=== PATIENT | female | born 1945 | race Caucasian/White ===

== ENCOUNTER 2020-05-26 07:43 | Outpatient (REF) | payer MEDICARE, SELFPAY ==
[2020-05-26 08:34] LABS: MANUAL DIFF FLAG NO
[2020-05-26 08:38] LABS: Basophils Absolute Auto 0.1 X10*3/uL (0.0-0.2); Basophils Percent Auto 0.7 % (0-2); Eosinophils Absolute Auto 0.6 X10*3/uL (0.0-0.4); Eosinophils Percent Auto 6.6 % (0-4); Hematocrit 31.4 % (37-47); Hemoglobin 9.5 g/dl (12.0-16.0); Imm Gran Abs Auto 0.03 X10*3/uL (0.00-0.03); Imm Gran Pct Auto 0.3 % (0.0-0.4); Lymphocytes Absolute Auto 1.6 X10*3/uL (1.2-4.9); Mean Corpuscular HGB Conc 30.3 g/dl (31.0-35.0); Mean Corpuscular Hemoglobin 25.8 pg (27.0-33.0); Mean Corpuscular Volume 85.3 fL (80-98); Mean Platelet Volume 10.6 fL (9.4-12.3); Monocytes Absolute Auto 1.4 X10*3/uL (0.1-1.2); Monocytes Percent Auto 15.7 % (2-11); Neutrophils Absolute Auto 5.3 X10*3/uL (2.0-8.3); Neutrophils Percent Auto 58.7 % (45-73); Platelet Count 264 X10*3/uL (160-400); Red Blood Count 3.68 X10*6/uL (4.20-5.50); Red Cell Distribution Width 16.8 % (11.0-16.0); White Blood Count 9.1 X10*3/uL (4.8-10.8)
[2020-05-26 09:17] LABS: Alanine Aminotransferase 15 U/L (0-31); Albumin Level 3.8 g/dL (3.5-5.0); Alkaline Phosphatase 73 U/L (39-117); Anion Gap 14 (12-20); Aspartate Amino Transferase 24 U/L (5-31); Bilirubin Total 0.3 mg/dL (0.0-1.0); Blood Urea Nitrogen 18 mg/dL (9-16); Calcium 9.2 mg/dL (8.4-10.2); Carbon Dioxide 23 mmol/L (22-29); Chloride 105 mmol/L (96-108); Cholesterol 119 mg/dL; Estimated Glomerular Filt Rate 51; Glucose Random 102 mg/dL (60-115); HDL Cholesterol 59 mg/dL; LDL Cholesterol Calculated 49 mg/dl; Potassium 4.3 mmol/l (3.3-5.1); Sodium 138 mmol/L (135-145); Total Protein 7.4 g/dL (6.5-8.0); Triglycerides 57 mg/dL
[2020-05-26 09:26] LABS: Free T4 (Free Thyroxine) 0.99 ng/dL (0.71-1.85); Thyroid Stimulating Hormone 0.88 uIU/mL (0.32-4.0)
== END 2020-05-26 07:44 | disposition home or self-care (01) ==
LOC: HO.LAB 07:43
PROVIDERS: Visit Provider Internal Medicine Medical Oncology
DX: E03.9 Hypothyroidism, unspecified (principal); S22.080A Wedge compression fracture of T11-T12 vertebra, initial encounter for closed fracture; C81.90 Hodgkin lymphoma, unspecified, unspecified site; C85.80 Other specified types of non-Hodgkin lymphoma, unspecified site; X58.XXXA Exposure to other specified factors, initial encounter; Y93.9 Activity, unspecified; Y92.9 Unspecified place or not applicable; Y99.9 Unspecified external cause status
CPT/HCPCS: 36415; 80053; 80061; 84439; 84443; 85025

== ENCOUNTER 2020-07-22 07:26 | Outpatient (REF) | payer MEDICARE, SELFPAY ==
--- NOTE | ~2020-07-22 | MM_ITS ---
EXAMINATION: MM SCREENING DIGITAL BREAST TOMOSYNTHESIS, LEFT CLINICAL INFORMATION: Right mastectomy for breast cancer 2014. Due for yearly. COMPARISON: Mammography: 07/17/2019, 07/10/2018, 07/05/2017 TECHNIQUE: Digital breast tomosynthesis is performed in both the craniocaudal and mediolateral oblique views along with computer-aided detection (CAD). Synthesized 2D images are generated from the tomosynthesis. Additional exaggerated left CC view is provided. FINDINGS: There are scattered areas of fibroglandular density (ACR BI-RADS breast composition Category b). Parenchymal pattern is similar to prior studies. There is a small dermal lesion again overlying the upper breast. Pacemaker generator overlies and partly obscures the axilla on the MLO view. There are benign grouped coarse calcifications again seen mid upper outer quadrant. There is no interval mass or architectural abnormality or abnormal calcifications. No significant changes. MM/MM tomosynthesis screening LT IMPRESSION: No mammographic evidence of malignancy. ASSESSMENT: BI-RADS 2: Benign RECOMMENDATION: Routine annual mammography screening. This patient's information was entered into a reminder system with a target due date for their next mammogram.
== END 2020-07-22 07:27 | disposition home or self-care (01) ==
LOC: HO.MAMMO 07:26
PROVIDERS: PCP Internal Medicine Medical Oncology; Visit Provider Internal Medicine Medical Oncology
DX: Z12.31 Encounter for screening mammogram for malignant neoplasm of breast (principal)
CPT/HCPCS: 77063; 77067

== ENCOUNTER 2020-08-24 08:18 | Outpatient (REF) | payer MEDICARE, SELFPAY ==
[2020-08-24 09:43] LABS: MANUAL DIFF FLAG NO
[2020-08-24 10:02] LABS: Basophils Absolute Auto 0.1 X10*3/uL (0.0-0.2); Basophils Percent Auto 0.7 % (0-2); Eosinophils Absolute Auto 0.5 X10*3/uL (0.0-0.4); Eosinophils Percent Auto 7.4 % (0-4); Hemoglobin 8.3 g/dl (12.0-16.0); Imm Gran Abs Auto 0.02 X10*3/uL (0.00-0.03); Imm Gran Pct Auto 0.3 % (0.0-0.4); Lymphocytes Absolute Auto 1.3 X10*3/uL (1.2-4.9); Lymphocytes Percent Auto 17.9 % (20-40); Mean Corpuscular HGB Conc 29.6 g/dl (31.0-35.0); Mean Corpuscular Hemoglobin 24.7 pg (27.0-33.0); Mean Corpuscular Volume 83.3 fL (80-98); Mean Platelet Volume 10.8 fL (9.4-12.3); Monocytes Absolute Auto 1.1 X10*3/uL (0.1-1.2); Monocytes Percent Auto 14.4 % (2-11); NRBC Pct Auto 0.3 /100WBC (0.0-0.2); Neutrophils Absolute Auto 4.3 X10*3/uL (2.0-8.3); Neutrophils Percent Auto 59.3 % (45-73); Platelet Count 264 X10*3/uL (160-400); Red Blood Count 3.36 X10*6/uL (4.20-5.50); Red Cell Distribution Width 17.9 % (11.0-16.0); White Blood Count 7.3 X10*3/uL (4.8-10.8)
[2020-08-24 10:17] LABS: Alanine Aminotransferase 15 U/L (0-31); Albumin Level 3.7 g/dL (3.5-5.0); Alkaline Phosphatase 71 U/L (39-117); Anion Gap 13 (12-20); Aspartate Amino Transferase 22 U/L (5-31); Bilirubin Total 0.5 mg/dL (0.0-1.0); Blood Urea Nitrogen 20 mg/dL (9-16); C Reactive Protein 0.07 mg/dL (< or = 0.50); Calcium 9.4 mg/dL (8.4-10.2); Carbon Dioxide 24 mmol/L (22-29); Chloride 105 mmol/L (96-108); Estimated Glomerular Filt Rate 50; Glucose Random 93 mg/dL (60-115); Potassium 4.9 mmol/L (3.3-5.1); Sodium 137 mmol/L (135-145); Total Protein 7.1 g/dL (6.5-8.0)
[2020-08-24 10:41] LABS: Erythrocyte Sedimentation Rate 38 MM/HR (0-20)
[2020-08-24 10:57] LABS: Glucose Urine UA NEG (NEG); Leukocyte Esterase Urine TRACE (NEG); Nitrite Urine NEG (NEG); Urine Blood 1+ (NEG); Urine Ketones NEG (NEG); Urine Protein NEG (NEG-TRACE)
[2020-08-24 11:06] LABS: Appearance Urine CLEAR; Color Urine YELLOW
[2020-08-24 11:51] LABS: Mucus Urine 1+ /LPF; Renal Epithelial Cells Urine 1+ /LPF; Squamous Epithelial Cell Urine 1+ /LPF
== END 2020-08-24 08:19 | disposition home or self-care (01) ==
LOC: HO.LAB 08:18
PROVIDERS: PCP Internal Medicine Medical Oncology; Visit Provider Student in an Organized Health Care Education/Training Program
DX: M35.01 Sjogren syndrome with keratoconjunctivitis (principal)
CPT/HCPCS: 36415; 80053; 81001; 85025; 85652; 86140; 99212

== ENCOUNTER 2020-09-15 07:28 | Outpatient (REF) | payer MEDICARE, SELFPAY ==
[2020-09-15 08:13] LABS: MANUAL DIFF FLAG NO
[2020-09-15 08:40] LABS: Basophils Absolute Auto 0.1 X10*3/uL (0.0-0.2); Basophils Percent Auto 0.7 % (0-2); Eosinophils Absolute Auto 0.6 X10*3/uL (0.0-0.4); Eosinophils Percent Auto 8.2 % (0-4); Hematocrit 27.4 % (37-47); Hemoglobin 8.1 g/dl (12.0-16.0); Imm Gran Abs Auto 0.02 X10*3/uL (0.00-0.03); Imm Gran Pct Auto 0.3 % (0.0-0.4); Lymphocytes Absolute Auto 1.3 X10*3/uL (1.2-4.9); Lymphocytes Percent Auto 18.5 % (20-40); Mean Corpuscular HGB Conc 29.6 g/dl (31.0-35.0); Mean Corpuscular Hemoglobin 24.3 pg (27.0-33.0); Mean Corpuscular Volume 82.3 fL (80-98); Mean Platelet Volume 11.2 fL (9.4-12.3); Monocytes Absolute Auto 1.1 X10*3/uL (0.1-1.2); Monocytes Percent Auto 16.2 % (2-11); NRBC Pct Auto 0.7 /100WBC (0.0-0.2); Neutrophils Absolute Auto 3.8 X10*3/uL (2.0-8.3); Neutrophils Percent Auto 56.1 % (45-73); Platelet Count 278 X10*3/uL (160-400); Red Blood Count 3.33 X10*6/uL (4.20-5.50); Red Cell Distribution Width 18.1 % (11.0-16.0); White Blood Count 6.9 X10*3/uL (4.8-10.8)
[2020-09-15 09:10] LABS: Alanine Aminotransferase 326 U/L (0-31); Albumin Level 3.6 g/dL (3.5-5.0); Alkaline Phosphatase 201 U/L (39-117); Anion Gap 11 (12-20); Aspartate Amino Transferase 372 U/L (5-31); Bilirubin Total 0.5 mg/dL (0.0-1.0); Blood Urea Nitrogen 18 mg/dL (9-16); Calcium 8.9 mg/dL (8.4-10.2); Carbon Dioxide 24 mmol/L (22-29); Chloride 109 mmol/L (96-108); Cholesterol 112 mg/dL; Estimated Glomerular Filt Rate 58; Glucose Random 93 mg/dL (60-115); HDL Cholesterol 59 mg/dL; LDL Cholesterol Calculated 46 mg/dl; Potassium 4.6 mmol/L (3.3-5.1); Sodium 139 mmol/L (135-145); Total Protein 6.9 g/dL (6.5-8.0); Triglycerides 36 mg/dL
[2020-09-15 09:26] LABS: Free T4 (Free Thyroxine) 0.97 ng/dL (0.71-1.85); Thyroid Stimulating Hormone 0.64 uIU/mL (0.32-4.0)
== END 2020-09-15 07:29 | disposition home or self-care (01) ==
LOC: HO.LAB 07:28
PROVIDERS: PCP Internal Medicine Medical Oncology; Visit Provider Internal Medicine Medical Oncology
DX: E03.9 Hypothyroidism, unspecified (principal); C50.911 Malignant neoplasm of unspecified site of right female breast; C81.90 Hodgkin lymphoma, unspecified, unspecified site; C85.80 Other specified types of non-Hodgkin lymphoma, unspecified site; E78.00 Pure hypercholesterolemia, unspecified
CPT/HCPCS: 36415; 80053; 80061; 84439; 84443; 85025

== ENCOUNTER 2020-09-20 15:00 | Outpatient (REF) | payer MEDICARE, SELFPAY ==
[2020-09-20 15:54] LABS: MANUAL DIFF FLAG NO
[2020-09-20 15:59] LABS: Basophils Absolute Auto 0.1 X10*3/uL (0.0-0.2); Basophils Percent Auto 0.6 % (0-2); Eosinophils Absolute Auto 0.5 X10*3/uL (0.0-0.4); Eosinophils Percent Auto 6.5 % (0-4); Hematocrit 27.9 % (37-47); Hemoglobin 8.3 g/dl (12.0-16.0); Imm Gran Abs Auto 0.03 X10*3/uL (0.00-0.03); Imm Gran Pct Auto 0.4 % (0.0-0.4); Lymphocytes Absolute Auto 1.9 X10*3/uL (1.2-4.9); Lymphocytes Percent Auto 24.1 % (20-40); Mean Corpuscular HGB Conc 29.7 g/dl (31.0-35.0); Mean Corpuscular Hemoglobin 24.5 pg (27.0-33.0); Mean Corpuscular Volume 82.3 fL (80-98); Mean Platelet Volume 10.3 fL (9.4-12.3); Monocytes Absolute Auto 1.4 X10*3/uL (0.1-1.2); NRBC Pct Auto 0.4 /100WBC (0.0-0.2); Neutrophils Absolute Auto 3.9 X10*3/uL (2.0-8.3); Neutrophils Percent Auto 50.4 % (45-73); Platelet Count 281 X10*3/uL (160-400); Red Blood Count 3.39 X10*6/uL (4.20-5.50); Red Cell Distribution Width 19.5 % (11.0-16.0); White Blood Count 7.7 X10*3/uL (4.8-10.8)
[2020-09-20 16:37] LABS: Alanine Aminotransferase 176 U/L (0-31); Albumin Level 3.7 g/dL (3.5-5.0); Alkaline Phosphatase 219 U/L (39-117); Anion Gap 12 (12-20); Aspartate Amino Transferase 82 U/L (5-31); Bilirubin Total 0.6 mg/dL (0.0-1.0); Blood Urea Nitrogen 17 mg/dL (9-16); Calcium 9.3 mg/dL (8.4-10.2); Carbon Dioxide 24 mmol/L (22-29); Chloride 106 mmol/L (96-108); Estimated Glomerular Filt Rate 51; Gamma Glutamyl Transpeptidase 394 U/L (7-33); Glucose Random 116 mg/dL (60-115); Potassium 4.4 mmol/L (3.3-5.1); Sodium 138 mmol/L (135-145); Total Protein 7.3 g/dL (6.5-8.0)
[2020-09-20 16:41] LABS: Ferritin 14 ng/mL (10-250)
[2020-09-21 08:15] LABS: HBS Num1 0.38 mIU/mL (0-7.99); HBc Num1 0.09 S/CO (0.00-0.79); Hepatitis B Core Antibody Nonreactive (Nonreactive); ~Hepatitis B Surface Antibody NONREACTIVE (Nonreactive)
[2020-09-21 08:44] LABS: HBsAGNum1 0.23 S/CO (0.00-0.99); Hepatitis A Antibody IgM 0.13 Index (0-0.79); Hepatitis B Surface Antigen Negative (Negative); ~HepC Num1 0.08 S/CO (0.00-0.79); ~Hepatitis A Antibody IgM Nonreactive (Nonreactive); ~Hepatitis C Antibody Nonreactive (Nonreactive)
[2020-09-21 12:11] LABS: Alpha Fetoprotein 2.3 ng/mL
== END 2020-09-20 15:01 | disposition home or self-care (01) ==
LOC: HO.LAB 15:00
PROVIDERS: PCP Internal Medicine Medical Oncology; Visit Provider Internal Medicine Medical Oncology
DX: C81.90 Hodgkin lymphoma, unspecified, unspecified site (principal); C85.80 Other specified types of non-Hodgkin lymphoma, unspecified site; R79.89 Other specified abnormal findings of blood chemistry
CPT/HCPCS: 36415; 80053; 82105; 82728; 82977; 85025; 86704; 86706; 86709; 86803; 87340

== ENCOUNTER 2020-10-05 08:33 | Outpatient (REF) | payer MEDICARE, SELFPAY ==
--- NOTE | ~2020-10-05 | US_ITS ---
EXAMINATION: US ABDOMEN COMPLETE CLINICAL INFORMATION: History of gallstones. Abnormal LFTs. COMPARISON: CT of abdomen 10/14/2019. MRI abdomen 12/07/2016. Renal ultrasound 06/19/2011. TECHNIQUE: Real-time imaging of the abdominal viscera. FINDINGS: PANCREAS: Mixed cystic and solid lesion in the head of the pancreas measures 3.0 x 2.4 x 2.8 cm. ABDOMINAL AORTA: The proximal, mid, and distal segments are normal in caliber. INFERIOR VENA CAVA: Visualized portions are normal. LIVER: The liver is normal in size. The liver contour is normal. Hypoechoic subcapsular right hepatic mass measures 2.1 x 1.9 x 2.1 cm. Increased parenchymal echogenicity. There is no intrahepatic biliary duct dilatation seen. GALLBLADDER: The gallbladder is contracted. Multiple gallstones are present. Gallbladder wall thickening. No evidence of pericholecystic fluid. COMMON BILE DUCT: Normal in caliber measuring 0.6 cm in diameter. RIGHT KIDNEY: No hydronephrosis. No renal calculi or focal parenchymal lesions. The kidney measures 10.5 cm in maximum dimension. LEFT KIDNEY: No hydronephrosis. No renal calculi or focal parenchymal lesions. The kidney measures 9.4 cm in maximum dimension. SPLEEN: Surgically absent. FREE FLUID: None. US/US abdomen complete IMPRESSION: Cholelithiasis. Gallbladder wall thickening. These findings are equivocal for acute cholecystitis. Advise clinical correlation. Hypoechoic subcapsular right hepatic mass measures 2.1 x 1.9 x 2.1 cm. This lesion was not described on prior CT performed on 10/14/2019 For further characterization MR imaging is advised. Complex cystic lesion in the head of the pancreas measures approximately 3.0 x 2.4 x 2.8 cm. This most likely represents a cystic pancreatic neoplasm. The measurements are slightly larger than on prior studies however this may be technical.
[2020-10-05 12:52] LABS: Alanine Aminotransferase 21 U/L (0-31); Albumin Level 3.6 g/dL (3.5-5.0); Alkaline Phosphatase 106 U/L (39-117); Amylase 72 U/L (28-100); Anion Gap 14 (12-20); Aspartate Amino Transferase 33 U/L (5-31); Bilirubin Total 0.4 mg/dL (0.0-1.0); Blood Urea Nitrogen 16 mg/dL (9-16); Calcium 9.5 mg/dL (8.4-10.2); Carbon Dioxide 22 mmol/L (22-29); Chloride 107 mmol/L (96-108); Estimated Glomerular Filt Rate 53; Glucose Random 93 mg/dL (60-115); Lipase 139 U/L (8-78); Potassium 5.1 mmol/L (3.3-5.1); Sodium 138 mmol/L (135-145); Total Protein 7.3 g/dL (6.5-8.0)
[2020-10-05 13:02] LABS: Gamma Glutamyl Transpeptidase 149 U/L (7-33)
[2020-10-05 13:43] LABS: Erythrocyte Sedimentation Rate 38 MM/HR (0-20)
[2020-10-07 13:17] LABS: CA 27.29 30 U/mL (<38)
== END 2020-10-05 08:34 | disposition home or self-care (01) ==
LOC: HO.HMGCX 08:33
PROVIDERS: Visit Provider Internal Medicine Medical Oncology
DX: E03.9 Hypothyroidism, unspecified (principal); E66.9 Obesity, unspecified; E78.5 Hyperlipidemia, unspecified; R94.5 Abnormal results of liver function studies; K80.20 Calculus of gallbladder without cholecystitis without obstruction
CPT/HCPCS: 36415; 76700; 80053; 82150; 82977; 83690; 85652; 86300

== ENCOUNTER 2020-12-28 08:53 | Outpatient (REF) | payer MEDICARE, SELFPAY ==
[2020-12-28 10:52] LABS: Glucose Urine UA NEG (NEG); Leukocyte Esterase Urine 2+ (NEG); Nitrite Urine NEG (NEG); Specific Gravity - Urine 1.015 (1.005-1.025); Urine Blood 2+ (NEG); Urine Ketones 5 MG/DL (NEG); Urine Protein 1+ MG/DL (NEG-TRACE)
[2020-12-28 10:54] LABS: Appearance Urine CLOUDY; Color Urine YELLOW
[2020-12-28 10:56] LABS: Hematocrit 27.8 % (37-47); Hemoglobin 8.3 g/dl (12.0-16.0); Mean Corpuscular HGB Conc 29.9 g/dl (31.0-35.0); Mean Corpuscular Hemoglobin 24.1 pg (27.0-33.0); Mean Corpuscular Volume 80.6 fL (80-98); Mean Platelet Volume 10.8 fL (9.4-12.3); NRBC Pct Auto 0.3 /100WBC (0.0-0.2); Platelet Count 251 X10*3/uL (160-400); Red Blood Count 3.45 X10*6/uL (4.20-5.50); White Blood Count 10.7 X10*3/uL (4.8-10.8)
[2020-12-28 11:15] LABS: Bacteria Urine 2+ /LPF; Squamous Epithelial Cell Urine 3+ /LPF
[2020-12-28 11:22] LABS: Alanine Aminotransferase 10 U/L (0-31); Albumin Level 3.5 g/dL (3.5-5.0); Alkaline Phosphatase 72 U/L (39-117); Anion Gap 12 (12-20); Aspartate Amino Transferase 21 U/L (5-31); Bilirubin Total 0.4 mg/dL (0.0-1.0); Blood Urea Nitrogen 14 mg/dL (9-16); C Reactive Protein 3.02 mg/dL (< or = 0.50); Calcium 8.8 mg/dL (8.4-10.2); Carbon Dioxide 24 mmol/L (22-29); Chloride 104 mmol/L (96-108); Estimated Glomerular Filt Rate 46; Glucose Random 104 mg/dL (60-115); Potassium 4.5 mmol/L (3.3-5.1); Sodium 135 mmol/L (135-145); Total Protein 7.1 g/dL (6.5-8.0)
[2020-12-28 11:34] LABS: Band Neutrophils Percent 0 % (3-5); Lymphocytes Absolute Manual 1.6 X10*3/uL (0.6-4.8); Lymphocytes Percent Manual 15 % (20-40); Monocytes Absolute Manual 1.2 X10*3/uL (0.0-1.2); Monocytes Percent Manual 11 % (2-11); Neutrophils Absolute Manual 7.9 X10*3/uL (2.2-7.9); Neutrophils Percent Manual 74 % (45-73)
[2020-12-28 11:39] LABS: Erythrocyte Sedimentation Rate 60 MM/HR (0-20)
[2020-12-28 11:40] LABS: Acanthocytes 2+ (3-5) /OIF; Burr Cells 2+ (3-5) /OIF; Hypochromasia 1+ (5-14) /OIF; Platelet Estimate NORMAL (NORMAL); Schistocytes 2+ (3-5) /OIF
[2020-12-28 11:41] LABS: Macrocytosis 1+ (5-14) /OIF; Microcytosis 1+ (5-14) /OIF; Platelet Morphology Comment NORM; Polychromasia 1+ (0-2) /OIF; RBC Morphology NOTED
== END 2020-12-28 08:54 | disposition home or self-care (01) ==
LOC: HO.LAB 08:53
PROVIDERS: PCP Internal Medicine Medical Oncology; Visit Provider Nurse Practitioner Family
DX: M35.01 Sjogren syndrome with keratoconjunctivitis (principal); Z79.899 Other long term (current) drug therapy
CPT/HCPCS: 36415; 80053; 81001; 85007; 85025; 85027; 85652; 86140; 99212

== ENCOUNTER 2021-01-10 13:55 | Outpatient (REF) | payer MEDICARE, SELFPAY ==
[2021-01-10 14:43] LABS: Basophils Percent Auto 0.5 % (0-2); Eosinophils Absolute Auto 0.4 X10*3/uL (0.0-0.4); Eosinophils Percent Auto 5.6 % (0-4); Hematocrit 27.3 % (37-47); Imm Gran Abs Auto 0.03 X10*3/uL (0.00-0.03); Imm Gran Pct Auto 0.4 % (0.0-0.4); Immature Retic Fraction 23.1 % (3.0-15.9); Lymphocytes Absolute Auto 1.5 X10*3/uL (1.2-4.9); Lymphocytes Percent Auto 19.6 % (20-40); MANUAL DIFF FLAG SCAN; Mean Corpuscular HGB Conc 29.3 g/dl (31.0-35.0); Mean Corpuscular Hemoglobin 23.9 pg (27.0-33.0); Mean Corpuscular Volume 81.5 fL (80-98); Mean Platelet Volume 10.4 fL (9.4-12.3); Monocytes Absolute Auto 1.3 X10*3/uL (0.1-1.2); NRBC Pct Auto 0.3 /100WBC (0.0-0.2); Neutrophils Absolute Auto 4.4 X10*3/uL (2.0-8.3); Neutrophils Percent Auto 56.9 % (45-73); Platelet Count 367 X10*3/uL (160-400); Red Blood Count 3.35 X10*6/uL (4.20-5.50); Red Cell Distribution Width 19.3 % (11.0-16.0); Reticulocyte Percent 1.5 % (0.5-1.8); SCAN SMEAR FLAG 1; White Blood Count 7.7 X10*3/uL (4.8-10.8)
[2021-01-10 15:03] LABS: SLIDE REVIEW VERIFIED
[2021-01-10 15:29] LABS: Ferritin 13 ng/mL (10-250)
== END 2021-01-10 13:56 | disposition home or self-care (01) ==
LOC: HO.LAB 13:55
PROVIDERS: PCP Internal Medicine Medical Oncology; Visit Provider Internal Medicine Medical Oncology
DX: C50.911 Malignant neoplasm of unspecified site of right female breast (principal); D64.9 Anemia, unspecified
CPT/HCPCS: 36415; 82728; 85025; 85045

== ENCOUNTER 2021-03-20 08:21 | Outpatient (REF) | payer MEDICARE, SELFPAY ==
[2021-03-20 11:48] LABS: Hemoglobin 10.8 g/dl (12.0-16.0); Imm Gran Abs Auto 0.02 X10*3/uL (0.00-0.03); Imm Gran Pct Auto 0.3 % (0.0-0.4); MANUAL DIFF FLAG SCAN; Mean Corpuscular Hemoglobin 27.3 pg (27.0-33.0); Mean Corpuscular Volume 89.4 fL (80.0-98.0); SCAN SMEAR FLAG 1
[2021-03-20 11:50] LABS: Basophils Absolute Auto 0.1 X10*3/uL (0.0-0.2); Basophils Percent Auto 0.7 % (0-2); Eosinophils Absolute Auto 0.4 X10*3/uL (0.0-0.4); Eosinophils Percent Auto 5.7 % (0-4); Hematocrit 35.3 % (37.0-47.0); Immature Retic Fraction 12.7 % (3.0-15.9); Lymphocytes Absolute Auto 1.2 X10*3/uL (1.2-4.9); Lymphocytes Percent Auto 16.9 % (20-40); Mean Corpuscular HGB Conc 30.6 g/dl (31.0-35.0); Mean Platelet Volume 12.1 fL (9.4-12.3); Monocytes Absolute Auto 1.2 X10*3/uL (0.1-1.2); Monocytes Percent Auto 16.6 % (2-11); Neutrophils Absolute Auto 4.2 x10*3/uL (2.0-8.3); Neutrophils Percent Auto 59.8 % (45-73); Platelet Count 216 X10*3/uL (160-400); Red Blood Count 3.95 X10*6/uL (4.20-5.50); Red Cell Distribution Width 22.6 % (11.0-16.0); Retic HGB Equivalent 32.4 pg (30.0-35.0); Reticulocyte Percent 1.4 % (0.5-1.8); Reticulocytes Absolute 0.057 X10*6/uL (0.026-0.095)
[2021-03-20 12:12] LABS: Alanine Aminotransferase 17 U/L (0-31); Albumin Level 3.7 g/dL (3.5-5.0); Alkaline Phosphatase 67 U/L (39-117); Anion Gap 13 (12-20); Aspartate Amino Transferase 28 U/L (5-31); Bilirubin Total 0.4 mg/dL (0.0-1.0); Blood Urea Nitrogen 14 mg/dL (9-16); Calcium 9.4 mg/dL (8.4-10.2); Carbon Dioxide 25 mmol/L (22-29); Chloride 106 mmol/L (96-108); Estimated Glomerular Filt Rate 51; Glucose Fasting 96 mg/dL (60-99); Potassium 4.7 mmol/L (3.3-5.1); Sodium 139 mmol/L (135-145); Total Protein 7.6 g/dL (6.5-8.0)
[2021-03-20 12:22] LABS: SLIDE REVIEW VERIFIED
[2021-03-20 12:36] LABS: Ferritin 24 ng/mL (10-250); Free T4 (Free Thyroxine) 0.97 ng/dL (0.71-1.85); Thyroid Stimulating Hormone 1.12 uIU/mL (0.32-4.0)
[2021-03-20 12:39] LABS: Erythrocyte Sedimentation Rate 34 MM/HR (0-20)
== END 2021-03-20 08:22 | disposition home or self-care (01) ==
LOC: HO.HMGCLDS 08:21
PROVIDERS: PCP Internal Medicine Medical Oncology; Visit Provider Internal Medicine Medical Oncology
DX: E66.9 Obesity, unspecified (principal); E03.9 Hypothyroidism, unspecified; E78.5 Hyperlipidemia, unspecified
CPT/HCPCS: 36415; 80053; 82728; 84439; 84443; 85025; 85045; 85652

== ENCOUNTER 2021-05-29 07:27 | Outpatient (REF) | payer MEDICARE, SELFPAY ==
[2021-05-29 11:34] LABS: MANUAL DIFF FLAG NO
[2021-05-29 11:43] LABS: Basophils Absolute Auto 0.1 X10*3/uL (0.0-0.2); Basophils Percent Auto 0.8 % (0-2); Eosinophils Absolute Auto 0.4 X10*3/uL (0.0-0.4); Eosinophils Percent Auto 6.7 % (0-4); Hematocrit 37.4 % (37.0-47.0); Hemoglobin 11.9 g/dl (12.0-16.0); Imm Gran Abs Auto 0.02 X10*3/uL (0.00-0.03); Imm Gran Pct Auto 0.3 % (0.0-0.4); Lymphocytes Absolute Auto 1.2 X10*3/uL (1.2-4.9); Lymphocytes Percent Auto 19.7 % (20-40); Mean Corpuscular HGB Conc 31.8 g/dl (31.0-35.0); Mean Corpuscular Hemoglobin 30.2 pg (27.0-33.0); Mean Corpuscular Volume 94.9 fL (80.0-98.0); Mean Platelet Volume 12.3 fL (9.4-12.3); Monocytes Absolute Auto 0.8 X10*3/uL (0.1-1.2); Neutrophils Absolute Auto 3.7 x10*3/uL (2.0-8.3); Neutrophils Percent Auto 59.5 % (45-73); Platelet Count 218 X10*3/uL (160-400); Red Blood Count 3.94 X10*6/uL (4.20-5.50); Red Cell Distribution Width 15.4 % (11.0-16.0); White Blood Count 6.2 X10*3/uL (4.8-10.8)
[2021-05-29 12:06] LABS: Alanine Aminotransferase 19 U/L (0-31); Albumin Level 3.6 g/dL (3.5-5.0); Alkaline Phosphatase 69 U/L (39-117); Anion Gap 14 (12-20); Aspartate Amino Transferase 28 U/L (5-31); Bilirubin Total 0.4 mg/dL (0.0-1.0); Blood Urea Nitrogen 16 mg/dL (9-16); Calcium 9.6 mg/dL (8.4-10.2); Carbon Dioxide 24 mmol/L (22-29); Chloride 106 mmol/L (96-108); Estimated Glomerular Filt Rate 49; Glucose Random 86 mg/dL (60-115); Potassium 4.7 mmol/L (3.3-5.1); Sodium 139 mmol/L (135-145); Total Protein 7.4 g/dL (6.5-8.0)
[2021-05-29 12:17] LABS: Erythrocyte Sedimentation Rate 36 MM/HR (0-20)
[2021-05-29 12:28] LABS: Ferritin 36 ng/mL (10-250); Free T4 (Free Thyroxine) 0.95 ng/dL (0.71-1.85); Thyroid Stimulating Hormone 1.66 uIU/mL (0.32-4.0)
== END 2021-05-29 07:28 | disposition home or self-care (01) ==
LOC: HO.HMGCLDS 07:27
PROVIDERS: Visit Provider Internal Medicine Medical Oncology
DX: C81.90 Hodgkin lymphoma, unspecified, unspecified site (principal); C85.80 Other specified types of non-Hodgkin lymphoma, unspecified site; E03.9 Hypothyroidism, unspecified; K86.9 Disease of pancreas, unspecified
CPT/HCPCS: 36415; 80053; 82728; 84439; 84443; 85025; 85652

== ENCOUNTER 2021-05-31 08:27 | Outpatient (REF) | payer MEDICARE, SELFPAY ==
--- NOTE | ~2021-05-31 | US_ITS ---
EXAMINATION: US ABDOMEN COMPLETE CLINICAL INFORMATION: Pancreatic mass. COMPARISON: Ultrasound abdomen complete 10/05/2020. CT abdomen and pelvis 10/14/2019. MRI abdomen 12/07/2016. TECHNIQUE: Real-time imaging of the abdominal viscera. FINDINGS: PANCREAS: There is again noted to be a mostly cystic complex mass within the head of the pancreas which appears to have been slowly increasing over time which now measures 4.0 x 2.7 x 3.2 cm in size compared to approximately 1.9 x 1.3 cm in size on MRI of 04/17/2016. On most recent ultrasound examination of 10/05/2020 it measured approximately 3.0 x 2.4 x 2.8 cm in size. ABDOMINAL AORTA: Mild calcified plaque. No abdominal aortic aneurysm. INFERIOR VENA CAVA: Visualized portions are normal. LIVER: The liver is normal in size. The liver contour is normal. There is again noted to be within the right lobe a majority hyperechoic lesion measuring approximately 2.6 x 3.0 x 3.0 cm in size which by measurements appears somewhat larger in size to prior ultrasound where it measured 2.1 x 1.9 x 2.1 cm in size. On previous MRI performed on 04/17/2016 there was a 2 cm lesion present with the appearance of hemangioma. There is no intrahepatic biliary duct dilatation seen. GALLBLADDER: Cholelithiasis is present with wall thickness up to 8 mm in diameter but no fluid within the wall and no pericholecystic fluid. There was no tenderness to palpation overlying the gallbladder and above finding may be related to chronic cholecystitis. COMMON BILE DUCT: Normal in caliber measuring 0.6 cm in diameter. RIGHT KIDNEY: Normal. No hydronephrosis. No renal calculi or focal parenchymal lesions. The kidney measures 11.0 cm in maximum dimension. LEFT KIDNEY: There is question of a region of increased echogenicity about the upper pole however this is not well seen and there is noted to be a lesion on CT scan with the appearance of an angiomyolipoma on study of 10/14/2019. An abnormality of the upper pole of the left kidney was described on MRI of 04/17/2016. No hydronephrosis. No renal calculi. The kidney measures 9.7 cm in maximum dimension. SPLEEN: Status post splenectomy. FREE FLUID: None. US/US abdomen complete IMPRESSION: Slight increase in size in majority cystic lesion head of the pancreas likely representing a serous or mucinous tumor such as intraductal papillary mucinous neoplasm. Hepatic hemangioma. Cholelithiasis with findings to suggest chronic cholecystitis. 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
== END 2021-05-31 08:28 | disposition home or self-care (01) ==
LOC: HO.HMGCX 08:27
PROVIDERS: PCP Internal Medicine Medical Oncology; Visit Provider Internal Medicine Medical Oncology
DX: K86.9 Disease of pancreas, unspecified (principal); D18.09 Hemangioma of other sites; K80.20 Calculus of gallbladder without cholecystitis without obstruction; Z90.81 Acquired absence of spleen
CPT/HCPCS: 76700

== ENCOUNTER 2021-07-24 08:55 | Outpatient (REF) | payer MEDICARE, SELFPAY ==
--- NOTE | ~2021-07-24 | MM_ITS ---
EXAMINATION: MM SCREENING DIGITAL BREAST TOMOSYNTHESIS, LEFT CLINICAL INFORMATION: Screening. Asymptomatic. Status post right lumpectomy. COMPARISON: Mammography: July 22, 2020 and studies dating back to May 19, 2014 TECHNIQUE: Digital breast tomosynthesis is performed in both the craniocaudal and mediolateral oblique views along with computer-aided detection (CAD). Synthesized 2D images are generated from the tomosynthesis. FINDINGS: There are scattered areas of fibroglandular density (ACR BI-RADS breast composition Category b). There are no new significant masses, abnormal calcifications, or other abnormalities. Left pacemaker powerpack in place. MM/MM tomosynthesis screening LT IMPRESSION: There are no significant changes from prior study. ASSESSMENT: BI-RADS 1: Negative RECOMMENDATION: Routine annual mammography screening. This patient's information was entered into a reminder system with a target due date for their next mammogram.
== END 2021-07-24 08:56 | disposition home or self-care (01) ==
LOC: HO.MAMMO 08:55
PROVIDERS: Visit Provider Internal Medicine Medical Oncology
DX: Z12.31 Encounter for screening mammogram for malignant neoplasm of breast (principal)
CPT/HCPCS: 77063; 77067

== ENCOUNTER → 2021-11-27 09:57 | Outpatient (BNVA) | payer MEDICARE, SELFPAY | PROVIDERS: PCP Internal Medicine Medical Oncology; Visit Provider Internal Medicine Rheumatology | DX: M35.01 Sjogren syndrome with keratoconjunctivitis (principal) | CPT/HCPCS: 99212 ==

== ENCOUNTER 2021-12-13 07:45 | Outpatient (REF) | payer MEDICARE, SELFPAY ==
[2021-12-13 11:15] LABS: MANUAL DIFF FLAG NO
[2021-12-13 11:29] LABS: Basophils Absolute Auto 0.1 X10*3/uL (0.0-0.2); Eosinophils Absolute Auto 0.6 X10*3/uL (0.0-0.4); Eosinophils Percent Auto 8.3 % (0-4); Hematocrit 36.9 % (37.0-47.0); Hemoglobin 11.9 g/dl (12.0-16.0); Imm Gran Abs Auto 0.02 X10*3/uL (0.00-0.03); Imm Gran Pct Auto 0.3 % (0.0-0.4); Lymphocytes Absolute Auto 1.4 X10*3/uL (1.2-4.9); Mean Corpuscular HGB Conc 32.2 g/dl (31.0-35.0); Mean Corpuscular Hemoglobin 31.2 pg (27.0-33.0); Mean Corpuscular Volume 96.9 fL (80.0-98.0); Mean Platelet Volume 13.1 fL (9.4-12.3); Monocytes Percent Auto 13.9 % (2-11); Neutrophils Absolute Auto 4.1 x10*3/uL (2.0-8.3); Neutrophils Percent Auto 57.5 % (45-73); Platelet Count 178 X10*3/uL (160-400); Red Blood Count 3.81 X10*6/uL (4.20-5.50); Red Cell Distribution Width 14.1 % (11.0-16.0); White Blood Count 7.1 X10*3/uL (4.8-10.8)
[2021-12-13 11:50] LABS: Alanine Aminotransferase 15 U/L (0-31); Albumin Level 3.7 g/dL (3.5-5.0); Alkaline Phosphatase 68 U/L (39-117); Amylase 45 U/L (28-100); Anion Gap 15 (12-20); Aspartate Amino Transferase 26 U/L (5-31); Bilirubin Total 0.5 mg/dL (0.0-1.0); Blood Urea Nitrogen 18 mg/dL (9-16); Calcium 9.2 mg/dL (8.4-10.2); Carbon Dioxide 23 mmol/L (22-29); Chloride 106 mmol/L (96-108); Cholesterol 134 mg/dL; Estimated Glomerular Filt Rate 52; Glucose Fasting 98 mg/dL (60-99); HDL Cholesterol 55 mg/dL; LDL Cholesterol Calculated 65 mg/dl; Lipase 53 U/L (8-78); Potassium 4.5 mmol/L (3.3-5.1); Sodium 139 mmol/L (135-145); Total Protein 7.4 g/dL (6.5-8.0); Triglycerides 72 mg/dL
[2021-12-13 12:17] LABS: Erythrocyte Sedimentation Rate 27 MM/HR (0-20)
[2021-12-14 10:07] LABS: Carbohydrate Antigen 19-9 41 U/mL (<34)
== END 2021-12-13 07:46 | disposition home or self-care (01) ==
LOC: HO.HMGCLDS 07:45
PROVIDERS: PCP Internal Medicine Medical Oncology; Visit Provider Internal Medicine Medical Oncology
DX: Z00.00 Encounter for general adult medical examination without abnormal findings (principal); C50.911 Malignant neoplasm of unspecified site of right female breast; E66.9 Obesity, unspecified; E78.01 Familial hypercholesterolemia
CPT/HCPCS: 36415; 80053; 80061; 82150; 83690; 85025; 85652; 86301

== ENCOUNTER 2022-04-26 08:30 | Outpatient (REF) | payer MEDICARE, SELFPAY ==
[2022-04-26 11:12] LABS: MANUAL DIFF FLAG NO
[2022-04-26 11:27] LABS: Basophils Absolute Auto 0.1 X10*3/uL (0.0-0.2); Basophils Percent Auto 0.8 % (0-2); Eosinophils Absolute Auto 0.5 X10*3/uL (0.0-0.4); Eosinophils Percent Auto 5.7 % (0-4); Hematocrit 37.4 % (37.0-47.0); Hemoglobin 11.9 g/dl (12.0-16.0); Imm Gran Abs Auto 0.03 X10*3/uL (0.00-0.03); Imm Gran Pct Auto 0.4 % (0.0-0.4); Lymphocytes Absolute Auto 1.1 X10*3/uL (1.2-4.9); Mean Corpuscular HGB Conc 31.8 g/dl (31.0-35.0); Mean Corpuscular Hemoglobin 31.2 pg (27.0-33.0); Mean Corpuscular Volume 97.9 fL (80.0-98.0); Mean Platelet Volume 12.2 fL (9.4-12.3); Monocytes Absolute Auto 1.1 X10*3/uL (0.1-1.2); Monocytes Percent Auto 12.4 % (2-11); Neutrophils Absolute Auto 5.8 x10*3/uL (2.0-8.3); Neutrophils Percent Auto 67.7 % (45-73); Platelet Count 202 X10*3/uL (160-400); Red Blood Count 3.82 X10*6/uL (4.20-5.50); Red Cell Distribution Width 13.3 % (11.0-16.0); White Blood Count 8.5 X10*3/uL (4.8-10.8)
[2022-04-26 11:54] LABS: Alanine Aminotransferase 15 U/L (0-31); Albumin Level 3.6 g/dL (3.5-5.0); Alkaline Phosphatase 66 U/L (39-117); Anion Gap 12 (12-20); Aspartate Amino Transferase 24 U/L (5-31); Bilirubin Total 0.5 mg/dL (0.0-1.0); Blood Urea Nitrogen 22 mg/dL (9-16); Calcium 9.4 mg/dL (8.4-10.2); Carbon Dioxide 26 mmol/L (22-29); Chloride 107 mmol/L (96-108); Cholesterol 121 mg/dL; Estimated Glomerular Filt Rate 52; Free T4 (Free Thyroxine) 1.02 ng/dL (0.71-1.85); Glucose Fasting 95 mg/dL (60-99); HDL Cholesterol 52 mg/dL; LDL Cholesterol Calculated 58 mg/dl; Potassium 4.5 mmol/L (3.3-5.1); Sodium 140 mmol/L (135-145); Thyroid Stimulating Hormone 1.97 uIU/mL (0.32-4.0); Total Protein 7.1 g/dL (6.5-8.0); Triglycerides 56 mg/dL; Vitamin D 25-OH Total 24.7 ng/mL (>30)
[2022-04-26 12:24] LABS: Erythrocyte Sedimentation Rate 25 MM/HR (0-20)
[2022-04-28 10:37] LABS: Carbohydrate Antigen 19-9 46 U/mL (<34)
== END 2022-04-26 08:31 | disposition home or self-care (01) ==
LOC: HO.HMGCLDS 08:30
PROVIDERS: PCP Internal Medicine Medical Oncology; Visit Provider Internal Medicine Medical Oncology
DX: C50.911 Malignant neoplasm of unspecified site of right female breast (principal); E03.9 Hypothyroidism, unspecified; E66.9 Obesity, unspecified
CPT/HCPCS: 36415; 80053; 80061; 82306; 84439; 84443; 85025; 85652; 86301

== ENCOUNTER 2022-08-06 09:21 | Outpatient (REF) | payer MEDICARE, SELFPAY ==
--- NOTE | ~2022-08-06 | MM_ITS ---
EXAMINATION: MM SCREENING DIGITAL BREAST TOMOSYNTHESIS, LEFT CLINICAL INFORMATION: Prior right mastectomy 2016. Due for yearly. COMPARISON: Mammography: 07/24/2021, 07/22/2020, 07/17/2019, 07/10/2018 TECHNIQUE: Digital breast tomosynthesis is performed in both the craniocaudal and mediolateral oblique views along with computer-aided detection (CAD). Synthesized 2D images are generated from the tomosynthesis. Additional left MLO view is provided. FINDINGS: There are scattered areas of fibroglandular density (ACR BI-RADS breast composition Category b). There is a pacemaker overlying and partly obscuring the left axilla on MLO view. Parenchymal pattern is similar to prior studies and there is no developing density or interval mass or architectural abnormality. There are benign grouped predominantly coarse calcifications again noted mid upper outer quadrant similar to prior studies. There are other predominantly vascular calcifications again seen. The skin contours are smooth. No significant changes. MM/MM tomosynthesis screening LT IMPRESSION: No mammographic evidence of malignancy. ASSESSMENT: BI-RADS 2: Benign RECOMMENDATION: Routine annual mammography screening. This patient's information was entered into a reminder system with a target due date for their next mammogram.
== END 2022-08-06 09:22 | disposition home or self-care (01) ==
LOC: HO.MAMMO 09:21
PROVIDERS: PCP Internal Medicine Medical Oncology; Visit Provider Internal Medicine Medical Oncology
DX: Z12.31 Encounter for screening mammogram for malignant neoplasm of breast (principal)
CPT/HCPCS: 77063; 77067

== ENCOUNTER 2022-08-17 08:34 | Outpatient (REF) | payer MEDICARE, SELFPAY ==
[2022-08-17 11:32] LABS: MANUAL DIFF FLAG NO
[2022-08-17 11:55] LABS: Basophils Absolute Auto 0.1 X10*3/uL (0.0-0.2); Basophils Percent Auto 0.9 % (0-2); Eosinophils Absolute Auto 0.5 X10*3/uL (0.0-0.4); Eosinophils Percent Auto 7.2 % (0-4); Hematocrit 38.8 % (37.0-47.0); Hemoglobin 12.5 g/dl (12.0-16.0); Imm Gran Abs Auto 0.02 X10*3/uL (0.00-0.03); Imm Gran Pct Auto 0.3 % (0.0-0.4); Lymphocytes Absolute Auto 1.1 X10*3/uL (1.2-4.9); Mean Corpuscular HGB Conc 32.2 g/dl (31.0-35.0); Mean Corpuscular Hemoglobin 31.3 pg (27.0-33.0); Mean Platelet Volume 12.6 fL (9.4-12.3); Monocytes Absolute Auto 1.1 X10*3/uL (0.1-1.2); Monocytes Percent Auto 16.3 % (2-11); Neutrophils Absolute Auto 3.8 x10*3/uL (2.0-8.3); Neutrophils Percent Auto 58.3 % (45-73); Platelet Count 181 X10*3/uL (160-400); Red Cell Distribution Width 13.8 % (11.0-16.0); White Blood Count 6.4 X10*3/uL (4.8-10.8)
[2022-08-17 13:53] LABS: Alanine Aminotransferase 16 U/L (0-31); Albumin Level 3.6 g/dL (3.5-5.0); Alkaline Phosphatase 58 U/L (39-117); Anion Gap 11 (12-20); Aspartate Amino Transferase 24 U/L (5-31); Bilirubin Total 0.8 mg/dL (0.0-1.0); Blood Urea Nitrogen 21 mg/dL (9-16); Calcium 9.1 mg/dL (8.4-10.2); Carbon Dioxide 26 mmol/L (22-29); Chloride 108 mmol/L (96-108); Cholesterol 137 mg/dL; Estimated Glomerular Filt Rate 45; Glucose Fasting 95 mg/dL (60-99); HDL Cholesterol 54 mg/dL; LDL Cholesterol Calculated 69 mg/dl; Sodium 140 mmol/L (135-145); Triglycerides 73 mg/dL
[2022-08-20 11:38] LABS: Carbohydrate Antigen 19-9 54 U/mL (<34)
== END 2022-08-17 08:35 | disposition home or self-care (01) ==
LOC: HO.HMGCLDS 08:34
PROVIDERS: PCP Internal Medicine Medical Oncology; Visit Provider Internal Medicine Medical Oncology
DX: C50.911 Malignant neoplasm of unspecified site of right female breast (principal); C85.80 Other specified types of non-Hodgkin lymphoma, unspecified site; E66.9 Obesity, unspecified; C25.3 Malignant neoplasm of pancreatic duct
CPT/HCPCS: 36415; 80053; 80061; 85025; 86301

== ENCOUNTER 2022-10-17 10:32 | Outpatient (REF) | payer MEDICARE, SELFPAY ==
--- NOTE | ~2022-10-17 | XR_ITS ---
EXAMINATION: LUMBAR SPINE AND PELVIS CLINICAL INFORMATION: Back and buttock pain COMPARISON: CT abdomen pelvis 11/01/2017, lumbar spine 10/08/2017 TECHNIQUE: 3 views lumbosacral spine, single view FINDINGS: Again seen are mild degenerative changes throughout the lumbar spine most marked at L3-L4 with near obliteration of the disc space. There is minimal grade 1 anterolisthesis at this level as well. Kyphoplasty changes are present at T11 and T12 with new treated compression fracture of the T12 vertebral body since 10/08/2017. Appearances are unchanged when compared to the 10/14/2019 CT scan. No pelvic fractures are seen. The visualized hips appear unremarkable. Some mild sclerotic change present at the pubic symphysis. XR/XR lumbar spine 2-3V IMPRESSION: 1. Degenerative changes in the lumbar spine most marked at L3-L4 with grade 1 anterolisthesis. 2. Kyphoplasty changes at T11 and T12 3. No evidence of any acute injury.
--- NOTE | ~2022-10-17 | XR_ITS ---
EXAMINATION: LUMBAR SPINE AND PELVIS CLINICAL INFORMATION: Back and buttock pain COMPARISON: CT abdomen pelvis 11/01/2017, lumbar spine 10/08/2017 TECHNIQUE: 3 views lumbosacral spine, single view FINDINGS: Again seen are mild degenerative changes throughout the lumbar spine most marked at L3-L4 with near obliteration of the disc space. There is minimal grade 1 anterolisthesis at this level as well. Kyphoplasty changes are present at T11 and T12 with new treated compression fracture of the T12 vertebral body since 10/08/2017. Appearances are unchanged when compared to the 10/14/2019 CT scan. No pelvic fractures are seen. The visualized hips appear unremarkable. Some mild sclerotic change present at the pubic symphysis. XR/XR pelvis 1-2V IMPRESSION: 1. Degenerative changes in the lumbar spine most marked at L3-L4 with grade 1 anterolisthesis. 2. Kyphoplasty changes at T11 and T12 3. No evidence of any acute injury.
== END 2022-10-17 10:33 | disposition home or self-care (01) ==
LOC: HO.XRAY 10:32
PROVIDERS: PCP Internal Medicine Medical Oncology; Visit Provider Internal Medicine Medical Oncology
DX: M79.18 Myalgia, other site (principal); M54.9 Dorsalgia, unspecified
CPT/HCPCS: 72100; 72170

== ENCOUNTER 2022-11-13 08:53 | Outpatient (AMB) | payer MEDICARE, SELFPAY ==
[2022-10-23 07:49] VITALS: BP 130/62; BP 138/70; BMI 33.3
[2022-11-13 08:57] VITALS: BP 118/72; PULSE 75; TEMP 36.5; O2SAT 95; BMI 33.2
--- NOTE | 2022-11-13 08:57 | A.OFFVIS_ITS ---
Intake Vital Signs 11/13/22 08:57 Height 5 ft 1 in Weight 175 lb 11.335 oz BMI 33.2 BP 118/72 Blood Pressure Location Lt brachial Position Sitting Pulse 75 Pulse Source Pulse Oximeter Temp 97.7 F Temp Source Skin Pulse Oximetry (%) 95 Intake Visit Reasons: sjogren's Intake Note: Pt seen today for SS follow up. Reports bl hip cortisone injections 11/12/2022 Dr Gerardo Machine Wood Sander Required: No Accompanied by: Self / Same As Patient Allergies amoxicillin [AMOXICILLIN] Allergy (Mild, Verified 11/13/22 09:00) hives, anaphylaxis, hives Penicillins [PENICILLINS] Allergy (Mild, Verified 11/13/22 09:00) hives Sulfa (Sulfonamide Antibiotics) [SULFA (SULFONAMIDE ANTIBIOTICS)] Allergy (Mild, Verified 11/13/22 09:00) HIVES Medication List - Last Reconciled 11/13/22 by Charles Castillo MD alendronate 70 mg PO QWEEK apixaban (Eliquis) 5 mg PO BID aspirin 81 mg PO DAILY atenolol 25 mg PO BID calcium carbonate 600 mg PO BID cholecalciferol (vitamin D3) 25 mcg PO DAILY ferrous sulfate 325 mg PO Q OTHER DAY fluorometholone 0.1% 1 drp ophthalmic (eye) Q OTHER DAY ketorolac 0.5% 1 drp ophthalmic-Right TID levothyroxine 100 mcg PO DAILY lifitegrast 5% (Xiidra) 1 drp ophthalmic-Right BID peg 400-propylene glycol (PF) 0.4-0.3 % (Systane (PF)) 1 drp ophthalmic-Right BID-QID PRN simvastatin 40 mg PO DAILY trazodone 50 mg PO BEDTIME PRN HPI HPI Comments History of Present Illness Details The patient returns for evaluation of her Sjogren's syndrome and associated sicca symptoms. She is on eyedrops prescribed by the senior manufacturing engineer. She was doing better taking cevimeline but we had to switch to pilocarpine because of insurance coverage issues. She was taking only 1 or 2 a day of the pilocarpine and it seemed to cause nausea so she stopped it. She had no vomiting, sweating, or increased urination, just the nausea. Since I last seen her she had a TAVR done that went uneventfully. She also had a right cataract surgery done. [facility] Medical History (Updated 11/13/22 @ 07:28 by Charles Castillo MD) Sjogren's syndrome with keratoconjunctivitis sicca Surgical History (Updated 11/13/22 @ 09:13 by JOE Faye) History of cardiac catheterization Social History (Updated 11/13/22 @ 09:08 by JOE Faye) Household Members: Spouse Household Members Other:: Daughter Alcohol intake: current Alcohol intake frequency: holidays/special occasions only Patient Tobacco Use Status: Former Tobacco user Quit Date: 1964 Cigarette Packs Per Day: 0.25 Years Smoked: 1 e-Cigarette/Vaping Use: Never Used Review of Systems Const Details: Negative for appetite change, weight change, fever, chills, malaise and fatigue Eyes Details: Ocular dryness continues. Negative for vision change, dry eyes,headaches and dizziness ENT Details: Oral dryness continues. Negative for hearing change, tinnitus, oral ulcer, nose bleeds Card Details: Negative chest pain, edema and syncope Resp Details: Negative for SOB, cough and wheezing GI Details: Negative indigestion/heartburn, nausea, abdominal pain, bowel changes, diarrhea, constipation and bloody stool. Skin/Breast Details: Negative for itching, rash, hives, Raynaud's symptoms, sun sensitivity, and skin cancer Neuro Details: Negative for epilepsy, palsy, stroke, changes in speech, tingling and weakness Niels/Lymph Details: Negative for excessive bruising or bleeding. Physical Exam Vital Signs: Last Vital Signs Temp 97.7 F 11/13/22 08:57 Pulse 75 11/13/22 08:57 BP 118/72 11/13/22 08:57 Pulse Ox 95 11/13/22 08:57 BMI result Body Mass Index 33.2 APPEARANCE: Patient in no acute distress EYES no redness, pupils equal and reactive to light, eyelids normal EARS:? External ear normal, canal clear and tympanic membrane normal. NOSE/SINUS:? Airflow through both nares, no nasal discharge, no bleeding THROAT:? Oral mucosa moist, no ulcerations NECK:? No thyromegaly or masses, no adenopathy, trachea midline. HEART:? Regulrar rhythm, S1-S2 heard, grade 1-2/6 systolic murmur at the left sternal border.? No rubs or gallops. LUNG:? Clear to percussion and auscultation ABD:? Normal bowel sounds, no organomegaly, masses or tenderness. EXTREMITIES:? No edema, no calf tenderness, normal peripheral pulses. SKIN:? No inflammatory or neoplastic lesions.? Normal color and turgor JOINT EXAM:.?? Cervical Spine:.? Full range of motion without pain; no tenderness. Thoracic Spine:.? No scoliosis.? Some kyphosis.? No tenderness on palpation. Lumbar Spine:.? Alignment normal.? Lumbar pain with flexion at about 60 degrees.? Mostly this is in the paraspinal muscles.? No spinal tenderness tenderness. Chest Wall:.? No tenderness, swelling, increased warmth or erythema. Hands:.? Normal pain-free range of motion with only slight bony enlargement at the thumb IP joints but these are not tender.? Elsewhere there is no tenderness, swelling, increased warmth or erythema. Able to make a full fist and has a good obstetrician gynecologist strength. Wrists:.? Normal pain-free range of motion without tenderness, swelling, increased warmth or erythema. Elbows:. Normal pain-free range of motion without tenderness, swelling, increase d warmth or erythema. Shoulders:.?? Right:? Mild pain with abduction 135 degrees and motion is limited at 150 degrees of abduction.? There is some slight anterior tenderness without adenopathy or abductor weakness.? Left: Mild pain with abduction 100 degrees and abduction is limited at 135 degrees.? Slightly tender without abductor weakness or adenopathy. Hips:.? Full range of motion without pain. Hip bursa:.? No tenderness. Knees:.?? Normal pain-free range of motion with mild patellofemoral crepitus.? No effusion, soft tissue swelling, increased warmth or erythema.? There is no effusion or crepitation Ankles:? Normal pain-free range of motion without tenderness, swelling, increased warmth or erythema. Feet:? Normal pain-free range of motion without tenderness, swelling, increased warmth or erythema. Assessment & Plan Assessment & Plan (1) Sjogren's syndrome with keratoconjunctivitis sicca: Comment: on jazmín, cheanged to pilocarpine 12/2021(coverage issue) Code(s): M35.01 - Sjogren syndrome with keratoconjunctivitis Plan Sjogren's syndrome with mostly dry eye and dry mouth symptoms. She said she was more comfortable taking the cevimeline so we will try to get that approved by her insurance. I sent in the prescription will see if is rejected this time. She will probably need a follow-up in about a year. She will call us then for an appointment. If the insurance requires a prior authorization done we will have to submit some documentation that she could not tolerate the pilocarpine. Medications: New cevimeline 1 cap PO TID 270 caps 3RF M35.01 - Sjogren syndrome with keratoconjunctivitis Coding Level of Care Code Est Pt Level 3 (71177) Diagnoses Sjogren's syndrome with keratoconjunctivitis sicca M35.01
== END 2022-11-13 09:37 | disposition home or self-care (01) ==
LOC: HO.RHE 08:53
PROVIDERS: PCP Internal Medicine Medical Oncology; Visit Provider Internal Medicine Rheumatology
DX: M35.01 Sjogren syndrome with keratoconjunctivitis (principal)
CPT/HCPCS: 99213

== ENCOUNTER → 2022-11-13 08:53 | Outpatient (BNVA) | payer MEDICARE, SELFPAY ==
[2022-10-23 07:49] VITALS: BP 130/62; BP 138/70; BMI 33.3
== END ==
PROVIDERS: PCP Internal Medicine Medical Oncology; Visit Provider Internal Medicine Rheumatology
DX: M35.01 Sjogren syndrome with keratoconjunctivitis (principal); Z79.899 Other long term (current) drug therapy
CPT/HCPCS: 99212

== ENCOUNTER 2023-01-30 08:43 | Outpatient (REF) | payer MEDICARE, SELFPAY ==
[2023-01-14 15:19] VITALS: BP 130/62; BP 134/66; BP 138/70; BMI 33.3
[2023-01-30 11:14] LABS: MANUAL DIFF FLAG NO
[2023-01-30 11:36] LABS: Basophils Absolute Auto 0.1 X10*3/uL (0.0-0.2); Basophils Percent Auto 0.8 % (0-2); Eosinophils Absolute Auto 0.6 X10*3/uL (0.0-0.4); Hematocrit 38.2 % (37.0-47.0); Hemoglobin 11.9 g/dl (12.0-16.0); Imm Gran Abs Auto 0.02 X10*3/uL (0.00-0.03); Imm Gran Pct Auto 0.3 % (0.0-0.4); Lymphocytes Absolute Auto 1.2 X10*3/uL (1.2-4.9); Lymphocytes Percent Auto 15.7 % (20-40); Mean Corpuscular HGB Conc 31.2 g/dl (31.0-35.0); Mean Corpuscular Hemoglobin 30.7 pg (27.0-33.0); Mean Corpuscular Volume 98.5 fL (80.0-98.0); Mean Platelet Volume 12.9 fL (9.4-12.3); Monocytes Percent Auto 13.6 % (2-11); Neutrophils Absolute Auto 4.7 x10*3/uL (2.0-8.3); Neutrophils Percent Auto 61.6 % (45-73); Platelet Count 172 X10*3/uL (160-400); Red Blood Count 3.88 X10*6/uL (4.20-5.50); Red Cell Distribution Width 14.3 % (11.0-16.0); White Blood Count 7.7 X10*3/uL (4.8-10.8)
[2023-01-30 12:03] LABS: Alanine Aminotransferase 67 U/L (0-31); Albumin Level 3.6 g/dL (3.5-5.0); Alkaline Phosphatase 88 U/L (39-117); Anion Gap 10 (12-20); Aspartate Amino Transferase 44 U/L (5-31); Bilirubin Total 0.5 mg/dL (0.0-1.0); Blood Urea Nitrogen 22 mg/dL (9-16); Calcium 9.5 mg/dL (8.4-10.2); Carbon Dioxide 27 mmol/L (22-29); Chloride 106 mmol/L (96-108); Cholesterol 116 mg/dL (<200); Estimated Glomerular Filt Rate 47; Glucose Random 91 mg/dL (60-115); HDL Cholesterol 51 mg/dL (>40); LDL Cholesterol Calculated 52 mg/dL (<100); Lactate Dehydrogenase 244 U/L (122-220); Potassium 4.7 mmol/L (3.3-5.1); Sodium 138 mmol/L (135-145); Total Protein 6.8 g/dL (6.5-8.0); Triglycerides 65 mg/dL (<150)
[2023-01-30 12:26] LABS: Erythrocyte Sedimentation Rate 16 MM/HR (0-20)
== END 2023-01-30 08:44 | disposition home or self-care (01) ==
LOC: HO.HMGCLDS 08:43
PROVIDERS: PCP Internal Medicine Medical Oncology; Visit Provider Internal Medicine Medical Oncology
DX: Z00.00 Encounter for general adult medical examination without abnormal findings (principal); C50.911 Malignant neoplasm of unspecified site of right female breast; E66.9 Obesity, unspecified; E03.9 Hypothyroidism, unspecified; E78.01 Familial hypercholesterolemia
CPT/HCPCS: 36415; 80053; 80061; 83615; 85025; 85652

== ENCOUNTER 2023-06-03 07:56 | Outpatient (REF) | payer MEDICARE, SELFPAY ==
[2023-01-14 15:19] VITALS: BP 130/62; BP 134/66; BP 138/70; BMI 33.3
[2023-06-03 11:11] LABS: MANUAL DIFF FLAG NO
[2023-06-03 11:28] LABS: Basophils Absolute Auto 0.1 X10*3/uL (0.0-0.2); Basophils Percent Auto 0.9 % (0-2); Eosinophils Absolute Auto 0.5 X10*3/uL (0.0-0.4); Eosinophils Percent Auto 7.9 % (0-4); Hematocrit 37.5 % (37.0-47.0); Hemoglobin 12.1 g/dl (12.0-16.0); Imm Gran Abs Auto 0.03 X10*3/uL (0.00-0.03); Imm Gran Pct Auto 0.4 % (0.0-0.4); Lymphocytes Absolute Auto 1.3 X10*3/uL (1.2-4.9); Lymphocytes Percent Auto 18.2 % (20-40); Mean Corpuscular HGB Conc 32.3 g/dl (31.0-35.0); Mean Corpuscular Hemoglobin 31.5 pg (27.0-33.0); Mean Corpuscular Volume 97.7 fL (80.0-98.0); Mean Platelet Volume 12.4 fL (9.4-12.3); Monocytes Percent Auto 14.4 % (2-11); NRBC Pct Auto 0.3 /100WBC (0.0-0.2); Neutrophils Percent Auto 58.2 % (45-73); Platelet Count 195 X10*3/uL (160-400); Red Blood Count 3.84 X10*6/uL (4.20-5.50); Red Cell Distribution Width 13.9 % (11.0-16.0); White Blood Count 6.9 X10*3/uL (4.8-10.8)
[2023-06-03 12:19] LABS: Erythrocyte Sedimentation Rate 18 MM/HR (0-20)
[2023-06-03 12:26] LABS: Alanine Aminotransferase 23 U/L (0-31); Albumin Level 3.6 g/dL (3.5-5.0); Alkaline Phosphatase 70 U/L (39-117); Anion Gap 9 (12-20); Aspartate Amino Transferase 28 U/L (5-31); Bilirubin Total 0.4 mg/dL (0.0-1.0); Blood Urea Nitrogen 16 mg/dL (9-16); Calcium 9.5 mg/dL (8.4-10.2); Carbon Dioxide 29 mmol/L (22-29); Chloride 107 mmol/L (96-108); Cholesterol 120 mg/dL (<200); Estimated Glomerular Filt Rate 45; Glucose Fasting 96 mg/dL (60-99); HDL Cholesterol 60 mg/dL (>40); LDL Cholesterol Calculated 50 mg/dL (<100); Potassium 4.7 mmol/L (3.3-5.1); Sodium 140 mmol/L (135-145); Total Protein 7.2 g/dL (6.5-8.0); Triglycerides 53 mg/dL (<150)
[2023-06-03 12:47] LABS: Lactate Dehydrogenase 291 U/L (122-220)
[2023-06-03 13:01] LABS: Free T4 (Free Thyroxine) 0.94 ng/dL (0.71-1.85); Thyroid Stimulating Hormone 3.22 uIU/mL (0.32-4.0)
[2023-06-04 10:04] LABS: Carbohydrate Antigen 19-9 42 U/mL (<34)
== END 2023-06-03 07:57 | disposition home or self-care (01) ==
LOC: HO.HMGCLDS 07:56
PROVIDERS: PCP Internal Medicine Medical Oncology; Visit Provider Internal Medicine Medical Oncology
DX: C50.911 Malignant neoplasm of unspecified site of right female breast (principal); E66.9 Obesity, unspecified; E03.9 Hypothyroidism, unspecified; E78.01 Familial hypercholesterolemia; D49.0 Neoplasm of unspecified behavior of digestive system
CPT/HCPCS: 36415; 80053; 80061; 83615; 84439; 84443; 85025; 85652; 86301

== ENCOUNTER 2023-07-23 10:26 | Inpatient (IN) | payer MEDICARE, SELFPAY ==
[2023-01-14 15:19] VITALS: BP 130/62; BP 134/66; BP 138/70; BMI 33.3
--- NOTE | 2023-07-23 | ECG_ITS ---
Test Reason : DYSPNEA Blood Pressure : / mmHG Vent. Rate : 075 BPM Atrial Rate : 107 BPM P-R Int : 178 ms QRS Dur : 122 ms QT Int : 408 ms P-R-T Axes : 000 -75 091 degrees QTc Int : 455 ms V pacing and some ?A pacing Underlying rhythm possibly atrial fibrillation Right bundle branch block Left anterior fascicular block Bifascicular block Cannot rule out Anterior infarct , age undetermined Abnormal ECG When compared with ECG of 19-SEP-2005 15:33, rhythm change Referred By: Generic ED Physician Electronically Signed By:EJ ANN
--- NOTE | ~2023-07-23 | XR_ITS ---
EXAMINATION: XR CHEST CLINICAL INFORMATION: Dyspnea COMPARISON: None available. TECHNIQUE: 2 views of the chest were obtained. FINDINGS: The lungs are expanded with mild blunting of left CP angle from pleural effusion or pleural thickening with underlying atelectasis. Rest of the lungs are otherwise clear. Heart size is normal. Pulmonary vascularity is mildly prominent but no congestion suspected. There are dual pacer electrodes in right atrium and right ventricle. 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 No gross bony abnormality. XR/XR chest 2V IMPRESSION: Suspect small left pleural effusion and/or thickening with underlying atelectasis. Prominent pulmonary vascularity but no congestion suspected.
[2023-07-23 10:34] VITALS: BP 154/71; PULSE 92; RESP 22; TEMP 36.8; O2SAT 98; BMI 37.4
[2023-07-23 11:25] LABS: MANUAL DIFF FLAG NO
[2023-07-23 11:27] LABS: Basophils Absolute Auto 0.1 X10*3/uL (0.0-0.2); Basophils Percent Auto 0.4 % (0-2); Eosinophils Absolute Auto 0.1 X10*3/uL (0.0-0.4); Eosinophils Percent Auto 0.4 % (0-4); Hematocrit 35.5 % (37.0-47.0); Hemoglobin 11.5 g/dl (12.0-16.0); Imm Gran Abs Auto 0.05 X10*3/uL (0.00-0.03); Imm Gran Pct Auto 0.4 % (0.0-0.4); Lymphocytes Absolute Auto 0.7 X10*3/uL (1.2-4.9); Lymphocytes Percent Auto 5.5 % (20-40); Mean Corpuscular HGB Conc 32.4 g/dl (31.0-35.0); Mean Corpuscular Volume 95.7 fL (80.0-98.0); Mean Platelet Volume 10.3 fL (9.4-12.3); Monocytes Absolute Auto 1.4 X10*3/uL (0.1-1.2); Monocytes Percent Auto 11.3 % (2-11); NRBC Pct Auto 0.3 /100WBC (0.0-0.2); Neutrophils Absolute Auto 9.7 x10*3/uL (2.0-8.3); Platelet Count 221 X10*3/uL (160-400); Red Blood Count 3.71 X10*6/uL (4.20-5.50); Red Cell Distribution Width 14.3 % (11.0-16.0); White Blood Count 11.9 X10*3/uL (4.8-10.8)
[2023-07-23 11:34] LABS: Prothrombin Time 24.2 SEC (11.1-13.3)
[2023-07-23 11:42] LABS: Alanine Aminotransferase 28 U/L (0-31); Albumin Level 3.6 g/dL (3.5-5.0); Alkaline Phosphatase 71 U/L (39-117); Anion Gap 17 (12-20); Aspartate Amino Transferase 25 U/L (5-31); Bilirubin Total 1.1 mg/dL (0.0-1.0); Blood Urea Nitrogen 15 mg/dL (9-16); Carbon Dioxide 18 mmol/L (22-29); Chloride 105 mmol/L (96-108); Creatinine Clr Calc Pharmacy 55.8; Estimated Glomerular Filt Rate 54; Glucose Random 124 mg/dL (60-115); Potassium 4.1 mmol/L (3.3-5.1); Sodium 136 mmol/L (135-145); Total Protein 7.1 g/dL (6.5-8.0)
[2023-07-23 11:47] LABS: B Type Natriuretic Peptide 483 pg/mL (<100)
[2023-07-23 11:49] LABS: Troponin-I High Sensitivity 4.1 ng/L (<3.5-17.0)
[2023-07-23 15:57] VITALS: BP 148/79; PULSE 97; RESP 20; TEMP 37.4; O2SAT 96
--- NOTE | 2023-07-23 15:57 | ED.SOB ---
HPI - SOB/Dyspnea General Chief Complaint: Dyspnea Stated Complaint: Diff Breathing Time Seen by Provider: 07/23/23 19:32 Source: patient Mode of arrival: ambulatory Limitations: no limitations History of Present Illness HPI Narrative: Patient history of TAVR, AFib, status post ppm in 2019 comes here for increased shortness of breath patient on exertion for last 1 week got worse last few days no even lying down patient feels short of breath patient also feeling palpitations whenever she feels short of breath feels exhausted no fever no chills no cough Related Data Home Medications Medication Instructions Recorded Confirmed apixaban 5 mg tablet (Eliquis) 5 mg PO BID 08/24/20 07/23/23 cholecalciferol (vitamin D3) 25 25 mcg PO DAILY 08/24/20 07/23/23 mcg (1,000 unit) capsule levothyroxine 100 mcg capsule 100 mcg PO DAILY 08/24/20 07/23/23 simvastatin 40 mg tablet 40 mg PO BEDTIME 08/24/20 07/23/23 calcium carbonate 600 mg calcium 600 mg PO BID 11/27/21 07/23/23 (1,500 mg) tablet ferrous sulfate 325 mg (65 mg 325 mg PO DAILY 11/27/21 07/23/23 iron) tablet alendronate 70 mg tablet 70 mg PO MOREIRA 11/13/22 07/23/23 aspirin 81 mg tablet,delayed 81 mg PO DAILY 11/13/22 07/23/23 release fluorometholone 0.1 % eye 1 drp ophthalmic (eye) Q48H 11/13/22 07/23/23 drops,suspension metoprolol tartrate 25 mg tablet 25 mg PO BID 07/23/23 07/23/23 peg 400-propylene glycol (PF) 0.4 1 drp ophthalmic (eye) 5XD PRN Dry 07/23/23 07/23/23 %-0.3 % eye drops in a dropperette Eyes (Systane (PF)) trazodone 150 mg tablet 150 mg PO BEDTIME Insomnia 07/23/23 07/23/23 Allergies Allergy/AdvReac Type Severity Reaction Status Date / Time amoxicillin [AMOXICILLIN] Allergy Mild hives, Verified 07/23/23 10:39 anaphylaxis, hives Penicillins [PENICILLINS] Allergy Mild hives Verified 07/23/23 10:39 Sulfa (Sulfonamide Allergy Mild HIVES Verified 07/23/23 10:39 Antibiotics) [SULFA (SULFONAMIDE ANTIBIOTICS)] Review of Systems Review of Systems: Yes all other systems are reviewed and are negative COUNTS INCLUDE 234 BEDS AT THE [facility] Past Medical History Medical History Sjogren's syndrome with keratoconjunctivitis sicca Surgical History History of cardiac catheterization Social History Social History Household Members: Spouse Household Members Other:: Daughter Housing: House Alcohol intake: current Alcohol intake frequency: holidays/special occasions only Patient Tobacco Use Status: Former Tobacco user Quit Date: 1964 Cigarette Packs Per Day: 0.25 Years Smoked: 1 e-Cigarette/Vaping Use: Never Used service: No Physical Exam Vital Signs: Vital Signs: Last Vital Signs Temp 98.3 F 07/24/23 16:00 Pulse 88 07/24/23 16:00 Resp 16 07/24/23 16:00 BP 135/66 07/24/23 16:00 Pulse Ox 95 07/24/23 16:00 O2 Del Method Room Air 07/24/23 16:00 BMI result Body Mass Index 37.4 Appearance: Alert. Oriented X3. No acute distress. Eyes: no pallor ENT: Pharynx normal. Oral Mucosa moist Neck: Normal inspection. Neck supple. CVS: Normal heart rate and rhythm. Pulses normal. Respiratory: No respiratory distress. Equal air entry bilateral, no wheezing/rales/rhonchi Abdomen: Soft and nontender. Bowel sounds are present, no mass palpable, no CVA tenderness Skin: Skin warm and dry. Normal skin color. Normal skin turgor. Extremities: No lower extremity edema. No calf tenderness Neuro: Oriented X 3. No motor deficit. No sensory deficit.No cerebellar signs , cranial nerves II-XII intact Course Course Course Narrative: This is an RME: Additional HPI, ROS, PE not included below will be deferred to primary provider. This is a 55-[id number]-female, with a hx of atrial fibrillation, presenting to the emergency departmenet with a complaint of chest pain, shortness of breath x 1 week. Pt states that she also has had some lower extremity swelling. She states that when she is lying flat she is getting or shortness of breath. Plan: Chest x-ray, labs, EKG, further ER evaluation needed Medications Administered Generic Name Dose Route Start Last Admin Trade Name Karq PRN Reason Stop Dose Admin Apixaban 5 mg 07/23/23 22:15 07/24/23 07:14 Apixaban 5 Mg Tablet PO 5 mg BID JULIO Administration Aspirin 81 mg 07/24/23 09:00 07/24/23 07:14 Aspirin Enteric Coated 81 Mg Tablet. PO 81 mg DAILY JULIO Administration Calcium Carbonate 500 mg 07/24/23 09:00 07/24/23 07:14 Calcium Carbonate 500 Mg Tablet PO 500 mg BID JULIO Administration Ferrous Sulfate 324 mg 07/24/23 09:00 07/24/23 07:14 Ferrous Sulfate 324 Mg Tablet. PO 324 mg DAILY JULIO Administration Furosemide 40 mg 07/24/23 09:00 07/24/23 07:15 Furosemide 40 Mg/4 Ml Vial IVPUSH 40 mg DAILY JULIO Administration Protocol Levothyroxine Sodium 100 mcg 07/24/23 06:00 07/24/23 06:18 Levothyroxine Sodium 100 Mcg Tablet PO 100 mcg DAILY@0600 JULIO Administration Metoprolol Tartrate 25 mg 07/23/23 22:15 07/24/23 07:14 Metoprolol Tartrate 25 Mg Tablet PO 25 mg BID JULIO Administration Protocol Sodium Chloride 3 ml 07/24/23 00:00 07/24/23 14:32 0.9 % Sodium Chloride Flush 3 Ml Syringe IVFLUSH 3 ml QSHIFT JUILO Administration Trazodone HCl 150 mg 07/23/23 22:15 07/23/23 22:43 Trazodone Hcl 50 Mg Tablet PO 150 mg BEDTIME JULIO Administration Vitamin D 25 mcg 07/24/23 09:00 07/24/23 07:14 Cholecalciferol (Vitamin D3) 25 Mcg Tablet PO 25 mcg DAILY JULIO Administration Discontinued Medications Generic Name Dose Route Start Last Admin Trade Name Karq PRN Reason Stop Dose Admin Furosemide 40 mg 07/23/23 20:10 07/23/23 21:09 Furosemide 40 Mg/4 Ml Vial IVPUSH 07/23/23 20:11 40 mg ONCE ONE Administration Protocol Medical Decision Making Medical Decision Making [facility] Narrative: Patient with exertional dyspnea orthopnea now with history of AFib and tablets with elevated BNP likely CHF not on diuretics. Will admit patient IV diuresis and further evaluation Differential Diagnosis Differential Diagnoses: The differential diagnosis associated with the presentation includes CHF/AFib Admission/Observation Consideration of admission/observation: Escalation of care including admission/observation considered Consult Healthcare Provider Management of the patient was discussed with: Hospitalist Lab Data MDM Lab Attestation statement: I reviewed the patient's lab results. 07/24/23 05:58 07/24/23 05:58 Labs: Lab Results 07/23/23 07/23/23 Range/Units 11:12 16:11 WBC 11.9 H (4.8-10.8) X10*3/uL RBC 3.71 L (4.20-5.50) X10*6/uL Hgb 11.5 L (12.0-16.0) g/dl Hct 35.5 L (37.0-47.0) % MCV 95.7 (80.0-98.0) fL MCH 31.0 (27.0-33.0) pg MCHC 32.4 (31.0-35.0) g/dl RDW 14.3 (11.0-16.0) % Plt Count 221 (160-400) X10*3/uL MPV 10.3 (9.4-12.3) fL Immature Gran % (Auto) 0.4 (0.0-0.4) % Neut % (Auto) 82.0 H (45-73) % Lymph % (Auto) 5.5 L (20-40) % Glenn % (Auto) 11.3 H (2-11) % Eos % (Auto) 0.4 (0-4) % Baso % (Auto) 0.4 (0-2) % Lymph # (Auto) 0.7 L (1.2-4.9) X10*3/uL Glenn # (Auto) 1.4 H (0.1-1.2) X10*3/uL Eos # (Auto) 0.1 (0.0-0.4) X10*3/uL Baso # (Auto) 0.1 (0.0-0.2) X10*3/uL Abs Immat Gran (auto) 0.05 H (0.00-0.03) X10*3/uL Absolute Neuts (auto) 9.7 H (2.0-8.3) x10*3/uL Absolute Nucleated RBC 0.030 H (0.0-0.012) X10*3/uL Nucleated RBC % (auto) 0.3 H (0.0-0.2) /100WBC PT 24.2 H (11.1-13.3) SEC INR 2.0 H (0.9-1.1) Sodium 136 (135-145) mmol/L Potassium 4.1 (3.3-5.1) mmol/L Chloride 105 (96-108) mmol/L Carbon Dioxide 18 L (22-29) mmol/L Anion Gap 17 (12-20) BUN 15 (9-16) mg/dL Creatinine 1.00 (0.5-1.4) mg/dL Estim Creat Clear Calc 55.8 Estimated GFR 54 Random Glucose 124 H (60-115) mg/dL Calcium 9.0 (8.4-10.2) mg/dL Magnesium 2.0 (1.6-2.6) mg/dL Total Bilirubin 1.1 H (0.0-1.0) mg/dL AST 25 (5-31) U/L ALT 28 (0-31) U/L Alkaline Phosphatase 71 (39-117) U/L Troponin I High Sens 4.1 4.7 (<3.5-17.0) ng/L B-Natriuretic Peptide 483 H (<100) pg/mL Total Protein 7.1 (6.5-8.0) g/dL Albumin 3.6 (3.5-5.0) g/dL Independent Interpretation I performed an independent interpretation of an: EKG Interpretation: Atrial fibrillation with paced beats ventricular rate 75 beats per minute no acute ST elevated , no acute ischemia Discharge Plan Discharge Clinical Impression: Acute exacerbation of CHF (congestive heart failure), S/P TAVR (transcatheter aortic valve replacement) Patient Disposition: Admitted As Inpatient Interventions: Admission Worksheet (ED) Last Done: 07/24/23 10:46 Discharge Date/Time: 07/24/23 11:27
--- NOTE | 2023-07-23 16:17 | MHC.EDTECH ---
PATIENT REPEATED TROP DRAWN AND SENT TO LAB .
[2023-07-23 16:36] LABS: Troponin-I High Sensitivity 4.7 ng/L (<3.5-17.0)
[2023-07-23 19:49] VITALS: BP 164/83; PULSE 92; RESP 18; TEMP 36.8; O2SAT 95
[2023-07-23] MEDS: Furosemide 40 MG/4 ML VIAL IVPUSH (21:09)
--- NOTE | 2023-07-23 21:15 | PC.NURSE ---
Pt ca&ox4, no signs of distress. Pt resting quietly in bed, watching tv. Pt medicated per jul. Plan of care ongoing.
--- NOTE | 2023-07-23 21:37 | P.HPHOSP_ITS ---
History of Present Illness Date of Service: 07/23/23 Attending physician on admission: Sanchez Richardson Chief Complaint: SOB, MI, LLE Pt is a 78-year-old female with a PMH significant for?paroxysmal AFib on Eliquis, 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 Pt reports symptoms began approximately one week ago when she began experiencing shortness of breath and dyspnea upon exertion, especially with going upstairs. Also noticed increasing lower leg edema, especially in left leg. Purchased some compression stockings last week but found they no longer fit as edema increased yesterday. Patient also notes has been experiencing orthopnea and chest tightness that has especially become apparent the past few days. Patient has been finding it harder to breathe even at rest, so called PCP this morning who then sent her to the ED for further evaluation. Endorses occasional palpitations. Denies fever, chills, nausea, vomiting, abdominal pain. Denies cough. In the ED pt was tachypneic up to 22 and hypertensive up to 164/83, satting at 90 6% on RA. Labs were significant for WBC of 11.9 and BNP elevated at 483. Initial troponin 4.1 with repeat flat at 4.7. CXR showed likely small left pleural effusion, and prominent pulmonary vascularity but no congestion. EKG demonstrated ventricular pacing possibly some atrial pacing, and suspected underlying rhythm of AFib. Pt was treated with furosemide 40 mg IV. Pt will be admitted to the hospital for treatment further evaluation of new onset CHF. Review of Systems 2 Review of Systems: SOB, MI Lower leg edema Orthopnea Chest tightness, difficulty breathing Denies fever, chills, N/V/D, abd pain PMFSH Medical History Sjogren's syndrome with keratoconjunctivitis sicca Surgical History History of cardiac catheterization Social History Household Members: Spouse Household Members Other:: Daughter Alcohol intake: current Alcohol intake frequency: holidays/special occasions only Patient Tobacco Use Status: Former Tobacco user Quit Date: 1964 Cigarette Packs Per Day: 0.25 Years Smoked: 1 Smoked in Last 30 Days: No e-Cigarette/Vaping Use: Never Used Use of substances other than those prescribed or required for medical reasons: No Advance Directives: No Advance Directives Information Provided: Yes Meds Allergies Allergy/AdvReac Type Severity Reaction Status Date / Time amoxicillin [AMOXICILLIN] Allergy Mild hives, Verified 07/23/23 10:39 anaphylaxis, hives Penicillins [PENICILLINS] Allergy Mild hives Verified 07/23/23 10:39 Sulfa (Sulfonamide Allergy Mild HIVES Verified 07/23/23 10:39 Antibiotics) [SULFA (SULFONAMIDE ANTIBIOTICS)] Active Medications: Current Medications Acetaminophen (Acetaminophen 325 Mg Tablet) 650 mg PO Q6H PRN PRN Reason: Pain, Mild (Pain Scale 1-3) Melatonin (Melatonin 3 Mg Tablet) 6 mg PO BEDTIME PRN PRN Reason: Insomnia Ondansetron HCl (Ondansetron Hcl 4 Mg/2 Ml Vial) 4 mg IVPUSH Q8H PRN PRN Reason: Nausea and Vomiting Sodium Chloride (0.9 % Sodium Chloride Flush 3 Ml Syringe) 3 ml IVFLUSH [facility] Medications Medication Instructions Recorded Confirmed Last Taken Type apixaban 5 mg tablet (Eliquis) 5 mg PO BID 08/24/20 07/23/23 07/23/23 History cholecalciferol (vitamin D3) 25 25 mcg PO DAILY 08/24/20 07/23/23 07/23/23 History mcg (1,000 unit) capsule levothyroxine 100 mcg capsule 100 mcg PO DAILY 08/24/20 07/23/23 07/23/23 History simvastatin 40 mg tablet 40 mg PO BEDTIME 08/24/20 07/23/23 07/23/23 History calcium carbonate 600 mg calcium 600 mg PO BID 11/27/21 07/23/23 07/23/23 History (1,500 mg) tablet ferrous sulfate 325 mg (65 mg 325 mg PO DAILY 11/27/21 07/23/23 07/23/23 History iron) tablet alendronate 70 mg tablet 70 mg PO MOREIRA 11/13/22 07/23/23 07/21/23 History aspirin 81 mg tablet,delayed 81 mg PO DAILY 11/13/22 07/23/23 07/23/23 History release fluorometholone 0.1 % eye 1 drp ophthalmic (eye) Q48H 11/13/22 07/23/23 Unknown History drops,suspension metoprolol tartrate 25 mg tablet 25 mg PO BID 07/23/23 07/23/23 07/23/23 History peg 400-propylene glycol (PF) 0.4 1 drp ophthalmic (eye) 5XD PRN Dry 07/23/23 07/23/23 Unknown History %-0.3 % eye drops in a dropperette Eyes (Systane (PF)) trazodone 150 mg tablet 150 mg PO BEDTIME Insomnia 07/23/23 07/23/23 Unknown History Physical Exam 2 Vital Signs and Narrative: Vital Signs: Last Vital Signs Temp 98.3 F 07/23/23 19:49 Pulse 92 07/23/23 19:49 Resp 18 07/23/23 19:49 BP 164/83 H 07/23/23 19:49 Pulse Ox 95 07/23/23 19:49 O2 Del Method Room Air 07/23/23 19:49 BMI result Body Mass Index 37.4 Constitutional: Alert, in no acute distress. Mental Status: Oriented to person, place and time. Eyes: Pupils are equal, round, and reactive to light. Ear, Nose, and Throat: Oropharynx clear, mucous membranes moist. Ears and nose without deformities. Trachea midline. Respiratory: Clear to auscultation bilaterally. No wheezing, rales, or rhonchi. Cardiovascular: Irregularly irregular rhythm. Gastrointestinal: Abdomen soft, non-tender, non-distended. Normal bowel sounds. Neurologic: Cranial nerves II-XII are grossly intact bilaterally. No focal neurological deficits. Moves all extremities spontaneously. Skin: Warm, dry. Musculoskeletal: No cyanosis or clubbing. Extremities: 1-2+ bilateral pitting edema. Psychiatric: Normal mood and affect. Results Labs 07/23/23 11:12 07/23/23 11:12 Labs: Laboratory Results - last 24 hr 07/23/23 07/23/23 11:12 16:11 MCV 95.7 MCH 31.0 MCHC 32.4 RDW 14.3 Plt Count 221 MPV 10.3 Immature Gran % (Auto) 0.4 Neut % (Auto) 82.0 H Lymph % (Auto) 5.5 L Trinity % (Auto) 11.3 H Eos % (Auto) 0.4 Baso % (Auto) 0.4 Lymph # (Auto) 0.7 L Trinity # (Auto) 1.4 H Eos # (Auto) 0.1 Baso # (Auto) 0.1 Abs Immat Gran (auto) 0.05 H Absolute Neuts (auto) 9.7 H Absolute Nucleated RBC 0.030 H Nucleated RBC % (auto) 0.3 H PT 24.2 H INR 2.0 H Anion Gap 17 Estim Creat Clear Calc 55.8 Estimated GFR 54 Random Glucose 124 H Calcium 9.0 Magnesium 2.0 Total Bilirubin 1.1 H AST 25 ALT 28 Alkaline Phosphatase 71 Troponin I High Sens 4.1 4.7 B-Natriuretic Peptide 483 H Total Protein 7.1 Albumin 3.6 Imaging Radiologist's Impressions: Impressions Chest X-Ray 07/23/23 11:19 IMPRESSION: Suspect small left pleural effusion and/or thickening with underlying atelectasis. Prominent pulmonary vascularity but no congestion suspected. Assessment and Plan (1) New onset of congestive heart failure: Status: Acute Plan Pt is a 78-year-old female with a PMH significant for?paroxysmal AFib on Eliquis, TAVR in 08/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 Pt will be admitted to the hospital for treatment further evaluation of new onset CHF. New onset CHF Patient with increasing SOB, MI, orthopnea, LLE, elevated BNP, and CXR with left pleural effusion and prominent pulmonary vascularity Furosemide 40 mg IV daily Follow lytes, MG, I/O Daily weights, low-salt diet Echocardiogram Cardiology consult Monitor on telemetry Paroxysmal AFib Continue Eliquis, metoprolol HLD/hx of TIA Continue aspirin, statin Hypothyroidism Continue levothyroxine Sjogren's syndrome Continue home meds Full Code Attending:? DVT Prophylaxis: Lovenox Pt will require a hospitalization of at least two nights for treatment of?new onset CHF. Patient will require administration of IV diuretics, close monitoring of labs/electrolytes and cardiac functioning, as well as additional testing and specialist consultation. Quality Stroke Does the patient have a stroke diagnosis?: No VTE Prior VTE?: No VTE Risk Level:: Medical - moderate - high VTE Device Contraindication: Treatment Not Indicated VTE Drug Contraindication: N/A - Med Ordered
--- NOTE | 2023-07-23 21:54 | PHA.MEDREC ---
Pharmacy Consult ? Medication Reconciliation Pharmacy has completed the medication reconciliation. Confirmed medications with patient and through claim history.
[2023-07-23 21:59] VITALS: BP 157/78; PULSE 95; RESP 21; TEMP 37.1; O2SAT 94
[2023-07-23] MEDS: Apixaban 5 MG TABLET PO (22:43)
[2023-07-23] MEDS: Metoprolol Tartrate 25 MG TABLET PO (22:43)
[2023-07-23] MEDS: traZODone HCL 50 MG TABLET 150 MG PO (22:43)
--- NOTE | 2023-07-23 22:48 | PC.NURSE ---
Pt ca&ox4, no signs of distress. Pt requested and given a blanket. Pt medicated per jul. Plan of care ongoing.
[2023-07-24] MEDS: 0.9 % Sodium Chloride Flush 3 ML SYRINGE IVFLUSH ×3 (01:00→14:32)
[2023-07-24 01:21] VITALS: BP 124/53; PULSE 85; RESP 22; TEMP 37.1; O2SAT 96
[2023-07-24 05:28] VITALS: BP 144/66; PULSE 68; RESP 16; TEMP 36.4; O2SAT 95
[2023-07-24] MEDS: Levothyroxine Sodium 100 MCG TABLET PO (06:18)
--- NOTE | 2023-07-24 06:30 | PC.NURSE ---
Pt medicated per jul. Pt requested and given a pillow. Plan of care ongoing.
--- NOTE | 2023-07-24 07:00 | CA_ITS ---
Transthoracic Echocardiogram Patient (Last, First, Middle): Kayla Cheung J Gender: Female Date of : 1945 Age: 78 Procedure Date: 07/24/2023 Procedure Type: Transthoracic Echocardiogram Location: [facility] Height: 160.02 cm Weight: 79.38 kg BSA: 1.83 m2 Heart Rate: bpm BP: 144 / 66 mmHg Sql Data Architect: Referring MD: Sanchez Richardson MD Symptoms: CHF Study Quality: Adequate ECG Rhythm: Atrial Fibrillation Conclusions: - The left ventricular systolic function is low normal. The visually estimated ejection fraction is between 50-55%. - A bioprosthetic aortic valve is present. The prosthetic aortic valve appears to be functioning normally. Mild para-valvular regurgitation. - There is severe mitral annular calcification. There is trace mitral valve regurgitation. Suspect some degree of mitral stenosis but likely not severe. Findings Left Ventricle Normal left ventricular cavity size. There is mildly increased left ventricular wall thickness. The left ventricular systolic function is low normal. The visually estimated ejection fraction is between 50-55%. There is no evidence of regional wall motion abnormalities. Diastolic function is indeterminate on the basis of available data. Right Ventricle Mildly increased right ventricular cavity size. There is normal right ventricular systolic function. There is a pacemaker wire seen in the right ventricle. Atria Moderate biatrial enlargement. Aortic Valve A bioprosthetic aortic valve is present. The prosthetic aortic valve appears to be functioning normally. Mild para-valvular regurgitation. Mitral Valve There is severe mitral annular calcification. There is trace mitral valve regurgitation. Suspect some degree of mitral stenosis but likely not severe. Pulmonic Valve The pulmonic valve is likely normal. Tricuspid Valve There is mild tricuspid valve regurgitation. There is no evidence of pulmonary hypertension. Great Vessels The asc aorta is normal in size. Venous The inferior vena cava is normal in size and collapses greater than 50% with inspiration. Pericardium/Pleural There is no evidence of pericardial effusion. Prior Study Comparison No prior study available for comparison. Measurements 2D Linear Measurements IVSd: 1.21 0.6-0.9/0.6-1.0 cm LVIDd: 4.22 3.9-5.3/4.2-5.9 cm LVIDd Index: 2.31 2.4-3.2/2.2-3.1 cm/m2 LVIDs: 3.14 2.0-3.6 cm LVPWd: 1.21 0.7-1.1 cm Ao Root: 3.10 2.1-3.5 cm LA Diam: 4.60 2.7-3.8/3.0-4.0 cm LAIDs Index: 2.51 1.5-2.3 cm/m2 LV Mass: 226.31 67-162/88-224 g LV Mass Index: 123.67 43-95/49-115 g/m2 LVOT Diam: 1.90 3.0+(-)1.3 cm 2D Systolic Function EF 4C: 49.00 >55% EF 2C: 47.40 >55% EF BiP: 45.90 >55% Mitral Valve MV VTI: 0.45 MV Pk Nikunj: 1.67 MV Mn Nikunj: 0.87 MV Pk Grad: 11.00 MV Mn Grad: 4.00 MV Pk E: 1.46 MV Decel Time: 310.00 E'Lateral: 5.11 E'Medial: 4.46 E/E' Med: 32.70 E/E' Lat: 28.60 PHT: 91.00 MVA PHT: 2.42 MVA Continuity: 1.04 Decel [place]: 4.72 Aortic Valve AoV Pk Nikunj: 1.65 AoV Mn Nikunj: 0.99 AoV VTI: 0.40 AoV Pk Grad: 11.00 Aov Mn Grad: 5.00 CHARLEY Cont.VTI: 1.17 LVOT LVOT Pk Nikunj: 0.78 LVOT Mn Nikunj: 0.48 LVOT VTI: 0.16 LVOT Pk Grad: 2.00 LVOT Mn Grad: 1.00 LVOT Diam: 1.90 LVOT Area: 2.84 Diastolic Function MV Pk E: 1.46 E'Medial: 4.46 E/E' Med: 32.70 E' Laterial: 5.11 E/E' Lat: 28.60 Right Ventricle TAPSE (mm): 22.20 TVS' Nikunj: 9.03 Tricuspid Valve TR Pk Nikunj: 2.88 TR Pk Grad: 33.00 Great Vessels Aorta Ao Root-2D: 3.10 2.0-3.7 cm Ao Asc: 2.70 2.1-3.4 cm Pulmonary Valve PV Pk Nikunj: 0.80 Peak PV Grad: 3.00 Updated in Other Vendor System with Status of Final Enrique Batista MD electronically signed on 07/24/2023 4:07:23 PM with status of Final
[2023-07-24 07:01] LABS: MANUAL DIFF FLAG NO
[2023-07-24 07:07] LABS: Basophils Absolute Auto 0.1 X10*3/uL (0.0-0.2); Basophils Percent Auto 0.6 % (0-2); Eosinophils Absolute Auto 0.2 X10*3/uL (0.0-0.4); Eosinophils Percent Auto 2.4 % (0-4); Hematocrit 33.9 % (37.0-47.0); Hemoglobin 11.2 g/dl (12.0-16.0); Imm Gran Abs Auto 0.03 X10*3/uL (0.00-0.03); Imm Gran Pct Auto 0.3 % (0.0-0.4); Lymphocytes Percent Auto 11.4 % (20-40); Mean Corpuscular Volume 93.9 fL (80.0-98.0); Mean Platelet Volume 11.2 fL (9.4-12.3); Monocytes Absolute Auto 1.4 X10*3/uL (0.1-1.2); Monocytes Percent Auto 15.2 % (2-11); NRBC Pct Auto 0.2 /100WBC (0.0-0.2); Neutrophils Absolute Auto 6.2 x10*3/uL (2.0-8.3); Neutrophils Percent Auto 70.1 % (45-73); Platelet Count 227 X10*3/uL (160-400); Red Blood Count 3.61 X10*6/uL (4.20-5.50); Red Cell Distribution Width 14.2 % (11.0-16.0); White Blood Count 8.9 X10*3/uL (4.8-10.8)
[2023-07-24] MEDS: Aspirin Enteric Coated 81 MG TABLET.DR PO (07:14)
[2023-07-24] MEDS: Cholecalciferol (Vitamin D3) 25 MCG TABLET PO (07:14)
[2023-07-24] MEDS: Ferrous Sulfate 324 MG TABLET.DR PO (07:14)
[2023-07-24] MEDS: Apixaban 5 MG TABLET PO ×2 (07:14→20:12)
[2023-07-24] MEDS: Metoprolol Tartrate 25 MG TABLET PO ×2 (07:14→20:12)
[2023-07-24] MEDS: Furosemide 40 MG/4 ML VIAL IVPUSH (07:15)
--- NOTE | 2023-07-24 07:21 | PC.NURSE ---
Alert and oriented, medicated per mar, denies abbey or discomfort. Eating breakfast at this time
[2023-07-24 07:31] LABS: Anion Gap 14 (12-20); Blood Urea Nitrogen 12 mg/dL (9-16); Calcium 9.2 mg/dL (8.4-10.2); Carbon Dioxide 25 mmol/L (22-29); Chloride 103 mmol/L (96-108); Creatinine Clr Calc Pharmacy 64.1; Estimated Glomerular Filt Rate > 60; Glucose Random 98 mg/dL (60-115); Potassium 3.8 mmol/L (3.3-5.1); Sodium 138 mmol/L (135-145)
--- NOTE | 2023-07-24 09:57 | P.CONCA_ITS ---
History of Present Illness History of Present Illness Date of Service: 07/24/23 Chief complaint: Dyspnea Narrative: This is a cardiology consultation regarding congestive heart failure. Patient has history of transcatheter aortic valve replacement from August 2022. She also has a history of paroxysmal atrial fibrillation on Eliquis. History of non- Hodgkin's lymphoma in the . Multiple other comorbidities. Presenting complaints of increasing shortness of breath. This has been going on for the last few days but she thinks it could have been longer but not as prominent until now. Also some leg swelling but more on the left side. She also felt some tightness in the chest. Then seen in the ER and thought to have possibly congestive heart failure and subsequently admitted. She states she is feeling much better since the time of arrival. Until a couple months ago, she states she was actually doing fine and did not really have any major breathing issues. She is seen at [facility]. Review of Systems 2 Review of Systems: Yes all other systems are reviewed and are negative Constitutional: Constitutional: Reports as per HPI and Reports no additional constitutional complaints Eyes: Eyes: Reports as per HPI and Denies no additional eye complaints ENT: Denies system reviewed and no additional complaints, except as documented and Reports as per HPI Cardiovascular: Cardiovascular: Reports as per HPI, Reports no additional cardiovascular complaints, Denies acrocyanosis, Denies cool extremities, Denies chest pain, Denies leg edema, Denies lightheadedness, Denies palpitations and Reports dyspnea Respiratory: Respiratory: Reports as per HPI, Denies no additional respiratory complaints and Reports dyspnea Gastrointestinal: Gastrointestinal: Reports as per HPI and Denies no additional gastrointestinal complaints Genitourinary: Genitourinary: Reports as per HPI Musculoskeletal: Musculoskeletal: Reports no additional musculoskeletal complaints and Reports as per HPI Integumentary/Breasts: Skin/Breast: Reports system reviewed and no additional complaints, except as docu Neurologic: Reports system reviewed and no additional complaints, except as documented and Reports as per HPI Psychiatric: Psychiatric: Reports no additional psychiatric complaints and Reports as per HPI Endocrine: Endocrine: Reports no additional endocrine complaints, Reports as per HPI and Denies palpitations Hematologic/Lymphatic: Hematologic/Lymphatic: Reports no additional hematologic/lymphatic complaints and Reports as per HPI Allergic/Immunologic: Allergic/Immunologic: Reports no additional allergic/immunologic complaints and Reports as per HPI [facility] Past Medical History Medical History Sjogren's syndrome with keratoconjunctivitis sicca Family History Pertinent family history: No pertinent family history Surgical History Surgical History History of cardiac catheterization Social History Social History Household Members: Spouse Household Members Other:: Daughter Alcohol intake: current Alcohol intake frequency: holidays/special occasions only Patient Tobacco Use Status: Former Tobacco user Quit Date: 1964 Cigarette Packs Per Day: 0.25 Years Smoked: 1 Smoked in Last 30 Days: No e-Cigarette/Vaping Use: Never Used Use of substances other than those prescribed or required for medical reasons: No Advance Directives: No Advance Directives Information Provided: Yes Meds Allergies Allergy/AdvReac Type Severity Reaction Status Date / Time amoxicillin [AMOXICILLIN] Allergy Mild hives, Verified 07/23/23 10:39 anaphylaxis, hives Penicillins [PENICILLINS] Allergy Mild hives Verified 07/23/23 10:39 Sulfa (Sulfonamide Allergy Mild HIVES Verified 07/23/23 10:39 Antibiotics) [SULFA (SULFONAMIDE ANTIBIOTICS)] Active Medications: Current Medications Acetaminophen (Acetaminophen 325 Mg Tablet) 650 mg PO Q6H PRN PRN Reason: Pain, Mild (Pain Scale 1-3) Apixaban (Apixaban 5 Mg Tablet) 5 mg PO BID [facility] Last Admin: 07/24/23 07:14 Dose: 5 mg Aspirin (Aspirin Enteric Coated 81 Mg Tablet.) 81 mg PO DAILY [facility] Last Admin: 07/24/23 07:14 Dose: 81 mg Atorvastatin Calcium (Atorvastatin Calcium 20 Mg Tablet) 20 mg PO BEDTIME [facility] Calcium Carbonate (Calcium Carbonate 500 Mg Tablet) 500 mg PO BID [facility] Last Admin: 07/24/23 07:14 Dose: 500 mg Ferrous Sulfate (Ferrous Sulfate 324 Mg Tablet.) 324 mg PO DAILY [facility] Last Admin: 07/24/23 07:14 Dose: 324 mg Furosemide (Furosemide 40 Mg/4 Ml Vial) 40 mg IVPUSH DAILY [facility]; Protocol Last Admin: 07/24/23 07:15 Dose: 40 mg Levothyroxine Sodium (Levothyroxine Sodium 100 Mcg Tablet) 100 mcg PO DAILY@0600 [facility] Last Admin: 07/24/23 06:18 Dose: 100 mcg Melatonin (Melatonin 3 Mg Tablet) 6 mg PO BEDTIME PRN PRN Reason: Insomnia Metoprolol Tartrate (Metoprolol Tartrate 25 Mg Tablet) 25 mg PO BID [facility]; Protocol Last Admin: 07/24/23 07:14 Dose: 25 mg Non-Formulary Medication (Fluorometholone) 1 drop EYE-BOTH Q48H [facility] Ondansetron HCl (Ondansetron Hcl 4 Mg/2 Ml Vial) 4 mg IVPUSH Q8H PRN PRN Reason: Nausea and Vomiting Polyethyl Glycol/Propylene Glycol (Propylene Glycol/Peg 400 Gel Eye Drops 10ml) 1 drop EYE-BOTH 5XD PRN PRN Reason: Dry Eyes Sodium Chloride (0.9 % Sodium Chloride Flush 3 Ml Syringe) 3 ml IVFLUSH QSHIFT [facility] Last Admin: 07/24/23 07:22 Dose: 3 ml Trazodone HCl (Trazodone Hcl 50 Mg Tablet) 150 mg PO BEDTIME [facility] Last Admin: 07/23/23 22:43 Dose: 150 mg Vitamin D (Cholecalciferol (Vitamin D3) 25 Mcg Tablet) 25 mcg PO DAILY [facility] Last Admin: 07/24/23 07:14 Dose: 25 mcg Home Medications Medication Instructions Recorded Confirmed Last Taken Type apixaban 5 mg tablet (Eliquis) 5 mg PO BID 08/24/20 07/23/23 07/23/23 History cholecalciferol (vitamin D3) 25 25 mcg PO DAILY 08/24/20 07/23/23 07/23/23 History mcg (1,000 unit) capsule levothyroxine 100 mcg capsule 100 mcg PO DAILY 08/24/20 07/23/23 07/23/23 History simvastatin 40 mg tablet 40 mg PO BEDTIME 08/24/20 07/23/23 07/23/23 History calcium carbonate 600 mg calcium 600 mg PO BID 11/27/21 07/23/23 07/23/23 History (1,500 mg) tablet ferrous sulfate 325 mg (65 mg 325 mg PO DAILY 11/27/21 07/23/23 07/23/23 History iron) tablet alendronate 70 mg tablet 70 mg PO MOREIRA 11/13/22 07/23/23 07/21/23 History aspirin 81 mg tablet,delayed 81 mg PO DAILY 07/03/2807/23/23 07/23/23 History release fluorometholone 0.1 % eye 1 drp ophthalmic (eye) Q48H 11/13/22 07/23/23 Unknown History drops,suspension metoprolol tartrate 25 mg tablet 25 mg PO BID 07/23/23 07/23/23 07/23/23 History peg 400-propylene glycol (PF) 0.4 1 drp ophthalmic (eye) 5XD PRN Dry 07/23/23 07/23/23 Unknown History %-0.3 % eye drops in a dropperette Eyes (Systane (PF)) trazodone 150 mg tablet 150 mg PO BEDTIME Insomnia 07/23/23 07/23/23 Unknown History Physical Exam 2 Vital Signs: Vital Signs: Last Vital Signs Temp 97.6 F 07/24/23 05:28 Pulse 68 07/24/23 05:28 Resp 16 07/24/23 05:28 BP 144/66 H 07/24/23 05:28 Pulse Ox 95 07/24/23 05:28 O2 Del Method Room Air 07/24/23 05:28 BMI result Body Mass Index 37.4 Const: General: comfortable and no acute distress O rientation/consciousness: patient oriented x3 HEENT: Other: Unremarkable Head: Yes normal to inspection Neck: Neck: Yes normal visual inspection Chest: Chest palpation & inspection: normal inspection of the chest Resp: Auscultation: clear to auscultation bilaterally Cardio: Palpation: normal PMI Heart sounds: S1 normal heart sound present, S2 normal heart sound present, no gallops, Murmur heart sound present diastolic III/ and at the right sternal border and systolic II/ and at the right sternal border and no rubs GI: Palpation (GI): Soft to palpation Back/Spine/Pelvis: Other: unremarkable Skin: General skin exam: no rashes or lesions noted Neuro: General: patient oriented x3 Extrem: General: Yes normal to inspection Psych: Mental Status: mental status grossly normal Objective Labs and Meds 07/24/23 05:58 07/24/23 05:58 Lab results: Laboratory Results - last 24 hr 07/23/23 07/23/23 07/24/23 11:12 16:11 05:58 WBC 11.9 H 8.9 RBC 3.71 L 3.61 L Hgb 11.5 L 11.2 L Hct 35.5 L 33.9 L MCV 95.7 93.9 MCH 31.0 31.0 MCHC 32.4 33.0 RDW 14.3 14.2 Plt Count 221 227 MPV 10.3 11.2 Immature Gran % (Auto) 0.4 0.3 Neut % (Auto) 82.0 H 70.1 Lymph % (Auto) 5.5 L 11.4 L [place] % (Auto) 11.3 H 15.2 H Eos % (Auto) 0.4 2.4 Baso % (Auto) 0.4 0.6 Lymph # (Auto) 0.7 L 1.0 L [place] # (Auto) 1.4 H 1.4 H Eos # (Auto) 0.1 0.2 Baso # (Auto) 0.1 0.1 Abs Immat Gran (auto) 0.05 H 0.03 Absolute Neuts (auto) 9.7 H 6.2 Absolute Nucleated RBC 0.030 H 0.020 H Nucleated RBC % (auto) 0.3 H 0.2 PT 24.2 H INR 2.0 H Sodium 136 138 Potassium 4.1 3.8 Chloride 105 103 Carbon Dioxide 18 L 25 Anion Gap 17 14 BUN 15 12 Creatinine 1.00 0.87 Estim Creat Clear Calc 55.8 64.1 Estimated GFR 54 > 60 Random Glucose 124 H 98 Calcium 9.0 9.2 Magnesium 2.0 Total Bilirubin 1.1 H AST 25 ALT 28 Alkaline Phosphatase 71 Troponin I High Sens 4.1 4.7 B-Natriuretic Peptide 483 H Total Protein 7.1 Albumin 3.6 ECG Interpretation: EKG with ventricular paced rhythm at 75/Min. Underlying rhythm could be atrial fibrillation. Imaging Radiologist's impression: Impressions Chest X-Ray 07/23/23 11:19 IMPRESSION: Suspect small left pleural effusion and/or thickening with underlying atelectasis. Prominent pulmonary vascularity but no congestion suspected. Assessment and Plan (1) Acute exacerbation of CHF (congestive heart failure): Status: Acute (2) S/P TAVR (transcatheter aortic valve replacement): Status: Acute (3) PAF (paroxysmal atrial fibrillation): Status: Acute Plan Last echocardiogram from [id number] 65-70%. Transcatheter aortic valve with trivial paravalvular leak. Calcific mitral stenosis. Currently, high sensitivity troponins were unremarkable. Cardiac BNP 483. Chest x-ray reported to have a small left pleural effusion/underlying atelectasis. Prominent pulmonary vascularity. Clinically, no profound volume overload. Empiric diuretics for now. We will get another echocardiogram. Rhythm is unclear and could be underlying atrial fibrillation. Will need to get pacemaker interrogated. Will follow-up with you. Procedures Date of Service Date of Service: 07/24/23
--- NOTE | 2023-07-24 11:03 | PC.NURSE ---
Patient receiving bedside echo at this time.
[2023-07-24 11:50] VITALS: BP 119/73; PULSE 83; RESP 20; TEMP 36.7; O2SAT 97
--- NOTE | 2023-07-24 13:26 | MHC.CM.PN ---
CM met with Patient at bedside and addressed IMM with her (original was given to Patient and a copy has been placed on the chart). CM assisted Patient with the completion of a HCP; she named her /Willie as her Primary Agent and her Daughter/Tianna as her Alternate Agent. 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 PCP is Dr. Demetrius Cote. will transport to home at dc.
--- NOTE | 2023-07-24 13:35 | HO.PM.IMPN ---
Subjective Subjective Date of Service: 07/24/23 Interval History: Being followed for acute CHF. Patient feeling better, shortness of breath has resolved, leg edema is improving, denies headache, no lightheadedness, no fevers, no chills, no cough, no acute issues since admission. Review of Systems All other system reviewed and negative. Physical Exam Vital Signs: Vital Signs: Last Vital Signs Temp 98.1 F 07/24/23 11:50 Pulse 83 07/24/23 11:50 Resp 20 07/24/23 11:50 BP 119/73 07/24/23 11:50 Pulse Ox 97 07/24/23 11:50 O2 Del Method Room Air 07/24/23 11:50 BMI result Body Mass Index 37.4 Const: Other: General awake alert x3, in no acute distress. Neck supple, no JVD. CVS regular rate rhythm, systolic murmur Respiratory lungs clear to auscultation, no respiratory distress, no wheeze, no rales Gastrointestinal abdomen soft, non tender, bowel sounds audible, no guarding , no rigidity. Extremities mild LE edema. Neuro non focal Skin no rash Psych appropriate affect Objective Data Active Medications Acetaminophen (Acetaminophen 325 Mg Tablet) 650 mg PO Q6H PRN PRN Reason: Pain, Mild (Pain Scale 1-3) Apixaban (Apixaban 5 Mg Tablet) 5 mg PO BID [facility] Last Admin: 07/24/23 07:14 Dose: 5 mg Documented By: MONY Aspirin (Aspirin Enteric Coated 81 Mg Tablet.) 81 mg PO DAILY [facility] Last Admin: 07/24/23 07:14 Dose: 81 mg Documented By: MONY Atorvastatin Calcium (Atorvastatin Calcium 20 Mg Tablet) 20 mg PO BEDTIME [facility] Calcium Carbonate (Calcium Carbonate 500 Mg Tablet) 500 mg PO BID [facility] Last Admin: 07/24/23 07:14 Dose: 500 mg Documented By: MONY Ferrous Sulfate (Ferrous Sulfate 324 Mg Tablet.) 324 mg PO DAILY [facility] Last Admin: 07/24/23 07:14 Dose: 324 mg Documented By: MONY Furosemide (Furosemide 40 Mg/4 Ml Vial) 40 mg IVPUSH DAILY [facility]; Protocol Last Admin: 07/24/23 07:15 Dose: 40 mg Documented By: MONY Levothyroxine Sodium (Levothyroxine Sodium 100 Mcg Tablet) 100 mcg PO DAILY@0600 [facility] Last Admin: 07/24/23 06:18 Dose: 100 mcg Documented By: LILLI Melatonin (Melatonin 3 Mg Tablet) 6 mg PO BEDTIME PRN PRN Reason: Insomnia Metoprolol Tartrate (Metoprolol Tartrate 25 Mg Tablet) 25 mg PO BID [facility]; Protocol Last Admin: 07/24/23 07:14 Dose: 25 mg Documented By: MONY Non-Formulary Medication (Fluorometholone) 1 drop EYE-BOTH Q48H [facility] Ondansetron HCl (Ondansetron Hcl 4 Mg/2 Ml Vial) 4 mg IVPUSH Q8H PRN PRN Reason: Nausea and Vomiting Polyethyl Glycol/Propylene Glycol (Propylene Glycol/Peg 400 Gel Eye Drops 10ml) 1 drop EYE-BOTH 5XD PRN PRN Reason: Dry Eyes Sodium Chloride (0.9 % Sodium Chloride Flush 3 Ml Syringe) 3 ml IVFLUSH QSHIFT [facility] Last Admin: 07/24/23 07:22 Dose: 3 ml Documented By: MONY Trazodone HCl (Trazodone Hcl 50 Mg Tablet) 150 mg PO BEDTIME [facility] Last Admin: 07/23/23 22:43 Dose: 150 mg Documented By: LILLI Vitamin D (Cholecalciferol (Vitamin D3) 25 Mcg Tablet) 25 mcg PO DAILY [facility] Last Admin: 07/24/23 07:14 Dose: 25 mcg Documented By: MONY Labs 07/24/23 05:58 07/24/23 05:58 Labs: Laboratory Results - last 24 hr 07/23/23 07/24/23 16:11 05:58 MCV 93.9 MCH 31.0 MCHC 33.0 RDW 14.2 Plt Count 227 MPV 11.2 Immature Gran % (Auto) 0.3 Neut % (Auto) 70.1 Lymph % (Auto) 11.4 L [place] % (Auto) 15.2 H Eos % (Auto) 2.4 Baso % (Auto) 0.6 Lymph # (Auto) 1.0 L [place] # (Auto) 1.4 H Eos # (Auto) 0.2 Baso # (Auto) 0.1 Abs Immat Gran (auto) 0.03 Absolute Neuts (auto) 6.2 Absolute Nucleated RBC 0.020 H Nucleated RBC % (auto) 0.2 Anion Gap 14 Estim Creat Clear Calc 64.1 Estimated GFR > 60 Random Glucose 98 Calcium 9.2 Troponin I High Sens 4.7 Assessment and Plan (1) PAF (paroxysmal atrial fibrillation): Status: Acute (2) New onset of congestive heart failure: Status: Acute Plan 78-year-old female with a PMH significant for?paroxysmal AFib on Eliquis, TAVR in 08/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 Pt admitted to the hospital for treatment further evaluation of new onset CHF. New onset CHF Feeling better, shortness and breath and orthopnea resolved, persistent mild left lower extremity swelling CXR with left pleural effusion and prominent pulmonary vascularity, BNP 483 on iv Furosemide 40 mg , will transition to by mouth Lasix stable electrolytes and renal function Daily weights, low-salt diet Last echo from [facility] 2022 showed EF 65-70%, trivial paravalvular leak and calcific mitral stenosis Repeat Echocardiogram pending Seen by Dr. Batista he recommend to follow echocardiogram, and will undergo pacemaker interrogation Paroxysmal AFib Continue Eliquis, metoprolol HLD/hx of TIA Continue aspirin, statin Hypothyroidism Continue levothyroxine, recent TSH May 2023 3.22 Sjogren's syndrome Continue home meds Class 2 obesity recommended low-calorie diet/weight loss strategies discussed. Full Code DVT Prophylaxis: Lovenox Pt will require continued inpatient hospitalization for treatment of new onset congestive heart failure requiring IV diuretics and close renal and electrolyte monitoring, waiting for cardiac testing and interrogation. Quality Stroke Does the patient have a stroke diagnosis?: No VTE Prior VTE?: No VTE Risk Level:: Medical - moderate - high VTE Device Contraindication: Treatment Not Indicated VTE Drug Contraindication: N/A - Med Ordered
[2023-07-24 16:00] VITALS: BP 135/66; PULSE 88; RESP 16; TEMP 36.8; O2SAT 95
[2023-07-24 20:00] VITALS: BP 129/71; PULSE 90; RESP 18; TEMP 36.6; O2SAT 97
[2023-07-24] MEDS: Atorvastatin Calcium 20 MG TABLET PO (20:11)
[2023-07-24] MEDS: traZODone HCL 50 MG TABLET 150 MG PO (20:12)
[2023-07-24 23:45] VITALS: BP 135/64; PULSE 76; RESP 18; TEMP 36.6; O2SAT 93
[2023-07-25] MEDS: 0.9 % Sodium Chloride Flush 3 ML SYRINGE IVFLUSH ×3 (00:12→15:21)
[2023-07-25 02:59] VITALS: BP 122/64; PULSE 97; RESP 18; TEMP 36.6; O2SAT 97
[2023-07-25] MEDS: Levothyroxine Sodium 100 MCG TABLET PO (05:57)
[2023-07-25 06:32] VITALS: BMI 29.5
[2023-07-25 07:05] VITALS: BP 151/65; PULSE 81; RESP 20; TEMP 36.4; O2SAT 96
[2023-07-25] MEDS: Furosemide 40 MG/4 ML VIAL IVPUSH (07:51)
[2023-07-25] MEDS: Cholecalciferol (Vitamin D3) 25 MCG TABLET PO (07:52)
[2023-07-25] MEDS: Aspirin Enteric Coated 81 MG TABLET.DR PO (07:52)
[2023-07-25] MEDS: Metoprolol Tartrate 25 MG TABLET PO ×2 (07:52→20:21)
[2023-07-25] MEDS: Apixaban 5 MG TABLET PO ×2 (07:52→20:21)
[2023-07-25] MEDS: Ferrous Sulfate 324 MG TABLET.DR PO (07:52)
--- NOTE | 2023-07-25 09:58 | PM.PNCARD ---
Subjective Subjective Date of Service: 07/25/23 Interval history: Patient states she is feeling much better. Shortness of breath is improved. No other cardiac complaints at this time. Review of Systems Review of Systems Yes all other systems are reviewed and are negative Constitutional: Reports as per HPI and Reports no additional constitutional complaints Eyes: Reports as per HPI and Denies no additional eye complaints Denies system reviewed and no additional complaints, except as documented and Reports as per HPI Cardiovascular: Reports as per HPI, Reports no additional cardiovascular complaints, Denies acrocyanosis, Denies cool extremities, Denies chest pain, Denies leg edema, Denies lightheadedness, Denies palpitations and Denies dyspnea Respiratory: Reports as per HPI, Denies no additional respiratory complaints and Denies dyspnea Gastrointestinal: Reports as per HPI and Denies no additional gastrointestinal complaints Genitourinary: Reports as per HPI Musculoskeletal: Reports no additional musculoskeletal complaints and Reports as per HPI Skin/Breast: Reports system reviewed and no additional complaints, except as docu Reports system reviewed and no additional complaints, except as documented and Reports as per HPI Psychiatric: Reports no additional psychiatric complaints and Reports as per HPI Endocrine: Reports no additional endocrine complaints, Reports as per HPI and Denies palpitations Hematologic/Lymphatic: Reports no additional hematologic/lymphatic complaints and Reports as per HPI Allergic/Immunologic: Reports no additional allergic/immunologic complaints and Reports as per HPI Physical Exam Vital Signs: Last Vital Signs Temp 97.6 F 07/25/23 07:05 Pulse 81 07/25/23 07:05 Resp 20 07/25/23 07:05 BP 151/65 H 07/25/23 07:05 Pulse Ox 96 07/25/23 07:05 O2 Del Method Room Air 07/25/23 07:05 BMI result Body Mass Index 29.5 Const General: comfortable and no acute distress Orientation/consciousness: patient oriented x3 HEENT Other: Unremarkable Head: Yes normal to inspection Neck Neck: Yes normal visual inspection Chest Chest palpation & inspection: normal inspection of the chest Resp Auscultation: clear to auscultation bilaterally Cardio Palpation: normal PMI Heart sounds: S1 normal heart sound present, S2 normal heart sound present, no gallops, Murmur heart sound present diastolic II/ and at the right sternal border and systolic II/ and at the right sternal border and no rubs GI Palpation (GI): Soft to palpation Back/Spine/Pelvis Other: unremarkable Skin General skin exam: no rashes or lesions noted Neuro General: patient oriented x3 Extrem General: Yes normal to inspection Psych Mental Status: mental status grossly normal Objective Labs and Meds 07/24/23 05:58 07/24/23 05:58 Progress Note: A&P Assessment and plan (1) Acute exacerbation of CHF (congestive heart failure): Status: Acute (2) S/P TAVR (transcatheter aortic valve replacement): Status: Acute (3) PAF (paroxysmal atrial fibrillation): Status: Acute Plan In the echocardiogram is today, LVEF 50-55%. Bioprosthetic aortic valve with mild paravalvular regurgitation. Severe mitral annular calcification with some stenosis. Currently, high sensitivity troponins were unremarkable. Cardiac BNP 483. Chest x-ray reported to have a small left pleural effusion/underlying atelectasis. Prominent pulmonary vascularity. Pacemaker was interrogated yesterday. Underlying rhythm is atrial fibrillation with biventricular pacing. Atrial pacing 28% ventricular pacing 56%. Atrial fibrillation has been noted since June with increasing OptiVol. One episode of atrial fibrillation rapid rate. Ventricular pacing less than 90% due to atrial fibrillation. Based on this, her congestive heart failure could have been precipitated because of recent atrial fibrillation. Discussed with patient about this. Suggest that she undergoes cardioversion. She is taken uninterrupted anticoagulation for the last several weeks. Scheduled for tomorrow. NPO past midnight. Time Spent With Patient Time: Total time managing care of this patient today ____ minutes. Progress Note: Quality Stroke Does the patient have a stroke diagnosis?: No Procedures Date of Service Date of Service: 07/25/23
[2023-07-25 11:02] VITALS: BP 110/67; PULSE 78; RESP 20; TEMP 37; O2SAT 97
[2023-07-25] MEDS: Amiodarone HCL 200 MG TABLET 400 MG PO ×2 (11:47→20:21)
--- NOTE | 2023-07-25 12:42 | HO.PM.IMPN ---
Subjective Subjective Date of Service: 07/25/23 Interval History: Feeling significantly better denies shortness of breath, slept well no orthopnea, no PND, tolerating diet with no nausea vomiting, no abdominal pain, no acute issues overnight. Review of Systems All other system reviewed and negative. Physical Exam Vital Signs: Vital Signs: Last Vital Signs Temp 98.6 F 07/25/23 11:02 Pulse 78 07/25/23 11:02 Resp 20 07/25/23 11:02 BP 110/67 07/25/23 11:02 Pulse Ox 97 07/25/23 11:02 O2 Del Method Room Air 07/25/23 11:02 BMI result Body Mass Index 29.5 Const: Other: General awake alert x3, in no acute distress. Neck supple, no JVD. CVS regular rate rhythm, systolic murmur Respiratory lungs clear to auscultation, no respiratory distress, no wheeze, no rales Gastrointestinal abdomen soft, non tender, bowel sounds audible, no guarding , no rigidity. Extremities LE edema improved. Neuro non focal Skin no rash Psych appropriate affect Objective Data Active Medications Acetaminophen (Acetaminophen 325 Mg Tablet) 650 mg PO Q6H PRN PRN Reason: Pain, Mild (Pain Scale 1-3) Amiodarone HCl (Amiodarone Hcl 200 Mg Tablet) 400 mg PO BID [facility] Last Admin: 07/25/23 11:47 Dose: 400 mg Documented By: BERTA Apixaban (Apixaban 5 Mg Tablet) 5 mg PO BID [facility] Last Admin: 07/25/23 07:52 Dose: 5 mg Documented By: BERTA Aspirin (Aspirin Enteric Coated 81 Mg Tablet.) 81 mg PO DAILY [facility] Last Admin: 07/25/23 07:52 Dose: 81 mg Documented By: BERTA Atorvastatin Calcium (Atorvastatin Calcium 20 Mg Tablet) 20 mg PO BEDTIME [facility] Last Admin: 07/24/23 20:11 Dose: 20 mg Documented By: HOLLI Calcium Carbonate (Calcium Carbonate 500 Mg Tablet) 500 mg PO BID [facility] Last Admin: 07/25/23 07:52 Dose: 500 mg Documented By: BERTA Ferrous Sulfate (Ferrous Sulfate 324 Mg Tablet.) 324 mg PO DAILY [facility] Last Admin: 07/25/23 07:52 Dose: 324 mg Documented By: BERTA Furosemide (Furosemide 40 Mg/4 Ml Vial) 40 mg IVPUSH DAILY [facility]; Protocol Last Admin: 07/25/23 07:51 Dose: 40 mg Documented By: BERTA Levothyroxine Sodium (Levothyroxine Sodium 100 Mcg Tablet) 100 mcg PO DAILY@0600 [facility] Last Admin: 07/25/23 05:57 Dose: 100 mcg Documented By: TANIA Melatonin (Melatonin 3 Mg Tablet) 6 mg PO BEDTIME PRN PRN Reason: Insomnia Metoprolol Tartrate (Metoprolol Tartrate 25 Mg Tablet) 25 mg PO BID [facility]; Protocol Last Admin: 07/25/23 07:52 Dose: 25 mg Documented By: BERTA Non-Formulary Medication (Fluorometholone) 1 drop EYE-BOTH Q48H [facility] Ondansetron HCl (Ondansetron Hcl 4 Mg/2 Ml Vial) 4 mg IVPUSH Q8H PRN PRN Reason: Nausea and Vomiting Polyethyl Glycol/Propylene Glycol (Propylene Glycol/Peg 400 Gel Eye Drops 10ml) 1 drop EYE-BOTH 5XD PRN PRN Reason: Dry Eyes Sodium Chloride (0.9 % Sodium Chloride Flush 3 Ml Syringe) 3 ml IVFLUSH QSHIFT [facility] Last Admin: 07/25/23 07:50 Dose: 3 ml Documented By: BERTA Trazodone HCl (Trazodone Hcl 50 Mg Tablet) 150 mg PO BEDTIME [facility] Last Admin: 07/24/23 20:12 Dose: 150 mg Documented By: HOLLI Vitamin D (Cholecalciferol (Vitamin D3) 25 Mcg Tablet) 25 mcg PO DAILY [facility] Last Admin: 07/25/23 07:52 Dose: 25 mcg Documented By: BERTA Labs 07/24/23 05:58 07/24/23 05:58 Assessment and Plan (1) PAF (paroxysmal atrial fibrillation): Status: Acute (2) New onset of congestive heart failure: Status: Acute Plan 78-year-old female with a PMH significant for?paroxysmal AFib on Eliquis, TAVR in 08/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 Pt admitted to the hospital for treatment further evaluation of new onset CHF. New onset CHF with preserved EF CHF likely due to atrial fibrillation Feeling better, shortness and breath and orthopnea resolved CXR on admission showed left pleural effusion and prominent pulmonary vascularity, BNP 483 on iv Furosemide 40 mg , will DC IV Lasix monitor volume status Follow BNP, electrolytes and renal function Daily weights, low-salt diet Last echo from [facility] 2022 showed EF 65-70%, trivial paravalvular leak and calcific mitral stenosis Repeat Echocardiogram shows EF 50-55%, diastolic function is indeterminate, no evidence of regional wall motion abnormality Seen by Dr. Batista patient underwent pacemaker interrogation that showed underlying rhythm of atrial fibrillation, likely cause of CHF, will undergo cardioversion at a.m. Paroxysmal AFib Continue Eliquis, metoprolol and added amiodarone patient scheduled to undergo cardioversion at a.m. by Dr. Batista, NPO after midnight. HLD/hx of TIA Continue aspirin, statin Hypothyroidism Continue levothyroxine, recent TSH May 2023 3.22 Sjogren's syndrome Continue home meds Class 2 obesity recommended low-calorie diet/weight loss strategies discussed. Full Code DVT Prophylaxis: Lovenox Pt will require continued inpatient hospitalization for treatment of new onset congestive heart failure requiring IV diuretics and close renal and electrolyte monitoring, waiting for cardiac testing and interrogation. Quality Stroke Does the patient have a stroke diagnosis?: No VTE Prior VTE?: No VTE Risk Level:: Medical - moderate - high VTE Device Contraindication: Treatment Not Indicated VTE Drug Contraindication: N/A - Med Ordered
[2023-07-25 15:07] VITALS: BP 135/60; PULSE 76; RESP 20; TEMP 36.8; O2SAT 99
[2023-07-25 18:40] VITALS: BP 130/59; PULSE 90; RESP 16; TEMP 36.7; O2SAT 97
[2023-07-25] MEDS: traZODone HCL 50 MG TABLET 150 MG PO (20:20)
[2023-07-25] MEDS: Atorvastatin Calcium 20 MG TABLET PO (20:21)
[2023-07-26] VITALS (16 sets, daily range): BP systolic 90–177; BP diastolic 46–83; PULSE 64–111; RESP 13–20; TEMP 36.2–36.8; O2SAT 92–100; BMI 29.3
[2023-07-26] MEDS: 0.9 % Sodium Chloride Flush 3 ML SYRINGE IVFLUSH ×3 (00:01→16:27)
[2023-07-26] MEDS: Levothyroxine Sodium 100 MCG TABLET PO (05:52)
[2023-07-26] MEDS: Ferrous Sulfate 324 MG TABLET.DR PO (08:07)
[2023-07-26] MEDS: Cholecalciferol (Vitamin D3) 25 MCG TABLET PO (08:07)
[2023-07-26] MEDS: Apixaban 5 MG TABLET PO ×2 (08:07→20:44)
[2023-07-26] MEDS: Amiodarone HCL 200 MG TABLET 400 MG PO ×2 (08:07→20:44)
[2023-07-26] MEDS: Aspirin Enteric Coated 81 MG TABLET.DR PO (08:07)
[2023-07-26] MEDS: Metoprolol Tartrate 25 MG TABLET PO ×2 (08:07→20:44)
--- NOTE | 2023-07-26 09:26 | PM.PNCARD ---
Subjective Subjective Date of Service: 07/26/23 Interval history: She states she is feeling better. Shortness of breath is improved compared to admission. Review of Systems Review of Systems Yes all other systems are reviewed and are negative Constitutional: Reports as per HPI and Reports no additional constitutional complaints Eyes: Reports as per HPI and Denies no additional eye complaints Denies system reviewed and no additional complaints, except as documented and Reports as per HPI Cardiovascular: Reports as per HPI, Reports no additional cardiovascular complaints, Denies acrocyanosis, Denies cool extremities, Denies chest pain, Denies leg edema, Denies lightheadedness, Denies palpitations and Denies dyspnea Respiratory: Reports as per HPI, Denies no additional respiratory complaints and Denies dyspnea Gastrointestinal: Reports as per HPI and Denies no additional gastrointestinal complaints Genitourinary: Reports as per HPI Musculoskeletal: Reports no additional musculoskeletal complaints and Reports as per HPI Skin/Breast: Reports system reviewed and no additional complaints, except as docu Reports system reviewed and no additional complaints, except as documented and Reports as per HPI Psychiatric: Reports no additional psychiatric complaints and Reports as per HPI Endocrine: Reports no additional endocrine complaints, Reports as per HPI and Denies palpitations Hematologic/Lymphatic: Reports no additional hematologic/lymphatic complaints and Reports as per HPI Allergic/Immunologic: Reports no additional allergic/immunologic complaints and Reports as per HPI Physical Exam Vital Signs: Last Vital Signs Temp 97.3 F 07/26/23 07:34 Pulse 76 07/26/23 07:34 Resp 20 07/26/23 07:34 BP 148/66 H 07/26/23 07:34 Pulse Ox 95 07/26/23 07:34 O2 Del Method Room Air 07/26/23 07:34 BMI result Body Mass Index 29.3 Const General: comfortable and no acute distress Orientation/consciousness: patient oriented x3 HEENT Other: Unremarkable Head: Yes normal to inspection Neck Neck: Yes normal visual inspection Chest Chest palpation & inspection: normal inspection of the chest Resp Auscultation: clear to auscultation bilaterally Cardio Palpation: normal PMI Heart sounds: S1 normal heart sound present, S2 normal heart sound present, no gallops, Murmur heart sound present diastolic II/ and at the right sternal border and systolic II/ and at the right sternal border and no rubs GI Palpation (GI): Soft to palpation Back/Spine/Pelvis Other: unremarkable Skin General skin exam: no rashes or lesions noted Neuro General: patient oriented x3 Extrem General: Yes normal to inspection Psych Mental Status: mental status grossly normal Objective Labs and Meds 07/24/23 05:58 07/24/23 05:58 Progress Note: A&P Assessment and plan (1) Acute exacerbation of CHF (congestive heart failure): Status: Acute (2) S/P TAVR (transcatheter aortic valve replacement): Status: Acute (3) PAF (paroxysmal atrial fibrillation): Status: Acute Plan In the echocardiogram, LVEF 50-55%. Bioprosthetic aortic valve with mild paravalvular regurgitation. Severe mitral annular calcification with some stenosis. High sensitivity troponins were unremarkable. Cardiac BNP 483. Chest x-ray reported to have a small left pleural effusion/underlying atelectasis. Prominent pulmonary vascularity. Pacemaker was interrogated. Underlying rhythm is atrial fibrillation with biventricular pacing. Atrial pacing 28% ventricular pacing 56%. Atrial fibrillation has been noted since June with increasing OptiVol. One episode of atrial fibrillation rapid rate. Ventricular pacing less than 90% due to atrial fibrillation. Based on this, her congestive heart failure could have been precipitated because of recent atrial fibrillation. Started amiodarone as today. She has been on uninterrupted anticoagulation with Eliquis. Scheduled for cardioversion today. Patient agreeable. Time Spent With Patient Time: Total time managing care of this patient today ____ minutes. Progress Note: Quality Stroke Does the patient have a stroke diagnosis?: No Procedures Date of Service Date of Service: 07/26/23
--- NOTE | 2023-07-26 10:15 | MHC.CM.PN ---
Per ROUNDS discussion, Patient is getting a Cardioversion today and may be ready for dc to home soon. CM will follow.
--- NOTE | 2023-07-26 11:56 | P.CONAN_ITS ---
HPI - Anesthesia Eval Consult details Narrative: 78 yo female patient with atrial fibrillation for about 1 month. H/o paroxysmal afib but in last month complicated by CHF, breathing difficulty. For cardioversion. No h/o cardioversion in the past. On eliquis, aspirin. Last dose of eliquis this morning. [facility] Active Problems Active Problems: All Active Problems (Updated 07/26/23 @ 11:55 by Sunshine Craig MD) PAF (paroxysmal atrial fibrillation) (Acute) New onset of congestive heart failure (Acute) Acute exacerbation of CHF (congestive heart failure) (Acute) S/P TAVR (transcatheter aortic valve replacement) (Acute) History of compression fracture of spine (Acute) History of breast cancer (Acute) History of non-Hodgkin's lymphoma (Acute) Anemia (Acute) UTI (urinary tract infection) (Acute) Sjogren's syndrome with keratoconjunctivitis sicca (Acute) H/o TIAs SSS with high degree AV block. Dual chamber Pacemaker in place EF 50-55% Past Medical History Medical History Sjogren's syndrome with keratoconjunctivitis sicca Family History Family history of problems with anesthesia: No Surgical History Surgical History History of cardiac catheterization History of Problems with Anesthesia: No Social History Social History Household Members: Spouse Household Members Other:: Daughter Housing: House Alcohol intake: current Alcohol intake frequency: holidays/special occasions only Patient Tobacco Use Status: Former Tobacco user Quit Date: 50 years Cigarette Packs Per Day: 0.25 Years Smoked: 1 e-Cigarette/Vaping Use: Never Used service: No Meds Allergies Allergy/AdvReac Type Severity Reaction Status Date / Time amoxicillin [AMOXICILLIN] Allergy Mild hives, Verified 07/23/23 10:39 anaphylaxis, hives Penicillins [PENICILLINS] Allergy Mild hives Verified 07/23/23 10:39 Sulfa (Sulfonamide Allergy Mild HIVES Verified 07/23/23 10:39 Antibiotics) [SULFA (SULFONAMIDE ANTIBIOTICS)] Active Medications: Current Medications Acetaminophen (Acetaminophen 325 Mg Tablet) 650 mg PO Q6H PRN PRN Reason: Pain, Mild (Pain Scale 1-3) Amiodarone HCl (Amiodarone Hcl 200 Mg Tablet) 400 mg PO BID [facility] Last Admin: 07/26/23 08:07 Dose: 400 mg Apixaban (Apixaban 5 Mg Tablet) 5 mg PO BID [facility] Last Admin: 07/26/23 08:07 Dose: 5 mg Aspirin (Aspirin Enteric Coated 81 Mg Tablet.) 81 mg PO DAILY [facility] Last Admin: 07/26/23 08:07 Dose: 81 mg Atorvastatin Calcium (Atorvastatin Calcium 20 Mg Tablet) 20 mg PO BEDTIME [facility] Last Admin: 07/25/23 20:21 Dose: 20 mg Calcium Carbonate (Calcium Carbonate 500 Mg Tablet) 500 mg PO BID [facility] Last Admin: 07/26/23 08:07 Dose: 500 mg Ferrous Sulfate (Ferrous Sulfate 324 Mg Tablet.) 324 mg PO DAILY [facility] Last Admin: 07/26/23 08:07 Dose: 324 mg Levothyroxine Sodium (Levothyroxine Sodium 100 Mcg Tablet) 100 mcg PO DAILY@0600 [facility] Last Admin: 07/26/23 05:52 Dose: 100 mcg Melatonin (Melatonin 3 Mg Tablet) 6 mg PO BEDTIME PRN PRN Reason: Insomnia Metoprolol Tartrate (Metoprolol Tartrate 25 Mg Tablet) 25 mg PO BID [facility]; Protocol Last Admin: 07/26/23 08:07 Dose: 25 mg Non-Formulary Medication (Fluorometholone) 1 drop EYE-BOTH Q48H [facility] Ondansetron HCl (Ondansetron Hcl 4 Mg/2 Ml Vial) 4 mg IVPUSH Q8H PRN PRN Reason: Nausea and Vomiting Polyethyl Glycol/Propylene Glycol (Propylene Glycol/Peg 400 Gel Eye Drops 10ml) 1 drop EYE-BOTH 5XD PRN PRN Reason: Dry Eyes Sodium Chloride (0.9 % Sodium Chloride Flush 3 Ml Syringe) 3 ml IVFLUSH QSHIFT [facility] Last Admin: 07/26/23 08:09 Dose: 3 ml Trazodone HCl (Trazodone Hcl 50 Mg Tablet) 150 mg PO BEDTIME [facility] Last Admin: 07/25/23 20:20 Dose: 150 mg Vitamin D (Cholecalciferol (Vitamin D3) 25 Mcg Tablet) 25 mcg PO DAILY [facility] Last Admin: 07/26/23 08:07 Dose: 25 mcg Home Medications Medication Instructions Recorded Confirmed Last Taken Type apixaban 5 mg tablet (Eliquis) 5 mg PO BID 08/24/20 07/23/23 07/23/23 History cholecalciferol (vitamin D3) 25 25 mcg PO DAILY 08/24/20 07/23/23 07/23/23 History mcg (1,000 unit) capsule levothyroxine 100 mcg capsule 100 mcg PO DAILY 08/24/20 07/23/23 07/23/23 History simvastatin 40 mg tablet 40 mg PO BEDTIME 08/24/20 07/23/23 07/23/23 History calcium carbonate 600 mg calcium 600 mg PO BID 11/27/21 07/23/23 07/23/23 History (1,500 mg) tablet ferrous sulfate 325 mg (65 mg 325 mg PO DAILY 11/27/21 07/23/23 07/23/23 History iron) tablet alendronate 70 mg tablet 70 mg PO MOREIRA 11/13/22 07/23/23 07/21/23 History aspirin 81 mg tablet,delayed 81 mg PO DAILY 11/13/22 07/23/23 07/23/23 History release fluorometholone 0.1 % eye 1 drp ophthalmic (eye) Q48H 11/13/22 07/23/23 Unknown History drops,suspension metoprolol tartrate 25 mg tablet 25 mg PO BID 07/23/23 07/23/23 07/23/23 History peg 400-propylene glycol (PF) 0.4 1 drp ophthalmic (eye) 5XD PRN Dry 07/23/23 07/23/23 Unknown History %-0.3 % eye drops in a dropperette Eyes (Systane (PF)) trazodone 150 mg tablet 150 mg PO BEDTIME Insomnia 07/23/23 07/23/23 Unknown History Exam Height,Weight and Vital Signs: Height 5 ft 5 in Weight 79.9 kg Last Vital Signs Temp 98.2 F 07/26/23 11:37 Pulse 111 H 07/26/23 11:37 Resp 18 07/26/23 11:37 BP 134/52 L 07/26/23 11:37 Pulse Ox 96 07/26/23 11:37 O2 Del Method Room Air 07/26/23 11:37 Pertinent Lab Results Pertinent Lab Results: Laboratory Tests 07/23/23 07/23/23 07/24/23 11:12 16:11 05:58 WBC 11.9 H 8.9 RBC 3.71 L 3.61 L Hgb 11.5 L 11.2 L Hct 35.5 L 33.9 L MCV 95.7 93.9 MCH 31.0 31.0 MCHC 32.4 33.0 RDW 14.3 14.2 Plt Count 221 227 MPV 10.3 11.2 Immature Gran % (Auto) 0.4 0.3 Neut % (Auto) 82.0 H 70.1 Lymph % (Auto) 5.5 L 11.4 L [place] % (Auto) 11.3 H 15.2 H Eos % (Auto) 0.4 2.4 Baso % (Auto) 0.4 0.6 Lymph # (Auto) 0.7 L 1.0 L [place] # (Auto) 1.4 H 1.4 H Eos # (Auto) 0.1 0.2 Baso # (Auto) 0.1 0.1 Abs Immat Gran (auto) 0.05 H 0.03 Absolute Neuts (auto) 9.7 H 6.2 Absolute Nucleated RBC 0.030 H 0.020 H Nucleated RBC % (auto) 0.3 H 0.2 PT 24.2 H INR 2.0 H Sodium 136 138 Potassium 4.1 3.8 Chloride 105 103 Carbon Dioxide 18 L 25 Anion Gap 17 14 BUN 15 12 Creatinine 1.00 0.87 Estim Creat Clear Calc 55.8 64.1 Estimated GFR 54 > 60 Random Glucose 124 H 98 Calcium 9.0 9.2 Magnesium 2.0 Total Bilirubin 1.1 H AST 25 ALT 28 Alkaline Phosphatase 71 Troponin I High Sens 4.1 4.7 B-Natriuretic Peptide 483 H Total Protein 7.1 Albumin 3.6 Narrative Narrative: Date of Service: 07/24/23 Procedure Type: Transthoracic Echocardiogram Symptoms: CHF Study Quality: Adequate ECG Rhythm: Atrial Fibrillation Conclusions: - The left ventricular systolic function is low normal. The visually estimated ejection fraction is between 50-55%. - A bioprosthetic aortic valve is present. The prosthetic aortic valve appears to be functioning normally. Mild para-valvular regurgitation. - There is severe mitral annular calcification. There is trace mitral valve regurgitation. Suspect some degree of mitral stenosis but likely not severe. Findings Left Ventricle Normal left ventricular cavity size. There is mildly increased left ventricular wall thickness. The left ventricular systolic function is low normal. The visually estimated ejection fraction is between 50-55%. There is no evidence of regional wall motion abnormalities. Diastolic function is indeterminate on the basis of available data. Right Ventricle Mildly increased right ventricular cavity size. There is normal right ventricular systolic function. There is a pacemaker wire seen in the right ventricle. Atria Moderate biatrial enlargement. Aortic Valve A bioprosthetic aortic valve is present. The prosthetic aortic valve appears to be functioning normally. Mild para-valvular regurgitation. Mitral Valve There is severe mitral annular calcification. There is trace mitral valve regurgitation. Suspect some degree of mitral stenosis but likely not severe. Pulmonic Valve The pulmonic valve is likely normal. Tricuspid Valve There is mild tricuspid valve regurgitation. There is no evidence of pulmonary hypertension. Great Vessels The asc aorta is normal in size. Venous The inferior vena cava is normal in size and collapses greater than 50% with inspiration. Pericardium/Pleural There is no evidence of pericardial effusion. Prior Study Comparison No prior study available for comparison. Airway Mallampati Class: III TM Dist: >3cm Neck ROM: Full Loose/Missing/Broken Teeth: Yes (Many missing. Some broken. No loose) Heart: Irregularly irregular. Murmur Lungs: ?faint crackles Assessment and Plan Assessment Anesthesia Assessment: Anesthesia Plan Discussed and Chart Reviewed Final Anesthetic Review Family History of Problems with Anesthesia: No History of Problems with Anesthesia: No NPO: Yes ASA Class: IV and Emergency Final Preanesthetic Review: No Changes in Pt Med Stat Patient Risk: High Procedure Risk: Intermediate Assessment/Block/Sedation in SS: Assess/Block/Sedation-SS Anesthetic Plan Anesthetic Plan: GA Disposition: Standard PACU and Inp. Admit - IMC
--- NOTE | 2023-07-26 12:21 | MHC.SHP ---
Pre-Procedural Eval Section A - 24 Hr Update-Section A only Date of Service: 07/26/23 The patient is an INPATIENT: Yes Section B - Complete if H&P > 30 days Chief Complaint: Dyspnea Allergies: Allergies Allergy/AdvReac Type Severity Reaction Status Date / Time amoxicillin [AMOXICILLIN] Allergy Mild hives, Verified 07/23/23 10:39 anaphylaxis, hives Penicillins [PENICILLINS] Allergy Mild hives Verified 07/23/23 10:39 Sulfa (Sulfonamide Allergy Mild HIVES Verified 07/23/23 10:39 Antibiotics) [SULFA (SULFONAMIDE ANTIBIOTICS)] Plan I have reviewed the history and physical and performed a pertinent physical examination on my patient. No changes have occurred unless specified. Time Spent With Patient Time: Total time managing care of this patient today ____ minutes.
--- NOTE | 2023-07-26 12:21 | HO.CARDIVERS ---
Cardioversion Procedure Note Cardioversion Date of Procedure: 07/26/2023 Ordering Provider: Performing Provider: Indication for Procedure: Atrial fibrillation; CHF Pre-Op Diagnosis: Atrial fibrillation Post-Op Diagnosis: Atrial fibrillation GIO findings (if GIO Performed): Not performed. History: See progress note. Consent: Informed consent obtained. Procedure: After informed consent was obtained, patient was taken to the PACU. The patient was then positioned appropriately. The cardioversion pads were placed in anteroposterior position. Once under anesthesia, 150 joules of synchronized shock was administered. The rhythm converted from atrial fibrillation to sinus rhythm briefly, but went back to Atrial fibrillation. Another shock administered at 150J. Eventually rhythm remained in atrial fibrillation. Complications: None Impression: Unsuccessful cardioversion. Recommendations: Amiodarone loading and reattempt cardioversion in few weeks. Continue Eliquis.
--- NOTE | 2023-07-26 14:21 | P.PNIM_ITS ---
Subjective Subjective Date of Service: 07/26/23 Interval History: Being followed for shortness of breath and acute onset CHF. Feeling better this morning denies shortness of breath, no chest pain, no palpitations, no acute issues overnight is NPO for cardioversion complaining of dry mouth. Review of Systems All other system reviewed and negative. Physical Exam 2 Vital Signs: Vital Signs: Last Vital Signs Temp 97.2 F 07/26/23 13:49 Pulse 67 07/26/23 13:49 Resp 18 07/26/23 13:49 BP 137/73 07/26/23 13:49 Pulse Ox 98 07/26/23 13:49 O2 Del Method Room Air 07/26/23 13:49 O2 Flow Rate 2 07/26/23 13:34 BMI result Body Mass Index 29.3 Const: Other: General awake alert x3, in no acute distress. Neck supple, no JVD. CVS regular rate rhythm, systolic murmur Respiratory lungs clear to auscultation, no respiratory distress, no wheeze, no rales Gastrointestinal abdomen soft, non tender, bowel sounds audible, no guarding , no rigidity. Extremities LE edema improved. Neuro non focal Skin no rash Psych appropriate affect Objective Data Active Medications Acetaminophen (Acetaminophen 325 Mg Tablet) 650 mg PO Q6H PRN PRN Reason: Pain, Mild (Pain Scale 1-3) Amiodarone HCl (Amiodarone Hcl 200 Mg Tablet) 400 mg PO BID [facility] Last Admin: 07/26/23 08:07 Dose: 400 mg Documented By: DAVID Apixaban (Apixaban 5 Mg Tablet) 5 mg PO BID [facility] Last Admin: 07/26/23 08:07 Dose: 5 mg Documented By: DAVID Aspirin (Aspirin Enteric Coated 81 Mg Tablet.) 81 mg PO DAILY [facility] Last Admin: 07/26/23 08:07 Dose: 81 mg Documented By: DAVID Atorvastatin Calcium (Atorvastatin Calcium 20 Mg Tablet) 20 mg PO BEDTIME [facility] Last Admin: 07/25/23 20:21 Dose: 20 mg Documented By: PREMA Calcium Carbonate (Calcium Carbonate 500 Mg Tablet) 500 mg PO BID [facility] Last Admin: 07/26/23 08:07 Dose: 500 mg Documented By: DAVID Ferrous Sulfate (Ferrous Sulfate 324 Mg Tablet.) 324 mg PO DAILY [facility] Last Admin: 07/26/23 08:07 Dose: 324 mg Documented By: DAVID Lactated Ringer's (Lr) 1,000 mls @ 50 mls/hr IVCONT .Q20H [facility] Levothyroxine Sodium (Levothyroxine Sodium 100 Mcg Tablet) 100 mcg PO DAILY@0600 [facility] Last Admin: 07/26/23 05:52 Dose: 100 mcg Documented By: ANTOIC Melatonin (Melatonin 3 Mg Tablet) 6 mg PO BEDTIME PRN PRN Reason: Insomnia Metoprolol Tartrate (Metoprolol Tartrate 25 Mg Tablet) 25 mg PO BID [facility]; Protocol Last Admin: 07/26/23 08:07 Dose: 25 mg Documented By: DAVID Non-Formulary Medication (Fluorometholone) 1 drop EYE-BOTH Q48H [facility] Ondansetron HCl (Ondansetron Hcl 4 Mg/2 Ml Vial) 4 mg IVPUSH Q8H PRN PRN Reason: Nausea and Vomiting Polyethyl Glycol/Propylene Glycol (Propylene Glycol/Peg 400 Gel Eye Drops 10ml) 1 drop EYE-BOTH 5XD PRN PRN Reason: Dry Eyes Sodium Chloride (0.9 % Sodium Chloride Flush 3 Ml Syringe) 3 ml IVFLUSH QSHIFT [facility] Last Admin: 07/26/23 08:09 Dose: 3 ml Documented By: DAVID Trazodone HCl (Trazodone Hcl 50 Mg Tablet) 150 mg PO BEDTIME [facility] Last Admin: 07/25/23 20:20 Dose: 150 mg Documented By: PREMA Vitamin D (Cholecalciferol (Vitamin D3) 25 Mcg Tablet) 25 mcg PO DAILY [facility] Last Admin: 07/26/23 08:07 Dose: 25 mcg Documented By: DAVID Labs 07/24/23 05:58 07/24/23 05:58 Assessment and Plan (1) PAF (paroxysmal atrial fibrillation): Status: Acute (2) New onset of congestive heart failure: Status: Acute Plan 78-year-old female with a PMH significant for?paroxysmal AFib on Eliquis, TAVR in 08/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 Pt admitted to the hospital for treatment further evaluation of new onset CHF. New onset CHF with preserved EF CHF likely due to atrial fibrillation Feeling better, shortness and breath and orthopnea resolved CXR on admission showed left pleural effusion and prominent pulmonary vascularity, BNP 483 s/p iv Furosemide 40 mg , will hold further diuretics appears euvolemic Last echo from [facility] 2022 showed EF 65-70%, trivial paravalvular leak and calcific mitral stenosis Repeat Echocardiogram shows EF 50-55%, diastolic function is indeterminate, no evidence of regional wall motion abnormality Seen by Dr. Batista patient underwent pacemaker interrogation that showed underlying rhythm of atrial fibrillation, likely cause of CHF. Paroxysmal AFib Continue Eliquis, metoprolol and amiodarone 400 mg b.i.d. loading dose x2 weeks and then 200 mg daily Patient underwent cardioversion but it was unsuccessful, plan is to repeat cardioversion in few weeks what. Continue tele monitor times 24 hours if stable will discharge home HLD/hx of TIA Continue aspirin, statin Hypothyroidism Continue levothyroxine, recent TSH May 2023 3.22 Sjogren's syndrome Continue home meds Class 2 obesity recommended low-calorie diet/weight loss strategies discussed. Full Code DVT Prophylaxis: Lovenox Pt will require continued inpatient hospitalization for treatment of new onset congestive heart failure and close renal and electrolyte monitoring, requiring continue tele monitoring for persistent AFib and amiodarone loading. Quality Stroke Does the patient have a stroke diagnosis?: No VTE Prior VTE?: No VTE Risk Level:: Medical - moderate - high VTE Device Contraindication: Treatment Not Indicated VTE Drug Contraindication: N/A - Med Ordered
[2023-07-26 15:23] LABS: Anion Gap 17 (12-20); Blood Urea Nitrogen 17 mg/dL (9-16); Calcium 9.7 mg/dL (8.4-10.2); Carbon Dioxide 23 mmol/L (22-29); Chloride 101 mmol/L (96-108); Creatinine Clr Calc Pharmacy 43.1; Estimated Glomerular Filt Rate 46; Glucose Random 89 mg/dL (60-115); Potassium 4.2 mmol/L (3.3-5.1); Sodium 137 mmol/L (135-145)
[2023-07-26 15:26] LABS: B Type Natriuretic Peptide 262 pg/mL (<100)
[2023-07-26] MEDS: Atorvastatin Calcium 20 MG TABLET PO (20:43)
[2023-07-26] MEDS: traZODone HCL 50 MG TABLET 150 MG PO (20:43)
[2023-07-27] VITALS: BP 142/69; PULSE 73; RESP 18; TEMP 36.3; O2SAT 95
[2023-07-27] MEDS: 0.9 % Sodium Chloride Flush 3 ML SYRINGE IVFLUSH ×2 (01:26→09:12)
[2023-07-27 04:00] VITALS: BP 146/65; PULSE 72; RESP 18; TEMP 36.4; O2SAT 96
[2023-07-27] MEDS: Levothyroxine Sodium 100 MCG TABLET PO (05:20)
[2023-07-27 06:00] VITALS: BMI 28.9
[2023-07-27 07:20] VITALS: BP 144/66; PULSE 77; RESP 18; TEMP 36.1; O2SAT 96
[2023-07-27] MEDS: Amiodarone HCL 200 MG TABLET 400 MG PO (09:12)
[2023-07-27] MEDS: Metoprolol Tartrate 25 MG TABLET PO (09:12)
[2023-07-27] MEDS: Aspirin Enteric Coated 81 MG TABLET.DR PO (09:12)
[2023-07-27] MEDS: Ferrous Sulfate 324 MG TABLET.DR PO (09:12)
[2023-07-27] MEDS: Cholecalciferol (Vitamin D3) 25 MCG TABLET PO (09:12)
[2023-07-27] MEDS: Apixaban 5 MG TABLET PO (09:12)
--- NOTE | 2023-07-27 10:24 | PM.PNCARD ---
Subjective Subjective Date of Service: 07/27/23 Interval history: She states she feels okay. No new complaints. Review of Systems Review of Systems Yes all other systems are reviewed and are negative Constitutional: Reports as per HPI and Reports no additional constitutional complaints Eyes: Reports as per HPI and Denies no additional eye complaints Denies system reviewed and no additional complaints, except as documented and Reports as per HPI Cardiovascular: Reports as per HPI, Reports no additional cardiovascular complaints, Denies acrocyanosis, Denies cool extremities, Denies chest pain, Denies leg edema, Denies lightheadedness, Denies palpitations and Denies dyspnea Respiratory: Reports as per HPI, Denies no additional respiratory complaints and Denies dyspnea Gastrointestinal: Reports as per HPI and Denies no additional gastrointestinal complaints Genitourinary: Reports as per HPI Musculoskeletal: Reports no additional musculoskeletal complaints and Reports as per HPI Skin/Breast: Reports system reviewed and no additional complaints, except as docu Reports system reviewed and no additional complaints, except as documented and Reports as per HPI Psychiatric: Reports no additional psychiatric complaints and Reports as per HPI Endocrine: Reports no additional endocrine complaints, Reports as per HPI and Denies palpitations Hematologic/Lymphatic: Reports no additional hematologic/lymphatic complaints and Reports as per HPI Allergic/Immunologic: Reports no additional allergic/immunologic complaints and Reports as per HPI Physical Exam Vital Signs: Last Vital Signs Temp 97.0 F 07/27/23 07:20 Pulse 77 07/27/23 07:20 Resp 18 07/27/23 07:20 BP 144/66 H 07/27/23 07:20 Pulse Ox 96 07/27/23 07:20 O2 Del Method Room Air 07/27/23 07:20 O2 Flow Rate 2 07/26/23 13:34 BMI result Body Mass Index 28.9 Const General: comfortable and no acute distress Orientation/consciousness: patient oriented x3 HEENT Other: Unremarkable Head: Yes normal to inspection Neck Neck: Yes normal visual inspection Chest Chest palpation & inspection: normal inspection of the chest Resp Auscultation: clear to auscultation bilaterally Cardio Palpation: normal PMI Heart sounds: S1 normal heart sound present, S2 normal heart sound present, no gallops, Murmur heart sound present diastolic II/ and at the right sternal border and systolic II/ and at the right sternal border and no rubs GI Palpation (GI): Soft to palpation Back/Spine/Pelvis Other: unremarkable Skin General skin exam: no rashes or lesions noted Neuro General: patient oriented x3 Extrem General: Yes normal to inspection Psych Mental Status: mental status grossly normal Objective Labs and Meds 07/24/23 05:58 07/26/23 14:29 Lab results: Laboratory Results - last 24 hr 07/26/23 14:29 Sodium 137 Potassium 4.2 Chloride 101 Carbon Dioxide 23 Anion Gap 17 BUN 17 H Creatinine 1.14 Estim Creat Clear Calc 43.1 Estimated GFR 46 Random Glucose 89 Calcium 9.7 B-Natriuretic Peptide 262 H Progress Note: A&P Assessment and plan (1) Acute exacerbation of CHF (congestive heart failure): Status: Acute (2) S/P TAVR (transcatheter aortic valve replacement): Status: Acute (3) PAF (paroxysmal atrial fibrillation): Status: Acute Plan In the echocardiogram, LVEF 50-55%. Bioprosthetic aortic valve with mild paravalvular regurgitation. Severe mitral annular calcification with some stenosis. High sensitivity troponins were unremarkable. Cardiac BNP 483. Chest x-ray reported to have a small left pleural effusion/underlying atelectasis. Prominent pulmonary vascularity. Pacemaker was interrogated. Underlying rhythm is atrial fibrillation with biventricular pacing. Atrial pacing 28% ventricular pacing 56%. Atrial fibrillation has been noted since June with increasing OptiVol. One episode of atrial fibrillation rapid rate. Ventricular pacing less than 90% due to atrial fibrillation. Based on this, her congestive heart failure could have been precipitated because of recent atrial fibrillation. Yesterday, we tried cardioversion x2 but did not respond. She still in atrial fibrillation. Clinically however she feels better. She can continue the amiodarone load followed by maintenance. Continue anticoagulation. Ideally, another cardioversion 4-6 weeks after being on amiodarone. She might respond. Can also consider ablation after the cardioversion. Informed EP PA at [facility] [place] and he will arrange follow-up. Discussed with Dr. Gallardo. Time Spent With Patient Time: Total time managing care of this patient today ____ minutes. Progress Note: Quality Stroke Does the patient have a stroke diagnosis?: No Procedures Date of Service Date of Service: 07/27/23
--- NOTE | 2023-07-27 10:30 | MHC.CM.PN ---
second IMM 07/27/23, Pt is independent, she is going home via private transport, no home services.
[2023-07-27 10:31] VITALS: BP 139/78; PULSE 77; RESP 18; TEMP 36; O2SAT 97
--- NOTE | 2023-07-27 10:55 | PM.DS ---
DS: Providers Provider Date of Service: 07/27/23 Date of admission: 07/23/23 20:27 Primary care physician: Demetrius Cote MD Consults: 07/23/23 20:27 Consult to Cardiology Routine Consulting Provider: [facility] [place] Cardiovascular Services Reason for consultation: ?CHF Has provider been notified: Yes DS: Diagnosis Discharge Diagnosis (1) Acute exacerbation of CHF (congestive heart failure): Status: Acute (2) S/P TAVR (transcatheter aortic valve replacement): Status: Acute (3) PAF (paroxysmal atrial fibrillation): Status: Acute DS: Summary Hospital Course Hospital Course: History of presenting illness Date of Service: 07/23/23 Attending physician on admission: Sanchez Richardson Chief Complaint: SOB, MI, LLE Pt is a 78-year-old female with a PMH significant for?paroxysmal AFib on Eliquis, 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 Pt reports symptoms began approximately one week ago when she began experiencing shortness of breath and dyspnea upon exertion, especially with going upstairs. Also noticed increasing lower leg edema, especially in left leg. Purchased some compression stockings last week but found they no longer fit as edema increased yesterday. Patient also notes has been experiencing orthopnea and chest tightness that has especially become apparent the past few days. Patient has been finding it harder to breathe even at rest, so called PCP this morning who then sent her to the ED for further evaluation. Endorses occasional palpitations. Denies fever, chills, nausea, vomiting, abdominal pain. Denies cough. In the ED pt was tachypneic up to 22 and hypertensive up to 164/83, satting at 90 6% on RA. Labs were significant for WBC of 11.9 and BNP elevated at 483. Initial troponin 4.1 with repeat flat at 4.7. CXR showed likely small left pleural effusion, and prominent pulmonary vascularity but no congestion. EKG demonstrated ventricular pacing possibly some atrial pacing, and suspected underlying rhythm of AFib. Pt was treated with furosemide 40 mg IV. Pt will be admitted to the hospital for treatment further evaluation of new onset CHF. 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 New onset CHF with preserved EF , patient admitted to telemetry unit treated with IV Lasix, chest x-ray showed left pleural effusion and prominent pulmonary vascularity with BNP of 483 patient responded well to diuretics all symptoms of shortness of breath and orthopnea resolved subsequently seen by Dr. Batista underwent pacemaker interrogation that showed underlying rhythm of atrial fibrillation that was felt to be the cause of CHF, and echocardiogram showed EF 50-55%, diastolic function was indeterminate, there was no evidence of regional wall motion abnormality, patient placed on amiodarone loading dose 400 mg b.i.d. and underwent an attempt for cardioversion however it was unsuccessful therefore patient is now being discharged home on amiodarone loading dose of 400 mg b.i.d. for total 14 days followed by amiodarone 200 mg daily patient will undergo repeat cardioversion in next few weeks. She is recommended to continue home dose of metoprolol and amiodarone. She has been informed to notify PCP with muscle aches and pains while on amiodarone and simvastatin. In regard to history of hyperlipidemia and TIA she is continued on aspirin and statin . Hypothyroidism Continue levothyroxine, recent TSH May 2023 3.22 Sjogren's syndrome Continue home meds Class 2 obesity recommended low-calorie diet/weight loss strategies discussed. Time Attestation Discharge Coordination Time (in mins): 40 Quality: Safe Use of Opioids Does Pt have an Active Cancer Diagnosis on the Problem List?: No Quality: Stroke Does the patient have a stroke diagnosis?: No Physical Exam Vital Signs: Vital Signs: Last Vital Signs Temp 96.8 F 07/27/23 10:31 Pulse 77 07/27/23 10:31 Resp 18 07/27/23 10:31 BP 139/78 07/27/23 10:31 Pulse Ox 97 07/27/23 10:31 O2 Del Method Room Air 07/27/23 10:31 O2 Flow Rate 2 07/26/23 13:34 BMI result Body Mass Index 28.9 Const: Other: General awake alert x3, in no acute distress. Neck supple, no JVD. CVS regular rate rhythm, systolic murmur Respiratory lungs clear to auscultation, no respiratory distress, no wheeze, no rales Gastrointestinal abdomen soft, non tender, bowel sounds audible, no guarding , no rigidity. Extremities LE edema improved. Neuro non focal Skin no rash Psych appropriate affect DS: Data Data Completed and Pending Labs on day of discharge: Laboratory Results - last 24 hr 07/26/23 14:29 Sodium 137 Potassium 4.2 Chloride 101 Carbon Dioxide 23 Anion Gap 17 BUN 17 H Creatinine 1.14 Estim Creat Clear Calc 43.1 Estimated GFR 46 Random Glucose 89 Calcium 9.7 B-Natriuretic Peptide 262 H Discharge Plan Discharge Anticipated Discharge Date/Time: 07/27/23 10:18 Patient Disposition: Home, Self-Care Discharge Diagnosis: New onset congestive heart failure with preserved EF Paroxysmal atrial fibrillation Referrals: Demetrius Cote MD [Primary Care Provider] - 1 Week Discharge Medications: New amiodarone 200 mg Tablet 400 mg PO BID Qty: 120 0RF Rx Instructions: Take amiodarone 400 mg (200 mg x 2) tablets twice daily for 12 days Then take amiodarone 200 mg 1 tablet daily furosemide [Lasix] 20 mg tablet 20 mg PO Q OTHER DAY Qty: 60 0RF Continued metoprolol tartrate 25 mg Tablet 25 mg PO BID Systane (PF) 0.4-0.3 % Dropperette 1 drp OPHTHALMIC (EYE) 5XD PRN (Reason: Dry Eyes) trazodone 150 mg tablet 150 mg PO BEDTIME cholecalciferol (vitamin D3) 25 mcg (1,000 unit) capsule 25 mcg PO DAILY Eliquis 5 mg tablet 5 mg PO BID levothyroxine 100 mcg capsule 100 mcg PO DAILY simvastatin 40 mg tablet 40 mg PO BEDTIME calcium carbonate 600 mg calcium (1,500 mg) tablet 600 mg PO BID ferrous sulfate 325 mg (65 mg iron) tablet 325 mg PO DAILY aspirin 81 mg tablet,delayed release (DR/EC) 81 mg PO DAILY fluorometholone 0.1 % drops,suspension 1 drp ophthalmic (eye) Q48H alendronate 70 mg tablet 70 mg PO MOREIRA Discharge Orders: Discharge Order (Routine); Ordered 07/27/23 Ordered By: Carmel Gallardo Diet: Low fat, low cholesterol Activity on Discharge: As tolerated Stand Alone Forms: Patient Portal Discharge page Care Plan Goals: New onset congestive heart failure resolved likely due to atrial fibrillation take Lasix Saturday and Saturday Take amiodarone 400 mg (200 mg 2 tablets) twice daily for 12 days and then 200 mg 1 tablet daily Continue all home medication Return to check with recurrent symptoms of shortness of breath, chest pain or palpitations. Health Concerns: Sjogren syndrome Plan of Treatment: Call Cardiology for outpatient appointment Follow-up with primary care physician Assessment: As above Patient Instructions: Amiodarone (By mouth), Cardioversion (GEN)
--- NOTE | 2023-07-28 21:12 | HO.POSTANES ---
Post Anesthesia Evaluation Post Anesthesia Evaluation Date of Service: 07/26/23 Anesthesia: General Mental Status: Awake Pain Control: Satisfactory Nausea/Vomiting: None Hydration: Adequate Anesthesia-Related Issues: No Anes. Related Issues
== END 2023-07-27 12:25 | disposition home or self-care (01) | DRG 308 ==
LOC: HO.ED 20:34 → HO.EDOVER 07-24 07:08 → HO.IMC 07-24 10:46 → HO.EDOVER 07-24 12:08
PROVIDERS: Internal Medicine; Physician Assistant Medical; Admitting Provider Student in an Organized Health Care Education/Training Program; Emergency Provider Internal Medicine; PCP Internal Medicine Medical Oncology; Visit Provider Hospitalist
PROC: 5A2204Z Restoration of Cardiac Rhythm, Single (ICD-10-PCS; principal; 2023-07-26 12:30)
DX: I48.0 Paroxysmal atrial fibrillation (principal); I50.31 Acute diastolic (congestive) heart failure; M35.00 Sjogren syndrome, unspecified; I05.0 Rheumatic mitral stenosis; Z45.018 Encounter for adjustment and management of other part of cardiac pacemaker; Z95.2 Presence of prosthetic heart valve; E66.8 Other obesity; Z68.37 Body mass index [BMI] 37.0-37.9, adult; Z87.891 Personal history of nicotine dependence; Z79.01 Long term (current) use of anticoagulants; Z71.3 Dietary counseling and surveillance; E78.5 Hyperlipidemia, unspecified; Z86.73 Personal history of transient ischemic attack (TIA), and cerebral infarction without residual deficits; Z79.82 Long term (current) use of aspirin; Z79.890 Hormone replacement therapy; Z79.899 Other long term (current) drug therapy
CPT/HCPCS: 36415; 71046; 80048; 80053; 83735; 83880; 84484; 85025; 85610; 92960; 93005; 93306; 99285; J1940; J2704; Q9957

== ENCOUNTER → 2023-07-23 10:51 | Outpatient (BNV) | payer MEDICARE, SELFPAY ==
[2023-01-14 15:19] VITALS: BP 130/62; BP 134/66; BP 138/70; BMI 33.3
== END ==
PROVIDERS: Emergency Provider Internal Medicine; PCP Internal Medicine Medical Oncology; Visit Provider Internal Medicine
DX: R06.00 Dyspnea, unspecified (principal)
CPT/HCPCS: 93010

== ENCOUNTER → 2023-07-23 20:27 | Outpatient (BNV) | payer MEDICARE, SELFPAY ==
[2023-01-14 15:19] VITALS: BP 130/62; BP 134/66; BP 138/70; BMI 33.3
== END ==
PROVIDERS: Admitting Provider Student in an Organized Health Care Education/Training Program; Emergency Provider Internal Medicine; PCP Internal Medicine Medical Oncology; Visit Provider Student in an Organized Health Care Education/Training Program
DX: I50.9 Heart failure, unspecified (principal); Z95.2 Presence of prosthetic heart valve; I48.0 Paroxysmal atrial fibrillation
CPT/HCPCS: 99223; 99232; 99233; 99239

== ENCOUNTER → 2023-07-24 07:15 | Outpatient (BNV) | payer MEDICARE, SELFPAY ==
[2023-01-14 15:19] VITALS: BP 130/62; BP 134/66; BP 138/70; BMI 33.3
== END ==
PROVIDERS: Admitting Provider Student in an Organized Health Care Education/Training Program; Emergency Provider Internal Medicine; PCP Internal Medicine Medical Oncology; Visit Provider Internal Medicine
DX: I50.9 Heart failure, unspecified (principal); Z95.2 Presence of prosthetic heart valve; I48.0 Paroxysmal atrial fibrillation; I34.81 Nonrheumatic mitral (valve) annulus calcification; I34.2 Nonrheumatic mitral (valve) stenosis
CPT/HCPCS: 92960; 93306; 99223; 99233

== ENCOUNTER 2023-08-07 08:31 | Outpatient (REF) | payer MEDICARE, SELFPAY ==
[2023-01-14 15:19] VITALS: BP 130/62; BP 134/66; BP 138/70; BMI 33.3
[2023-08-07 10:23] LABS: MANUAL DIFF FLAG NO
[2023-08-07 10:31] LABS: Basophils Absolute Auto 0.1 X10*3/uL (0.0-0.2); Basophils Percent Auto 0.7 % (0-2); Eosinophils Absolute Auto 0.2 X10*3/uL (0.0-0.4); Eosinophils Percent Auto 3.4 % (0-4); Hematocrit 36.1 % (37.0-47.0); Hemoglobin 11.5 g/dl (12.0-16.0); Imm Gran Abs Auto 0.03 X10*3/uL (0.00-0.03); Imm Gran Pct Auto 0.4 % (0.0-0.4); Lymphocytes Absolute Auto 0.9 X10*3/uL (1.2-4.9); Lymphocytes Percent Auto 12.9 % (20-40); Mean Corpuscular HGB Conc 31.9 g/dl (31.0-35.0); Mean Corpuscular Hemoglobin 30.4 pg (27.0-33.0); Mean Corpuscular Volume 95.5 fL (80.0-98.0); Mean Platelet Volume 11.3 fL (9.4-12.3); Monocytes Absolute Auto 0.9 X10*3/uL (0.1-1.2); Monocytes Percent Auto 12.6 % (2-11); Neutrophils Absolute Auto 4.9 x10*3/uL (2.0-8.3); Platelet Count 226 X10*3/uL (160-400); Red Blood Count 3.78 X10*6/uL (4.20-5.50); Red Cell Distribution Width 14.2 % (11.0-16.0)
[2023-08-07 11:09] LABS: Alanine Aminotransferase 41 U/L (0-31); Albumin Level 3.6 g/dL (3.5-5.0); Alkaline Phosphatase 67 U/L (39-117); Anion Gap 10 (12-20); Aspartate Amino Transferase 37 U/L (5-31); Bilirubin Total 0.6 mg/dL (0.0-1.0); Blood Urea Nitrogen 24 mg/dL (9-16); Calcium 9.2 mg/dL (8.4-10.2); Carbon Dioxide 27 mmol/L (22-29); Chloride 106 mmol/L (96-108); Cholesterol 94 mg/dL (<200); Estimated Glomerular Filt Rate 42; Glucose Fasting 97 mg/dL (60-99); HDL Cholesterol 46 mg/dL (>40); LDL Cholesterol Calculated 38 mg/dL (<100); Lactate Dehydrogenase 257 U/L (122-220); Potassium 4.3 mmol/L (3.3-5.1); Sodium 139 mmol/L (135-145); Total Protein 7.1 g/dL (6.5-8.0); Triglycerides 51 mg/dL (<150)
[2023-08-07 11:30] LABS: Free T4 (Free Thyroxine) 1.17 ng/dL (0.71-1.85); Thyroid Stimulating Hormone 4.79 uIU/mL (0.32-4.0)
[2023-08-09 15:09] LABS: Carbohydrate Antigen 19-9 25 U/mL (<34)
== END 2023-08-07 08:32 | disposition home or self-care (01) ==
LOC: HO.HMGCLDS 08:31
PROVIDERS: PCP Internal Medicine Medical Oncology; Visit Provider Internal Medicine Medical Oncology
DX: C50.911 Malignant neoplasm of unspecified site of right female breast (principal); E66.9 Obesity, unspecified; E03.9 Hypothyroidism, unspecified; K86.9 Disease of pancreas, unspecified; E78.01 Familial hypercholesterolemia
CPT/HCPCS: 36415; 80053; 80061; 83615; 84439; 84443; 85025; 86301

== ENCOUNTER 2023-08-12 12:47 | Outpatient (REF) | payer MEDICARE, SELFPAY ==
[2023-01-14 15:19] VITALS: BP 130/62; BP 134/66; BP 138/70; BMI 33.3
--- NOTE | ~2023-08-12 | MM_ITS ---
EXAMINATION: MM SCREENING DIGITAL BREAST TOMOSYNTHESIS, LEFT CLINICAL INFORMATION: Screening. Asymptomatic. The patient is status post right mastectomy in 2016. COMPARISON: Mammography: This study is compared with prior exams dating back to TECHNIQUE: Digital breast tomosynthesis is performed in both the craniocaudal and mediolateral oblique views along with computer-aided detection (CAD). Synthesized 2D images are generated from the tomosynthesis. FINDINGS: There are scattered areas of fibroglandular density (ACR BI-RADS breast composition Category b). There are no significant masses, abnormal calcifications, or other abnormalities. There are unchanged, benign calcifications in the upper outer quadrant of the left breast. There is a pacemaker in superior aspect of the left breast. MM/MM tomosynthesis screening LT IMPRESSION: No mammographic evidence of malignancy. ASSESSMENT: BI-RADS BI-RADS 2 - Benign Findings RECOMMENDATION: Routine annual mammography screening. 1 year F/U This examination should not preclude the clinical evaluation of a suspicious palpable abnormality. This patient's information was entered into a reminder system with a target due date for their next mammogram.
== END 2023-08-12 12:48 | disposition home or self-care (01) ==
LOC: HO.MAMMO 12:47
PROVIDERS: PCP Internal Medicine Medical Oncology; Visit Provider Internal Medicine Medical Oncology
DX: Z12.31 Encounter for screening mammogram for malignant neoplasm of breast (principal)
CPT/HCPCS: 77063; 77067

== ENCOUNTER → 2023-08-12 13:00 | Outpatient (BNV) | payer MEDICARE, SELFPAY ==
[2023-01-14 15:19] VITALS: BP 130/62; BP 134/66; BP 138/70; BMI 33.3
== END ==
PROVIDERS: PCP Internal Medicine Medical Oncology; Visit Provider Radiology Diagnostic Radiology
DX: Z12.31 Encounter for screening mammogram for malignant neoplasm of breast (principal)
CPT/HCPCS: 77063; 77067

== ENCOUNTER 2023-09-10 08:18 | Outpatient (REF) | payer MEDICARE, SELFPAY ==
[2023-01-14 15:19] VITALS: BP 130/62; BP 134/66; BP 138/70; BMI 33.3
--- NOTE | ~2023-09-10 | XR_ITS ---
EXAMINATION: XR CHEST CLINICAL INFORMATION: Chronic cough COMPARISON: Chest 07/23/2023 TECHNIQUE: 4 views of the chest were obtained. FINDINGS: There is increased opacity in the left lower lobe and lingula consistent with atelectasis and/or pneumonia. There is slight blunting of the left costophrenic angle suggestive of a small pleural effusion versus pleural thickening. Heart size is normal. No interstitial pulmonary edema. There are dual pacer electrodes in the right atrium and right ventricle. 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 Kyphoplasty changes are present at T11 and T12. XR/XR chest 4 views IMPRESSION: 1. Left lower lobe and lingular atelectasis and/or pneumonia. 2. Small left pleural effusion versus pleural thickening.
[2023-09-10 10:16] LABS: MANUAL DIFF FLAG NO
[2023-09-10 10:31] LABS: Basophils Absolute Auto 0.1 X10*3/uL (0.0-0.2); Basophils Percent Auto 0.4 % (0-2); Eosinophils Absolute Auto 0.1 X10*3/uL (0.0-0.4); Eosinophils Percent Auto 0.6 % (0-4); Hematocrit 34.2 % (37.0-47.0); Hemoglobin 11.5 g/dl (12.0-16.0); Imm Gran Abs Auto 0.51 X10*3/uL (0.00-0.03); Imm Gran Pct Auto 4.4 % (0.0-0.4); Lymphocytes Absolute Auto 0.9 X10*3/uL (1.2-4.9); Mean Corpuscular HGB Conc 33.6 g/dl (31.0-35.0); Mean Corpuscular Volume 92.2 fL (80.0-98.0); Mean Platelet Volume 10.8 fL (9.4-12.3); Monocytes Absolute Auto 0.9 X10*3/uL (0.1-1.2); Monocytes Percent Auto 7.7 % (2-11); NRBC Pct Auto 0.9 /100WBC (0.0-0.2); Neutrophils Absolute Auto 9.1 x10*3/uL (2.0-8.3); Neutrophils Percent Auto 78.9 % (45-73); Platelet Count 345 X10*3/uL (160-400); Red Blood Count 3.71 X10*6/uL (4.20-5.50); Red Cell Distribution Width 15.3 % (11.0-16.0); White Blood Count 11.5 X10*3/uL (4.8-10.8)
[2023-09-10 10:51] LABS: Alanine Aminotransferase 174 U/L (0-31); Alkaline Phosphatase 114 U/L (39-117); Anion Gap 16 (12-20); Aspartate Amino Transferase 180 U/L (5-31); Bilirubin Total 0.8 mg/dL (0.0-1.0); Blood Urea Nitrogen 18 mg/dL (9-16); Calcium 9.9 mg/dL (8.4-10.2); Carbon Dioxide 21 mmol/L (22-29); Chloride 103 mmol/L (96-108); Cholesterol 80 mg/dL (<200); Estimated Glomerular Filt Rate 54; Glucose Fasting 100 mg/dL (60-99); HDL Cholesterol 28 mg/dL (>40); LDL Cholesterol Calculated 40 mg/dL (<100); Potassium 4.1 mmol/L (3.3-5.1); Sodium 136 mmol/L (135-145); Total Protein 7.8 g/dL (6.5-8.0); Triglycerides 63 mg/dL (<150)
[2023-09-10 10:58] LABS: Free T4 (Free Thyroxine) 1.12 ng/dL (0.71-1.85); Thyroid Stimulating Hormone 0.06 uIU/mL (0.32-4.0)
[2023-09-10 11:12] LABS: Erythrocyte Sedimentation Rate 85 MM/HR (0-20)
== END 2023-09-10 08:19 | disposition home or self-care (01) ==
LOC: HO.HMGCX 08:18
PROVIDERS: PCP Internal Medicine Medical Oncology; Visit Provider Internal Medicine Medical Oncology
DX: R05.3 Chronic cough (principal); C81.90 Hodgkin lymphoma, unspecified, unspecified site; E66.9 Obesity, unspecified; I48.91 Unspecified atrial fibrillation; E03.9 Hypothyroidism, unspecified; E78.01 Familial hypercholesterolemia
CPT/HCPCS: 36415; 71048; 80053; 80061; 84439; 84443; 85025; 85652

== ENCOUNTER 2023-11-14 09:17 | Outpatient (AMB) | payer MEDICARE, SELFPAY ==
[2022-10-23 07:49] VITALS: BP 130/62; BP 138/70; BMI 33.3
[2023-01-14 15:19] VITALS: BP 130/62; BP 134/66; BP 138/70; BMI 33.3
--- NOTE | 2023-11-14 09:19 | MHC.OFFVIS ---
Vital Signs 11/14/23 09:24 Height 5 ft 5 in Weight 160 lb 7.944 oz BMI 26.7 BP 134/72 Blood Pressure Location Lt brachial Position Sitting Respiration 18 Pulse 76 Pulse Source Pulse Oximeter Pulse Oximetry (%) 95 Oxygen Delivery Method Room Air Intake Visit Reasons: sjogren's/CM Intake Note: Patient presents for sjogren's. Allergies amoxicillin [AMOXICILLIN] Allergy (Mild, Verified 11/14/23 09:23) hives, anaphylaxis, hives Penicillins [PENICILLINS] Allergy (Mild, Verified 11/14/23 09:23) hives Sulfa (Sulfonamide Antibiotics) [SULFA (SULFONAMIDE ANTIBIOTICS)] Allergy (Mild, Verified 11/14/23 09:23) HIVES Medication List - Last Reconciled 11/14/23 by Rosi Patel MD alendronate 70 mg PO MOREIRA apixaban (Eliquis) 5 mg PO BID aspirin 81 mg PO DAILY calcium carbonate 600 mg PO BID cholecalciferol (vitamin D3) 25 mcg PO DAILY ferrous sulfate 325 mg PO DAILY fluorometholone 0.1% 1 drp ophthalmic (eye) Q48H furosemide (Lasix) 20 mg PO Q OTHER DAY levothyroxine 100 mcg PO DAILY metoprolol tartrate 25 mg PO BID peg 400-propylene glycol (PF) 0.4-0.3 % (Systane (PF)) 1 drp ophthalmic (eye) 5XD PRN simvastatin 40 mg PO BEDTIME trazodone 150 mg PO BEDTIME HPI Comments Details: This is a 78-year-old female with Sjogren's syndrome with sicca symptoms who presents for follow-up. She was last seen by Dr. Castillo 11/2022. Earlier this year patient was admitted to the hospital with new onset heart failure likely brought on by new onset AFib. Patient was initially started on amiodarone then had a cardioversion with resolution of her symptoms. She also has a pacemaker. She states that she is doing reasonably well overall. No new complaints. Sicca symptoms controlled with Biotene lozenges and spray. Denies to have intermittent dry eyes. Any swollen or painful joints. On alendronate for osteoporosis. Denies any significant cough or shortness of breath. Denies any weight loss. [facility] Medical History Sjogren's syndrome with keratoconjunctivitis sicca Surgical History S/P TAVR (transcatheter aortic valve replacement) History of cardiac catheterization Social History Household Members: Spouse Household Members Other:: Daughter Housing: House Alcohol intake: current Alcohol intake frequency: holidays/special occasions only Patient Tobacco Use Status: Former Tobacco user Cigarette Packs Per Day: 0.25 Years Smoked: 1 e-Cigarette/Vaping Use: Never Used service: No Review of Systems Const Denies fever(s) and Denies weight loss Card Denies dyspnea Resp Denies cough and Denies dyspnea Musc Denies arthralgias, Denies joint swelling and Denies stiffness Physical Exam Vital Signs: Last Vital Signs Pulse 76 11/14/23 09:24 Resp 18 11/14/23 09:24 BP 134/72 11/14/23 09:24 Pulse Ox 95 11/14/23 09:24 Oxygen Delivery Method Room Air 11/14/23 09:24 BMI result Body Mass Index 26.7 Const General: cooperative, healthy appearing and comfortable Nutritional Appearance: overweight Orientation/consciousness: patient oriented x3 Limitations: no limitations HEENT Head: Yes normocephalic and Yes atraumatic Mouth: moist mucous membranes Resp Effort & Inspection: normal respiratory effort and able to speak in complete sentences Auscultation: clear to auscultation bilaterally Cardio Other: Pacemaker left upper chest Skin General skin exam: no rashes or lesions noted Neuro General: patient oriented x3 Extrem Other: No active synovitis Normal nailfold capillaroscopy Varicose veins both legs Assessment & Plan Assessment & Plan (1) Sjogren's syndrome with keratoconjunctivitis sicca: Comment: +++SSa +SSb ++RF (dry eyes, dry mouth) on cevimilene, cheanged to pilocarpine 12/2021(coverage issue) niot well tolerated Code(s): M35.01 - Sjogren syndrome with keratoconjunctivitis Category: Medical Plan: This is a 78-year-old female with Sjogren's syndrome who presents for follow-up. This is her 1st visit with me. She used to follow-up with Dr. Castillo. Patient has sicca symptoms seemed to be well controlled with Biotene spray and lozenges as well as eyedrops prescribed by her three dimensional map modeler I would like to order PFT to screen for underlying ILD/PAH Labs before next visit in 1 year Plan I spent 25 minutes reviewing patient's chart, evaluating patient, ordering diagnostic workup, counseling patient and documenting in the chart Orders: Orders PFT pulmonary function test Today M35. - Sjogren syndrome with keratoconjunctivitis, R06.02 - Shortness of breath Complete Blood Count Auto Diff 1 Year M32.9 - Systemic lupus erythematosus, unspecified C Reactive Protein 1 Year M32.9 - Systemic lupus erythematosus, unspecified Erythrocyte Sedimentation Rate 1 Year M32.9 - Systemic lupus erythematosus, unspecified Protein Electrophoresis, Serum 1 Year M32.9 - Systemic lupus erythematosus, unspecified Complement C3 1 Year M32.9 - Systemic lupus erythematosus, unspecified Comprehensive Met. Panel 1 Year M32.9 - Systemic lupus erythematosus, unspecified Immunofixation Pnl, Serum 1 Year M32.9 - Systemic lupus erythematosus, unspecified Anti DNA DS Antibody 1 Year M32.9 - Systemic lupus erythematosus, unspecified Complement C4 1 Year M32.9 - Systemic lupus erythematosus, unspecified Coding Level of Care Code Est Pt Level 4 (28962) Diagnoses Sjogren's syndrome with keratoconjunctivitis sicca M35.
--- OUTSIDE RECORDS SUMMARY | 2023-11-14 09:19 | XMS_ITS | Continuity of Care Document ---
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 Name Role Phone Demetrius Cote MD Primary Care Physician [phone] Encounter [facility] Date(s): 04/24/21 - 05/24/21 [facility] [address] [place] [id number] [place] Allergies, Adverse Reactions, Alerts Substance Reaction Severity Status amoxicillin hives Active penicillins hives Active sulfa drugs Active Immunizations Given and Recorded Vaccine Date Status Refusal Reason pneumococcal 23-valent vaccine 1 10/14/11 Given 1Early/Late Reason: Nursing Judgment Medications alendronate 70 mg oral tablet 1 tablet = 70 mg, By Mouth, Every week, # 4 tablet, 0 Refills, Maintenance, 04/22/20 11:30:00 EST, Tablet, Partial fill upon patient request if the prescription is for a schedule II opioid drug. Start Date: 04/22/20 Status: Ordered anastrozole 1 mg oral tablet 1 tablet = 1 mg, By Mouth, Daily, # 90 tablet, 3 Refills, Maintenance, 02/23/19 10:01:19 EDT, Tablet Start Date: 02/23/19 Status: Ordered cevimeline 30 mg oral capsule 1 capsule = 30 mg, By Mouth, 3 times a day, # 90 capsule, 0 Refills, Maintenance, 04/22/20 11:33:00EST, Capsule, Partial fill upon patient request if the prescription is for a schedule II opioid drug. Start Date: 04/22/20 Status: Ordered Eliquis 5 mg oral tablet 1 tablet = 5 mg, By Mouth, 2 times a day, # 180 tablet, 3 Refills, Maintenance, 04/24/21 9:50:00 EST, Tablet, [id number], 158, cm, 11/14/20 9:57:00 EDT, Height, 83, kg, 04/22/20 11:36:00 EST, Dry Weight Start Date: 04/24/21 Stop Date: 04/19/22 Status: Ordered fluorometholone 0.1% ophthalmic suspension 1 drops, Eyes, Both, 4 times a day, 0 Refills, Maintenance, 05/28/16 7:47:47 Start Date: 05/28/16 Status: Ordered levothyroxine 0.1 mg oral tablet 1 tablet = 0.1 mg, By Mouth, Daily, # 30 tablet, 0 Refills, Maintenance, Tablet Start Date: 10/12/11 Status: Ordered metoprolol 25 mg oral tablet 25 mg, 1, tablet, By Mouth, 2 times a day, # 60 tablet, Refills 0, Maintenance, 04/22/20 11:29:00 EST, Partial fill upon patient request if the prescription is for a schedule II opioid drug. Start Date: 04/22/20 Status: Ordered Refresh PM - ointment 1 application, Eyes, Both, Daily at bedtime, PRN for dry eyes, # 3.5 Gm, 0 Refills, Maintenance, 11/08/14 13:43:28, Ointment Start Date: 11/08/14 Status: Ordered simvastatin 40 mg oral tablet 1 tablet = 40 mg, By Mouth, Daily at bedtime, # 30 tablet, 0 Refills, Maintenance, Tablet Start Date: 10/17/11 Stop Date: 11/16/11 Status: Ordered Systane ophthalmic solution 1 drops, Eyes, Both, 3 times a day, PRN as needed for dry eyes, 0 Refills, Maintenance, 11/08/14 13:42:36 Start Date: 11/08/14 Status: Ordered traZODone 50 mg oral tablet 25 mg, 0.5, tablet, By Mouth, Daily at bedtime, # 15 tablet, Refills 0, Maintenance, 04/22/20 11:32:00 EST, Partial fill upon patient request if the prescription is for a schedule II opioid drug. Start Date: 04/22/20 Status: Ordered Problem List Condition Effective Dates Status Health Status Inform ant Hyperlipidemia(Confirmed) Active Osteoarthritis(Confirmed) Active PAF (paroxysmal atrial fibrillation)(Confirmed) Active Psoriasis(Confirmed) Active Heart block AV second degree(Confirmed) Active TIA (transient ischemic attack)(Confirmed) Active Social History Social History Type Response Smoking Status Former smoker; Other : quit in my teens and was never a heavy smoker ; entered on: 06/23/15 Sex
--- OUTSIDE RECORDS SUMMARY | 2023-11-14 09:19 | XMS_ITS | Continuity of Care Document ---
Author Organization [facility] Address [address] [place] [address]- Care Team Providers Care Industrial Millwright Name Role Phone Demetrius Cote MD Primary Care Physician [phone] Encounter [place] Date(s): 01/24/22 - 02/23/22 [facility] [address] [place] [address]- Attending Physician: Raúl Enrique Admitting Physician: Raúl Enrique Referring Physician: Raúl Enrique Allergies, Adverse Reactions, Alerts Substance Reaction Severity [...] 3 Refills, Maintenance, 04/24/21 9:50:00 EST, Tablet, [facility] #[id number], 158, cm, 11/14/20 9:57:00 EDT, Height, 83, [...] opioid drug. Start Date: 04/22/20 Status: Ordered Readi-Cat 2 oral suspension 450 mL = 9 Gm, By Mouth, 2 times a day, Please dispense two 450 mL bottles for a total dose that equals 900 mLs. Drink first bottle [address] and then drink second bottle [address] scan,# 2 each, 0 Refills, Maintenance, 06/06/21 10:45:00... 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
--- OUTSIDE RECORDS SUMMARY | 2023-11-14 09:19 | XMS_ITS | Continuity of Care Document ---
Author Organization [facility] Address [address] [place] [address]- Care Team Providers Care Machine Setter Sheet Metal Name Role Phone Demetrius Cote MD Primary Care Physician Encounter [facility] [place] Date(s): 05/05/20 - 06/04/20 [facility] [address] [place] [address]- Attending Physician: Raúl Enrique Admitting Physician: AdmtrRaúl Referring Physician: AdmtrRaúl Allergies, Adverse Reactions, Alerts Substance Reaction Severity Status amoxicillin hives Active sulfa drugs Active penicillins hives Active Immunizations Given and Recorded Vaccine Date [...] day, # 180 tablet, 3 Refills, Maintenance, 08/20/19 15:36:00 EDT, Tablet, [facility] #[id number], 157.48, cm, 07/14/19 9:54:00 EDT, Height, 80, kg, 07/14/19 9:54:00 EDT, Dry Weight Start Date: 08/20/19 Stop Date: 08/14/20 Status: Ordered fluorometholone 0.1% ophthalmic suspension 1 [...]
--- OUTSIDE RECORDS SUMMARY | 2023-11-14 09:19 | XMS_ITS | Continuity of Care Document ---
Author Organization [facility] Address [address] [place] [address]- Care Team Providers Care Marketing Technology Coordinator Name Role Phone Demetrius Cote MD Primary Care Physician [place] [facility] [place] [id number] Date(s): 02/04/20 - 03/05/20 [facility] [address] [place] [address]- [facility] Attending Physician: Raúl Enrique Admitting Physician: AdmtrRaúl Referring Physician: AdmtrRaúl Allergies, Adverse Reactions, Alerts Substance Reaction Severity Status amoxicillin hives Active penicillins hives Active sulfa drugs Active Immunizations Given and Recorded Vaccine Date Status Refusal Reason pneumococcal 23-valent vaccine 1 10/14/11 Given 1Early/Late Reason: Nursing Judgment Medications anastrozole 1 mg oral tablet 1 tablet = 1 mg, By Mouth, Daily, # 90 tablet, 3 Refills, Maintenance, 02/23/19 10:01:19 EDT, Tablet Start Date: 02/23/19 Status: Ordered atenolol 25 mg oral tablet = 25 mg, By Mouth, 2 times a day, 0 Refills, Maintenance, 07/30/14 9:44:08, Tablet Start Date: 07/30/14 Status: Ordered Eliquis 5 mg oral tablet 1 tablet = 5 mg, By Mouth, 2 times a day, # 180 tablet, 3 Refills, Maintenance, 08/20/19 15:36:00 EDT, Tablet, [facility] #[id number], 157.48, cm, 07/14/19 9:54:00 EDT, Height, 80, kg, 07/14/19 9:54:00 EDT, Dry Weight Start Date: 08/20/19 Stop Date: 08/14/20 Status: Ordered Evoxac 30 mg oral capsule 1 capsule = 30 mg, By Mouth, 3 times a day, # 270 capsule, 0 Refills, Maintenance, Capsule Start Date: 10/12/11 Status: Ordered fluorometholone 0.1% ophthalmic suspension 1 drops, Eyes, Both, 4 times a day, 0 Refills, Maintenance, 05/28/16 7:47:47 Start Date: 05/28/16 Status: Ordered levothyroxine 0.1 mg oral tablet 1 tablet = 0.1 mg, By Mouth, Daily, # 30 tablet, 0 Refills, Maintenance, Tablet Start Date: 10/12/11 Status: Ordered Lorazepam 0 Refills, Maintenance, 09/27/16 11:08:46 Start Date: 09/27/16 Status: Ordered Refresh PM - ointment 1 [...] 11/08/14 13:42:36 Start Date: 11/08/14 Status: Ordered Social History Social History Type Response Smoking Status Former smoker; Other : quit in my teens and was never a heavy smoker ; entered on: 06/23/15 Sex
--- OUTSIDE RECORDS SUMMARY | 2023-11-14 09:19 | XMS_ITS | Continuity of Care Document ---
Author Organization [facility] Address [address] [place] [address]- Care Team Providers Care Sample Processor Name Role Phone Demetrius Cote MD Primary Care Physician [phone] [place] [facility] [place] Date(s): 04/22/20 - 04/23/[address] [address]- Discharge Disposition: A-D/C Home Attending Physician: Gianni Thorne MD Admitting Physician: Gianni Thorne MD Referring Physician: Gianni Thorne MD Allergies, Adverse Reactions, Alerts Substance Reaction Severity [...] 3 Refills, Maintenance, 08/20/19 15:36:00 EDT, Tablet, [facility] #[id number], 157.48, cm, 07/14/19 9:54:00 EDT, Height, 80, [...] opioid drug. Start Date: 04/22/20 Status: Ordered metoprolol 25 mg oral tablet 25 mg, Tablet, By Mouth, 04/22/20 21:00:00 EST Start Date: 04/22/20 Stop Date: 04/22/20 Status: Completed Percocet-5 Tablet 1 tablet, Tablet, By Mouth, Every 6 hours, PRN for Pain , Severe, Routine, 04/22/20 18:03:00 EST Start Date: 04/22/20 Stop Date: 04/23/20 Status: Discontinued Refresh PM - ointment 1 application, Eyes, [...] degree(Confirmed) Active TIA (transient ischemic attack)(Confirmed) Active Results Radiology Reports * Exam Date Time Procedure Performing Provider Status 04/23/20 6:01 AM Chest 2 Views Frontal and Lat Simin Field i; Jayla (Verified) Notes: (Chest 2 Views Frontal and Lat) Reason For Exam: Postop RESULT: Chest 2 Views Frontal and Lat Chest 2 Views Frontal and Lat Reason: Postop; Clinical Question(s): Line Placement; Pneumothorax; Special Instructions: Patient may go unmonitored. Please keep film at back desk; Order Comment: s p upgrade to BIV pacer COMPARISON: Multiple prior chest x-rays, the most recent of which is dated 04/22/2020. FINDINGS: LINES AND TUBES: A pacer is seen with power pack overlying the left upper chest. LUNGS AND PLEURA: Clear lungs. Normal pulmonary vascularity. No pleural effusion. No pneumothorax. HEART, MEDIASTINUM AND BHARATI: Heart is normal in size. Normal upper mediastinal and hilar contour. BONES AND SOFT TISSUES: The patient is status post vertebroplasty of 2 compression fractures the lower thoracic spine. IMPRESSION: No acute pulmonary process. WSN: [id number] Ordering Physician: Chidi Christie Dictated By: Senia Siegel MD Dictated Date/Time: 04/23/20 1:30 pm Reviewed By: Senia Siegel MD Signed By: Senia Siegel MD Signed Date/Time: 04/23/20 1:30 pm Transcribed By: JULIO Transcribed Date/Time: 04/23/20 1:28 pm * Exam Date Time Procedure Performing Provider Status 04/22/20 7:15 PM Chest Portable Anastacia Stubbs; Au th (Verified) Notes: (Chest Portable) Reason For Exam: Line Placement RESULT: Chest Portable Chest Portable INDICATION/CLINICAL QUESTION: Reason: Line Placement; Clinical Question(s): Pneumothorax; Order Comment: s p upgrade to BIV pacer / Pneumothorax TECHNIQUE: AP chest 1844 hours 04/22/2020. COMPARISON: 10/04/2015. FINDINGS: LINES AND TUBES: Satisfactory positioning of right atrial, right ventricular, and left ventricular pacemaker leads.. LUNGS AND PLEURA: RIGHT CHEST: The lung is clear and there is no effusion. LEFT CHEST: The lung is clear and there is no effusion or pneumothorax.. HEART AND MEDIASTINAL CONTOURS: Normal. BONES AND SOFT TISSUES: No acute abnormality.. IMPRESSION: 1. Satisfactory position of pacemaker leads with no pneumothorax. 2. The lungs are clear. WSN: [id number] Ordering Physician: Chidi Christie Dictated By: Rene Joshi MD Dictated Date/Time: 04/22/20 7:21 pm Reviewed By: Rene Joshi MD Signed By: Rene Joshi MD Signed Date/Time: 04/22/20 7:21 pm Transcribed By: JULIO Transcribed Date/Time: 04/22/20 7:20 pm Vital Signs Most recent to oldest [Reference Range]: 1 2 3 Height 158 cm (04/23/20 8:26 AM) 158 cm (04/23/20 2:44 AM) 158 cm (04/22/20 7:53 PM) Weight 80.2 kg (04/23/20 2:44 AM) 83 kg (04/22/20 11:50 AM) 83 kg (04/22/20 11:36 AM) Oxygen Saturation [94-100 %] 99 % (04/23/20 8:26 AM) 95 % (04/23/20 2:44 AM) 92 % *L* (04/22/20 7:53 PM) Pulse Rate [55-90 bpm] 73 bpm (04/23/20 8:26 AM) 66 bpm (04/23/20 2:44 AM) 92 bpm *H* (04/22/20 8:37 PM) Body Mass Index [18.5-24.99] 32.13 *>HHI* (04/23/20 2:44 AM) Blood Pressure [90-138/55-84 mm Hg] 135/50mm Hg (04/23/20 8:26 AM) 155/44mm Hg *H* (04/23/20 2:44 AM) 145/58mm Hg *H* (04/22/20 8:37 PM) Respiratory Rate [16-30 br/min] 18 br/min (04/23/20 8:26 AM) 18 br/min (04/23/20 7:30 AM) 18 br/min (04/23/20 6:20 AM) Temperature [96.8-100.4 DegF] 98.3 DegF (04/23/20 8:26 AM) 98.6 DegF (04/23/20 2:44 AM) 98.3 DegF (04/22/20 7:53 PM) Mode of Delivery (Oxygen) Room air (04/23/20 8:26 AM) Room air (04/23/20 2:44 AM) Room air (04/22/20 7:53 PM) Blood pressure sites Leg, right (04/23/20 8:26 AM) Leg, left (04/23/20 2:44 AM) Arm, left (04/22/20 7:53 PM) Temperature Route Oral (04/23/20 8:26 AM) Oral (04/23/20 2:44 AM) Oral (04/22/20 7:53 PM) Dry Weight 83 kg (04/22/20 11:36 AM) Weight Obtained Via Bed scale (04/23/20 2:44 AM) Social History Social History Type Response Smoking Status Former smoker; Other : quit in my teens and was never a heavy smoker ; entered on: 06/23/15 Sex
--- OUTSIDE RECORDS SUMMARY | 2023-11-14 09:19 | XMS_ITS | Continuity of Care Document ---
Author Organization [facility] Address [address] [place] [address]- Care Team Providers Care Tree Specialist Name Role Phone Demetrius Cote MD Primary Care Physician Encounter [place] Date(s): 07/24/23 - 08/23/23 [facility] [address] [place] [address]- [place] Allergies, Adverse Reactions, Alerts Substance Reaction Severity Status amoxicillin hives Active sulfa drugs Active penicillins hives Active Immunizations Given and Recorded Vaccine Date Status Refusal Reason influenza virus vaccine, inactivated 02/16/22 Alistair rded influenza virus vaccine, inactivated 02/25/21 Alistair rded influenza virus vaccine, inactivated 03/07/17 Alistair rded influenza virus vaccine, inactivated 03/14/16 Alistair rded SARS-CoV-2 (COVID-19) mRNA-1273 vaccine 03/10/21 R ecorded SARS-CoV-2 (COVID-19) mRNA BNT-162b2 vac 03/09/21 Recorded SARS-CoV-2 (COVID-19) mRNA BNT-162b2 vac 06/28/20 Recorded SARS-CoV-2 (COVID-19) mRNA BNT-162b2 vac 06/07/20 Recorded Zoster Vaccine Live 11/20/16 Recorded pneumococcal 23-valent vaccine 1 10/14/11 Given 1Early/Late Reason: Nursing Judgment Medications alendronate 70 mg oral tablet 1 tablet = 70 mg, By Mouth, Every week, # 4 tablet, 0 Refills, Maintenance, 04/22/20 11:30:00 EST, Tablet, Partial fill upon patient request if the prescription is for a schedule II opioid drug. Start Date: 04/22/20 Status: Ordered amiodarone 200 mg oral tablet 200 mg, 1, tablet, By Mouth, Daily, # 90 tablet, Refills 0, Maintenance, 08/08/23 13:43:00 EDT, Partial fill upon patient request if the prescription is for a schedule II opioid drug. Start Date: 08/08/23 Status: Ordered aspirin 81 mg oral delayed release tablet 81 mg, 1, tablet, By Mouth, Daily, # 30 tablet, Refills 11, Tot. Refills 11, Maintenance, 08/21/22 14:15:00 EDT, Route to Pharmacy Electronically, [facility]ORE #[id number], Partial fill upon patient request if the prescription is for a schedule II... Start Date: 08/21/22 Status: Ordered Calcium 600 +D By Mouth, 0 Refills, Maintenance, 08/08/23 13:42:00 EDT, Partial fill upon patient request if the prescription is for a schedule II opioid drug. Start Date: 08/08/23 Status: Ordered Eliquis 5 mg oral tablet 1 tablet, By Mouth, 2 times a day, # 180 tablet, 0 Refills, Maintenance, 04/05/23 9:23:00 EST, Rule. [facility]ORE #[id number], 160, cm, 10/17/22 14:13:00 EDT, Height, 80, kg, 08/20/22 8:11:00 EDT, Dry Weight Start Date: 04/05/23 Status: Ordered Eliquis 5 mg oral tablet 1 tablet, By Mouth, 2 times a day, # 180 tablet, 3 Refills, Maintenance, 07/04/23 7:52:00 EST, Rule. [facility]ORE #[id number], 160, cm, 10/17/22 14:13:00 EDT, Height, 80, kg, 08/20/22 8:11:00 EDT, Dry Weight Start Date: 07/04/23 Status: Ordered FeroSul 325 mg oral tablet TAKE 1 TABLET BY MOUTH EVERY DAY Start Date: 05/25/22 Status: Ordered fluorometholone 0.1% ophthalmic suspension 1 drops, Eyes, Both, 4 times a day, 0 Refills, Maintenance, 05/28/16 7:47:47 Start Date: 05/28/16 Status: Ordered furosemide 20 mg oral tablet 1, capsule, By Mouth, Once, # 1 tablet, Refills 0, Maintenance, 08/08/23 13:42:00 EDT, Partial fillupon patient request if the prescription is for a schedule II opioid drug. Start Date: 08/08/23 Status: Ordered levothyroxine 0.1 mg oral tablet [...] opioid drug. Start Date: 04/22/20 Status: Ordered Restasis 0.05% ophthalmic emulsion 1 drops, Every 12 hours, 0 Refills, Maintenance, 08/08/23 13:44:00 EDT, Partial fill upon patient request if the prescription is for a schedule II opioid drug. Start Date: 08/08/23 Status: Ordered simvastatin 40 mg oral tablet 1 tablet = 40 mg, By Mouth, Daily at bedtime, # 30 tablet, 0 Refills, Maintenance, Tablet Start Date: 10/17/11 Stop Date: 11/16/11 Status: Ordered traZODone 150 mg oral tablet 1 tablet = 150 mg, By Mouth, Daily at bedtime, # 30 tablet, 0 Refills, Maintenance, 08/08/23 13:39:00 EDT, Tablet, Partial fill upon patient request if the prescription is for a schedule II opioid drug. Start Date: 08/08/23 Status: Ordered traZODone 50 mg oral tablet 25 mg, 0.5, tablet, By Mouth, Daily at bedtime, # 15 tablet, Refills 0, Maintenance, 04/22/20 11:32:00 EST, Partial fill upon patient request if the prescription is for a schedule II opioid drug. Start Date: 04/22/20 Status: Ordered Vitamin D3 oral tablet 1 tablet = 10 mcg, By Mouth, Daily, 0 Refills, Maintenance, 05/25/22 11:34:00 EST, Partial fill upon patient request if the prescription is for a schedule II opioid drug. Start Date: 05/25/22 Status: Ordered Problem List Condition Confirmation Course [...] on: 06/23/15 Sex Patient Care team information Care Team Personnel Name: Demetrius Cote MD Position: [facility] Physician - Oncology Member Role: PCP Address: Address: [address] [place] [address] [address] Demetrius Cote III, MD [place], [place] [address] Name: Lo Wheeler Position: [facility] RN Member Role: Primary Care Nurse Care Team Related Persons Name: WENDY HATCH Address: home [address] [place] [address] Name: YAQUELIN HATCH Address: home [address] [place] [address]
--- OUTSIDE RECORDS SUMMARY | 2023-11-14 09:19 | XMS_ITS | Continuity of Care Document ---
Author Organization [facility] Address [address] [place] [address]- Care Team Providers Care Automobile Appraiser Name Role Phone Demetrius Cote MD Primary Care Physician [place] [facility] [place] [id number] Date(s): 03/10/21 - 04/09/21 [facility] [address] [place] [address]- Attending Physician: Raúl Enrique Admitting Physician: Raúl Enrique Referring Physician: AdmtrRaúl Allergies, Adverse Reactions, Alerts [...] day, # 180 tablet, 3 Refills, Maintenance, 07/20/20 9:02:00 EDT, Tablet, [facility] #[id number], 158, cm, 04/23/20 8:26:00 EST, Height, 83, kg, 04/22/20 11:36:00 EST, Dry Weight Start Date: 07/20/20 Stop Date: 07/15/21 Status: Ordered fluorometholone 0.1% ophthalmic suspension 1 [...]
--- OUTSIDE RECORDS SUMMARY | 2023-11-14 09:19 | XMS_ITS | Continuity of Care Document ---
Author Organization [facility] Address [address] [place] [address]- Care Team Providers Care Carpet Jack Name Role Phone Kera FAIR, Demetrius Alvarado Primary Care Physician [phone] [place] [facility] [place] Date(s): 07/17/21 - 08/16/21 [facility] [address] [place] [address]- [place] Allergies, Adverse Reactions, Alerts Substance Reaction [...] 3 Refills, Maintenance, 04/24/21 9:50:00 EST, Tablet, [facility] #[id number], 158, cm, 11/14/20 9:57:00 EDT, Height, 83, [...] Status Health Status Inform ant Hyperlipidemia(Confirmed) Active Obese class I(Confirmed) Active Osteoarthritis(Confirmed) Active PAF (paroxysmal atrial fibrillation)(Confirmed) Active Psoriasis(Confirmed) Active Heart block AV second degree(Confirmed) Active TIA (transient ischemic attack)(Confirmed) Active Social History Social History Type Response Smoking Status Former smoker; Other : quit in my teens and was never a heavy smoker ; entered on: 06/23/15 Sex
--- OUTSIDE RECORDS SUMMARY | 2023-11-14 09:19 | XMS_ITS | Continuity of Care Document ---
Author Organization [facility] Address [address] [place] [address]- Care Team Providers Care Animal Care Specialist Name Role Phone Demetrius Cote MD Primary Care Physician [phone] [place] [facility] [place] 03/[place]/20 [facility] [address] [place] [address]- [facility] [place] Attending Physician: Gianni Thorne MD Admitting Physician: Gianni Thorne MD Referring Physician: Demetrius Cote MD Allergies, Adverse Reactions, Alerts Substance Reaction [...] 3 Refills, Maintenance, 08/20/19 15:36:00 EDT, Tablet, [facility] #[id number], 157.48, cm, 07/14/19 9:54:00 EDT, Height, 80, [...]
--- OUTSIDE RECORDS SUMMARY | 2023-11-14 09:19 | XMS_ITS | Continuity of Care Document ---
Author Organization [facility] Address [address] [place] [address]- Care Team Providers Care Waste Collector Name Role Phone Demetrius Cote MD Primary Care Physician [phone] [id number] Date(s): 07/08/19 - 09/13/19 [facility] [address] [place] [address]- [facility] Discharge Disposition: A-D/C Home Attending Physician: Amarilis Fishman MD Admitting Physician: Amarilis Fishman MD Referring Physician: Demetrius Cote MD Allergies, [...] 3 Refills, Maintenance, 08/20/19 15:36:00 EDT, Tablet, [facility] #[id number], 157.48, cm, 07/14/19 9:54:00 EDT, Height, 80, [...] 11/08/14 13:42:36 Start Date: 11/08/14 Status: Ordered Vital Signs Most recent to oldest [Reference Range]: 1 Height 157.48 cm (07/14/19 9:54 AM) Weight 80.0 kg (07/14/19 9:54 AM) Pulse Rate [55-90 bpm] 74 bpm (07/14/19 9:54 AM) Body Mass Index [18.5-24.99] 32.26 *>HHI* (07/14/19 9:54 AM) Blood Pressure [90-138/55-84 mm Hg] 137/ 78mm Hg (07/14/19 9:54 AM) Temperature [96.8-100.4 DegF] 97.7 DegF (07/14/19 9:54 AM) Blood pressure sites Arm, left (07/14/19 9:54 AM) Temperature Route Temporal (07/14/19 9:54 AM) Dry Weight 80.0 kg (07/14/19 9:54 AM) Weight Obtained Via Standing scale (07/14/19 9:54 AM) Dry Weight Obtained Via Standing scale (07/14/19 9:54 AM) Social History Social History Type Response Smoking Status Former smoker; Other : quit in my teens and was never a heavy smoker ; entered on: 06/23/15 Sex
--- OUTSIDE RECORDS SUMMARY | 2023-11-14 09:19 | XMS_ITS | Continuity of Care Document ---
Author Organization [facility] Address [address] [place] [address]- Care Team Providers Care Warehouse Team Member Name Role Phone Demetrius Cote MD Primary Care Physician [place] [facility] [place]s): 07/20/20 - 08/19/20 [facility] [address] [place] [address]- Allergies, Adverse Reactions, Alerts Substance Reaction Severity [...] 3 Refills, Maintenance, 07/20/20 9:02:00 EDT, Tablet, [facility] #[id number], 158, cm, 12/19/20 8:26:00 EST, Height, 83, kg, 04/22/20 11:36:00 [...]
--- OUTSIDE RECORDS SUMMARY | 2023-11-14 09:19 | XMS_ITS | Continuity of Care Document ---
Author Organization [facility] Address [address] [place] [address]- Care Team Providers Care Direct Support Worker Name Role Phone Demetrius Cote MD Primary Care Physician [id number] Date(s[facility] 12/10/20 - 04/09/21 [facility] [address] [place] [address]- Attending Physician: Benjy Rosas MD Admitting Physician: Benjy Rosas MD Referring Physician: Demetrius Cote MD Allergies, [...] 3 Refills, Maintenance, 07/20/20 9:02:00 EDT, [id number], 158, cm, 04/23/20 8:26:00 EST, Height, 83, [...]
--- OUTSIDE RECORDS SUMMARY | 2023-11-14 09:19 | XMS_ITS | Continuity of Care Document ---
Author Organization [facility] Address [address] [place] [address]- Care Team Providers Care Automatic Machines Supervisor Name Role Phone Kera FAIR, Demetrius Alvarado Primary Care Physician En[place] [facility] [place] Date(s): 06/19/21 - 07/19/21 [facility] [address] [place] [address]- [place] Allergies, Adverse Reactions, Alerts Substance Reaction [...] 3 Refills, Maintenance, 04/24/21 9:50:00 EST, Tablet, [facility] #[id number], 158, cm, 11/14/20 9:57:00 EDT, Height, 83, [...]
--- OUTSIDE RECORDS SUMMARY | 2023-11-14 09:19 | XMS_ITS | Continuity of Care Document ---
Author Organization [facility] Address [address] [place] [id number]- Care Team Providers Care Director Of Accounts Payable Name Role Phone Demetrius Cote MD Primary Care Physician [phone] [facility] [place] Date(s): 10/10/22 - 02/07/23 [facility] [address] [place] [address]- Attending Physician: Gianni Thorne MD Admitting Physician: [...] opioid drug. Start Date: 04/22/20 Status: Ordered aspirin 81 mg oral delayed release tablet 81 mg, 1, tablet, By Mouth, Daily, # 30 tablet, Refills 11, Tot. Refills 11, Maintenance, 08/21/22 14:15:00 EDT, Route to Pharmacy Electronically, [facility] #[id number], Partial fill upon patient request if the prescription is for a schedule II... Start Date: 08/21/22 Status: Ordered Eliquis 5 mg oral tablet 1 tablet, By Mouth, 2 times a day, # 180 tablet, 3 Refills, Maintenance, 04/10/22 8:09:00 EST, [facility] #[id number], 158, cm, 01/24/22 7:58:00 EDT, Height, 79.5, kg, 09/06/21 13:58:00 EDT, DryWeight Start Date: 04/10/22 Status: Ordered FeroSul 325 mg oral tablet [...] opioid drug. Start Date: 04/22/20 Status: Ordered simvastatin 40 mg oral tablet 1 tablet = 40 mg, By Mouth, Daily at bedtime, # 30 tablet, 0 Refills, Maintenance, Tablet Start Date: 10/17/11 Stop Date: 11/16/11 Status: Ordered traZODone 50 mg oral tablet [...] Team Personnel Name: Demetrius Cote MD Position: [facility] Physician - Oncology Member Role: PCP Address: Address: [address] [place] [address] [address] Demetrius Cote III, [place] [address]- Name: Lo Wheeler Position: [facility] RN Member Role: Primary Care Nurse Care Team Related Persons Name: WENDY HATCH Address: home [address] [place] [address] Name: YAQUELIN HATCH Address: home [address] [place] [address]
--- OUTSIDE RECORDS SUMMARY | 2023-11-14 09:19 | XMS_ITS | Continuity of Care Document ---
Author Organization [facility] Address [address] [place] [address]- Care Team Providers Care Hair Machine Operator Name Role Phone Demetrius Cote MD Primary Care Physician Encounter [facility] Date(s): 06/08/19 - 06/18/19 [facility] [address] [place] [id number]- [facility] Attending Physician: Raúl Enrique Admitting Physician: AdmRaúl arroyo Referring Physician: AdmtrRaúl Allergies, Adverse Reactions, Alerts [...] day, # 180 tablet, 3 Refills, Maintenance, 08/15/18 14:45:09 EDT, Tablet Start Date: 08/15/18 Stop Date: 08/10/19 Status: Ordered Evoxac 30 mg oral capsule [...]
--- OUTSIDE RECORDS SUMMARY | 2023-11-14 09:19 | XMS_ITS | Continuity of Care Document ---
Author Organization [facility] Address [address] [place] [id number]- Care Team Providers Care Material Expeditor Name Role Phone Demetrius Cote MD Primary Care Physician [place] [facility] [place] 02/12[place]20 - 03/13/20 [facility] [address] [place] [id number] [[email or web address]] Allergies, Adverse Reactions, Alerts Substance Reaction Severity [...] 3 Refills, Maintenance, 08/20/19 15:36:00 EDT, Tablet, [facility] #[id number], 157.48, cm, 07/14/19 9:54:00 EDT, Height, 80, [...] 11/08/14 13:42:36 Start Date: 11/08/14 Status: Ordered Problem List Condition Effective Dates [...]
--- OUTSIDE RECORDS SUMMARY | 2023-11-14 09:19 | XMS_ITS | Continuity of Care Document ---
Author Organization [facility] Address [address] [place] [id number]- Care Team Providers Care Steel Plate Caulker Name Role Phone Demetrius Cote MD Primary Care Physician Encounter [facility] [place] Date(s): 12/30/21 - 04/29/22 [facility] [address] [place], [place] [id number]- Attending Physician: Gianni Thorne MD Admitting Physician: [...] 3 Refills, Maintenance, 04/24/21 9:50:00 EST, Tablet, [facility] #[id number], 158, cm, 11/14/20 9:57:00 EDT, Height, 83, kg, 04/22/20 11:36:00 EST, Dry Weight Start Date: 04/24/21 Stop Date: 04/19/22 Status: Ordered Eliquis 5 mg oral tablet 1 tablet, By Mouth, 2 times a day, # 180 tablet, 3 Refills, Maintenance, 04/10/22 8:09:00 EST, [id number], 158, cm, 01/24/22 7:58:00 EDT, Height, 79.5, kg, 09/06/21 13:58:00 EDT, DryWeight Start Date: 04/10/22 Status: Ordered fluorometholone 0.1% ophthalmic suspension 1 [...] Team Personnel Name: Demetrius Cote MD Position: [facility] Oncology MD Member Role: PCP Address: Address: [address] [place] [address] [address] Demetrius Cote III, [place] [address] Name: Lizabeth Manzano [place] Position: [facility] Ambulatory Clinician Member Role: Primary Care Nurse Care Team Related Persons Name: WENDY HATCH Address: [address] [place] [address] Name: YAQUELIN HATCH Address: home [address] [place] [address]
--- OUTSIDE RECORDS SUMMARY | 2023-11-14 09:19 | XMS_ITS | Continuity of Care Document ---
Author Organization [facility] Address [address] [place] [id number]- Care Team Providers Care Sr. Manager Name Role Phone Demetrius Cote MD Primary Care Physician En[place] [facility] Date(s): 01/29/20 - 02/28/20 [facility] [address] [place] [id number]- [facility] Allergies, Adverse Reactions, Alerts Substance Reaction Severity [...] 3 Refills, Maintenance, 08/20/19 15:36:00 EDT, Tablet, [facility] #[id number], 157.48, cm, 07/14/19 9:54:00 EDT, Height, 80, [...]
--- OUTSIDE RECORDS SUMMARY | 2023-11-14 09:19 | XMS_ITS | Continuity of Care Document ---
Author Organization [facility] ter Address [address] [place] [id number]- Care Team Providers Care Green Inspector Name Role Phone Kera FAIR, Demetrius Alvarado Primary Care Physician Encounter [facility] Date(s): 06/26/22 - 06/26/[address] [address] Discharge Disposition: A-D/C Home Attending Physician: Jose Gambino MD Admitting Physician: Jose Gambino MD Referring Physician: Jose Gambino MD Allergies, Adverse Reactions, Alerts Substance Reaction [...] EDT, Tablet Start Date: 02/23/19 Status: Ordered calcium carbonate 600 mg oral tablet TAKE 1 TABLET BY MOUTH TWICE DAILY Start Date: 05/25/22 Status: Ordered cevimeline 30 mg oral capsule [...] 3 Refills, Maintenance, 04/24/21 9:50:00 EST, Tablet, [facility][id number], 158, cm, 11/14/20 9:57:00 EDT, Height, 83, kg, 04/22/20 11:36:00 EST, Dry Weight Start Date: 04/24/21 Stop Date: 04/19/22 Status: Ordered Eliquis 5 mg oral tablet 1 tablet, By Mouth, 2 times a day, # 180 tablet, 3 Refills, Maintenance, 04/10/22 8:09:00 EST, [facility] #[id number], 158, cm, 01/24/22 7:58:00 EDT, Height, 79.5, [...] Active TIA (transient ischemic attack) Confirmed Active Vital Signs Most recent to oldest [Reference Range]: 1 2 3 Height 160 cm (06/26/22 6:35 AM) 160 cm (06/26/22 6:35 AM) Weight 80.2 kg (06/26/22 6:35 AM) 80.2 kg (06/26/22 6:35 AM) Oxygen Saturation [94-100 %] 93 % *L* (06/26/22 1:50 PM) 98 % (06/26/22 1:30 PM) 91 % *L* (06/26/22 1:15 PM) Pulse Rate [55-90 bpm] 76 bpm (06/26/22 6:35 AM) Body Mass Index [18.5-24.99 kg/m2] 31.33 kg/m2 *>HHI* (06/26/22 6:35 AM) Blood Pressure [90-138/55-84 mm Hg] 137/94mm Hg (06/26/22 1:50 PM) 152/58mm Hg *H* (06/26/22 1:30 PM) 154/70mm Hg *H* (06/26/22 1:15 PM) Respiratory Rate [16-30 br/min] 25 br/min (06/26/22 1:50 PM) 18 br/min (06/26/22 1:30 PM) 20 br/min (06/26/22 1:15 PM) Temperature [96.8-100.4 DegF] 97.8 DegF (06/26/22 6:35 AM) Mode of Delivery (Oxygen) Room air (06/26/22 1:50 PM) Room air (06/26/22 1:30 PM) Room air (06/26/22 1:15 PM) Blood pressure sites Arm, left (06/26/22 1:50 PM) Arm, left (06/26/22 1:30 PM) Arm, left (06/26/22 1:15 PM) Temperature Route Temporal (06/26/22 6:35 AM) Dry Weight 80.2 kg (06/26/22 6:35 AM) 80.2 kg (06/26/22 6:35 AM) Weight Obtained Via Standing scale (06/26/22 6:35 AM) Standing scale (06/26/22 6:35 AM) Dry Weight Obtained Via Standing scale (06/26/22 6:35 AM) Standing scale (06/26/22 6:35 AM) Social History Social History Type Response Smoking Status Former smoker; Other : quit in my teens and was never a heavy smoker ; entered on: 06/23/15 Sex Note * Tosha Morrow: PERFORM Event Display: Discharge/Transfer Note Hospital Authored Date: [id number] Nursing Discharge Note Entered On: 06/26/2022 14:21 EST Performed On: 06/26/2022 14:21 EST by Tosha Morrow Nursing Discharge Note 2 Discharge Time : 06/26/2022 14:19 EST Discharge Level of Care at Discharge : Home/Long-Term/Foster Care Patient Left Unit Via : Wheelchair Patient Accompanied Off Unit with : Responsible adult DC Instructions Provided & Signed by Pt : Yes Patient Understands D/C Instructions : Yes Patient Instructions Discharge Signed : Yes Did Pt have Specialty Bed or Wound Vac : No Tosha Morrow - 06/26/2022 14:21 EST * Tosha Morrow: MODIFY, MODIFY, PERFORM Event Display: Patient Education/Instruction Authored Date: [id number] Inpatient Adult Discharge Instructions [address] [address] Name: BONITA HATCH : 1945 Visit: 06/26/2022 06:31:00 Current Date: 06/26/2022 10:10 Account: [id number] Inpatient Adult Discharge Instructions We would like to thank you for allowing us to assist you with your healthcare needs. The following includes patient education materials and information regarding your injury/illness. Our entire staffstrives to provide an excellent experience for our patients and their families. PLEASE ENSURE YOU FOLLOW-UP PER THE INSTRUCTIONS BELOW! ?? YOUR OPINION IS IMPORTANT TO US! Please complete the survey you may receive by mail or email. Your feedback will be used to make improvements to the healthcare experiences of our patients and their families. Surveys are administered by [employer] ?? If further treatment with your primary care physician or another doctor is recommended, it is important for you to keep the appointment. Call your primary care physician or return to the Emergency Department immediately if your condition worsens, fails to improve, or new symptoms develop. If you need to find a doctor, you can call [facility] for a referral at [phone] or toll free at [phone] or log in to [email or web address].. ?? You can view and manage your care through the patient portal or by using a health care alyssa of your choosing. [employer] is a website that allows you to securely view your medical information including your hospital discharge summary, office visit summaries, medications and follow-up visits. You can also request appointments, renew medications, and request access to your medical information using a health care alyssa of your choosing, or just ask a question. You can enroll at [email or web address] or register during your next office visit. You have been discharged from [facility], Patient Care Unit: CARE. If you have any questions regarding these instructions after you leave, please call us and we will be happy to assist you. [facility] Your Care Team Attending Physician Jose Gambino MD Reason for Admission [facility] D[facility] HV2 8011 ARR Tests Performed Below is a partial list of the tests performed during your hospitalization. You may have had other tests and procedures not included in this list. Please discuss all test results with your provider. BUN CBC Creatinine Lytes TAVR Angio Abdomen and Pelvis (CT)?-- Results Pending -- TAVR Angio Chest (CT)?-- Results Pending -- TAVR Heart (CT)?-- Results Pending -- ? You will be contacted within 72 hours with your results. Primary Care Provider Demetrius Cote MD Advance Directive Health Care Proxy on File No Discharge Vitals Temperature: 97.8 DegF Height: 160 cm Pulse Rate: 76 bpm Height: 160 cm Respiratory Rate: 17 br/min Weight: 80.2 kg Systolic Blood Pressure:??152 mm Hg??High Weight: 80.2 kg Diastolic Blood Pressure: 61 mm Hg Body Mass Index:??31.33 kg/m2??Critical Oxygen Saturation: 94 % Body surface area: 1.89 Studies Pending All tests and labs ordered during this hospital stay have been completed unless listed below. Please discuss all pending results with your provider listed above in these instructions. ?? CT TAVR Angio Abdomen and Pelvis (TAVR Angio Abdomen and Pelvis (CT)) CT TAVR Angio Chest (TAVR Angio Chest (CT)) CT TAVR Heart (TAVR Heart (CT)) Type and Screen What to do next Instructions From Your Doctor Discharge Orders Instructions from your Care Team if you have questions or concerns after discharge, you can call the CARE unit at [phone] Scheduled Follow-Up Appointments Saturday 7:40 AM EST ?? Where: [facility] [address] [place] [address]- You Need to Schedule the Following Appointments Follow Up with??Julio FAIR, Benjy Jimenez When??Within 1 to 2 weeks Why: cardiac surgery office, call to schedule appt for consultation for TAVR procedure Where: [facility] [place] [address]- Follow Up with??Jose Gambino MD When??Within 1 to 2 weeks Where: [address] [facility] [address] [place] [address]- Discharge Medications BONITA HATCH :1945 Visit Date:06/26/2022 Medications: Please continue your medications until treatment is completed or stopped by your provider. Medications not listed below should be discontinued. Discuss any questions related to medications with your provider. What How Much When Instructions Next Dose Unchanged Alendronate (alendronate 70 mg oral tablet) 1 tab(s) Oral Every week continue taking as prescribed Unchanged Anastrozole (anastrozole 1 mg oral tablet) 1 tab(s) Oral Daily continue taking as prescribed Unchanged apixaban (Eliquis 5 mg oral tablet) 1 tab(s) Oral Twice a day resume taking as prescribed Unchanged Calcium Carbonate (calcium carbonate 600 mg oral tablet) TAKE 1 TABLET BY MOUTH TWICE DAILY ?? continue taking as prescribed Unchanged Cevimeline (cevimeline 30 mg oral capsule) 1 capsule Oral 3 times a day continue taking as prescribed Unchanged Cholecalciferol (Vitamin D3 oral tablet) 1 tab(s) Oral Daily continue taking as prescribed Unchanged Ferrous Sulfate (FeroSul 325 mg oral tablet) TAKE 1 TABLET BY MOUTH EVERY DAY ?? continue taking as prescribed Unchanged Fluorometholone Ophthalmic (fluorometholone 0.1% ophthalmic suspension) 1 Drops Both eyes 4 times a day continue taking as prescribed Unchanged Levothyroxine (levothyroxine 0.1 mg oral tablet) 1 tab(s) Oral Daily continue taking as prescribed Unchanged Metoprolol (metoprolol 25 mg oral tablet) 1 tab(s) Oral Twice a day continue taking as prescribed Unchanged Ocular Lubricant (Refresh PM - ointment) 1 alyssa Both eyes Daily at Bedtime as needed for for dry eyes continue taking as prescribed Unchanged Ocular Lubricant (Systane ophthalmic solution) 1 Drops Both eyes 3 times a day as needed for as needed for dry eyes continue taking as prescribed Unchanged Simvastatin (simvastatin 40 mg oral tablet) 1 tab(s) Oral Daily at Bedtime Duration: 30 Days continue taking as prescribed Unchanged Trazodone (traZODone 50 mg oral tablet) 0.5 tab(s) Oral Daily at Bedtime continue taking as prescribed Test Results Below is a partial list of the most recent Laboratory test results done prior to this discharge. You may have had other tests and procedures not included in this list. Please discuss all test resultswith your provider. BUN (06/26/2022) ???BUN - 21 mg/dL CBC (06/26/2022) ???WBC - 6.5 k/mm3???RBC - 3.88 m/mm3???Hgb - 12.2 Gm/dL???Hct - 37.3 %???MCV - 96.1 femtoliters???MCH - 31.4 pg???MCHC - 32.7 g/dL???Platelet Count - 189 k/mm3???RDW-SD - 47.8 femtoliters???MPV - 11.7 femtoliters???Nucleated RBC (Automated) - 0.3 #/100 WBC'S???Abs. NRBC - 0.0 k/mm3 Creatinine (06/26/2022) ???Creatinine-Blood - 1.1 mg/dL???Estimated GFR Creatinine - 54 ML/MIN/1.73 M2 Lytes (06/26/2022) ???Sodium - 138 mmol/L???Potassium - 4.4 mmol/L???Chloride - 106 mmol/L???Bicarbonate Level - 25 mmol/L???Anion Gap - 7 Allergies (NKA means No Known Allergies) amoxicillin??(hives) penicillins??(hives) sulfa drugs Problems Active Problems??(11) Heart block AV second degree?? Hyperlipidemia?? Hypertension?? Hypothyroid?? NonHodgkins Lymphoma?? Obese class I?? Osteoarthritis?? PAF (paroxysmal atrial fibrillation)?? Psoriasis?? Sjorgens Disorder?? TIA (transient ischemic attack)?? Education Materials Below is the list of Educational Leaflet Providered with your Discharge Instructions. Surgery Radial Cath Approach Discharge Instructions?? Recovery After Procedural Sedation (Adult)?? Discharge Instructions for Cardiac Catheterization?? Bleeding or Hematoma After Cardiac Catheterization?? Valuables and Belongings I fully understand and agree that [facility] accepts no responsibility for all my personal property including clothing, toilet articles, radios, jewelry, dentures, hearing aids, rings, money, or any other property that is in my possession or is brought to me after admission. I understand certain valuables may be placed in a hospital safe for a short period of time. I understand that the hospital is not liable for loss or damage due to accident, fire, or other natural occurrence while said property is in the safe. I accept full responsibility for any personal property that I keep with me, and will not hold the hospital responsible in case of loss or disappearance. I acknowledge that i have been encouraged to send valuables and belongings home. ?? Review of Valuable and Belonging List: With patient Date for Pt to Sign Valuables/Belongings: 06/26/22 07:45:00 ?? Other Discharge Information ? Pulmonary Rehab Status?? Pulmonary Rehab Discharge Status?? Respiratory Rate: 17 br/min ? Common Emergency Awareness Tips IS IT A STROKE? Act FAST and Check for these signs: FACE Does the face look uneven? ARM Does one arm drift down? SPEECH Does their speech sound strange? TIME Call at any sign of stroke ?? Heart Attack Signs Chest discomfort: Most heart attacks involve discomfort in the center of the chest and lasts more than a few minutes, or goes away and comes back. It can feel like uncomfortable pressure, squeezing, fullness or pain. Discomfort in upper body: Symptoms can include pain or discomfort in one or both arms, back, neck, jaw or stomach. Shortness of breath: With or without discomfort. Other signs: Breaking out in a cold sweat, nausea, or lightheaded. Remember, MINUTES DO MATTER. If you experience any of these heart attack warning signs, call to get immediate medical attention! ?? Smoking can increase your chances of developing chronic health problems and can cause harmful effects to other family members in your house. If you smoke, you are strongly encouraged to quit. Please call [facility] at [phone] or [phone]) or log in to [email or web address] for referrals to smoking cessation programs. ?? The National Suicide Prevention Hotline is available 26/11 if you or someone you know needs to find a reason to keep living. By calling 8-013-028-viqu (8667) you'll be connected to a skilled, trained counselor at a crisis center in your area. INPATIENT DISCHARGE INSTRUCTIONS SIGNATURE PAGE BONITA HATCH Location:[facility] Registration Date and Time:06/26/2022 06:31 EST Primary Care Physician: Kera FAIR, Demetrius Alvarado, I BONITA HATCH, have received the above patient education materials/instructions and have verbalized understanding. If ambulance or transport services are being used I further acknowledge being given a choice of service. ?? If you need to contact me, please call me at this number: . Patient/Injection Molding Operator Name: Patient/Injection Molding Operator Signature: Relationship to Patient: Witness Name/Signature: Date: * Tosha Morrow: PERFORM Event Display: Patient Education Leaflets Authored Date: Surgery Radial Cath Approach Discharge Instructions ?? 278 Radial Cath Approach Discharge Instructions ?? Activity Take it easy the rest of the day. Limit your activity on the affected side.?? Act as if your arm is broken for 24 hours. No lifting with affected arm for 24 hours. No pushing or pulling with the affected arm. Do not reach or lift with the affected arm. Do not place excessive pressure on the wrist. ?? Precautions Due to intravenous sedation: It is recommended that someone stay with you for the first night after your procedure. Do not drive or operate hazardous machinery for 24 hours. Do not make legal decisions for 24 hours. Avoid alcohol for 24 hours. Unless directed otherwise, keep yourself hydrated. ?? Dressing/Incision Care You may remove the dressing 24 hours after your procedure. Replace with band aid for an additional 24 hours. You may shower and cleanse the site with soap &&water then pat dry. Avoid submersion of site in water x 5 days. Cover the with a clean band aid daily until site is healed. If the band aid becomes soiled, replacewith a clean new one. Do not apply any ointments, lotions, gels or powders to the puncture site. ?? When to contact your doctor If any of the following signs of infection occur: Fever greater than 100 degrees F Increased pain Drainage, redness or warmth at puncture site Tingling of the fingers and hand that last longer than 3 days Slight bubble of blood or bleeding from site: apply manual pressure and notify your doctor ?? Emergency situations: Bleeding from the site that will not stop: apply manual pressure and notify your doctor Profuse bleeding streaming from the puncture site: Apply manual pressure and notify your doctor immediately If your hand becomes bluish, cold to the touch, or painful, notify your doctor immediately or go toEmergency Department. For these emergent situations: If unable to contact your physician, call 911. ?? * Tosha Morrow: PERFORM Event Display: Patient Education Leaflets Authored Date: Recovery After Procedural Sedation (Adult) ?? [id number] Recovery After Procedural Sedation (Adult) You have been given medicine by vein to make you sleep during your procedure. This may have included both a pain medicine and sleeping medicine. Most of the effects have worn off. But you may still have some drowsiness for the next 6 to 8 hours. Home care Follow these guidelines when you get home: ??? For the next 8 hours, you should be watched by a responsible adult. This person should make sure your condition is not getting worse. ??? Don't drink any alcohol??for the next 24 hours. ??? Don'tdrive, operate dangerous machinery, or make important business or personal decisions??during the next 24 hours. Note: Your healthcare provider may tell you not to take any medicine by mouth for pain or sleep in the next 4 hours. These medicines may react with the medicines you were given in the hospital. This could cause a much stronger response than usual. ?? Follow-up care Follow up with your healthcare provider as advised. Also follow up with your provider if you are not alert and back to your usual level of activity within 12 hours. ?? When to seek medical advice Have someone call your healthcare provider right away if any of these occur: ??? Drowsiness gets worse ??? Weakness or dizziness gets worse ??? Repeated vomiting ??? Severe or ongoing pain from the procedure that's not eased by the pain medicine (if prescribed) ??? Fever ??? New rash ?? Call 911 Have someone call 911 if you have any of these: ??? Shortness of breath ??? Chest pain ??? Loss of consciousness or you can't be awakened ?? Last Reviewed Date: 2021 ?? [id number] [employer]. All rights reserved. This information is not intended as a substitute for professional medical care. Always follow your healthcare professional's instructions. ?? * Tosha Morrow: PERFORM Event Display: Patient Education Leaflets Authored Date: [id number] Discharge Instructions for Cardiac Catheterization ?? [address] Discharge Instructions for Cardiac Catheterization Cardiac catheterization??is an invasive??procedure??to look for certain heart problems. These problems may affect the heart's chambers, valves, and blood vessels. A thin, flexible tube (catheter) is put in a blood vessel in your groin or arm. The catheter is moved to the heart. The healthcare provider can look at the blood flow, blood pressure, and oxygen. They can inject contrast fluid??into your blood. This flows to your heart.??The provider can then take X-rays pictures?? of your heart. Coronary angiography is often done as part of a cardiac cath. This looks for blocked areas in the arteries that send blood to the heart. If a blockage is found, your provider may try to open up the artery. They may put a stent in place. Your provider will talk with you about the results of your procedure . Ask any questions you have before you leave. This sheet will help you take care of yourselfat home. Home care ??? Have a responsible adult drive you home after your procedure. ??? Don't drive or makeany important decisions for at least 24 hours after getting any type of sedation or anesthesia.? Drink?? 6 to 8??glasses of water over the next 24 hours. This is to help flush the contrast dye out of your body. Call your healthcare team if your urine has any change in color. ??? Take your tempe rature each day for 3 to 5 days. If you feel cold and clammy or start sweating, take your temperature right away. Call your healthcare team. ??? Do only light and easy activities for??the next?? 2 to3??days. Ask for help with chores and errands while you recover. Have someone drive you to your appointments. ??? Don't lift anything heavy??until your healthcare team says it's safe. ??? Ask your healthcare team when you can expect to return to work. Unless your job involves lifting, you may be able to return to your normal activities within 2 days. ??? Take your medicines as directed. Don't skip doses. ??? Check your incisions every day for signs of infection. These include redness, swelling,and fluid leaking. It's normal to have a small bruise or bump where the catheter was put in. A bruise that's getting larger is not normal. Tell your healthcare team about this. Call your healthcare team if you see blood forming in the incision. Go to the emergency room if you have uncontrolled bleeding from the artery site. This is even more important if you take medicines that make it hard for your blood to clot. These include aspirin, clopidogrel, warfarin, apixaban, and rivaroxaban. ??? Eat a healthy diet. Make sure it's low in fat, salt, and cholesterol. Ask your healthcare team for diet information. ??? Stop smoking. Sign up for a quit-smoking program. Or ask your healthcare team for help. ??? Exercise as your healthcare team tells you to. Your healthcare team??may advise you to start a cardiac rehab program. Cardiac rehab is an exercise program where trained healthcare staff watchyour progress and stress on your heart while you exercise. Ask your team how to enroll. ??? Don't swim or take baths until your healthcare team says it???s OK. You can shower the day after the procedure. Keep the site clean and dry. This keeps the incision from getting wet and infected until the skin and artery can heal. ??? Follow all other after-care instructions from your team.? Follow-up care ??? Make a follow-up appointment as advised. It's common to have a follow-up appointment 2 to 4 weeks after an angioplasty or coronary stent procedure. ??? Make a yearly appointment. This is??to make sure you're still doing well and not having any new symptoms. ??? Don't wait for a follow-up appointment if your medicines aren't working or you're having heart-related symptoms. Call your healthcare provider. ?? When to get medical care Call your healthcare provider right away if you have any of these: ??? Severe or increasing pain, numbness, coldness, or a bluish color in the leg or arm that held the catheter ??? Fever of 100.4?? F??( 38??C) or higher, or as advised by your healthcare provider ??? Signs of infection at the incision site. These include redness, swelling, drainage, or warmth. ??? Bleeding, bruising, or a lot of??swelling where the catheter was inserted ??? Blood in your urine ??? Black or tarry stools ??? Any unusual bleeding ??? Irregular, very slow, or fast heartbeat ??? Dizziness ?? Call 911 Call 911 if you have any of these: ??? Chest pain ??? Shortness of breath ??? Sudden numbness or weakness in arms, legs, or face, or trouble speaking ??? The puncture site swells up very fast ??? Bleeding from the puncture site that doesn't slow down with firm pressure ?? Last Reviewed Date: 2021 ?? [employer]. All rights reserved. This information is not intended as a substitute for professional medical care. Always follow your healthcare professional's instructions. ?? Patient Care team information Care Team Personnel Name: Demetrius Cote MD Position: [facility] Oncology MD Member Role: PCP Address: Address: [address] [place] [address] [address] Demetrius Cote III, MD [place], [place] [address] Name: Lizabeth Manzano [place] Position: [facility] Ambulatory Clinician Member Role: Primary Care Nurse Care Team Related Persons Name: WENDY HATCH Address: home [address] [place] [address] Name: YAQUELIN HATCH Address: home [address] [place] [address]
--- OUTSIDE RECORDS SUMMARY | 2023-11-14 09:19 | XMS_ITS | Continuity of Care Document ---
Author Organization [facility] Leonel chyna Address [address] [place] [id number]- Care Team Providers Care Interface Engineer Name Role Phone Demetrius Cote MD Primary Care Physician [place] [facility] [place] - 08/09/22 [facility] Cardiac Surgery [address] [place] [id number] Attending Physician: Raúl Enrique Admitting Physician: AdmRaúl [...] 3 Refills, Maintenance, 04/24/21 9:50:00 EST, Tablet, [facility] #[id number], 158, cm, 11/14/20 9:57:00 EDT, Height, 83, kg, 04/22/20 11:36:00 EST, Dry Weight Start Date: 04/24/21 Stop Date: 04/19/22 Status: Ordered Eliquis 5 mg oral tablet 1 tablet, By Mouth, 2 times a day, # 180 tablet, 3 Refills, Maintenance, 04/10/22 8:09:00 EST, [facility] #[id number], 158, cm, 01/24/22 7:58:00 EDT, Height, 79.5, [...] Team Personnel Name: Demetrius Cote MD Position: [facility] Oncology MD Member Role: PCP Address: Address: [address] Demetrius Cote III, [place] [address]- Name: Lizabeth Manzano [place] Position: [facility] Ambulatory Clinician Member Role: Primary Care Nurse Care Team Related Persons Name: WENDY HATCH Address: home [address] [place] [address] Name: YAQUELIN HATCH Address: home [address] [place] [address]
--- OUTSIDE RECORDS SUMMARY | 2023-11-14 09:19 | XMS_ITS | Continuity of Care Document ---
Author Organization [facility] Address [address] [place] [id number]- Care Team Providers Care Racing Secretary Name Role Phone Demetrius Cote MD Primary Care Physician Encounter [facility] [place] Date(s): 10/17/22 - 11/16/22 [facility] [address] [place] [id number]- Attending Physician: Raúl Enrique Admitting Physician: AdmRaúl arroyo Referring Physician: Admtr, Ar8 Allergies, Adverse Reactions, Alerts Substance Reaction Severity [...] 08/21/22 14:15:00 EDT, Route to Pharmacy Electronically, [facility] #[id number], Partial fill upon patient request if the prescription is for a schedule II... Start Date: 08/21/22 Status: Ordered Eliquis 5 mg oral tablet 1 tablet, By Mouth, 2 times a day, # 180 tablet, 3 Refills, Maintenance, 04/10/22 8:09:00 EST, [facility] #[id number], 158, cm, 01/24/22 7:58:00 EDT, Height, 79.5, [...] heavy smoker ; entered on: 06/23/15 Sex Cardiology * Event Display: Device Check Office Visit Authored Date: Radiology * Event Display: Ultrasound Abdomen, Non-BH Authored Date: Patient Care team information Care Team Personnel Name: Demetrius Cote MD Position: [facility] Physician - Oncology Member Role: PCP Address: Address: [address] [place] [address] [address] Demetrius Cote III, [place] [address]- Name: Lo Wheeler Position: [facility] RN Member Role: Primary Care Nurse Care Team Related Persons Name: WENDY HATCH Address: home [address] [place] [address] Name: YAQUELIN HATCH Address: home [address] [place] [address]
--- OUTSIDE RECORDS SUMMARY | 2023-11-14 09:19 | XMS_ITS | Continuity of Care Document ---
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 Name Role Phone Kera FAIR, Demetrius Alvarado Primary Care Physician Encounter [facility] [place] Date(s): 08/20/22 - 08/21/[address] [address] Discharge Disposition: A-D/C Home Attending Physician: Theron Mcdaniels MD Admitting Physician: Theron Mcdaniels MD Referring Physician: Theron Mcdaniels MD Allergies, Adverse Reactions, Alerts Substance Reaction [...] 08/21/22 14:15:00 EDT, [id number] Partial fill upon patient request if the prescription is for a schedule II... Start Date: 08/21/22 Status: Ordered Eliquis 5 mg oral tablet 1 tablet, By Mouth, 2 times a day, # 180 tablet, 3 Refills, Maintenance, 04/10/22 8:09:00 EST[id number], 158, cm, 01/24/22 7:58:00 EDT, Height, 79.5, [...] oral tablet 25 mg, Tablet, By Mouth, 08/21/22 9:00:00 EDT Start Date: 08/21/22 Stop Date: 08/21/22 Status: Completed simvastatin 40 mg oral tablet 1 tablet [...] Active TIA (transient ischemic attack) Confirmed Active Results Radiology Reports * Exam Date Time Procedure Performing Provider Status 08/21/22 5:43 AM Chest Portable Micaela Anand; Auth (Verified) Notes: (Chest Portable) Reason For Exam: S/P TAVR;Postop RESULT: Chest Portable Chest Portable Reason: Postop; S P TAVR; Clinical Question(s): Other:; Cardiac Tamponade COMPARISON: Multiple prior examinations the most recent dated 08/20/2022 at 1:25 PM. FINDINGS: LINES AND TUBES: Triple lead left subclavian transvenous pacemaker in place with intact leads. LUNGS AND PLEURA: Slightly low lung volumes. Clear lungs. Normal pulmonary vascularity. No pleural effusion. No pneumothorax. HEART, MEDIASTINUM AND BHARATI: Heart is normal in size. Status post TAVR unchanged. Normal mediastinal and hilar contour. BONES AND SOFT TISSUES: No acute abnormality. Vertebroplasties or kyphoplasties at T11 and T12. Moderate degenerative change at both shoulders. IMPRESSION: No significant interval change. WSN: [id number] Ordering Physician: Bernabe Davis Dictated By: Chava Schroeder MD, V Dictated Date/Time: 08/21/22 9:07 am Reviewed By: Chava Schroeder MD, V Signed By: Chava Schroeder MD, V Signed Date/Time: 08/21/22 9:07 am Transcribed By: JULIO Transcribed Date/Time: 08/21/22 9:04 am * Exam Date Time Procedure Performing Provider Status 08/20/22 1:37 PM Chest Portable Benjamín Melvin; Jayla ( Verified) Notes: (Chest Portable) Reason For Exam: S/P TAVR;Postop RESULT: Chest Portable AP semiupright portable chest dated August 20, 2022 at 1325 hours. Comparison films are from April 23, 2020. HISTORY: Status post TAVR. FINDINGS: The cardiac silhouette is within normal limits for size. A pacemaker is present on the left. Wires extend to overlie the heart. A transarterial prosthetic aortic valve is present. Its position is within normal limits. No airspace infiltrate or pleural effusion is identified. Degenerative changes are noted in the spine. There are vertebral plasties present at T11 and T12. Examination 18935. Thank you for allowing me to participate in the care of this patient. WSN: [id number] Ordering Physician: Bernabe Davis Dictated By: Lorne Musa MD Dictated Date/Time: 08/20/22 2:26 pm Reviewed By: Lorne Musa MD Signed By: Lorne Musa MD Signed Date/Time: 08/20/22 2:26 pm Transcribed By: JULIO Transcribed Date/Time: 08/20/22 2:26 pm Vital Signs Most recent to oldest [Reference Range]: 1 2 3 Height 160 cm (08/21/22 7:48 AM) 160 cm (08/20/22 4:46 PM) 160 cm (08/20/22 2:07 PM) Weight 80 kg (08/20/22 8:02 AM) Oxygen Saturation [94-100 %] 96 % (08/21/22 7:48 AM) 96 % (08/21/22 5:00 AM) 95 % (08/21/22 12:00 AM) Pulse Rate [55-90 bpm] 76 bpm (08/21/22 7:48 AM) 77 bpm (08/21/22 7:41 AM) 75 bpm (08/21/22 5:00 AM) Body Mass Index [18.5-24.99 kg/m2] 31.25 kg/m2 *>HHI* (08/20/22 8:02 AM) Blood Pressure [90-138/55-84 mm Hg] 152/64mm Hg *H* (08/21/22 7:48 AM) 142/64mm Hg *H* (08/21/22 7:41 AM) 121/61mm Hg (08/21/22 5:00 AM) Respiratory Rate [16-30 br/min] 18 br/min (08/21/22 7:48 AM) 18 br/min (08/21/22 5:00 AM) 18 br/min (08/21/22 12:00 AM) Temperature [96.8-100.4 DegF] 98.7 DegF (08/21/22 7:48 AM) 98.2 DegF (08/21/22 5:00 AM) 98.2 DegF (08/21/22 12:00 AM) Mode of Delivery (Oxygen) Room air (08/21/22 7:48 AM) Room air (08/21/22 5:00 AM) Room air (08/21/22 12:00 AM) Blood pressure sites Arm, left (08/21/22 7:48 AM) Arm, left (08/21/22 5:00 AM) Arm, left (08/21/22 12:00 AM) Temperature Route Oral (08/21/22 7:48 AM) Oral (08/21/22 5:00 AM) Oral (08/21/22 12:00 AM) Dry Weight 80 kg (08/20/22 8:02 AM) Social History Social History Type Response Smoking Status Former smoker; Other : quit in my teens and was never a heavy smoker ; entered on: 06/23/15 Sex Note * Event Display: Hemodynamic Procedure Report Authored Date: * Theron Mcdaniels MD: Theron Keller MD: SIGN, SIGN, VERIFY, PERFORM Shree Peraza: PERFORM, MODIFY Shree Peraza: MODIFY Event Display: Discharge/Transfer Note Hospital Authored Date: Patient: BONITA HATCH Age: 77 years Sex: Female : 1945 Associated Diagnoses: None Author: Shree Peraza Discharge Information Chief Complaint/Reason for Admission Dyspnea on exertion Principal Discharge Diagnosis Aortic stenosis: Present on admission - yes. Patient is aware of diagnosis Procedures Right transfemoral TAVR with a 29 Medtronic Evolut FX. Attending Consultants Jose Gambino MD. Discharge condition: good Compared to admission: improved Functional Status: ambulatory Discharge Disposition Home: self care, family. Discharge Summary distribution: Route to attending, referring, and primary care provider. Route to: Demetrius Cote MD Route to: Jose Gambino MD. Discharge Date 08/21/2022 Admission Date 08/20/2022 Code Status Full Resuscitation. Draft of Summary Completed by: Shree Peraza. Hospital Course Typed narrative 77-year-old female with a history of non-Hodgkin lymphoma and whole chest radiation, HTN, HLD, AF, SSS (s/p PPM) who had been experiencing chronic shortness of breath and was found to have a low-flow, low-gradient severe aortic stenosis. She also had some degree of mitral stenosis and aortic insufficiency. She was referred for a valve replacement given her history of the chest radiation for lymphoma, in her age and comorbidity, and was felt to be a better candidate for TAVR rather than open surgery. POD: 1??TAVR CARDIAC SURGEON: Dr Mcdaniels CARDIOLOGY INTERVENTIONALIST:??Dr Gambino Neurologic Intact, alert, oriented. Pain controlled. Continue home trazodone 12.5mg PO at bedtime. Cardiology HTN HLD Continue home antihypertensives as hemodynamics allow. Echo showed mild paravalvular leak. EKG showed ventricular paced rhythm. Continue home metoprolol 25mg PO BID. Continue home simvastatin 40mg PO daily. Pulmonary Tolerating room air well. CXR showed no acute abnormalities. Gastrointestinal Tolerating cardiac diet Renal Baseline creatinine 1. Creatinine at discharge was 1. Genitourinary Voiding without issues. Integument Bilateral groins soft, no hematomas, dressing clean and intact. Hematology Antiplatelet plan -??Aspirin 81mg PO daily. Continue home Apixaban 5mg PO BID for known atrial fibrillation. Endocrine Continue home Levothyroxine 0.1mg PO daily. Infectious Disease No signs of infection. Afebrile. Perioperative antibiotics. Disp;??Discharge home today. Patient will follow up in TAVR clinic as scheduled Patient will have a follow up echo as scheduled. Patient will need to have a cbc and bmp drawn one week post discharge Physical Exam Neuro -Alert and oriented individual in no distress Cardiovascular- Cardiac assessment reveals S1, S2 with no murmurs, gallops or rubs. RRR. Lower extremities are without edema. Respiratory- Lung sounds are clear to auscultation anterior and posterior with no rales or rhonchi noted. GI- Abdomen is soft nontender with bowels sounds appreciated in all 4 quadrants. - Voiding without difficulty. Integumentary- Bilateral groins soft nontender, no hematoma. Significant Results Results: Vital signs : VITAL SIGNS SECTION 08/21/2022 7:48 EDT Temperature 98.7 DegF Temperature Route Oral Pulse Rate 76 bpm Respiratory Rate 18 br/min Systolic Blood Pressure 152 mm Hg H Diastolic Blood Pressure 64 mm Hg Blood pressure sites Arm, left Mean Arterial Pressure 93 mm Hg Pulse Pressure 88 mm Hg Oxygen Saturation 96 % Mode of Delivery (Oxygen) Room air , Laboratory : LABORATORY 08/21/2022 7:18 EDT WBC 10.7 k/mm3 RBC 3.59 m/mm3 L Hgb 11.3 Gm/dL L Hct 34.5 % L MCV 96.1 femtoliters MCH 31.5 pg MCHC 32.8 g/dL L Platelet Count 143 k/mm3 L RDW-SD 47.2 femtoliters H MPV 11.4 femtoliters Nucleated RBC (Automated) 0.0 #/100 WBC'S Abs. NRBC 0.0 k/mm3 Sodium 135 mmol/L Potassium 4.6 mmol/L Chloride 103 mmol/L Bicarbonate Level 25 mmol/L Anion Gap 7 BUN 17 mg/dL Creatinine-Blood 1.0 mg/dL Estimated GFR Creatinine 56 ML/MIN/1.73 M2 Magnesium 2.0 mg/dL . 35 minutes spent on discharge Discharge Plan Diet/Activity/Patient Education/Follow Up Follow Up with: [facility] [phone]; ECHO 10/31/2022 2:30 PM;Ashequl Worship 10/17/2022 1:45 PM; Demetrius Cote Within 2 to 5 weeks. Discharge Disposition Discharge: home. MEDICATION LIST (Selected) Prescriptions Prescribed Eliquis 5 mg oral tablet: 1 tablet, By Mouth, 2 times a day, # 180 tablet, 3 Refills, Maintenance, 04/10/22 8:09:00 [facility], [facility] #[id number], 158, cm, 01/24/22 7:58:00 EDT, Height, 79.5, kg, 09/06/21 13:58:00 EDT, Dry Weight aspirin 81 mg oral capsule: = 81 mg, By Mouth, Daily, # 30 capsule, 0 Refills, Maintenance, 08/21/22 11:25:00 EDT, Capsule, [facility] #[id number], Partial fill upon patient request if the prescription is for a schedule II opioid drug., 160, cm, 08/21/22 7:48:00 EDT, Height... simvastatin 40 mg oral tablet: 1 tablet = 40 mg, By Mouth, Daily at bedtime, # 30 tablet, 0 Refills, Maintenance, Tablet Documented Medications Documented FeroSul 325 mg oral tablet: TAKE 1 TABLET BY MOUTH EVERY DAY Vitamin D3 oral tablet: 1 tablet = 10 mcg, By Mouth, Daily, 0 Refills, Maintenance, 05/25/22 11:34:00 EST, Partial fill upon patient request if the prescription is for a schedule II opioid drug. alendronate 70 mg oral tablet: 1 tablet = 70 mg, By Mouth, Every week, # 4 tablet, 0 Refills, Maintenance, 04/22/20 11:30:00 EST, Tablet, Partial fill upon patient request if the prescription is for a schedule II opioid drug. fluorometholone 0.1% ophthalmic suspension: 1 drops, Eyes, Both, 4 times a day, 0 Refills, Maintenance, 05/28/16 7:47:47 levothyroxine 0.1 mg oral tablet: 1 tablet = 0.1 mg, By Mouth, Daily, # 30 tablet, 0 Refills, Maintenance, Tablet metoprolol 25 mg oral tablet: 25 mg, 1, tablet, By Mouth, 2 times a day, # 60 tablet, Refills 0, Maintenance, 04/22/20 11:29:00 EST, Partial fill upon patient request if the prescription is for a schedule II opioid drug. traZODone 50 mg oral tablet: 25 mg, 0.5, tablet, By Mouth, Daily at bedtime, # 15 tablet, Refills 0, Maintenance, 04/22/20 11:32:00 EST, Partial fill upon patient request if the prescription is for aschedule II opioid drug. Therapies Wound care: May take shower; do not apply lotions or perfumed soap to surgical wound; Pat dry do not rub wounds. Call clinic for sigs of infection to include fever, chills, reddness, pus like drainage or wound separation at any time for questions or concerns.. * Carola Otoole RN: PERFORM Event Display: Patient Education/Instruction Authored Date: [id number] Inpatient Adult Discharge Instructions [address] [address] Name: BONITA HATCH : 1945 Visit: 08/20/2022 06:45:00 Current Date: 08/21/2022 12:08 Account: [id number] Inpatient Adult Discharge Instructions We would like [...] and their families. Surveys are administered by [employer] ?? If further treatment with your primary care physician or another doctor is recommended, it is important for you to keep the appointment. Call your primary care physician or return to the Emergency Department immediately if your condition worsens, fails to improve, or new symptoms develop. If you need to find a doctor, you can call [facility] for a referral at [phone] or toll free at [phone]) or log in to [email or web address].. ?? You can view and manage your care through the patient portal or by using a health care alyssa of your choosing. [employer] is a website that allows you to securely view your medical information including your hospital discharge summary, office visit summaries, medications and follow-up visits. You can also request appointments, renew medications, and request access to your medical information using a health care alysas of your choosing, or just ask a question. You can enroll at [email or web address] or register during your next office visit. You have been discharged from [facility], Patient Care Unit: M6. If you have any questions regarding these instructions after you leave, please call us and we will be happy to assist you. [facility] Your Care Team Attending Physician Arslan FAIR, Theron Discharging Providers Shree Peraza Reason for Your Visit AORTIC STENOSIS TAVR MM2EMA 630AM ARR Your Diagnosis Afib Aortic stenosis Tests Performed Below is a partial list of the tests performed during your hospitalization. You may have had other tests and procedures not included in this list. Please discuss all test results with your provider. BUN CBC w/ Differential Creatinine Electrolytes GLUCOSE POC Hgb + Hct Magnesium Level XR Chest Portable Primary Care Provider Demetrius Cote MD Advance Directive . Discharge Vitals Temperature: 98.7 DegF Height: 160 cm Pulse Rate: 76 bpm Weight: 80 kg Respiratory Rate: 18 br/min Body Mass Index:??31.25 kg/m2??Critical Systolic Blood Pressure:??152 mm Hg??High Body surface area: 1.89 Diastolic Blood Pressure: 64 mm Hg ?? Oxygen Saturation: 96 % ?? Studies Pending All tests and labs ordered during this hospital stay have been completed unless listed below. Please discuss all pending results with your provider listed above in these instructions. ?? BUN CBC w/ Differential COVID-19 (2019 Novel Coronavirus) PCR Creatinine Electrolytes Magnesium Level RBCs for Surgery Type and Screen What to do next Instructions From Your Doctor Discharge Orders Scheduled Follow-Up Appointments Saturday 1:00 PM EDT ?? With: Where: [facility] [address] [place] [address]- Saturday 1:45 PM EDT ?? With: Jose Gambino MD Where: [facility] [address] [place] [address]- You Need to Schedule the Following Appointments Follow Up with??ECHO When??10/31/2022 02:30 PM EDT Where: [address] [place] [address], [address] [place] [address]- Follow Up with??Jose Gambino When??10/17/2022 01:45 PM EDT Where: [address] [place] [address] [address] [place] [address]- Business (1) Follow Up with??[facility] When??09/18/2022 10:30 AM EDT Why: [phone] Where: [address] [facility], [address] [place], [place] Follow Up with??Demetrius Cote When??Within 2 to 5 weeks Discharge Medications BONITA HATCH :1945 Visit Date:08/20/2022 Medications: Please continue your medications until treatment is completed or stopped by your provider. Medications not listed below should be discontinued. Discuss any questions related to medications with your provider. What How Much When Instructions Next Dose New Aspirin (aspirin 81 mg oral capsule) 81 Milligram Oral Daily Pickup at [facility] #[id number] Tomorrow morning Unchanged Alendronate (alendronate 70 mg oral tablet) 1 tab(s) Oral Every week continue home regimen Unchanged apixaban (Eliquis 5 mg oral tablet) 1 tab(s) Oral Twice a day Tonight at bedtime Unchanged Cholecalciferol (Vitamin D3 oral tablet) 1 tab(s) Oral Daily Tomorrow morning Unchanged Ferrous Sulfate (FeroSul 325 mg oral tablet) TAKE 1 TABLET BY MOUTH EVERY DAY ?? Tomorrow morning Unchanged Fluorometholone Ophthalmic (fluorometholone 0.1% ophthalmic suspension) 1 Drops Both eyes 4 times a day continue home regimen Unchanged Levothyroxine (levothyroxine 0.1 mg oral tablet) 1 tab(s) Oral Daily Tomorrow morning Unchanged Metoprolol (metoprolol 25 mg oral tablet) 1 tab(s) Oral Twice a day Tonight at bedtime Unchanged Simvastatin (simvastatin 40 mg oral tablet) 1 tab(s) Oral Daily at Bedtime Duration: 30 Days Tonight at bedtime Unchanged Trazodone (traZODone 50 mg oral tablet) 0.5 tab(s) Oral Daily at Bedtime Tonight at bedtime Pharmacy Information [facility] #[id number]: [address] [place], [place] [id number] [phone] Test Results Below is a partial list of the most recent Laboratory test results done prior to this discharge. You may have had other tests and procedures not included in this list. Please discuss all test resultswith your provider. RBC Available - RE (08/20/2022) RBC Unit ID - [id number] (08/20/2022) BUN (08/21/2022) ???BUN - 17 mg/dL CBC w/ Differential (08/21/2022) ???WBC - 10.7 k/mm3???RBC - 3.59 m/mm3???Hgb - 11.3 Gm/dL???Hct - 34.5 %???MCV - 96.1 femtoliters???MCH - 31.5 pg???MCHC - 32.8 g/dL???Platelet Count - 143 k/mm3???RDW-SD - 47.2 femtoliters???MPV - 11.4 femtoliters???Nucleated RBC (Automated) - 0.0 #/100 WBC'S???Abs. NRBC - 0.0 k/mm3???Abs. Neut - 7.7 k/mm3???Abs. Lymph - 1.2 k/mm3???Abs. [place] - 1.7 k/mm3???Abs. Eo - 0.1 k/mm3???Abs. Baso - 0.0 k/mm3???Neut % - 71.5 %???Lymph % - 10.8 %???[place] % - 16.0 %???Eos % - 0.8 %???Baso % - 0.4 %???RBC Morphology - FEW???Imm Gran - 0.5 %???Abs. Imm Gran - 0.1 k/mm3 Creatinine (08/21/2022) ???Creatinine-Blood - 1.0 mg/dL???Estimated GFR Creatinine - 56 ML/MIN/1.73 M2 Electrolytes (08/21/2022) ???Sodium - 135 mmol/L???Potassium - 4.6 mmol/L???Chloride - 103 mmol/L???Bicarbonate Level - 25 mmol/L???Anion Gap - 7 GLUCOSE POC (08/20/2022) ???Glucose, POC - 97 mg/dL Hgb + Hct (08/20/2022) ???Hgb - 12.1 Gm/dL???Hct - 38.8 % Magnesium Level (08/21/2022) ???Magnesium - 2.0 mg/dL Allergies (NKA means No Known Allergies) amoxicillin??(hives) penicillins??(hives) sulfa drugs Problems Active Problems??(11) Heart block AV second degree?? Hyperlipidemia?? Hypertension?? Hypothyroid?? NonHodgkins Lymphoma?? Obese class I?? Osteoarthritis?? PAF (paroxysmal atrial fibrillation)?? Psoriasis?? Sjorgens Disorder?? TIA (transient ischemic attack)?? Education Materials Below is the list of Educational Leaflet Providered with your Discharge Instructions. M-TAVR Discharge Instructions?? Valuables and Belongings I fully understand and agree that [facility] accepts no responsibility for all my personal [...] Review of Valuable and Belonging List: With patient, With family Date for Pt to Sign Valuables/Belongings: 08/20/22 08:11:00 ?? Valuables & Belongings ?? Clothes Electronic devices Jewelry Monetary Items Personal devices Miscellaneous Medications (Valuables) Valuables at Bedside Jacket, Pants, Shirt, Shoes, Undergarments ? Glasses ? Valuables Sent Home ? Valuables Sent to Security ? Other Discharge Information ? Pulmonary Rehab Status?? Pulmonary Rehab Discharge Status?? Respiratory Rate: 18 br/min ? Cardiac Rehab Assessment?? Cardiac Rehab Inpatient Assessment?? Comments-Education: s/p TAVR procedure Comments-Exercise Activity: Increase as tolerated Comments-Nutrition: Heart Healthy Diet Comments-Lipids: followed by PCP Patient attending Phase II: Yes Phase II Site of Care: [address] [phone] Common Emergency Awareness Tips IS IT A [...] are strongly encouraged to quit. Please call [facility] at [phone] or [phone] ([phone]) or log in to [email or web address] for referrals to smoking cessation programs. ?? 017 Suicide & Crisis Lifeline is available 26/11 if you or someone you know needs to find a reason to keep living. By calling 418 you'll be connected to a skilled, trained counselor at a crisis center in your area. INPATIENT DISCHARGE INSTRUCTIONS SIGNATURE PAGE BONITA HATCH Location:[facility] Registration Date and Time:08/20/2022 06:45 EDT Primary Care Physician: Kera FAIR, Demetrius Alvarado, I BONITA HATCH, have received the above patient education materials/instructions and have verbalized understanding. If ambulance or transport services are being used I further acknowledge being given a choice of service. ?? If you need to contact me, please call me at this number: . Patient/Salesperson Fashion Accessories Name: Patient/Salesperson Fashion Accessories Signature: Relationship to Patient: Witness Name/Signature: Date: * Prerna Alex: SIGN Teressa Barreto: PERFORM, SIGN Teressa Barreto: SIGN, VERIFY Teressa Barreto: VERIFY, SIGN Teressa Barreto: SIGN Shree Peraza: SIGN Event Display: Patient Education Handout Authored Date: [id number] * Shree Peraza: PERFORM Event Display: Patient Education Leaflets Authored Date: [id number] M-TAVR Discharge Instructions ?? 195 TAVR Discharge Instructions ?? Here is information related to your condition to help you when you get home. ?? Call the cardiac surgery office if you experience any of the following: Temperature of 101 or above, chills, sweating Changes in breathing, chest pain, abnormal pain, dizziness, fainting, change in pulse, pulse rate or palpitations, nausea, vomiting. Any bleeding or swelling at the incision site or if a hard lump forms. Any drainage, redness or tenderness or edges pulling apart at your surgical incision site. Gain more than 2-3 pounds in one day or 5 pounds in 1 week. Call your doctor if you experience any new rash, cough, dizziness, leg cramps, or blurred vision. ?? Call 911 if: You develop a new onset of weakness, numbness, loss of vision, slurred speech or any concern for a stroke or mini-stroke. If you develop numbness, tingling, loss of sensation, and or coolness to your arms or legs. If you develop chest pain or discomfort that is not relieved with rest. If profuse bleeding (does not stop in 30 minutes) occurs hold pressure to the site and call 911, [address]ot drive yourself to the nearest hospital. ?? FOLLOW-UP A follow up appointment should be made with your doctor. If you do not have an appointment scheduled already, make an appointment when you get home. Follow up care is important; it is strongly encouraged for you to keep your appointment. You may have more than one appointment, one with your bristle machine operator and one with your primary care doctor and one with the cardiac surgeon. Follow up with your water sponger and/or cardiac surgeon in 7 to 14 days or as directed. Follow up with your primary care provider in 2-3 weeks or as recommended. Follow up with your primary bristle machine operator in 4-6 weeks or as recommended. If you do not have these appointments scheduled already, make an appointment when you get home. If you have any questions, please call the cardiac surgery office at [phone]. You will receive a booklet and card specific to the valve you received. This card should be carriedwith you at all times. ?? POST OPERATIVE DISCHARE INSTRUCTIONS ?? Bathing You can take a shower after you are discharged from the hospital. If you are unsteady on your feet use a shower chair. Avoid soaking in a tub for at least 4 weeks after the operation. You may need assistance with showering the first few days. ?? Incision Care Look at your incision site (groin and/or chest wall) every day until it is completely healed. You may see bruising, that is common after the procedure. Check your incision daily for drainage, redness, increased tenderness or edges pulling apart. Keep your incision clean and dry. Use only soap and water to cleanse the area around the incision. Once the incision is healed you may wash over the incision with a soft wash cloth and soap and water. Avoid using perfumed soaps or body washes, lotions, creams, oils, or ointments on your incision. This may irritate your incision and put you at risk for infection. ?? Activity Review the written materials given to you by the Cardiac Rehabilitation staff for your specific exercise program. No heavy lifting over 10 pounds (gallon of milk) for 1 week following the surgery. Gradually increase your activity. This will promote wound healing. Remember to alternate periods ofactivity with periods of rest. It is important to continue to do the coughing and deep breathing exercises to help prevent breathing complications. Take your temperature every day. Weigh yourself at the same time every morning. ?? Driving You shouldn???t drive for at least 4 weeks from the date of discharge or if you are taking prescription pain medication Always wear a seat belt ?? Sexual Relations You may resume sexual activity as soon as you feel comfortable, usually 4 weeks after your surgery. ?? Emotions It is common for people to feel more emotional or have difficulty concentrating or remembering after major surgery. These emotions may be the result of anesthesia, medications, or stress. These feelings are generally temporary and usually go away as you get back to your normal routine and activities. ?? Pain You may have some incisional discomfort during activity. You will be given prescription medication for the pain if you need it. ? Heart and Vascular Healthy Living ?? You can make lifestyle changes that can help lower your risk for heart and vascular disease. The following information can help you get started or help maintain your current lifestyle. ?? Diet Eat a low fat, low cholesterol diet. Limit the amount of salt in your diet as well as caffeine and alcohol use. Eating 3 to 4 small meals daily may be better tolerated than 1-2 large meals daily. Monitor your weight daily to insure that you are not gaining weight; same time, same scale. ?? Exercise Routine regular or prescribed exercise is strongly encouraged Avoid strenuous exercise after meals. ?? Smoking If you smoke, you are strongly encouraged to quit Smoking can increase blood pressure, decrease exercise tolerance and increase the tendency for blood to clot, decrease HDL (good) cholesterol and creates a higher risk for having a heart attack, stroke or other vascular events. If you smoke and are ready to quit, please let us know; referrals to smoking cessation programs areavailable. ?? Lowering your cholesterol Diet and exercise may not lower your cholesterol enough. Cholesterol medicines may help prevent further cholesterol buildup in the arteries. Talk to your doctor about taking medicine for high cholesterol. ?? High blood pressure and diabetes If you have high blood pressure or diabetes, continue with your prescribed treatments. These healthproblems if not controlled can put you at risk for having a heart attack, stroke, or other vascularevents. ?? Stress Learn to manage stress with ways that fit your needs. Some stress relieving activities include meditation, deep breathing techniques and exercise. Stress that isn???t managed can prolong healing and cause other health problems. If you need help managing stress talk to your caregiver for additional resources. ? History and physical note * Olga FAIR, Theodore: PERFORM Event Display: History and Physical Hospital Authored Date: [id number] Patient: ??BONITA HATCH ? Age:??77 Years?Sex:??Female?:??1945?? HISTORY AND PHYSICAL ?? DATE:?? 08/20/2022 ? Chief Complaint A/S TAVR ?? History of Present Illness The patient is a??77-year-old??female??with PMH??NHL s/p whole chest radiation, HTN, HLD, Afib, SSSs/p pacemaker implant,??who presented with??chronic shortness of breath??and was found to have??lowflow low gradient??severe aortic stenosis. ??Echo showed severe ;??tricuspid with evidence of significant calcification with a mean gradient of??21??and a valve area of 0.83??cm?by continuity equ ation.??Mild AI, mild-mod MS (mean 5, MVA 1.8).??The patient underwent cardiac catheterization thatrevealed only mild disease without significant CAD, mean gradient 20.??She denies any PND, orthopnea, cough, chest pain, pressure, palpitations, or dizziness/lightheadedness, bleeding, dark stools orabdominal complaints.??She does not have exertional lightheadedness or syncope.??She has not been hospitalized for overt congestive heart failure. ? Review of Systems Constitutional:??No weight loss, fever, chills, weakness or fatigue. Allergy/Immune: Denies any??Eczema or hives Eyes:??No visual loss, blurred vision, double vision or yellow sclera ENT:??No hearing loss, sneezing, congestion, runny nose or sore throat. Respiratory:??No shortness of breath, cough or sputum production. Cardiovascular:??No chest pain, chest pressure or chest discomfort. No palpitations or pedal edema. Gastrointestinal:??No anorexia, nausea, vomiting or diarrhea. No abdominal pain or blood in stool. Genitourinary:??No burning micturition. No urinary frequency or incontinence. Neurologic:??No headache, dizziness, syncope, unilateral weakness, ataxia, numbness or tingling in the extremities. No change in bowel or bladder control. Musculoskeletal:??No muscle pain, back pain, joint pain or stiffness. Hematologic/Lymphatics:??No bleeding or bruising. No painful lymph nodes. Skin:??No rash or itching. Endocrine:??No reports of sweating. No cold or heat intolerance. No polyuria or polydipsia. Psychiatric:??No depression or anxiety. ?? Objective ?Vital Signs?Pulse Rate: 87 bpm (07/10/22 15:18:00) ?Respiratory Rate: 18 br/min (07/10/22 15:18:00) ?Systolic Blood Pressure: 110 mm Hg (07/10/22 15:18:00) ?Diastolic Blood Pressure: 74 mm Hg (07/10/22 15:18:00) ?Blood pressure sites: Arm, right (07/10/22 15:18:00) ?Mean Arterial Pressure: 86 mm Hg (07/10/22 15:18:00) ?Oxygen Saturation: 96 % (07/10/22 15:18:00) ?Mode of Delivery (Oxygen): Room air (07/10/22 15:18:00) ?Physical Exam ?CONST:??Appears stated age, no acute distress, alert and oriented X 3 ?EYES:??Anicteric, nl conjunctivae, EOM intact ?ENT:??Nl oropharynx ?NECK:??No evidence of JVD or HJR. Carotid impulses and upstroke normal bilaterally, no carotid bruits?CV: Regular rhythm, S1/S2.??There is a mid to late systolic crescendo decrescendo murmur noted in aortic area radiating towards carotids. ??No rubs or gallop noted. Femoral pulses nl and symmetric, no femoral bruits.??No aortic pulsation or aortic bruits. ?RESP:??Normal respiratory effort,??clear to auscultation ?GI:??Soft, non-tender and non-distended, bowels sounds normoactive, no abdominal bruits ?EXT: no??lower extremity edema,??no clubbing,??no cyanosis ?SKIN:??No rash, skin warm and dry.?NEURO:?Alert and oriented x 3, CN 2-12 grossly intact. ?? Assessment/Plan ??The patient is a 77-year-old??female with??severe aortic stenosis who presented with progressive dyspnea on exertion and now is being evaluated for aortic valve replacement. Preoperative evaluationincludes cardiac catheterization, CT TAVR and echocardiogram, which I reviewed in detail. I discussed at length the two types of aortic valve replacement, namely surgical and transcatheter, with the patient and her in my office today. Her??STS risk for mortality for an isolated aortic valvereplacement is calculated to??2.51%, which places her??in the??low??risk category, however grossly u nderestimated due to frailty, mediastinal radiation, other comorbidities.??We discussed in detail the risk of paravalvular leak, need for dual anti platelet therapy, risk of requiring pacemaker implantation, and the nursing home durability concerns with TAVR; the patient expressed understanding of these risks and wishes to pursue the transcatheter approach instead of surgical aortic valve replacement. ??She is amenable to emergency open heart surgery in the case of a complication during TAVR. Nonethe less, I believe the patient is a suitable TAVR candidate. Due to annular calcium pattern and permanent pacemaker, will consider 29 Evolut Fx if annulus deemed safe for TAVR implant. We will further discuss her??case at an upcoming multidisciplinary TAVR team meeting??and decide upon valve intervention at that time. ?? . ? Theodore Espinoza MD [facility] Cardiac Surgery?? [address], [address] [place] [address] Office: [phone] Histories Allergies Allergies ?(Active and Proposed Allergies Only) sulfa drugs? (Severity: Unknown severity, Onset: Unknown) penicillins? (Severity: Unknown severity, Onset: Unknown) ?Reactions: hives amoxicillin? (Severity: Unknown severity, Onset: Unknown) ?Reactions: hives ? Past Medical History/Problem List Active Problems??(7) Heart block AV second degree Hyperlipidemia Obese class I Osteoarthritis PAF (paroxysmal atrial fibrillation) Psoriasis TIA (transient ischemic attack) ? Past Surgical History Splenectomy Cardiac pacemaker implant Mastectomy of right breast ? Social History Tobacco Details:??Former smoker, Other: quit in my teens and was never a heavy smoker . ? Family History No family history recorded. ? Medications Home Medications Alendronate (alendronate 70 mg oral tablet)?1?tab(s)?70?Milligram?By Mouth?Every week Anastrozole (anastrozole 1 mg oral tablet)?1?tab(s)?1?Milligram?By Mouth?Daily apixaban (Eliquis 5 mg oral tablet)?1?tab(s)?5?Milligram?By Mouth?2 times a day?for 90?Days apixaban (Eliquis 5 mg oral tablet)?1?tab(s)?By Mouth?2 times a day Barium Sulfate (Readi-Cat 2 oral suspension)?450?Milliliter?9?gram?By Mouth?2 times a day?Please dispense two 450 mL bottles for a total dose that equals 900 mLs. Drink first bottle [address] and then drink second bottle [address] scan Calcium Carbonate (calcium carbonate 600 mg oral tablet)?TAKE 1 TABLET BY MOUTH TWICE DAILY Cevimeline (cevimeline 30 mg oral capsule)?1?capsule?30?Milligram?By Mouth?3 times a day Cholecalciferol (Vitamin D3 oral tablet)?1?tab(s)?10?Microgram?By Mouth?Daily Ferrous Sulfate (FeroSul 325 mg oral tablet)?TAKE 1 TABLET BY MOUTH EVERY DAY Fluorometholone Ophthalmic (fluorometholone 0.1% ophthalmic suspension)?1?Drops?Eyes, Both?4 times a day Levothyroxine (levothyroxine 0.1 mg oral tablet)?1?tab(s)?0.1?Milligram?By Mouth?Daily Metoprolol (metoprolol 25 mg oral tablet)?25?Milligram?1?tablet?By Mouth?2 times a day Ocular Lubricant (Systane ophthalmic solution)?1?Drops?Eyes, Both?3 times a day?as needed?as needed for dry eyes Ocular Lubricant (Refresh PM - ointment)?1?alyssa?Eyes, Both?Daily at bedtime?as needed?for dry eyes Simvastatin (simvastatin 40 mg oral tablet)?1?tab(s)?40?Milligram?By Mouth?Daily at bedtime?for 30?Days Trazodone (traZODone 50 mg oral tablet)?25?Milligram?0.5?tablet?By Mouth?Daily atbedtime ? Results Recent Labs No labs resulted between 07/10/2022 00:00 and 07/11/2022 11:56? EKG study * Event Display: ECG 12-Lead Authored Date: Please click on pdf link to open report * Event Display: ECG 12-Lead Authored Date: Ventricular Rate: 67 BPM Atrial Rate: 67 BPM P-R Interval: 164 ms QRS Duration: 128 ms Q-T Interval: 458 ms QTC Calculation(Bazett): 483 ms P Sterling: 57 degrees R Sterling: -65 degrees T Sterling: 68 degrees atrial-sensed ventricular-paced complexes Abnormal ECG When compared with ECG of 20-AUG-2022 07:04, No significant change was found Confirmed by DESHAWN NGUYEN MD ([id number]) on 08/21/2022 7:30:39 AM [place]: DESHAWN NGUYEN MD * Event Display: ECG 12-Lead Authored Date: [id number] Please click on pdf link to open report * Event Display: ECG 12-Lead Authored Date: [id number] Ventricular Rate: 67 BPM Atrial Rate: 67 BPM P-R Interval: 170 ms QRS Duration: 136 ms Q-T Interval: 450 ms QTC Calculation(Bazett): 475 ms P Sterling: 58 degrees R Sterling: -58 degrees T Sterling: 102 degrees Atrial-sensed ventricular-paced rhythm Abnormal ECG When compared with ECG of 26-JUN-2022 07:12, Vent. rate has decreased BY 9 BPM Confirmed by VAIBHAV HARTMAN ([id number]) on 08/20/2022 4:16:21 PM [place]: VAIBHAV HARTMAN Heart * Event Display: Echocardiogram - Complete Authored Date: [id number] Transthoracic Echocardiography Report (TTE) Patient Demographics Patient Name BONITA HATCH Date of Study 08/21/2022 Corporate Gender Female Facility Race Ethnicity Date of 1945 Height: 62.99 inches Age 77 year(s) Weight: 176.37 pounds Accession Number [id number] BSA: 1.83 m2 Room Number [id number] BMI: 31.25 kg/m2 Referring Physician Arslan Kidd Physician Virgilio MYLES Technical Business Analyst Marianne Brown [facility] Indications Aortic stenosis and Prosthetic valve function. Clinical History Hypercholesterolemia. Dyslipidemia. Prior Heart Failure s/p chest wall radiation Hyperlipidemia. Atrial fibrillation. SSS- s/p Pacemaker. Obesity. TIA Former tobacco use. Previous aortic valve replacement (TAVR 29 mm Medtronic Evolut FX) 08/20/2022 Hx non-Hodgkin lymphoma Study Data Type of Study TTE procedure:Echo Complete-Doppler, Colorflow, M-Mode. Procedure Information:TAVR s/p day 1 Study Date08/21/2022 Start Time: 08:18 AM Study Location: [facility] [place] Adult Echo Study Status: Bedside Patient Status: Routine Technical Quality: Technically difficult due to body habitus. Blood Pressure:126/69 mmHg EKG: Sinus with ectopy HR: 63 bpm Allergies - Penicillins. - Sulfa drugs. 2D Measurements LV Diastolic Dimension: 5 cm LV Systolic Dimension: 3.8 cm LV Septum Diastolic: 0.7 cm LV PW Diastolic: 1 cm AO Root Dimension: 2.2 cm LA Dimension: 4.2 cm LVOT Stroke Volume: 40.44 ml LVOT: 1.8 cm Stroke Volume Index22.1 ml/m2 Ascending Aorta:2.5 cm Cardiac Index:1.39 l/min/m2 Doppler Measurements AV Peak Velocity: 157 cm/s MV Peak E-Wave: 159 cm/s AV Peak Gradient: 9.86 mmHg MV Peak A-Wave: 164 cm/s AV Mean Gradient: 6 mmHg MV E/A Ratio: 0.97 AV VTI:33.6 cm MV P1/2t: 164 msec LVOT Peak Velocity: 87.1 cm/s MV Mean Gradient: 6 mmHg LVOT VTI15.9 cm MV Area (continuity): 0.83 cm2 AV Area (Continuity):1.2 cm2 MV Deceleration Time: 295 msec MV Area (PHT): 1.34 cm2 TR Velocity:222 cm/s TR Gradient:19.71 mmHg PV Peak Velocity: 75.6 cm/s PV Peak Gradient: 2.29 mmHg E' Septal Velocity: 4.03 cm/s E' Lateral Velocity: 5.66 cm/s E/Med E':39.55564 E/Lat E':28.31629 Cardiac Anatomy Left Ventricle/Interventricular Septum The left ventricular size is normal. The left ventricular wall thickness is upper normal. The LV systolic function is normal . The left ventricular ejection fraction is 60-65 %. There are no regional wall motion abnormalities. Unable to assess diastolic function due to mitral stenosis . Left Atrium/Interatrial Septum The left atrium is moderately dilated. Aortic Valve There is a bioprosthetic valve in the aortic position(TAVR #29). The peak gradient across the valve is 11mmHg with a mean gradient of 6mmHg and a dimensionless index of 0.5. There is mild paravalvular prosthetic regurgitation. Mitral Valve The mitral valve appears severely thickened and calcified with restricted excursion. The mean diastolic gradient across the valve is 6mmHg at 73bpm, consistent with mild mitral stenosis(valve area 1.3 by P 1/2). There is trace to mild mitral regurgitation. Aorta The ascending aorta and aortic root are normal in size. Right Ventricle The right ventricle is normal in size and function. A pacer/ICD wire is seen in the right ventricle. Right Atrium The right atrium is mildly dilated. Right atrial pacemaker lead is present. Pulmonic Valve The pulmonic valve is poorly visualized. The pulmonic valve is functionally normal. Tricuspid Valve The tricuspid valve is poorly visualized. There is mild tricuspid valve regurgitation. Pumonary Artery The pulmonary artery systolic pressure estimation is within normal limits. The pulmonary artery systolic pressure estimation is 25-30 mmHg. Venous Structures The inferior vena cava appears normal. Pericardium/Extracardiac There is no pericardial effusion. Summary The left ventricular size is normal. The left ventricular wall thickness is upper normal. The LV systolic function is normal . The left ventricular ejection fraction is 60-65 %. There are no regional wall motion abnormalities. Unable to assess diastolic function due to mitral stenosis . The right ventricle is normal in size and function. A pacer/ICD wire is seen in the right ventricle. The left atrium is moderately dilated. There is a bioprosthetic valve in the aortic position(TAVR #29). The peak gradient across the valve is 11mmHg with a mean gradient of 6mmHg and a dimensionless index of 0.5. There is mild paravalvular prosthetic regurgitation. The mitral valve appears severely thickened and calcified with restricted excursion. The mean diastolic gradient across the valve is 6mmHg at 73bpm, consistent with mild mitral stenosis(valve area 1.3 by P 1/2). There is trace to mild mitral regurgitation. There is mild tricuspid valve regurgitation. The pulmonary artery systolic pressure estimation is within normal limits. The pulmonary artery systolic pressure estimation is 25-30 mmHg. Comparison Comparison is made to the study of August 20, 2022. A aortic bioprosthetic valve is now present with normal gradients and mild paravalvular regurgitation. Signature * Event Display: Echocardiogram - Complete Authored Date: [id number] * Event Display: Echocardiogram - Complete Authored Date: [id number] Transthoracic Echocardiography Report (TTE) Patient Demographics Patient Name BONITA HATCH Date of Study 08/20/2022 Corporate Gender Female Facility Race Ethnicity Date of 1945 Height: 62.99 inches Age 77 year(s) Weight: 176.37 pounds Accession Number [id number] BSA: 1.83 m2 Room Number [id number] BMI: 31.25 kg/m2 Referring Physician Jose Gambino MD Interpreting Ursula Crump MD Physician Technical Business Analyst Evelyne Danielle [facility] Indications Aortic valve disease, non-rheumatic. Clinical History s/p 29mm Evolut FX TAVR Study Data Type of Study TTE procedure:Echo 2D Limited or Follow-up, Colorflow, Doppler Follow-up or Limited. Study Date08/20/2022 Start Time: 09:26 AM Study Location: [facility] [place] Adult Echo Study Status: shift lab technician Patient Status: Routine Technical Quality: Limited Allergies - Penicillins. - Sulfa drugs. Doppler Measurements AV Peak Velocity: 131 cm/s AV Peak Gradient: 6.86 mmHg AV Mean Gradient: 3 mmHg AV VTI:25.7 cm Cardiac Anatomy Aortic Valve s/p TAVR. Mild regurgitation. Mean Pg 3 mmHg. Summary Limited study s/p TAVR. Mild regurgitation. Mean Pg 3 mmHg. Recommendation Recommend complete study. Comparison Comparison is made to the study of August 06, 2022. [facility] Progress note * Lo Wheeler: PERFORM, SIGN, VERIFY Event Display: Progress Note Hospital Authored Date: [id number] Patient: BONITA HATCH Age: 77 years Sex: Female : 1945 Associated Diagnoses: None Author: Lo Wheeler Findings Problem Related to Alteration in Cardiac Function (new) : Alteration in Cardiac Function/new 08/20/2022 18:00 EDT Alteration in Cardiac Status Related to Cardiac Procedure Goals & Outcomes, Cardiac Status Pt will resume/maintain adequate cardiac output, Pt will resume/maintain adequate hemodynamic status, Pt will resume/maintain adequate respiratory function, Pt will state understanding of cardiac surgery education Cardiac Interventions Implemented Assess/monitor cardiac status, Assess/monitor neuro status, Assess/monitor respiratory status, Assess procedure site for distal pulses BH Goals/Interventions, Cardiac Yes Cardiac, Problem Start 08/20/2022 18:58 Reviewed Plan with, Cardiac Status Patient Patient Progression, Cardiac Status Plan Initiation . Nursing Data Cardiac Data. : Cardiac Data. 08/20/2022 14:00 EDT Cardiac Rhythm Paced Radial Pulse, Left Normal Radial Pulse, Right Normal Posttibial Pulse, Left Doppler Posttibial Pulse, Right Doppler Dorsalis Pedis Pulse, Left Doppler Dorsalis Pedis Pulse, Right Doppler shelter monitor Yes Cardiovascular WNL except . Vital Signs : VITAL SIGNS SECTION 08/20/2022 16:46 EDT Temperature 97.9 DegF Temperature Route Oral Pulse Rate 65 bpm Respiratory Rate 18 br/min Systolic Blood Pressure 147 mm Hg H Diastolic Blood Pressure 71 mm Hg Blood pressure sites Arm, left Mean Arterial Pressure 96 mm Hg Pulse Pressure 76 mm Hg Oxygen Saturation 97 % Mode of Delivery (Oxygen) Room air 08/20/2022 13:48 EDT Temperature 97.5 DegF Temperature Route Oral Pulse Rate 65 bpm Respiratory Rate 18 br/min Systolic Blood Pressure 170 mm Hg H Diastolic Blood Pressure 76 mm Hg Blood pressure sites Arm, left Mean Arterial Pressure 107 mm Hg Pulse Pressure 94 mm Hg Oxygen Saturation 96 % Mode of Delivery (Oxygen) Room air . Evaluation is A&Ox4. VSS. Denies pain. On tele, AV paced. +PP doppler x6. LS CTA on RA. Denies SOB or CP. Abd SNT +BS. R groin w/ DSD intact. R wrist w/ new DSD intact, TR band removed w/ no issues. Patient remains safe w/ call crowell w/in reach, bed locked in the lowest position, bed alarm on, frequent rounding. Will continue to monitor for safety. For more assessments, vitals, biophysical, see CIS. Deprecated Cardiac rehabilitation treatment plan Progress note and attainment of goals (narrative) * Teressa Barreto: PERFORM, SIGN, VERIFY Event Display: Cardiac Rehab Note Authored Date: [id number] Patient: BONITA HATCH Age: 77 years Sex: Female : 1945 Associated Diagnoses: None Author: Teressa Barreto Diagnosis Cardiac Rehab Diagnosis: TAVR. Pre-exercise Vitals Vital Signs: 70'S paced HR. Vital Signs Comment: Reviewed in CIS. Pre-exercise Physical Examination Neurologic: alert & oriented. Activity Symptoms with Cardiac Rehab Symptoms: No exertional symptoms. Activity Activity tolerance: Change in activity tolerance increased. Transfers: independent. Ambulate: independent. Assistive Devices Assistive Device: None. Compliance problems: Compliance problems: exercise. . Patient Education Education: Patient alone, Post procedure guidelines, Importance of Cardiac Rehab, patient plans to attend. Education topic Teachback comprehension 100% Topic: Medication education, Role of exercise, Home activity guidelines/limits. Reinforcement needed: Medication education, Role of exercise, Home activity guidelines/limits. Recommendation and Plan Encourage: AROM, All education with family present. Patient may benefit from: all education completed with patient at bedside. Outpatient follow up recommended: [facility], in 4 weeks, soonest appoitment was 09/18/22 10:30am. Cardiac Rehab: Will sign off at this time, Please contact us if we can provide further assistance with this patient, [phone]. Portable XR Chest Views * BHSPowerscribe , CIS S: TRANSCRIBE Chava Schroeder MD, V: VERIFY Event Display: Result: Authored Date: [id number] Chest Portable Reason: Postop; S P TAVR; Clinical Question(s): Other:; Cardiac Tamponade COMPARISON: Multiple prior examinations the most recent dated 08/20/2022 at 1:25 PM. FINDINGS: LINES AND TUBES: Triple lead left subclavian transvenous pacemaker in place with intact leads. LUNGS AND PLEURA: Slightly low lung volumes. Clear lungs. Normal pulmonary vascularity. No pleural effusion. No pneumothorax. HEART, MEDIASTINUM AND BHARATI: Heart is normal in size. Status post TAVR unchanged. Normal mediastinal and hilar contour. BONES AND SOFT TISSUES: No acute abnormality. Vertebroplasties or kyphoplasties at T11 and T12. Moderate degenerative change at both shoulders. IMPRESSION: No significant interval change. WSN: [id number] Ordering Physician: Bernabe Davis Dictated By: Chava Schroeder MD, V Dictated Date/Time: 08/21/22 9:07 am Reviewed By: Chava Schroeder MD, V Signed By: Chava Schroeder MD, V Signed Date/Time: 08/21/22 9:07 am Transcribed By: JULIO Transcribed Date/Time: 08/21/22 9:04 am * MARIA L Ortiz S: TRANSCRILorne Salcido MD: VERIFY Event Display: Result: Authored Date: [id number] AP semiupright portable chest dated August 20, 2022 at 1325 hours. Comparison films are from April 23, 2020. HISTORY: Status post TAVR. FINDINGS: The cardiac silhouette is within normal limits for size. A pacemaker is present on the left. Wires extend to overlie the heart. A transarterial prosthetic aortic valve is present. Its position is within normal limits. No airspace infiltrate or pleural effusion is identified. Degenerative changes are noted in the spine. There are vertebral plasties present at T11 and T12. Examination 41224. Thank you for allowing me to participate in the care of this patient. WSN: [id number] Ordering Physician: Bernabe Davis Dictated By: Lorne Musa MD Dictated Date/Time: 08/20/22 2:26 pm Reviewed By: Lorne Musa MD Signed By: Lorne Musa MD Signed Date/Time: 08/20/22 2:26 pm Transcribed By: JULIO Transcribed Date/Time: 08/20/22 2:26 pm Patient Care team information Care Team Personnel Name: Demetrius Cote MD Position: [facility] Oncology MD Member Role: PCP Address: Address: [address] [place] [address] [address] Demetrius Cote III, MD [place], [place] [address] Name: Lo Wheeler Position: [facility] RN Member Role: Primary Care Nurse Name: Lizabeth Manzano MA Position: [facility] Ambulatory Clinician Member Role: Primary Care Nurse Care Team Related Persons Name: WENDY HATCH Address: home [address] [place] [address] Name: YAQUELIN HATCH Address: home [address] [place] [address]
--- OUTSIDE RECORDS SUMMARY | 2023-11-14 09:19 | XMS_ITS | Continuity of Care Document ---
Author Organization [facility] C ancer Care Address [address] [place] [address]- Care Team Providers Care Lead Embedded Software Engineer Name Role Phone Kera FAIR, Demetrius Alvarado Primary Care Physician [phone] [id number] Date(s): 07/08/19 - 07/18/19 [facility] [address] [place] [address]- [facility] Attending Physician: Raúl Enrique Admitting Physician: Raúl Enrique Referring Physician: AdmRaúl arroyo Allergies, Adverse Reactions, Alerts Substance Reaction Severity [...]
--- OUTSIDE RECORDS SUMMARY | 2023-11-14 09:19 | XMS_ITS | Continuity of Care Document ---
Author Organization [facility] ter Address [address] [place] [address]- Care Team Providers Care Mud Analysis Well Logging Operator Name Role Phone Demetrius Cote MD Primary Care Physician [phone] Encounter [facility] [place] Date(s): 02/05/20 - 03/12/[address] [address]- Attending Physician: Kieran Jo MD Admitting Physician: Kieran Jo MD Allergies, Adverse Reactions, Alerts Substance Reaction [...] 3 Refills, Maintenance, 08/20/19 15:36:00 EDT, Tablet, [facility][id number], 157.48, cm, 07/14/19 9:54:00 EDT, Height, 80, [...]
--- OUTSIDE RECORDS SUMMARY | 2023-11-14 09:19 | XMS_ITS | Continuity of Care Document ---
Author Organization [facility] Address [address] [place] [address]- Care Team Providers Care Mid Wife Name Role Phone Demetrius Cote MD Primary Care Physician [phone] Encounter [facility] [place] Date(s): 12/20/21 - 01/19/22 [facility] [address] [place] [address]- Allergies, Adverse Reactions, Alerts Substance Reaction Severity [...] 3 Refills, Maintenance, 04/24/21 9:50:00 EST, Tablet, [facility] #[id number], 158, cm, 11/14/20 9:57:00 EDT, Height, 83, [...] heavy smoker ; entered on: 06/23/15 Sex Care Team Personnel Name: Demetrius Cote MD Address: [address] [place] [address] [address] Demetrius Cote III, MD [place], [place] [address]
--- OUTSIDE RECORDS SUMMARY | 2023-11-14 09:19 | XMS_ITS | Continuity of Care Document ---
Author Organization [facility] Address [address] [place] [address]- Care Team Providers Care Vocational Nurse Name Role Phone Demetrius Cote MD Primary Care Physician [phone] [place] [facility] [place](s): 09/24/22 - 10/24/22 [facility] [address] [place] [address]- [place] Allergies, Adverse Reactions, Alerts Substance Reaction [...] 08/21/22 14:15:00 EDT, Route to Pharmacy Electronically, [facility][id number], Partial fill upon patient request if the prescription is for a schedule II... Start Date: 08/21/22 Status: Ordered Eliquis 5 mg oral tablet 1 tablet, By Mouth, 2 times a day, # 180 tablet, 3 Refills, Maintenance, 04/10/22 8:09:00 EST, [facility] #[id number], 158, cm, 01/24/22 7:58:00 EDT, Height, 79.5, [...] Team Personnel Name: Demetrius Cote MD Position: [facility] Physician - Oncology Member Role: PCP Address: Address: [address] [place] [address] [address] Demetrius Cote III, MD [place], [place] [address] Name: Lo Wheeler Position: [facility] RN Member Role: Primary Care Nurse Care Team Related Persons Name: WENDY HATCH Address: [address] [place] [address] Name: YAQUELIN HATCH Address: home [address] [place] [address]
--- OUTSIDE RECORDS SUMMARY | 2023-11-14 09:20 | XMS_ITS | Continuity of Care Document ---
Author Organization [facility] Gastroenter [facility] Address [address] [place] [address]- Care Team Providers Care Pharmacy Clinical Specialist Name Role Phone Demetrius Cote MD Primary Care Physician En[place] [facility] [place] [place] [id number] Date(s): 06/06/21 - 07/06/21 [facility] [address] [place] [address]- Attending Physician: Raúl Enrique Admitting Physician: Raúl [...] 3 Refills, Maintenance, 04/24/21 9:50:00 EST, Tablet, [facility] #[id number], 158, cm, 11/14/20 9:57:00 EDT, Height, 83, [...]
--- OUTSIDE RECORDS SUMMARY | 2023-11-14 09:20 | XMS_ITS | Continuity of Care Document ---
Author Organization [facility] Card[facility] Address [address] [place] [address]- Care Team Providers Care Technology Coach Name Role Phone Kera FARI, Demetrius Alvarado Primary Care Physician [phone] [place] [facility] [place] Date(s): 01/01/20 - 01/31/20 [facility] [address] [place] [address]- [facility] Allergies, Adverse Reactions, Alerts Substance Reaction Severity [...] 3 Refills, Maintenance, 08/20/19 15:36:00 EDT, Tablet, [facility] #[id number], 157.48, cm, 07/14/19 9:54:00 EDT, Height, 80, kg, 07/14/19 9:54:00 EDT, Dry Weight Start Date: 08/20/19 Stop Date: 08/14/20 Status: Ordered Evoxac 30 mg oral capsule 1 capsule = 30 mg, By Mouth, 3 times a day, # 270 capsule, 0 Refills, Maintenance, Capsule Start Date: 6/8/12 Status: Ordered fluorometholone 0.1% ophthalmic suspension 1 [...]
--- OUTSIDE RECORDS SUMMARY | 2023-11-14 09:20 | XMS_ITS | Continuity of Care Document ---
Author Organization [facility] Address [address] [place] [address]- Care Team Providers Care Tuck Pointer Name Role Phone Kera FAIR, Demetrius Alvarado Primary Care Physician [phone] Encounter [facility] [place] Date(s): 01/01/20 - 01/31/20 [facility] [address] [place] [address]- [facility] Allergies, Adverse Reactions, Alerts Substance Reaction [...] 3 Refills, Maintenance, 08/20/19 15:36:00 EDT, Tablet, [facility] #[id number], 157.48, cm, 07/14/19 9:54:00 EDT, Height, 80, [...]
--- OUTSIDE RECORDS SUMMARY | 2023-11-14 09:20 | XMS_ITS | Continuity of Care Document ---
Author Organization [facility] Address [address] [place] [address]- Care Team Providers Care Gearcase Assembler Name Role Phone Demetrius Cote MD Primary Care Physician [phone] [place] [facility] [place]s): 11/02/22 - 12/02/22 [facility] [address] [place] [address]- [place] Allergies, Adverse Reactions, Alerts Substance Reaction [...] 08/21/22 14:15:00 EDT, [facility] to [facility]acy [facility]ically[id number], Partial fill upon patient request if the prescription is for a schedule II... Start Date: 08/21/22 Status: Ordered Eliquis 5 mg oral tablet 1 tablet, By Mouth, 2 times a day, # 180 tablet, 3 Refills, Maintenance, 04/10/22 8:09:00 EST, [facility] #[id number], 158, cm, 01/24/22 7:58:00 EDT, Height, 79.5, [...] MD Position: [facility] Physician - Oncology Member Role: PCP Address: Address: [address] [place] [address] [address] Demetrius Cote III, MD [address] Name: Lo Wheeler Position: [facility] RN Member Role: Primary Care Nurse Care Team Related Persons Name: WENDY HATCH Address: [address] [place] [address] Name: YAQUELIN HATCH Address: home [address] [place] [address]
--- OUTSIDE RECORDS SUMMARY | 2023-11-14 09:20 | XMS_ITS | Continuity of Care Document ---
Author Organization [facility] Address [address] [place] [address]- Care Team Providers Care Safety Lamp Keeper Name Role Phone Demetrius Cote MD Primary Care Physician Encounter [facility] [id number] Date(s): 09/02/23 - 09/02/23 [facility] [address] [place] [address]- [place] Allergies, Adverse Reactions, Alerts Substance Reaction [...] 08/21/22 14:15:00 EDT, Route to Pharmacy Electronically, [facility] #[id number], Partial fill upon patient request if the [...] tablet, 0 Refills, Maintenance, 04/05/23 9:23:00 EST, [facility] #[id number], 160, cm, 10/17/22 14:13:00 EDT, Height, 80, kg, 08/20/22 8:11:00 EDT, Dry Weight Start Date: 04/05/23 Status: Ordered Eliquis 5 mg oral tablet 1 tablet, By Mouth, 2 times a day, # 180 tablet, 3 Refills, Maintenance, 07/04/23 7:52:00 EST, [facility] #[id number], 160, cm, 10/17/22 14:13:00 EDT, Height, 80, [...] Team Personnel Name: Demetrius Cote MD Position: [facility] Physician - Oncology Member Role: PCP Address: Address: [address] [place] [address] [address] Demetrius Cote III, [place] [address]- Name: Lo Wheeler Position: [facility] RN Member Role: Primary Care Nurse Care Team Related Persons Name: WENDY HATCH Address: [address] [place] [address] Name: YAQUELIN HATCH Address: home [address] [place] [address]
--- OUTSIDE RECORDS SUMMARY | 2023-11-14 09:20 | XMS_ITS | Continuity of Care Document ---
Author Organization [facility] Address [address] [place] [address]- Care Team Providers Care Generator Assembler Name Role Phone Demetrius Cote MD Primary Care Physician [phone] Encounter [facility] [place]CT [place] [id number] Date(s): 09/12/23 - 10/12/23 [facility] [address] [place] [address]- Attending Physician: AdmRaúl arroyo Admitting Physician: Admtr, Ar8 Referring Physician: Admtr, Ar8 Allergies, Adverse Reactions, [...] 08/21/22 14:15:00 EDT, Route to Pharmacy [facility]ically, [email or web address] #[id number], Partial fill upon patient request if the [...] tablet, 0 Refills, Maintenance, 04/05/23 9:23:00 EST, [facility] #[id number], 160, cm, 10/17/22 14:13:00 EDT, Height, 80, kg, 08/20/22 8:11:00 EDT, Dry Weight Start Date: 04/05/23 Status: Ordered FeroSul 325 mg oral tablet TAKE 1 TABLET BY MOUTH EVERY DAY Start Date: 05/25/22 Status: Ordered fluorometholone 0.1% ophthalmic suspension 1 drops, Eyes, Both, 4 times a day, 0 Refills, Maintenance, 05/28/16 7:47:47 Start Date: 05/28/16 Status: Ordered Furosemide = 20 mg, By Mouth, 0 Refills, Maintenance, 09/20/23 6:37:00 EDT, Partial fill upon patient request if the prescription is for a schedule II opioid drug. Start Date: 09/20/23 Status: Ordered levothyroxine 0.1 mg oral tablet [...] opioid drug. Start Date: 04/22/20 Status: Ordered pantoprazole 40 mg oral delayed release tablet 1 tablet = 40 mg, By Mouth, Daily at bedtime, # 21 tablet, 0 Refills, Maintenance, 09/21/23 8:57:00EDT, [facility], 155, cm, 09/21/23 3:41:00 EDT, Height, 74, kg, 09/20/23 13:31:00 EDT, Dry Weight Start Date: 09/21/23 Stop Date: 10/12/23 Status: Ordered Restasis 0.05% ophthalmic emulsion 1 [...] Team Personnel Name: Demetrius Cote MD Position: [facility] Physician - Oncology Member Role: PCP Address: Address: [address] [place] [address] [address] Demetrius Cote III, MD [place], [place] [address] Name: Lo Wheeler RN Position: [facility] RN Member Role: Primary Care Nurse Care Team Related Persons Name: WENDY HATCH Address: [address] [place] [address] Name: YAQUELIN HATCH Address: home [address] [place] [address]
--- OUTSIDE RECORDS SUMMARY | 2023-11-14 09:20 | XMS_ITS | Continuity of Care Document ---
Author Organization [facility] Leonel chyna Address [address] [place] [address]- Care Team Providers Care Exchange Operator Name Role Phone eKra FAIR, Demetrius Alvarado Primary Care Physician Encounter [facility] [place] Date(s): 07/10/22 - 07/17/22 [facility] [address] [place] [address]- Attending Physician: Theodore Espinoza MD Referring Physician: Jose Gambino MD Allergies, [...] 3 Refills, Maintenance, 04/24/21 9:50:00 EST, Tablet, [facility] #[id number], 158, cm, 11/14/20 9:57:00 EDT, Height, 83, kg, 04/22/20 11:36:00 EST, Dry Weight Start Date: 04/24/21 Stop Date: 04/19/22 Status: Ordered Eliquis 5 mg oral tablet 1 tablet, By Mouth, 2 times a day, # 180 tablet, 3 Refills, Maintenance, 04/10/22 8:09:00 EST, [facility] #[id number], 158, cm, 01/24/22 7:58:00 EDT, Height, 79.5, [...] recent to oldest [Reference Range]: 1 Height 160 cm (07/10/22 3:18 PM) Weight 80.2 kg (07/10/22 3:18 PM) Oxygen Saturation [94-100 %] 96 % (07/10/22 3:18 PM) Pulse Rate [55-90 bpm] 87 bpm (07/10/22 3:18 PM) Body Mass Index [18.5-24.99 kg/m2] 31.33 kg/m2 *>HHI* (07/10/22 3:18 PM) Blood Pressure [90-138/55-84 mm Hg] 110/ 74mm Hg (07/10/22 3:18 PM) Respiratory Rate [16-30 br/min] 18 br/mi n (07/10/22 3:18 PM) Mode of Delivery (Oxygen) Room air (07/10/22 3:18 PM) Blood pressure sites Arm, right (07/10/22 3:18 PM) Weight Obtained Via Patient/family state d (07/10/22 3:18 PM) Social History Social History Type Response Smoking Status Former smoker; Other : quit in my teens and was never a heavy smoker ; entered on: 06/23/15 Sex Cardiac surgery Outpatient Note * Olga FAIR, Theodore: PERFORM Event Display: Cardiac Surgery Note Office Authored Date: [id number] Patient: ??BONITA HATCH ? Age:??77 Years?Sex:??Female?:??1945?? Chief Complaint/Reason for Consultation A/S TAVR History of Present Illness The patient is [...] been hospitalized for overt congestive heart failure. ?? Review of Systems Constitutional:??No weight loss, fever, [...] polyuria or polydipsia. Psychiatric:??No depression or anxiety. Objective Vital Signs?? Pulse Rate: 87 bpm (07/10/22 15:18:00) Respiratory Rate: 18 br/min (07/10/22 15:18:00) Systolic Blood Pressure: 110 mm Hg (07/10/22 15:18:00) Diastolic Blood Pressure: 74 mm Hg (07/10/22 15:18:00) Blood pressure sites: Arm, right (07/10/22 15:18:00) Mean Arterial Pressure: 86 mm Hg (07/10/22 15:18:00) Oxygen Saturation: 96 % (07/10/22 15:18:00) Mode of Delivery (Oxygen): Room air (07/10/22 15:18:00) ? Physical Exam CONST:??Appears stated age, no acute distress, alert and oriented X 3 EYES:??Anicteric, nl conjunctivae, EOM intact ENT:??Nl oropharynx NECK:??No evidence of JVD or HJR. Carotid impulses and upstroke normal bilaterally, no carotid bruits?? CV: Regular rhythm, S1/S2.??There is a mid to late systolic crescendo decrescendo murmur noted in aortic area radiating towards carotids. ??No rubs or gallop noted. Femoral pulses nl and symmetric, no femoral bruits.??No aortic pulsation or aortic bruits. RESP:??Normal respiratory effort,??clear to auscultation GI:??Soft, non-tender and non-distended, bowels sounds normoactive, no abdominal bruits EXT: no??lower extremity edema,??no clubbing,??no cyanosis SKIN:??No rash, skin warm and dry.?? NEURO:?Alert and oriented x 3, CN 2-12 grossly intact?? 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 ?? Thank you for this referral. ? Theodore Espinoza MD [facility]?? [address], [address] [place] [address] Office: [phone] Histories Allergies Allergies ?(Active and Proposed Allergies [...] resulted between 07/10/2022 00:00 and 07/11/2022 11:56? * Arabella Pisano MA: PERFORM, SIGN, VERIFY Event Display: Cardiac Surgery Note Office Authored Date: [id number] Patient: BONITA HATCH Age: 77 years Sex: Female : 1945 Associated Diagnoses: None Author: Arabella Pisano MA [place] Cardiomyopathy Questionnaire (CQ-12) The following questions refer to your heart failure and how it may affect your life. Please read and complete the following questions. There is no right or wrong answers. Please elzbieta the answer that best applies to you. 1. Heart failure affects different people in different ways. Some feel shortness of breath while others feel fatigue. Please indicate how much you are limited by heart failure (shortness of breath orfatigue) in your ability to do the following activities over the past 2 weeks. a. Showering/bathing: Extremely Limited (_) 1 Quite a bit limited (_) 2 Moderately Limited (_) 3 Slightly Limited (_) 4 Not at all Limited (XXX) 5 Limited for other reasons or did not do the activity (_) 6 b. Walking 1 block on level ground: Extremely Limited (_) 1 Quite a bit limited (_) 2 Moderately Limited (_) 3 Slightly Limited (XXX) 4 Not at all Limited (_) 5 Limited for other reasons or did not do the activity (_) 6 c. Hurrying or jogging (as if to catch a bus): Extremely Limited (_) 1 Quite a bit limited (_) 2 Moderately Limited (_) 3 Slightly Limited (XXX) 4 Not at all Limited (_) 5 Limited for other reasons or did not do the activity (_) 6 2. Over the past 2 weeks, how many times did you have swelling in your feet, ankles or legs when you woke up in the morning? Every Morning (_) 1 3 or more times per week but not every day (_) 2 1-2 times per week (_) 3 Less than once a week (_) 4 Never over the past 2 weeks (XXX) 5 3. Over the past 2 weeks, on average, how many times has fatigue limited your ability to do what you wanted? All of the time (_) 1 Several Times per day (_) 2 At least once a day (_) 3 3 or more times per week but not every day (_) 4 1-2 times per week (XXX) 5 Less than once a week (_) 6 Never over the past 2 weeks (_) 7 4. Over the past 2 weeks, on average, how many times has shortness of breath limited your ability to do what you wanted? All of the time (_) 1 Several Times per day (_) 2 At least once a day (_) 3 3 or more times per week but not every day (_) 4 1-2 times per week (_) 5 Less than once a week (XXX) 6 Never over the past 2 weeks (_) 7 5. Over the past 2 weeks, on average, how many times have you been forced to sleep sitting up in a chair or with at least 3 pillows to prop you up because of shortness of breath? Every night (_) 1 3 or more times per week but not every day (_) 2 1-2 times per week (_) 3 Less than once a week (_) 4 Never over the past 2 weeks (XXX) 5 6. Over the past 2 weeks, how much has your heart failure limited your enjoyment of life? It has extremely limited my enjoyment of life (_) 1 It has limited my enjoyment of life quite a bit (_) 2 It has moderately limited my enjoyment of life (_) 3 It has slightly limited my enjoyment of life (XXX) 4 It has not limited my enjoyment of life at all (_) 5 7. If you had to spend the rest of your life with your heart failure the way it is right now, how would you feel about this? Not at all satisfied (_) 1 Mostly dissatisfied (XXX) 2 Somewhat satisfied (_) 3 Mostly satisfied (_) 4 Completely satisfied (_) 5 8. How much does your heart failure affect your lifestyle? Please indicate how your heart failure may have limited your participation in the following activities over the past 2 weeks. a. Hobbies, recreational activities: Severely Limited (_) 1 Limited quite a bit (_) 2 Moderately Limited (_) 3 Slightly Limited (_) 4 Did not limit at all (_) 5 Does not apply or did not do for other reasons (XXX) 6 b. Working or doing straw hat presser: Severely Limited (_) 1 Limited quite a bit (_) 2 Moderately Limited (XXX) 3 Slightly Limited (_) 4 Did not limit at all (_) 5 Does not apply or did not do for other reasons (_) 6 c. Visiting family or friends out of your home: Severely Limited (_) 1 Limited quite a bit (_) 2 Moderately Limited (_) 3 Slightly Limited (_) 4 Did not limit at all (XXX) 5 Does not apply or did not do for other reasons (_) 6 Total Score: 54 * Arabella Pisano MA: PERFORM, SIGN, VERIFY Event Display: Cardiac Surgery Note Office Authored Date: Patient: BONITA HATCH Age: 77 years Sex: Female : 1945 Associated Diagnoses: None Author: Arabella Pisano MA TAVR Program Functional Assessment Test The KCCQ12 questionnaire was documented separately from this series of tests. A walk was performed on this patient with the following results: Walk Test- Five-meter Gait Speed #1 - 7.06 sec #2 - 6.71 sec #3 - 6.88 sec Equals = 20.67 sec Average = 6.89 sec Patient Care team information Care Team Personnel Name: Demetrius Cote MD Position: [facility] Oncology MD Member Role: PCP Address: Address: [address] [place] [address] [address] Demetrius Cote III, MD [address] Name: Lizabeth Manzano MA Position: [facility] Ambulatory Clinician Member Role: Primary Care Nurse Care Team Related Persons Name: WENDY HATCH Address: home [address] [place] [address] Name: EDILSONYAQUELIN CHANEY Address: home [address] [place] [address]
--- OUTSIDE RECORDS SUMMARY | 2023-11-14 09:20 | XMS_ITS | Continuity of Care Document ---
Author Organization [facility] Address [address] [place] [address]- Care Team Providers Care Harness Mender Name Role Phone Demetrius Cote MD Primary Care Physician Encounter [facility] Date(s): 03/10/19 - 07/08/19 [facility] [address] [place] [address]- [facility] Attending Physician: Gianni Thorne MD Admitting Physician: [...]
--- OUTSIDE RECORDS SUMMARY | 2023-11-14 09:20 | XMS_ITS | Continuity of Care Document ---
Author Organization [facility] Address [address] [place] [address]- Care Team Providers Care Immigration Paralegal Name Role Phone Demetrius Cote MD Primary Care Physician [phone] Encounter [facility] Date(s): 01/07/23 - 02/06/23 [facility] [address] [place] [address]- Attending Physician: Raúl Enrique Admitting Physician: Raúl Enrique Referring Physician: Admtr Ar8 Allergies, Adverse Reactions, Alerts Substance Reaction [...] 08/21/22 14:15:00 EDT, Route to Pharmacy Electronically, [facility] #[id number], Partial fill upon patient request if the prescription is for a schedule II... Start Date: 08/21/22 Status: Ordered Eliquis 5 mg oral tablet 1 tablet, By Mouth, 2 times a day, # 180 tablet, 3 Refills, Maintenance, 04/10/22 8:09:00 EST, [facility] #[id number], 158, cm, 01/24/22 7:58:00 EDT, Height, 79.5, [...] Team Personnel Name: Demetrius Cote MD Position: [facility] Physician - Oncology Member Role: PCP Address: Address: [address] [place] [address] [address] Demetrius Cote III, [place] [address]- Name: Lo Wheeler Position: [facility] RN Member Role: Primary Care Nurse Care Team Related Persons Name: WENDY HATCH Address: home [address] [place] [address] Name: YAQUELIN HATCH Address: home [address] [place] [address]
--- OUTSIDE RECORDS SUMMARY | 2023-11-14 09:20 | XMS_ITS | Continuity of Care Document ---
Author Organization [facility] Address [address] [place] [address]- Care Team Providers Care Vacuum Furnace Operator Name Role Phone Demetrius Cote MD Primary Care Physician [place] [facility] 09/29/19 - 01/27/20 [facility] [address] [place] [address]- [facility] Attending Physician: Gianni Thorne MD Admitting Physician: [...] 3 Refills, Maintenance, 08/20/19 15:36:00 EDT, Tablet, [facility] #[id number], 157.48, cm, 07/14/19 9:54:00 EDT, Height, 80, [...]
--- OUTSIDE RECORDS SUMMARY | 2023-11-14 09:20 | XMS_ITS | Continuity of Care Document ---
Author Organization [facility] Address [address] [place] [address]- Care Team Providers Care Maintenance Superintendent Name Role Phone Demetrius Cote MD Primary Care Physician [place] [facility] [place] 07/02[place]22 - 08/01/22 [facility] [address] [place] [address]- Attending Physician: Raúl Enrique Admitting Physician: Raúl [...] 3 Refills, Maintenance, 04/24/21 9:50:00 EST, Tablet, [facility] #[id number], 158, cm, 11/14/20 9:57:00 EDT, Height, 83, kg, 04/22/20 11:36:00 EST, Dry Weight Start Date: 04/24/21 Stop Date: 04/19/22 Status: Ordered Eliquis 5 mg oral tablet 1 tablet, By Mouth, 2 times a day, # 180 tablet, 3 Refills, Maintenance, 04/10/22 8:09:00 EST, [facility] #[id number], 158, cm, 01/24/22 7:58:00 EDT, Height, 79.5, [...] on: 06/23/15 Sex Note * Event Display: Ultrasound Abdomen, Non-BH Authored Date: * Event Display: Device Check Office Visit Authored Date: Patient Care team information Care Team Personnel Name: Demetrius Cote MD Position: [facility] Oncology MD Member Role: PCP Address: Address: [address] [place] [address] [address] Demetrius Cote III, [place] [address]- Name: Lizabeth Manzano MA Position: [facility] Ambulatory Clinician Member Role: Primary Care Nurse Care Team Related Persons Name: WENDY HATCH Address: home [address] [place] [address] Name: YAQUELIN HATCH Address: home [address] [place] [address]
--- OUTSIDE RECORDS SUMMARY | 2023-11-14 09:20 | XMS_ITS | Continuity of Care Document ---
Author Organization [facility] Address [address] [place] [address]- Care Team Providers Care Laboratory Asst Name Role Phone Demetrius Cote MD Primary Care Physician Encounter [facility] Date(s): 05/25/22 - 06/24/22 [facility] [address] [place] [address]- Attending Physician: Raúl Enrique Admitting Physician: Raúl [...] 3 Refills, Maintenance, 04/24/21 9:50:00 EST, Tablet, [facility] #[id number], 158, cm, 11/14/20 9:57:00 EDT, Height, 83, kg, 04/22/20 11:36:00 EST, Dry Weight Start Date: 04/24/21 Stop Date: 04/19/22 Status: Ordered Eliquis 5 mg oral tablet 1 tablet, By Mouth, 2 times a day, # 180 tablet, 3 Refills, Maintenance, 04/10/22 8:09:00 EST, [facility] #[id number], 158, cm, 01/24/22 7:58:00 EDT, Height, 79.5, [...] Team Personnel Name: Demetrius Cote MD Position: [facility] Oncology MD Member Role: PCP Address: Address: [address] [place] [address] [address] [place] [address] Name: Lizabeth Manzano MA Position: [facility] Ambulatory Clinician Member Role: Primary Care Nurse Care Team Related Persons Name: MAMIE WENDY Address: home [address] [place] [address] Name: YAQUELIN HATCH Address: home [address] [place] [address]
--- OUTSIDE RECORDS SUMMARY | 2023-11-14 09:20 | XMS_ITS | Continuity of Care Document ---
Author Organization [facility] ter Address [address] [place] [address]- Care Team Providers Care Parts Lister Name Role Phone Demetrius Cote MD Primary Care Physician [phone] Encounter [facility] [place] Date(s): 02/15/20 - 02/15/[address] [address]- [facility] Discharge Disposition: A-D/C Home Attending Physician: Kieran Jo MD Admitting Physician: Kieran Jo MD Referring Physician: Kieran Jo MD Allergies, Adverse Reactions, [...] 3 Refills, Maintenance, 08/20/19 15:36:00 EDT, Tablet, [facility] #[id number], 157.48, cm, 07/14/19 9:54:00 EDT, Height, 80, [...] 05/28/16 7:47:47 Start Date: 05/28/16 Status: Ordered levoFLOXacin 500 mg oral tablet 1 tablet = 500 mg, By Mouth, Every 24 hours, for 5 days, Please takle first dose tomorrow AM, # 5 tablet, 0 Refills, Acute 02/20/20 9:50:00 EDT, 02/15/20 9:50:00 EDT, Tablet, [facility] #[id number], 158, cm, 02/15/20 8:01:00 EDT, Height, 81.7, kg... Start Date: 02/15/20 Stop Date: 02/20/20 Status: Ordered levothyroxine 0.1 mg oral tablet [...] Range]: 1 2 3 Height 158 cm (02/15/20 8:01 AM) Oxygen Saturation [94-100 %] 100 % (02/15/20 9:51 AM) 97 % (02/15/20 9:41 AM) 100 % (02/15/20 8:01 AM) Pulse Rate [55-90 bpm] 95 bpm *H* (02/15/20 8:01 AM) Blood Pressure [90-138/55-84 mm Hg] 128/76mm Hg (02/15/20 9:51 AM) 115/52mm Hg (02/15/20 9:41 AM) 186/76mm Hg *H* (02/15/20 8:01 AM) Respiratory Rate [16-30 br/min] 20 br/min (02/15/20 9:51 AM) 20 br/min (02/15/20 9:41 AM) 20 br/min (02/15/20 8:01 AM) Temperature [96.8-100.4 DegF] 97.8 DegF (02/15/20 8:01 AM) Mode of Delivery (Oxygen) Room air (02/15/20 9:51 AM) Room air (02/15/20 9:41 AM) Room air (02/15/20 8:01 AM) Blood pressure sites Arm, left (02/15/20 8:01 AM) Temperature Route Temporal (02/15/20 8:01 AM) Dry Weight 81.7 kg (02/15/20 8:01 AM) Social History Social History Type Response Smoking Status Former smoker; Other : quit in my teens and was never a heavy smoker ; entered on: 06/23/15 Sex
--- OUTSIDE RECORDS SUMMARY | 2023-11-14 09:20 | XMS_ITS | Continuity of Care Document ---
Author Organization [facility] ter Address [address] [place] [address]- Care Team Providers Care Marketing Finance Specialist Name Role Phone Demetrius Cote MD Primary Care Physician [phone] [facility] [place] Date(s): 08/06/23 - 09/15/[address] [email or web address] Attending Physician: Jose Gambino MD Admitting Physician: Immanuel FAIR, Jose Referring Physician: Immanuel FAIR, Jose Allergies, Adverse Reactions, Alerts Substance Reaction Severity [...] 08/21/22 14:15:00 EDT, Route to Pharmacy Electronically, [facility] #[id number], Partial fill upon patient request if the [...] tablet, 0 Refills, Maintenance, 04/05/23 9:23:00 EST, [facility] #[id number], 160, cm, 10/17/22 14:13:00 EDT, Height, 80, kg, 08/20/22 8:11:00 EDT, Dry Weight Start Date: 04/05/23 Status: Ordered Eliquis 5 mg oral tablet 1 tablet, By Mouth, 2 times a day, # 180 tablet, 3 Refills, Maintenance, 07/04/23 7:52:00 EST, [facility] #[id number], 160, cm, 10/17/22 14:13:00 EDT, Height, 80, [...] H ealth Status Informant Hyperlipidemia Confirmed Active Osteoarthritis Confirmed Active PAF (paroxysmal [...] Team Personnel Name: Demetrius Cote MD Position: [facility] Physician - Oncology Member Role: PCP Address: Address: [address] [place] [address] [address] Demetrius Cote III, MD [place], [place] [address] Name: Lo Wheeler Position: [facility] RN Member Role: Primary Care Nurse Care Team Related Persons Name: WENDY HATCH Address: [address] [place] [address] Name: YAQUELIN HATCH Address: home [address] [place] [address]
--- OUTSIDE RECORDS SUMMARY | 2023-11-14 09:20 | XMS_ITS | Continuity of Care Document ---
Author Organization [facility] Address [address] [place] [address]- Care Team Providers Care Information Systems Security Analyst Name Role Phone Demetrius Cote MD Primary Care Physician [phone] [place] [facility] Date(s): 03/29/22 - 04/28/22 [facility] [address] [place] [address]- Attending Physician: Raúl Enrique Admitting Physician: Raúl [...] 3 Refills, Maintenance, 04/24/21 9:50:00 EST, Tablet, [facility] #[id number], 158, cm, 11/14/20 9:57:00 EDT, Height, 83, kg, 04/22/20 11:36:00 EST, Dry Weight Start Date: 04/24/21 Stop Date: 04/19/22 Status: Ordered Eliquis 5 mg oral tablet 1 tablet, By Mouth, 2 times a day, # 180 tablet, 3 Refills, Maintenance, 04/10/22 8:09:00 EST, [facility] #[id number], 158, cm, 01/24/22 7:58:00 EDT, Height, 79.5, [...] Team Personnel Name: Demetrius Cote MD Position: [facility] Oncology MD Member Role: PCP Address: Address: [address] [place] [address] [address] Demetrius Cote III, MD [place], [place] [address] Name: Lizabeth Manzano MA Position: [facility] Ambulatory Clinician Member Role: Primary Care Nurse Care Team Related Persons Name: WENDY HATCH Address: home [address] [place] [address] Name: YAQUELIN HATCH Address: home [address] [place] [address]
--- OUTSIDE RECORDS SUMMARY | 2023-11-14 09:20 | XMS_ITS | Continuity of Care Document ---
Author Organization [facility] Address [address] [place] [address]- Care Team Providers Care Womens Health Nurse Practitioner Name Role Phone Demetrius Cote MD Primary Care Physician [phone] Encounter [facility] Date(s): 12/20/21 - 01/19/22 [facility] [address] [place] [address]- Allergies, Adverse Reactions, Alerts Substance Reaction Severity [...] 3 Refills, Maintenance, 04/24/21 9:50:00 EST, Tablet, [facility] #[id number], 158, cm, 11/14/20 9:57:00 EDT, Height, 83, [...] Team Personnel Name: Demetrius Cote MD Address: [address] [place] [address] [address] Demetrius Cote III, MD [place], [place] [address]
--- OUTSIDE RECORDS SUMMARY | 2023-11-14 09:20 | XMS_ITS | Continuity of Care Document ---
Author Organization [facility] ter Address [address] [place] [address]- Care Team Providers Care Scientific Director Name Role Phone Demetrius Cote MD Primary Care Physician [phone] Encounter [facility] [id number] Date(s): 09/18/22 - 09/18/[address] [address] Discharge Disposition: A-D/C Home Attending Physician: Jose [...] 08/21/22 14:15:00 EDT, Route to Pharmacy [facility]ically, [id number], Partial fill upon patient request if the prescription is for a schedule II... Start Date: 08/21/22 Status: Ordered Eliquis 5 mg oral tablet 1 tablet, By Mouth, 2 times a day, # 180 tablet, 3 Refills, Maintenance, 04/10/22 8:09:00 EST, [facility] #[id number], 158, cm, 01/24/22 7:58:00 EDT, Height, 79.5, [...] heavy smoker ; entered on: 06/23/15 Sex Deprecated Cardiac rehabilitation treatment plan Progress note and attainment of goals (narrative) * Maci Hawley: PERFORM, SIGN, VERIFY Event Display: Cardiac Rehab Note Authored Date: Patient: BONITA CHEUNG Age: 77 years Sex: Female : 1945 Associated Diagnoses: None Author: Maci Hawley Bonita Cheung was scheduled for an orientation appointment this morning. She preferred to attend cardiac rehab at [facility] as it's closer to her home. She was given the phone number to their program and was going to call Dr. Thorne's office to send over a new order to their program. Please call [phone] with any questions. Note * Event Display: Cardiac Rehab Telemetry Report Authored Date: Patient Care team information Care Team Personnel Name: Demetrius Cote MD Position: [facility] Oncology MD Member Role: PCP Address: Address: [address] Demetrius Cote III, [place] [address]- Name: Lo Wheeler Position: S RN Member Role: Primary Care Nurse Care Team Related Persons Name: WENDY CHEUNG Address: home [address] [place] [address] Name: YAQUELIN CHEUNG Address: home [address] [place] [address]
--- OUTSIDE RECORDS SUMMARY | 2023-11-14 09:20 | XMS_ITS | Continuity of Care Document ---
Author Organization [facility] Address [address] [place] [phone]- Care Team Providers Care Marketing Database Consultant Name Role Phone Demetrius Cote MD Primary Care Physician Encounter [facility] Date(s): 10/10/22 - 11/09/22 [facility] [address] [place] [id number] [place] Allergies, Adverse Reactions, Alerts Substance Reaction [...] 08/21/22 14:15:00 EDT, Route to Pharmacy Electronically, [id number], Partial fill upon patient request if the prescription is for a schedule II... Start Date: 08/21/22 Status: Ordered Eliquis 5 mg oral tablet 1 tablet, By Mouth, 2 times a day, # 180 tablet, 3 Refills, Maintenance, 04/10/22 8:09:00 EST, [id number], 158, cm, 01/24/22 7:58:00 EDT, Height, 79.5, [...] Team Personnel Name: Demetrius Cote MD Position: [facility] Physician - Oncology Member Role: PCP Address: Address: [address] [place] [address] [phone] Demetrius Cote III, MD [address] Name: Lo Wheeler Position: [facility] RN Member Role: Primary Care Nurse Care Team Related Persons Name: WENDY HATCH Address: home [address] [place] [address] Name: YAQUELIN HATCH Address: home [address] [place] [address]
--- OUTSIDE RECORDS SUMMARY | 2023-11-14 09:20 | XMS_ITS | Continuity of Care Document ---
Author Organization [facility] Address [address] [place] [id number]- Care Team Providers Care Deck Lid Fitter Name Role Phone Demetrius Cote MD Primary Care Physician [phone] [place] [facility] [place] - 09/21/[address] [address] Discharge Disposition: A-D/C Home Attending Physician: Gianni [...] 10/14/11 Given 1Early/Late Reason: Nursing Judgment Medications Acetaminophen Tablet 650 mg, Tablet, By Mouth, Every 6 hours, PRN for Pain , Mild, Routine, 09/20/23 12:35:00 EDT Start Date: 09/20/23 Stop Date: 09/21/23 Status: Discontinued alendronate 70 mg oral tablet 1 tablet [...] 08/21/22 14:15:00 EDT, Route to Pharmacy Electronically, [facility] #[id number], Partial fill upon patient request if the [...] tablet, 0 Refills, Maintenance, 04/05/23 9:23:00 EST, [facility] #[id number], 160, cm, 10/17/22 14:13:00 EDT, Height, 80, [...] oral tablet 25 mg, Tablet, By Mouth, 09/21/23 9:00:00 EDT Start Date: 09/21/23 Stop Date: 09/21/23 Status: Completed metoprolol 25 mg oral tablet 25 mg, [...] oldest [Reference Range]: 1 2 3 Height 155 cm (09/21/23 11:46 AM) 155 cm (09/21/23 3:41 AM) 155 cm (09/20/23 8:40 PM) Weight 76.0 kg (09/21/23 3:41 AM) 76.0 kg (09/20/23 1:31 PM) 74.8 kg (09/20/23 6:20 AM) Oxygen Saturation [94-100 %] 94 % (09/21/23 11:46 AM) 95 % (09/21/23 7:00 AM) 93 % *L* (09/21/23 3:41 AM) Pulse Rate [55-90 bpm] 60 bpm (09/21/23 11:46 AM) 63 bpm (09/21/23 8:01 AM) 63 bpm (09/21/23 7:00 AM) Body Mass Index [18.5-24.99 kg/m2] 31.63 kg/m2 *>HHI* (09/21/23 3:41 AM) 31.63 kg/m2 *>HHI* (09/20/23 1:31 PM) 31.13 kg/m2 *>HHI* (09/20/23 6:20 AM) Blood Pressure [90-138/55-84 mm Hg] 109/57mm Hg (09/21/23 11:46 AM) 125/50mm Hg (09/21/23 8:01 AM) 125/50mm Hg (09/21/23 7:00 AM) Respiratory Rate [16-30 br/min] 18 br/min (09/21/23 11:46 AM) 16 br/min (09/21/23 9:00 AM) 18 br/min (09/21/23 7:00 AM) Temperature [96.8-100.4 DegF] 97.9 DegF (09/21/23 11:46 AM) 97.6 DegF (09/21/23 7:00 AM) 98.2 DegF (09/21/23 3:41 AM) Liters per Minute 4 L/min (09/20/23 1:00 PM) 4 L/min (09/20/23 12:45 PM) 4 L/min (09/20/23 12:30 PM) Mode of Delivery (Oxygen) Room air (09/21/23 11:46 AM) Room air (09/21/23 7:00 AM) Room air (09/21/23 3:41 AM) Blood pressure sites Arm, left (09/21/23 11:46 AM) Arm, left (09/21/23 7:00 AM) Arm, right (09/21/23 3:41 AM) Temperature Route Axillary (09/21/23 11:46 AM) Oral (09/21/23 7:00 AM) Oral (09/21/23 3:41 AM) Dry Weight 74.0 kg (09/20/23 1:31 PM) Weight Obtained Via Bed scale (09/21/23 3:41 AM) Social History Social History Type Response Smoking Status Former smoker; Other : quit in my teens and was never a heavy smoker ; entered on: 06/23/15 Sex Note * Inna Macedo RN: PERFORM Event Display: Discharge/Transfer Note Hospital Authored Date: [id number] Nursing Discharge Note Entered On: 09/21/2023 14:07 EDT Performed On: 09/21/2023 14:07 EDT by Inna Macedo RN Nursing Discharge Note 2 Discharge Time : 09/21/2023 14:07 EDT Discharge Level of Care at Discharge : Home/Fci/Foster Care Patient Left Unit Via : Wheelchair Patient Accompanied Off Unit with : Significant other DC Instructions Provided & Signed by Pt : Yes Patient Understands D/C Instructions : Yes Patient Instructions Discharge Signed : Yes Did Pt have Specialty Bed or Wound Vac : No Hellen SLOAN, Inna - 09/21/2023 14:07 EDT * Andry Keating MD: PERFORM Event Display: Discharge/Transfer Note Hospital Authored Date: [id number] Patient: ??BONITA HATCH ? Age:??78 Years?Sex:??Female?:??1945?? Patient Information Discharge Location: Primary Care Physician: Demetrius Cote MD Admit Date/Time: 09/20/23 05:57 Discharge Disposition Discharge Disposition: Home: No Services Discharge Diagnosis ??Atrial fibrillation status post ablation _ Discharge Medications Alendronate (alendronate 70 mg oral tablet)?1?tab(s)?70?Milligram?By Mouth?Every week amiODARONE (amiodarone 200 mg oral tablet)?200?Milligram?1?tablet?By Mouth?Daily apixaban (Eliquis 5 mg oral tablet)?1?tab(s)?By Mouth?2 times a day Aspirin (aspirin 81 mg oral delayed release tablet)?81?Milligram?1?tablet?By Mouth?Daily Calcium And Vitamin D Combination (Calcium 600 +D)?By Mouth Cholecalciferol (Vitamin D3 oral tablet)?1?tab(s)?10?Microgram?By Mouth?Daily Cyclosporine Ophthalmic (Restasis 0.05% ophthalmic emulsion)?1?Drops?Every 12 hours Ferrous Sulfate (FeroSul 325 mg oral tablet)?TAKE 1 TABLET BY MOUTH EVERY DAY Fluorometholone Ophthalmic (fluorometholone 0.1% ophthalmic suspension)?1?Drops?Eyes, Both?4 times a day Furosemide?20?Milligram?By Mouth Levothyroxine (levothyroxine 0.1 mg oral tablet)?1?tab(s)?0.1?Milligram?By Mouth?Daily Metoprolol (metoprolol 25 mg oral tablet)?25?Milligram?1?tablet?By Mouth?2 times a day Pantoprazole (pantoprazole 40 mg oral delayed release tablet)?1?tab(s)?40?Milligram?By Mouth?Daily at bedtime?for 21?Days Simvastatin (simvastatin 40 mg oral tablet)?1?tab(s)?40?Milligram?By Mouth?Daily at bedtime?for 30?Days Trazodone (traZODone 50 mg oral tablet)?25?Milligram?0.5?tablet?By Mouth?Daily atbedtime Trazodone (traZODone 150 mg oral tablet)?1?tab(s)?150?Milligram?By Mouth?Daily atbedtime ? Medications Started Pantoprazole??40 mg daily??for 3 weeks Allergies Allergies ?(Active and Proposed Allergies Only) sulfa drugs? (Severity: Unknown severity, Onset: Unknown) penicillins? (Severity: Unknown severity, Onset: Unknown) ?Reactions: hives amoxicillin? (Severity: Unknown severity, Onset: Unknown) ?Reactions: hives ? Future Appointments Saturday 1:20 PM EDT ?? [facility] [address] [place] [id number]- Status: Pending 2023 3:15 PM EDT ?? With: Fede Quezada Where: [facility] [address] [place] [address]- Status: Pending Hospital Course 78 year old female with PMH significant for known history of severe symptomatic aortic stenosis, status post successful transcatheter aortic valve replacement by us on August 20, 2022. She received a 29 mm bioprosthetic evolute FX TAVR valve via right common femoral's catheter approach. Before the procedure she had symptomatic low-flow, low gradient paradoxical severe aortic stenosis, NYHA class III dyspnea on exertion, history of lymphoma and mild mitral stenosis. She had chest radiation and also had mild pulmonary hypertension by invasive hemodynamics. There is a history of paroxysmal A-fib and possible sick sinus syndrome and high-grade AV block. She received a dual-chamber pacemaker place ment in the past.?In the setting of high atrial fibrillation burden, patient saw EP outpatient??and the decision was to proceed??for catheter ablation. Patient presents for??elective Catheter ablation in the setting of high atrial fibrillation burden. Patient tolerated the procedure well and will be discharged home today with follow-up with PCP and electrophysiology within 5 to 6 weeks. ?? Objective Vital Signs?? Temperature: 97.6 DegF (09/21/23 07:00:00) Temperature Route: Oral (09/21/23 07:00:00) Pulse Rate: 63 bpm (09/21/23 08:01:00) Heart Rate Monitored: 60 bpm (09/20/23 13:15:00) Respiratory Rate: 18 br/min (09/21/23 07:00:00) Systolic Blood Pressure: 125 mm Hg (09/21/23 08:01:00) Diastolic Blood Pressure:??50 mm Hg??Low (09/21/23 08:01:00) Blood pressure sites: Arm, left (09/21/23 07:00:00) Mean Arterial Pressure: 85 mm Hg (09/21/23 03:41:00) Pulse Pressure: 75 mm Hg (09/21/23 07:00:00) Oxygen Saturation: 95 % (09/21/23 07:00:00) Liters per Minute: 4 L/min (09/20/23 13:00:00) Mode of Delivery (Oxygen): Room air (09/21/23 07:00:00) Early Warning Score: 4 (09/21/23 08:02:26) ? . Physical Exam Constitutional: Alert, in no distress. Mental Status: Oriented to person, place and time. Head: Normocephalic. Eyes: Pupils are equal, round and reactive to light. Extraocular muscles intact. Ear, Nose and Throat: Oropharynx clear, mucous membranes moist. Ears and nose without masses, lesions or deformities. Trachea midline. Neck: Supple, Full range of motion. Respiratory: Clear to auscultation. No wheezing, rales or rhonchi. Cardiovascular: S1 S2 regular. No murmurs, rubs or gallops. Follow-Up Appointments Added Follow Up ?Time Frame ?Comments Mati FAIR, Gianni Doe?4 to 5 weeks?The office will call you tara appointment Kera FAIR, Demetrius Alvarado Results Discharge Labs BLOOD BANK Blood Type B Positive ()?? 09/20/2023 06:56 Antibody Screen Negative ()?? 09/20/2023 06:56 ?? COAG POC ACT-LR 264.0 seconds ()?? 09/20/2023 11:01 ? Procedure ?Anesthesia Record (Electronic) ? Image ?12 Lead ECG??09/20/2023 06:52 by Kamlesh Yanez MD ?Cardiac Device Reports??09/21/2023 00:00 by HIM , Report Specialist ? _37 minutes spent on discharge * Inna Macedo RN: PERFORM Event Display: Patient Education/Instruction Authored Date: [id number] Inpatient Adult Discharge Instructions. [address] [address] Name: BONITA HATCH : 1945?? Visit: 09/20/2023 05:57?? Current Date: 09/21/2023 09:28 ?? Account: [id number]?? Inpatient Adult Discharge Instructions We would like [...] and their families. Surveys are administered by [employer] ?? If further treatment with your primary care physician or another doctor is recommended, it is important for you to keep the appointment. Call your primary care physician or return to the Emergency Department immediately if your condition worsens, fails to improve, or new symptoms develop. If you need to find a doctor, you can call [facility] for a referral at [phone] or toll free at [phone]) or log in to [email or web address].. ?? [facility], in keeping with [facility] guidance, no longer requires face masks for staff, patientsor visitors in most situations. Similiar to time spent indoors at other locations, there is the chance that you were exposed to repiratory viruses during your time with us (such as flu or COVID-19). If you develop symptoms concerning for a viral respiratory infection, please seek testing (and treatment if indicated) from your medical provider or home test kit. ?? You can view and manage your care through the patient portal or by using a health care alyssa of your choosing. [employer] is a website that allows you to [...] office visit. You have been discharged from [facility], Patient Care Unit: M5??. If you have any questions regarding these instructions, including results of studies pending, afteryou leave, please call us and we will be happy to assist you 26/11. [facility] Your Care Team Attending Physician Gianni Thorne MD?? Consulting Providers Gianni Thorne MD?? Discharging Providers Andry Keating MD Tests Performed Below is a partial list of the tests performed during your hospitalization. You may have had other tests and procedures not included in this list. Please discuss all test results with your provider. POC Hemochron ACT-LR Type and Screen No tests performed during this visit.?? Primary Care Provider Demetrius Cote MD? Advance Directive Health Care Proxy on File No Discharge Vitals Temperature: 97.6 DegF Height: 155 cm Pulse Rate: 63 bpm Weight: 76 kg Respiratory Rate: 18 br/min Body Mass Index:??31.63 kg/m2??Critical Systolic Blood Pressure: 125 mm Hg Body surface area: 1.81 Diastolic Blood Pressure:??50 mm Hg??Low ?? Oxygen Saturation: 95 % ?? Studies Pending All studies ordered during this hospital stay have been completed unless listed below. Please discuss all pending results with your provider listed above in these instructions. ?? No incomplete studies found?? What to do next Instructions From Your Doctor ?? Orders? 09/21/23 9:09:00 EDT?? Scheduled Follow-Up Appointments Saturday 1:20 PM EDT ?? Where[facility] [address] [place] [address]- Status: Pending 2023 3:15 PM EDT ?? With: Fede Quezada Where: [facility] [address] [place] [address]- Status: Pending You Need to Schedule the Following Appointments Follow Up with??Gianni Thorne MD When:??Within 4 to 5 weeks Why: The office will call you for an appointment Follow Up with??Demetrius Cote MD Where: ?? Discharge Medications BONITA HATCH :1945 Visit Date:09/20/2023 Medications: Please continue your medications until treatment is completed or stopped by your provider. Medications not listed below should be discontinued. Discuss any questions related to medications with your provider. What How Much When Instructions Next Dose New Pantoprazole (pantoprazole 40 mg oral delayed releasetablet) 1 tab(s) Oral Daily at Bedtime Duration: 21 Days Pickup at [facility] 3 09/20 9PM Changed apixaban (Eliquis 5 mg oral tablet) 1 tab(s) Oral Twice a day 09/20 9PM Unchanged Alendronate (alendronate 70 mg oral tablet) 1 tab(s) Oral Every week As prescribed Unchanged amiODARONE (amiodarone 200 mg oral tablet) 1 tab(s) Oral Daily 09/21 9am Unchanged Aspirin (aspirin 81 mg oral delayed release tablet) 1 tab(s) Oral Daily 09/21 9am Unchanged Calcium And Vitamin D Combination (Calcium 600 +D) Oral 09/21 9am Unchanged Cholecalciferol (Vitamin D3 oral tablet) 1 tab(s) Oral Daily 09/21 9am Unchanged Cyclosporine Ophthalmic (Restasis 0.05% ophthalmic emulsion) 1 Drops Every 12 hours 09/20 9pm Unchanged Ferrous Sulfate (FeroSul 325 mg oral tablet) TAKE 1 TABLET BY MOUTH EVERY DAY ?? 09/21 9am Unchanged Fluorometholone Ophthalmic (fluorometholone 0.1% ophthalmic suspension) 1 Drops Both eyes 4 times a day 09/20 12pm Unchanged Furosemide 20 Milligram Oral 09/21 9am Unchanged Levothyroxine (levothyroxine 0.1 mg oral tablet) 1 tab(s) Oral Daily 09/21 7am Unchanged Metoprolol (metoprolol 25 mg oral tablet) 1 tab(s) Oral Twice a day 09/20 9pm Unchanged Simvastatin (simvastatin 40 mg oral tablet) 1 tab(s) Oral Daily at Bedtime Duration: 30 Days 09/20 9pm Unchanged Trazodone (traZODone 150 mg oral tablet) 1 tab(s) Oral Daily at Bedtime 09/20 9pm Unchanged Trazodone (traZODone 50 mg oral tablet) 0.5 tab(s) Oral Daily at Bedtime 09/20 9pm Pharmacy Information [facility] 3: [address] [place], [place] [id number] [phone] Prescription Given During Visit Pantoprazole (pantoprazole 40 mg oral delayed release tablet) - 1 tablet = 40 mg, By Mouth, Daily at bedtime, # 21 tablet, 0 Refills, [facility] [place] [id number]?? Laboratory Results Below is a partial list of the most recent Laboratory test results done prior to this discharge. You may have had other tests and procedures not included in this list. Please discuss all test resultswith your provider. POC Hemochron ACT-LR (09/20/2023) ???POC ACT-LR - 264.0 seconds Type and Screen (09/20/2023) ???Blood Type - B Positive???Antibody Screen - Negative Allergies (NKA means No Known Allergies) amoxicillin??(hives) penicillins??(hives) sulfa drugs Problems Active Problems??(11) Heart block AV second degree?? Hyperlipidemia?? Hypertension?? Hypothyroid?? NonHodgkins Lymphoma?? Obese class I?? Osteoarthritis?? PAF (paroxysmal atrial fibrillation)?? Psoriasis?? Sjorgens Disorder?? TIA (transient ischemic attack)?? Education Materials Below is the list of Educational Leaflet Providered with your Discharge Instructions. Valuables and Belongings I fully understand and agree that [facility] accepts no responsibility for all my personal [...] patient Date for Pt to Sign Valuables/Belongings: 09/20/23 07:42:00 ?? Valuables & Belongings ?? Clothes Electronic devices Jewelry Monetary Items Personal devices Miscellaneous Medications (Valuables) Valuables at Bedside Pants, Shirt, Shoes, Undergarments ? Glasses ? Valuables Sent Home ? Valuables Sent to Security ? Other Discharge Information ? Pulmonary Rehab Status?? Pulmonary Rehab Discharge Status?? Respiratory Rate: 18 br/min ? Common Emergency Awareness Tips IS [...] are strongly encouraged to quit. Please call [facility] at [phone] or [phone] [phone]) or log in to [email or web address] for referrals to smoking cessation programs. ?? 200 Suicide & Crisis Lifeline is available 26/11 if you or someone you know needs to find a reason to keep living. By calling 171 you'll be connected to a skilled, trained counselor at a crisis center in your area. INPATIENT DISCHARGE INSTRUCTIONS SIGNATURE BONITA LUGO Location:[facility] Registration Date and Time:09/20/2023 05:57 EDT Primary Care Physician: Kera FAIR, Demetrius Alvarado, Attending Physician: Mati FAIR, Gianni Doe, BONITA SHEETS, have received the above patient education materials/instructions and have verbalized understanding. If ambulance or transport services are being used I further acknowledge being given a choice of service. ?? If you need to contact me, please call me at this number: . 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 [id number] Pantoprazole Delayed Release Oral Tablet Brands: Protonix Uses This medicine is used for the following purposes: ??? indigestion ??? inflammation of stomach ??? inflammation of the esophagus ??? stomach acid ??? stomach acid reflux ??? ulcers in stomach or intestines ??? ulcers in stomach or intestines ?? Instructions Swallow the medicine without crushing or chewing it. This medicine may be taken with or without food. Store at room temperature away from heat, light, and moisture. Do not keep in the bathroom. This medicine can reduce the absorption of other medicines. Talk to your doctor or pharmacist aboutthe best times to use this product. If you forget to take a dose on time, take it as soon as you remember. If it is almost time for thenext dose, do not take the missed dose. Return to your normal schedule. Do not take 2 doses at one time. Drug interactions can change how medicines work or increase risk for side effects. Tell your healthcare providers about all medicines taken. Include prescription and nvmk-fed-uwxbyib medicines, vitamins, and herbal medicines. Speak with your doctor or pharmacist before starting or stopping any medicine. Tell your doctor if symptoms do not get better or if they get worse. This medicine may affect the strength of your bones. If you have or are at increased risk for osteoporosis (weakening of the bones), your doctor may recommend foods with calcium and vitamin D. ?? Cautions Tell your doctor and pharmacist if you ever had an allergic reaction to a medicine. Do not use the medication any more than instructed. Please tell your doctor if you have moderate to severe diarrhea while on this medicine. Do not treat the diarrhea with rznw-mbo-msinsfq diarrhea medicine. This medicine passes into breast milk. Ask your doctor before . During , this medicine should be used only when clearly needed. Talk to your doctor about the risks and benefits. Do not share this medicine with anyone who has not been prescribed this medicine. Some patients have serious side effects from this medicine. Ask your pharmacist to show you the information from the Food and Drug Administration (FDA) and discuss it with you. ?? Side Effects The following is a list of some common side effects from this medicine. Please speak with your doctor about what you should do if you experience these or other side effects. ??? diarrhea ??? headaches Call your doctor or get medical help right away if you notice any of these more serious side effects: ??? severe or persistent abdominal pain ??? severe, watery or bloody diarrhea ??? fever ??? numbness or tingling in hands and feet ??? fast or irregular heart beats ??? pain in the joints ??? signs of kidney damage (such as change in urine color or bubbly urine) ??? muscle aches, spasms or abnormalmovements ??? butterfly-shaped rash on nose and cheeks ??? seizures ??? blood in stool ??? unusual or unexplained tiredness or weakness A few people may have an allergic reaction to this medicine. Symptoms can include difficulty breathing, skin rash, itching, swelling, or severe dizziness. If you notice any of these symptoms, seek medical help quickly. ?? Extra Please speak with your doctor, nurse, or pharmacist if you have any questions about this medicine. ?? [email or web address] IMPORTANT NOTE: This document tells you briefly how to take your medicine, but it does not tell youall there is to know about it. Your doctor or pharmacist may give you other documents about your medicine. Please talk to them if you have any questions. Always follow their advice. There is a more complete description of this medicine available in [employer]. Scan this code on your smartphone or tablet or use the web address below. You can also ask your pharmacist for a printout. If you have any questions, please ask your pharmacist. The display and use of this drug information is subject to Terms of Use. Copyright(c) 2023 [employer]. ?? [employer]. All rights reserved. This information is not intended as a substitute for professional medical care. Always follow your healthcare professional's instructions. ?? * Inna Macedo RN: PERFORM Event Display: Patient Education Leaflets Authored Date: [id number] Discharge Instructions for Catheter Ablation ?? [id number] Discharge Instructions for Catheter Ablation You have had a procedure called catheter ablation. It was??used to treat an abnormal heartbeat (arrhythmia). This procedure destroyed (ablated) the cells in your heart that were causing your heart rhythm problem. During the procedure, the healthcare provider put a thin,??flexible??wire (catheter)??into a blood vessel in your groin. You may have also had a catheter placed through a vein in your neck. The provider then threaded the catheter to your heart and destroyed the cells causing the problem. Home care Here are recommendations for care at home:? Make arrangements for someone to drive you home after the procedure. This is you will be given medicine to relax you (sedation). Your healthcare provider may tell you not to??drive for 24 to 48 hours after the procedure. ??? Expect to be able to go back to your normal daily activities in the next 1 to 2 days. 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 ??? Don't do any heavy physical activity or excessive bending atthe waist for several days after the procedure. This will allow your body to heal. ??? Don't lift heavy objects for a period of time after your ablation. Talk with your healthcare provider about any specific limits you need to follow. Ask your provider when it is OK to lift heavy objects and returnto physical activity. ??? Ask your healthcare provider when you can??return to work. ??? Check the area where the catheter was inserted for signs of infection every day for a week. Keep the site dry for 1 to 2 days or as instructed. Signs of infection include redness, swelling, drainage, or warmth at the incision site.??Take your temperature if you feel you may have a fever. Let your provider know if you develop any symptoms of infection or see any discharge from your site. ??? Take your medicines exactly as directed. Don???t skip doses. You may need to make some changes in your medicines because of the ablation procedure. Be sure to go over your medicine instructions with your healthcare pr ovider before you are discharged. ??? Learn to take your own pulse. Keep a record of your results. Ask your healthcare provider which readings mean that you need medical attention. ?? Follow-up care Make a follow-up appointment as directed by your healthcare provider. Your provider will check how the catheter site is healing. In many cases, one ablation is enough to treat an arrhythmia. But sometimes the problem comes back or another problem is found. If this happens, you may need a second procedure. ?? When to call your healthcare provider Call your healthcare provider right away if you have any of the following: ??? Redness, pain, swelling, bleeding, or drainage from the area where the catheter was put in ??? Temperature of 100.4??F (38.0??C) or higher, or as directed by your healthcare provider? Suddencoldness, pain, or numbness in the leg or arm where the catheter was put in ??? Nausea or vomiting ??? Difficulty swallowing, excessive pain when swallowing, or vomiting blood ??? Heart rate that stays high Note: Ask your healthcare provider what to expect about your heartbeat. Sometimes the irregularity goes away right after the procedure. Other times it may take longer to go away. ?? Call 911 Call 911 right away if you notice: ??? Bleeding from the puncture site does not slow down when you press on it firmly ??? Chest pain, shortness of breath, or dizziness ??? Sudden numbness or weakness, especially on one side of the body, or difficulty speaking ??? Sudden loss of consciousness/responsiveness ?? Last Reviewed Date: 2021 ?? [id number] [employer]. All rights reserved. This information is not intended as a substitute for professional medical care. Always follow your healthcare professional's instructions. ?? * Event Display: Hemodynamic Procedure Report Authored Date: History and physical note * Event Display: History and Physical Hospital Authored Date: EKG study * Event Display: ECG 12-Lead Authored Date: Please click on pdf link to open report * Event Display: ECG 12-Lead Authored Date: Ventricular Rate: 67 BPM Atrial Rate: 201 BPM QRS Duration: 146 ms Q-T Interval: 486 ms QTC Calculation(Bazett): 513 ms R Elwell: -64 degrees T Elwell: 90 degrees Atrial fibrillation flutter Ventricular pacing Abnormal ECG When compared with ECG of 12-SEP-2023 15:27, No significant change Confirmed by Kamlesh Yanez ([id number]) on 09/20/2023 7:46:24 AM [place]: Kamlesh Yanez Cardiology * Event Display: Cardiac Device Reports Authored Date: * Event Display: Cardiac Rhythm Strips Authored Date: Hospital Progress note * Karo Farmer RN: PERFORM, SIGN, VERIFY, SIGN, MODIFY Event Display: Progress Note Hospital Authored Date: Patient: BONITA HATCH Age: 78 years Sex: Female : 1945 Associated Diagnoses: None Author: Karo Farmer RN Findings Nursing Data * Karo Farmer RN: PERFORM Event Display: Progress Note Hospital Authored Date: Pt is A&Ox4, independent, calm and cooperative. VSS, pt only has slight pain in left rib area but denies all other complaints. Pt is eager to go home. Dressing remain intact without drainage fromincision bilateral groin site. * Domitila Streeter RN: PERFORM, SIGN, VERIFY Event Display: Progress Note Hospital Authored Date: Patient: BONITA HATCH Age: 78 years Sex: Female : 1945 Associated Diagnoses: None Author: Domitila Streeter RN Findings Problem Related to Alteration in Cardiac Function (new) : Alteration in Cardiac Function/new 09/20/2023 20:00 EDT Alteration in Cardiac Status Related to Cardiac Procedure Goals & Outcomes, Cardiac Status Pt will resume/maintain adequate cardiac output, Pt will resume/maintain adequate hemodynamic status, Pt will resume/maintain adequate respiratory function, Pt will maintain adequate nutrition status, Pt/caregiver will state understanding of diagnosis, Pt/caregiv er will state understanding of procedure, Pt will state pain at procedure site to be tolerable Cardiac Interventions Implemented Assess/monitor cardiac status, Assess/monitor neuro status, Assess/monitor respiratory status, Monitor anticoagulation values, Prep pt for treatments & procedures, Teach/encourage deep breath & cough exercises, Team conversation regarding appropriate level of care, Apply pressure at puncture site if hematoma develops, Assess baseline peripheral pulses, Assess for post procedural discomfort, Assess for post procedural hematoma at site, Assess procedure site for distal pulses, Implement post procedure orders, Monitor for Vagal reaction, Notify Provider if groin becomes unstable, Collaborate w/MD to implement appropriate guideline BH Goals/Interventions, Cardiac Yes Cardiac, Problem Start 09/20/2023 11:00 Reviewed Plan with, Cardiac Status Patient Patient Progression, Cardiac Status Patient progressing according to plan . Nursing Data Activity Data : Activity Data 09/20/2023 22:07 EDT Activity Status ADL Bathroom privileges, Up with assistance Activity Assistance Standby assist Ambulatory devices needed None . Cardiac Data. : Cardiac Data. 09/20/2023 20:24 EDT Cardiovascular Symptoms Edema present Nail Bed Color, Fingers Elwin Nail Bed Color, Toes Elwin Skin Temperature Upper Extremities Warm Skin Temperature Lower Extremities Warm Heart Rhythm Regular Pacemaker Yes Cardiac Rhythm Paced Pacemaker mode v-paced Capillary Refill < 3 seconds Radial Pulse, Left Normal Radial Pulse, Right Normal Dorsalis Pedis Pulse, Left Normal Dorsalis Pedis Pulse, Right Normal Ankle, left 1+ trace Ankle, right 1+ trace Pedal, left 1+ trace Pedal, right 1+ trace satellite project site monitor Yes AV fistula No Cardiovascular WNL except . Vital Signs : VITAL SIGNS SECTION 09/20/2023 20:40 EDT Temperature 97.9 DegF Temperature Route Oral Pulse Rate 61 bpm Respiratory Rate 18 br/min Systolic Blood Pressure 117 mm Hg Diastolic Blood Pressure 52 mm Hg L Blood pressure sites Arm, left Mean Arterial Pressure 74 mm Hg Pulse Pressure 65 mm Hg Oxygen Saturation 93 % L Mode of Delivery (Oxygen) Room air . Evaluation PT is A&OX4, V-PACED on tele ,lungs are clear on RA,S/P afib ablation. denies chest pain,palpitation,chest tghtness.Bilateral groin site has dry sterile dressinsg applied, no bleeding or hematomanoted. good pulses,vss. trace edema note on BLE.Pls see [facility] for full pt assessment. call crowell is within pt's reach and pt is advised to use call crowell.. * Jasmin Page RN: PERFORM, SIGN, VERIFY Event Display: Progress Note Hospital Authored Date: [id number] Patient: BONITA HATCH Age: 78 years Sex: Female : 1945 Associated Diagnoses: None Author: Jasmin Page RN Findings Problem Related to Alteration in Cardiac Function (new) : Alteration in Cardiac Function/new 09/20/2023 16:00 EDT Alteration in Cardiac Status Related to Cardiac Procedure Goals & Outcomes, Cardiac Status Pt will resume/maintain adequate cardiac output, Pt will resume/maintain adequate hemodynamic status, Pt will resume/maintain adequate respiratory function, Pt will maintain adequate nutrition status, Pt/caregiver will state understanding of diagnosis Cardiac Interventions Implemented Assess/monitor cardiac status, Assess/monitor neuro status, Assess/monitor respiratory status, Teach/encourage deep breath & cough exercises, Teach/encourage useof incentive spirometer, Team conversation regarding appropriate level of care BH Goals/Interventions, Cardiac Yes Cardiac, Problem Start 09/20/2023 11:00 Reviewed Plan with, Cardiac Status Patient Patient Progression, Cardiac Status Plan Initiation . Evaluation Pt. Arrived from [facility] at 11:30am following cardiac ablation. Pt Alert and oriented x4. Paced on themonitor with HR in the 70s. pt has no complaints of chest pain or palpitations. Pt on room air withno complaints of shortness of breath. Pt. endorses 6/10 pain in bilateral groins, PRN tylenol administered and pain resolved to 2/10. Left and Right groin Sites clean, dry, and intact with dry, sterile dressing in place. Skin intact. Edema noted in bilateral extremities, good pulses. See biophsicalfor full assessment. Pt resting in bed with family at bedside and call light withiin reach. . Patient Care team information Care Team Personnel Name: Demetrius Cote MD Position: [facility] Physician - Oncology Member Role: PCP Address: Address: [address] [place] [address] [address] Demetrius Cote III, [place], [place] [address] Name: Lo Wheeler Position: [facility] RN Member Role: Primary Care Nurse Care Team Related Persons Name: WENDY HATCH Address: [address] [place] [address] Name: YAQUELIN HATCH Address: [address] [place] [address]
--- OUTSIDE RECORDS SUMMARY | 2023-11-14 09:20 | XMS_ITS | Continuity of Care Document ---
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 Name Role Phone Demetrius Cote MD Primary Care Physician [phone] Encounter [facility] Date(s): 05/22/22 - 06/21/22 [facility] [address] [place] [id number]- Allergies, Adverse Reactions, Alerts Substance Reaction Severity [...] 3 Refills, Maintenance, 04/24/21 9:50:00 EST, Tablet, [facility] #[id number], 158, cm, 11/14/20 9:57:00 EDT, Height, 83, kg, 04/22/20 11:36:00 EST, Dry Weight Start Date: 04/24/21 Stop Date: 04/19/22 Status: Ordered Eliquis 5 mg oral tablet 1 tablet, By Mouth, 2 times a day, # 180 tablet, 3 Refills, Maintenance, 04/10/22 8:09:00 EST, [id number], 158, cm, 01/24/22 7:58:00 EDT, Height, 79.5, [...] Team Personnel Name: Demetrius Cote MD Position: [facility] Oncology MD Member Role: PCP Address: Address: [address] [place] [address] [address] [place] [address] Name: Lizabeth Manzano [place] Position: [facility] Ambulatory Clinician Member Role: Primary Care Nurse Care Team Related Persons Name: WENDY HATCH Address: [address] [place] [address] Name: MAMIE YAQUELIN Address: home [address] [place] [address]
--- OUTSIDE RECORDS SUMMARY | 2023-11-14 09:21 | XMS_ITS | Patient Health Record ---
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 Name Role Phone Demetrius Cote Primary Care Provider ALLERGIES Allergen (clinical drug ingredient) Drug/Non Drug Allergy documented on EMR Reaction Allergy Type Onset Date Status Penicillin Unknown Drug Allergy Active sulfamethoxazole / trimethoprim Sulfamethoxazole-Tri methoprim hives Drug Allergy Active amoxicillin Amoxicillin hives Drug Allergy Act anmol RESULTS Component Value Reference Range Notes URINE DIP STICK Reviewed date:11/19/2022 09:54:46 AM Interpretation: Performing Lab: Notes/Report: SG 1.020 1.005 - 1.025 pH 5.0 5.0 - 9.0 YASSINE 70 Negative - NIT Negative Negative - PRO 15 Negative - Trace GLU Negative Negative - KET 5 Negative - UBG 0.2 0.1 - 1.8 JULIEN Negative 0.2 - 1.3 BLD Positive Negative - Menstrating No Complete Blood Count Auto Di ff Reviewed date:01/31/2023 05:14:22 AM Interpretation: Performing Lab:[facility], [address] [place] [address] Notes/Report: White Blood Count 7.7 4.8-10.8 X10*3/uL Red Blood Count 3.88 4.20-5.50 X10*6/uL Hemoglobin 11.9 12.0-16.0 g/dl Hematocrit 38.2 37.0-47.0 % Mean Corpuscular Volume 98.5 80.0-98.0 fL Mean Corpuscular Hemoglobin 30.7 27.0-33.0 pg Mean Corpuscular HGB Conc 31.2 31.0-35.0 g/dl Red Cell Distribution Width 14.3 11.0-16.0 % Platelet Count 172 160-400 X10*3/uL Mean Platelet Volume 12.9 9.4-12.3 fL Neutrophils Percent Auto 61.6 45-73 % Imm Gran Pct Auto 0.3 0.0-0.4 % Lymphocytes Percent Auto 15.7 20-40 % Monocytes Percent Auto 13.6 2-11 % Eosinophils Percent Auto 8.0 0-4 % Basophils Percent Auto 0.8 0-2 % NRBC Pct Auto 0.0 0.0-0.2 /100WBC Neutrophils Absolute Auto 4.7 2.0-8.3 x10*3/u L Imm Gran Abs Auto 0.02 0.00-0.03 X10*3/uL Lymphocytes Absolute Auto 1.2 1.2-4.9 X10*3/u L Monocytes Absolute Auto 1.0 0.1-1.2 X10*3/uL Eosinophils Absolute Auto 0.6 0.0-0.4 X10*3/u L Basophils Absolute Auto 0.1 0.0-0.2 X10*3/uL NRBC Abs Auto 0.000 0.0-0.012 X10*3/uL Erythrocyte Sedimentation Ra te Reviewed date:01/31/2023 05:14:22 AM Interpretation: Performing Lab:[facility], [address] [place] [phone] Notes/Report: Erythrocyte Sedimentation Rate 16 0-20 MM/HR Patients with polycythemia and many hemoglobin abnormalities may have depressed sed rates whereas patients with anemia may have elevated sed rates. Comprehensive Met. Panel Reviewed date:01/31/2023 05:14:22 AM Interpretation: Performing Lab:[address] [phone] Notes/Report: Sodium 138 135-145 mmol/L Potassium 4.7 3.3-5.1 mmol/L Chloride 106 96-108 mmol/L Carbon Dioxide 27 22-29 mmol/L Anion Gap 10 12-20 Blood Urea Nitrogen 22 9-16 mg/dL Creatinine 1.13 0.5-1.4 mg/dL Estimated Glomerular Filt Rate 47 NOTE: For -[place] Island[place] individuals, multiply the result by 1.210. Chronic Kidney Disease: Estimated GFR < 60 mL/min/1.73m2 Severe Kidney Disease: Estimated GFR < 15 mL/min/1.73m2 Glucose Random 91 60-115 mg/dL Calcium 9.5 8.4-10.2 mg/dL Bilirubin Total 0.5 0.0-1.0 mg/dL Aspartate Amino Transferase 44 5-31 U/L Alanine Aminotransferase 67 0-31 U/L Total Protein 6.8 6.5-8.0 g/dL Albumin Level 3.6 3.5-5.0 g/dL Alkaline Phosphatase 88 39-117 U/L Lactate Dehydrogenase Reviewed date:01/31/2023 05:14:22 AM Interpretation: Performing Lab:[facility], [address] [place] [phone] Notes/Report: Lactate Dehydrogenase 244 122-220 U/L Lipid Panel Reviewed date:01/31/2023 05:14:22 AM Interpretation: Performing Lab:[facility], [address] [place] [phone] Notes/Report: Triglycerides 65 <150 mg/dL Desirable Triglyceride: less than 150 mg/dL Borderline High Triglyceride 150-199 mg/dL High Triglyceride: 200-499 mg/dL Very High Triglyceride: greater than or equal to 5OO mg/dL Cholesterol 116 <200 mg/dL Desirable Cholesterol: less than 200 mg/dL Borderline High Cholesterol: 200-239 mg/dL High Cholesterol: greater than 239 mg/dL LDL Cholesterol Calculated 52 <100 mg/dL Desirable LDL: less than 100 mg/dL Near Optimal/Above Optimal LDL: 110-129 mg/dL Borderline High LDL: 130-159 mg/dL High LDL: 160-189 mg/dL Very High LDL: greater than or equal to 190 mg/dL HDL Cholesterol 51 >40 mg/dL Desirable HDL: greater than 40 mg/dL Note: This HDL assay may give artificially low results in patients with liver disease. Complete Blood Count Auto Di ff Reviewed date:06/10/2023 05:09:52 AM Interpretation: Performing Lab:[facility], [address] [place] [phone] Notes/Report: White Blood Count 6.9 4.8-10.8 X10*3/uL Red Blood Count 3.84 4.20-5.50 X10*6/uL Hemoglobin 12.1 12.0-16.0 g/dl Hematocrit 37.5 37.0-47.0 % Mean Corpuscular Volume 97.7 80.0-98.0 fL Mean Corpuscular Hemoglobin 31.5 27.0-33.0 pg Mean Corpuscular HGB Conc 32.3 31.0-35.0 g/dl Red Cell Distribution Width 13.9 11.0-16.0 % Platelet Count 195 160-400 X10*3/uL Mean Platelet Volume 12.4 9.4-12.3 fL Neutrophils Percent Auto 58.2 45-73 % Imm Gran Pct Auto 0.4 0.0-0.4 % Lymphocytes Percent Auto 18.2 20-40 % Monocytes Percent Auto 14.4 2-11 % Eosinophils Percent Auto 7.9 0-4 % Basophils Percent Auto 0.9 0-2 % NRBC Pct Auto 0.3 0.0-0.2 /100WBC Neutrophils Absolute Auto 4.0 2.0-8.3 x10*3/u L Imm Gran Abs Auto 0.03 0.00-0.03 X10*3/uL Lymphocytes Absolute Auto 1.3 1.2-4.9 X10*3/u L Monocytes Absolute Auto 1.0 0.1-1.2 X10*3/uL Eosinophils Absolute Auto 0.5 0.0-0.4 X10*3/u L Basophils Absolute Auto 0.1 0.0-0.2 X10*3/uL NRBC Abs Auto 0.020 0.0-0.012 X10*3/uL Erythrocyte Sedimentation Ra te Reviewed date:06/10/2023 05:09:52 AM Interpretation: Performing Lab:[facility], [address] [place] [phone] Notes/Report: Erythrocyte Sedimentation Rate 18 0-20 MM/HR Patients with polycythemia and many hemoglobin abnormalities may have depressed sed rates whereas patients with anemia may have elevated sed rates. Comprehensive [place]. Panel Fa st Reviewed date:06/10/2023 05:09:52 AM Interpretation: Performing Lab:[facility], [address] [place] [phone] Notes/Report: Sodium 140 135-145 mmol/L Potassium 4.7 3.3-5.1 mmol/L Chloride 107 96-108 mmol/L Carbon Dioxide 29 22-29 mmol/L Anion Gap 9 12-20 Blood Urea Nitrogen 16 9-16 mg/dL Creatinine 1.16 0.5-1.4 mg/dL Estimated Glomerular Filt Rate 45 NOTE: For -[place] Island[place] individuals, multiply the result by 1.210. Chronic Kidney Disease: Estimated GFR < 60 mL/min/1.73m2 Severe Kidney Disease: Estimated GFR < 15 mL/min/1.73m2 Glucose Fasting 96 60-99 mg/dL Calcium 9.5 8.4-10.2 mg/dL Bilirubin Total 0.4 0.0-1.0 mg/dL Aspartate Amino Transferase 28 5-31 U/L Alanine Aminotransferase 23 0-31 U/L Total Protein 7.2 6.5-8.0 g/dL Albumin Level 3.6 3.5-5.0 g/dL Alkaline Phosphatase 70 39-117 U/L Lactate Dehydrogenase Reviewed date:06/10/2023 05:09:52 AM Interpretation: Performing Lab:[address] [phone] Notes/Report: Lactate Dehydrogenase 291 122-220 U/L Lipid Panel Reviewed date:06/10/2023 05:09:52 AM Interpretation: Performing Lab:[address] [phone] Notes/Report: Triglycerides 53 <150 mg/dL Desirable Triglyceride: less than 150 mg/dL Borderline High Triglyceride 150-199 mg/dL High Triglyceride: 200-499 mg/dL Very High Triglyceride: greater than or equal to 5OO mg/dL Cholesterol 120 <200 mg/dL Desirable Cholesterol: less than 200 mg/dL Borderline High Cholesterol: 200-239 mg/dL High Cholesterol: greater than 239 mg/dL LDL Cholesterol Calculated 50 <100 mg/dL Desirable LDL: less than 100 mg/dL Near Optimal/Above Optimal LDL: 110-129 mg/dL Borderline High LDL: 130-159 mg/dL High LDL: 160-189 mg/dL Very High LDL: greater than or equal to 190 mg/dL HDL Cholesterol 60 >40 mg/dL Desirable HDL: greater than 40 mg/dL Note: This HDL assay may give artificially low results in patients with liver disease. Free T4 (Free Thyroxine) Reviewed date:06/10/2023 05:09:52 AM Interpretation: Performing Lab:[facility], [address] [place] [phone] Notes/Report: Free T4 (Free Thyroxine) 0.94 0.71-1.85 ng/dL Carbohydrate Antigen 19-9 Reviewed date:06/10/2023 05:09:52 AM Interpretation: Performing Lab:[facility], [address] [place] [phone] Notes/Report: Carbohydrate Antigen 19-9 42 <34 U/mL This test was performed using the Siemens chemiluminescent method. Values obtained from different assay methods cannot be used interchangeably. CA 19-9 levels, regardless of value, should not be interpreted as absolute evidence of the presence or absence of disease. THIS TEST WAS PERFORMED AT: [facility] [address] [place] [phone] ANNAMARIA EVANS MD Thyroid Stimulating Hormone Reviewed date:06/10/2023 05:09:52 AM Interpretation: Performing Lab:[facility], [address] [place] [phone] Notes/Report: Thyroid Stimulating Hormone 3.22 0.32-4.0 uIU/ mL Note: A sustained TSH level above 2.5 uIU/mL may warrant further investigation. TSH 3rd Generation ([facility]) Complete Blood Count Auto Di ff Reviewed date:07/23/2023 03:20:56 PM Interpretation: Performing Lab:[address] [phone] Notes/Report: White Blood Count 11.9 4.8-10.8 X10*3/uL Red Blood Count 3.71 4.20-5.50 X10*6/uL Hemoglobin 11.5 12.0-16.0 g/dl Hematocrit 35.5 37.0-47.0 % Mean Corpuscular Volume 95.7 80.0-98.0 fL Mean Corpuscular Hemoglobin 31.0 27.0-33.0 pg Mean Corpuscular HGB Conc 32.4 31.0-35.0 g/dl Red Cell Distribution Width 14.3 11.0-16.0 % Platelet Count 221 160-400 X10*3/uL Mean Platelet Volume 10.3 9.4-12.3 fL Neutrophils Percent Auto 82.0 45-73 % Imm Gran Pct Auto 0.4 0.0-0.4 % Lymphocytes Percent Auto 5.5 20-40 % Monocytes Percent Auto 11.3 2-11 % Eosinophils Percent Auto 0.4 0-4 % Basophils Percent Auto 0.4 0-2 % NRBC Pct Auto 0.3 0.0-0.2 /100WBC Neutrophils Absolute Auto 9.7 2.0-8.3 x10*3/u L Imm Gran Abs Auto 0.05 0.00-0.03 X10*3/uL Lymphocytes Absolute Auto 0.7 1.2-4.9 X10*3/u L Monocytes Absolute Auto 1.4 0.1-1.2 X10*3/uL Eosinophils Absolute Auto 0.1 0.0-0.4 X10*3/u L Basophils Absolute Auto 0.1 0.0-0.2 X10*3/uL NRBC Abs Auto 0.030 0.0-0.012 X10*3/uL Prothrombin Time INR Reviewed date:07/23/2023 03:20:56 PM Interpretation: Performing Lab:[address] [phone] Notes/Report: Prothrombin Time 24.2 11.1-13.3 SEC INTERNATIONAL NORM RATIO 2.0 0.9-1.1 INTERNATIONAL NORMALIZED RATIO (INR) REFERENCE RANGES Reference Range For patients not on anticoagulant therapy: 0.9 - 1.1 INR ranges for oral anticoagulant therapy: For prevention and treatment of venous thrombosis and pulmonary embolism: 2.0 - 3.0 For acute myocardial infarction with aspirin therapy: 2.0 - 3.0 For acute myocardial infarction without aspirin therapy: 3.0 - 4.0 For patients with mechanical prosthetic heart valves: 2.5 - 3.5 Comprehensive Met. Panel Reviewed date:07/23/2023 03:20:56 PM Interpretation: Performing Lab:[address] [phone] Notes/Report: Sodium 136 135-145 mmol/L Potassium 4.1 3.3-5.1 mmol/L Chloride 105 96-108 mmol/L Carbon Dioxide 18 22-29 mmol/L Anion Gap 17 12-20 Blood Urea Nitrogen 15 9-16 mg/dL Creatinine 1.00 0.5-1.4 mg/dL Creatinine [facility] 55.8 Provided height and weight: 165.1 cm, 102.058 kg. eGFR (calculated from the MDRD study equation) and eCrCl (calculated from the Cockcroft-Gault equation) are based on different parameters and may not yield comparable results. If eCrCl result is absurd, please check patient's height/weight. Estimated Glomerular Filt Rate 54 NOTE: For -[place] Islander individuals, multiply the result by 1.210. Chronic Kidney Disease: Estimated GFR < 60 mL/min/1.73m2 Severe Kidney Disease: Estimated GFR < 15 mL/min/1.73m2 Glucose Random 124 60-115 mg/dL Calcium 9.0 8.4-10.2 mg/dL Bilirubin Total 1.1 0.0-1.0 mg/dL Aspartate Amino Transferase 25 5-31 U/L Alanine Aminotransferase 28 0-31 U/L Total Protein 7.1 6.5-8.0 g/dL Albumin Level 3.6 3.5-5.0 g/dL Alkaline Phosphatase 71 39-117 U/L Magnesium Reviewed date:07/23/2023 03:20:56 PM Interpretation: Performing Lab:[address] [phone] Notes/Report: Magnesium 2.0 1.6-2.6 mg/dL Troponin-I High Sensitivity Reviewed date:07/23/2023 03:20:56 PM Interpretation: Performing Lab:[address] [phone] Notes/Report: Troponin-I High Sensitivity 4.1 <3.5-17.0 ng/ L [facility] high sensitivity Troponin-I results should be used in conjunction with other diagnostic information such as ECG, clinical observations and information, and patient symptoms to aid in the diagnosis of [place]. B Type Natriuretic Peptide Reviewed date:07/23/2023 03:20:56 PM Interpretation: Performing Lab:[address] [phone] Notes/Report: B Type Natriuretic Peptide 483 <100 pg/mL For those patients who are being treated with Natrecor (nesiritide, recombinant BNP), BNP testing should be performed at least two hours post treatment in order to ensure that only endogenous levels of BNP are detected. XR chest 2V Reviewed date:07/23/2023 03:20:56 PM Interpretation: Performing Lab: Notes/Report: [address] [address] XRay Report Signed Patient: Kayla Cheung MR#: [id number] : 1945 Acct:[id number] Age/Sex: 78 / F ADM Date: 07/23/23 Loc: HO.ED Attending Dr: Ordering Physician: Generic ED Physician Date of Service: 07/23/23 Procedure(s): XR chest 2V Accession Number(s): [id number] cc: Demetrius Cote MD; Generic ED Physician EXAMINATION: XR CHEST CLINICAL INFORMATION: Dyspnea COMPARISON: None available. TECHNIQUE: 2 views of the chest were obtained. FINDINGS: The lungs are expanded with mild blunting of left CP angle from pleural effusion or pleural thickening with underlying atelectasis. Rest of the lungs are otherwise clear. Heart size is normal. Pulmonary vascularity is mildly prominent but no congestion suspected. There are dual pacer electrodes in right atrium and right ventricle. 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 No gross bony abnormality. XR/XR chest 2V IMPRESSION: Suspect small left pleural effusion and/or thickening with underlying atelectasis. Prominent pulmonary vascularity but no congestion suspected. Dictated By: Idris Perez MD Signed By: <Electronically signed by Idris Perez MD in [place]> 07/23/23 1203 DD/ 1119 TD/TT: Explosive Operator Bomb: [id number] Troponin-I High Sensitivity Reviewed date:07/27/2023 01:18:28 PM Interpretation: Performing Lab:[facility], [address] [place] [phone] Notes/Report: Troponin-I High Sensitivity 4.7 <3.5-17.0 ng/ L [facility] high sensitivity Troponin-I results should be used in conjunction with other diagnostic information such as ECG, clinical observations and information, and patient symptoms to aid in the diagnosis of [place]. Complete Blood Count Auto Di ff Reviewed date:07/27/2023 01:18:28 PM Interpretation: Performing Lab:[facility], [address] [place] [phone] Notes/Report: White Blood Count 8.9 4.8-10.8 X10*3/uL Red Blood Count 3.61 4.20-5.50 X10*6/uL Hemoglobin 11.2 12.0-16.0 g/dl Hematocrit 33.9 37.0-47.0 % Mean Corpuscular Volume 93.9 80.0-98.0 fL Mean Corpuscular Hemoglobin 31.0 27.0-33.0 pg Mean Corpuscular HGB Conc 33.0 31.0-35.0 g/dl Red Cell Distribution Width 14.2 11.0-16.0 % Platelet Count 227 160-400 X10*3/uL Mean Platelet Volume 11.2 9.4-12.3 fL Neutrophils Percent Auto 70.1 45-73 % Imm Gran Pct Auto 0.3 0.0-0.4 % Lymphocytes Percent Auto 11.4 20-40 % Monocytes Percent Auto 15.2 2-11 % Eosinophils Percent Auto 2.4 0-4 % Basophils Percent Auto 0.6 0-2 % NRBC Pct Auto 0.2 0.0-0.2 /100WBC Neutrophils Absolute Auto 6.2 2.0-8.3 x10*3/u L Imm Gran Abs Auto 0.03 0.00-0.03 X10*3/uL Lymphocytes Absolute Auto 1.0 1.2-4.9 X10*3/u L Monocytes Absolute Auto 1.4 0.1-1.2 X10*3/uL Eosinophils Absolute Auto 0.2 0.0-0.4 X10*3/u L Basophils Absolute Auto 0.1 0.0-0.2 X10*3/uL NRBC Abs Auto 0.020 0.0-0.012 X10*3/uL Basic Metabolic Panel Reviewed date:07/27/2023 01:18:28 PM Interpretation: Performing Lab:[facility], [address] [place] [phone] Notes/Report: Sodium 138 135-145 mmol/L Potassium 3.8 3.3-5.1 mmol/L Chloride 103 96-108 mmol/L Carbon Dioxide 25 22-29 mmol/L Anion Gap 14 12-20 Blood Urea Nitrogen 12 9-16 mg/dL Creatinine 0.87 0.5-1.4 mg/dL Creatinine Clr Calc Pharmacy 64.1 Provided height and weight: 165.1 cm, 102.058 kg. eGFR (calculated from the MDRD study equation) and eCrCl (calculated from the Cockcroft-Gault equation) are based on different parameters and may not yield comparable results. If eCrCl result is absurd, please check patient's height/weight. Estimated Glomerular Filt Rate > 60 NOTE: For -[place] Islander individuals, multiply the result by 1.210. Chronic Kidney Disease: Estimated GFR < 60 mL/min/1.73m2 Severe Kidney Disease: Estimated GFR < 15 mL/min/1.73m2 Glucose Random 98 60-115 mg/dL Calcium 9.2 8.4-10.2 mg/dL Basic Metabolic Panel Reviewed date:07/27/2023 01:18:28 PM Interpretation: Performing Lab:[facility], [address] [place] [phone] Notes/Report: Missed x3. MORRISD 0857 Missed [facility] Sodium 137 135-145 mmol/L Potassium 4.2 3.3-5.1 mmol/L Slight Hemoly sis Chloride 101 96-108 mmol/L Carbon Dioxide 23 22-29 mmol/L Anion Gap 17 12-20 Blood Urea Nitrogen 17 9-16 mg/dL Creatinine 1.14 0.5-1.4 mg/dL Creatinine Clr Calc Pharmacy 43.1 Provided height and weight: 165.1 cm, 79.9 kg. eGFR (calculated from the MDRD study equation) and eCrCl (calculated from the Cockcroft-Gault equation) are based on different parameters and may not yield comparable results. If eCrCl result is absurd, please check patient's height/weight. Estimated Glomerular Filt Rate 46 NOTE: For -[place] individuals, multiply the result by 1.210. Chronic Kidney Disease: Estimated GFR < 60 mL/min/1.73m2 Severe Kidney Disease: Estimated GFR < 15 mL/min/1.73m2 Glucose Random 89 60-115 mg/dL Calcium 9.7 8.4-10.2 mg/dL B Type Natriuretic Peptide Reviewed date:07/27/2023 01:18:28 PM Interpretation: Performing Lab:[facility], [address] [place] [phone] Notes/Report: Missed x3Arash ISBELL 0857 Missed [facility] B Type Natriuretic Peptide 262 <100 pg/mL For those patients who are being treated with Natrecor (nesiritide, recombinant BNP), BNP testing should be performed at least two hours post treatment in order to ensure that only endogenous levels of BNP are detected. Complete Blood Count Auto Di ff Reviewed date:08/09/2023 08:51:32 PM Interpretation: Performing Lab:[facility], [address] [place] [phone] Notes/Report: White Blood Count 7.0 4.8-10.8 X10*3/uL Red Blood Count 3.78 4.20-5.50 X10*6/uL Hemoglobin 11.5 12.0-16.0 g/dl Hematocrit 36.1 37.0-47.0 % Mean Corpuscular Volume 95.5 80.0-98.0 fL Mean Corpuscular Hemoglobin 30.4 27.0-33.0 pg Mean Corpuscular HGB Conc 31.9 31.0-35.0 g/dl Red Cell Distribution Width 14.2 11.0-16.0 % Platelet Count 226 160-400 X10*3/uL Mean Platelet Volume 11.3 9.4-12.3 fL Neutrophils Percent Auto 70.0 45-73 % Imm Gran Pct Auto 0.4 0.0-0.4 % Lymphocytes Percent Auto 12.9 20-40 % Monocytes Percent Auto 12.6 2-11 % Eosinophils Percent Auto 3.4 0-4 % Basophils Percent Auto 0.7 0-2 % NRBC Pct Auto 0.0 0.0-0.2 /100WBC Neutrophils Absolute Auto 4.9 2.0-8.3 x10*3/u L Imm Gran Abs Auto 0.03 0.00-0.03 X10*3/uL Lymphocytes Absolute Auto 0.9 1.2-4.9 X10*3/u L Monocytes Absolute Auto 0.9 0.1-1.2 X10*3/uL Eosinophils Absolute Auto 0.2 0.0-0.4 X10*3/u L Basophils Absolute Auto 0.1 0.0-0.2 X10*3/uL NRBC Abs Auto 0.000 0.0-0.012 X10*3/uL Comprehensive [place]. Panel Fa Reviewed date:08/09/2023 08:51:32 PM Interpretation: Performing Lab:[facility], [address] [place] [phone] Notes/Report: Sodium 139 135-145 mmol/L Potassium 4.3 3.3-5.1 mmol/L Chloride 106 96-108 mmol/L Carbon Dioxide 27 22-29 mmol/L Anion Gap 10 12-20 Blood Urea Nitrogen 24 9-16 mg/dL Creatinine 1.25 0.5-1.4 mg/dL Estimated Glomerular Filt Rate 42 NOTE: For -[place] individuals, multiply the result by 1.210. Chronic Kidney Disease: Estimated GFR < 60 mL/min/1.73m2 Severe Kidney Disease: Estimated GFR < 15 mL/min/1.73m2 Glucose Fasting 97 60-99 mg/dL Calcium 9.2 8.4-10.2 mg/dL Bilirubin Total 0.6 0.0-1.0 mg/dL Aspartate Amino Transferase 37 5-31 U/L Alanine Aminotransferase 41 0-31 U/L Total Protein 7.1 6.5-8.0 g/dL Albumin Level 3.6 3.5-5.0 g/dL Alkaline Phosphatase 67 39-117 U/L Lactate Dehydrogenase Reviewed date:08/09/2023 08:51:32 PM Interpretation: Performing Lab:[facility], [address] [place] [phone] Notes/Report: Lactate Dehydrogenase 257 122-220 U/L Lipid Panel Reviewed date:08/09/2023 08:51:32 PM Interpretation: Performing Lab:[facility], [address] [place] [phone] Notes/Report: Triglycerides 51 <150 mg/dL Desirable Triglyceride: less than 150 mg/dL Borderline High Triglyceride 150-199 mg/dL High Triglyceride: 200-499 mg/dL Very High Triglyceride: greater than or equal to 5OO mg/dL Cholesterol 94 <200 mg/dL Desirable Cholesterol: less than 200 mg/dL Borderline High Cholesterol: 200-239 mg/dL High Cholesterol: greater than 239 mg/dL LDL Cholesterol Calculated 38 <100 mg/dL Desirable LDL: less than 100 mg/dL Near Optimal/Above Optimal LDL: 110-129 mg/dL Borderline High LDL: 130-159 mg/dL High LDL: 160-189 mg/dL Very High LDL: greater than or equal to 190 mg/dL HDL Cholesterol 46 >40 mg/dL Desirable HDL: greater than 40 mg/dL Note: This HDL assay may give artificially low results in patients with liver disease. Free T4 (Free Thyroxine) Reviewed date:08/09/2023 08:51:32 PM Interpretation: Performing Lab:[address] [phone] Notes/Report: Free T4 (Free Thyroxine) 1.17 0.71-1.85 ng/dL Carbohydrate Antigen 19-9 Reviewed date:08/09/2023 08:51:32 PM Interpretation: Performing Lab:[address] [phone] Notes/Report: Carbohydrate Antigen 19-9 25 <34 U/mL This test was performed using the Siemens chemiluminescent method. Values obtained from different assay methods cannot be used interchangeably. CA 19-9 levels, regardless of value, should not be interpreted as absolute evidence of the presence or absence of disease. THIS TEST WAS PERFORMED AT: [facility] [address] [place] [phone] ANNAMARIA EVANS MD Thyroid Stimulating Hormone Reviewed date:08/09/2023 08:51:32 PM Interpretation: Performing Lab:[address] [phone] Notes/Report: Thyroid Stimulating Hormone 4.79 0.32-4.0 uIU/ mL Note: A sustained TSH level above 2.5 uIU/mL may warrant further investigation. TSH 3rd Generation ([facility]) MM tomosynthesis screening L T Reviewed date:09/10/2023 04:15:43 PM Interpretation: Performing Lab: Notes/Report: [facility] [address] [place] [address] Mammography Report Signed Patient: Kayla Cheung MR#: [id number] : 1945 Acct:[id number] Age/Sex: 78 / F ADM Date: 08/12/23 Loc: HO.MAMMO Attending Dr: Demetrius Cote MD Ordering Physician: Demetrius Cote MD Results: 2Benign Findings Date of Service: 08/12/23 Follow Up: 1 Year From [facility] Mammogram Procedure(s): MM tomosynthesis screening LT Accession Number(s): [id number] cc: Demetrius Cote MD EXAMINATION: MM SCREENING DIGITAL BREAST TOMOSYNTHESIS, LEFT CLINICAL INFORMATION: Screening. Asymptomatic. The patient is status post right mastectomy in 2016. COMPARISON: Mammography: This study is compared with prior exams dating back to TECHNIQUE: Digital breast tomosynthesis is performed in both the craniocaudal and mediolateral oblique views along with computer-aided detection (CAD). Synthesized 2D images are generated from the tomosynthesis. FINDINGS: There are scattered areas of fibroglandular density (ACR BI-RADS breast composition Category b). There are no significant masses, abnormal calcifications, or other abnormalities. There are unchanged, benign calcifications in the upper outer quadrant of the left breast. There is a pacemaker in superior aspect of the left breast. MM/MM tomosynthesis screening LT IMPRESSION: No mammographic evidence of malignancy. ASSESSMENT: BI-RADS BI-RADS 2 - Benign Findings RECOMMENDATION: Routine annual mammography screening. 1 year F/U This examination should not preclude the clinical evaluation of a suspicious palpable abnormality. This patient's information was entered into a reminder system with a target due date for their next mammogram. Dictated By: Emy Barron MD Signed By: <Electronically signed by Emy Barron MD in OV> 08/18/23 2159 DD/ 1305 TD/TT: Explosive Operator Bomb: Lipid Panel Reviewed date:09/10/2023 04:15:43 PM Interpretation: Performing Lab:[facility], [address] [place] [phone] Notes/Report: Triglycerides 63 <150 mg/dL Desirable Triglyceride: less than 150 mg/dL Borderline High Triglyceride 150-199 mg/dL High Triglyceride: 200-499 mg/dL Very High Triglyceride: greater than or equal to 5OO mg/dL Cholesterol 80 <200 mg/dL Desirable Cholesterol: less than 200 mg/dL Borderline High Cholesterol: 200-239 mg/dL High Cholesterol: greater than 239 mg/dL LDL Cholesterol Calculated 40 <100 mg/dL Desirable LDL: less than 100 mg/dL Near Optimal/Above Optimal LDL: 110-129 mg/dL Borderline High LDL: 130-159 mg/dL High LDL: 160-189 mg/dL Very High LDL: greater than or equal to 190 mg/dL HDL Cholesterol 28 >40 mg/dL Desirable HDL: greater than 40 mg/dL Note: This HDL assay may give artificially low results in patients with liver disease. Free T4 (Free Thyroxine) Reviewed date:09/10/2023 04:15:43 PM Interpretation: Performing Lab:[facility], [address] [place] [phone] Notes/Report: Free T4 (Free Thyroxine) 1.12 0.71-1.85 ng/dL XR chest 4 views Reviewed date:09/10/2023 04:15:43 PM Interpretation: Performing Lab: Notes/Report: [facility] [address] [place] [address] [place] [address] XRay Report Signed Patient: Kayla Cheung MR#: [id number] : 1945 Acct:[id number] Age/Sex: 78 / F ADM Date: 09/10/23 Loc: HO.HMGCX Attending Dr: Demetrius Cote MD Ordering Physician: Demetrius Cote MD Date of Service: 09/10/23 Procedure(s): XR chest 4 views Accession Number(s): [id number] cc: Demetrius Cote MD EXAMINATION: XR CHEST CLINICAL INFORMATION: Chronic cough COMPARISON: Chest 07/23/2023 TECHNIQUE: 4 views of the chest were obtained. FINDINGS: There is increased opacity in the left lower lobe and lingula consistent with atelectasis and/or pneumonia. There is slight blunting of the left costophrenic angle suggestive of a small pleural effusion versus pleural thickening. Heart size is normal. No interstitial pulmonary edema. There are dual pacer electrodes in the right atrium and right ventricle. 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 Kyphoplasty changes are present at T11 and T12. XR/XR chest 4 views IMPRESSION: 1. Left lower lobe and lingular atelectasis and/or pneumonia. 2. Small left pleural effusion versus pleural thickening. Dictated By: Romy Whitaker MD Signed By: <Electronically signed by Romy Whitaker MD in OV> 09/10/23 1027 DD/ 0858 TD/TT: Explosive Operator Bomb: Complete Blood Count Auto Di ff Reviewed date:09/10/2023 04:15:43 PM Interpretation: Performing Lab:[address] [phone] Notes/Report: White Blood Count 11.5 4.8-10.8 X10*3/uL Red Blood Count 3.71 4.20-5.50 X10*6/uL Hemoglobin 11.5 12.0-16.0 g/dl Hematocrit 34.2 37.0-47.0 % Mean Corpuscular Volume 92.2 80.0-98.0 fL Mean Corpuscular Hemoglobin 31.0 27.0-33.0 pg Mean Corpuscular HGB Conc 33.6 31.0-35.0 g/dl Red Cell Distribution Width 15.3 11.0-16.0 % Platelet Count 345 160-400 X10*3/uL Mean Platelet Volume 10.8 9.4-12.3 fL Neutrophils Percent Auto 78.9 45-73 % Imm Gran Pct Auto 4.4 0.0-0.4 % Lymphocytes Percent Auto 8.0 20-40 % Monocytes Percent Auto 7.7 2-11 % Eosinophils Percent Auto 0.6 0-4 % Basophils Percent Auto 0.4 0-2 % NRBC Pct Auto 0.9 0.0-0.2 /100WBC Neutrophils Absolute Auto 9.1 2.0-8.3 x10*3/u L Imm Gran Abs Auto 0.51 0.00-0.03 X10*3/uL Lymphocytes Absolute Auto 0.9 1.2-4.9 X10*3/u L Monocytes Absolute Auto 0.9 0.1-1.2 X10*3/uL Eosinophils Absolute Auto 0.1 0.0-0.4 X10*3/u L Basophils Absolute Auto 0.1 0.0-0.2 X10*3/uL NRBC Abs Auto 0.100 0.0-0.012 X10*3/uL Erythrocyte Sedimentation Ra te Reviewed date:09/10/2023 04:15:43 PM Interpretation: Performing Lab:[facility], [address] [place] [phone] Notes/Report: Erythrocyte Sedimentation Rate 85 0-20 MM/HR Patients with polycythemia and many hemoglobin abnormalities may have depressed sed rates whereas patients with anemia may have elevated sed rates. Comprehensive [place]. Panel Fa Reviewed date:09/10/2023 04:15:43 PM Interpretation: Performing Lab:[facility], [address] [place] [phone] Notes/Report: Sodium 136 135-145 mmol/L Potassium 4.1 3.3-5.1 mmol/L Slight Hemoly sis Chloride 103 96-108 mmol/L Carbon Dioxide 21 22-29 mmol/L Anion Gap 16 12-20 Blood Urea Nitrogen 18 9-16 mg/dL Creatinine 0.99 0.5-1.4 mg/dL Estimated Glomerular Filt Rate 54 NOTE: For -[place] individuals, multiply the result by 1.210. Chronic Kidney Disease: Estimated GFR < 60 mL/min/1.73m2 Severe Kidney Disease: Estimated GFR < 15 mL/min/1.73m2 Glucose Fasting 100 60-99 mg/dL A fasting glucose from 100-125 mg/dl is considered impaired (pre-diabetes). Calcium 9.9 8.4-10.2 mg/dL Bilirubin Total 0.8 0.0-1.0 mg/dL Aspartate Amino Transferase 180 5-31 U/L Slight Hemolysis Alanine Aminotransferase 174 0-31 U/L Total Protein 7.8 6.5-8.0 g/dL Albumin Level 3.0 3.5-5.0 g/dL Alkaline Phosphatase 114 39-117 U/L Thyroid Stimulating Hormone Reviewed date:09/10/2023 04:15:43 PM Interpretation: Performing Lab:[facility], [address] [place] [phone] Notes/Report: Thyroid Stimulating Hormone 0.06 0.32-4.0 uIU/ mL TSH 3rd Generation ([facility]) REASON FOR REFERRAL No Information MEDICATIONS Medication SIG (Take, Route, Frequency, Duration) Notes Start Date End Date Status traZODone HCl 150 MG TAKE 1 TABLET BY MO UT EVERY NIGHT AT BEDTIME for 30 Active Levothyroxine Sodium 100 MCG 1 tablet in the morning on an empty stomach Orally Once a day Active Metoprolol Tartrate 25 MG TAKE 1 TABLET 2 TIMES DAILYWITH FOOD for 90 Active Alendronate Sodium 70 MG TAKE 1 TABLET B Y MOUTH 1 TIME A WEEK 30 MINUTES BEFORE FIRST FOOD OR BEVERAGE OR MEDICINE OF THE DAY WITH WATER for 28 Active Eliquis 5 MG 1 tablet Orally Twic e a day Active D3-1000 25 MCG (1000 UT) 1 capsule Orall y Once a day Active levoFLOXacin 500 MG 1 tablet Orally Once a day 09/10/2023 Active Calcium Carbonate 1500 (600 Ca) MG 1 tablet with food Orally Twice a day Active Melatonin 1 MG 1 tablet at bedtime as needed Orally Once a day Active Furosemide 20 MG TAKE 1 TABLET BY JOSÉ TH EVERY OTHER DAY Oral Active Simvastatin 40 MG 1 tablet in the even ing Orally Once a day Active FeroSul 325 (65 Fe) MG 1 tablet Orally O nce a day Active Amiodarone HCl 200 MG TAKE 2 TABLETS BY MOUTH TWICE DAILY FOR 12 DAYS THEN TAKE 1 TABLET BY MOUTH DAILY Oral Active Aspirin 81 81 MG 1 tablet Orally Once a day Active IMMUNIZATIONS Vaccine Route Administration Date Status Comme nts Influenza Unknown 03/05/2013 Administered Influenza IM Intramuscular 03/11/2014 Administered Pneumococcal IM Intramuscular 07/23/2014 Administered Influenza IM Intramuscular 02/16/2015 Administered Influenza IM Intramuscular 03/14/2016 Administered Zostavax Unknown 11/20/2016 Administered Influenza no Preserv 3 and > IM Intramuscular 03/07/2017 Administered COVID- 19 Vaccine IM Intramuscular 03/10/2021 Administered covid vaccine SOCIAL HISTORY Tobacco Use: Social History Observation Description Date Details (start date - stop date) Former Smoker NA - NA Sex Assigned At : Social History Observation Description Sex Assigned At Unknown Tobacco Use/Smoking Question Answer Notes Patient is a former smoker How long has it been since you last smoked? > 10 years Additional Findings: Tobacco Non-User Ex-cigaret te smoker Alcohol Screen Question Answer Notes Did you have a drink containing alcohol in the p ast year? No Points 0 Interpretation Negative PROBLEMS Problem Type ICD Code Onset Dates Problem Status W/U Status Risk SNOMED Code Notes Problem Former smoker (Z87.891) Active confirmed 7925067 She is highly motivated not to smoke. We have discussed strategies for maintenance of abstinence in times of stress and illness. Problem Obesity (E66.9) Active confirmed 420852 001 She has continue her efforts at weight loss and gain prevention. We reviewed her weight loss strategy today. Problem Calculus of gallbladder without cholecystitis without obstruction (K80.20) Active confirmed 849885611 Her gallstones were asymptomatic and now is no sign of cholecystitis today. She will be observed cautiously. Problem Anticoagulated (Z79.01) Active confirmed [id number] . There is no contraindication to this patient remaining on anticoagulation during the procedure. I have spoken to the surgical instrument technician at the ophthalmologists office. They do not require the anticoagulation to be held. Problem Hyperlipidemia type II (E78.0) Active confirmed 651914959 Her lipid s have been well controlled. Her fasting lipid profile will be ordered periodically. No change in her regimen was needed today. Problem Atrial fibrillation (I48.91) Active confirmed 98072986 She has been well controlled lately. She has been compliant with all of her medications. She was in a regular rhythm today Problem Hodgkins disease (C81.90) Active confirmed 151431645 There is no si gn of recurrent Hodgkin's or treatment related dysfunction. Problem Psoriasis (L40.9) Active confirmed 7415789 Her psoriasis is very mild and does not require treatment at this time. Problem Nonrheumatic aortic valve stenosis (I35.0) Active confirmed 669867387 Her exercise tolerance is improved and she has no long-term side effects from repair of the aortic valve. He is under the care of the auto tire recapper and compliant with her therapies. Problem Hypothyroid (E03.9) Active confirmed 29613190 Her TSH has be en slightly elevated. If it remains this way on repeat her dose will be adjusted. Problem Wedge compression fracture of T11 vertebra (S22.080A) Active confirmed 328719038 Her pain has become minimally but it can be reproduced with percussion. No change in her regimen is needed. Problem Marginal zone lymphoma (C85.80) Active confirmed 596772706 There was no sign of disease progression on today's examination and observation will continue. Problem Sjoegren syndrome (M35.00) Active confirmed 29389953 This problem i s well controlled with oral medication. Problem Right knee DJD (M17.9) Active confirmed 435778315 The pain in he r right knee is mild to moderate and unchanged. No change in her regimen was needed. Problem Invasive ductal carcinoma of right breast (C50.911) Active confirmed 113210087 There was no sign of recurrent disease or new primary. Radiation changes are demonstrated. There is one radiation tattoo over the sternum. Problem Coagulopathy (D68.9) Active confirmed Coagulopathy (88826853) She has a history of pulmonary embolism and atrial fibrillation and is chronically anticoagulated. She has had no episodes of bleeding. She has had no further episodes of arterial clotting or venous thromboembolism. 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 A small hypodense lesion is seen measuring 1.8 x 1.1 cm which is unchanged. It will be followed radiographically at this time. Problem Pancreatic mass (K86.9) Active confirmed Pancreatic mass (311614075) The cystic mass in the liver has been stable. The CA-19-9 wss elevated above normal but Is now normal at 25. A CT scan will be done in October to assess any change. Problem Hyperlipidemia type II (E78.01) Active confirmed Pure hypercholesterole tha (781917877) Her most recent fasting lipid profile shows good control of her lipids. No change in her regimen as needed. Problem Acute asthmatic bronchitis (J45.909) Active confirmed 986589517 Her viral syndromes have resolved and she is no longer wheezing. Problem Osteopenia after menopause (M81.0) Active confirmed 487413814 She will have periodic bone densities. I recommended Os-Samy 500 mg twice a day. The thousand units of vitamin D daily. She will be evaluated periodically for alendronate. Problem Hypercholestere tha (E78.00) Active confirmed Pure hypercholesterole tha (393364097) Problem Chronic congestive heart failure, unspecified heart failure type (I50.9) Active confirmed 55569879 Her CHF is n ow well compensated and she is compliant with her medications. Cardiology follow-up has been arranged. Problem S/P TAVR (transcatheter aortic valve replacement) (Z95.2) Active confirmed 2297250140086 VITAL SIGNS Heart Rate 76 /min 09/13/2023 Temperature 97.3 degrees Fahrenheit 09/13/2023 Oximetry 97 % 08/12/2023 Blood pressure diastolic 64 mm Hg 09/13/2023 Height 63 in 09/13/2023 Blood pressure systolic 141 mm Hg 09/13/2023 Weight 166 lbs 09/13/2023 BMI 29.4 kg/m2 09/13/2023 Encounters Encounter Location Date Provider Diagnosis Demetrius Cote III, MD [address] [place] [address] [place] [address] 11/19/2022 Demetrius Cote 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 ; Annual physical exam Z00.00 ; Obesity E66.9 ; Hypothyroid E03.9 ; Hyperlipidemia type II E78.01 ; Former smoker Z87.891 ; Wedge compression fracture of T11 vertebra S22.080A ; Hodgkins disease C81.90 ; 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 ; Psoriasis L40.9 ; Sjoegren syndrome M35.00 ; 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 and Atrial fibrillation I48.91 Demetrius Cote III, MD [address] [place] [address] [place] [address] 08/07/2023 Demetrius Cote Edema of left lower extremity R60.0 ; 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 ; Obesity E66.9 ; Former smoker Z87.891 ; Wedge compression fracture of T11 vertebra S22.080A ; Hodgkins disease C81.90 ; Sjoegren syndrome M35.00 ; Psoriasis L40.9 ; 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 ; Pancreatic mass K86.9 ; Hypothyroid E03.9 ; Atrial fibrillation I48.91 ; Anticoagulated Z79.01 and Nonrheumatic aortic valve stenosis I35.0 Demetrius Cote III, MD [address] [place] [address] [place] [address] 02/06/2023 Demetrius Cote 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 ; Obesity E66.9 ; Hypothyroid E03.9 ; Hyperlipidemia type II E78.01 ; Pancreatic tumor D49.0 ; Hodgkins disease C81.90 ; 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 ; Wedge compression fracture of T11 vertebra S22.080A ; Former smoker Z87.891 ; 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 ; Sjoegren syndrome M35.00 ; Psoriasis L40.9 ; Atrial fibrillation I48.91 ; Osteopenia after menopause M81.0 and Coagulopathy D68.9 Demetrius Cote III, MD [address] [place] [address] [place] [address] 06/10/2023 Demetrius Cote 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 ; Obesity E66.9 ; Hypothyroid E03.9 ; Hyperlipidemia type II E78.0 ; Pancreatic mass K86.9 ; Wedge compression fracture of T11 vertebra S22.080A ; Hodgkins disease C81.90 ; 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 ; Sjoegren syndrome M35.00 ; 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 and Former smoker Z87.891 Demetrius Cote III, MD [address] [place] [address] [place] [address] 07/17/2023 Demetrius Cote 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 ; Edema of left lower extremity R60.0 ; Former smoker Z87.891 ; Obesity E66.9 ; Hodgkins disease C81.90 ; Wedge compression fracture of T11 vertebra S22.080A ; 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 and Sjoegren syndrome M35.00 Demetrius Cote III, MD [address] [place] [address] [place] [address] 08/12/2023 Demetrius Cote Edema of left lower extremity R60.0 ; 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 ; Obesity E66.9 ; Former smoker Z87.891 ; Wedge compression fracture of T11 vertebra S22.080A and Hodgkins disease C81.90 Demetrius Cote III, MD [address] [place] [address] [place] [address] 08/28/2023 Demetrius Cote Hodgkins disease C81 .90 ; 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 ; Obesity E66.9 ; Former smoker Z87.891 ; Wedge compression fracture of T11 vertebra S22.080A ; 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 ; Sjoegren syndrome M35.00 ; Psoriasis L40.9 ; 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 ; Atrial fibrillation I48.91 ; Hypothyroid E03.9 ; Hyperlipidemia type II E78.0 ; Pancreatic mass K86.9 ; Coagulopathy D68.9 ; Osteopenia after menopause M81.0 ; Anticoagulated Z79.01 ; Nonrheumatic aortic valve stenosis I35.0 and Chronic congestive heart failure, unspecified heart failure type I50.9 Demetrius Cote III, MD [address] [place] [address] [place] [address] 09/13/2023 Demetrius Cote Hodgkins disease C81 .90 ; 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 ; Former smoker Z87.891 ; Wedge compression fracture of T11 vertebra S22.080A ; 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 ; Sjoegren syndrome M35.00 ; Psoriasis L40.9 ; 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 ; Hypothyroid E03.9 ; Atrial fibrillation I48.91 ; Nonrheumatic aortic valve stenosis I35.0 ; Anticoagulated Z79.01 and Acute asthmatic bronchitis J45.909 Demetrius Cote III, MD [address] [place] [address] [place] [address] 12/31/2022 Demetrius Cote III, MD [address] [place] [address] [place] [address] 07/23/2023 Demetrius Cote III, MD [address] [place] [address] [place] [address] 07/25/2023 Demetrius Cote III, MD [address] [place] [address] [place] [address] 08/08/2023 Demetrius Cote III, MD [address] [place] [address] [place] [address] 08/26/2023 Demetrius Cote III, MD [address] [place] [address] [place] [address] 09/09/2023 Demetrius Cote III, MD [address] [place] [address] [place] [address] 09/10/2023 Demetrius Cote III, MD [address] [place] [address] [place] [address] 09/11/2023 Demetrius Cote III, MD [address] [place] [address] [place] [address] 09/12/2023 Demetrius Cote III, MD [address] [place] [address] [place] [address] 09/16/2023 Demetrius Cote III, MD [address] [place] [address] [place] [address] 09/19/2023 Demetrius Cote III, MD [address] [place] [address] [place] [address] 09/23/2023 Demetrius Cote III, MD [address] [place] [address] [place] [address] 09/09/2023 Demetrius Cote Hodgkins disease C81 .90 ; Obesity E66.9 ; Atrial fibrillation I48.91 ; Hypothyroid E03.9 ; Hyperlipidemia type II E78.01 ; Acute asthmatic bronchitis J45.909 and Former smoker Z87.891 Demetrius Cote III, MD [address] [place] [address] [place] [address] 07/16/2023 Demetrius Cote 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 ; Edema of left lower extremity R60.0 ; Hodgkins disease C81.90 ; Wedge compression fracture of T11 vertebra S22.080A ; Former smoker Z87.891 and Obesity E66.9 Demetrius Cote III, MD [address] [place] [address] [place] [address] 07/26/2023 Demetrius Cote ASSESSMENTS Encounter Date Diagnosis Assessment Notes Treatment Notes Treatment Clinical Notes 11/19/2022 Annual physical exam (ICD-10 - Z00.00) She was healthy and well today with no new problems. Her numerous medical issues have been addressed and are stable at this time. 11/19/2022 Invasive ductal carcinoma of right breast (ICD-10 - C50.911) There was no sign of recurrent breast cancer or a new primary today. She will continue to do left breast self-examination. 08/07/2023 Invasive ductal carcinoma of right breast (ICD-10 - C50.911) There was no sign of recurrent disease or new primary. Radiation changes are demonstrated. There is one radiation tattoo over the sternum. 08/07/2023 Edema of left lower extremity (ICD-10 - R60.0) The edema has resolved. 02/06/2023 Obesity (ICD-10 - E66.9) Her weight is within 1 pound of his previous value. We reviewed her weight loss strategy. I recommend a gradual weight loss a rate of one half of a pound per week. 02/06/2023 Invasive ductal carcinoma of right breast (ICD-10 - C50.911) There was no sign of recurrent disease or new primary. Radiation changes are demonstrated. There is one radiation tattoo over the sternum. 06/10/2023 Obesity (ICD-10 - E66.9) She remains obese but has lost 2 pounds. We discussed diet and nutrition. We made a plan for weight loss. 06/10/2023 Invasive ductal carcinoma of right breast (ICD-10 - C50.911) There was no sign of recurrent disease or new primary. Radiation changes are demonstrated. There is one radiation tattoo over the sternum. 07/17/2023 Invasive ductal carcinoma of right breast (ICD-10 - C50.911) There was no sign of recurrent disease or new primary. Radiation changes are demonstrated. There is one radiation tattoo over the sternum. 07/17/2023 Edema of left lower extremity (ICD-10 - R60.0) There was no reproducible pain today and only trace edema around the ankle. There was no sign of a deep venous thrombosis. 08/12/2023 Invasive ductal carcinoma of right breast (ICD-10 - C50.911) There was no sign of recurrent disease or new primary. Radiation changes are demonstrated. There is one radiation tattoo over the sternum. 08/12/2023 Edema of left lower extremity (ICD-10 - R60.0) The edema has resolved. 08/28/2023 Hodgkins disease (ICD-10 - C81.90) There is no sign of recurrent Hodgkin's or treatment related dysfunction. 08/28/2023 Invasive ductal carcinoma of right breast (ICD-10 - C50.911) There was no sign of recurrent disease or new primary. Radiation changes are demonstrated. There is one radiation tattoo over the sternum. 09/13/2023 Hodgkins disease (ICD-10 - C81.90) There is no sign of recurrent Hodgkin's or treatment related dysfunction. 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 Radiation changes are demonstrated. There is one radiation tattoo over the sternum. 09/09/2023 Obesity (ICD-10 - E66.9) She has continue her efforts at weight loss and gain prevention. We reviewed her weight loss strategy today. 09/09/2023 Hodgkins disease (ICD-10 - C81.90) There is no sign of recurrent Hodgkin's or treatment related dysfunction. 07/16/2023 Invasive ductal carcinoma of right breast (ICD-10 - C50.911) There was no sign of recurrent disease or new primary. Radiation changes are demonstrated. There is one radiation tattoo over the sternum. 07/16/2023 Edema of left lower extremity (ICD-10 - R60.0) She was given an appointment to come to the office tomorrow. Exam in. 11/19/2022 Obesity (ICD-10 - E66.9) Her weight is stable. We discussed her weight loss strategy. We made a plan to lose weight at a rate of one half of a pound per week. 08/07/2023 Obesity (ICD-10 - E66.9) She remains obese but has lost 1 pound. We discussed diet and nutrition. We made a plan for weight loss. 02/06/2023 Hypothyroid (ICD-10 - E03.9) Her thyroid function tests are in the normal range. No change in her dose of levothyroxine was necessary. 06/10/2023 Hypothyroid (ICD-10 - E03.9) She is euthyroid on medication. No change in her regimen was needed today. 07/17/2023 Former smoker (ICD-10 - Z87.891) She is highly motivated not to smoke. We have discussed strategies for maintenance of abstinence in times of stress and illness. 08/12/2023 Obesity (ICD-10 - E66.9) She remains obese but has lost 1 pound. We discussed diet and nutrition. We made a plan for weight loss. 08/28/2023 Obesity (ICD-10 - E66.9) She remains obese but has lost 1 pound. We discussed diet and nutrition. We made a plan for weight loss. 09/13/2023 Former smoker (ICD-10 - Z87.891) She is highly motivated not to smoke. We have discussed strategies for maintenance of abstinence in times of stress and illness. 09/09/2023 Atrial fibrillation (ICD-10 - I48.91) She has been well controlled lately. She has been compliant with all of her medications. 07/16/2023 Hodgkins disease (ICD-10 - C81.90) There is no sign of recurrent Hodgkin's or treatment related dysfunction. 11/19/2022 Hypothyroid (ICD-10 - E03.9) She is euthyroid at this time and compliant with her medication. 08/07/2023 Former smoker (ICD-10 - Z87.891) She is highly motivated not to smoke. We have discussed strategies for maintenance of abstinence in times of stress and illness. 02/06/2023 Hyperlipidemia type II (ICD-10 - E78.01) Her lipids are stable at this time. No change in her regimen was made. 06/10/2023 Hyperlipidemia type II (ICD-10 - E78.0) Her lipids have been well controlled. Her fasting lipid profile will be ordered periodically. No change in her regimen was needed today. 07/17/2023 Obesity (ICD-10 - E66.9) She remains obese but has lost 2 pounds. We discussed diet and nutrition. We made a plan for weight loss. 08/12/2023 Former smoker (ICD-10 - Z87.891) She is highly motivated not to smoke. We have discussed strategies for maintenance of abstinence in times of stress and illness. 08/28/2023 Former smoker (ICD-10 - Z87.891) She is highly motivated not to smoke. We have discussed strategies for maintenance of abstinence in times of stress and illness. 09/13/2023 Wedge compression fracture of T11 vertebra (ICD-10 - S22.080A) Her pain has become minimally but it can be reproduced with percussion. No change in her regimen is needed. 09/09/2023 Hypothyroid (ICD-10 - E03.9) Her TSH has been slightly elevated. If it remains this way on repeat her dose will be adjusted. 07/16/2023 Wedge compression fracture of T11 vertebra (ICD-10 - S22.080A) Her pain has become minimally but it can be reproduced with percussion. No change in her regimen is needed. 11/19/2022 Hyperlipidemia type II (ICD-10 - E78.01) Her lipids are stable, will be checked periodically. 08/07/2023 Wedge compression fracture of T11 vertebra (ICD-10 - S22.080A) Her pain has become minimally but it can be reproduced with percussion. No change in her regimen is needed. 02/06/2023 Pancreatic tumor (ICD-10 - D49.0) She is asymptomatic and there is no sign of progression. 06/10/2023 Pancreatic mass (ICD-10 - K86.9) The cystic mass in the liver has been stable. The CA-19-9 is elevated above normal but has fallen from his previous value. A CT scan will be done in October to assess any change. 07/17/2023 Hodgkins disease (ICD-10 - C81.90) There is no sign of recurrent Hodgkin's or treatment related dysfunction. 08/12/2023 Wedge compression fracture of T11 vertebra (ICD-10 - S22.080A) Her pain has become minimally but it can be reproduced with percussion. No change in her regimen is needed. 08/28/2023 Wedge compression fracture of T11 vertebra (ICD-10 - S22.080A) Her pain has become minimally but it can be reproduced with percussion. No change in her regimen is needed. 09/13/2023 Marginal zone lymphoma (ICD-10 - C85.80) There was no sign of disease progression on today's examination and observation will continue. 09/09/2023 Hyperlipidemia type II (ICD-10 - E78.01) Her most recent fasting lipid profile shows good control of her lipids. No change in her regimen as needed. 07/16/2023 Former smoker (ICD-10 - Z87.891) She is highly motivated not to smoke. We have discussed strategies for maintenance of abstinence in times of stress and illness. 11/19/2022 Former smoker (ICD-10 - Z87.891) She is highly motivated not to smoke. We have discussed strategies for maintenance of abstinence in times of stress and illness. 08/07/2023 Hodgkins disease (ICD-10 - C81.90) There is no sign of recurrent Hodgkin's or treatment related dysfunction. 02/06/2023 Hodgkins disease (ICD-10 - C81.90) There is no sign of recurrent Hodgkin's or treatment related dysfunction. 06/10/2023 Wedge compression fracture of T11 vertebra (ICD-10 - S22.080A) Her pain has become minimally but it can be reproduced with percussion. No change in her regimen is needed. 07/17/2023 Wedge compression fracture of T11 vertebra (ICD-10 - S22.080A) Her pain has become minimally but it can be reproduced with percussion. No change in her regimen is needed. 08/12/2023 Hodgkins disease (ICD-10 - C81.90) There is no sign of recurrent Hodgkin's or treatment related dysfunction. 08/28/2023 Right knee DJD (ICD-10 - M17.9) The pain in her right knee is mild to moderate and unchanged. No change in her regimen was needed. 09/13/2023 Sjoegren syndrome (ICD-10 - M35.00) This problem is well controlled with oral medication. 09/09/2023 Acute asthmatic bronchitis (ICD-10 - J45.909) She will be treated appropriately after the results of a chest x-ray are available. This will be done today. 07/16/2023 Obesity (ICD-10 - E66.9) She remains obese but has lost 2 pounds. We discussed diet and nutrition. We made a plan for weight loss. 11/19/2022 Wedge compression fracture of T11 vertebra (ICD-10 - S22.080A) Her pain has become minimally but it can be reproduced with percussion. No change in her regimen is needed. 08/07/2023 Sjoegren syndrome (ICD-10 - M35.00) This problem is well controlled with oral medication. 02/06/2023 Marginal zone lymphoma (ICD-10 - C85.80) There was no sign of disease progression on today's examination and observation will continue. 06/10/2023 Hodgkins disease (ICD-10 - C81.90) There is no sign of recurrent Hodgkin's or treatment related dysfunction. 07/17/2023 Marginal zone lymphoma (ICD-10 - C85.80) There was no sign of disease progression on today's examination and observation will continue. 08/28/2023 Sjoegren syndrome (ICD-10 - M35.00) This problem is well controlled with oral medication. 09/13/2023 Psoriasis (ICD-10 - L40.9) Her psoriasis is very mild and does not require treatment at this time. 09/09/2023 Former smoker (ICD-10 - Z87.891) She is highly motivated not to smoke. We have discussed strategies for maintenance of abstinence in times of stress and illness. 11/19/2022 Hodgkins disease (ICD-10 - C81.90) There is no sign of recurrent Hodgkin's or treatment related dysfunction. 08/07/2023 Psoriasis (ICD-10 - L40.9) Her psoriasis is very mild and does not require treatment at this time. 02/06/2023 Wedge compression fracture of T11 vertebra (ICD-10 - S22.080A) Her pain has become minimally but it can be reproduced with percussion. No change in her regimen is needed. 06/10/2023 Marginal zone lymphoma (ICD-10 - C85.80) There was no sign of disease progression on today's examination and observation will continue. 07/17/2023 Sjoegren syndrome (ICD-10 - M35.00) This problem is well controlled with oral medication. 08/28/2023 Psoriasis (ICD-10 - L40.9) Her psoriasis is very mild and does not require treatment at this time. 09/13/2023 Right knee DJD (ICD-10 - M17.9) The pain in her right knee is mild to moderate and unchanged. No change in her regimen was needed. 11/19/2022 Marginal zone lymphoma (ICD-10 - C85.80) There was no sign of disease progression on today's examination and observation will continue. 08/07/2023 Marginal zone lymphoma (ICD-10 - C85.80) There was no sign of disease progression on today's examination and observation will continue. 02/06/2023 Former smoker (ICD-10 - Z87.891) She is highly motivated not to smoke. We have discussed strategies for maintenance of abstinence in times of stress and illness. 06/10/2023 Sjoegren syndrome (ICD-10 - M35.00) This problem is well controlled with oral medication. 08/28/2023 Marginal zone lymphoma (ICD-10 - C85.80) There was no sign of disease progression on today's examination and observation will continue. 09/13/2023 Hypothyroid (ICD-10 - E03.9) Her TSH has been slightly elevated. If it remains this way on repeat her dose will be adjusted. 11/19/2022 Psoriasis (ICD-10 - L40.9) Her psoriasis is very mild and does not require treatment at this time. 08/07/2023 Pancreatic mass (ICD-10 - K86.9) The cystic mass in the liver has been stable. The CA-19-9 is elevated above normal but has fallen from his previous value. A CT scan will be done in October to assess any change. 02/06/2023 Right knee DJD (ICD-10 - M17.9) The pain in her right knee is mild to moderate and unchanged. No change in her regimen was needed. 06/10/2023 Right knee DJD (ICD-10 - M17.9) The pain in her right knee is mild to moderate and unchanged. No change in her regimen was needed. 08/28/2023 Atrial fibrillation (ICD-10 - I48.91) She is in a regular rhythm at 70 bpm today with no ectopy. Her pacemaker appears to be functioning 09/13/2023 Atrial fibrillation (ICD-10 - I48.91) She has been well controlled lately. She has been compliant with all of her medications. She was in a regular rhythm today 11/19/2022 Sjoegren syndrome (ICD-10 - M35.00) This problem is well controlled with oral medication. 08/07/2023 Hypothyroid (ICD-10 - E03.9) She is euthyroid on medication. No change in her regimen was needed today. 02/06/2023 Sjoegren syndrome (ICD-10 - M35.00) This problem is well controlled with oral medication. 06/10/2023 Former smoker (ICD-10 - Z87.891) She is highly motivated not to smoke. We have discussed strategies for maintenance of abstinence in times of stress and illness. 08/28/2023 Hypothyroid (ICD-10 - E03.9) She is euthyroid on medication. No change in her regimen was needed today. 09/13/2023 Nonrheumatic aortic valve stenosis (ICD-10 - I35.0) Her exercise tolerance is improved and she has no long-term side effects from repair of the aortic valve. He is under the care of the auto tire recapper and compliant with her therapies. 11/19/2022 Right knee DJD (ICD-10 - M17.9) The pain in her right knee is mild to moderate and unchanged. No change in her regimen was needed. 08/07/2023 Atrial fibrillation (ICD-10 - I48.91) She is in a regular rhythm at 70 bpm today with no ectopy. Her pacemaker appears to be functioning 02/06/2023 Psoriasis (ICD-10 - L40.9) Her psoriasis is very mild and does not require treatment at this time. 08/28/2023 Hyperlipidemia type II (ICD-10 - E78.0) Her lipids have been well controlled. Her fasting lipid profile will be ordered periodically. No change in her regimen was needed today. 09/13/2023 Anticoagulated (ICD-10 - Z79.01) . There is no contraindication to this patient remaining on anticoagulation during the procedure. I have spoken to the surgical instrument technician at the ophthalmologists office. They do not require the anticoagulation to be held. 11/19/2022 Atrial fibrillation (ICD-10 - I48.91) She is in a regular rhythm at 70 bpm today with no ectopy. Her pacemaker appears to be functioning 08/07/2023 Anticoagulated (ICD-10 - Z79.01) . There is no contraindication to this patient remaining on anticoagulation during the procedure. I have spoken to the surgical instrument technician at the ophthalmologists office. They do not require the anticoagulation to be held. 02/06/2023 Atrial fibrillation (ICD-10 - I48.91) She is in a regular rhythm at 70 bpm today with no ectopy. Her pacemaker appears to be functioning 08/28/2023 Pancreatic mass (ICD-10 - K86.9) The cystic mass in the liver has been stable. The CA-19-9 wss elevated above normal but Is now normal at 25. A CT scan will be done in October to assess any change. 09/13/2023 Acute asthmatic bronchitis (ICD-10 - J45.909) Her viral syndromes have resolved and she is no longer wheezing. 08/07/2023 Nonrheumatic aortic valve stenosis (ICD-10 - I35.0) Her exercise tolerance is improved and she has no long-term side effects from repair of the aortic valve. He is under the care of the auto tire recapper and compliant with her therapies. 02/06/2023 Osteopenia after menopause (ICD-10 - M81.0) She will have periodic bone densities. I recommended Os-Samy 500 mg twice a day. The thousand units of vitamin D daily. She will be evaluated periodically for alendronate. 08/28/2023 Coagulopathy (ICD-10 - D68.9) She has a history of pulmonary embolism and atrial fibrillation and is chronically anticoagulated. She has had no episodes of bleeding. She has had no further episodes of arterial clotting or venous thromboembolism. 02/06/2023 Coagulopathy (ICD-10 - D68.9) She has a history of pulmonary embolism and atrial fibrillation and is chronically anticoagulated. She has had no episodes of bleeding. She has had no further episodes of arterial clotting or venous thromboembolism. 08/28/2023 Osteopenia after menopause (ICD-10 - M81.0) She will have periodic bone densities. I recommended Os-Samy 500 mg twice a day. The thousand units of vitamin D daily. She will be evaluated periodically for alendronate. 08/28/2023 Anticoagulated (ICD-10 - Z79.01) . There is no contraindication to this patient remaining on anticoagulation during the procedure. I have spoken to the surgical instrument technician at the ophthalmologists office. They do not require the anticoagulation to be held. 08/28/2023 Nonrheumatic aortic valve stenosis (ICD-10 - I35.0) Her exercise tolerance is improved and she has no long-term side effects from repair of the aortic valve. He is under the care of the auto tire recapper and compliant with her therapies. 08/28/2023 Chronic congestive heart failure, unspecified heart failure type (ICD-10 - I50.9) Her CHF is now well compensated and she is compliant with her medications. Cardiology follow-up has been arranged. PLAN OF TREATMENT Pending Test Test Name Order Date PROFILE, FASTING (COMPREHENSIVE METABOLI C) 03/13/2017 PROFILE, FASTING (COMPREHENSIVE METABOLI C) 12/12/2016 PROFILE, FASTING (COMPREHENSIVE METABOLI C) 09/09/2023 PROFILE, FASTING (COMPREHENSIVE METABOLI C) 02/06/2023 PROFILE, FASTING (COMPREHENSIVE METABOLI C) 02/02/2022 PROFILE, FASTING (COMPREHENSIVE METABOLI C) 07/17/2017 PROFILE, FASTING (COMPREHENSIVE METABOLI C) 11/19/2022 PROFILE, FASTING (COMPREHENSIVE METABOLI C) 08/20/2018 PROFILE, FASTING (COMPREHENSIVE METABOLI C) 01/15/2019 PROFILE, FASTING (COMPREHENSIVE METABOLI C) 05/27/2018 PROFILE, FASTING (COMPREHENSIVE METABOLI C) 06/05/2021 PROFILE, FASTING (COMPREHENSIVE METABOLI C) 06/10/2023 PROFILE, FASTING (COMPREHENSIVE METABOLI C) 10/28/2019 PROFILE, RANDOM (COMPREHENSIVE METABOLIC ) 11/04/2018 PROFILE, RANDOM (COMPREHENSIVE METABOLIC ) 09/20/2020 PROFILE, RANDOM (COMPREHENSIVE METABOLIC ) 06/02/2020 PROFILE, RANDOM (COMPREHENSIVE METABOLIC ) 12/20/2021 PROFILE, RANDOM (COMPREHENSIVE METABOLIC ) 03/10/2020 PROFILE, RANDOM (COMPREHENSIVE METABOLIC ) 09/22/2020 PROFILE, RANDOM (COMPREHENSIVE METABOLIC ) 07/08/2019 PROFILE, RANDOM (COMPREHENSIVE METABOLIC ) 04/08/2019 AMYLASE 09/22/2020 LIPASE 09/22/2020 LIPID PANEL 04/08/2019 LIPID PANEL 10/28/2019 LIPID PANEL 03/13/2017 LIPID PANEL 12/12/2016 LIPID PANEL 02/06/2023 LIPID PANEL 02/02/2022 LIPID PANEL 07/17/2017 LIPID PANEL 11/19/2022 LIPID PANEL 06/02/2020 LIPID PANEL 03/10/2020 LIPID PANEL 08/20/2018 LIPID PANEL 01/15/2019 LIPID PANEL 05/27/2018 LIPID PANEL 07/08/2019 GGT 09/22/2020 GGT 06/05/2021 GGT 09/20/2020 LDH 06/10/2023 LDH 01/15/2019 LDH 03/13/2017 LDH 02/06/2023 LDH 11/19/2022 LDH 07/17/2017 FREE T4 (FT4) 03/10/2020 FREE T4 (FT4) 08/20/2018 FREE T4 (FT4) 05/27/2018 FREE T4 (FT4) 07/08/2019 FREE T4 (FT4) 04/08/2019 FREE T4 (FT4) 06/10/2023 FREE T4 (FT4) 01/15/2019 FREE T4 (FT4) 06/05/2021 FREE T4 (FT4) 12/12/2016 FREE T4 (FT4) 02/02/2022 FREE T4 (FT4) 02/06/2023 FREE T4 (FT4) 06/02/2020 FREE T4 (FT4) 07/17/2017 TSH (THYROID STIMULATING HORMONE) 2022 TSH (THYROID STIMULATING HORMONE) 2020 TSH (THYROID STIMULATING HORMONE) 2017 TSH (THYROID STIMULATING HORMONE) 2019 TSH (THYROID STIMULATING HORMONE) 2018 TSH (THYROID STIMULATING HORMONE) 2018 TSH (THYROID STIMULATING HORMONE) 2019 TSH (THYROID STIMULATING HORMONE) 2023 TSH (THYROID STIMULATING HORMONE) 2018 TSH (THYROID STIMULATING HORMONE) 2023 TSH (THYROID STIMULATING HORMONE) 2018 TSH (THYROID STIMULATING HORMONE) 2021 TSH (THYROID STIMULATING HORMONE) 2016 TSH (THYROID STIMULATING HORMONE) 2021 FERRITIN 09/20/2020 CEA 06/05/2021 CBC w DIFF 06/05/2021 CBC w DIFF 09/20/2020 CBC w DIFF 02/02/2022 CBC w DIFF 02/06/2023 CBC w DIFF 10/28/2019 CBC w DIFF 11/04/2018 CBC w DIFF 06/02/2020 CBC w DIFF 07/17/2017 CBC w DIFF 03/10/2020 CBC w DIFF 08/20/2018 CBC w DIFF 05/27/2018 CBC w DIFF 07/08/2019 CBC w DIFF 04/08/2019 CBC w DIFF 01/15/2019 CBC w DIFF 03/13/2017 CBC w DIFF 12/20/2021 CBC w DIFF 12/12/2016 CBC w DIFF 11/19/2022 SED RATE (ESR) 11/19/2022 SED RATE (ESR) 02/02/2022 SED RATE (ESR) 09/22/2020 SED RATE (ESR) 02/06/2023 SED RATE (ESR) 10/28/2019 SED RATE (ESR) 09/09/2023 SED RATE (ESR) 07/17/2017 SED RATE (ESR) 07/08/2019 SED RATE (ESR) 03/13/2017 HEPATITIS A,B,C PROFILE 09/20/2020 ALPHA-FETOPROTEIN,TUMOR MARKER CARBOHYDRATE ANTIGEN 19-9 (CA 19-9) 09/2023 CARBOHYDRATE ANTIGEN 19-9 (CA 19-9) 08/2022 CA 27.29 03/13/2017 CA 27.29 11/04/2018 CA 27.29 09/22/2020 CA 27.29 08/20/2018 LYME DISEASE IgG/IgM WB 08/20/2018 CT ABD WITH CONTRAST 12/20/2021 CT ABD WITH CONTRAST 09/26/2022 XR LUMBAR SPINE 09/26/2022 XR PELVIS 09/26/2022 MAMMOGRAM DIGITAL UNILATERAL MANUELITO LT 06/07 VITAMIN D 25-OH TOTAL 02/02/2022 VITAMIN D 25-OH TOTAL 08/20/2018 CBC WITH AUTO DIFF 09/09/2023 CBC WITH AUTO DIFF 06/10/2023 Lipid Panel 06/05/2021 Lipid Panel 06/10/2023 Lipase 06/05/2021 Carbohydrate Antigen 19-9 02/02/2022 Carbohydrate Antigen 19-9 12/20/2021 Next Appt Details Provider Name:Demetrius Cote, 11/25/2023 09:30:00 AM, [address], [place], [address], Insurance Providers Payer Name Payer Address Payer Phone Subscriber Number Group Number Insured Name Patient Relationship to Insured Coverage Start Date Coverage End Date MEDICARE N[place] [address] [place] [phone] [phone] [id number] Kayla Cheung Self - patient is the insured [facility] [address] [place], [place] [phone] [id number] Kayla Cheung Self - patient is the insured MEDICAL (GENERAL) HISTORY Medical History History ICD Code nulliparous psoriasis hodgkins [id number] sjogren's syndrome 2000 insomnia Hypothyroidism DJD of the right knee marginal zone lymphoma 2006 tia 10/2011 bradycardia 10/2011 afib last mammogram @[facility] [place] compression fracture vertebral body T11, T12 [id number] carcinoma of the right breast Fe bruary, 2015 former smoker April 2015 cystic lesion of pancreas cholelithiasis paroxysmal atrial fibrillation pacemaker, high degree AV block Aortic stenosis December 01, 2021, valve are a 0.9 cm2 Aortic regurgitation Tricuspid regurgitation Surgical History Surgery Date(Month/Year) Aorta Catherization 08/2022 endoscopy at [facility] 01/2020 battery replacement in pacemaker 02/2020 Mastectomy right breast 11/08/2014 kyphoplasty 10/2014 pacermaker insertion 10/2011
[2023-11-14 09:24] VITALS: BP 134/72; PULSE 76; RESP 18; O2SAT 95; BMI 26.7
== END 2023-11-14 09:45 | disposition home or self-care (01) ==
LOC: HO.RHE 09:17
PROVIDERS: PCP Internal Medicine Medical Oncology; Visit Provider Student in an Organized Health Care Education/Training Program
DX: M35.01 Sjogren syndrome with keratoconjunctivitis (principal)
CPT/HCPCS: 99214

== ENCOUNTER → 2023-11-14 09:17 | Outpatient (BNVA) | payer MEDICARE, SELFPAY ==
[2023-01-14 15:19] VITALS: BP 130/62; BP 134/66; BP 138/70; BMI 33.3
== END ==
PROVIDERS: PCP Internal Medicine Medical Oncology; Visit Provider Student in an Organized Health Care Education/Training Program
DX: M35.01 Sjogren syndrome with keratoconjunctivitis (principal)
CPT/HCPCS: 99212

== ENCOUNTER 2024-03-23 09:11 | Outpatient (REF) | payer MEDICARE, SELFPAY ==
[2023-01-14 15:19] VITALS: BP 130/62; BP 134/66; BP 138/70; BMI 33.3
[2024-03-23 13:18] LABS: MANUAL DIFF FLAG NO
[2024-03-23 13:31] LABS: Basophils Absolute Auto 0.1 X10*3/uL (0.0-0.2); Basophils Percent Auto 0.6 % (0-2); Eosinophils Absolute Auto 0.4 X10*3/uL (0.0-0.4); Eosinophils Percent Auto 4.9 % (0-4); Hematocrit 34.7 % (37.0-47.0); Hemoglobin 11.1 g/dl (12.0-16.0); Imm Gran Abs Auto 0.04 X10*3/uL (0.00-0.03); Imm Gran Pct Auto 0.5 % (0.0-0.4); Lymphocytes Absolute Auto 0.9 X10*3/uL (1.2-4.9); Lymphocytes Percent Auto 11.3 % (20-40); Mean Corpuscular Hemoglobin 31.5 pg (27.0-33.0); Mean Corpuscular Volume 98.6 fL (80.0-98.0); Mean Platelet Volume 12.3 fL (9.4-12.3); Neutrophils Absolute Auto 5.5 x10*3/uL (2.0-8.3); Neutrophils Percent Auto 69.7 % (45-73); Platelet Count 189 X10*3/uL (160-400); Red Blood Count 3.52 X10*6/uL (4.20-5.50); Red Cell Distribution Width 14.6 % (11.0-16.0)
[2024-03-23 14:09] LABS: Alanine Aminotransferase 12 U/L (0-31); Albumin Level 3.4 g/dL (3.5-5.0); Alkaline Phosphatase 64 U/L (39-117); Anion Gap 10 (12-20); Aspartate Amino Transferase 30 U/L (5-31); Bilirubin Total 0.4 mg/dL (0.0-1.0); Blood Urea Nitrogen 15 mg/dL (9-16); Calcium 9.3 mg/dL (8.4-10.2); Carbon Dioxide 27 mmol/L (22-29); Chloride 107 mmol/L (96-108); Cholesterol 117 mg/dL (<200); Estimated Glomerular Filt Rate 55; Glucose Fasting 97 mg/dL (60-99); HDL Cholesterol 54 mg/dL (>40); LDL Cholesterol Calculated 54 mg/dL (<100); Potassium 4.9 mmol/L (3.3-5.1); Sodium 139 mmol/L (135-145); Triglycerides 45 mg/dL (<150)
[2024-03-24 08:58] LABS: Carbohydrate Antigen 19-9 54 U/mL (<34)
== END 2024-03-23 09:12 | disposition home or self-care (01) ==
LOC: HO.HMGCLDS 09:11
PROVIDERS: PCP Internal Medicine Medical Oncology; Visit Provider Internal Medicine Medical Oncology
DX: C81.90 Hodgkin lymphoma, unspecified, unspecified site (principal); C50.911 Malignant neoplasm of unspecified site of right female breast; E66.9 Obesity, unspecified; C85.80 Other specified types of non-Hodgkin lymphoma, unspecified site; K86.9 Disease of pancreas, unspecified
CPT/HCPCS: 36415; 80053; 80061; 85025; 86301

== ENCOUNTER 2024-04-09 08:55 | Outpatient (REF) | payer MEDICARE, SELFPAY ==
[2023-01-14 15:19] VITALS: BP 130/62; BP 134/66; BP 138/70; BMI 33.3
[2024-04-09 10:14] LABS: MANUAL DIFF FLAG NO
[2024-04-09 10:26] LABS: Basophils Absolute Auto 0.1 X10*3/uL (0.0-0.2); Basophils Percent Auto 1.2 % (0-2); Eosinophils Absolute Auto 0.4 X10*3/uL (0.0-0.4); Eosinophils Percent Auto 7.8 % (0-4); Hematocrit 35.4 % (37.0-47.0); Hemoglobin 11.3 g/dl (12.0-16.0); Imm Gran Abs Auto 0.02 X10*3/uL (0.00-0.03); Imm Gran Pct Auto 0.4 % (0.0-0.4); Lymphocytes Absolute Auto 0.9 X10*3/uL (1.2-4.9); Lymphocytes Percent Auto 16.2 % (20-40); Mean Corpuscular HGB Conc 31.9 g/dl (31.0-35.0); Mean Corpuscular Hemoglobin 31.5 pg (27.0-33.0); Mean Corpuscular Volume 98.6 fL (80.0-98.0); Mean Platelet Volume 11.7 fL (9.4-12.3); Monocytes Percent Auto 17.3 % (2-11); Neutrophils Absolute Auto 3.2 x10*3/uL (2.0-8.3); Neutrophils Percent Auto 57.1 % (45-73); Platelet Count 188 X10*3/uL (160-400); Red Blood Count 3.59 X10*6/uL (4.20-5.50); Red Cell Distribution Width 14.2 % (11.0-16.0); White Blood Count 5.7 X10*3/uL (4.8-10.8)
[2024-04-09 10:39] LABS: Alanine Aminotransferase 14 U/L (0-31); Albumin Level 3.6 g/dL (3.5-5.0); Alkaline Phosphatase 59 U/L (39-117); Anion Gap 10 (12-20); Aspartate Amino Transferase 29 U/L (5-31); Bilirubin Total 0.4 mg/dL (0.0-1.0); Blood Urea Nitrogen 15 mg/dL (9-16); Calcium 9.7 mg/dL (8.4-10.2); Carbon Dioxide 29 mmol/L (22-29); Chloride 107 mmol/L (96-108); Estimated Glomerular Filt Rate 51; Glucose Random 101 mg/dL (60-115); Potassium 4.7 mmol/L (3.3-5.1); Sodium 141 mmol/L (135-145); Total Protein 7.4 g/dL (6.5-8.0)
[2024-04-11 08:44] LABS: Carbohydrate Antigen 19-9 49 U/mL (<34)
== END 2024-04-09 08:56 | disposition home or self-care (01) ==
LOC: HO.HMGCLDS 08:55
PROVIDERS: PCP Internal Medicine Medical Oncology; Visit Provider Internal Medicine Medical Oncology
DX: C81.90 Hodgkin lymphoma, unspecified, unspecified site (principal); C85.80 Other specified types of non-Hodgkin lymphoma, unspecified site; K86.9 Disease of pancreas, unspecified; E66.9 Obesity, unspecified
CPT/HCPCS: 36415; 80053; 85025; 86301

== ENCOUNTER 2024-04-16 14:00 | Outpatient (REF) | payer MEDICARE, SELFPAY ==
[2023-01-14 15:19] VITALS: BP 130/62; BP 134/66; BP 138/70; BMI 33.3
--- NOTE | ~2024-04-16 | CT_ITS ---
EXAMINATION: CT ABDOMEN WITH CONTRAST CLINICAL INFORMATION: Neoplasm of pancreas. COMPARISON: CT abdomen dated October 14, 2019. TECHNIQUE: Contiguous axial thin section helical images of the abdomen were performed following the administration of oral contrast and 85 mL of Omnipaque 350 intravenous contrast. The data set was reformatted in the coronal and sagittal planes and reviewed on an independent workstation. This CT examination was performed using dose optimization techniques as appropriate, variously including the following: *Automated exposure control *Adjustment of mA and/or kV according to patient size (this includes techniques or standardized protocols for targeted exams where dose is matched to indication/reason for exam; i.e. extremities or head) *Use of iterative reconstruction technique DLP: 201 mGy-cm FINDINGS: LUNG BASES: There is a 3 mm groundglass nodule within the right lower lobe seen best on image #3, series #7. There is a 5 mm nodule within the left lower lobe seen best on image #21, series #6. This nodule appears similar to that seen on the October 14, 2019 CT abdomen. LIVER, GALLBLADDER, AND BILIARY TREE: There is a low-attenuation lesion within the right lobe of the liver measuring 3.3 x 2.5 cm in the axial plane. There appears to be peripheral nodular enhancement suggesting that this could be a hemangioma. In retrospect, this lesion was present on the October 14, [address] abdomen. It is poorly defined on this examination due to the lack of intravenous contrast, however. A direct comparison is difficult. The gallbladder is contracted. There is no intrahepatic biliary ductal dilation. PANCREAS: There is a heterogeneous, partially solid, partially cystic lesion involving the head of the pancreas. The lesion measures 2.6 x 1.6 cm in the axial plane. On the prior examination this lesion measured 3.4 x 2.1 cm. There is now diffuse, moderate to severe dilation of the pancreatic duct. There is atrophy of the pancreatic parenchyma. SPLEEN: The spleen is not identified. It has presumably been removed. ADRENAL GLANDS AND KIDNEYS: The adrenal glands are normal in appearance. The right kidney is normal in size and attenuation. There is no right-sided hydronephrosis. There is a stable 2.3 cm lesion within the upper pole of the left kidney. 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 BOWEL LOOPS: The small bowel and colon are normal in caliber. LYMPH NODES: Numerous subcentimeter mesenteric lymph nodes in the upper left abdomen are redemonstrated. VASCULAR: There is no abdominal aortic aneurysm. There is mild calcific atherosclerotic disease throughout the aorta and iliac arteries. BONES: There is severe degenerative disc disease and facet arthropathy at L3-4, similar to slightly worse than on the prior examination. The patient is status post vertebral body augmentation at T11 and T12. There is kyphotic deformity at this level. CT/CT abdomen w IV con IMPRESSION: 1. There is a heterogeneous, partially solid, partially cystic lesion involving the head of the pancreas. The lesion measures 2.6 x 1.6 cm in the axial plane. On the prior examination this lesion measured 3.4 x 2.1 cm. There is now diffuse, moderate to severe dilation of the pancreatic duct. There is atrophy of the pancreatic parenchyma. 2. There is a low-attenuation lesion within the right lobe of the liver measuring 3.3 x 2.5 cm in the axial plane. There appears to be peripheral nodular enhancement suggesting that this could be a hemangioma. In retrospect, this lesion was present on the October 14, [address] abdomen. It is poorly defined on this examination due to the lack of intravenous contrast, however. A direct comparison is difficult. 3. There is a stable 2.3 cm lesion within the upper pole of the left kidney. 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 4. Numerous subcentimeter mesenteric lymph nodes in the upper left abdomen are redemonstrated. 5. There is a 3 mm groundglass nodule within the right lower lobe seen best on image #3, series #7. There is a 5 mm nodule within the left lower lobe seen best on image #21, series #6. This nodule appears similar to that seen on the October 14, 2019 CT abdomen. According to the UPDATED 2017 Fleischner Society recommendations, the advised follow-up imaging for a single subsolid nodule <6 mm is: No routine follow-up is needed. Fleischner guidelines were followed. Electronically signed by: Horace Park DO 04/17/2024 02:50 PM EST
[2024-04-16] MEDS: iohexoL 350 MG/ML 75 ML INFUS..BTL 85 ML IV (15:44)
[2024-04-16] MEDS: Barium Sulfate Oral (Berry) 450 ML ORAL.SUSP PO (15:45)
== END 2024-04-16 14:01 | disposition home or self-care (01) ==
LOC: HO.CT 14:00
PROVIDERS: PCP Internal Medicine Medical Oncology; Visit Provider Internal Medicine Medical Oncology
DX: K86.89 Other specified diseases of pancreas (principal); D49.0 Neoplasm of unspecified behavior of digestive system
CPT/HCPCS: 74160; Q9967

== ENCOUNTER 2024-05-19 09:42 | Outpatient (AMB) | payer MEDICARE, SELFPAY ==
[2023-01-14 15:19] VITALS: BP 130/62; BP 134/66; BP 138/70; BMI 33.3
[2024-05-19 10:53] VITALS: BP 126/66; PULSE 89; TEMP 36.8; O2SAT 97; BMI 26.0
--- NOTE | 2024-05-19 10:53 | AM.OFFWIN_ITS ---
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 Pt c/o sinus pain and pressure. congestion since the weekend. Patient Tobacco Use Status: Former Tobacco user Allergies amoxicillin [AMOXICILLIN] Allergy (Mild, Verified 05/19/24 10:56) hives, anaphylaxis, hives Penicillins [PENICILLINS] Allergy (Mild, Verified 05/19/24 10:56) hives Sulfa (Sulfonamide Antibiotics) [SULFA (SULFONAMIDE ANTIBIOTICS)] Allergy (Mild, Verified 05/19/24 10:56) HIVES HPI HPI Comments History of Present Illness Details This is a 78-year-old female with a past medical history of hypothyroidism, CAD s/p stent placement and pacemaker placement currently maintained on Eliquis, unilateral breast cancer managed surgically and splenectomy secondary to non-Hodgkin's lymphoma presenting for evaluation of sinus pressure and cough that has been ongoing for the past 2 weeks. Patient comes to the clinic today because her symptoms significantly worsened over the weekend. Patient denies having any fevers, chills, otalgia or shortness for breath however states that she feels increasingly fatigued with worsening sinus pressure. FOR[facility]LY [facility], LATER [facility] Medical History Sjogren's syndrome with keratoconjunctivitis sicca Surgical History S/P TAVR (transcatheter aortic valve replacement) History of cardiac catheterization Social History Household Members: Spouse Household Members Other:: Daughter Housing: House Alcohol intake: current Alcohol intake frequency: holidays/special occasions only Patient Tobacco Use Status: Former Tobacco user Cigarette Packs Per Day: 0.25 Years Smoked: 1 e-Cigarette/Vaping Use: Never Used service: No Review of Systems Const All systems reviewed & are unremarkable except as noted in HPI and below Denies chills, Reports fatigue, Denies fever(s) and Reports malaise Eyes Reports as per HPI ENT Reports as per HPI, Denies otalgia, Reports nasal congestion, Reports sinus pressure, Reports sore throat and Denies throat swelling Card Reports no additional complaints, Denies chest pain and Denies dyspnea Resp Reports cough, Denies dyspnea and Denies wheezing GI Reports no additional complaints Reports no additional complaints Musc Reports no additional complaints Skin/Breast Reports system reviewed and no additional complaints, except as documented Neuro Reports no additional complaints Psych Reports no additional complaints Endo Reports no additional complaints and Reports fatigue Aller/Immun Reports no additional complaints, Denies throat swelling and Denies wheezing Physical Exam Vital Signs: Last Vital Signs Temp 98.2 F 05/19/24 10:53 Pulse 89 05/19/24 10:53 BP 126/66 05/19/24 10:53 Pulse Ox 97 05/19/24 10:53 Oxygen Delivery Method Room Air 05/19/24 10:53 BMI result Body Mass Index 26.0 Const General: cooperative, comfortable, no acute distress, alert, awake, Physically active and tired appearing Nutritional Appearance: average body habitus Orientation/consciousness: patient oriented x3 Limitations: no limitations HEENT Head: Yes normal to inspection and Yes normocephalic Ears: hearing grossly normal bilaterally, external ears normal, TM normal on the right, left TM abnormal (bulging, mild erythema) and EAC's normal General nose exam: Normal external nose present Face and sinus: Yes normal facial exam, Yes sinus tenderness and Yes dry mucous membranes Mouth: Normal oral and palatal mucosa present and mucous membranes dry (Dry mucous membranes) Throat: Yes posterior oropharynx normal and Yes postnasal drainage Eyes General: appearance normal, both eyes and all related structures Neck Lymphatic: no lymphadenopathy noted Resp Effort & Inspection: normal respiratory effort, able to speak in complete sentences, abnormal respiratory pattern, no audible wheezes, no cough, decreased respiratory effort and no respiratory distress Auscultation: clear to auscultation bilaterally Cardio Rate: regular rate Rhythm: regular rhythm Skin General skin exam: no rashes or lesions noted Neuro General: patient oriented x3 Psych Appearance: grossly normal Mental Status: mental status grossly normal Insight: Good insight present (Psych) Judgement: Good judgement present (Psych) Assessment & Plan Assessment & Plan (1) Bacterial sinusitis: Comment: Given this patient's worsening symptomology coupled with her splenectomy, patient will be treated with antibiotic therapy. Code(s): Haydee32.9 - Chronic sinusitis, unspecified; B96.89 - Other specified bacterial agents as the cause of diseases classified elsewhere Plan: Doxycycline b.i.d. x7 days, discussed taking Mucinex OTC as needed with increased clear fluids daily. Medications: New doxycycline hyclate 100 mg PO BID 14 caps 0RF Coding Level of Care Code New Pt Level 4 (31458) Diagnoses Bacterial sinusitis J32.9; B96.89 Time Spent (min) 20
== END 2024-05-19 11:26 | disposition home or self-care (01) ==
PROVIDERS: PCP Internal Medicine Medical Oncology; Visit Provider Physician Assistant
DX: J32.9 Chronic sinusitis, unspecified (principal); B96.89 Other specified bacterial agents as the cause of diseases classified elsewhere

== ENCOUNTER → 2024-05-19 09:42 | Outpatient (BNVA) | payer MEDICARE, SELFPAY ==
[2023-01-14 15:19] VITALS: BP 130/62; BP 134/66; BP 138/70; BMI 33.3
== END ==
PROVIDERS: PCP Internal Medicine Medical Oncology; Visit Provider Physician Assistant
DX: E03.9 Hypothyroidism, unspecified (principal); J32.9 Chronic sinusitis, unspecified; B96.89 Other specified bacterial agents as the cause of diseases classified elsewhere; Z95.0 Presence of cardiac pacemaker; Z79.01 Long term (current) use of anticoagulants
CPT/HCPCS: 99202

== ENCOUNTER 2024-06-24 07:34 | Emergency (ER) | payer MEDICARE, SELFPAY ==
[2023-01-14 15:19] VITALS: BP 130/62; BP 134/66; BP 138/70; BMI 33.3
--- NOTE | ~2024-06-24 | XR_ITS ---
EXAMINATION: XR LUMBOSACRAL SPINE CLINICAL INFORMATION: pain x 1 month COMPARISON: 10/17/2022. TECHNIQUE: Three views of the lumbosacral spine. FINDINGS: There is mild to moderate levoconvex scoliosis, apex at L3. There is a normal lordosis. Superior endplate 30% compression fracture of L2, new from prior, appears possibly subacute. Chronic T11 and T12 compression fractures with vertebroplasty cement. No additional fracture or suspicious bone lesion. There is a 3 mm degenerative appearing retrolisthesis of L2 on L3 and anterolisthesis of L3 on L4. Severe disc degeneration L3-4. There is otherwise mild to moderate disc degeneration. Facet degeneration most significant spanning L3-S1. XR/XR lumbar spine 2-3V IMPRESSION: 1. Superior endplate 30% compression fracture of L2, new from prior, appears possibly subacute. 2. Chronic T11 and T12 compression fractures with vertebroplasty cement. 3. Mild to moderate levoconvex scoliosis and multilevel advanced spondylosis, most significant at L3-4. Electronically signed by: Tristin Posadas MD 06/24/2024 09:28 AM SAL
--- NOTE | ~2024-06-24 | XR_ITS ---
EXAMINATION: XR SACRUM AND COCCYX CLINICAL INFORMATION: pain x 1 month COMPARISON: None available. TECHNIQUE: 2 views of the sacrum and 2 views of the coccyx were obtained. FINDINGS: There are no fractures. No focal bone lesion. There are mild degenerative changes in both SI joints. Imaging of the coccyx is unreliable due to a large degree of anatomic variability in this region. XR/XR sacrum coccyx min 2V IMPRESSION: Normal sacrum and coccyx. Mild arthritis in both SI joints. Electronically signed by: Tristin Posadas MD 06/24/2024 09:22 AM [facility]
[2024-06-24 07:48] VITALS: BP 107/56; PULSE 74; RESP 16; TEMP 36; O2SAT 97; BMI 28.3
--- NOTE | 2024-06-24 14:17 | ED.BACK ---
HPI - Back Pain/Injury General Chief Complaint: Back Pain/Injury Stated Complaint: Back pain Time Seen by Provider: 06/24/24 14:03 Source: patient and old records reviewed Mode of arrival: ambulatory Limitations: no limitations History of Present Illness ED Provider: CHANA URRUTIA Narrative: 79 yo female s/p TAVR bioprosthetic, PPM, sjogren's syndrome, afib on eliquis, breast cancer s/p therapy and treatment who has had nontraumatic back pain she denies b/b incontinence, saddle anesthesia, fevers. She notes nothing helps. She is newly on gabapentin but no improvement - she is waiting on xrays and MRI with [facility]. She notes she ahs had kyphoplasty in the past with Dr. Perez that has helped in the past. MD elicited complaint: back pain Pertinent past history: prior back pain Onset (ago): month(s) (1+) Timing: constant Severity: moderate Similar Symptoms Previously: Yes Quality: crushing and aching Location: lumbar spine Radiation: none Exacerbating factors: movement Relieving factors: none Context: other Associated symptoms: denies other symptoms Treatments prior to arrival: other medications and prescription analgesics Work related injury: No Related Data Home Medications ?Medication ?Instructions ?Recorded ?Confirmed apixaban 5 mg tablet (Eliquis) 5 mg PO BID 08/24/20 07/23/23 cholecalciferol (vitamin D3) 25 25 mcg PO DAILY 08/24/20 07/23/23 mcg (1,000 unit) capsule levothyroxine 100 mcg capsule 100 mcg PO DAILY 08/24/20 07/23/23 simvastatin 40 mg tablet 40 mg PO BEDTIME 08/24/20 07/23/23 calcium carbonate 600 mg PO BID 11/27/21 07/23/23 ferrous sulfate 325 mg (65 mg 325 mg PO DAILY 11/27/21 07/23/23 iron) tablet alendronate 70 mg tablet 70 mg PO MOREIRA 11/13/22 07/23/23 aspirin 81 mg tablet,delayed 81 mg PO DAILY 11/13/22 07/23/23 release fluorometholone 0.1 % eye 1 drp ophthalmic (eye) Q48H 11/13/22 07/23/23 drops,suspension metoprolol tartrate 25 mg tablet 25 mg PO BID 07/23/23 07/23/23 peg 400-propylene glycol (PF) 0.4 1 drp ophthalmic (eye) 5XD PRN Dry 07/23/23 07/23/23 %-0.3 % eye drops in a dropperette Eyes (Systane (PF)) trazodone 150 mg tablet 150 mg PO BEDTIME Insomnia 07/23/23 07/23/23 Previous Rx's ?Medication ?Instructions ?Recorded furosemide 20 mg tablet (Lasix) 20 mg PO Q OTHER DAY #60 tabs 07/27/23 doxycycline hyclate 100 mg capsule 100 mg PO BID #14 caps 05/19/24 morphine 15 mg immediate release 7.5 mg (1/2 x 15 mg) PO Q6H PRN 06/24/24 tablet pain #6 tabs Allergies Allergy/AdvReac Type Severity Reaction Status Date / Time amoxicillin [AMOXICILLIN] Allergy Mild hives, Verified 06/24/24 07:53 anaphylaxis, hives Penicillins [PENICILLINS] Allergy Mild hives Verified 06/24/24 07:53 Sulfa (Sulfonamide Allergy Mild HIVES Verified 06/24/24 07:53 Antibiotics) [SULFA (SULFONAMIDE ANTIBIOTICS)] Review of Systems Review of Systems: Constitutional : No Weight loss, No Fever, No Chills, ENT/Mouth : No Hearing loss, No Ear Pain, No Nasal Congestion, No Sinus Pain, No Hoarseness, No sore throat, No Rhinorrhea, No Swallowing Difficulty Cardiovascular : No Chest Pain, No SOB Respiratory : No Cough, No Dyspnea Gastrointestinal : No Nausea, No Vomiting, No Diarrhea, No abdominal Pain, No Hematochezia, No Melena Genitourinary : No Dysuria, No Urinary Frequency, No Hematuria, No Urinary Incontinence, Musculoskeletal : positive back pain Skin : No Skin Lesions, No rash Neuro : No Weakness, No Numbness, No Paresthesias, no loss of bowel or bladder incontinence, no saddle anesthesia all other systems reviewed and are negative [facility] Past Medical History Attestation statement: The following information was validated with the patient. Source: old records reviewed Medical History History of breast cancer History of non-Hodgkin's lymphoma Anemia UTI (urinary tract infection) PAF (paroxysmal atrial fibrillation) Sjogren's syndrome with keratoconjunctivitis sicca Surgical History S/P TAVR (transcatheter aortic valve replacement) History of cardiac catheterization Social History Social History Household Members: Spouse Household Members Other:: Daughter Housing: House Alcohol intake: current Alcohol intake frequency: holidays/special occasions only Patient Tobacco Use Status: Former Tobacco user Cigarette Packs Per Day: 0.25 Years Smoked: 1 e-Cigarette/Vaping Use: Never Used Advance Directives: No Advance Directives Information Provided: Yes service: No Physical Exam Vital Signs: Vital Signs: Last Vital Signs Temp 96.8 F 06/24/24 07:48 Pulse 74 06/24/24 07:48 Resp 16 06/24/24 07:48 BP 107/56 L 06/24/24 07:48 Pulse Ox 97 06/24/24 07:48 O2 Del Method Room Air 06/24/24 07:48 BMI result Body Mass Index 28.3 Appearance: Alert. Oriented X3. No acute distress. Eyes: Pupils equal, round and reactive to light. ENT: Pharynx normal. Neck: Normal inspection. Neck supple. CVS: Normal heart rate and rhythm. Pulses normal. Respiratory: No respiratory distress. Breath sounds normal. Abdomen: Soft and nontender. Back: ttp along lower lumbar spine midline Skin: Skin warm and dry. Normal skin color. Normal skin turgor. Extremities: No lower extremity edema. No calf ttp Neuro: Oriented X 3. No motor deficit. No sensory deficit. CN2-12 intact 2+ DTR in patella, silt inner thigh Medical Decision Making Medical Decision Making MDM Narrative: 79 yo female s/p TAVR bioprosthetic, PPM, sjogren's syndrome, afib on eliquis, breast cancer s/p therapy and treatment here with worsening back pain atraumatic and she has no neuro symptoms - she is NV intact and has no cauda equina symptoms at this time will obtain xray for fracture. Will offer short course analgesia. discussed case with Dr. Cote and IR hold eliquis and start on low dose morphine. Plan to get kyphoplasty as outpatient. Last dose eliquis this AM 06/24/24 Differential Diagnosis Differential Diagnoses: The differential diagnosis associated with the presentation includes compression fracture, strain, chronic back pain Admission/Observation Consideration of admission/observation: Escalation of care including admission/observation considered cauda equina negative stable for DC Consult Healthcare Provider Management of the patient was discussed with: Entry Level Marketing Representative (Dr. Cote aware will follow - sarwat montanez) I also spoke to IR office machine service supervisor they will get patient in for procedure Independent Interpretation I performed an independent interpretation of an: Plain X-Ray (L2 compression fracture) Radiology Impression Discussion of test interpretation with radiology: I have reviewed the radiologist's reading. Independent Historian Clinical information obtained from an independent historian. History obtained from or confirmed by: Spouse External Record Review External record reviewed: Inpatient record and Outpatient record Discharge Plan Discharge Clinical Impression: Closed compression fracture of lumbar vertebra Patient Disposition: Home, Self-Care Instructions: Vertebral Compression Fracture (ED) Additional Instructions: STOP tarik Cote is going to schedule a kyphoplasty to follow up with return for numbness, weakness, loss of control of bowel or bladder or any other concerns Prescriptions: New morphine 15 mg tablet 7.5 mg PO Q6H PRN (Reason: pain) Qty: 6 0RF Rx Instructions: Partial Fill upon patient request. No Action metoprolol tartrate 25 mg Tablet 25 mg PO BID Systane (PF) 0.4-0.3 % Dropperette 1 drp OPHTHALMIC (EYE) 5XD PRN (Reason: Dry Eyes) trazodone 150 mg tablet 150 mg PO BEDTIME furosemide [Lasix] 20 mg tablet 20 mg PO Q OTHER DAY Qty: 60 0RF cholecalciferol (vitamin D3) 25 mcg (1,000 unit) capsule 25 mcg PO DAILY Eliquis 5 mg tablet 5 mg PO BID levothyroxine 100 mcg capsule 100 mcg PO DAILY simvastatin 40 mg tablet 40 mg PO BEDTIME calcium carbonate 600 mg calcium (1,500 mg) tablet 600 mg PO BID ferrous sulfate 325 mg (65 mg iron) tablet 325 mg PO DAILY aspirin 81 mg tablet,delayed release (DR/EC) 81 mg PO DAILY fluorometholone 0.1 % drops,suspension 1 drp ophthalmic (eye) Q48H alendronate 70 mg tablet 70 mg PO MOREIRA doxycycline hyclate 100 mg capsule 100 mg PO BID Qty: 14 0RF Print Language: Dutch
--- OUTSIDE RECORDS SUMMARY | 2024-06-24 14:26 | XMS_ITS ---
Author Organization Demetrius Cote III, MD Address [address] [place] [address] [place] [address] Care Team Providers Care Wind Tunnel Mechanic Name Role Phone Demetrius Cote Primary Care Provider REASON FOR VISIT Needs call back from Social History Sex Assigned At : Social History Observation Description Sex Assigned At Female Encounters Encounter Location Date Provider Diagnosis Demetrius Cote III, MD [address] [place] [address] [address] [place] [place] [address] 06/23/2024 Demetrius Cote Plan Of Treatment Next Appt Details Provider Name:Demetrius Cote, 11/26/2024 09:30:00 AM, [address] [place] [address] [place], [address], Progress Notes * Kayla CHEUNGDOB:[birth year] (79 yo F)Acc No.[id number]:06/23/2024 Patient:?Kayla CHEUNG :1945???Age:79 Y???Sex:Female Address:[address] [place], [place] [address] [address] * * Date:?
--- OUTSIDE RECORDS SUMMARY | 2024-06-24 14:26 | XMS_ITS ---
Author Organization Demetrius Cote III, MD Address [address] [place] [address] Care Team Providers Care National Dedicated Truck Driver Name Role Phone Demetrius Cote Primary Care Provider Reason For Referral Reason Evaluate and Treat Diagnosis 1 Wedge compression fr acture of T11 vertebra (S22.080A) Diagnosis 2 Low back pain, unspe cified back pain laterality, unspecified chronicity, with sciatica presence unspecified (M54.5) Diagnosis 3 Acute midline thorac ic back pain (M54.6) Diagnosis 4 Lumbar back pain (M5 4.50) Referral Organization Demetrius Cote III, MD Referring Provider First Name Demetrius Referring Provider Last Name Kera Referring Provider Speciality Internal M edicine [facility] Specialty Unknown General Notes DShana 06/08/2024 01:34:22 PM > referral faxed Referral Priority Routine REASON FOR VISIT Message/ Referral Request Social History Sex Assigned At : Social History Observation Description Sex Assigned At Female Encounters Encounter Location Date Provider Diagnosis Demetrius Cote III, MD [address] [place] [address] [place] [address] 06/08/2024 Demetrius Cote Plan Of Treatment Referrals Referral Date Details 06/08/2024 06/08/2024, Evaluate and Treat, [facility] Next Appt Details Provider Name:Demetrius Cote, 11/26/2024 09:30:00 AM, [address] [place] [address] [place], [address], Progress Notes * Kayla CHEUNGDOB:[birth year] (78 yo F)Acc No.[id number]:06/08/2024 Patient:?Kayla CHEUNG :1945???Age:78 Y???Sex:Female Address:[address] [place] [id number] Subjective: * Chief Complaints: * ???Message/ Referral Request * Medical History:? * Surgical History:? * Hospitalization/Major Diagno stic Procedure:? * Medications:? Objective: * Vitals:? * Physical Examination:? Assessment: Plan: * Treatment: * Procedure Codes:? * true * Date:? Generated for Yoan moise/Kris/Chrisitting on:?06/24/2024 02:26 PM EST Consultation Request Notes Referral Date Referring Provider Referred Provider Not galen 06/08/2024 Demetrius Cote [facility], [place] Evaluate and Treat
--- OUTSIDE RECORDS SUMMARY | 2024-06-24 14:26 | XMS_ITS ---
Author Organization Demetrius Cote III, MD Address [address] [place] [address] Care Team Providers Care Tea And Spice Supervisor Name Role Phone Demetrius Cote Primary Care Provider Medications Medication SIG (Take, Route, Fr equency, Duration) Notes Start Date End Date Status Gabapentin 300 MG 1 capsule Orally thr ee times a day for 10 days 06/23/2024 Active dexAMETHasone 2 MG 1 tablet Orally twic e a day for 10 days 06/23/2024 Active Social History Sex Assigned At : Social History Observation Description Sex Assigned At Female Encounters Encounter Location Date Provider Diagnosis Demetrius Cote III, MD [address] [place] [address] [place] [address] 06/23/2024 Demetrius Cote Plan Of Treatment Medication Medication Name Sig Start Date Stop Date Notes Gabapentin 300 MG 1 capsule Orally thr ee times a day for 10 days 06/23/2024 dexAMETHasone 2 MG 1 tablet Orally twice a day for 10 days 06/23/2024 Next Appt Details Provider Name:Demetrius Cote, 11/26/2024 09:30:00 AM, [address] [place] [address] [place], [address], Progress Notes * Kayla CHEUNGDOB:[birth year] (79 yo F)Acc No.[id number]:06/23/2024 Patient:MicaelaMAMIELigiaKayla :1945???Age:79 Y???Sex:Female Address:[address] [place] [address], [place] [address] * Refills? Start Gabapentin Capsule, 300 MG, Orally, 30 Capsule, 1 capsule, three times a day, 10 days, Refills=3 Start dexAMETHasone Tablet, 2 MG, Orally, 20 Tablet, 1 tablet, twice a day, 10 days, Refills=1 * true * Date:? Generated for Yoan moise/Kris/Willy on:?06/24/2024 02:26 PM EST
[2024-06-24] MEDS: Morphine Sulfate Immed Release 15 MG TABLET 7.5 MG PO (14:55)
[2024-06-24 14:56] VITALS: BP 107/56; PULSE 74; RESP 16; TEMP 36; O2SAT 97
== END 2024-06-24 14:57 | disposition home or self-care (01) ==
PROVIDERS: Emergency Provider Emergency Medicine; PCP Internal Medicine Medical Oncology
DX: M48.56XA Collapsed vertebra, not elsewhere classified, lumbar region, initial encounter for fracture (principal); I48.0 Paroxysmal atrial fibrillation; M35.00 Sjogren syndrome, unspecified; Z87.891 Personal history of nicotine dependence; Z79.01 Long term (current) use of anticoagulants; Z79.02 Long term (current) use of antithrombotics/antiplatelets; Z79.82 Long term (current) use of aspirin; Z79.899 Other long term (current) drug therapy
CPT/HCPCS: 72100; 72220; 99283

== ENCOUNTER → 2024-06-24 09:04 | Outpatient (BNV) | payer MEDICARE, SELFPAY ==
[2023-01-14 15:19] VITALS: BP 130/62; BP 134/66; BP 138/70; BMI 33.3
== END ==
PROVIDERS: PCP Internal Medicine Medical Oncology; Visit Provider Radiology Diagnostic Radiology
DX: M54.50 Low back pain, unspecified (principal)
CPT/HCPCS: 72100; 72220

== ENCOUNTER 2024-07-07 12:51 | Outpatient (REF) | payer MEDICARE, SELFPAY ==
[2023-01-14 15:19] VITALS: BP 130/62; BP 134/66; BP 138/70; BMI 33.3
--- OUTSIDE RECORDS SUMMARY | 2024-07-07 15:53 | XMS_ITS ---
Author Organization Demetrius Cote III, MD Address [address] [place] [address] [place] [address] Care Team Providers Care Window Dresser Name Role Phone Demetrius Cote Primary Care Provider [phone] Medications Medication SIG (Take, Route, Frequency, Duration) Notes Start Date End Date Status Morphine Sulfate 15 MG 1 tablet Orally every 6 hrs for 7 days Partial Fill upon Patient Request 07/02/2024 07/09/2024 Active Social History Sex Assigned At : Social History Observation Description Sex Assigned At Female Encounters Encounter Location Date Provider Diagnosis Demetrius Cote III, MD [address] [place] [address] [address] [facility] [place] [address] 07/02/2024 Demetrius Cote Plan Of Treatment Medication Medication Name Sig Start Date Stop Date Notes Morphine Sulfate 15 MG 1 tablet Orally every 6 hrs for 7 days 07/02/2024 07/09/2024 Partial Fill upon Patient Request Next Appt Details Provider Name:Demetrius Cote, 11/26/2024 09:30:00 AM, [address] [place] [address] [place], [address], Progress Notes * Kayla CHEUNGDOB:[birth year] (79 yo F)Acc No.[id number]:07/02/2024 Patient:?MAMIELigiaKayla :1945???Age:79 Y???Sex:Female Address:[address] [place] [address] [place] [address] * Refills? Start Morphine Sulfate Tablet, 15 MG, Orally, 28 Tablet, 1 tablet, every 6 hrs, 7 days, Refills=0 * true * Date:? Generated for Yoan moise/Kris/Willy on:?07/07/2024 03:53 PM EST
--- OUTSIDE RECORDS SUMMARY | 2024-07-07 15:53 | XMS_ITS ---
Author Organization Demetrius Cote III, MD Address [address] [place] [address] [place] [address] Care Team Providers Care Roof Fitter Name Role Phone Demetrius Cote Primary Care Provider [phone] REASON FOR VISIT Message Social History Sex Assigned At : Social History Observation Description Sex Assigned At Female Encounters Encounter Location Date Provider Diagnosis Demetrius Cote III, MD [address] [place] [address] [place] [address] 07/07/2024 Demetrius Cote Compression fracture of L2 vertebra, initial encounter S32.020A Assessments Encounter Date Diagnosis (ICD Code) Assessment Notes Treat ment Notes Treatment Clinical Notes 07/07/2024 Compression fracture of L2 vertebra, initial encounter (ICD-10 - S32.020A) Plan Of Treatment Pending Test Test Name Order Date NM bone scan limited area 07/07/2024 Next Appt Details Provider Name:Demetrius Cote, 11/26/2024 09:30:00 AM, [address] [place] [address] [place], [address], Progress Notes * Kayla CHEUNGDOB:[birth year] (79 yo F)Acc No.[id number]:07/07/2024 Patient:?MAMIELigiaKayla :1945???Age:79 Y???Sex:Female Address:[address] [place] [address] Subjective: * Chief Complaints: * ???Message * Medical History:? * Surgical History:? * Hospitalization/Major Diagno stic Procedure:? * Medications:? Objective: * Vitals:? * Physical Examination:? Assessment: * Assessment: 1.?Compression fracture of L 2 vertebra, initial encounter - S32.020A??? Plan: * Treatment: * Procedure Codes:? * * Date:?
--- OUTSIDE RECORDS SUMMARY | 2024-07-07 15:54 | XMS_ITS ---
Author Organization Demetrius Cote III, MD Address [address] [place] [address] [place] [address] Care Team Providers Care Industrial Green Systems Designer Name Role Phone Demetrius Cote Primary Care Provider REASON FOR VISIT Pain Meds / Dr. Ridley Appt Social History Sex Assigned At : Social History Observation Description Sex Assigned At Female Encounters Encounter Location Date Provider Diagnosis Demetrius Cote III, MD [address] [place] [address] [place] [address] 07/03/2024 Demetrius Cote Plan Of Treatment Next Appt Details Provider Name:Demetrius Cote, 11/26/2024 09:30:00 AM, [address] [place] [address] [place], [address], Progress Notes * Kayla CHEUNGDOB:[birth year] (79 yo F)Acc No.[id number]:07/03/2024 Patient:?Kayla CHEUNG :1945???Age:79 Y???Sex:Female Address:[address] [place] [address] * true * Date:? Generated for Printi ng/Familagrog/eTransmitting on:?07/07/2024 03:53 PM EST
== END 2024-07-07 12:52 | disposition home or self-care (01) ==
LOC: HO.XRAY 12:51
PROVIDERS: Visit Provider Internal Medicine Medical Oncology
DX: Z13.89 Encounter for screening for other disorder (principal)

== ENCOUNTER → 2024-07-09 09:56 | Outpatient (REF) | payer MEDICARE, SELFPAY ==
[2023-01-14 15:19] VITALS: BP 130/62; BP 134/66; BP 138/70; BMI 33.3
--- NOTE | ~2024-07-09 | NM_ITS ---
EXAMINATION: BONE SCAN OF THE SPINE, LIMITED CLINICAL INFORMATION: Low back and sacral pain. L2 compression fracture. COMPARISON: Lumbar spine 06/24/2024 TECHNIQUE: Multiple gamma scintillation camera images of the entire spine and pelvis were performed 3 hours following the intravenous administration of 30 mCi Tc-99m MDP. FINDINGS: There is moderate to intense activity seen in L2 vertebra consistent with acute compression fracture. There is mild bilateral pedicle activity seen L1 vertebra from old surgical changes/kyphoplasty. There are no additional areas of abnormal activity seen. Especially no activity seen in the sacrum, SI joints or the pelvis. There is mild scoliosis of thoracolumbar spine. The soft tissues are normal. NM/NM bone scan limited area IMPRESSION: Focal increased activity L2 vertebra consistent with acute compression fracture. There is no suspicion of additional fractures or sacral insufficiency fracture. Electronically signed by: Idris Perez MD 07/09/2024 02:53 PM SAL
--- OUTSIDE RECORDS SUMMARY | 2024-07-09 11:34 | XMS_ITS ---
Author Organization Demetrius Cote III, MD Address [address] [place] [address] [place] [address] Care Team Providers Care Mechanical Detailer Name Role Phone Demetrius Cote Primary Care Provider REASON FOR VISIT Pain Meds / Dr. Ridley Appt Social History Sex Assigned At : Social History Observation Description Sex Assigned At Female Encounters Encounter Location Date Provider Diagnosis Demetrius Cote III, MD [address] [place] [address] [place] [address] 07/03/2024 Demetrius Cote Plan Of Treatment Next Appt Details Provider Name:Demetrius Cote, 11/26/2024 09:30:00 AM, [address] [place] [address] [place], [address], Progress Notes * Kayla CHE[birth year]GDOB:[birth year] (79 yo F)Acc No.[id number]:07/03/2024 Patient:?Kayla CHEUNG :1945???Age:79 Y???Sex:Female Address:[address] [place] [address] * true * Date:? Generated for Printi ng/Faxing/eTransmitting on:?07/09/2024 11:34 AM EST
--- OUTSIDE RECORDS SUMMARY | 2024-07-09 11:34 | XMS_ITS ---
Author Organization Demetrius Cote III, MD Address [address] [place] [address] [place] [address] Care Team Providers Care Deportation Officer Name Role Phone Demetrius Cote Primary Care Provider [phone] REASON FOR VISIT Message Social History Sex Assigned At : Social History Observation Description Sex Assigned At Female Encounters Encounter Location Date Provider Diagnosis Demetrius Cote III, MD [address] [place] [address] [place] [address] 07/07/2024 Demetrius Cote Compression fracture of L2 vertebra, initial encounter S32.020A Assessments Encounter Date Diagnosis (ICD Code) Assessment Notes Treat ment Notes Treatment Clinical Notes 07/07/2024 Compression fracture of L2 vertebra, initial encounter (ICD-10 - S32.020A) Plan Of Treatment Pending Test Test Name Order Date NM bone scan limited area 07/07/2024 Next Appt Details Provider Name:Demetrius Cote, 11/26/2024 09:30:00 AM, [address] [place] [address] [place], [address], Progress Notes * Kayla CHEUNGDOB:[birth year] (79 yo F)Acc No.[id number]:07/07/2024 Patient:?MAMIELigiaKayla :1945???Age:79 Y???Sex:Female Address:[address] [place] [phone] Subjective: * Chief Complaints: * ???Message * Medical History:? * Surgical History:? * Hospitalization/Major Diagno stic Procedure:? * Medications:? Objective: * Vitals:? * Physical Examination:? Assessment: * Assessment: 1.?Compression fracture of L 2 vertebra, initial encounter - S32.020A??? Plan: * Treatment: * Procedure Codes:? * true * Date:? Generated for Yoan moise/Kris/Chrisitting on:?07/09/2024 11:33 AM EST
== END ==
LOC: HO.NUCMED 09:56
PROVIDERS: PCP Internal Medicine Medical Oncology; Visit Provider Internal Medicine Medical Oncology
DX: S32.020A Wedge compression fracture of second lumbar vertebra, initial encounter for closed fracture (principal)
CPT/HCPCS: 78300; A9503

== ENCOUNTER → 2024-07-09 10:15 | Outpatient (BNV) | payer MEDICARE, SELFPAY ==
[2023-01-14 15:19] VITALS: BP 130/62; BP 134/66; BP 138/70; BMI 33.3
== END ==
PROVIDERS: PCP Internal Medicine Medical Oncology; Visit Provider Radiology Diagnostic Radiology
DX: S32.020A Wedge compression fracture of second lumbar vertebra, initial encounter for closed fracture (principal)
CPT/HCPCS: 78300

== ENCOUNTER 2024-07-20 11:47 | Day surgery (SDC) | payer MEDICARE, SELFPAY ==
[2023-01-14 15:19] VITALS: BP 130/62; BP 134/66; BP 138/70; BMI 33.3
--- OUTSIDE RECORDS SUMMARY | 2024-07-10 06:47 | XMS_ITS ---
Author Organization Demetrius Cote III, MD Address [address] [place] [address] [place] [address] Care Team Providers Care Crane Engineer Name Role Phone Demetrius Cote Primary Care Provider [phone] Medications Medication SIG (Take, Route, Frequency, Duration) Notes Start Date End Date Status Morphine Sulfate 15 MG 1 tablet Orally every 6 hrs for 7 days Partial Fill upon Patient Request 07/02/2024 07/09/2024 Active Social History Sex Assigned At : Social History Observation Description Sex Assigned At Female Encounters Encounter Location Date Provider Diagnosis Demetrius Cote III, MD [address] [place] [address] [address] [place] [address] 07/02/2024 Demetrius Cote Plan Of Treatment Medication Medication Name Sig Start Date Stop Date Notes Morphine Sulfate 15 MG 1 tablet Orally every 6 hrs for 7 days 07/02/2024 07/09/2024 Partial Fill upon Patient Request Next Appt Details Provider Name:Demetrius Cote, 11/26/2024 09:30:00 AM, [address] [place] [address] [place], [address], Progress Notes * Kayla CHEUNGDOB:[birth year] (79 yo F)Acc No.[id number]:07/02/2024 Patient:?MAMIELigiaKayla :1945???Age:79 Y???Sex:Female Address:[address] [place] [address] [place] [address] * Refills? Start Morphine Sulfate Tablet, 15 MG, Orally, 28 Tablet, 1 tablet, every 6 hrs, 7 days, Refills=0 * true * Date:? Generated for Yoan moise/Kris/Willy on:?07/10/2024 06:47 AM EST
--- OUTSIDE RECORDS SUMMARY | 2024-07-10 06:47 | XMS_ITS ---
Author Organization Demetrius Cote III, MD Address [address] [place] [address] Care Team Providers Care Helpdesk Administrator Name Role Phone Demetrius Cote Primary Care Provider [phone] Results Component Value Reference Range Notes NM bone scan limited area Reviewed date:07/09/2024 08:39:37 PM Interpretation: Performing Lab: Notes/Report: [facility] [address] [place] [id number] Nuclear Medicine Report Signed Patient: Kayla Cheung MR#: [id number] : 1945 Acct:[id number] Age/Sex: 79 / F ADM Date: 07/09/24 Loc: [facility] Attending Dr: Demetrius Cote MD Ordering Physician: Demetrius Cote MD Date of Service: 07/09/24 Procedure(s): NM bone scan limited area Accession Number(s): [id number] cc: Demetrius Cote MD EXAMINATION: BONE SCAN OF THE SPINE, LIMITED CLINICAL INFORMATION: Low back and sacral pain. L2 compression fracture. COMPARISON: Lumbar spine 06/24/2024 TECHNIQUE: Multiple gamma scintillation camera images of the entire spine and pelvis were performed 3 hours following the intravenous administration of 30 mCi Tc-99m MDP. FINDINGS: There is moderate to intense activity seen in L2 vertebra consistent with acute compression fracture. There is mild bilateral pedicle activity seen L1 vertebra from old surgical changes/kyphoplasty. There are no additional areas of abnormal activity seen. Especially no activity seen in the sacrum, SI joints or the pelvis. There is mild scoliosis of thoracolumbar spine. The soft tissues are normal. NM/NM bone scan limited area IMPRESSION: Focal increased activity L2 vertebra consistent with acute compression fracture. There is no suspicion of additional fractures or sacral insufficiency fracture. Electronically signed by: Idris Perez MD 07/09/2024 02:53 PM EST RP Dictated By: Idris Perez MD Signed By: <Electronically signed by Idris Perez MD in OV> 07/09/24 1453 DD/ 1015 TD/TT: 07/09/24 1400 Laboratory Asst: [place] [address] Nuclear Medicine Report Signed Patient: Rose Cheung MR#: [id number] : 1945 Acct:[id number] Age/Sex: 79 / F ADM Date: 07/09/24 Loc: [facility] Attending Dr: Demetrius Cote MD Ordering Physician: Demetrius Cote MD Date of Service: 07/09/24 Procedure(s): NM bon e scan limited area Accession Number(s): [id number] cc: Demetrius Cote MD EXAMINATION: BONE SCAN OF THE SPINE, LIMITED CLINICAL INFORMATION: Low back and sacral pain. L2 compression fracture. COMPARISON: Lumbar spine 06/24/2024 TECHNIQUE: Multiple gamma scint illation camera images of the entire spine and pelvis were performe d 3 hours following the intravenous administration of 30 mCi Tc-99m MDP. FINDINGS: There is moderate to intense activity seen in L2 vertebra consistent with acute compressi on fracture. There is mild bilate ral pedicle activity seen L1 vertebra from old surgical changes/kyp hoplasty. There are no additional areas of abnormal activity seen. Espec ially no activity seen in the sacrum, SI joints or the pelvis. There is mild scoliosis of thoracolumbar spine. The soft tissues are normal. N M/NM bone scan limited area IMPRESSION: Focal increased acti vity L2 vertebra consistent with acute compression fracture. There is no suspicio n of additional fractures or sacral insufficiency fracture. Electronically hamida d by: Idris Perez MD 07/09/2024 02:53 PM EST RP Dictated By: Idris Perez MD Signed By: <Electro nically signed by Idris Perez MD in OV> 07/09/24 1453 DD/ 1015 TD/TT: 07/09/24 1400 Laboratory Asst: [facility] REASON FOR VISIT Message Social History Sex Assigned At : Social History Observation Description Sex Assigned At Female Encounters Encounter Location Date Provider Diagnosis Demetrius Cote III, MD [address] [place] [address] [address] [place] [address] 07/07/2024 Demetrius Cote Compression fracture of L2 vertebra, initial encounter S32.020A Assessments Encounter Date Diagnosis (ICD Code) Assessment Notes Treat ment Notes Treatment Clinical Notes 07/07/2024 Compression fracture of L2 vertebra, initial encounter (ICD-10 - S32.020A) Plan Of Treatment Next Appt Details Provider Name:Demetrius Browningrne, 11/26/2024 09:30:00 AM, [address] [place] [address] [address], [place], [address], Progress Notes * MAMIE LigiahudsonDOB:[birth year] (79 yo F)Acc No.[id number]:07/07/2024 Patient:?Kayla CHEUNG :1945???Age:79 Y???Sex:Female Address:[address] [place] [phone] Subjective: * Chief Complaints: * ???Message * Medical History:? * Surgical History:? * Hospitalization/Major Diagno stic Procedure:? * Medications:? Objective: * Vitals:? * Physical Examination:? Assessment: * Assessment: 1.?Compression fracture of L 2 vertebra, initial encounter - S32.020A??? Plan: * Treatment: * Procedure Codes:? * true * Date:? Generated for Yoan moise/Kris/Chrisitting on:?07/10/2024 06:46 AM EST
--- OUTSIDE RECORDS SUMMARY | 2024-07-10 06:47 | XMS_ITS ---
Author Organization Demetrius Cote III, MD Address [address] [place] [address] [place] [address] Care Team Providers Care Interventional Cardiologist Name Role Phone Demetrius Cote Primary Care Provider REASON FOR VISIT Pain Meds / Dr. Ridley Appt Social History Sex Assigned At : Social History Observation Description Sex Assigned At Female Encounters Encounter Location Date Provider Diagnosis Demetrius Cote III, MD [address] [place] [address] [place] [address] 07/03/2024 Demetrius Cote Plan Of Treatment Next Appt Details Provider Name:Demetrius Cote, 11/26/2024 09:30:00 AM, [address] [place] [address] [place], [address], Progress Notes * Kayla CHEUNGDOB:[birth year] (79 yo F)Acc No.[id number]:07/03/2024 Patient:?Kayla CHEUNG :1945???Age:79 Y???Sex:Female Address:[address] [place] [address] * true * Date:? Generated for Printi ng/Faxing/eTransmitting on:?07/10/2024 06:47 AM EST
[2024-07-16 10:42] VITALS: BMI 27.6
--- NOTE | 2024-07-17 10:52 | HO.ANESPROP2 ---
Documented by User: Tammi Wisdom NP 07/17/24 10:59 HPI - Anesthesia Eval Consult details Narrative: 79yo F for L2 Kyphoplasty Follows [facility] cardiology for s/p TAVR 2022, pacer for 2nd deg HB, afib (eliquis, s/p ablation [facility]2023[facility] Active Problems Active Problems: All Active Problems Bacterial sinusitis (Acute) History of compression fracture of spine (Acute) Sjogren's syndrome with keratoconjunctivitis sicca (Acute) Past Medical History Medical History Osteoarthritis Heart block AV second degree Psoriasis Gallstones Pancreatic cyst Insomnia Hx-TIA (transient ischemic attack) (2011) History of chemotherapy History of cardioversion (07/2023) History of cardiac pacemaker in situ (2011) History of transcatheter aortic valve replacement (TAVR) PAF (paroxysmal atrial fibrillation) History of breast cancer History of non-Hodgkin's lymphoma Anemia UTI (urinary tract infection) Sjogren's syndrome with keratoconjunctivitis sicca Family History Family history of problems with anesthesia: No Surgical History Surgical History Hx of splenectomy (1987) Hx of right mastectomy (2014) History of esophagogastroduodenoscopy (EGD) Hx of colonoscopy Hx of kyphoplasty History of cardiac catheterization S/P TAVR (transcatheter aortic valve replacement) History of Problems with Anesthesia: No Social History Social History Household Members: Spouse Household Members Other:: daughter Housing: House Are you a primary skin care technician to a significant other at home: No Do you presently have visiting nurse or other home services: No Alcohol intake: current Alcohol intake frequency: holidays/special occasions only Patient Tobacco Use Status: Former Tobacco user Tobacco use type: Cigarette Cigarette Packs Per Day: 0.25 Years Smoked: 1 e-Cigarette/Vaping Use: Never Used Use of substances other than those prescribed or required for medical reasons: No Have you been hit, kicked, punched, or otherwise hurt by someone within the past year? If so, by whom?: No Are you DNR?: No Advance Directives: No Advance Directives Information Provided: Yes Advance Directives on File: No Recently lost weight without trying: Yes How much weight loss: 2-13 pounds Eating poorly because of decreased appetite: Yes Nutrition screen score: 4 Nutrition Risks: Surgical patient >75years Poor oral hygiene: No (4 lower implants) service: No Meds Allergies Allergy/AdvReac Type Severity Reaction Status Date / Time amoxicillin [AMOXICILLIN] Allergy Severe hives, Verified 07/16/24 09:59 anaphylaxis, hives Penicillins [PENICILLINS] Allergy Mild hives, Verified 07/16/24 09:59 itching Sulfa (Sulfonamide Allergy Mild HIVES, Verified 07/16/24 09:59 Antibiotics) itching [SULFA (SULFONAMIDE ANTIBIOTICS)] Home Medications ?Medication ?Instructions ?Recorded ?Confirmed ?Last Taken ?Type apixaban 5 mg tablet (Eliquis) 5 mg PO BID 08/24/20 07/14/24 07/16/24 History cholecalciferol (vitamin D3) 25 25 mcg PO DAILY 08/24/20 07/14/24 07/19/24 History mcg (1,000 unit) capsule levothyroxine 100 mcg capsule 100 mcg PO DAILY 08/24/20 07/14/24 07/19/24 History simvastatin 40 mg tablet 40 mg PO BEDTIME 08/24/20 07/14/24 07/19/24 History calcium carbonate 600 mg PO BID 11/27/21 07/14/24 07/19/24 History ferrous sulfate 325 mg (65 mg 325 mg PO DAILY 11/27/21 07/14/24 07/23/23 History iron) tablet alendronate 70 mg tablet 70 mg PO MOREIRA 11/13/22 07/14/24 07/19/24 History aspirin 81 mg tablet,delayed 81 mg PO DAILY 11/13/22 07/14/24 07/16/24 History release fluorometholone 0.1 % eye 1 drp ophthalmic (eye) BEDTIME 11/13/22 07/16/24 07/19/24 History drops,suspension metoprolol tartrate 25 mg tablet 25 mg PO BID 07/23/23 07/14/24 07/20/24 History peg 400-propylene glycol (PF) 0.4 1 drp ophthalmic (eye) 5XD PRN Dry 07/23/23 07/14/24 07/20/24 History %-0.3 % eye drops in a dropperette Eyes (Systane (PF)) trazodone 150 mg tablet 150 mg PO BEDTIME Insomnia 07/23/23 07/14/24 07/19/24 History pantoprazole 40 mg tablet,delayed 40 mg PO BEDTIME 07/16/24 07/16/24 07/19/24 History release Exam Height,Weight and Vital Signs: Height 5 ft 1 in Weight 66.224 kg Pertinent Lab Results Pertinent Lab Results: BMP and CBC 06/2024 from [facility] Narrative Narrative: Pacer interrogation 05/2024 Nml lead and device function. Afib burden <0.1% Mode DDDR 60-130bpm ECG 12-Lead 11/2023 AV dual paced rhythm EchoEchocardiogram - Complete ? 12:59:35 Summary The left ventricular size is normal. The left ventricular wall thickness is mildly increased. The LV systolic function is normal. The left ventricular ejection fraction is 55-60 %. There are no definite regional wall motion abnormalities. Unable to assess diastolic function due to mitral annulus calcification. There is a bioprosthetic valve in the aortic position (Evolut FX #29). There is no significant central regurgitation. Trivial perivalvular leak. The mean gradient is 5 mmHg. There is severe mitral annular calcification. The mitral valve appears severely calcified. There is no significant mitral regurgitation. There is calcific mitral stenosis with a mean gradient of 4 mmHg at 61 bpm. The right ventricle is normal in size and function. A pacer/ICD wire is seen in the right ventricle. There is no significant pericardial effusion. Comparison Comparison is made to the study of October 31, 2022. Images not available. Assessment and Plan Assessment Anesthesia Assessment: Chart Reviewed Final Anesthetic Review Family History of Problems with Anesthesia: No History of Problems with Anesthesia: No Documented by User: Sunshine Craig MD 07/20/24 13:27 [facility] Past Medical History Medical History Osteoarthritis Heart block AV second degree Psoriasis Gallstones Pancreatic cyst Insomnia Hx-TIA (transient ischemic attack) (2011) History of chemotherapy History of cardioversion (07/2023) History of cardiac pacemaker in situ (2011) History of transcatheter aortic valve replacement (TAVR) PAF (paroxysmal atrial fibrillation) History of breast cancer History of non-Hodgkin's lymphoma Anemia UTI (urinary tract infection) Sjogren's syndrome with keratoconjunctivitis sicca Family History Family history of problems with anesthesia: No Surgical History Surgical History Hx of splenectomy (1987) Hx of right mastectomy (2014) History of esophagogastroduodenoscopy (EGD) Hx of colonoscopy Hx of kyphoplasty History of cardiac catheterization S/P TAVR (transcatheter aortic valve replacement) History of Problems with Anesthesia: No Social History Social History Household Members: Spouse Household Members Other:: daughter Housing: House Are you a primary skin care technician to a significant other at home: No Do you presently have visiting nurse or other home services: No Alcohol intake: current Alcohol intake frequency: holidays/special occasions only Patient Tobacco Use Status: Former Tobacco user Tobacco use type: Cigarette Cigarette Packs Per Day: 0.25 Years Smoked: 1 e-Cigarette/Vaping Use: Never Used Use of substances other than those prescribed or required for medical reasons: No Have you been hit, kicked, punched, or otherwise hurt by someone within the past year? If so, by whom?: No Are you DNR?: No Advance Directives: No Advance Directives Information Provided: Yes Advance Directives on File: No Recently lost weight without trying: Yes How much weight loss: 2-13 pounds Eating poorly because of decreased appetite: Yes Nutrition screen score: 4 Nutrition Risks: Surgical patient >75years Poor oral hygiene: No (4 lower implants) service: No Meds Allergies Allergy/AdvReac Type Severity Reaction Status Date / Time amoxicillin [AMOXICILLIN] Allergy Severe hives, Verified 07/16/24 09:59 anaphylaxis, hives Penicillins [PENICILLINS] Allergy Mild hives, Verified 07/16/24 09:59 itching Sulfa (Sulfonamide Allergy Mild HIVES, Verified 07/16/24 09:59 Antibiotics) itching [SULFA (SULFONAMIDE ANTIBIOTICS)] Home Medications ?Medication ?Instructions ?Recorded ?Confirmed ?Last Taken ?Type apixaban 5 mg tablet (Eliquis) 5 mg PO BID 08/24/20 07/14/24 07/16/24 History cholecalciferol (vitamin D3) 25 25 mcg PO DAILY 08/24/20 07/14/24 07/19/24 History mcg (1,000 unit) capsule levothyroxine 100 mcg capsule 100 mcg PO DAILY 08/24/20 07/14/24 07/19/24 History simvastatin 40 mg tablet 40 mg PO BEDTIME 08/24/20 07/14/24 07/19/24 History calcium carbonate 600 mg PO BID 11/27/21 07/14/24 07/19/24 History ferrous sulfate 325 mg (65 mg 325 mg PO DAILY 11/27/21 07/14/24 07/23/23 History iron) tablet alendronate 70 mg tablet 70 mg PO MOREIRA 11/13/22 07/14/24 07/19/24 History aspirin 81 mg tablet,delayed 81 mg PO DAILY 11/13/22 07/14/24 07/16/24 History release fluorometholone 0.1 % eye 1 drp ophthalmic (eye) BEDTIME 11/13/22 07/16/24 07/19/24 History drops,suspension metoprolol tartrate 25 mg tablet 25 mg PO BID 07/23/23 07/14/24 07/20/24 History peg 400-propylene glycol (PF) 0.4 1 drp ophthalmic (eye) 5XD PRN Dry 07/23/23 07/14/24 07/20/24 History %-0.3 % eye drops in a dropperette Eyes (Systane (PF)) trazodone 150 mg tablet 150 mg PO BEDTIME Insomnia 07/23/23 07/14/24 07/19/24 History pantoprazole 40 mg tablet,delayed 40 mg PO BEDTIME 07/16/24 07/16/24 07/19/24 History release Exam Height,Weight and Vital Signs: Height 5 ft 1 in Weight 66.224 kg Vital Signs Temp Pulse Resp BP Pulse Ox O2 Del Method 07/20/24 12:40 99.0 F 72 16 129/76 96 Room Air Pertinent Lab Results Pertinent Lab Results: BMP and CBC 06/2024 from [facility] Lab Results 07/20/24 Range/Units 12:28 WBC 7.5 (4.8-10.8) X10*3/uL RBC 3.52 L (4.20-5.50) X10*6/uL Hgb 10.9 L (12.0-16.0) g/dl Hct 33.5 L (37.0-47.0) % MCV 95.2 (80.0-98.0) fL MCH 31.0 (27.0-33.0) pg MCHC 32.5 (31.0-35.0) g/dl RDW 15.1 (11.0-16.0) % Plt Count 173 (160-400) X10*3/uL MPV 11.0 (9.4-12.3) fL Immature Gran % (Auto) 0.4 (0.0-0.4) % Neut % (Auto) 66.9 (45-73) % Lymph % (Auto) 12.6 L (20-40) % Whitfield % (Auto) 14.2 H (2-11) % Eos % (Auto) 5.1 H (0-4) % Baso % (Auto) 0.8 (0-2) % Lymph # (Auto) 1.0 L (1.2-4.9) X10*3/uL Whitfield # (Auto) 1.1 (0.1-1.2) X10*3/uL Eos # (Auto) 0.4 (0.0-0.4) X10*3/uL Baso # (Auto) 0.1 (0.0-0.2) X10*3/uL Abs Immat Gran (auto) 0.03 (0.00-0.03) X10*3/uL Absolute Neuts (auto) 5.0 (2.0-8.3) x10*3/uL Absolute Nucleated RBC 0.020 H (0.0-0.012) X10*3/uL Nucleated RBC % (auto) 0.3 H (0.0-0.2) /100WBC PT 12.2 (10.9-12.4) SEC INR 1.0 (0.9-1.1) APTT 28.9 (26.0-36.8) SEC Airway Mallampati Class: III TM Dist: >3cm Neck ROM: Full Loose/Missing/Broken Teeth: Yes ( Several missing teeth.1broken tooth bottom left. No loose teeth) Heart: Irregular Lungs: CTAB Assessment and Plan Assessment Anesthesia Assessment: Anesthesia Plan Discussed and Chart Reviewed Final Anesthetic Review Family History of Problems with Anesthesia: No History of Problems with Anesthesia: No NPO: Yes ASA Class: III Final Preanesthetic Review: No Changes in Pt Med Stat, Meds/Allgs Chart Reviewed, Consent Obtained/Reviewed and Anes Risks/Benef Reviewed Patient Risk: Intermediate Procedure Risk: Low Assessment/Block/Sedation in SS: Assess/Block/Sedation-SS Anesthetic Plan Anesthetic Plan: MAC: Disposition: Standard PACU
[2024-07-20] VITALS (10 sets, daily range): BP systolic 127–146; BP diastolic 51–80; PULSE 65–72; RESP 14–16; TEMP 36.1–37.2; O2SAT 92–97
--- NOTE | ~2024-07-20 | CT_ITS ---
EXAMINATION: CT LUMBAR SPINE WITHOUT CONTRAST CLINICAL INFORMATION: Free Kyphoplasty evaluation for L2 fracture. COMPARISON: Bone scan 07/09/2024. TECHNIQUE: 2 mm thin axial and reformatted 2 mm thin sagittal and coronal images of lumbar spine were obtained without contrast. DLP 644 mGy/cm. This CT examination was performed using dose optimization techniques as appropriate, variously including the following: *Automated exposure control *Adjustment of mA and/or kV according to patient size (this includes techniques or standardized protocols for targeted exams where dose is matched to indication/reason for exam; i.e. extremities or head) *Use of iterative reconstruction technique FINDINGS: On sagittal reconstructed images there is acute compression fracture L2 vertebra with approximately 25-30% loss of vertebral height . There is old compression fracture T11 and T12 vertebra with cement augmentation.. The L1, L3, L4-L5 vertebral heights are maintained normal. There is diffuse osteopenia. Loss of L2-3 and significant loss of L3-4 disc height is noted. There is no lytic process. There is mild diffuse posterior bulge/osteophyte complex at L2-3 disc level. Rest of the disc levels are grossly unremarkable. The neural foramina are patent at all lumbar disc levels. Evidence of disc bulge, herniation or spinal canal stenosis at any of the disc levels. The paravertebral soft tissues are normal. CT/CT lumbar spine pre vert IMPRESSION: Acute L2 compression fracture with loss of 25-30% vertebral height. No posterior bony component seen. No spinal canal stenosis. Old T12 and T9 11 compression wedge fractures with cement augmentation than previously. Mildly in this changes L2-3 and signal loss of disc height at L3-4 disc levels. No aggressive lytic or sclerotic process seen. Electronically signed by: Idris Perez MD 07/20/2024 05:34 PM EDT
--- NOTE | ~2024-07-20 | CT_ITS ---
EXAMINATION: CT LUMBAR SPINE CLINICAL INFORMATION: Post L2 kyphoplasty. COMPARISON: None available. TECHNIQUE: 2 mm thin axial and reformatted 2 mm thin sagittal and coronal images of lumbar spine were obtained without contrast. This CT examination was performed using dose optimization techniques as appropriate, variously including the following: *Automated exposure control *Adjustment of mA and/or kV according to patient size (this includes techniques or standardized protocols for targeted exams where dose is matched to indication/reason for exam; i.e. extremities or head) *Use of iterative reconstruction technique DLP: 1259 mGy/cm. FINDINGS: Sagittal reconstructed images there is maintained lumbar lordosis. There is adequate amount of cement in L2 vertebra following kyphoplasty. There is no extension of cement seen. Especially no posterior extension positions cement seen in the spinal canal. No change in the T11 and T12 vertebral old vertebral fracture and cement augmentation. Degenerative disc changes at L2-3, L3-4 disc levels is unchanged to previous kyphoplasty CT lumbar spine. The paravertebral and prevertebral soft tissues are normal. There is bilateral L5-S1, L4-5, L3-4 facet joint arthropathy and hypertrophy. CT/CT lumbar spine post vert IMPRESSION: Adequate amount of cement visualized in L2 vertebra post kyphoplasty. Degenerative disc changes L2-3 and L3-4 disc levels are unremarkable. Electronically signed by: Idris Perez MD 07/20/2024 06:00 PM EDT
--- NOTE | ~2024-07-20 | IR_ITS ---
Examination: L2 kyphoplasty. CLINICAL INDICATION: Acute L2 compression fracture with significant pain ambulating. Osteopenia. COMPARISON: Bone scan 07/09/2024 and lumbar spine 06/24/2024. TECHNIQUE: Following explaining fluoroscopy-guided L2 kyphoplasty detail procedure, benefits in risk aerated and consent was obtained. Patient was placed prone on the fluoroscopy IR table and L2 pedicles were localized and the skin and markers placed. The marked area was cleaned and draped in usual sterile manner with 2% chlorhexidine solution. 1% lidocaine was injected overlying the right pedicle skin marker. A 22-gauge needle was advanced to the right pedicle and 0.25% Marcaine administered. Through a small skin incision 18-gauge Kyphon needle was advanced from the skin through right pedicle into posterior one thirds of L2 vertebra. A second needle was advanced in a similar fashion to the left pedicle. The stylets were removed and hand drill was advanced and tract created. Subsequently curette was advanced and bone marrow was macerated. Curette was removed and high tensile balloons were inserted through the right and left needles. The balloons were inflated for 5 minutes and subsequently deflated and removed. Premixed polymethyl methacrylate was injected through right followed by left needles under lateral and AP continuous fluoroscopy. After achieving adequate amount of cement concentration and observing no cement leak, both needles were withdrawn and complete hemostasis achieved at puncture site. Simple dressing was applied at the puncture site. 1 to 2 mL of blood loss was noted. Conscious sedation was given during the exam. Patient was monitored by our IR nursing and IR physician during the exam. FINDINGS/ IR/IR kyphoplasty lumbar IMPRESSION: There is moderate L2 compression fractures with loss of 25- 30% of vertebral height. There is old T12 and T11 wedge fractures with cement augmentation. Successful bi pedicular approach L2 kyphoplasty performed under fluoroscopy without immediate complications. Patient was sent to CT postprocedure. Electronically signed by: Idris Perez MD 07/22/2024 03:26 PM EDT
[2024-07-20 12:41] LABS: MANUAL DIFF FLAG NO
[2024-07-20] MEDS: Lactated Ringers 1,000 ML 100 ML IVCONT (12:41)
[2024-07-20 12:43] LABS: Basophils Absolute Auto 0.1 X10*3/uL (0.0-0.2); Basophils Percent Auto 0.8 % (0-2); Eosinophils Absolute Auto 0.4 X10*3/uL (0.0-0.4); Eosinophils Percent Auto 5.1 % (0-4); Hematocrit 33.5 % (37.0-47.0); Hemoglobin 10.9 g/dl (12.0-16.0); Imm Gran Abs Auto 0.03 X10*3/uL (0.00-0.03); Imm Gran Pct Auto 0.4 % (0.0-0.4); Lymphocytes Percent Auto 12.6 % (20-40); Mean Corpuscular HGB Conc 32.5 g/dl (31.0-35.0); Mean Corpuscular Volume 95.2 fL (80.0-98.0); Monocytes Absolute Auto 1.1 X10*3/uL (0.1-1.2); Monocytes Percent Auto 14.2 % (2-11); NRBC Pct Auto 0.3 /100WBC (0.0-0.2); Neutrophils Percent Auto 66.9 % (45-73); Platelet Count 173 X10*3/uL (160-400); Red Blood Count 3.52 X10*6/uL (4.20-5.50); Red Cell Distribution Width 15.1 % (11.0-16.0); White Blood Count 7.5 X10*3/uL (4.8-10.8)
[2024-07-20 12:49] LABS: Prothrombin Time 12.2 SEC (10.9-12.4)
[2024-07-20 12:51] LABS: Partial Thromboplastin Time 28.9 SEC (26.0-36.8)
[2024-07-20 14:12] LABS: Anion Gap 11 (12-20); Blood Urea Nitrogen 19 mg/dL (9-16); Calcium 8.2 mg/dL (8.4-10.2); Carbon Dioxide 18 mmol/L (22-29); Chloride 107 mmol/L (96-108); Creatinine Clr Calc Pharmacy 48.6; Estimated Glomerular Filt Rate > 60; Glucose Random 89 mg/dL (60-115); Potassium 4.2 mmol/L (3.3-5.1); Sodium 132 mmol/L (135-145)
== END 2024-07-20 19:11 | disposition home or self-care (01) ==
PROVIDERS: Radiology Diagnostic Radiology; Visit Provider Internal Medicine Medical Oncology
DX: S32.020A Wedge compression fracture of second lumbar vertebra, initial encounter for closed fracture (principal); M54.50 Low back pain, unspecified; Z87.81 Personal history of (healed) traumatic fracture; M85.80 Other specified disorders of bone density and structure, unspecified site; R26.2 Difficulty in walking, not elsewhere classified; X58.XXXA Exposure to other specified factors, initial encounter; Y92.9 Unspecified place or not applicable; Y99.9 Unspecified external cause status; Z95.0 Presence of cardiac pacemaker; Z95.2 Presence of prosthetic heart valve; M35.01 Sjogren syndrome with keratoconjunctivitis; I48.0 Paroxysmal atrial fibrillation; D64.9 Anemia, unspecified; Z85.72 Personal history of non-Hodgkin lymphomas; Z85.3 Personal history of malignant neoplasm of breast; Z92.21 Personal history of antineoplastic chemotherapy; Z79.01 Long term (current) use of anticoagulants; Z79.82 Long term (current) use of aspirin; Z79.899 Other long term (current) drug therapy; Z88.0 Allergy status to penicillin; Z88.1 Allergy status to other antibiotic agents; Z88.2 Allergy status to sulfonamides; Z98.890 Other specified postprocedural states; Z87.891 Personal history of nicotine dependence
CPT/HCPCS: 22514; 36415; 72131; 80048; 85025; 85610; 85730; J0131; J0736; J2003; J2250; J2405; J2704; J3010

== ENCOUNTER → 2024-07-20 13:52 | Outpatient (BNV) | payer MEDICARE, SELFPAY ==
[2023-01-14 15:19] VITALS: BP 130/62; BP 134/66; BP 138/70; BMI 33.3
== END ==
PROVIDERS: Visit Provider Radiology Diagnostic Radiology
DX: S32.029A Unspecified fracture of second lumbar vertebra, initial encounter for closed fracture (principal); Z98.890 Other specified postprocedural states
CPT/HCPCS: 72131

== ENCOUNTER 2024-08-17 08:45 | Outpatient (REF) | payer MEDICARE, SELFPAY ==
[2023-01-14 15:19] VITALS: BP 130/62; BP 134/66; BP 138/70; BMI 33.3
--- OUTSIDE RECORDS SUMMARY | 2024-08-17 09:26 | XMS_ITS ---
Author Organization Demetrius Cote III, MD Address [address] [place] [address] [place] [address] Care Team Providers Care Acetylene Burner Name Role Phone Demetrius Cote Primary Care Provider REASON FOR VISIT Message Social History Sex Assigned At : Social History Observation Description Sex Assigned At Female Encounters Encounter Location Date Provider Diagnosis Demetrius Cote III, MD [address] [place] [address] [address] [place] [address] 07/21/2024 Demetrius Cote Plan Of Treatment Next Appt Details Provider Name:Demetrius Cote, 11/26/2024 09:30:00 AM, [address] [place] [address] [place], [address], Progress Notes * Kayla CHEUNGDOB:[birth year] (79 yo F)Acc No.[id number]:07/21/2024 Patient:?Kayla CHEUNG :1945???Age:79 Y???Sex:Female [address] [place] [address] * true * Date:? Generated for Printi ng/Faxing/eTransmitting on:?08/17/2024 09:26 AM EDT
--- OUTSIDE RECORDS SUMMARY | 2024-08-17 09:26 | XMS_ITS ---
Author Organization Demetrius Cote III, MD Address [address] [place] [address] [place] [address] Care Team Providers Care Coal Wheeler Name Role Phone Demetrius Cote Primary Care Provider [phone] REASON FOR VISIT Pain Meds / Dr. Ridley Appt Social History Sex Assigned At : Social History Observation Description Sex Assigned At Female Encounters Encounter Location Date Provider Diagnosis Demetrius Cote III, MD [address] [place] [address] [place] [address] 07/03/2024 Demetrius Cote Plan Of Treatment Next Appt Details Provider Name:Demetrius Cote, 11/26/2024 09:30:00 AM, [address] [place] [address] [place], [address], Progress Notes * Kayla CHEUNGDOB:[birth year] (79 yo F)Acc No.[id number]:07/03/2024 Patient:?Kayla CHEUNG :1945???Age:79 Y???Sex:Female Address:[address] [place] [address] * true * Date:? Generated for Printi ng/Faxing/eTransmitting on:?08/17/2024 09:25 AM EDT
--- OUTSIDE RECORDS SUMMARY | 2024-08-17 09:26 | XMS_ITS ---
Author Organization Demetrius Cote III, MD Address [address] [address] Care Team Providers Care Scrip Clerk Name Role Phone Demetrius Cote Primary Care Provider [phone] Results Component Value Reference Range Notes NM bone scan limited area Reviewed date:07/09/2024 08:39:37 PM Interpretation: Performing Lab: Notes/Report: [facility] [address] [place] [id number] Nuclear Medicine Report Signed Patient: Kayla Cheung MR#: [id number] : 1945 Acct:[id number] Age/Sex: 79 / F ADM Date: 07/09/24 Loc: [facility] Attending Dr: Demetrius Cote MD Ordering Physician: Demetrius Cote MD Date of Service: 07/09/24 Procedure(s): NM bone scan limited area Accession Number(s): [id number] cc: Demetrius Cote MD EXAMINATION: BONE SCAN [...] 07/09/24 1453 DD/ 1015 TD/TT: 07/09/24 1400 Funeral Location Manager: [place] [address] Nuclear Medicine Report Signed Patient: Rose Cheung MR#: [id number] : 1945 Acct:[id number] Age/Sex: 79 / F ADM Date: 07/09/24 Loc: [facility] Attending Dr: Demetrius Cote MD Ordering Physician: Demetrius Cote MD Date of Service: 07/09/24 Procedure(s): NM bon e scan limited area Accession Number(s): [id number] cc: Demetrius Cote MD EXAMINATION: BONE SCAN [...] 07/09/24 1453 DD/ 1015 TD/TT: 07/09/24 1400 Funeral Location Manager: [place] REASON FOR VISIT Message Social History Sex Assigned At : Social History Observation Description Sex Assigned At Female Encounters Encounter Location Date Provider Diagnosis Demetrius Cote III, MD [address] [place] [address] [address] [place] [address] 07/07/2024 Demetrius Cote Compression fracture of L2 vertebra, initial encounter S32.020A Assessments Encounter Date Diagnosis (ICD Code) Assessment Notes Treat ment Notes Treatment Clinical Notes 07/07/2024 Compression fracture of L2 vertebra, initial encounter (ICD-10 - S32.020A) Plan Of Treatment Next Appt Details Provider Name:Demetrius Browningrne, 11/26/2024 09:30:00 AM, [address] [place] [address] [address] [place], [address], Progress Notes * MAMIE LigiahudsonDOB:[birth year] (79 yo F)Acc No.[id number]:07/07/2024 Patient:?Kayla CHEUNG :1945???Age:79 Y???Sex:Female Address:[address] [place] [address] Subjective: * Chief Complaints: * ???Message * Medical History:? * Surgical History:? * Hospitalization/Major Diagno stic Procedure:? * Medications:? Objective: * Vitals:? * Physical Examination:? Assessment: * Assessment: 1.?Compression fracture of L 2 vertebra, initial encounter - S32.020A??? Plan: * Treatment: * Procedure Codes:? * true * Date:? Generated for Yoan moise/Kris/Jhonnysmsendy on:?08/17/2024 09:25 AM EDT
--- OUTSIDE RECORDS SUMMARY | 2024-08-17 09:27 | XMS_ITS | Patient Health Record ---
Author Organization Demetrius Cote III, MD Address [address] [place] [address] Care Team Providers Care Lpn Rn Hospice Name Role Phone Demetrius Cote Primary Care Provider Allergies Allergen (clinical drug ingredient) Drug/Non Drug Allergy documented on EMR Reaction Allergy Type Onset Date Status Penicillin Unknown Drug Allergy Active sulfamethoxazole / trimethoprim Sulfamethoxazole-Tri methoprim hives Drug Allergy Active amoxicillin Amoxicillin hives Drug Allergy Act anmol Results Component Value Reference Range Notes Lipid Panel Reviewed date:09/10/2023 04:15:43 PM Interpretation: Performing Lab:[facility], [address] [place] [phone] Notes/Report: Triglycerides 63 <150 mg/dL Desirable Triglyceride: [...] Thyroxine) Reviewed date:09/10/2023 04:15:43 PM Interpretation: Performing Lab:[facility], [address], [place] [address] Notes/Report: Free T4 (Free Thyroxine) 1.12 0.71-1.85 ng/dL XR chest 4 views Reviewed date:09/10/2023 04:15:43 PM Interpretation: Performing Lab: Notes/Report: [facility] [address] [place] [address] XRay Report Signed Patient: Kayla Cheung MR#: [id number] : 1945 Acct:[id number] Age/Sex: 78 / F ADM Date: 09/10/23 Loc: HO.HMGCX Attending Dr: Demetrius Cote MD Ordering Physician: Demetrius Cote MD Date of Service: 09/10/23 Procedure(s): XR chest 4 views Accession Number(s): [id number] cc: Demetrius Cote MD EXAMINATION: XR CHEST [...] in OV> 09/10/23 1027 DD/ 0858 TD/TT: Cloth Sander: [facility] [address] [place] [address] XRay Report Signed Patient: Kayla Cheung MR#: [id number] : 1945 Acct:[id number] Age/Sex: 78 / F ADM Date: 09/10/23 Loc: HO.HMGCX Attending : Demetrius Cote MD Ordering Physician: Demetrius Cote MD Date of Service: 09/10/23 Procedure(s): XR bill st 4 views Accession Number(s): [id number] cc: Demetrius Cote MD EXAMINATION: XR CHEST [...] size is normal. No interstitial pulmonary edema. The re are dual pacer electrodes in the right atrium and right ventricle. 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 Kyphoplasty changes are present at T11 and T12. XR/XR chest 4 views IMPRESSION: 1. Left lower lobe a nd lingular atelectasis and/or pneumonia. 2. Small left pleura l effusion versus pleural thickening. Dictated By: Romy Whitaker MD Signed By: <Electronically signed by Romy Whitaker MD in OV> 09/10/23 1027 DD/ 0858 TD/TT: Cloth Sander: URINE DIP STICK Reviewed date:03/24/2024 06:03:54 AM Interpretation: Performing Lab: Notes/Report: SG 1.000 1.005 - 1.025 pH 5.0 5.0 - 9.0 YASSINE 70++ Negative - NIT neg Negative - PRO NEG Negative - Trace GLU NEG Negative - KET NEG Negative - UBG 0.2 0.1 - 1.8 JULIEN NEG 0.2 - 1.3 BLD LARGE Negative - Menstrating no NM bone scan limited area Reviewed date:07/09/2024 08:39:37 PM Interpretation: Performing Lab: Notes/Report: [address] [address] Nuclear Medicine Report Signed Patient: Kayla Cheung MR#: [id number] : 1945 Acct:[id number] Age/Sex: 79 / F ADM Date: 07/09/24 Loc: HO.NUCMED Attending Dr: Demetrius Cote MD Ordering Physician: Demetrius Cote MD Date of Service: 07/09/24 Procedure(s): NM bone scan limited area Accession Number(s): [id number] cc: Demetrius Cote MD EXAMINATION: BONE SCAN [...] Idris Perez MD 07/09/2024 02:53 PM EST Dictated By: Idris Perez MD Signed By: <Electronically signed by Idris Perez MD in OV> 07/09/24 1453 DD/ 1015 TD/TT: 07/09/24 1400 Cloth Sander: [place] [address] Nuclear Medicine Report Signed Patient: Kayla Cheung MR#: [id number] : 1945 Acct:[id number] Age/Sex: 79 / F ADM Date: 07/09/24 Loc: CELINA Attending Dr: Demetrius Cote MD Ordering Physician: Demetrius Cote MD Date of Service: 07/09/24 Procedure(s): NM bon e scan limited area Accession Number(s): [id number] cc: Demetrius Cote MD EXAMINATION: BONE SCAN OF THE SPI NE, LIMITED CLINICAL INFORMATION: Low back and sacral [...] by: Idris Perez MD 07/09/2024 02:53 PM [facility] Dictated By: Idris Perez MD Signed By: <Electronically signed by Idris Perez MD in OV> 07/09/24 1453 DD/ 1015 TD/TT: 07/09/24 1400 Cloth Sander: [facility] [place] [place] Complete Blood Count Auto Di ff Reviewed date:09/10/2023 04:15:43 PM Interpretation: Performing Lab:[facility], [address] [place] [phone] Notes/Report: White Blood Count 11.5 4.8-10.8 X10*3/uL [...] te Reviewed date:09/10/2023 04:15:43 PM Interpretation: Performing Lab:[facility], [address] [place] [phone] Notes/Report: Erythrocyte Sedimentation Rate 85 0-20 MM/HR Patients with polycythemia and many hemoglobin abnormalities may have depressed sed rates whereas patients with anemia may have elevated sed rates. Comprehensive [place]. Panel Fa st Reviewed date:09/10/2023 04:15:43 PM Interpretation: Performing Lab:[facility], [address] [place] [phone] Notes/Report: Sodium 136 135-145 mmol/L Potassium 4.1 3.3-5.1 mmol/L Slight Hemoly sis Chloride 103 96-108 mmol/L Carbon Dioxide 21 22-29 mmol/L Anion Gap 16 12-20 Blood Urea Nitrogen 18 9-16 mg/dL Creatinine 0.99 0.5-1.4 mg/dL Estimated Glomerular Filt Rate 54 NOTE: For -Ukrainian individuals, multiply the result by 1.210. Chronic [...] Hormone Reviewed date:09/10/2023 04:15:43 PM Interpretation: Performing Lab:[facility], [address] [place] [phone] Notes/Report: Thyroid Stimulating Hormone 0.06 0.32-4.0 uIU/mL TSH 3rd Generation ([facility]) Complete Blood Count Auto Di ff Reviewed date:03/24/2024 06:03:54 AM Interpretation: Performing Lab:[facility], [address] [place] [phone] Notes/Report: White Blood Count 8.0 4.8-10.8 X10*3/uL Red Blood Count 3.52 4.20-5.50 X10*6/uL Hemoglobin 11.1 12.0-16.0 g/dl Hematocrit 34.7 37.0-47.0 % Mean Corpuscular Volume 98.6 80.0-98.0 fL Mean Corpuscular Hemoglobin 31.5 27.0-33.0 pg Mean Corpuscular HGB Conc 32.0 31.0-35.0 g/dl Red Cell Distribution Width 14.6 11.0-16.0 % Platelet Count 189 160-400 X10*3/uL Mean Platelet Volume 12.3 9.4-12.3 fL Neutrophils Percent Auto 69.7 45-73 % Imm Gran Pct Auto 0.5 0.0-0.4 % Lymphocytes Percent Auto 11.3 20-40 % Monocytes Percent Auto 13.0 2-11 % Eosinophils Percent Auto 4.9 0-4 % Basophils Percent Auto 0.6 0-2 % NRBC Pct Auto 0.0 0.0-0.2 /100WBC Neutrophils Absolute Auto 5.5 2.0-8.3 x10*3/u L Imm Gran Abs Auto 0.04 0.00-0.03 X10*3/uL Lymphocytes Absolute Auto 0.9 1.2-4.9 X10*3/u L Monocytes Absolute Auto 1.0 0.1-1.2 X10*3/uL Eosinophils Absolute Auto 0.4 0.0-0.4 X10*3/u L Basophils Absolute Auto 0.1 0.0-0.2 X10*3/uL NRBC Abs Auto 0.000 0.0-0.012 X10*3/uL Comprehensive [place]. Panel Fa st Reviewed date:03/24/2024 06:03:54 AM Interpretation: Performing Lab:[facility], [address] [place] [phone] Notes/Report: Sodium 139 135-145 mmol/L Potassium 4.9 3.3-5.1 mmol/L Chloride 107 96-108 mmol/L Carbon Dioxide 27 22-29 mmol/L Anion Gap 10 12-20 Blood Urea Nitrogen 15 9-16 mg/dL Creatinine 0.98 0.5-1.4 mg/dL Estimated Glomerular Filt Rate 55 Chronic Kidney Disease: Estimated GFR < 60 mL/min/1.73m2 Severe Kidney Disease: Estimated GFR < 15 mL/min/1.73m2 Glucose Fasting 97 60-99 mg/dL Calcium 9.3 8.4-10.2 mg/dL Bilirubin Total 0.4 0.0-1.0 mg/dL Aspartate Amino Transferase 30 5-31 U/L Alanine Aminotransferase 12 0-31 U/L Total Protein 7.0 6.5-8.0 g/dL Albumin Level 3.4 3.5-5.0 g/dL Alkaline Phosphatase 64 39-117 U/L Lipid Panel Reviewed date:03/24/2024 06:03:54 AM Interpretation: Performing Lab:[facility], [address] [place] [phone] Notes/Report: Triglycerides 45 <150 mg/dL Desirable Triglyceride: less than 150 mg/dL Borderline High Triglyceride 150-199 mg/dL High Triglyceride: 200-499 mg/dL Very High Triglyceride: greater than or equal to 5OO mg/dL Cholesterol 117 <200 mg/dL Desirable Cholesterol: less than 200 mg/dL Borderline High Cholesterol: 200-239 mg/dL High Cholesterol: greater than 239 mg/dL LDL Cholesterol Calculated 54 <100 mg/dL Desirable LDL: less than 100 mg/dL Near Optimal/Above Optimal LDL: 110-129 mg/dL Borderline High LDL: 130-159 mg/dL High LDL: 160-189 mg/dL Very High LDL: greater than or equal to 190 mg/dL HDL Cholesterol 54 >40 mg/dL Desirable HDL: greater than 40 mg/dL Note: This HDL assay may give artificially low results in patients with liver disease. Carbohydrate Antigen 19-9 Reviewed date:03/30/2024 10:13:09 AM Interpretation: Performing Lab:[facility], [address] [place] [phone] Notes/Report: Carbohydrate Antigen 19-9 54 <34 U/mL This test was performed using the Siemens chemiluminescent method. Values obtained from different assay methods cannot be used interchangeably. CA 19-9 levels, regardless of value, should not be interpreted as absolute evidence of the presence or absence of disease. THIS TEST WAS PERFORMED AT: [facility] [address] [place] [phone] ANNAMARIA EVANS MD Complete Blood Count Auto Di ff Reviewed date:04/24/2024 11:20:45 AM Interpretation: Performing Lab:[facility], [address] [place] [phone] Notes/Report: White Blood Count 5.7 4.8-10.8 X10*3/uL Red Blood Count 3.59 4.20-5.50 X10*6/uL Hemoglobin 11.3 12.0-16.0 g/dl Hematocrit 35.4 37.0-47.0 % Mean Corpuscular Volume 98.6 80.0-98.0 fL Mean Corpuscular Hemoglobin 31.5 27.0-33.0 pg Mean Corpuscular HGB Conc 31.9 31.0-35.0 g/dl Red Cell Distribution Width 14.2 11.0-16.0 % Platelet Count 188 160-400 X10*3/uL Mean Platelet Volume 11.7 9.4-12.3 fL Neutrophils Percent Auto 57.1 45-73 % Imm Gran Pct Auto 0.4 0.0-0.4 % Lymphocytes Percent Auto 16.2 20-40 % Monocytes Percent Auto 17.3 2-11 % Eosinophils Percent Auto 7.8 0-4 % Basophils Percent Auto 1.2 0-2 % NRBC Pct Auto 0.0 0.0-0.2 /100WBC Neutrophils Absolute Auto 3.2 2.0-8.3 x10*3/u L Imm Gran Abs Auto 0.02 0.00-0.03 X10*3/uL Lymphocytes Absolute Auto 0.9 1.2-4.9 X10*3/u L Monocytes Absolute Auto 1.0 0.1-1.2 X10*3/uL Eosinophils Absolute Auto 0.4 0.0-0.4 X10*3/u L Basophils Absolute Auto 0.1 0.0-0.2 X10*3/uL NRBC Abs Auto 0.000 0.0-0.012 X10*3/uL Comprehensive Met. Panel Reviewed date:04/24/2024 11:20:45 AM Interpretation: Performing Lab:[facility], [address] [place] [phone] Notes/Report: Sodium 141 135-145 mmol/L Potassium 4.7 3.3-5.1 mmol/L Chloride 107 96-108 mmol/L Carbon Dioxide 29 22-29 mmol/L Anion Gap 10 12-20 Blood Urea Nitrogen 15 9-16 mg/dL Creatinine 1.05 0.5-1.4 mg/dL Estimated Glomerular Filt Rate 51 Chronic Kidney Disease: Estimated GFR < 60 mL/min/1.73m2 Severe Kidney Disease: Estimated GFR < 15 mL/min/1.73m2 Glucose Random 101 60-115 mg/dL Calcium 9.7 8.4-10.2 mg/dL Bilirubin Total 0.4 0.0-1.0 mg/dL Aspartate Amino Transferase 29 5-31 U/L Alanine Aminotransferase 14 0-31 U/L Total Protein 7.4 6.5-8.0 g/dL Albumin Level 3.6 3.5-5.0 g/dL Alkaline Phosphatase 59 39-117 U/L Carbohydrate Antigen 19-9 Reviewed date:04/24/2024 11:20:45 AM Interpretation: Performing Lab:[address] [address] Notes/Report: Carbohydrate Antigen 19-9 49 <34 U/mL This test was performed using the Siemens chemiluminescent method. Values obtained from different assay methods cannot be used interchangeably. CA 19-9 levels, regardless of value, should not be interpreted as absolute evidence of the presence or absence of disease. THIS TEST WAS PERFORMED AT: [facility] [address] [place] [phone] abdomen w con Reviewed date:04/24/2024 11:20:45 AM Interpretation: Performing Lab: Notes/Report: [address] [address] [address] Scan Report Signed Patient: Kayla Cheung MR#: [id number] : 1945 Acct:[id number] Age/Sex: 78 / F ADM Date: 04/16/24 Loc: HO.CT Attending Dr: Demetrius Cote MD Ordering Physician: Demetrius Cote MD Date of Service: 04/16/24 Procedure(s): CT abdomen w IV con Accession Number(s): [id number] cc: Demetrius Cote MD EXAMINATION: CT ABDOMEN WITH CONTRAST CLINICAL INFORMATION: Neoplasm of pancreas. COMPARISON: CT abdomen dated October 14, 2019. TECHNIQUE: Contiguous axial thin section helical images of the abdomen were performed following the administration of oral contrast and 85 mL of Omnipaque 350 intravenous contrast. The data set was reformatted in the coronal and sagittal planes and reviewed on an independent workstation. This CT examination was performed using dose optimization techniques as appropriate, variously including the following: *Automated exposure control *Adjustment of mA and/or kV according to patient size (this includes techniques or standardized protocols for targeted exams where dose is matched to indication/reason for exam; i.e. extremities or head) *Use of iterative reconstruction technique DLP: 201 mGy-cm FINDINGS: LUNG BASES: There is a 3 mm groundglass nodule within the right lower lobe seen best on image #3, series #7. There is a 5 mm nodule within the left lower lobe seen best on image #21, series #6. This nodule appears similar to that seen on the October 14, 2019 CT abdomen. LIVER, GALLBLADDER, AND BILIARY TREE: There is a low-attenuation lesion within the right lobe of the liver measuring 3.3 x 2.5 cm in the axial plane. There appears to be peripheral nodular enhancement suggesting that this could be a hemangioma. In retrospect, this lesion was present on the October 14, [address] abdomen. It is poorly defined on this examination due to the lack of intravenous contrast, however. A direct comparison is difficult. The gallbladder is contracted. There is no intrahepatic biliary ductal dilation. PANCREAS: There is a heterogeneous, partially solid, partially cystic lesion involving the head of the pancreas. The lesion measures 2.6 x 1.6 cm in the axial plane. On the prior examination this lesion measured 3.4 x 2.1 cm. There is now diffuse, moderate to severe dilation of the pancreatic duct. There is atrophy of the pancreatic parenchyma. SPLEEN: The spleen is not identified. It has presumably been removed. ADRENAL GLANDS AND KIDNEYS: The adrenal glands are normal in appearance. The right kidney is normal in size and attenuation. There is no right-sided hydronephrosis. There is a stable 2.3 cm lesion within the upper pole of the left kidney. 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 BOWEL LOOPS: The small bowel and colon are normal in caliber. LYMPH NODES: Numerous subcentimeter mesenteric lymph nodes in the upper left abdomen are redemonstrated. VASCULAR: There is no abdominal aortic aneurysm. There is mild calcific atherosclerotic disease throughout the aorta and iliac arteries. BONES: There is severe degenerative disc disease and facet arthropathy at L3-4, similar to slightly worse than on the prior examination. The patient is status post vertebral body augmentation at T11 and T12. There is kyphotic deformity at this level. CT/CT abdomen w IV con IMPRESSION: 1. There is a heterogeneous, partially solid, partially cystic lesion involving the head of the pancreas. The lesion measures 2.6 x 1.6 cm in the axial plane. On the prior examination this lesion measured 3.4 x 2.1 cm. There is now diffuse, moderate to severe dilation of the pancreatic duct. There is atrophy of the pancreatic parenchyma. 2. There is a low-attenuation lesion within the right lobe of the liver measuring 3.3 x 2.5 cm in the axial plane. There appears to be peripheral nodular enhancement suggesting that this could be a hemangioma. In retrospect, this lesion was present on the October 14, [address] abdomen. It is poorly defined on this examination due to the lack of intravenous contrast, however. A direct comparison is difficult. 3. There is a stable 2.3 cm lesion within the upper pole of the left kidney. 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 4. Numerous subcentimeter mesenteric lymph nodes in the upper left abdomen are redemonstrated. 5. There is a 3 mm groundglass nodule within the right lower lobe seen best on image #3, series #7. There is a 5 mm nodule within the left lower lobe seen best on image #21, series #6. This nodule appears similar to that seen on the October 14, 2019 CT abdomen. According to the UPDATED 2017 Fleischner Society recommendations, the advised follow-up imaging for a single subsolid nodule <6 mm is: No routine follow-up is needed. Fleischner guidelines were followed. Electronically signed by: Horace Park DO 04/17/2024 02:50 PM EST Dictated By: Horace Park Jr, DO Signed By: <Electronically signed by Horace Park Jr DO in OV> 04/17/24 1450 DD/ 1508 TD/TT: 04/16/24 1525 Cloth Sander: BERT [place] [address] CT Scan Report Signed Patient: Kayla Cheung MR#: [id number] : 1945 Acct:[id number] Age/Sex: 78 / F ADM Date: 04/16/24 Loc: HO.CT Attending Dr: Demetrius Cote MD Ordering Physician: Demetrius Cote MD Date of Service: 04/16/24 Procedure(s): CT abdomen w IV con Accession Number(s): [id number] cc: Demetrius Cote MD EXAMINATION: CT ABDOMEN WITH CONTRAST CLINICAL INFORMATION: Neoplasm of pancreas. COMPARISON: CT abdomen dated Oct. TECHNIQUE: Contiguous axial thi n section helical images of the abdomen were performed following the administration of oral contrast and 85 mL of Omnipaque 350 intravenous contrast. The data set was reformatted in the coronal and sagittal planes and reviewed on an independent workstation. This CT examination was performed using dose optimization techniques as appropriate, various ly including the following: *Automated exposure control *Adjustment of mA and/or kV according to patient size (this includes techniques or standardized protocols for targeted exams where dose is matched to indication/reason for exam; i.e. extremities or head) *Use of iterative reconstruction technique DLP: 201 mGy-cm FINDINGS: LUNG BASES: There is a 3 mm groundglass nodule within the right lower lobe seen best on im age #3, series #7. There is a 5 mm nodule within the left lower lobe seen best on image #21, series #6. This nodule appears similar to t hat seen on the October 14, 2019 CT abdomen. LIVER, GALLBLADDER, AND BILIARY TREE: There is a low-attenuation lesion within the right lob e of the liver measuring 3.3 x 2.5 cm in the axial plane. There appears to be peripheral nodular enhancement suggesting that this could be a hemangioma. In retrospect, this lesion was present on the October 14, [address] abdomen. It is poorly defined on this examination due to the lack of intravenous contrast, however. A direct comparison is difficult. The gallbladder is contracted. There is no intrahepatic bili elkin ductal dilation. PANCREAS: There is a heterogeneous, partially solid, partially cystic lesion involving the head of the pancreas. The lesion measures 2.6 x 1.6 cm in the axial plane. On the prior examination this lesion measured 3.4 x 2.1 c m. There is now diffuse, moderate to severe dilation of the pancreatic duct. There is atrophy of the pancreatic parenchyma. SPLEEN: The spleen i s not identified. It has presumably been removed. ADRENAL GLANDS AND KIDNEYS: The adrenal glands are normal in appearance. The righ t kidney is normal in size and attenuation. There is no right-sided hydronephrosis. There is a stable 2.3 cm lesion within the upper jovanna e of the left kidney. 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 BOWEL LOOPS: The sma ll bowel and colon are normal in caliber. LYMPH NODES: Numerou s subcentimeter mesenteric lymph nodes in the upper left abdomen are redemonstrated. VASCULAR: There is n o abdominal aortic aneurysm. There is mild calcific atherosclerotic dise ase throughout the aorta and iliac arteries. BONES: There is edwardo re degenerative disc disease and facet arthropathy at L3-4, similar to slightly worse than on the prior examination. The patient is status po st vertebral body augmentation at T11 and T12. There is kyphotic deformity at this level. CT/CT abdomen w IV con IMPRESSION: 1. There is a heterogeneous, partially solid, partially cystic lesion involving the head o f the pancreas. The lesion measures 2.6 x 1.6 cm in the axial plane. On the prior examination this lesion measured 3.4 x 2.1 cm. There is now diffuse, moderate to severe dilation of the pancreatic duct. The re is atrophy of the pancreatic parenchyma. 2. There is a low-attenuation lesion within the right lobe of the liver measuring 3.3 x 2.5 cm in the axial plane. There appears to be peripheral nodular enhancement suggesting that this could be a hemangioma. In retrospect, this lesion was present on the October 14, [address] abdom en. It is poorly defined on this examination due to the lack of intraven ous contrast, however. A direct comparison is difficult. 3. There is a stable 2.3 cm lesion within the upper pole of the left kidney. 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 4. Numerous subcentimeter mesenteric lymph nodes in the upper left abdomen are redemonstrated. 5. There is a 3 mm groundglass nodule within the right lower lobe seen best on image #3, series #7. There is a 5 mm nodule within the left lower lobe seen best on image #21, series #6. This nodule appears similar to that seen on the October 14, 2019 CT abdomen. According to the UPDATED 2017 Fleischner Society recommendations, the advised follow-up imaging for a single subsolid nodule <6 mm is: No routine follow-up is needed. Fleischner guideline s were followed. Electronically hamida d by: Horace Park DO 04/17/2024 02:50 PM [facility] Dictated By: Horace Park Jr, DO Signed By: <Electronically signed by Horace Park Jr, in OV> 04/17/24 1450 DD/ 1508 TD/TT: 04/16/24 1525 Cloth Sander: BERT XR lumbar spine 2-3V Reviewed date:06/24/2024 03:42:39 PM Interpretation: Performing Lab: Notes/Report: [address] [address] XRay Report Signed Patient: Kayla Cheung MR#: [id number] : 1945 Acct:[id number] Age/Sex: 79 / F ADM Date: 06/24/24 Loc: HO.ED Attending Dr: Ordering Physician: Generic ED Physician Date of Service: 06/24/24 Procedure(s): XR lumbar spine 2-3V Accession Number(s): [id number] cc: Demetrius Cote MD; Generic ED Physician EXAMINATION: XR LUMBOSACRAL SPINE CLINICAL INFORMATION: pain x 1 month COMPARISON: 10/17/2022. TECHNIQUE: Three views of the lumbosacral spine. FINDINGS: There is mild to moderate levoconvex scoliosis, apex at L3. There is a normal lordosis. Superior endplate 30% compression fracture of L2, new from prior, appears possibly subacute. Chronic T11 and T12 compression fractures with vertebroplasty cement. No additional fracture or suspicious bone lesion. There is a 3 mm degenerative appearing retrolisthesis of L2 on L3 and anterolisthesis of L3 on L4. Severe disc degeneration L3-4. There is otherwise mild to moderate disc degeneration. Facet degeneration most significant spanning L3-S1. XR/XR lumbar spine 2-3V IMPRESSION: 1. Superior endplate 30% compression fracture of L2, new from prior, appears possibly subacute. 2. Chronic T11 and T12 compression fractures with vertebroplasty cement. 3. Mild to moderate levoconvex scoliosis and multilevel advanced spondylosis, most significant at L3-4. Electronically signed by: Tristin Posadas MD 06/24/2024 09:28 AM [facility] Dictated By: Tristin Posadas MD Signed By: <Electronically signed by Tristin Posadas MD in OV> 06/24/2428 DD/ 3 TD/TT: 06/24/2414 Cloth Sander: [place] [address] XRay Report Signed Patient: Kayla Cheung MR#: [id number] : 1945 Acct:[id number] Age/Sex: 79 / F ADM Date: 06/24/24 Loc: HO.ED Attending Dr: Ordering Physician: Generic ED Physician Date of Service: 06/24/24 Procedure(s): XR lum bar spine 2-3V Accession Number(s): [id number] cc: Demetrius Cote MD; Generic ED Physician EXAMINATION: XR LUMBOSACRAL SPINE CLINICAL INFORMATION: pain x 1 month COMPARISON: 10/17/2022. TECHNIQUE: Three views of the lumbosacral spine. FINDINGS: There is mild to moderate levoconvex scoliosis, apex at L3. There is a normal lordosis. Superior endplate 30 % compression fracture of L2, new from prior, appears possibly subacute. Chronic T11 and T12 compression fractures with vertebroplasty cement. No additional fractu re or suspicious bone lesion. There is a 3 mm degenerative appearing retrolisthesis of L2 on L3 and anterolisthesis of L 3 on L4. Severe disc degeneration L3-4. There is otherwise mild to moderate disc degeneration. Facet degeneration m ost significant spanning L3-S1. XR/XR lumbar spine 2-3V IMPRESSION: 1. Superior endplate 30% compression fracture of L2, new from prior, appears possibly subacute. 2. Chronic T11 and T 12 compression fractures with vertebroplasty cement. 3. Mild to moderate levoconvex scoliosis and multilevel advanced spondylosis, most significant at L3-4. Electronically hamida d by: Tristin Posadas MD 06/24/2024 09:28 AM [facility] Dictated By: Tristin Posadas MD Signed By: <Electronically signed by Tristin Posadas MD in OV> 06/24/2428 DD/ 3 TD/TT: 06/24/24913 Cloth Sander: XR sacrum coccyx min 2V Reviewed date:06/24/2024 03:42:39 PM Interpretation: Performing Lab: Notes/Report: [address] [address] XRay Report Signed Patient: Kayla Cheung MR#: [id number] : 1945 Acct:[id number] Age/Sex: 79 / F ADM Date: 06/24/24 Loc: HO.ED Attending Dr: Ordering Physician: Generic ED Physician Date of Service: 06/24/24 Procedure(s): XR sacrum coccyx min 2V Accession Number(s): [id number] cc: Demetrius Cote MD; Generic ED Physician EXAMINATION: XR SACRUM AND COCCYX CLINICAL INFORMATION: pain x 1 month COMPARISON: None available. TECHNIQUE: 2 views of the sacrum and 2 views of the coccyx were obtained. FINDINGS: There are no fractures. No focal bone lesion. There are mild degenerative changes in both SI joints. Imaging of the coccyx is unreliable due to a large degree of anatomic variability in this region. XR/XR sacrum coccyx min 2V IMPRESSION: Normal sacrum and coccyx. Mild arthritis in both SI joints. Electronically signed by: Tristin Posadas MD 06/24/2024 09:22 AM EST RP Dictated By: Tristin Posadas MD Signed By: <Electronically signed by Tristin Posadas MD in OV> 06/24/24921 DD/ 3 TD/TT: 06/24/24913 Cloth Sander: [place] [address] XRay Report Signed Patient: Kayla Cheung MR#: [id number] : 1945 Acct:[id number] Age/Sex: 79 / F ADM Date: 06/24/24 Loc: .ED Attending Dr: Ordering Physician: Generic ED Physician Date of Service: 06/24/24 Procedure(s): XR sac rum coccyx min 2V Accession Number(s): [id number] cc: Demetrius Cote MD; Generic ED Physician EXAMINATION: XR SACRUM AND COCCYX CLINICAL INFORMATION: pain x 1 month COMPARISON: None available. TECHNIQUE: 2 views of the sacru m and 2 views of the coccyx were obtained. FINDINGS: There are no fractur es. No focal bone lesion. There are mild degenerative changes in both SI joints. Imaging of the coccy x is unreliable due to a large degree of anatomic variability in this region. XR/XR sacrum coccyx min 2V IMPRESSION: Normal sacrum and coccyx. 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 Electronically hamida d by: Tristin Posadas MD 06/24/2024 09:22 AM EST RP Dictated By: Tristin Posadas MD Signed By: <Electronically signed by Tristin Posadas MD in OV> 06/24/24921 DD/ 3 TD/TT: 06/24/24913 Cloth Sander: Complete Blood Count Auto Di ff Reviewed date:07/21/2024 12:18:28 PM Interpretation: Performing Lab:[facility], [address] [place] [phone] Notes/Report: White Blood Count 7.5 4.8-10.8 X10*3/uL Red Blood Count 3.52 4.20-5.50 X10*6/uL Hemoglobin 10.9 12.0-16.0 g/dl Hematocrit 33.5 37.0-47.0 % Mean Corpuscular Volume 95.2 80.0-98.0 fL Mean Corpuscular Hemoglobin 31.0 27.0-33.0 pg Mean Corpuscular HGB Conc 32.5 31.0-35.0 g/dl Red Cell Distribution Width 15.1 11.0-16.0 % Platelet Count 173 160-400 X10*3/uL Mean Platelet Volume 11.0 9.4-12.3 fL Neutrophils Percent Auto 66.9 45-73 % Imm Gran Pct Auto 0.4 0.0-0.4 % Lymphocytes Percent Auto 12.6 20-40 % Monocytes Percent Auto 14.2 2-11 % Eosinophils Percent Auto 5.1 0-4 % Basophils Percent Auto 0.8 0-2 % NRBC Pct Auto 0.3 0.0-0.2 /100WBC Neutrophils Absolute Auto 5.0 2.0-8.3 x10*3/u L Imm Gran Abs Auto 0.03 0.00-0.03 X10*3/uL Lymphocytes Absolute Auto 1.0 1.2-4.9 X10*3/u L Monocytes Absolute Auto 1.1 0.1-1.2 X10*3/uL Eosinophils Absolute Auto 0.4 0.0-0.4 X10*3/u L Basophils Absolute Auto 0.1 0.0-0.2 X10*3/uL NRBC Abs Auto 0.020 0.0-0.012 X10*3/uL Prothrombin Time INR Reviewed date:07/21/2024 12:18:28 PM Interpretation: Performing Lab:[facility], [address] [place] [address] Notes/Report: Prothrombin Time 12.2 10.9-12.4 SEC INTERNATIONAL NORM RATIO 1.0 0.9-1.1 INTERNATIONAL NORMALIZED RATIO (INR) REFERENCE RANGES [...] mechanical prosthetic heart valves: 2.5 - 3.5 Partial Thromboplastin Time Reviewed date:07/21/2024 12:18:28 PM Interpretation: Performing Lab:[facility], [address] [place] [phone] Notes/Report: Partial Thromboplastin Time 28.9 26.0-36.8 SEC For information regarding the monitoring of direct thrombin inhibitors, please refer to Pharmacy. Basic Metabolic Panel Reviewed date:07/21/2024 12:18:28 PM Interpretation: Performing Lab:[address] [address] Notes/Report: Sodium 132 135-145 mmol/L Potassium 4.2 3.3-5.1 mmol/L Chloride 107 96-108 mmol/L Carbon Dioxide 18 22-29 mmol/L Anion Gap 11 12-20 Blood Urea Nitrogen 19 9-16 mg/dL Creatinine 0.83 0.5-1.4 mg/dL Creatinine Clr Calc Pharmacy 48.6 Provided height and weight: 154.94 cm, 66.224 kg. eGFR (calculated from the MDRD study equation) and eCrCl (calculated from the Cockcroft-Gault equation) are based on different parameters and may not yield comparable results. If eCrCl result is absurd, please check patient's height/weight. Estimated Glomerular Filt Rate > 60 Chronic Kidney Disease: Estimated GFR < 60 mL/min/1.73m2 Severe Kidney Disease: Estimated GFR < 15 mL/min/1.73m2 Glucose Random 89 60-115 mg/dL Calcium 8.2 8.4-10.2 mg/dL IR kyphoplasty lumbar Reviewed date:07/22/2024 08:48:26 PM Interpretation: Performing Lab: Notes/Report: [address] [address] Interventional Radiology Rpt Signed Patient: Kayla Cheung MR#: [id number] : 1945 Acct:[id number] Age/Sex: 79 / F ADM Date: 07/20/24 Loc: HO.SSS Attending Dr: Demetrius Cote MD Ordering Physician: Demetrius Cote MD Date of Service: 07/20/24 Procedure(s): IR kyphoplasty lumbar Accession Number(s): [id number] cc: Demetrius Cote MD; Physician,Unknown Examination: L2 kyphoplasty. CLINICAL INDICATION: Acute L2 compression fracture with significant pain ambulating. Osteopenia. COMPARISON: Bone scan 07/09/2024 and lumbar spine 06/24/2024. TECHNIQUE: Following explaining fluoroscopy-guided L2 kyphoplasty detail procedure, benefits in risk aerated and consent was obtained. Patient was placed prone on the fluoroscopy IR table and L2 pedicles were localized and the skin and markers placed. The marked area was cleaned and draped in usual sterile manner with 2% chlorhexidine solution. 1% lidocaine was injected overlying the right pedicle skin marker. A 22-gauge needle was advanced to the right pedicle and 0.25% Marcaine administered. Through a small skin incision 18-gauge Kyphon needle was advanced from the skin through right pedicle into posterior one thirds of L2 vertebra. A second needle was advanced in a similar fashion to the left pedicle. The stylets were removed and hand drill was advanced and tract created. Subsequently curette was advanced and bone marrow was macerated. Curette was removed and high tensile balloons were inserted through the right and left needles. The balloons were inflated for 5 minutes and subsequently deflated and removed. Premixed polymethyl methacrylate was injected through right followed by left needles under lateral and AP continuous fluoroscopy. After achieving adequate amount of cement concentration and observing no cement leak, both needles were withdrawn and complete hemostasis achieved at puncture site. Simple dressing was applied at the puncture site. 1 to 2 mL of blood loss was noted. Conscious sedation was given during the exam. Patient was monitored by our IR nursing and IR physician during the exam. FINDINGS/ IR/IR kyphoplasty lumbar IMPRESSION: There is moderate L2 compression fractures with loss of 25- 30% of vertebral height. There is old T12 and T11 wedge fractures with cement augmentation. Successful bi pedicular approach L2 kyphoplasty performed under fluoroscopy without immediate complications. Patient was sent to CT postprocedure. Electronically signed by: Idris Perez MD 07/22/2024 03:26 PM EDT RP Dictated By: Idris Perez MD Signed By: <Electronically signed by Idris Perez MD in OV> 07/22/24 1526 DD/ 1330 TD/TT: 07/20/24 1549 Cloth Sander: [place] [id number] Interventional Radiology Rpt Signed Patient: Kayla Cheung MR#: [id number] : 1945 Acct:[id number] Age/Sex: 79 / F ADM Date: 07/20/24 Loc: HO.[facility] Attending Dr: Demetrius Cote MD Ordering Physician: Demetrius Cote MD Date of Service: 07/20/24 Procedure(s): IR kyphoplasty lumbar Accession Number(s): [id number] cc: Demetrius Cote MD; Physician,Unknown Examination: L2 kyphoplasty. CLINICAL INDICATION: Acute L2 compression fracture with significant pain ambulating. Osteopenia. COMPARISON: Bone sca n 07/09/2024 and lumbar spine 06/24/2024. TECHNIQUE: Following explaining fluoroscopy-guided L2 kyphoplasty detail procedure, benefits in risk aerated and consent was obtained. Patient was placed prone on the fluoroscopy IR table and L2 pedicles were localized and t he skin and markers placed. The marked area was cleaned and draped i n usual sterile manner with 2% chlorhexidine solution. 1% lidocai ne was injected overlying the right pedicle skin marker. A 22-gauge needle was advanced to the right pedicle and 0.25% Marcaine administere d. Through a small skin incision 18-gauge Kyphon needle was advanced from the skin through right pedicle into posterior one thirds of L2 vertebra. A second needle was advanced in a similar fashion to the left pedicle. The stylets were removed and hand drill was advanced and tra ct created. Subsequently curette was advanced and bone marrow was macerated. Curette was removed and high tensile balloons were insert ed through the right and left needles. The balloons were inflated for 5 minutes and subsequently deflated and removed. Premixed polymethyl methacrylate was injected through right followed by left needles under lateral and AP continuous fluoroscopy. After achieving adequate amount of cement concentration and observing no cement leak, both needles were withdrawn and complete hemostasis achieved at puncture site. Simple dressing was applied at the puncture site. 1 to 2 mL of blood loss was noted. Conscious sedation was given during the exam. Patient was monitored by our IR nursing and IR physician during the exam. FINDINGS/ IR/IR kyphoplasty lumbar IMPRESSION: There is moderate L2 compression fractures with loss of 25- 30% of vertebral height. There is old T12 and T11 wedge fractures with cement augmentation. Successful bi pedicu lar approach L2 kyphoplasty performed under fluoroscopy without immediate complications. Patient was sent to CT postprocedure. Electronically hamida d by: Idris Perez MD 07/22/2024 03:26 PM EDT RP Dictated By: Idris Perez MD Signed By: <Electronically signed by Idris Perez MD in OV> 07/22/24 1526 DD/ 1330 TD/TT: 07/20/24 1549 Cloth Sander: [facility] [place] [place] Reason For Referral Reason mass head of pancrea s pancreatic atrophy new dilation of pancreatic duct evaluate and treat Diagnosis 1 Pancreatic mass (K86 .9) Referral Organization Demetrius Cote III, MD Referring Provider First Name Demetrius Referring Provider Last Name Kera Referring Provider Speciality Internal M edicine Referred Organization [facility] Referred Provider [facility] Referred Address [address] [place] [phone], Referred Provider Specialty Gastroentero logy General Notes Magdalena Greenwood CMA 04/27 04:21:07 PM >ref/demo/progress notes/labs/x rays faxed to Dr Oseguera office at [phone] per Candido at the office .Geremias Amber 05/01/2024 02:51:36 PM > Spoke with Cayla at [facility], she stated they did receive the referral and the referral goes to scheduling department and they reach out to the patient to schedule the appointment directly. I was unable to schedule, Magdalena Greenwood CMA 05/07/2024 02:18:04 PM >Called Dr Oseguera office spoke to Candido she stated it was noted that the referral did not come with copy of Ct Scan report and they needed this faxed to them at [phone]. This was done today . ATTN: Timo Moreland Suzanne BRINE WELL OPERATOR 05/11/2024 10:44:25 AM > Spoke to Tosha at Dr Oseguera office they stated they just had the images from uploaded so Dr Oseguera can review gastro then will call patient within next few days with appt , Magdalena Greenwood CMA 05/14/2024 11:48:53 AM >called dr Oseguera office . Dr Oseguera is doing an EUS on 06/18/2024 Referral Priority Routine Referral Appointment Date 06/18/2024 Reason Evaluate and Treat Diagnosis 1 Wedge [...] M edicine Referred Provider [facility] Referred Provider Specialty Unknown General Notes Shana Archuleta 06/08/2024 01:34:22 PM > referral faxed Referral Priority Routine Referral Appointment Date 06/10/2024 Medications Medication SIG (Take, Route, Frequency, Duration) Notes Start Date End Date Status Simvastatin 40 MG TAKE 1 TABLET EVERY EVENING Active Amiodarone HCl 200 MG TAKE 2 TABLETS BY MOUTH TWICE DAILY FOR 12 DAYS THEN TAKE 1 TABLET BY MOUTH DAILY Oral Active Gabapentin 300 MG 1 capsule Orally thr ee times a day for 10 days 06/23/2024 Active traZODone HCl 150 MG TAKE 1 TABLET BY MO UTH EVERY NIGHT AT BEDTIME Active dexAMETHasone 2 MG 1 tablet Orally twic e a day for 10 days 06/23/2024 Active FeroSul 325 (65 Fe) MG TAKE 1 TABLET BY MOUTH EVERY DAY Active Levothyroxine Sodium 100 MCG TAKE 1 TABLET DAILY Active Furosemide 20 MG TAKE 1 TABLET BY JOSÉ TH EVERY OTHER DAY Oral Active levoFLOXacin 500 MG 1 tablet Orally Once a day 09/10/2023 Active Melatonin 1 MG 1 tablet at bedtime as needed Orally Once a day Active Metoprolol Tartrate 25 MG TAKE 1 TABLET 2 TIMES DAILYWITH FOOD Active Calcium Carbonate 1500 (600 Ca) MG 1 tablet with food Orally Twice a day for 30 days Active Alendronate Sodium 70 MG TAKE 1 TABLET B Y MOUTH 1 TIME A WEEK 30 MINUTES BEFORE FIRST FOOD OR BEVERAGE OR MEDICINE OF THE DAY WITH WATER Active Eliquis 5 MG 1 tablet Orally Twic e a day Active D3-1000 25 MCG (1000 UT) 1 capsule Orall y Once a day Active Aspirin 81 81 MG 1 tablet Orally Once a day Active Immunizations Vaccine Route Administration Date Status Comme nts Influenza Unknown 03/05/2013 Administered Influenza IM Intramuscular 03/11/2014 Administered Pneumococcal IM Intramuscular 07/23/2014 Administered Influenza IM Intramuscular 02/16/2015 Administered Influenza IM Intramuscular 03/14/2016 Administered Zostavax Unknown 11/20/2016 Administered Influenza no Preserv 3 and > IM Intramuscular 03/07/2017 Administered COVID- 19 Vaccine IM Intramuscular 03/10/2021 Administered covid vaccine Social History Tobacco Use: Social History Observation Description Date Details (start date - stop date) Former Smoker NA - NA Sex Assigned At : Social History Observation Description Sex Assigned At Female Tobacco Use/Smoking Question Answer Notes Patient is a former smoker How long has it been since you last smoked? > 10 years Additional Findings: Tobacco Non-User Ex-cigaret te smoker Alcohol Screen Question Answer Notes Did you have a drink containing alcohol in the p ast year? No Points 0 Interpretation Negative Problems Problem Type SNOMED Code ICD Code Onset Dates Problem Status W/U Status Risk Notes Problem 5128333 Former smoker (Z87.891) Active confirmed She is highly motivated not to smoke. We have discussed strategies for maintenance of abstinence in times of stress and illness. Problem 989963622 Obesity (E66.9) Active confirmed She has continue her efforts at weight loss and gain prevention. We reviewed her weight loss strategy today. Problem 935975866 Overweight (E66.3) Active confirmed She has lost an additional 9 pounds. She was continued on her current weight loss program. We reviewed her diet and nutrition. She is doing quite well. Problem Malignant neoplasm of female breast (837752434) Malignant neoplasm of unspecified site of right female breast (C50.911) Active confirmed Is no sign of recurrence or relapse her new primary today. Problem Hypothyroidism (23215021) Hypothyroidism, unspecified (E03.9) Active confirmed She has been compliant with her medication. She appears to be euthyroid today. No change in her regimen was made. Problem 236796792 Calculus of gallbladder without cholecystitis without obstruction (K80.20) Active confirmed Her gallstones were asymptomatic and now is no sign of cholecystitis today. She will be observed cautiously. Problem Sicca syndrome (11511836) Sicca syndrome, unspecified (M35.00) Active confirmed The oral drynes s remains unchanged. She has been compliant with frequent visits to her dentist. Problem Atrial fibrillation (37730045) Atrial fibrillation, unspecified (I48.91) Active confirmed Her heart rate is well controlled today on no change in her regimen was made. Problem 512650654 Anticoagulated (Z79.01) Active confirmed . There is no contraindication to this patient remaining on anticoagulation during the procedure. I have spoken to the surgical territory manager at the ophthalmologists office. They do not require the anticoagulation to be held. Problem 920864138 Hyperlipidemia type II (E78.0) Active confirmed Her lipids h ave been well controlled. Her fasting lipid profile will be ordered periodically. No change in her regimen was needed today. Problem 95501171 Atrial fibrillation (I48.91) Active confirmed She has been well controlled lately. She has been compliant with all of her medications. She was in a regular rhythm today Problem 139046244 Hodgkins disease (C81.90) Active confirmed There is no adenopathy. She continues in a durable remission. Problem 8468252 Psoriasis (L40.9) Active confirmed Her psoriasis i s very mild and does not require treatment at this time. Problem 315306090 Nonrheumatic aortic valve stenosis (I35.0) Active confirmed Her exercise tolerance is improved and she has no long-term side effects from repair of the aortic valve. He is under the care of the ad setter and compliant with her therapies. Problem 75542622 Hypothyroid (E03.9) Active confirmed Her TSH has bee n slightly elevated. If it remains this way on repeat her dose will be adjusted. Problem 780932279 Wedge compression fracture of T11 vertebra (S22.080A) Active confirmed Her pain has become minimally but it can be reproduced with percussion. No change in her regimen is needed. Problem 359714674 Marginal zone lymphoma (C85.80) Active confirmed There was no enlargement of the salivary gland or adenopathy or splenomegaly. She continues in a durable remission Problem 35676036 Sjoegren syndrome (M35.00) Active confirmed This problem is well controlled with oral medication. 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 No change in her regimen was needed. 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 The left breast is unremarkable. Problem Coagulopathy (51164877) Coagulopathy (D68.9) Active confirmed She has a history of pulmonary embolism and atrial fibrillation and is chronically anticoagulated. She has had no episodes of bleeding. She has had no further episodes of arterial clotting or venous thromboembolism. 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 A small hypodense lesion is seen measuring 1.8 x 1.1 cm which is unchanged. It will be followed radiographically at this time. Problem Pancreatic mass (443941333) Pancreatic mass (K86.9) Active confirmed The CA-19-9 is fluctuating but trending upward. On the current CT scan the pancreatic mass has become smaller and the nodules in the liver are stable. However, the pancreatic duct is dilated and there are dilated intrahepatic bile ducts associated with pancreatic atrophy. She will need referral to GI for evaluation and diagnosis. She may need to have surgery on the pancreas. Problem Pure hypercholesterole tha (992434783) Hyperlipidemia type II (E78.01) Active confirmed Her most recent fasting lipid profile shows good control of her lipids. No change in her regimen as needed. Problem 598283399 Osteopenia after menopause (M81.0) Active confirmed She will have periodic bone densities. I recommended Os-Samy 500 mg twice a day. The thousand units of vitamin D daily. She will be evaluated periodically for alendronate. Problem hypercholesterole tha (disorder) (53844544) Hypercholestere tha (E78.00) Active confirmed Current fasting lipid profile shows good control of her lipids. Problem 07755483 Chronic congestive heart failure, unspecified heart failure type (I50.9) Active confirmed Her CHF is now well compensated and she is compliant with her medications. Cardiology follow-up has been arranged. Problem 5846944014024 S/P TAVR (transcatheter aortic valve replacement) (Z95.2) Active confirmed Her valve continues to work appropriately. No murmurs heard. Vital Signs Heart Rate 89 /min 03/30/2024 Temperature 99.1 degrees Fahrenheit 03/30/2024 Blood pressure diastolic 68 mm Hg 03/30/2024 Height 63 in 04/24/2024 Blood pressure systolic 138 mm Hg 03/30/2024 Weight 158 lbs 04/24/2024 BMI 27.99 kg/m2 04/24/2024 Encounters Encounter Location Date Provider Diagnosis Demetrius Cote III, MD [address] [place] [address] [place] [address] 08/28/2023 Demetrius Cote Hodgkins disease C81 .90 [...] failure type I50.9 Demetrius Cote III, MD [address] [place] [address] [place] [address] 09/09/2023 Demetrius Cote Hodgkins disease C81 .90 ; Obesity E66.9 ; Atrial fibrillation I48.91 ; Hypothyroid E03.9 ; Hyperlipidemia type II E78.01 ; Acute asthmatic bronchitis J45.909 and Former smoker Z87.891 Demetrius Cote III, MD [address] [place] [address] [place] [address] 09/13/2023 Demetrius Cote Hodgkins disease C81 .90 [...] asthmatic bronchitis J45.909 Demetrius Cote III, MD [address] [place] [address] [place] [address] 11/25/2023 Demetrius Cote Hodgkins disease C81 .90 ; 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 ; 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 ; Pancreatic mass K86.9 ; Overweight E66.3 ; Former smoker Z87.891 ; Wedge compression fracture of T11 vertebra S22.080A ; 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 ; Sjoegren syndrome M35.00 ; Psoriasis L40.9 ; Angiomyolipoma D17.9 ; Osteopenia after menopause M81.0 ; Chronic congestive heart failure, unspecified heart failure type I50.9 ; S/P TAVR (transcatheter aortic valve replacement) Z95.2 ; Hypercholesteremia E78.00 ; Hypothyroid E03.9 and Atrial fibrillation 427.31 Demetrius Cote III, MD [address] [place] [address] [place] [address] 03/30/2024 Demetrius Cote Hodgkins disease C81 .90 ; Chronic congestive heart failure, unspecified heart failure type I50.9 ; 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 ; Pancreatic mass K86.9 ; Former smoker Z87.891 ; Psoriasis L40.9 ; Osteopenia after menopause M81.0 ; Sicca syndrome, unspecified M35.00 ; Hypothyroidism, unspecified E03.9 ; Malignant neoplasm of unspecified site of right female breast C50.911 ; Atrial fibrillation, unspecified I48.91 ; S/P TAVR (transcatheter aortic valve replacement) Z95.2 and Anticoagulated Z79.01 Demetrius Cote III, MD [address] [place] [address] [place] [address] 04/24/2024 Demetrius Cote Hodgkins disease C81 .90 ; Pancreatic mass K86.9 ; Former smoker Z87.891 ; Obesity E66.9 ; 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 ; Atrial fibrillation I48.91 ; Hypothyroid E03.9 ; Wedge compression fracture of T11 vertebra S22.080A ; 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 ; Sjoegren syndrome M35.00 and 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 Demetrius Cote III, MD [address] [place] [address] 08/26/2023 Demetrius Cote III, MD [address] [place] [address] [place] [address] 09/09/2023 Demetrius Cote III, MD [address] [facility] [facility] [place] [address] 09/10/2023 Demetrius Cote III, MD [address] [place] [address] [place] [address] 09/11/2023 Demetrius Cote III, MD [address] [place] [address] [place] [address] 09/12/2023 Demetrius Cote III, MD [address] [place] [address] [place] [address] 09/16/2023 Demetrius Cote III, MD [address] [place] [address] [place] [address] 09/19/2023 Demetrius Cote III, MD [address] [place] [address] [place] [address] 09/23/2023 Demetrius oCte III, MD [address] [place] [address] [place] [address] 02/07/2024 Demetrius Cote Pancreatic mass K86. 89 and Intraductal papillary mucinous neoplasm D49.0 Demetrius Cote III, MD [address] [place] [address] [place] [address] 04/27/2024 Demetrius Cote III, MD [address] [place] [address] [place] [address] 05/01/2024 Demetrius Cote III, MD [address] [place] [address] [place] [address] 06/08/2024 Demetrius Cote III, MD [address] [place] [address] [place] [address] 06/23/2024 Demetrius Cote III, MD [address] [place] [address] [place] [address] 06/23/2024 Demetrius Cote III, MD [address] [place] [address] [place] [address] 06/25/2024 Demetrius Cote III, MD [address] [place] [address] [place] [address] 07/01/2024 Demetrius Cote Wedge compression fr acture of T11 vertebra S22.080A ; Compression fracture of L2 vertebra, initial encounter S32.020A and History of osteopenia Z87.39 Demetrius Cote III, MD [address] [place] [address] [place] [address] 07/02/2024 Demetrius Cote III, MD [address] [place] [address] [place] [address] 07/03/2024 Demetrius Cote III, MD [address] [place] [address] [place] [address] 07/07/2024 Demetrius Cote Compression fracture of L2 vertebra, initial encounter S32.020A Demetrius Cote III, MD [address] [place] [address] [place] [address] 07/21/2024 Demetrius Cote Assessments Encounter Date Diagnosis (ICD Code) Assessment Notes T reatment Notes Treatment Clinical Notes 08/28/2023 Hodgkins disease (ICD-10 - C81.90) There [...] recurrent Hodgkin's or treatment related dysfunction. 09/13/2023 Hodgkins disease (ICD-10 - C81.90) There is no sign of recurrent Hodgkin's or treatment related dysfunction. 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 Radiation changes are demonstrated. There is one radiation tattoo over the sternum. 11/25/2023 Hodgkins disease (ICD-10 - C81.90) There is no sign of recurrent Hodgkin's or treatment related dysfunction. 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 The left breast is unremarkable. 03/30/2024 Hodgkins disease (ICD-10 - C81.90) There is no adenopathy. She continues in a durable remission. 03/30/2024 Chronic congestive heart failure, unspecified heart failure type (ICD-10 - I50.9) Her CHF is now well compensated and she is compliant with her medications. Cardiology follow-up has been arranged. 04/24/2024 Hodgkins disease (ICD-10 - C81.90) There is no adenopathy. She continues in a durable remission. 04/24/2024 Pancreatic mass (ICD -10 - K86.9) The CA-19-9 is fluctuating but trending upward. On the current CT scan the pancreatic mass has become smaller and the nodules in the liver are stable. However, the pancreatic duct is dilated and there are dilated intrahepatic bile ducts associated with pancreatic atrophy. She will need referral to GI for evaluation and diagnosis. She may need to have surgery on the pancreas. 02/07/2024 Pancreatic mass (ICD -10 - K86.89) 07/01/2024 Wedge compression fracture of T11 vertebra (ICD-10 - S22.080A) 07/07/2024 Compression fracture of L2 vertebra, initial encounter (ICD-10 - S32.020A) 08/28/2023 Obesity (ICD-10 - E66.9) She remains obese but has lost 1 pound. We discussed diet and nutrition. We made a plan for weight loss. 09/09/2023 Atrial fibrillation (ICD-10 - I48.91) She has been well controlled lately. She has been compliant with all of her medications. 09/13/2023 Former smoker (ICD-1 0 - Z87.891) She is highly motivated not to smoke. We have discussed strategies for maintenance of abstinence in times of stress and illness. 11/25/2023 Marginal zone lympho ma (ICD-10 - C85.80) There is no sign of recurrent disease on the current examination. 03/30/2024 Marginal zone lympho ma (ICD-10 - C85.80) There was no enlargement of the salivary gland or adenopathy or splenomegaly. She continues in a durable remission 04/24/2024 Former smoker (ICD-1 0 - Z87.891) She is highly motivated not to smoke. We have discussed strategies for maintenance of abstinence in times of stress and illness. 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 We have discussed strategies for maintenance of abstinence in times of stress and illness. 09/09/2023 Hypothyroid (ICD-10 - E03.9) Her TSH has been slightly elevated. If it remains this way on repeat her dose will be adjusted. 09/13/2023 Wedge compression fracture of T11 vertebra (ICD-10 - S22.080A) Her pain has become minimally but it can be reproduced with percussion. No change in her regimen is needed. 11/25/2023 Pancreatic mass (ICD -10 - K86.9) In October [address] scan of the abdomen showed no change in the 2.9 x 2.3 x 3.6 lobular mass in the head of the pancreas associated with mild dilatation of the pancreatic duct. Since May of this year the AST has gone from 28-37-180 and the MALT has gone from 23-41-174. I have ordered a repeat CT scan of the abdomen with contrast and repeat blood work with a CA-19-9, lipase, amylase, GGTP and liver function tests. 03/30/2024 Pancreatic mass (ICD -10 - K86.9) The abdominal examination was unremarkable. The CA 1990 has increased from 25-54. CT scan of the abdomen and pelvis has been ordered to assess the status of the pancreatic mass which is thought to be an intra-papillary mucin producing tumor. 04/24/2024 Obesity (ICD-10 - E66.9) She has continue her efforts at weight loss and gain prevention. We reviewed her weight loss strategy today. 07/01/2024 History of osteopeni a (ICD-10 - Z87.39) 08/28/2023 Wedge compression fracture of T11 vertebra (ICD-10 - S22.080A) Her pain has become minimally but it can be reproduced with percussion. No change in her regimen is needed. 09/09/2023 Hyperlipidemia type II (ICD-10 - E78.01) Her most recent fasting lipid profile shows good control of her lipids. No change in her regimen as needed. 09/13/2023 Marginal zone lympho ma (ICD-10 - C85.80) There was no sign of disease progression on today's examination and observation will continue. 11/25/2023 Overweight (ICD-10 - E66.3) She has lost an additional 9 pounds. She was continued on her current weight loss program. We reviewed her diet and nutrition. She is doing quite well. 03/30/2024 Former smoker (ICD-1 0 - Z87.891) She is highly motivated not to smoke. We have discussed strategies for maintenance of abstinence in times of stress and illness. 04/24/2024 Marginal zone lympho ma (ICD-10 - C85.80) There was no enlargement of the salivary gland or adenopathy or splenomegaly. She continues in a durable remission 08/28/2023 Right knee DJD (ICD- 10 - M17.9) The pain in her right knee is mild to moderate and unchanged. No change in her regimen was needed. 09/09/2023 Acute asthmatic bronchitis (ICD-10 - J45.909) She will be treated appropriately after the results of a chest x-ray are available. This will be done today. 09/13/2023 Sjoegren syndrome (ICD-10 - M35.00) This problem is well controlled with oral medication. 11/25/2023 Former smoker (ICD-1 0 - Z87.891) She is highly motivated not to smoke. We have discussed strategies for maintenance of abstinence in times of stress and illness. 03/30/2024 Psoriasis (ICD-10 - L40.9) Her psoriasis is very mild and does not require treatment at this time. 04/24/2024 Atrial fibrillation (ICD-10 - I48.91) She has been well controlled lately. She has been compliant with all of her medications. She was in a regular rhythm today 08/28/2023 Sjoegren syndrome (ICD-10 - M35.00) This problem is well controlled with oral medication. 09/09/2023 Former smoker (ICD-1 0 - Z87.891) She is highly motivated not to smoke. We have discussed strategies for maintenance of abstinence in times of stress and illness. 09/13/2023 Psoriasis (ICD-10 - L40.9) Her psoriasis is very mild and does not require treatment at this time. 11/25/2023 Wedge compression fracture of T11 vertebra (ICD-10 - S22.080A) Her pain has become minimally but it can be reproduced with percussion. No change in her regimen is needed. 03/30/2024 Osteopenia after menopause (ICD-10 - M81.0) She will have periodic bone densities. I recommended Os-Samy 500 mg twice a day. The thousand units of vitamin D daily. She will be evaluated periodically for alendronate. 04/24/2024 Hypothyroid (ICD-10 - E03.9) Her TSH has been slightly elevated. If it remains this way on repeat her dose will be adjusted. 08/28/2023 Psoriasis (ICD-10 - L40.9) Her psoriasis is very mild and does not require treatment at this time. 09/13/2023 Right knee DJD (ICD- 10 - M17.9) The pain in her right knee is mild to moderate and unchanged. No change in her regimen was needed. 11/25/2023 Right knee DJD (ICD- 10 - M17.9) The pain in her right knee is mild to moderate and unchanged. No change in her regimen was needed. 03/30/2024 Sicca syndrome, unspecified (ICD-10 - M35.00) The oral dryness remains unchanged. She has been compliant with frequent visits to her dentist. 04/24/2024 Wedge compression fracture of T11 vertebra (ICD-10 - S22.080A) Her pain has become minimally but it can be reproduced with percussion. No change in her regimen is needed. 08/28/2023 Marginal zone lympho ma (ICD-10 - C85.80) There was no sign of disease progression on today's examination and observation will continue. 09/13/2023 Hypothyroid (ICD-10 - E03.9) Her TSH has been slightly elevated. If it remains this way on repeat her dose will be adjusted. 11/25/2023 Sjoegren syndrome (ICD-10 - M35.00) This problem is well controlled with oral medication. 03/30/2024 Hypothyroidism, unspecified (ICD-10 - E03.9) She has been compliant with her medication. She appears to be euthyroid today. No change in her regimen was made. 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 The left breast is unremarkable. 08/28/2023 Atrial fibrillation (ICD-10 - I48.91) She is in a regular rhythm at 70 bpm today with no ectopy. Her pacemaker appears to be functioning 09/13/2023 Atrial fibrillation (ICD-10 - I48.91) She has been well controlled lately. She has been compliant with all of her medications. She was in a regular rhythm today 11/25/2023 Psoriasis (ICD-10 - L40.9) Her psoriasis is very mild and does not require treatment at this time. 03/30/2024 Malignant neoplasm o f unspecified site of right female breast (ICD-10 - C50.911) Is no sign of recurrence or relapse her new primary today. 04/24/2024 Sjoegren syndrome (ICD-10 - M35.00) This problem is well controlled with oral medication. 08/28/2023 Hypothyroid (ICD-10 - E03.9) She is euthyroid on medication. No change in her regimen was needed today. 09/13/2023 Nonrheumatic aortic valve stenosis (ICD-10 - I35.0) Her exercise tolerance is improved and she has no long-term side effects from repair of the aortic valve. He is under the care of the ad setter and compliant with her therapies. 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 A small hypodense lesion is seen measuring 1.8 x 1.1 cm which is unchanged. It will be followed radiographically at this time. 03/30/2024 Atrial fibrillation, unspecified (ICD-10 - I48.91) Her heart rate is well controlled today on no change in her regimen was made. 04/24/2024 Right knee DJD (ICD- 10 - M17.9) The pain in her right knee is mild to moderate and unchanged. No change in her regimen was needed. 08/28/2023 Hyperlipidemia type II (ICD-10 - E78.0) Her lipids have been well controlled. Her fasting lipid profile will be ordered periodically. No change in her regimen was needed today. 09/13/2023 Anticoagulated (ICD- 10 - Z79.01) . There is no contraindication to this patient remaining on anticoagulation during the procedure. I have spoken to the surgical territory manager at the ophthalmologists office. They do not require the anticoagulation to be held. 11/25/2023 Osteopenia after menopause (ICD-10 - M81.0) She will have periodic bone densities. I recommended Os-Samy 500 mg twice a day. The thousand units of vitamin D daily. She will be evaluated periodically for alendronate. 03/30/2024 S/P TAVR (transcathe ter aortic valve replacement) (ICD-10 - Z95.2) Her valve continues to work appropriately. No murmurs heard. 08/28/2023 Pancreatic mass (ICD -10 - K86.9) The cystic mass in the liver has been stable. The CA-19-9 wss elevated above normal but Is now normal at 25. A CT scan will be done in October to assess any change. 09/13/2023 Acute asthmatic bronchitis (ICD-10 - J45.909) Her viral syndromes have resolved and she is no longer wheezing. 11/25/2023 Chronic congestive heart failure, unspecified heart failure type (ICD-10 - I50.9) Her CHF is now well compensated and she is compliant with her medications. Cardiology follow-up has been arranged. 03/30/2024 Anticoagulated (ICD- 10 - Z79.01) . There is no contraindication to this patient remaining on anticoagulation during the procedure. I have spoken to the surgical territory manager at the ophthalmologists office. They do not require the anticoagulation to be held. 08/28/2023 Coagulopathy (ICD-10 - D68.9) She has a history of pulmonary embolism and atrial fibrillation and is chronically anticoagulated. She has had no episodes of bleeding. She has had no further episodes of arterial clotting or venous thromboembolism. 11/25/2023 S/P TAVR (transcathe ter aortic valve replacement) (ICD-10 - Z95.2) Her valve continues to work appropriately. No murmurs heard. 08/28/2023 Osteopenia after menopause (ICD-10 - M81.0) She will have periodic bone densities. I recommended Os-Samy 500 mg twice a day. The thousand units of vitamin D daily. She will be evaluated periodically for alendronate. 11/25/2023 Hypercholesteremia (ICD-10 - E78.00) Current fasting lipid profile shows good control of her lipids. 08/28/2023 Anticoagulated (ICD- 10 - Z79.01) . There is no contraindication to this patient remaining on anticoagulation during the procedure. I have spoken to the surgical territory manager at the ophthalmologists office. They do not require the anticoagulation to be held. 11/25/2023 Hypothyroid (ICD-10 - E03.9) Her TSH has been slightly elevated. If it remains this way on repeat her dose will be adjusted. 08/28/2023 Nonrheumatic aortic valve stenosis (ICD-10 - I35.0) Her exercise tolerance is improved and she has no long-term side effects from repair of the aortic valve. He is under the care of the ad setter and compliant with her therapies. 11/25/2023 Atrial fibrillation (ICD9-CM - 427.31) Rhythm is regular today and no change in her regimen as necessary. 08/28/2023 Chronic congestive heart failure, unspecified heart failure type (ICD-10 - I50.9) Her CHF is now well compensated and she is compliant with her medications. Cardiology follow-up has been arranged. Plan Of Treatment Pending Test Test Name Order Date PROFILE, FASTING (COMPREHENSIVE METABOLI C) 06/10/2023 PROFILE, FASTING (COMPREHENSIVE METABOLI C) 03/13/2017 PROFILE, FASTING (COMPREHENSIVE METABOLI C) 11/25/2023 PROFILE, FASTING (COMPREHENSIVE METABOLI C) 12/12/2016 PROFILE, FASTING (COMPREHENSIVE METABOLI C) 07/17/2017 PROFILE, FASTING (COMPREHENSIVE METABOLI C) 09/09/2023 PROFILE, FASTING (COMPREHENSIVE METABOLI C) 06/05/2021 PROFILE, FASTING (COMPREHENSIVE METABOLI C) 08/20/2018 PROFILE, FASTING (COMPREHENSIVE METABOLI C) 02/02/2022 PROFILE, FASTING (COMPREHENSIVE METABOLI C) 02/06/2023 PROFILE, FASTING (COMPREHENSIVE METABOLI C) 05/27/2018 PROFILE, FASTING (COMPREHENSIVE METABOLI C) 01/15/2019 PROFILE, FASTING (COMPREHENSIVE METABOLI C) 11/19/2022 PROFILE, FASTING (COMPREHENSIVE METABOLI C) 10/28/2019 PROFILE, RANDOM (COMPREHENSIVE METABOLIC ) 11/04/2018 PROFILE, RANDOM (COMPREHENSIVE METABOLIC ) 09/20/2020 PROFILE, RANDOM (COMPREHENSIVE METABOLIC ) 02/07/2024 PROFILE, RANDOM (COMPREHENSIVE METABOLIC ) 09/22/2020 PROFILE, RANDOM (COMPREHENSIVE METABOLIC ) 06/02/2020 PROFILE, RANDOM (COMPREHENSIVE METABOLIC ) 03/10/2020 PROFILE, RANDOM (COMPREHENSIVE METABOLIC ) 07/08/2019 PROFILE, RANDOM (COMPREHENSIVE METABOLIC ) 04/08/2019 PROFILE, RANDOM (COMPREHENSIVE METABOLIC ) 12/20/2021 AMYLASE 09/22/2020 LIPASE 09/22/2020 LIPID PANEL 03/13/2017 LIPID PANEL 12/12/2016 LIPID PANEL 07/17/2017 LIPID PANEL 06/02/2020 LIPID PANEL 03/10/2020 LIPID PANEL 08/20/2018 LIPID PANEL 02/02/2022 LIPID PANEL 02/06/2023 LIPID PANEL 05/27/2018 LIPID PANEL 01/15/2019 LIPID PANEL 11/19/2022 LIPID PANEL 07/08/2019 LIPID PANEL 04/08/2019 LIPID PANEL 10/28/2019 GGT 09/20/2020 GGT 06/05/2021 GGT 09/22/2020 LDH 11/19/2022 LDH 06/10/2023 LDH 03/13/2017 LDH 07/17/2017 LDH 02/06/2023 LDH 01/15/2019 FREE T4 (FT4) 07/08/2019 FREE T4 (FT4) 04/08/2019 FREE T4 (FT4) 02/06/2023 FREE T4 (FT4) 01/15/2019 FREE T4 (FT4) 06/10/2023 FREE T4 (FT4) 12/12/2016 FREE T4 (FT4) 06/02/2020 FREE T4 (FT4) 07/17/2017 FREE T4 (FT4) 03/10/2020 FREE T4 (FT4) 06/05/2021 FREE T4 (FT4) 08/20/2018 FREE T4 (FT4) 02/02/2022 FREE T4 (FT4) 05/27/2018 TSH (THYROID STIMULATING HORMONE) 2020 TSH (THYROID STIMULATING HORMONE) 2017 TSH (THYROID STIMULATING HORMONE) 2019 TSH (THYROID STIMULATING HORMONE) 2021 TSH (THYROID STIMULATING HORMONE) 2018 TSH (THYROID STIMULATING HORMONE) 2021 TSH (THYROID STIMULATING HORMONE) 2018 TSH (THYROID STIMULATING HORMONE) 2019 TSH (THYROID STIMULATING HORMONE) 2018 TSH (THYROID STIMULATING HORMONE) 2022 TSH (THYROID STIMULATING HORMONE) 2018 TSH (THYROID STIMULATING HORMONE) 2023 TSH (THYROID STIMULATING HORMONE) 2023 TSH (THYROID STIMULATING HORMONE) 2016 FERRITIN 09/20/2020 CEA 06/05/2021 CBC w DIFF 12/20/2021 CBC w DIFF 10/28/2019 CBC w DIFF 11/19/2022 CBC w DIFF 06/02/2020 CBC w DIFF 07/17/2017 CBC w DIFF 11/04/2018 CBC w DIFF 03/10/2020 CBC w DIFF 08/20/2018 CBC w DIFF 02/02/2022 CBC w DIFF 05/27/2018 CBC w DIFF 11/25/2023 CBC w DIFF 07/08/2019 CBC w DIFF 02/07/2024 CBC w DIFF 06/05/2021 CBC w DIFF 04/08/2019 CBC w DIFF 02/06/2023 CBC w DIFF 01/15/2019 CBC w DIFF 09/20/2020 CBC w DIFF 03/13/2017 CBC w DIFF 12/12/2016 SED RATE (ESR) 09/22/2020 SED RATE (ESR) 10/28/2019 SED RATE (ESR) 11/19/2022 SED RATE (ESR) 07/17/2017 SED RATE (ESR) 02/02/2022 SED RATE (ESR) 07/08/2019 SED RATE (ESR) 02/06/2023 SED RATE (ESR) 09/09/2023 SED RATE (ESR) 03/13/2017 HEPATITIS A,B,C PROFILE 09/20/2020 ALPHA-FETOPROTEIN,TUMOR MARKER CARBOHYDRATE ANTIGEN 19-9 (CA 19-9) 09/2023 CARBOHYDRATE ANTIGEN 19-9 (CA 19-9) 10/0 08/2022 CA 27.29 03/13/2017 CA 27.29 09/22/2020 CA 27.29 11/04/2018 CA 27.29 08/20/2018 LYME DISEASE IgG/IgM WB 08/20/2018 CT ABD WITH CONTRAST 09/26/2022 CT ABD WITH CONTRAST 12/20/2021 XR LUMBAR SPINE 09/26/2022 XR PELVIS 09/26/2022 MAMMOGRAM DIGITAL UNILATERAL MANUELITO LT 06/07 VITAMIN D 25-OH TOTAL 02/02/2022 VITAMIN D 25-OH TOTAL 08/20/2018 CBC WITH AUTO DIFF 06/10/2023 CBC WITH AUTO DIFF 09/09/2023 Lipid Panel 06/10/2023 Lipid Panel 11/25/2023 Lipid Panel 06/05/2021 Lipase 06/05/2021 Carbohydrate Antigen 19-9 12/20/2021 Carbohydrate Antigen 19-9 11/25/2023 Carbohydrate Antigen 19-9 02/02/2022 IR kyphoplasty lumbar 07/01/2024 Next Appt Details Provider Name:Demetrius Lynchne, 11/26/2024 09:30:00 AM, [address] [place] [address] [address], [place], [address], Insurance Providers Payer Name Payer Address Payer Phone Subscriber Number Group Number Insured Name Patient Relationship to Insured Coverage Start Date Coverage End Date MEDICARE NGS [address] [facility] [place] [address] [id number] Kayla Cheung Self - patient is the insured [facility] [address] [place], [place] [phone] [id number] Kayla Cheung Self - patient is the insured Medical (General) History Medical History History ICD Code nulliparous psoriasis hodgkins [id number] sjogren's syndrome 2000 insomnia Hypothyroidism DJD of the right knee marginal zone lymphoma 2006 tia 10/2011 bradycardia 10/2011 afib [facility] [place] compression fracture vertebral body T11, T12 [id number] carcinoma of the right breast Fe bruary, 2015 former smoker April 2015 cystic lesion of pancreas cholelithiasis paroxysmal atrial fibrillation pacemaker, high degree AV block Aortic stenosis December 01, 2021, valve are a 0.9 cm2 Aortic regurgitation Tricuspid regurgitation The patient has a history of back pain, a hardening mole on her breast, thinning hair, and dry eyes. She is on blood thinners with no bleeding issues. Her heart is functioning normally. Her sleep and appetite are generally good. Her weight is stable. Her blood work showed slightly high CA 1989, but her liver tests are normal and her kidney function has improved. Her cholesterol levels are good. Her pancreas is being monitored. Surgical History Surgery Date(Month/Year) No history catheter ablation by Dr Hector Thorne at [facility] 09/2023 Aorta Catherization 08/2022 endoscopy at [facility] 01/2020 battery replacement in pacemaker 02/2020 Mastectomy right breast 11/08/2014 kyphoplasty 10/2014 pacermaker insertion 10/2011 Hospitalization History Reason Date(Month/Year) Multiple
== END 2024-08-17 08:46 | disposition home or self-care (01) ==
LOC: HO.MAMMO 08:45
PROVIDERS: PCP Internal Medicine Medical Oncology; Visit Provider Internal Medicine Medical Oncology
DX: Z12.31 Encounter for screening mammogram for malignant neoplasm of breast (principal)
CPT/HCPCS: 77063; 77067

== ENCOUNTER → 2024-08-17 09:00 | Outpatient (BNV) | payer MEDICARE, SELFPAY ==
[2023-01-14 15:19] VITALS: BP 130/62; BP 134/66; BP 138/70; BMI 33.3
== END ==
PROVIDERS: PCP Internal Medicine Medical Oncology; Visit Provider Internal Medicine
DX: Z12.31 Encounter for screening mammogram for malignant neoplasm of breast (principal)
CPT/HCPCS: 77063; 77067

== ENCOUNTER 2024-09-12 07:41 | Emergency (ER) | payer MEDICARE, SELFPAY ==
[2023-01-14 15:19] VITALS: BP 130/62; BP 134/66; BP 138/70; BMI 33.3
--- NOTE | ~2024-09-12 | XR_ITS ---
CLINICAL HISTORY: pain 3 views sacroiliac joints Comparison: None Findings No acute fractures. Moderate degenerative changes of the sacroiliac joints and bilateral hips, [id number]. Diffuse fecal retention within the colon. IMPRESSION: No evidence of fracture or acute malalignment. This document has been electronically signed by: Blue Carlin MD on 09/12/2024 09:12:10
--- NOTE | ~2024-09-12 | CT_ITS ---
CLINICAL HISTORY: hx of malignancy, back pain CT lumbar spine without contrast Comparison: CT/[place]/SR - CT LUMBAR SPINE POST VERT - 07/20/24 15:46 EDT Findings: Kyphoplasty cement again noted within T11, T12 and L2. There is minimal anterior superior endplate height loss at L3 which is new from prior. Complete disc space loss at L3-L4 with moderately severe central canal stenosis at this level, axial 209, series 5. There is also moderately severe central canal stenosis at L4-L5, axial 350, series 6. Diffuse fecal retention within the colon. Moderate atherosclerotic disease. Impression: There is a mild anterior superior endplate compression fracture L3 which is new since the comparison CT in July. Otherwise moderately severe degenerative and post kyphoplasty changes. This document has been electronically signed by: Blue Carlin MD on 09/12/2024 10:14:43
--- NOTE | ~2024-09-12 | CT_ITS ---
CLINICAL HISTORY: pain CT pelvis without contrast Comparison: None Findings: Fecal retention again noted throughout the colon. There is diverticulosis present and there is faint stranding about the sigmoid colon, axial images 197 -205. The sacrum is intact. [id number] degenerative changes seen at both hips. The bony pelvis is intact. Impression: Possible mild diverticulitis. Mild stranding about the distal sigmoid colon as detailed. The bony pelvis is intact with degenerative changes. This document has been electronically signed by: Blue Carlin MD on 09/12/2024 10:17:04
--- NOTE | ~2024-09-12 | XR_ITS ---
CLINICAL HISTORY: back pain 3 views lumbar spine Comparison: CT/[place]/SR - CT LUMBAR SPINE POST VERT - 07/20/24 15:46 EDT Findings: Kyphoplasty cement noted within fractures at T11, T12 and L2. No definite acute compression fracture. Complete disc space loss at L3-L4. Facet hypertrophy within the lower lumbar spine noted. Diffuse fecal retention throughout the colon. IMPRESSION: Advanced chronic changes. No definite acute compression fracture. Multilevel kyphoplasty cement as detailed. Diffuse fecal retention throughout the colon. This document has been electronically signed by: Blue Carlin MD on 09/12/2024 09:09:48
[2024-09-12 07:44] VITALS: BP 155/68; PULSE 83; RESP 14; TEMP 36.2; O2SAT 98; BMI 28.0
--- NOTE | 2024-09-12 07:57 | ED_ITS ---
HPI - Back Pain/Injury General Chief Complaint: Back Pain/Injury Stated Complaint: back pain sent in by pcp Time Seen by Provider: 09/12/24 07:56 Source: patient and RN notes reviewed Mode of arrival: ambulatory Limitations: no limitations History of Present Illness ED Provider: Ana Jacobs PA-C HPI Narrative: This is a 79-year-old female, with a past medical history of AFib on Eliquis, TAVR in 08/2022 and pacemaker replaced in 2019, non-Hodgkin's lymphoma (treated at 1987 with radiation), Sjogren's syndrome, breast cancer s/p right mastectomy, and hypothyroidism who presents emergency department with concerns for back pain for the last 2 weeks. Patient states that she has a history of a kyphoplasty in July which helped her back pain significantly. She states that over the last 2 weeks she has had worsening back pain. Denies any recent trauma, injury, heavy lifting or falls. Pain starts in her low back and radiates down her right leg. She denies any numbness, tingling, or weakness. Denies any urinary or bowel retention or incontinence. No urinary symptoms. She was seen by her primary care physician who prescribed her cyclobenzaprine, a course of dexamethasone, a nd tramadol. She states that tramadol was the only medication that helps her pain. She states that last night she took 3 tramadol tablets at once which provided her with good relief. She denies any fevers, chills, chest pain, shortness of breath, abdominal pain, nausea, vomiting or diarrhea. No other complaints or concerns at this time. MD elicited complaint: back pain Pertinent past history: prior back pain Onset (ago): day(s) Timing: constant Severity: moderate Quality: aching Location: lumbar spine Radiation: none Exacerbating factors: none Relieving factors: none Associated symptoms: denies other symptoms Work related injury: No Related Data Home Medications ?Medication ?Instructions ?Recorded ?Confirmed apixaban 5 mg tablet (Eliquis) 5 mg PO BID 08/24/20 07/14/24 cholecalciferol (vitamin D3) 25 25 mcg PO DAILY 08/24/20 07/14/24 mcg (1,000 unit) capsule levothyroxine 100 mcg capsule 100 mcg PO DAILY 08/24/20 07/14/24 simvastatin 40 mg tablet 40 mg PO BEDTIME 08/24/20 07/14/24 calcium carbonate 600 mg PO BID 11/27/21 07/14/24 ferrous sulfate 325 mg (65 mg 325 mg PO DAILY 11/27/21 07/14/24 iron) tablet alendronate 70 mg tablet 70 mg PO MOREIRA 11/13/22 07/14/24 aspirin 81 mg tablet,delayed 81 mg PO DAILY 11/13/22 07/14/24 release fluorometholone 0.1 % eye 1 drp ophthalmic (eye) BEDTIME 11/13/22 07/16/24 drops,suspension metoprolol tartrate 25 mg tablet 25 mg PO BID 07/23/23 07/14/24 peg 400-propylene glycol (PF) 0.4 1 drp ophthalmic (eye) 5XD PRN Dry 07/23/23 07/14/24 %-0.3 % eye drops in a dropperette Eyes (Systane (PF)) trazodone 150 mg tablet 150 mg PO BEDTIME Insomnia 07/23/23 07/14/24 pantoprazole 40 mg tablet,delayed 40 mg PO BEDTIME 07/16/24 07/16/24 release Previous Rx's ?Medication ?Instructions ?Recorded morphine 15 mg immediate release 7.5 mg (1/2 x 15 mg) PO Q6H PRN 06/24/24 tablet pain #6 tabs morphine 15 mg immediate release 15 mg PO TID PRN severe pain 09/12/24 tablet (scale score 7-10) 5 days #10 tabs Allergies Allergy/AdvReac Type Severity Reaction Status Date / Time amoxicillin [AMOXICILLIN] Allergy Severe hives, Verified 09/12/24 07:47 anaphylaxis, hives Penicillins [PENICILLINS] Allergy Mild hives, Verified 09/12/24 07:47 itching Sulfa (Sulfonamide Allergy Mild HIVES, Verified 09/12/24 07:47 Antibiotics) itching [SULFA (SULFONAMIDE ANTIBIOTICS)] Review of Systems Review of Systems: Constitutional: No Weight loss, No Fever, No Chills, No Night Sweats, No Fatigue, No Malaise ENT/Mouth: No Hearing loss, No Ear Pain, No Nasal Congestion, No Sinus Pain, No Hoarseness, No sore throat, No Rhinorrhea, No Swallowing Difficulty Eyes: No Eye Pain, No Swelling, No Redness, No Foreign Body, No Discharge, No Vision Changes Cardiovascular: No Chest Pain, No SOB, No Dyspnea on Exertion, No Orthopnea, No Edema, No Palpitations Respiratory: No Cough, No Sputum, No Wheezing, No Smoke Exposure, No Dyspnea Gastrointestinal: No Nausea, No Vomiting, No Diarrhea, No Constipation, No Abdominal pain, No Hematochezia, No Melena Genitourinary: No irregular bleeding, No Dysuria, No Urinary Frequency, No Hematuria, No Urinary Incontinence/retention, No Urgency, No Flank Pain, No Urinary Flow Changes, No Hesitancy Musculoskeletal: +back pain, No joint pain, No Myalgias, No Joint Swelling Skin: No Skin Lesions, No rash Neuro: No Weakness, No Numbness, No Paresthesias, No Loss of Consciousness, No Dizziness, No Headache Psych: No Anxiety/Panic, No Depression, No SI/HI/AH/VH, No Social Issues, Heme/Lymph: No Bruising, No Bleeding,No Lymphadenopathy Endocrine: No Polyuria, No Polydipsia, No Temperature Intolerance Yes all other systems are reviewed and are negative Constitutional: Constitutional: Reports as per HPI [facility] Past Medical History Medical History Osteoarthritis Heart block AV second degree Psoriasis Gallstones Pancreatic cyst Insomnia Hx-TIA (transient ischemic attack) (2011) History of chemotherapy History of cardioversion (07/2023) History of cardiac pacemaker in situ (2011) History of transcatheter aortic valve replacement (TAVR) PAF (paroxysmal atrial fibrillation) History of breast cancer History of non-Hodgkin's lymphoma Anemia UTI (urinary tract infection) Sjogren's syndrome with keratoconjunctivitis sicca Surgical History Hx of splenectomy (1987) Hx of right mastectomy (2014) History of esophagogastroduodenoscopy (EGD) Hx of colonoscopy Hx of kyphoplasty History of cardiac catheterization S/P TAVR (transcatheter aortic valve replacement) Social History Social History Household Members: Spouse Household Members Other:: daughter Housing: House Are you a primary career technology teacher to a significant other at home: No Do you presently have visiting nurse or other home services: No Alcohol intake: current Alcohol intake frequency: holidays/special occasions only Patient Tobacco Use Status: Former Tobacco user Tobacco use type: Cigarette Cigarette Packs Per Day: 0.25 Years Smoked: 1 e-Cigarette/Vaping Use: Never Used Advance Directives: No Advance Directives Information Provided: Yes Do you have a plan to hurt others: No Plan service: No Physical Exam Vital Signs: Vital Signs: Last Vital Signs Temp 98.1 F 09/12/24 11:52 Pulse 65 09/12/24 11:52 Resp 16 09/12/24 11:52 BP 133/50 L 09/12/24 11:52 Pulse Ox 96 09/12/24 11:52 O2 Del Method Room Air 09/12/24 11:52 BMI result Body Mass Index 28.0 Const: General: cooperative, comfortable and no acute distress Orientation/consciousness: patient oriented x3 Limitations: no limitations HEENT: Head: Yes normal to inspection, Yes normocephalic and Yes atraumatic Ears: hearing grossly normal bilaterally General nose exam: Normal external nose present Face and sinus: Yes normal facial exam Mouth: Normal oral and palatal mucosa present, oropharynx normal and moist mucous membranes Throat: Yes posterior oropharynx normal Eyes: General: appearance normal, both eyes and all related structures Eyelids: Yes eyelids normal Conjunctivae: conjunctivae normal Sclerae: sclerae normal Pupils: Equal, round and reactive pupils present EOM: EOMs intact bilaterally Neck: Neck: Yes normal visual inspection, Yes full ROM and Yes no lymphadenopathy Lymphatic: no lymphadenopathy noted Chest: Chest palpation & inspection: normal inspection of the chest Resp: Effort & Inspection: normal respiratory effort and able to speak in complete sentences Auscultation: clear to auscultation bilaterally, no crackles, no rales, no rhonchi and no wheezes Cardio: Rate: regular rate Rhythm: regular rhythm Heart sounds: S1 normal heart sound present and S2 normal heart sound present GI: Inspection: Yes normal to inspection Back/Spine/Pelvis: Other: Patient with tenderness palpation along the bilateral SI joints, she is ambulatory with steady gait. DTRs are 2+. Distal sensation circulation intact. Strength 5/5 in lower extremities. No pitting edema noted. Skin: General skin exam: no rashes or lesions noted Trauma: no lacerations or abrasions Wounds: no wounds Neuro: General: patient oriented x3 and moves all extremities Cranial nerves: Yes Equal, round and reactive pupils present Extrem: General: Yes normal to inspection Right upper extremity: normal to inspection Left upper extremity: normal to inspection Right lower extremity: normal to inspection Left lower extremity: normal to inspection Medications Administered Discontinued Medications Generic Name Dose Route Start Last Admin Trade Name Laura PRN Reason Stop Dose Admin Lidocaine 1 patch 09/12/24 09:09 09/12/24 09:20 Lidocaine 4 % Patch Adh..Patch TRANSDERMA 09/12/24 09:10 1 patch ONCE ONE Administration Protocol Morphine Sulfate 7.5 mg 09/12/24 09:09 09/12/24 09:31 Morphine Sulfate Immed Release 15 Mg Tablet PO 09/12/24 09:10 7.5 mg ONCE ONE Administration Ondansetron HCl 4 mg 09/12/24 09:09 09/12/24 09:20 Ondansetron Odt 4 Mg Tab.Rapdis TRANSLINGU 09/12/24 09:10 4 mg ONCE ONE Administration Medical Decision Making Medical Decision Making MDM Narrative: This is a 79-year-old female, with a past medical history of AFib on Eliquis, TAVR in 08/2022 and pacemaker replaced in 2019, non-Hodgkin's lymphoma (treated at 1987 with radiation), Sjogren's syndrome, breast cancer s/p right mastectomy, and hypothyroidism who presents emergency department with concerns for back pain for the last 2 weeks. On arrival, patient well-appearing, speaking in full sentences under no acute distress. Blood pressure mildly elevated at 150 5/68, all other vital signs within normal limits. Patient has tenderness palpation along the bilateral SI joints, and lumbar midline spine. No overlying skin changes or warmth. Recently was seen by her primary care physician who prescribed her dexamethasone, muscle relaxants, and tramadol which provided her with minimal relief. She did not have any x-rays performed at that time. This patient presents with back pain most consistent with lumbago. Differential diagnoses includes lumbago versus musculoskeletal spasm / strain versus sciatica.No back pain red flags on history or physical. She does have a history of breast cancer, in remission, not currently receiving radiation or chemotherapy, will obtain images to rule out any abnormalities. Presentation not consistent with malignancy cauda equina syndrome (no bowel or urinary incontinence/retention, no saddle anesthesia, no distal weakness), renal colic, pyelonephritis (afebrile, no CVAT, no urinary symptoms). I recommended Tylenol and or lidocaine patches while she waits for the x-rays, she declines at this time. 09:22AM - Dr. Cote came and discussed case with me and my attending physician, Dr. Gonzalez, who reports that they are having a difficult time managing her pain. Given extensive hx of malignancy, will order CT lumbar/pelvis to r/o any malignant process as this will be best visualized on this. Will also trial morphine 7.5mg PO, added zofran for nausea prevention and lidocaine patches. Cat scan returns, does show a compression fracture at L3. Discussed this with patient. I attempted to prescribe tramadol as she had good relief with this however this is attempting a prior authorization request, given this, will send over morphine instead. She will follow-up with her primary care physician/ oncologist for further management. I also urged the patient to follow-up with Dr. Perez in regards to new compression fracture. She understands and agrees with plan. She is feeling better after receiving medications in the emergency room today. Patient stable for discharge. Differential Diagnosis Differential Diagnoses: The differential diagnosis associated with the presentation includes See above Admission/Observation Consideration of admission/observation: Escalation of care including admission/observation considered Radiology Impression Discussion of test interpretation with radiology: I have reviewed the radiologist's reading. Radiologist Impression: Findings: Fecal retention again noted throughout the colon. There is diverticulosis present and there is faint stranding about the sigmoid colon, axial images 197 -205. The sacrum is intact. [id number] degenerative changes seen at both hips. The bony pelvis is intact. Impression: Possible mild diverticulitis. Mild stranding about the distal sigmoid colon as detailed. The bony pelvis is intact with degenerative changes. This document has been electronically signed by: Blue Carlin MD on 09/12/2024 10:17:04 Dictated By: Blue Carlin MD Findings: Kyphoplasty cement again noted within T11, T12 and L2. There is minimal anterior superior endplate height loss at L3 which is new from prior. Complete disc space loss at L3-L4 with moderately severe central canal stenosis at this level, axial 209, series 5. There is also moderately severe central canal stenosis at L4-L5, axial 350, series 6. Diffuse fecal retention within the colon. Moderate atherosclerotic disease. Impression: There is a mild anterior superior endplate compression fracture L3 which is new since the comparison CT in July. Otherwise moderately severe degenerative and post kyphoplasty changes. This document has been electronically signed by: Blue Carlin MD on 09/12/2024 10:14:43 Dictated By: Blue Carlin MD CLINICAL HISTORY: pain 3 views sacroiliac joints Comparison: None Findings No acute fractures. Moderate degenerative changes of the sacroiliac joints and bilateral hips, [id number]. Diffuse fecal retention within the colon. IMPRESSION: No evidence of fracture or acute malalignment. This document has been electronically signed by: Blue Carlin MD on 09/12/2024 09:12:10 Dictated By: Blue Carlin MD Discharge Plan Discharge Clinical Impression: Back pain, Compression fracture of L3 vertebra Patient Disposition: Home, Self-Care Instructions: Back Pain (ED) Additional Instructions: You were seen in the emergency department due to back pain. Your CT scan shows compression fracture of the L3 level. Please follow-up with your oncologist, and Dr. Ridley for management. Take prescribed medication as directed. Morphine as a strong pain medication that can cause adverse side effects. Please be advised that this can cause drowsiness, do not drink alcohol or drive while taking this medication. Please be advised that this can cause constipation, addictive behaviors, and can increase risk of falls. Please take only as needed. If any new or worsening symptoms occur including but not limited to weakness in lower extremities, loss of bladder or bowel control, chest pain, shortness of breath, please seek emergent care. Prescriptions: New morphine 15 mg tablet 15 mg PO TID PRN (Reason: severe pain (scale score 7-10)) 5 Days Qty: 10 0RF Rx Instructions: Partial Fill upon patient request. No Action metoprolol tartrate 25 mg Tablet 25 mg PO BID Systane (PF) 0.4-0.3 % Dropperette 1 drp OPHTHALMIC (EYE) 5XD PRN (Reason: Dry Eyes) trazodone 150 mg tablet 150 mg PO BEDTIME morphine 15 mg tablet 7.5 mg PO Q6H PRN (Reason: pain) Qty: 6 0RF Rx Instructions: Partial Fill upon patient request. pantoprazole 40 mg tablet,delayed release (DR/EC) 40 mg PO BEDTIME cholecalciferol (vitamin D3) 25 mcg (1,000 unit) capsule 25 mcg PO DAILY Eliquis 5 mg tablet 5 mg PO BID levothyroxine 100 mcg capsule 100 mcg PO DAILY simvastatin 40 mg tablet 40 mg PO BEDTIME calcium carbonate 600 mg calcium (1,500 mg) tablet 600 mg PO BID ferrous sulfate 325 mg (65 mg iron) tablet 325 mg PO DAILY aspirin 81 mg tablet,delayed release (DR/EC) 81 mg PO DAILY fluorometholone 0.1 % drops,suspension 1 drp ophthalmic (eye) BEDTIME alendronate 70 mg tablet 70 mg PO MOREIRA Interventions: ED Discharge Assessment Last Done: 09/12/24 11:52 Discharge Date/Time: 09/12/24 11:53 Print Language: Citizen Of [place]
[2024-09-12 08:00] VITALS: BP 142/56; PULSE 71; RESP 16; TEMP 36.3; O2SAT 99
--- OUTSIDE RECORDS SUMMARY | 2024-09-12 08:35 | XMS_ITS ---
Author Organization Demetrius Cote III, MD Address [address] [place] [address] [place] [address] Care Team Providers Care Clerical Clerk Name Role Phone Demetrius Cote Primary Care Provider REASON FOR VISIT told patient to call Social History Sex Assigned At : Social History Observation Description Sex Assigned At Female Encounters Encounter Location Date Provider Diagnosis Demetrius Cote III, MD [address] [place] [address] [place] [address] 09/11/2024 Demetrius Cote Plan Of Treatment Next Appt Details Provider Name:Demetrius Cote, 09/16/2024 01:45:00 PM, [address] [place] [address] [place], [address], Provider Name:Demetrius Cote, 11/26/2024 09:30:00 AM, [address] [place] [address] [place], [id number], Progress Notes * Kayla CHE[birth year]GDOB:[birth year] (79 yo F)Acc No.[id number]:09/11/2024 Patient:?Kayla CHEUNG :1945???Age:79 Y???Sex:Female [address] [facility] [place] [address] * * Date:?
--- OUTSIDE RECORDS SUMMARY | 2024-09-12 08:36 | XMS_ITS ---
Author Organization Demetrius Cote III, MD Address [address] [place] [address] Care Team Providers Care Die Maker Name Role Phone Demetrius Cote Primary Care Provider [phone] Allergies Allergen (clinical drug ingredient) Drug/Non Drug Allergy documented on EMR Reaction Allergy Type Onset Date Status Penicillin Unknown Drug Allergy Active sulfamethoxazole / trimethoprim Sulfamethoxazole-Tri methoprim hives Drug Allergy Active amoxicillin Amoxicillin hives Drug Allergy Act anmol Reason For Referral Reason severe pain right le g due to L 2 compression fracture after vertebroplasty Diagnosis 1 Compression fracture of L2 vertebra with routine healing, subsequent encounter (S32.020D) Diagnosis 2 Right leg pain (M79. 604) Referral Organization Demetrius Cote III, MD Referring Provider First Name Demetrius Referring Provider Last Name Kera Referring Provider Speciality Internal M edicine Referred Provider [facility] er, Pain Management Referred Provider Specialty Pain Medicin e General Notes Magdalena Greenwood CMA 09/09 01:17:42 PM > referral ,progress note, x ray reports faxed to [facility] . I called they stated they will review the referral and call patient to set up appt Referral Priority Routine REASON FOR VISIT Acute compression fracture L2 all, Severe pain radiating down right leg, Recent kyphoplasty [facility] L2, Remote kyphoplasty T11 Medications Medication SIG (Take, Route, Frequency, Duration) Notes Start Date End Date Status Furosemide 20 MG TAKE 1 TABLET BY JOSÉ TH EVERY OTHER DAY Oral Active traMADol HCl 50 MG 1 tablet Orally thre e times a day 09/04/2024 Active Amiodarone HCl 200 MG TAKE 2 TABLETS BY MOUTH TWICE DAILY FOR 12 DAYS THEN TAKE 1 TABLET BY MOUTH DAILY Oral Active dexAMETHasone 2 MG 1 tablet Orally twic e a day 09/04/2024 Active Cyclobenzaprine HCl 10 MG 1 tablet Orall y every 8 hours 09/04/2024 Active D3-1000 25 MCG (1000 UT) 1 capsule Orall y Once a day Active Melatonin 1 MG 1 tablet at bedtime as needed Orally Once a day Active levoFLOXacin 500 MG 1 tablet Orally Once a day 09/10/2023 Active Eliquis 5 MG 1 tablet Orally Twic e a day Active Aspirin 81 81 MG 1 tablet Orally Once a day Active Simvastatin 40 MG TAKE 1 TABLET EVERY EVENING Active Levothyroxine Sodium 100 MCG TAKE 1 TABLET DAILY Active Metoprolol Tartrate 25 MG TAKE 1 TABLET 2 TIMES DAILYWITH FOOD Active traZODone HCl 150 MG TAKE 1 TABLET BY MO UTH EVERY NIGHT AT BEDTIME Active Alendronate Sodium 70 MG TAKE 1 TABLET B Y MOUTH 1 TIME A WEEK 30 MINUTES BEFORE FIRST FOOD OR BEVERAGE OR MEDICINE OF THE DAY WITH WATER Active FeroSul 325 (65 Fe) MG TAKE 1 TABLET BY MOUTH EVERY DAY Active dexAMETHasone 2 MG 1 tablet Orally twic e a day 06/23/2024 Active Gabapentin 300 MG 1 capsule Orally thr ee times a day 06/23/2024 Active Calcium Carbonate 1500 (600 Ca) MG 1 tablet with food Orally Twice a day Active traMADol HCl 50 MG 1 tablet Orally thre e times a day 09/04/2024 Active Social History Tobacco Use: Social History Observation Description Date Details (start date - stop date) Former Smoker NA - NA Sex Assigned At : Social History Observation Description Sex Assigned At Female Tobacco Use/Smoking Question Answer Notes Patient is a former smoker How long has it been since you last smoked? 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 she underwent kyphoplasty for an L2 compression fracture. Over the last 2 weeks she has developed severe pain in her lumbar spine a radiates down her right leg into her knee. I have Given her tramadol 50 mg every 8 hours with a followup visit in 48 hours.I have referred her to pain management. Further imaging and neurosurgery may be necessary. 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 She is going to arrange for resection with the surgeon next week. 09/07/2024 Malignant neoplasm of unspecified site of right female breast (ICD-10 - C50.911) Is no sign of recurrence or relapse her new primary today. 09/07/2024 Hypothyroidism, unspecified (ICD-10 - E03.9) She has been compliant with her medication. She appears to be euthyroid today. No change in her regimen was made. 09/07/2024 Atrial fibrillation, unspecified (ICD-10 - I48.91) Her heart rate is well controlled today on no change in her regimen was made. 09/07/2024 Overweight (ICD-10 - E66.3) She has lost an additional 9 pounds. She was continued on her current weight loss program. We reviewed her diet and nutrition. She is doing quite well. 09/07/2024 Anticoagulated (ICD-10 - Z79.01) . There is no contraindication to this patient remaining on anticoagulation during the procedure. I have spoken to the surgical instrument technician at the ophthalmologists office. They do not require the anticoagulation to be held. 09/07/2024 Pancreatic mass (ICD-10 - K86.9) The CA-19-9 is fluctuating but [...] need to have surgery on the pancreas. 09/07/2024 Sjoegren syndrome (ICD-10 - M35.00) This problem is well controlled with oral medication. 09/07/2024 Hodgkins disease (ICD-10 - C81.90) There is no adenopathy. She continues in a durable remission. 09/07/2024 Former smoker (ICD-10 - Z87.891) She is highly motivated not to smoke. We have discussed strategies for maintenance of abstinence in times of stress and illness. Plan Of Treatment Medication Medication Name Sig Start Date Stop Date Notes Furosemide 20 MG TAKE 1 TABLET BY JOSÉ TH EVERY OTHER DAY Oral traMADol HCl 50 MG 1 tablet Orally thre e times a day 09/04/2024 Amiodarone HCl 200 MG TAKE 2 TABLETS BY MOUTH TWICE DAILY FOR 12 DAYS THEN TAKE 1 TABLET BY MOUTH DAILY Oral dexAMETHasone 2 MG 1 tablet Orally twic e a day 09/04/2024 Cyclobenzaprine HCl 10 MG 1 tablet Orall y every 8 hours 09/04/2024 D3-1000 25 MCG (1000 UT) 1 capsule Orall y Once a day Melatonin 1 MG 1 tablet at bedtime as needed Orally Once a day levoFLOXacin 500 MG 1 tablet Orally Once a day 09/10/2023 Eliquis 5 MG 1 tablet Orally Twic e a day Aspirin 81 81 MG 1 tablet Orally Once a day Simvastatin 40 MG TAKE 1 TABLET EVERY EVENING Levothyroxine Sodium 100 MCG TAKE 1 TABLET DAILY Metoprolol Tartrate 25 MG TAKE 1 TABLET 2 TIMES DAILYWITH FOOD traZODone HCl 150 MG TAKE 1 TABLET BY MO UTH EVERY NIGHT AT BEDTIME Alendronate Sodium 70 MG TAKE 1 TABLET B Y MOUTH 1 TIME A WEEK 30 MINUTES BEFORE FIRST FOOD OR BEVERAGE OR MEDICINE OF THE DAY WITH WATER FeroSul 325 (65 Fe) MG TAKE 1 TABLET BY MOUTH EVERY DAY dexAMETHasone 2 MG 1 tablet Orally twic e a day 06/23/2024 Gabapentin 300 MG 1 capsule Orally thr ee times a day 06/23/2024 Calcium Carbonate 1500 (600 Ca) MG 1 tablet with food Orally Twice a day traMADol HCl 50 MG 1 tablet Orally thre e times a day 09/04/2024 Referrals Referral Date Details 09/07/2024 09/07/2024, severe p ain right leg due to L 2 compression fracture after vertebroplasty, Pain Management [facility] Next Appt Details Follow Up: TV Saturday, Milagro son: TV check pain Provider Name:Demetrius Cote, 09/16/2024 01:45:00 PM, [address] [place] [address] [address], [place], [address], Provider Name:Demetrius Cote, 11/26/2024 09:30:00 AM, [address] [place] [address] [address], [place], [address], Progress Notes * Kayla CHEUNGDOB:[birth year] (79 yo F)Acc No.[id number]:09/07/2024 Progress Notes Patient:?EDILSONSHIVLigiaKayla Provider:?Demetrius Cote MD :1945???Age:79 Y???Sex:Female D ate:09/07/2024 Address:[address] [place], [place] [id number] Subjective: * Chief Complaints: * ???Acute compression fractur e L2 allSevere pain radiating down right legRecent kyphoplasty [facility] [id number] kyphoplasty T11 * HPI: ???COVID-19 Screening:?She recently underwent an upper endoscopy to evaluate the lesion in the head of the pancreas.? A biopsy of an irregular appearing area on the gastric antrum showed adenocarcinoma of the stomach.? She was referred to Dr. Hill at [facility] surgical oncology.? A diagnostic laparoscopy is scheduled for September 30, 2024 prior to excision.? This unfortunate patient recently developed another compression fracture.? She has a histoory of a kyphoplasty at T 11.? She now has a new compression fracture at L2, which is causing pain radiating down her right leg even after kyphoplasty.? I have given her a prescription for tramadol as she is unable to get benefit from acetaminophen or ibuprofen.? She can take 50 mg 3 times a day.? Followup visit in 48 hours was arranged. ?Questions?Have you had any new onset fever, chills, cough, congestion, sore throat, shortness of breath, muscle aches??No * ROS:?General/Constitutional:?pain?Moderate pain, L2, severe pain radiating down right leg to knee.?Chills?denies.?Fatigue?admits.?Fever?denies.?ENT:?Decreased hearing?denies.?Respiratory:?Cough?denies.?Cardiovascular:?Chest pain with exertion?denies.?Dyspnea on exertion?denies.?Shortness of breath?with exertion.?Gastrointestinal:?Constipation?denies.?Decreased appetite?denies.?Diarrhea?denies.?Heartburn?denies.?Nausea?denies.?Rectal bleeding?denies.?Vomiting?denies.?Hematology:?bruising?denies.?petechiae?denies.?Swollen glands?none have been noted.?Genitourinary:?Frequent urination?denies.?Musculoskeletal:?Muscle aches?Low back and right leg.?Painful joints?denies.?Sciatica?denies.?Weakness?denies.?Skin:?Itching?denies.?Rash?denies.?Skin lesion(s)?denies.?Neurologic:?Difficulty speaking?denies.?Dizziness?denies.?Headache?denies.?Low back pain?denies.?Psychiatric:?Depressed mood?denies.? * Medical History:? * Surgical History:?pacermaker insertion 10/2011kyphoplasty 10/2014Mastectomy right breast 11/08/2014battery replacement in pacemaker 02/2020endoscopy at [facility] 01/2020Aorta Catherization 3catheter ablation by Dr Hector Thorne at [facility] 09/2023No history * Hospitalization/Major Diagno stic Procedure:?Multiple * Family History:?Father: dece ased 77 yrs, cardiac complications, pacemaker and valve replacement, hypertension, diagnosed with HTN.?Mother: 92 yrs, kidney failure, cardiac disease, pacemaker.?4 brother(s) - healthy. .? She has an adopted daughter and two brothers with hypertension. She is not aware of any inherited cancer family syndrome. She is not aware of any other cases of breast cancer or ovarian cancer or lymphoma in her family. She is not aware of any history of mental illness or substance use disorder or addiction. * Social History:?Tobacco Use:?Tobacco Use/Smoking?Patient is a?former smoker ?How long has it been since you last smoked??> 10 years ?Additional Findings: Tobacco Non-User?Ex-cigarette smoker ???She is with children. She is working. She is in remission from the Hodgkins disease for many years. She was born in [place], [place]. The patient lives with her daughter. She has been living in the same house for 45 years. She has a dog that is aging and having trouble. * Medications:?TakingCalcium C arbonate 1500 (600 Ca) MG Tablet 1 tablet with food Orally Twice a day Gabapentin 300 MG Capsule 1 capsule Orally three times a day dexAMETHasone 2 MG Tablet 1 tablet Orally twice a day FeroSul 325 (65 Fe) MG Tablet TAKE 1 TABLET BY MOUTH EVERY DAY Levothyroxine Sodium 100 MCG Tablet TAKE 1 TABLET DAILY Simvastatin 40 MG Tablet TAKE 1 TABLET EVERY EVENING traZODone HCl 150 MG Tablet TAKE 1 TABLET BY MOUTH EVERY NIGHT AT BEDTIME Metoprolol Tartrate 25 MG Tablet TAKE 1 TABLET 2 TIMES DAILYWITH FOOD Alendronate Sodium 70 MG Tablet TAKE 1 TABLET BY MOUTH 1 TIME A WEEK 30 MINUTES BEFORE FIRST FOOD OR BEVERAGE OR MEDICINE OF THE DAY WITH WATER levoFLOXacin 500 MG Tablet 1 tablet Orally Once a day Melatonin 1 MG Tablet 1 tablet at bedtime as needed Orally Once a day Aspirin 81 81 MG Tablet Delayed Release 1 tablet Orally Once a day Eliquis 5 MG Tablet 1 tablet Orally Twice a day D3-1000 25 MCG (1000 UT) Capsule 1 capsule Orally Once a day Furosemide 20 MG Tablet TAKE 1 TABLET BY MOUTH EVERY OTHER DAY Oral Amiodarone HCl 200 MG Tablet TAKE 2 TABLETS BY MOUTH TWICE DAILY FOR 12 DAYS THEN TAKE 1 TABLET BY MOUTH DAILY Oral traMADol HCl 50 MG Tablet 1 tablet Orally three times a day , stop date 09/14/2024yclobenzaprine HCl 10 MG Tablet 1 tablet Orally every 8 hours , stop date 09/24/2024dexAMETHasone 2 MG Tablet 1 tablet Orally twice a day traMADol HCl 50 MG Tablet 1 tablet Orally three times a day , stop date 09/14/2024Medication List reviewed and reconciled with the patientTaking Calcium Carbonate 1500 (600 Ca) MG Tablet 1 tablet with food Orally Twice a day Taking Gabapentin 300 MG Capsule 1 capsule Orally three times a day Taking dexAMETHasone 2 MG Tablet 1 tablet Orally twice a day Taking FeroSul 325 (65 Fe) MG Tablet TAKE 1 TABLET BY MOUTH EVERY DAY Taking Levothyroxine Sodium 100 MCG Tablet TAKE 1 TABLET DAILY Taking Simvastatin 40 MG Tablet TAKE 1 TABLET EVERY EVENING Taking traZODone HCl 150 MG Tablet TAKE 1 TABLET BY MOUTH EVERY NIGHT AT BEDTIME Taking Metoprolol Tartrate 25 MG Tablet TAKE 1 TABLET 2 TIMES DAILYWITH FOOD Taking Alendronate Sodium 70 MG Tablet TAKE 1 TABLET BY MOUTH 1 TIME A WEEK 30 MINUTES BEFORE FIRST FOOD OR BEVERAGE OR MEDICINE OF THE DAY WITH WATER Taking levoFLOXacin 500 MG Tablet 1 tablet Orally Once a day Taking Melatonin 1 MG Tablet 1 tablet at bedtime as needed Orally Once a day Taking Aspirin 81 81 MG Tablet Delayed Release 1 tablet Orally Once a day Taking Eliquis 5 MG Tablet 1 tablet Orally Twice a day Taking D3-1000 25 MCG (1000 UT) Capsule 1 capsule Orally Once a day Taking Furosemide 20 MG Tablet TAKE 1 TABLET BY MOUTH EVERY OTHER DAY Oral Taking Amiodarone HCl 200 MG Tablet TAKE 2 TABLETS BY MOUTH TWICE DAILY FOR 12 DAYS THEN TAKE 1 TABLET BY MOUTH DAILY Oral Taking traMADol HCl 50 MG Tablet 1 tablet Orally three times a day , stop date 09/14/2024Taking Cyclobenzaprine HCl 10 MG Tablet 1 tablet Orally every 8 hours , stop date 09/24/2024Taking dexAMETHasone 2 MG Tablet 1 tablet Orally twice a day Taking traMADol HCl 50 MG Tablet 1 tablet Orally three times a day , stop date 09/14/2024Medication List reviewed and reconciled with the patient * Allergies:?Amoxicillin: hive sSulfamethoxazole-Trimethoprim: hivesPenicillinno[Allergies Verified] Objective: * Vitals:?Ht: 63, Wt:151, BMI: 26.75, BP:142/88, HR:78, Temp:98.1, Ht-cm: 160.02, Wt-k.49. * Examination: ???General Examination: ?GENERAL APPEARANCE:?pleasant, well nourished, well developed, in no acute distress, calm and relaxed, overweight, elderly woman.?HEAD:?atraumatic, normocephalic.?EYES:?eomi, perrla, anicteric, conjugate.?EARS:?normal.?NOSE:?septum intact.?ORAL CAVITY:?normal, unremarkable.?NECK/THYROID:?no jugular venous distention, no carotid bruit, thyroid normal.?LYMPH NODES:?no enlarged lymph nodes,spleen normal.?SKIN:?no suspicious lesions, anicteric.?HEART:?no clicks, gallops, murmurs, or rubs, regular rhythm, S1, S2 normal, no s3, or vascular bruits.?LUNGS:?clear to auscultation .?BREASTS:?Not examined.?ABDOMEN:?bowel sounds normal, no ascites, no organomegaly, no mass, overweight.?RECTAL EXAM:?not examined.?MUSCULOSKELETAL:?extremities unremarkable, no clubbing, cyanosis or edema, Decreased range of motion lower thoracic and upper lumbar spine.?PERIPHERAL PULSES:?normal.?NEUROLOGIC:?alert and oriented, cranial nerves 2-12 grossly intact, deep tendon reflexes 2+ symmetrical, motor strength normal upper and lower extremities, sensory exam intact.?PSYCH:?alert, oriented.? Assessment: * Assessment: 1.?Compression fracture of L 2 vertebra with routine healing, subsequent encounter - S32.020D (Primary)???Notes :On July 20, 2024 at [facility] she underwent kyphoplasty for an L2 compression fracture. Over the last 2 weeks she has developed severe pain in her lumbar spine a radiates down her right leg into her knee. I have Given her tramadol 50 mg every 8 hours with a followup visit in 48 hours.I have referred her to pain management.? Further imaging and neurosurgery may be necessary.???2.?Early gastric cancer - C16.9???Notes :This was an incidental finding on upper endoscopy done and a biopsy a cystic pancreatic mass. She is going to arrange for resection with the surgeon next week.???3.?Malignant neoplasm of unspecified site of right female breast - C50.911???Notes :Is no sign of recurrence or relapse her new primary today.???4.?Hypothyroidism, unspecified - E03.9???Notes :She has been compliant with her medication. She appears to be euthyroid today. No change in her regimen was made.???5.?Atrial fibrillation, unspecified - I48.91???Notes :Her heart rate is well controlled today on no change in her regimen was made.???6.?Overweight - E66.3???Notes :She has lost an additional 9 pounds. She was continued on her current weight loss program. We reviewed her diet and nutrition. She is doing quite well.???7.?Anticoagulated - Z79.01???Notes :. There is no contraindication to this patient remaining on anticoagulation during the procedure. I have spoken to the surgical instrument technician at the ophthalmologists office. They do not require the anticoagulation to be held.???8.?Pancreatic mass - K86.9???Notes :The CA-19-9 is fluctuating but trending upward. On the current CT scan the pancreatic mass has become smaller and the nodules in the liver are stable. However, the pancreatic duct is dilated and there are dilated intrahepatic bile ducts associated with pancreatic atrophy. She will need referral to GI for evaluation and diagnosis. She may need to have surgery on the pancreas.???9.?Sjoegren syndrome - M35.00???Notes :This problem is well controlled with oral medication.???10.?Hodgkins disease - C81.90???Notes :There is no adenopathy. She continues in a durable remission.???11.?Former smoker - Z87.891???Notes :She is highly motivated not to smoke. We have discussed strategies for maintenance of abstinence in times of stress and illness.??? Plan: * Treatment: 2.?Hodgkins disease? Continue Calcium Carbonate Tablet, 1500 (600 Ca) MG, 1 tablet with food, Orally, Twice a day;?Continue FeroSul Tablet, 325 (65 Fe) MG, TAKE 1 TABLET BY MOUTH EVERY DAY;?Continue Melatonin Tablet, 1 MG, 1 tablet at bedtime as needed, Orally, Once a day;?Continue Aspirin 81 Tablet Delayed Release, 81 MG, 1 tablet, Orally, Once a day;?Continue Eliquis Tablet, 5 MG, 1 tablet, Orally, Twice a day;?Continue D3-1000 Capsule, 25 MCG (1000 UT), 1 capsule, Orally, Once a day;?Continue Furosemide Tablet, 20 MG, TAKE 1 TABLET BY MOUTH EVERY OTHER DAY, Oral;?Continue Amiodarone HCl Tablet, 200 MG, TAKE 2 TABLETS BY MOUTH TWICE DAILY FOR 12 DAYS THEN TAKE 1 TABLET BY MOUTH DAILY, Oral;?Continue traMADol HCl Tablet, 50 MG, 1 tablet, Orally, three times a day;?Continue Cyclobenzaprine HCl Tablet, 10 MG, 1 tablet, Orally, every 8 hours;?Continue dexAMETHasone Tablet, 2 MG, 1 tablet, Orally, twice a day;?Continue traMADol HCl Tablet, 50 MG, 1 tablet, Orally, three times a day.?? 3.?Others? Continue Gabapentin Capsule, 300 MG, 1 capsule, Orally, three times a day;?Continue dexAMETHasone Tablet, 2 MG, 1 tablet, Orally, twice a day;?Continue Levothyroxine Sodium Tablet, 100 MCG, TAKE 1 TABLET DAILY;?Continue Simvastatin Tablet, 40 MG, TAKE 1 TABLET EVERY EVENING;?Continue traZODone HCl Tablet, 150 MG, TAKE 1 TABLET BY MOUTH EVERY NIGHT AT BEDTIME;?Continue Metoprolol Tartrate Tablet, 25 MG, TAKE 1 TABLET 2 TIMES DAILYWITH FOOD;?Continue Alendronate Sodium Tablet, 70 MG, TAKE 1 TABLET BY MOUTH 1 TIME A WEEK 30 MINUTES BEFORE FIRST FOOD OR BEVERAGE OR MEDICINE OF THE DAY WITH WATER;?Continue levoFLOXacin Tablet, 500 MG, 1 tablet, Orally, Once a day.? Referral To:Pain Management [facility]??Pain Medicine ?Reason:severe pain right leg due to L 2 compression fracture after vertebroplasty * Procedure Codes:? * Preventive Medicine:? ??Counseling:?Care goal follow-up plan:?Counseling for abnormal BMI given?Yes ?Above Normal BMI Follow-up?Dietary management education, guidance, and counseling, Dietary needs education * Follow Up:?TV Saturday (Milagro son: TV check pain) * Images: * Sign off status: Completed true * Provider:?Demetrius Cote MD Date:?09/2024 Generated for Yoan moise/Kris/Willy on:?09/12/2024 08:35 AM EDT History and Physical Notes * HPI (History of Present Illness) Category Sub-Category Detail Notes COVID-19 Screening Questions Have you had any new onset fever, chills, cough, congestion, sore throat, shortness of breath, muscle aches?: No Examination Category Sub-Category Detail Notes General Examination GENERAL APPEARANCE: pleasant , well nourished, well developed, in no acute distress, calm and relaxed, overweight, elderly woman HEAD: atraumatic, normocep halic EYES: eomi, perrla, anicte beto, conjugate EARS: normal NOSE: septum intact NECK/THYROID: no jugular venous di stention, no carotid bruit, thyroid normal HEART: no clicks, gallops, murmurs, or rubs, regular rhythm, S1, S2 normal, no s3, or vascular bruits LUNGS: clear to auscultatio n ABDOMEN: bowel sounds normal, no ascites, no organomegaly, no mass, overweight NEUROLOGIC: alert and oriented, cranial nerves 2-12 grossly intact, deep tendon reflexes 2+ symmetrical, motor strength normal upper and lower extremities, sensory exam intact SKIN: no suspicious lesion s, anicteric PERIPHERAL PULSES: normal BREASTS: Not examined MUSCULOSKELETAL: extremities unremark able, no clubbing, cyanosis or edema, Decreased range of motion lower thoracic and upper lumbar spine LYMPH NODES: no enlarged lymph no maureen,spleen normal RECTAL EXAM: not examined PSYCH: alert, oriented ORAL CAVITY: normal, unremarkable Consultation Request Notes Referral Date Referring Provider Referred Provider Not es 09/07/2024 Demetrius Cote [facility], Pain Management severe pain right leg due to L 2 compression fracture after vertebroplasty
--- OUTSIDE RECORDS SUMMARY | 2024-09-12 08:36 | XMS_ITS | Patient Health Record ---
Author Organization Demetrius Cote III, MD Address [address] [facility] [place] [facility] [place] [address] Care Team Providers Care Microstrategy Architect Developer Name Role Phone Demetrius Cote Primary Care Provider Allergies Allergen (clinical drug ingredient) Drug/Non Drug Allergy documented on EMR Reaction Allergy Type Onset Date Status Penicillin Unknown Drug Allergy Active sulfamethoxazole / trimethoprim Sulfamethoxazole-Tri methoprim hives Drug Allergy Active amoxicillin Amoxicillin hives Drug Allergy Act anmol Results Component Value Reference Range Notes URINE DIP STICK Reviewed date:03/24/2024 06:03:54 AM [...] date:07/09/2024 08:39:37 PM Interpretation: Performing Lab: Notes/Report: [facility] [address] [place] [address] Nuclear Medicine Report Signed Patient: Kayla Cheung MR#: [id number] : 1945 Acct:[id number] Age/Sex: 79 / F ADM Date: 07/09/24 Loc: CELINA Attending Dr: Demetrius Cote MD Ordering Physician: Demetrius Cote MD Date of Service: 07/09/24 Procedure(s): NM bone scan limited area Accession Number(s): [id number] cc: Demetrius Cote MD EXAMINATION: BONE SCAN [...] by: Idris Perez MD 07/09/2024 02:53 PM [facility] Dictated By: Idris Perez MD Signed By: <Electronically signed by Idris Perez MD in OV> 07/09/24 1453 DD/ 1015 TD/TT: 07/09/24 1400 Joggle Press Operator: [place] [address] Nuclear Medicine Report Signed Patient: Kayla Cehung MR#: [id number] : 1945 Acct:[id number] Age/Sex: 79 / F ADM Date: 07/09/24 Loc: CELINA Attending Dr: Demetrius Cote MD Ordering Physician: Demetrius Cote MD Date of Service: 07/09/24 Procedure(s): NM bon e scan limited area Accession Number(s): [id number] cc: Demetrius Cote MD EXAMINATION: BONE SCAN [...] 07/09/24 1453 DD/ 1015 TD/TT: 07/09/24 1400 Joggle Press Operator: [facility] [place] Complete Blood Count Auto Di ff Reviewed date:03/24/2024 06:03:54 AM Interpretation: Performing Lab:[facility], [address] [place] [address] Notes/Report: White Blood Count 8.0 4.8-10.8 X10*3/uL [...] NRBC Abs Auto 0.000 0.0-0.012 X10*3/uL Comprehensive [place]. Panel Fa st Reviewed date:03/24/2024 06:03:54 AM Interpretation: Performing Lab:[address] [address] Notes/Report: Sodium 139 135-145 mmol/L Potassium 4.9 [...] Panel Reviewed date:03/24/2024 06:03:54 AM Interpretation: Performing Lab:[address] [address] Notes/Report: Triglycerides 45 <150 mg/dL Desirable Triglyceride: [...] 19-9 Reviewed date:03/30/2024 10:13:09 AM Interpretation: Performing Lab:[address] [address] Notes/Report: Carbohydrate Antigen 19-9 54 <34 U/mL This test was performed using the Siemens chemiluminescent method. Values obtained from different assay methods cannot be used interchangeably. CA 19-9 levels, regardless of value, should not be interpreted as absolute evidence of the presence or absence of disease. THIS TEST WAS PERFORMED AT: [employer] [address] [place] [phone] ANNAMARIA EVANS MD Complete Blood Count Auto Di ff Reviewed date:04/24/2024 11:20:45 AM Interpretation: Performing Lab:[address] [address] Notes/Report: White Blood Count 5.7 4.8-10.8 X10*3/uL [...] Panel Reviewed date:04/24/2024 11:20:45 AM Interpretation: Performing Lab:[address] [address] Notes/Report: Sodium 141 135-145 mmol/L Potassium 4.7 [...] 19-9 Reviewed date:04/24/2024 11:20:45 AM Interpretation: Performing Lab:[address] [address] Notes/Report: Carbohydrate Antigen 19-9 49 <34 U/mL This test was performed using the Siemens chemiluminescent method. Values obtained from different assay methods cannot be used interchangeably. CA 19-9 levels, regardless of value, should not be interpreted as absolute evidence of the presence or absence of disease. THIS TEST WAS PERFORMED AT: [employer] [address] [place] [phone] abdomen w con Reviewed date:04/24/2024 11:20:45 AM Interpretation: Performing Lab: Notes/Report: [address] [address] [address] Scan Report Signed Patient: Kayla Cheung MR#: [id number] : 1945 Acct:[id number] Age/Sex: 78 / F ADM Date: 04/16/24 Loc: .CT Attending Dr: Demetrius Cote MD Ordering Physician: Demetrius Cote MD Date of Service: 04/16/24 Procedure(s): CT abdomen w IV con Accession Number(s): [id number] cc: Demetrius Cote MD EXAMINATION: CT ABDOMEN [...] By: <Electronically signed by Horace Park Jr, DO in OV> 04/17/24 1450 DD/ 1508 TD/TT: 04/16/24 1525 Joggle Press Operator: [place] [address] CT Scan Report Signed Patient: Kayla Cheung MR#: [id number] : 1945 Acct:[id number] Age/Sex: 78 / F ADM Date: 04/16/24 Loc: .CT Attending Dr: Demetrius Cote MD Ordering Physician: Demetrius Cote MD Date of Service: 04/16/24 Procedure(s): CT abdomen w IV con Accession Number(s): [id number] cc: Demetrius Cote MD EXAMINATION: CT ABDOMEN [...] By: <Electronically signed by Horace Park Jr, DO in OV> 04/17/24 1450 DD/ 1508 TD/TT: 04/16/24 1525 Joggle Press Operator: BERT XR lumbar spine 2-3V Reviewed date:06/24/2024 03:42:39 PM Interpretation: Performing Lab: Notes/Report: [address] [address] XRay Report Signed Patient: Kayla Cheung MR#: [id number] : 1945 Acct:[id number] Age/Sex: 79 / F ADM Date: 06/24/24 Loc: .ED Attending Dr: Ordering Physician: Generic ED Physician Date of Service: 06/24/24 Procedure(s): XR lumbar spine 2-3V Accession Number(s): [id number] cc: Demetrius Cote MD; Generic ED Physician [...] by: Tristin Posadas MD 06/24/2024 09:28 AM EST Dictated By: Tristin Posadas MD Signed By: <Electronically signed by Tristin Posadas MD in OV> 06/24/2428 DD/ 3 TD/TT: 06/24/249[address] Joggle Press Operator: [address] [address] XRay Report Signed Patient: Kayla Cheung MR#: [id number] : 1945 Acct:[id number] Age/Sex: 79 / F ADM Date: 06/24/24 Loc: HO.ED Attending Dr: Ordering Physician: Generic ED Physician Date of Service: 06/24/24 Procedure(s): XR lum bar spine 2-3V Accession Number(s): [id number] cc: Demetrius Cote MD; Generic ED Physician [...] by: Tristin Posadas MD 06/24/2024 09:28 AM [facility] Dictated By: Tristin Posadas MD Signed By: <Electronically signed by Tristin Posadas MD in OV> 06/24/2428 DD/ 0904 TD/TT: 06/24/24 0914 Joggle Press Operator: XR sacrum coccyx min 2V Reviewed date:06/24/2024 03:42:39 PM Interpretation: Performing Lab: Notes/Report: [address] [address] XRay Report Signed Patient: Kayla Cheung MR#: [id number] : 1945 Acct:[id number] Age/Sex: 79 / F ADM Date: 06/24/24 Loc: HO.ED Attending Dr: Ordering Physician: Generic ED Physician Date of Service: 06/24/24 Procedure(s): XR sacrum coccyx min 2V Accession Number(s): [id number] cc: Demetrius Cote MD; Generic ED Physician [...] Tristin Posadas MD 06/24/2024 09:22 AM EST Dictated By: Tristin Posadas MD Signed By: <Electronically signed by Tristin Posadas MD in OV> 06/24/24921 DD/ 3 TD/TT: 06/24/24913 Joggle Press Operator: [place] [address] XRay Report Signed Patient: Kayla Cheung MR#: [id number] : 1945 Acct:[id number] Age/Sex: 79 / F ADM Date: 06/24/24 Loc: .ED Attending Dr: Ordering Physician: Generic ED Physician Date of Service: 06/24/24 Procedure(s): XR sac rum coccyx min 2V Accession Number(s): [id number] cc: Demetrius Cote MD; Generic ED Physician [...] by: Tristin Posadas MD 06/24/2024 09:22 AM [facility] Dictated By: Tristin Posadas MD Signed By: <Electronically signed by Tristin Posadas MD in OV> 06/24/[address] DD/ 3 TD/TT: 06/24/24913 Joggle Press Operator: Complete Blood Count Auto Di ff Reviewed date:07/21/2024 12:18:28 PM Interpretation: Performing Lab:[facility], [address] [place] [address] Notes/Report: White Blood Count 7.5 4.8-10.8 X10*3/uL [...] INR Reviewed date:07/21/2024 12:18:28 PM Interpretation: Performing Lab:[address] [address] Notes/Report: Prothrombin Time 12.2 10.9-12.4 SEC INTERNATIONAL [...] Time Reviewed date:07/21/2024 12:18:28 PM Interpretation: Performing Lab:[facility], [address] [place] [phone] Notes/Report: Partial Thromboplastin Time 28.9 26.0-36.8 SEC For information regarding the monitoring of direct thrombin inhibitors, please refer to Pharmacy. Basic Metabolic Panel Reviewed date:07/21/2024 12:18:28 PM Interpretation: Performing Lab:[address] [address] Notes/Report: Sodium 132 135-145 mmol/L Potassium 4.2 [...] date:07/22/2024 08:48:26 PM Interpretation: Performing Lab: Notes/Report: [address] [address] Interventional Radiology Rpt Signed Patient: Kayla Cheung MR#: [id number] : 1945 Acct:[id number] Age/Sex: 79 / F ADM Date: 07/20/24 Loc: HO[facility] Attending Dr: Demetrius Cote MD Ordering Physician: Demetrius Cote MD Date of Service: 07/20/24 Procedure(s): IR kyphoplasty lumbar Accession Number(s): [id number] cc: Demetrius Cote MD; Physician,Unknown Examination: L2 [...] 07/22/24 1526 DD/ 1330 TD/TT: 07/20/24 1549 Joggle Press Operator: [place] [address] Interventional Radiology Rpt Signed Patient: Kayla Cheung MR#: [id number] : 1945 Acct:[id number] Age/Sex: 79 / F ADM Date: 07/20/24 Loc: HO.SSS Attending Dr: Demetrius Cote MD Ordering Physician: Demetrius Cote MD Date of Service: 07/20/24 Procedure(s): IR kyphoplasty lumbar Accession Number(s): [id number] cc: Demetrius Cote MD; Physician,Unknown Examination: L2 [...] MD Signed By: <Electronically signed by Idris Preez MD in OV> 07/22/24 1526 DD/ 1330 TD/TT: 07/20/24 1549 Joggle Press Operator: TRUPTI MM tomosynthesis screening L T (Not yet reviewed by provider) Interpretation: Performing Lab: Notes/Report: [facility] [address] [place] [address] Mammography Report Signed Patient: Kayla Cheung MR#: [id number] : 1945 Acct:[id number] Age/Sex: 79 / F ADM Date: 08/17/24 Loc: HO.MAMMO Attending Dr: Demetrius Cote MD Ordering Physician: Demetrius Cote MD Results: 1Negativ e Date of Service: 08/17/24 Follow Up: 1 Year From Orig inal Mammogram Procedure(s): MM tomosynthesis screening LT Accession Number(s): [id number] cc: Demetrius Coet MD EXAMINATION: MM SCREENING DIGITAL BREAST TOMOSYNTHESIS, BILATERAL CLINICAL INFORMATION: Screening. Asymptomatic. Right Mastectomy 2015. COMPARISON: Mammography: This study is compared with prior exams dating back to TECHNIQUE: Digital breast tomosynthesis is performed in both the craniocaudal and mediolateral oblique views along with computer-aided detection (CAD). Synthesized 2D images are generated from the tomosynthesis. FINDINGS: There are scattered areas of fibroglandular density (ACR BI-RADS breast composition Category b). There are no significant masses, abnormal calcifications, or other abnormalities. MM/MM tomosynthesis screening LT IMPRESSION: No mammographic evidence of malignancy. ASSESSMENT: BI-RADS BI-RADS 1 - Negative RECOMMENDATION: Routine annual mammography screening. 1 year F/U This examination should not preclude the clinical evaluation of a suspicious palpable abnormality. This patient's information was entered into a reminder system with a target due date for their next mammogram. Electronically signed by: Ro Dodd DO 08/25/2024 02:59 PM EDT Dictated By: Ro Dodd DO Signed By: <Electronically signed by Ro Dodd DO in OV> 08/25/24 1459 DD/ 0850 TD/TT: 08/17/24 0908 Joggle Press Operator: [facility] [address] [place] [address] Mammography Report Signed Patient: Kayla Cheung MR#: [id number] : 1945 Acct:[id number] Age/Sex: 79 / F ADM Date: 08/17/24 Loc: HO.MAMMO Attending Dr: Demetrius Cote MD Ordering Physician: Demetrius Cote MD Results: 1Negativ e Date of Service: 08/17/24 Follow Up: 1 Year From Orig inal Mammogram Procedure(s): MM tomosynthesis screening LT Accession Number(s): [id number] cc: Demetrius Cote MD EXAMINATION: MM SCREENING DIGITAL BREAST TOMOSYNTHESIS, BILATERAL CLINICAL INFORMATION: Screening. Asymptomatic. Right Mastectomy 2015. COMPARISON: Mammography: This st udy is compared with prior exams dating back to TECHNIQUE: Digital breast tomosynthesis is performed in both the craniocaudal and mediolateral oblique views along with computer-aided detection (CAD). Synthesized 2D image s are generated from the tomosynthesis. FINDINGS: There are scattered areas of fibroglandular density (ACR BI-RADS breast composition Category b). There are no significant masses, abnormal calcifications, or other abnormalities. MM/MM tomosynthesis screening LT IMPRESSION: No mammographic evidence of malignancy. ASSESSMENT: BI-RADS BI-RADS 1 - Negative RECOMMENDATION: Routine annual mammography screening. 1 year F/U This examination cari uld not preclude the clinical evaluation of a suspicious palpable abnormality. This patient's information was entered into a reminder system with a target due date for their next mammogram. Electronically hamida d by: Ro Dodd DO 08/25/2024 02:59 PM EDT RP Dictated By: Ro Dodd DO Signed By: <Electronically signed by Ro Dodd DO in OV> 08/25/24 1459 DD/ 0850 TD/TT: 08/17/24 0908 Joggle Press Operator: Reason For Referral Reason mass head of pancrea s pancreatic atrophy new dilation of pancreatic duct evaluate and treat Diagnosis 1 Pancreatic mass (K86 .9) Referral Organization Demetrius Cote III, MD Referring Provider First Name Demetrius Referring Provider Last Name Kera Referring Provider Speciality Internal M edicine Referred Organization [facility] Address [address] [place] [phone], Referred Provider Specialty Gastroentero logy General Notes Magdalena Greenwood CMA 04/27 04:21:07 PM >ref/demo/progress notes/labs/x rays faxed to Dr Oseguera office at [phone] per Candido at the office .Geremias Amber 05/01/2024 02:51:36 PM > Spoke with Cayla at [facility], she stated they did receive the [...] they needed this faxed to them at [phone]. This was done today . ATTN: Timo Moreland Suzanne CMA 05/11/2024 10:44:25 AM > Spoke to Tosha at Dr Oseguera office they stated they just had the images from uploaded so Dr Oseguera can review gastro then will call patient within next few days with appt information, Magdalena Greenwood CMA 05/14/2024 11:48:53 AM >called [...] Internal M edicine [facility]erred Provider Specialty Unknown General Notes Shana Archuleta 06/08/2024 01:34:22 PM > referral faxed Referral Priority Routine Referral Appointment Date 06/10/2024 Reason severe pain right le g due to L 2 compression fracture after vertebroplasty Diagnosis 1 Compression fracture of L2 vertebra with routine healing, subsequent encounter (S32.020D) Diagnosis 2 Right leg pain (M79. 604) Referral Organization Demetrius Cote III, MD Referring Provider First Name Demetrius Referring Provider Last Name Kera Referring Provider Speciality Internal M edicine Referred Provider [facility] Referred Provider Specialty Pain Medicin e General Notes Magdalena Greenwood CMA 09/09 01:17:42 PM > referral ,progress note, x ray reports faxed to [facility] . I called they stated they will review the referral and call patient to set up appt Referral Priority Routine Medications Medication SIG (Take, Route, Frequency, Duration) Notes Start Date End Date Status Alendronate Sodium 70 MG TAKE 1 TABLET B Y MOUTH 1 TIME A WEEK 30 MINUTES BEFORE FIRST FOOD OR BEVERAGE OR MEDICINE OF THE DAY WITH WATER Active traMADol HCl 50 MG 1 tablet Orally thre e times a day 09/04/2024 Active Metoprolol Tartrate 25 MG TAKE 1 TABLET 2 TIMES DAILYWITH FOOD Active dexAMETHasone 2 MG 1 tablet Orally twic e a day 09/04/2024 Active Melatonin 1 MG 1 tablet at bedtime as needed Orally Once a day Active levoFLOXacin 500 MG 1 tablet Orally Once a day 09/10/2023 Active Levothyroxine Sodium 100 MCG TAKE 1 TABLET DAILY Active FeroSul 325 (65 Fe) MG TAKE 1 TABLET BY MOUTH EVERY DAY Active traZODone HCl 150 MG TAKE 1 TABLET BY MO UTH EVERY NIGHT AT BEDTIME Active Cyclobenzaprine HCl 10 MG 1 tablet Orall y every 8 hours 09/04/2024 Active Simvastatin 40 MG TAKE 1 TABLET EVERY EVENING Active Amiodarone HCl 200 MG TAKE 2 TABLETS BY MOUTH TWICE DAILY FOR 12 DAYS THEN TAKE 1 TABLET BY MOUTH DAILY Oral Active Eliquis 5 MG 1 tablet Orally Twic e a day Active Aspirin 81 81 MG 1 tablet Orally Once a day Active Furosemide 20 MG TAKE 1 TABLET BY JOSÉ TH EVERY OTHER DAY Oral Active D3-1000 25 MCG (1000 UT) 1 capsule Orall y Once a day Active Calcium Carbonate 1500 (600 Ca) MG 1 tablet with food Orally Twice a day Active dexAMETHasone 2 MG 1 tablet Orally twic e a day 06/23/2024 Active Gabapentin 300 MG 1 capsule Orally thr ee times a day 06/23/2024 Active Immunizations Vaccine Route Administration Date Status [...] Problem Status W/U Status Risk Notes Problem 9714302 Former smoker (Z87.891) Active confirmed She is highly motivated not to smoke. We have discussed strategies for maintenance of abstinence in times of stress and illness. Problem 861388955 Obesity (E66.9) Active confirmed She has continue her efforts at weight loss and gain prevention. We reviewed her weight loss strategy today. Problem 377211169 Overweight (E66.3) Active confirmed She has lost an additional 9 pounds. She was continued on her current weight loss program. We reviewed her diet and nutrition. She is doing quite well. Problem Malignant neoplasm of female breast (928212728) Malignant neoplasm of unspecified site of right female breast (C50.911) Active confirmed Is no sign of recurrence or relapse her new primary today. Problem Hypothyroidism (78066007) Hypothyroidism, unspecified (E03.9) Active confirmed She has been compliant with her medication. She appears to be euthyroid today. No change in her regimen was made. Problem 011700710 Calculus of gallbladder without cholecystitis without obstruction (K80.20) Active confirmed Her gallstones were asymptomatic and now is no sign of cholecystitis today. She will be observed cautiously. Problem Sicca syndrome (53387662) Sicca syndrome, unspecified (M35.00) Active confirmed The oral drynes s remains unchanged. She has been compliant with frequent visits to her dentist. Problem Atrial fibrillation (74824396) Atrial fibrillation, unspecified (I48.91) Active confirmed Her heart rate is well controlled today on no change in her regimen was made. Problem 539759414 Anticoagulated (Z79.01) Active confirmed . There is no contraindication to this patient remaining on anticoagulation during the procedure. I have spoken to the surgical dressing maker at the ophthalmologists office. They do not require the anticoagulation to be held. Problem 611875759 Hyperlipidemia type II (E78.0) Active confirmed Her lipids h ave been well controlled. Her fasting lipid profile will be ordered periodically. No change in her regimen was needed today. Problem 28639038 Atrial fibrillation (I48.91) Active confirmed She has been well controlled lately. She has been compliant with all of her medications. She was in a regular rhythm today Problem 361209417 Hodgkins disease (C81.90) Active confirmed There is no adenopathy. She continues in a durable remission. Problem 6580954 Psoriasis (L40.9) Active confirmed Her psoriasis i s very mild and does not require treatment at this time. Problem 131068917 Nonrheumatic aortic valve stenosis (I35.0) Active confirmed Her exercise tolerance is improved and she has no long-term side effects from repair of the aortic valve. He is under the care of the supervisor briar shop and compliant with her therapies. Problem 85902097 Hypothyroid (E03.9) Active confirmed Her TSH has bee n slightly elevated. If it remains this way on repeat her dose will be adjusted. Problem 364941295 Wedge compression fracture of T11 vertebra (S22.080A) Active confirmed Her pain has become minimally but it can be reproduced with percussion. No change in her regimen is needed. Problem 014090578 Marginal zone lymphoma (C85.80) Active confirmed There was no enlargement of the salivary gland or adenopathy or splenomegaly. She continues in a durable remission Problem 96855022 Sjoegren syndrome (M35.00) Active confirmed This problem is well controlled with oral medication. 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 No change in her regimen was needed. 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 The left breast is unremarkable. Problem Coagulopathy (53455886) Coagulopathy (D68.9) Active confirmed She has a history of pulmonary embolism and atrial fibrillation and is chronically anticoagulated. She has had no episodes of bleeding. She has had no further episodes of arterial clotting or venous thromboembolism. 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 A small hypodense lesion is seen measuring 1.8 x 1.1 cm which is unchanged. It will be followed radiographically at this time. Problem Pancreatic mass (369464644) Pancreatic mass (K86.9) Active confirmed The CA-19-9 [...] on the pancreas. Problem Pure hypercholesterole tha (042619403) Hyperlipidemia type II (E78.01) Active confirmed Her most recent fasting lipid profile shows good control of her lipids. No change in her regimen as needed. Problem 414239408 Osteopenia after menopause (M81.0) Active confirmed She will have periodic bone densities. I recommended Os-Samy 500 mg twice a day. The thousand units of vitamin D daily. She will be evaluated periodically for alendronate. Problem hypercholesterole tha (disorder) (05208025) Hypercholestere tha (E78.00) Active confirmed Current fasting lipid profile shows good control of her lipids. Problem 05934258 Chronic congestive heart failure, unspecified heart failure type (I50.9) Active confirmed Her CHF is now well compensated and she is compliant with her medications. Cardiology follow-up has been arranged. Problem 1790394761608 S/P TAVR (transcatheter aortic valve replacement) (Z95.2) Active confirmed Her valve continues to work appropriately. No murmurs heard. 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 She is going to arrange for resection with the surgeon next week. Problem 95734201678693790 Compression fracture of L2 vertebra with routine healing, subsequent encounter (S32.020D) Active confirmed On July 20, 2024 at [facility] she underwent kyphoplasty for an L2 compression fracture. Over the last 2 weeks she has developed severe pain in her lumbar spine a radiates down her right leg into her knee. I have Given her tramadol 50 mg every 8 hours with a followup visit in 48 hours.I have referred her to pain management. Further imaging and neurosurgery may be necessary. Problem 92152105412746202 Non-traumatic compression fracture of L2 lumbar vertebra with routine healing, subsequent encounter (M48.56XD) Active confirmed She continues t o have 8/10 pain. The 100 mg dose of tramadol is slightly better than the 50 mg dose.She did not want a stronger medication such as codeine for oxycodone. We're waiting for pain management, to give her an appointment. Vital Signs Heart Rate 78 /min 09/07/2024 Temperature 98.1 degrees Fahrenheit 09/07/2024 Blood pressure diastolic 88 mm Hg 09/07/2024 Height 63 in 09/09/2024 Blood pressure systolic 142 mm Hg 09/07/2024 Weight 151 lbs 09/09/2024 BMI 26.75 kg/m2 09/09/2024 Encounters Encounter Location Date Provider Diagnosis Demetrius Cote III, MD [address] [place] [address] [place] [address] 09/13/2023 Demetrius Cote Hodgkins disease C81 .90 [...] asthmatic bronchitis J45.909 Demetrius Cote III, MD [address] [place] [address] [place] [address] 11/25/2023 Demetrius Cote Hodgkins disease C81 .90 [...] Atrial fibrillation 427.31 Demetrius Cote III, MD [address] [place] [address] [place] [address] 03/30/2024 Demetrius Cote Hodgkins disease C81 .90 [...] and Anticoagulated Z79.01 Demetrius Cote III, MD [address] [place] [address] [place] [address] 04/24/2024 Demetrius Cote Hodgkins disease C81 .90 ; Pancreatic mass K86.9 ; Former smoker Z87.891 ; Obesity E66.9 ; 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 ; Atrial fibrillation I48.91 ; Hypothyroid E03.9 ; Wedge compression fracture of T11 vertebra S22.080A ; 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 ; Sjoegren syndrome M35.00 and 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 Demetrius Cote III, MD [address] [place] [address] [place] [address] 09/04/2024 Demetrius Cote Hodgkins disease C81 .90 ; Compression fracture of L2 vertebra with routine healing, subsequent encounter S32.020D ; 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 ; Obesity E66.9 ; Wedge compression fracture of T11 vertebra S22.080A ; Sjoegren syndrome M35.00 ; 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 ; 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 ; Hypothyroid E03.9 ; Pancreatic mass K86.9 ; Nonrheumatic aortic valve stenosis I35.0 ; S/P TAVR (transcatheter aortic valve replacement) Z95.2 ; Anticoagulated Z79.01 ; Chronic congestive heart failure, unspecified heart failure type I50.9 ; 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 and Former smoker Z87.891 Demetrius Cote III, MD [address] [place] [address] [place] [address] 09/07/2024 Demetrius Cote Compression fracture of L2 vertebra with routine healing, subsequent encounter S32.020D ; 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 ; Malignant neoplasm of unspecified site of right female breast C50.911 ; Hypothyroidism, unspecified E03.9 ; Atrial fibrillation, unspecified I48.91 ; Overweight E66.3 ; Anticoagulated Z79.01 ; Pancreatic mass K86.9 ; Sjoegren syndrome M35.00 ; Hodgkins disease C81.90 and Former smoker Z87.891 Demetrius Cote III, MD [address] [place] [address] [place] [address] 09/09/2024 Demetrius Cote Non-traumatic compre ssion fracture of L2 lumbar vertebra with routine healing, subsequent encounter M48.56XD ; Former smoker Z87.891 ; Pancreatic mass K86.9 ; Obesity E66.9 ; 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 ; Atrial fibrillation I48.91 ; Wedge compression fracture of T11 vertebra S22.080A ; Hypothyroid E03.9 and 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 89 and Intraductal papillary mucinous neoplasm D49.0 Demetrius Cote III, MD [address] [place] [address] [place] [address] 04/27/2024 Demetrius oCte III, MD [address] [place] [address] [place] [address] 05/01/2024 Demetrius Cote III, MD [address] [place] [address] [place] [address] 06/08/2024 Demetrius Cote III, MD [address] [place] [address] [place] [address] 06/23/2024 Demetrius Cote III, MD [address] [place] [address] [place] [address] 06/23/2024 Demetrius Cote III, MD [address] [place] [address] [place] [address] 06/25/2024 Demetrius Cote III, MD [address] [place] [address] [place] [address] 07/01/2024 Demetrius Cote Wedge compression fr acture of T11 vertebra S22.080A ; Compression fracture of L2 vertebra, initial encounter S32.020A and History of osteopenia Z87.39 Demetrius Cote III, MD [address] [place] [address] [place] [address] 07/02/2024 Demetrius Cote III, MD [address] [place] [address] [place] [address] 07/03/2024 Demetrius Cote III, MD [address] [place] [address] [place] [address] 07/07/2024 Demetrius Cote Compression fracture of L2 vertebra, initial encounter S32.020A Demetrius Cote III, MD [address] [place] [address] [place] [address] 07/21/2024 Demetrius Cote III, MD [address] [place] [address] [place] [address] 09/04/2024 Demetrius Cote Assessments Encounter Date Diagnosis (ICD Code) Assessment Notes T reatment Notes Treatment Clinical Notes 09/13/2023 Hodgkins disease (ICD-10 - C81.90) There [...] need to have surgery on the pancreas. 09/04/2024 Hodgkins disease (ICD-10 - C81.90) 09/04/2024 Compression fracture of L2 vertebra with routine healing, subsequent encounter (ICD-10 - S32.020D) On July 20, 2024 at [facility] she underwent kyphoplasty or and L2 compression fracture. Over the last 2 weeks she has developed severe pain in her lumbar spine a radiates down her right leg into her knee. I have prescribed several medications today and given her a followup visit. She may need repeat imaging. 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 She is going to arrange for resection with the surgeon next week. 09/07/2024 Compression fracture of L2 vertebra with routine healing, subsequent encounter (ICD-10 - S32.020D) On July 20, 2024 at [facility] she underwent kyphoplasty for an L2 compression fracture. Over the last 2 weeks she has developed severe pain in her lumbar spine a radiates down her right leg into her knee. I have Given her tramadol 50 mg every 8 hours with a followup visit in 48 hours.I have referred her to pain management. Further imaging and neurosurgery may be necessary. 09/09/2024 Former smoker (ICD-1 0 - Z87.891) She is highly motivated not to smoke. We have discussed strategies for maintenance of abstinence in times of stress and illness. 09/09/2024 Non-traumatic compression fracture of L2 lumbar vertebra with routine healing, subsequent encounter (ICD-10 - M48.56XD) She continues to have 8/10 pain. The 100 mg dose of tramadol is slightly better than the 50 mg dose.She did not want a stronger medication such as codeine for oxycodone. We're waiting for pain management, to give her an appointment. 02/07/2024 Pancreatic mass (ICD -10 - K86.89) 07/01/2024 Wedge compression fracture of T11 vertebra (ICD-10 - S22.080A) 07/07/2024 Compression fracture of L2 vertebra, initial encounter (ICD-10 - S32.020A) 09/13/2023 Former smoker (ICD-1 0 - Z87.891) [...] abstinence in times of stress and illness. 09/04/2024 Invasive ductal carcinoma of right breast (ICD-10 - C50.911) The mastectomy site is free of any sign of relapse. The left breast is unremarkable. 09/07/2024 Malignant neoplasm o f unspecified site of right female breast (ICD-10 - C50.911) Is no sign of recurrence or relapse her new primary today. 09/09/2024 Pancreatic mass (ICD -10 - K86.9) The [...] to have surgery on the pancreas. 02/07/2024 Intraductal papillar y mucinous neoplasm (ICD-10 - D49.0) 07/01/2024 Compression fracture of L2 vertebra, initial encounter (ICD-10 - S32.020A) 09/13/2023 Wedge compression fracture of T11 vertebra [...] We reviewed her weight loss strategy today. 09/04/2024 Obesity (ICD-10 - E66.9) She has continue her efforts at weight loss and gain prevention. We reviewed her weight loss strategy today. 09/07/2024 Hypothyroidism, unspecified (ICD-10 - E03.9) She has been compliant with her medication. She appears to be euthyroid today. No change in her regimen was made. 09/09/2024 Obesity (ICD-10 - E66.9) She has continue her efforts at weight loss and gain prevention. We reviewed her weight loss strategy today. 07/01/2024 History of osteopeni a (ICD-10 - Z87.39) 09/13/2023 Marginal zone lympho ma (ICD-10 - [...] splenomegaly. She continues in a durable remission 09/04/2024 Wedge compression fracture of T11 vertebra (ICD-10 - S22.080A) Her pain has become minimally but it can be reproduced with percussion. No change in her regimen is needed. 09/07/2024 Atrial fibrillation, unspecified (ICD-10 - I48.91) Her heart rate is well controlled today on no change in her regimen was made. 09/09/2024 Marginal zone lympho ma (ICD-10 - C85.80) There was no enlargement of the salivary gland or adenopathy or splenomegaly. She continues in a durable remission 09/13/2023 Sjoegren syndrome (ICD-10 - M35.00) This [...] She was in a regular rhythm today 09/04/2024 Sjoegren syndrome (ICD-10 - M35.00) This problem is well controlled with oral medication. 09/07/2024 Overweight (ICD-10 - E66.3) She has lost an additional 9 pounds. She was continued on her current weight loss program. We reviewed her diet and nutrition. She is doing quite well. 09/09/2024 Atrial fibrillation (ICD-10 - I48.91) She has been well controlled lately. She has been compliant with all of her medications. She was in a regular rhythm today 09/13/2023 Psoriasis (ICD-10 - L40.9) Her psoriasis [...] on repeat her dose will be adjusted. 09/04/2024 Right knee DJD (ICD- 10 - M17.9) The pain in her right knee is mild to moderate and unchanged. No change in her regimen was needed. 09/07/2024 Anticoagulated (ICD- 10 - Z79.01) . There is no contraindication to this patient remaining on anticoagulation during the procedure. I have spoken to the surgical dressing maker at the ophthalmologists office. They do not require the anticoagulation to be held. 09/09/2024 Wedge compression fracture of T11 vertebra (ICD-10 - S22.080A) Her pain has become minimally but it can be reproduced with percussion. No change in her regimen is needed. 09/13/2023 Right knee DJD (ICD- 10 - [...] No change in her regimen is needed. 09/04/2024 Marginal zone lympho ma (ICD-10 - C85.80) There was no enlargement of the salivary gland or adenopathy or splenomegaly. She continues in a durable remission 09/07/2024 Pancreatic mass (ICD -10 - K86.9) The [...] need to have surgery on the pancreas. 09/09/2024 Hypothyroid (ICD-10 - E03.9) Her TSH has been slightly elevated. If it remains this way on repeat her dose will be adjusted. 09/13/2023 Hypothyroid (ICD-10 - E03.9) Her TSH [...] of relapse. The left breast is unremarkable. 09/04/2024 Hypothyroid (ICD-10 - E03.9) Her TSH has been slightly elevated. If it remains this way on repeat her dose will be adjusted. 09/07/2024 Sjoegren syndrome (ICD-10 - M35.00) This problem is well controlled with oral medication. 09/09/2024 Invasive ductal carcinoma of right breast (ICD-10 - C50.911) The mastectomy site is free of any sign of relapse. The left breast is unremarkable. 09/13/2023 Atrial fibrillation (ICD-10 - I48.91) She [...] problem is well controlled with oral medication. 09/04/2024 Pancreatic mass (ICD -10 - K86.9) The [...] to have surgery on the pancreas. 09/07/2024 Hodgkins disease (ICD-10 - C81.90) There is no adenopathy. She continues in a durable remission. 09/13/2023 Nonrheumatic aortic valve stenosis (ICD-10 - I35.0) Her exercise tolerance is improved and she has no long-term side effects from repair of the aortic valve. He is under the care of the supervisor [employer] and compliant with her therapies. 11/25/2023 Angiomyolipoma [...] No change in her regimen was needed. 09/04/2024 Nonrheumatic aortic valve stenosis (ICD-10 - I35.0) Her exercise tolerance is improved and she has no long-term side effects from repair of the aortic valve. He is under the care of the supervisor [employer] and compliant with her therapies. 09/07/2024 Former smoker (ICD-1 0 - Z87.891) She is highly motivated not to smoke. We have discussed strategies for maintenance of abstinence in times of stress and illness. 09/13/2023 Anticoagulated (ICD- 10 - Z79.01) . There is no contraindication to this patient remaining on anticoagulation during the procedure. I have spoken to the surgical dressing maker at the ophthalmologists office. They do not [...] continues to work appropriately. No murmurs heard. 09/04/2024 S/P TAVR (transcathe ter aortic valve replacement) (ICD-10 - Z95.2) Her valve continues to work appropriately. No murmurs heard. 09/13/2023 Acute asthmatic bronchitis (ICD-10 - J45.909) [...] procedure. I have spoken to the surgical dressing maker at the ophthalmologists office. They do not require the anticoagulation to be held. 09/04/2024 Anticoagulated (ICD- 10 - Z79.01) . There is no contraindication to this patient remaining on anticoagulation during the procedure. I have spoken to the surgical dressing maker at the ophthalmologists office. They do not require the anticoagulation to be held. 11/25/2023 S/P TAVR (transcathe ter aortic valve replacement) (ICD-10 - Z95.2) Her valve continues to work appropriately. No murmurs heard. 09/04/2024 Chronic congestive heart failure, unspecified heart failure type (ICD-10 - I50.9) Her CHF is now well compensated and she is compliant with her medications. Cardiology follow-up has been arranged. 11/25/2023 Hypercholesteremia (ICD-10 - E78.00) Current fasting lipid profile shows good control of her lipids. 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 She is going to arrange for resection with the surgeon next week. 11/25/2023 Hypothyroid (ICD-10 - E03.9) Her TSH has been slightly elevated. If it remains this way on repeat her dose will be adjusted. 09/04/2024 Former smoker (ICD-1 0 - Z87.891) She is highly motivated not to smoke. We have discussed strategies for maintenance of abstinence in times of stress and illness. 11/25/2023 Atrial fibrillation (ICD9-CM - 427.31) Rhythm is regular today and no change in her regimen as necessary. Plan Of Treatment Pending Test Test Name Order Date PROFILE, FASTING (COMPREHENSIVE METABOLI C) 11/19/2022 PROFILE, FASTING (COMPREHENSIVE METABOLI C) 03/13/2017 PROFILE, FASTING (COMPREHENSIVE METABOLI C) 12/12/2016 PROFILE, FASTING (COMPREHENSIVE METABOLI C) 07/17/2017 PROFILE, FASTING (COMPREHENSIVE METABOLI C) 06/10/2023 PROFILE, FASTING (COMPREHENSIVE METABOLI C) 11/25/2023 PROFILE, FASTING (COMPREHENSIVE METABOLI C) 06/05/2021 PROFILE, FASTING (COMPREHENSIVE METABOLI C) 08/20/2018 PROFILE, FASTING (COMPREHENSIVE METABOLI C) 01/15/2019 PROFILE, FASTING (COMPREHENSIVE METABOLI C) 05/27/2018 PROFILE, FASTING (COMPREHENSIVE METABOLI C) 10/28/2019 PROFILE, FASTING (COMPREHENSIVE METABOLI C) 09/09/2023 PROFILE, FASTING (COMPREHENSIVE METABOLI C) 02/02/2022 PROFILE, FASTING (COMPREHENSIVE METABOLI C) 02/06/2023 PROFILE, RANDOM (COMPREHENSIVE METABOLIC ) 11/04/2018 PROFILE, RANDOM (COMPREHENSIVE METABOLIC ) 12/20/2021 PROFILE, RANDOM (COMPREHENSIVE METABOLIC ) 09/22/2020 PROFILE, RANDOM (COMPREHENSIVE METABOLIC ) 09/20/2020 PROFILE, RANDOM (COMPREHENSIVE METABOLIC ) 06/02/2020 PROFILE, RANDOM (COMPREHENSIVE METABOLIC ) 03/10/2020 PROFILE, RANDOM (COMPREHENSIVE METABOLIC ) 02/07/2024 PROFILE, RANDOM (COMPREHENSIVE METABOLIC ) 07/08/2019 PROFILE, RANDOM (COMPREHENSIVE METABOLIC ) 04/08/2019 AMYLASE 09/22/2020 LIPASE 09/22/2020 LIPID PANEL 02/02/2022 LIPID PANEL 02/06/2023 LIPID PANEL 11/19/2022 LIPID PANEL 03/13/2017 LIPID PANEL 12/12/2016 LIPID PANEL 07/17/2017 LIPID PANEL 06/02/2020 LIPID PANEL 03/10/2020 LIPID PANEL 08/20/2018 LIPID PANEL 01/15/2019 LIPID PANEL 05/27/2018 LIPID PANEL 07/08/2019 LIPID PANEL 04/08/2019 LIPID PANEL 10/28/2019 GGT 09/20/2020 GGT 06/05/2021 GGT 09/22/2020 LDH 02/06/2023 LDH 11/19/2022 LDH 03/13/2017 LDH 07/17/2017 LDH 06/10/2023 LDH 01/15/2019 FREE T4 (FT4) 07/08/2019 FREE T4 (FT4) 04/08/2019 FREE T4 (FT4) 01/15/2019 FREE T4 (FT4) 02/02/2022 FREE T4 (FT4) 02/06/2023 FREE T4 (FT4) 12/12/2016 FREE T4 (FT4) 06/02/2020 FREE T4 (FT4) 07/17/2017 FREE T4 (FT4) 06/10/2023 FREE T4 (FT4) 03/10/2020 FREE T4 (FT4) 06/05/2021 FREE T4 (FT4) 08/20/2018 FREE T4 (FT4) 05/27/2018 TSH (THYROID STIMULATING HORMONE) 2020 TSH (THYROID STIMULATING HORMONE) 2017 TSH (THYROID STIMULATING HORMONE) 2023 TSH (THYROID STIMULATING HORMONE) 2019 TSH (THYROID STIMULATING HORMONE) 2021 TSH (THYROID STIMULATING HORMONE) 2018 TSH (THYROID STIMULATING HORMONE) 2018 TSH (THYROID STIMULATING HORMONE) 2019 TSH (THYROID STIMULATING HORMONE) 2018 TSH (THYROID STIMULATING HORMONE) 2018 TSH (THYROID STIMULATING HORMONE) 2021 TSH (THYROID STIMULATING HORMONE) 2022 TSH (THYROID STIMULATING HORMONE) 2016 TSH (THYROID STIMULATING HORMONE) 2023 FERRITIN 09/20/2020 CEA 06/05/2021 CBC w DIFF 09/20/2020 CBC w DIFF 10/28/2019 CBC w DIFF 11/04/2018 CBC w DIFF 06/02/2020 CBC w DIFF 07/17/2017 CBC w DIFF 03/10/2020 CBC w DIFF 08/20/2018 CBC w DIFF 05/27/2018 CBC w DIFF 12/20/2021 CBC w DIFF 07/08/2019 CBC w DIFF 04/08/2019 CBC w DIFF 06/05/2021 CBC w DIFF 01/15/2019 CBC w DIFF 11/19/2022 CBC w DIFF 11/25/2023 CBC w DIFF 02/02/2022 CBC w DIFF 03/13/2017 CBC w DIFF 02/07/2024 CBC w DIFF 02/06/2023 CBC w DIFF 12/12/2016 SED RATE (ESR) 02/06/2023 SED RATE (ESR) 09/09/2023 SED RATE (ESR) 09/22/2020 SED RATE (ESR) 10/28/2019 SED RATE (ESR) 07/17/2017 SED RATE (ESR) 07/08/2019 SED RATE (ESR) 11/19/2022 SED RATE (ESR) 02/02/2022 SED RATE (ESR) 03/13/2017 HEPATITIS A,B,C PROFILE 09/20/2020 ALPHA-FETOPROTEIN,TUMOR MARKER CARBOHYDRATE ANTIGEN 19-9 (CA 19-9) 09/2023 CARBOHYDRATE ANTIGEN 19-9 (CA 19-9) 08/2022 CA 27.29 03/13/2017 CA 27.29 09/22/2020 CA 27.29 11/04/2018 CA 27.29 08/20/2018 LYME DISEASE IgG/IgM WB 08/20/2018 CT ABD WITH CONTRAST 09/26/2022 CT ABD WITH CONTRAST 12/20/2021 XR LUMBAR SPINE 09/26/2022 XR PELVIS 09/26/2022 MAMMOGRAM DIGITAL UNILATERAL MANUELITO LT 06/07 VITAMIN D 25-OH TOTAL 02/02/2022 VITAMIN D 25-OH TOTAL 08/20/2018 CBC WITH AUTO DIFF 09/09/2023 CBC WITH AUTO DIFF 06/10/2023 Lipid Panel 06/10/2023 Lipid Panel 06/05/2021 Lipid Panel 11/25/2023 Lipase 06/05/2021 Carbohydrate Antigen 19-9 11/25/2023 Carbohydrate Antigen 19-9 02/02/2022 Carbohydrate Antigen 19-9 12/20/2021 IR kyphoplasty lumbar 07/01/2024 MM tomosynthesis screening LT 08/17/2024 Next Appt Details Provider Name:Demetrius Cote, 09/16/2024 01:45:00 PM, [address] [place] [address] [address], [place], [address], Provider Name:Demetrius Cote, 11/26/2024 09:30:00 AM, [address] [place] [address] [address], [place], [address], Insurance Providers Payer Name Payer Address Payer Phone Subscriber Number Group Number Insured Name Patient Relationship to Insured Coverage Start Date Coverage End Date MEDICARE NGS [address] [place] [phone] [id number] Kayla Cheung Self - patient is the insured [facility] [address] [place], [place] [id number] [phone] [id number] Self - patient is the insured Medical (General) History Medical History History ICD Code nulliparous psoriasis hodgkins [id number] sjogren's syndrome 2000 insomnia Hypothyroidism DJD of the right knee marginal zone lymphoma 2006 tia 10/2011 bradycardia 10/2011 afib last mammogram @[facility] cheko compression fracture vertebral body T11, T12 [id number] carcinoma of the right breast Fe bruary, [...] catheter ablation by Dr Hector Thorne at [facility] 09/2023 Aorta Catherization 08/2022 endoscopy at [facility] 01/2020 battery replacement in pacemaker 02/2020 Mastectomy right breast 11/08/2014 kyphoplasty 10/2014 pacermaker insertion 10/2011 Hospitalization History Reason Date(Month/Year) Multiple
[2024-09-12] MEDS: Lidocaine 4 % Patch ADH..PATCH 1 PATCH TRANSDERMA (09:20)
[2024-09-12] MEDS: Ondansetron ODT 4 MG TAB.RAPDIS TRANSLINGU (09:20)
[2024-09-12] MEDS: Morphine Sulfate Immed Release 15 MG TABLET 7.5 MG PO (09:31)
[2024-09-12 10:07] VITALS: BP 133/50; PULSE 65; RESP 16; TEMP 36.7; O2SAT 96
[2024-09-12 11:52] VITALS: BP 133/50; PULSE 65; RESP 16; TEMP 36.7; O2SAT 96
== END 2024-09-12 11:53 | disposition home or self-care (01) ==
PROVIDERS: Emergency Provider Emergency Medicine; PCP Internal Medicine Medical Oncology
DX: M48.56XA Collapsed vertebra, not elsewhere classified, lumbar region, initial encounter for fracture (principal); M54.50 Low back pain, unspecified; I48.91 Unspecified atrial fibrillation; R10.2 Pelvic and perineal pain; M35.00 Sjogren syndrome, unspecified; Z79.01 Long term (current) use of anticoagulants; Z79.899 Other long term (current) drug therapy; Z87.891 Personal history of nicotine dependence
CPT/HCPCS: 72100; 72131; 72192; 72202; 99284

== ENCOUNTER → 2024-09-12 08:07 | Outpatient (BNV) | payer MEDICARE, SELFPAY ==
[2023-01-14 15:19] VITALS: BP 130/62; BP 134/66; BP 138/70; BMI 33.3
== END ==
PROVIDERS: Emergency Provider Emergency Medicine; PCP Internal Medicine Medical Oncology; Visit Provider Radiology Vascular & Interventional Radiology
DX: R10.2 Pelvic and perineal pain (principal); S32.030A Wedge compression fracture of third lumbar vertebra, initial encounter for closed fracture; M54.50 Low back pain, unspecified
CPT/HCPCS: 72100; 72131; 72192; 72202

== ENCOUNTER 2024-10-05 11:03 | Outpatient (AMB) | payer MEDICARE, SELFPAY ==
[2023-01-14 15:19] VITALS: BP 130/62; BP 134/66; BP 138/70; BMI 33.3
--- NOTE | 2024-10-05 11:34 | MHC.OFFVIS ---
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: No Allergies amoxicillin [AMOXICILLIN] Allergy (Severe, Verified 10/05/24 11:37) hives, anaphylaxis, hives Penicillins [PENICILLINS] Allergy (Mild, Verified 10/05/24 11:37) hives, itching Sulfa (Sulfonamide Antibiotics) [SULFA (SULFONAMIDE ANTIBIOTICS)] Allergy (Mild, Verified 10/05/24 11:37) HIVES, itching Medication List - Last Reconciled 10/05/24 by Gaye Park LPN alendronate 70 mg PO MOREIRA apixaban (Eliquis) 5 mg PO BID aspirin 81 mg PO DAILY calcium carbonate 600 mg PO BID cholecalciferol (vitamin D3) 25 mcg PO DAILY ferrous sulfate 325 mg PO DAILY fluorometholone 0.1% 1 drp ophthalmic (eye) BEDTIME levothyroxine 100 mcg PO DAILY metoprolol tartrate 25 mg PO BID pantoprazole 40 mg PO BEDTIME peg 400-propylene glycol (PF) 0.4-0.3 % (Systane (PF)) 1 drp ophthalmic (eye) 5XD PRN simvastatin 40 mg PO BEDTIME trazodone 150 mg PO BEDTIME HPI HPI Compression Fracture of L2 Vertebra/Right Leg Pain: Details: History of Present Illness The patient is a 79-year-old female presenting with chronic low back pain and right buttock and thigh pain. This pain began following a kyphoplasty performed on July 20, 2024, indicating a post-procedure onset. Described as an 8/10 aching pain, it worsens throughout the day but improves at night. The patient does not associate the pain's onset with the immediate post-fibroplasty period but rather a few days later. Radiographic imaging following the procedure identified a vertebral endplate depression mistakenly perceived as a fracture. The patient has managed osteoporosis through alendronate administration. Comorbid conditions, such as spondylolisthesis at L2-3 and degenerative disc disease, along with foraminal stenosis at L2-3 and L3-4, potentially contribute to the reported symptoms. This context is compounded by underlying risk factors like bone fragility, limiting surgical options such as spinal fusion. Review of current pain management protocols against osteoporosis risk reveals potential alternative interventions, including nerve stimulation, as opposed to standard cortisone injections. Pain Description - Onset: Post-kyphoplasty, several days later. - Quality: Aching. - Location: Right buttock and thigh. - Radiation: From back muscles to the right thigh and top of the thigh. - Intensity: 8/10. - Exacerbating Factors: Worse during daytime activities. - Relieving Factors: Partial relief with sleeping. - Interference: Interferes with daily activities and functions, primarily ambulatory during daytime. Physical Exam - Musculoskeletal- Noted right-sided thigh pain. Results - Imaging studies indicate an additional vertebral fracture possibly related to an endplate depression. Pain Management - Affect: The patient's mood and psychological well-being are not explicitly discussed. - Analgesia: Currently using alendronate 17 mg once weekly. Current pain intensity is 8/10 with no goal pain level discussed. - Adverse Effects: No adverse effects reported from current pain medication usage. - Activities of Daily Living: The pain interferes with ambulatory activities during the day. - Aberrant Drug Related Behaviors: No aberrant drug-related behaviors reported. [facility] Medical History Osteoarthritis Heart block AV second degree Psoriasis Gallstones Pancreatic cyst Insomnia Hx-TIA (transient ischemic attack) (2011) History of chemotherapy History of cardioversion (07/2023) History of cardiac pacemaker in situ (2011) History of transcatheter aortic valve replacement (TAVR) PAF (paroxysmal atrial fibrillation) History of breast cancer History of non-Hodgkin's lymphoma Anemia UTI (urinary tract infection) Sjogren's syndrome with keratoconjunctivitis sicca Surgical History Hx of splenectomy (1987) Hx of right mastectomy (2014) History of esophagogastroduodenoscopy (EGD) Hx of colonoscopy Hx of kyphoplasty History of cardiac catheterization S/P TAVR (transcatheter aortic valve replacement) Social History Household Members: Spouse Household Members Other:: daughter Housing: House Are you a primary laboratory animal caretaker to a significant other at home: No Do you presently have visiting nurse or other home services: No Alcohol intake: current Alcohol intake frequency: holidays/special occasions only Patient Tobacco Use Status: Former Tobacco user Tobacco use type: Cigarette Cigarette Packs Per Day: 0.25 Years Smoked: 1 e-Cigarette/Vaping Use: Never Used service: No Physical Exam Vital Signs: Last Vital Signs Pulse 92 10/05/24 11:36 Resp 16 10/05/24 11:36 BP 145/65 H 10/05/24 11:36 Pulse Ox 98 10/05/24 11:36 Oxygen Delivery Method Room Air 10/05/24 11:36 BMI result Body Mass Index 28.7 Assessment & Plan Assessment & Plan (1) Lumbar degenerative disc disease: Code(s): M51.369 - Other intervertebral disc degeneration, lumbar region without mention of lumbar back pain or lower extremity pain Category: Medical (2) Spondylolisthesis, lumbar region: Code(s): M43.16 - Spondylolisthesis, lumbar region Category: Medical (3) Osteoporosis: Code(s): M81.0 - Age-related osteoporosis without current pathological fracture Category: Medical Plan Plan - Explore alternatives to cortisone injections due to osteoporosis risk and await input from spine surgery as already scheduled. - Consider nerve stimulation therapy and educated the patient regarding the procedure. - Continue alendronate therapy and follow up on bone health. - Review pain-related impacts on daily living to adjust the management plan as necessary. Patient was informed and verbally consented to the use of an ambient scribe for clinic note documentation during this visit. Discussion Notes I discussed with the patient the nature of her spinal conditions, including the interplay between her osteoporosis, conservative management options given the limited utility of surgery, and alternative approaches such as nerve stimulation therapy. We reviewed the contraindications associated with cortisone injections due to the risk factors for osteoporosis exacerbation. I also addressed the outcome expectations post-nerve stimulation therapy, explaining the pros and cons, including the success rate and need for caregiver assistance if this therapy is pursued. The patient expressed understanding and agreed to consider these options after consulting with her spine surgeon. Furthermore, I provided anticipatory guidance regarding potential non-steroidal interventions. Patient Instructions - Continue taking alendronate as prescribed. - Coordinate with the spine surgeon and follow through with the upcoming clinical appointment. - Read the provided brochure about the nerve stimulation device. - Be aware of any changes or escalation in symptoms and contact our office if needed. Coding Level of Care Code New Pt Level 4 (98433) Diagnoses Lumbar degenerative disc disease M51.369 Spondylolisthesis, lumbar region M43.16 Osteoporosis M81.0
[2024-10-05 11:36] VITALS: BP 145/65; PULSE 92; RESP 16; O2SAT 98; BMI 28.7
--- OUTSIDE RECORDS SUMMARY | 2024-10-05 12:20 | XMS_ITS ---
Author Organization Demetrius Cote III, MD Address [address] [place] [address] Care Team Providers Care [employer] Name Role Phone Demetrius Cote Primary Care Provider Allergies Allergen (clinical drug ingredient) Drug/Non Drug Allergy documented on EMR Reaction Allergy Type Onset Date Status Penicillin Unknown Drug Allergy Active sulfamethoxazole / trimethoprim Sulfamethoxazole-Tri methoprim hives Drug Allergy Active amoxicillin Amoxicillin hives Drug Allergy Act anmol REASON FOR VISIT Severe lumbar back pain, History of to compression fracture L2 and T11,, Gastric cancer, Pancreaticmass, Obesity, Atrial fibrillation Medications Medication SIG (Take, Route, Frequency, Duration) Notes Start Date End Date Status D3-1000 25 MCG (1000 UT) 1 capsule Orall y Once a day Active Amiodarone HCl 200 MG TAKE 2 TABLETS BY MOUTH TWICE DAILY FOR 12 DAYS THEN TAKE 1 TABLET BY MOUTH DAILY Oral Active Furosemide 20 MG TAKE 1 TABLET BY JOSÉ TH EVERY OTHER DAY Oral Active dexAMETHasone 2 MG 1 tablet Orally twic e a day 09/04/2024 Active Cyclobenzaprine HCl 10 MG 1 tablet Orall y every 8 hours 09/04/2024 Active Aspirin 81 81 MG 1 tablet Orally Once a day Active Melatonin 1 MG 1 tablet at bedtime as needed Orally Once a day Active Eliquis 5 MG 1 tablet Orally Twic e a day Active Alendronate Sodium 70 MG TAKE 1 TABLET B Y MOUTH 1 TIME A WEEK 30 MINUTES BEFORE FIRST FOOD OR BEVERAGE OR MEDICINE OF THE DAY WITH WATER Active levoFLOXacin 500 MG 1 tablet Orally Once a day 09/10/2023 Active FeroSul 325 (65 Fe) MG TAKE 1 TABLET BY MOUTH EVERY DAY Active dexAMETHasone 2 MG 1 tablet Orally twic e a day 06/23/2024 Active Simvastatin 40 MG TAKE 1 TABLET EVERY EVENING Active Levothyroxine Sodium 100 MCG TAKE 1 TABLET DAILY Active traZODone HCl 150 MG TAKE 1 TABLET BY MO UTH EVERY NIGHT AT BEDTIME Active Metoprolol Tartrate 25 MG TAKE 1 TABLET 2 TIMES DAILYWITH FOOD Active Gabapentin 300 MG 1 capsule Orally [...] Additional Findings: Tobacco Non-User Ex-cigaret te smoker Encounters Encounter Location Date Provider Diagnosis Demetrius Cote III, MD [address] [place] [address] [place] [address] 09/29/2024 Demetrius Cote Former smoker Z87.89 1 ; Wedge compression fracture of T11 vertebra S22.080A ; Overweight (BMI 25.0-29.9) E66.3 ; Hodgkins disease C81.90 ; 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 ; Pancreatic mass K86.9 ; Hypothyroid E03.9 ; Atrial fibrillation I48.91 ; 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 ; Osteopenia after menopause M81.0 ; S/P TAVR (transcatheter aortic valve replacement) Z95.2 ; Chronic congestive heart failure, unspecified heart failure type I50.9 ; Atrial fibrillation, unspecified I48.91 ; Sicca syndrome, unspecified M35.00 ; 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 and Malignant neoplasm of unspecified site of right female breast C50.911 Assessments Encounter Date Diagnosis (ICD Code) Assessment Notes Treatment Notes Treatment Clinical Notes 09/29/2024 Former smoker (ICD-10 - Z87.891) She is highly motivated not to smoke. We have discussed strategies for maintenance of abstinence in times of stress and illness. 09/29/2024 Wedge compression fracture of T11 vertebra (ICD-10 - S22.080A) Her pain has become minimally but it can be reproduced with percussion. No change in her regimen is needed. 09/29/2024 Overweight (BMI 25.0-29.9) (ICD-10 - E66.3) Her body mass index is 26. We agreed to stabilize her weight at this level until the acute illness has resolved. The she will receive dietary counseling and we will try to reduce hher weight at a rate of one half of a pound per week. 09/29/2024 Hodgkins disease (ICD-10 - C81.90) There is no adenopathy. She continues in a durable remission. 09/29/2024 Invasive ductal carcinoma of right breast (ICD-10 - C50.911) The mastectomy site is free of any sign of relapse. The left breast is unremarkable. 09/29/2024 Pancreatic mass (ICD-10 - K86.9) The CA-19-9 [...] need to have surgery on the pancreas. 09/29/2024 Hypothyroid (ICD-10 - E03.9) Her TSH has been slightly elevated. If it remains this way on repeat her dose will be adjusted. 09/29/2024 Atrial fibrillation (ICD-10 - I48.91) She has been well controlled lately. She has been compliant with all of her medications. She was in a regular rhythm today 09/29/2024 Right knee DJD (ICD-10 - M17.9) The pain in her right knee is mild to moderate and unchanged. No change in her regimen was needed. 09/29/2024 Osteopenia after menopause (ICD-10 - M81.0) She will have periodic bone densities. I recommended Os-Samy 500 mg twice a day. The thousand units of vitamin D daily. She will be evaluated periodically for alendronate. 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 No murmurs heard. 09/29/2024 Chronic congestive heart failure, unspecified heart failure type (ICD-10 - I50.9) Her CHF is now well compensated and she is compliant with her medications. Cardiology follow-up has been arranged. 09/29/2024 Atrial fibrillation, unspecified (ICD-10 - I48.91) Her heart rate is well controlled today on no change in her regimen was made. 09/29/2024 Sicca syndrome, unspecified (ICD-10 - M35.00) The oral dryness remains unchanged. She has been compliant with frequent visits to her dentist. 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 She is going to arrange for resection with the surgeon next week. 09/29/2024 Malignant neoplasm of unspecified site of right female breast (ICD-10 - C50.911) Is no sign of recurrence or relapse her new primary today. Plan Of Treatment Medication Medication Name Sig Start Date Stop Date Notes D3-1000 25 MCG (1000 UT) 1 capsule Orall y Once a day Amiodarone HCl 200 MG TAKE 2 TABLETS BY MOUTH TWICE DAILY FOR 12 DAYS THEN TAKE 1 TABLET BY MOUTH DAILY Oral Furosemide 20 MG TAKE 1 TABLET BY JOSÉ TH EVERY OTHER DAY Oral dexAMETHasone 2 MG 1 tablet Orally twic e a day 09/04/2024 Cyclobenzaprine HCl 10 MG 1 tablet Orall y every 8 hours 09/04/2024 Aspirin 81 81 MG 1 tablet Orally Once a day Melatonin 1 MG 1 tablet at bedtime as needed Orally Once a day Eliquis 5 MG 1 tablet Orally Twic e a day Alendronate Sodium 70 MG TAKE 1 TABLET B Y MOUTH 1 TIME A WEEK 30 MINUTES BEFORE FIRST FOOD OR BEVERAGE OR MEDICINE OF THE DAY WITH WATER levoFLOXacin 500 MG 1 tablet Orally Once a day 09/10/2023 FeroSul 325 (65 Fe) MG TAKE 1 TABLET BY MOUTH EVERY DAY dexAMETHasone 2 MG 1 tablet Orally twic e a day 06/23/2024 Simvastatin 40 MG TAKE 1 TABLET EVERY EVENING Levothyroxine Sodium 100 MCG TAKE 1 TABLET DAILY traZODone HCl 150 MG TAKE 1 TABLET BY MO UTH EVERY NIGHT AT BEDTIME Metoprolol Tartrate 25 MG TAKE 1 TABLET 2 TIMES DAILYWITH FOOD Gabapentin 300 MG 1 capsule Orally thr ee times a day 06/23/2024 Calcium Carbonate 1500 (600 Ca) MG 1 tablet with food Orally Twice a day traMADol HCl 50 MG 1 tablet Orally thre e times a day 09/04/2024 Next Appt Details Follow Up: 1 Week, Reason: T [facility] Provider Name:Demetrius Browningrne, 10/09/2024 03:30:00 PM, [address] [place] [address] [address], [place], [phone], Provider Name:Demetrius Kera, 11/26/2024 09:30:00 AM, [address] [place] [address] [address], [place], [phone], Progress Notes * Kayla CHEUNGDOB:[birth year] (79 yo F)Acc No.[id number]:09/29/2024 Patient:?Kayla CHEUNG Provider:?Demetrius Cote MD :1945???Age:79 Y???Sex:Female D ate:09/29/2024 Address:[address] [place] [id number] Subjective: * Chief Complaints: * ???Severe lumbar back painHi story of to compression fracture L2 and T11,Gastric cancerPancreatic massObesityAtrial fibrillation * HPI: ???:? She returns for medical management of several wishes.? He recently underwent an upper endoscopy and endoscopic biopsy of a pancreatic mass.? Benign tissue.? Biopsy of an abnormal appearing area gastric antrum adenocarcinoma she has been referred to surgical oncology at [facility], Dr. Wright, who is going to do a staging endoscopy next week with biopsies.? This will determine the extent of disease and dictate therapy.? Patient's main complaint is severe worsening low back pain.? She has a history of 2 vertebral compression fractures treated with vertebroplasty.? Review of the x-rays show the there is an absent disc between L3 and L4.? She has been referred to the spine Center and neurosurgery for their opinion as to whether the pain can be improved.She also has a history of Hodgkin's disease and breast cancer in remission.? 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 ?Telehealth?Location of provider rendering services:?{...} [address] [facility] [address] ?Location of patient:?address listed in demographics for today's visit ?Patient identification confirmed using:?Name, ?Telehealth method:?Telephone only. Patient not visible to care provider. ?Consent:?Patient verbally consented to treatment, Patient verbally consented to billing insurance company, Patient informed of any privacy concerns related to method of visit ?Total time spent with patient (mins)?15 * ROS:?General/Constitutional:?pain?Lumbar spine 9 out of 10.?Chills?denies.?Fatigue?admits.?Fever?denies.?ENT:?Decreased hearing?denies.?Respiratory:?Cough?denies.?Cardiovascular:?Chest pain with exertion?denies.?Dyspnea on exertion?denies.?Shortness of breath?denies.?Gastrointestinal:?Constipation?occasional.?Decreased appetite?denies.?Diarrhea?denies.?Heartburn?occasional.?Nausea?denies.?Rectal bleeding?denies.?Vomiting?denies.?Hematology:?bruising?denies.?petechiae?denies.?Swollen glands?none have been noted.?Genitourinary:?Frequent urination?denies.?Musculoskeletal:?Muscle aches?denies.?Painful joints?denies.?Sciatica?denies.?Weakness?denies.?Skin:?Itching?denies.?Rash?denies.?Skin lesion(s)?denies.?Neurologic:?Difficulty speaking?denies.?Dizziness?denies.?Headache?denies.?Low back pain?denies.?Psychiatric:?Depressed mood?denies, which is mild.? * Medical History:? * Surgical History:?pacermaker insertion 10/2011kyphoplasty 10/2014Mastectomy right breast 11/08/2014battery replacement in pacemaker 02/2020[facility]oscopy at [facility] 01/2020Aorta Catherization 3catheter ablation by Dr Hector Thorne at [facility] 09/2023No history * Hospitalization/Major Diagno stic Procedure:?Multiple [...] for many years. She was born in [place], [place]. The patient lives with her daughter. She has been living in the same house for 45 years. She has a dog that is aging and having trouble. * Medications:?TakingMetoprolo l Tartrate 25 MG Tablet TAKE 1 TABLET 2 TIMES DAILYWITH FOOD Calcium Carbonate 1500 (600 Ca) MG Tablet [...] TABLET BY MOUTH EVERY NIGHT AT BEDTIME Alendronate Sodium 70 MG Tablet TAKE 1 [...] Tablet 1 tablet Orally Twice a day D3- 1000 25 MCG (1000 UT) Capsule 1 capsule Orally Once a day Furosemide 20 MG Tablet TAKE 1 TABLET BY MOUTH EVERY OTHER DAY Oral Amiodarone HCl 200 MG Tablet TAKE 2 TABLETS BY MOUTH TWICE DAILY FOR 12 DAYS THEN TAKE 1 TABLET BY MOUTH DAILY Oral Cyclobenzaprine HCl 10 MG Tablet 1 tablet Orally every 8 hours dexAMETHasone 2 MG Tablet 1 tablet Orally twice a day traMADol HCl 50 MG Tablet 1 tablet Orally three times a day Medication List reviewed and reconciled with the patientTaking Metoprolol Tartrate 25 MG Tablet TAKE 1 TABLET 2 TIMES DAILYWITH FOOD Taking Calcium Carbonate 1500 (600 Ca) MG Tablet [...] BY MOUTH EVERY NIGHT AT BEDTIME Taking Alendronate Sodium 70 MG Tablet TAKE [...] 1 TABLET BY MOUTH DAILY Oral Taking Cyclobenzaprine HCl 10 MG Tablet 1 tablet Orally every 8 hours Taking dexAMETHasone 2 MG Tablet 1 tablet Orally twice a day Taking traMADol HCl 50 MG Tablet 1 tablet Orally three times a day Medication List reviewed and reconciled with the patient * Allergies:?Amoxicillin: hive sSulfamethoxazole-Trimethoprim: hivesPenicillinno[Allergies Verified] Objective: * Vitals:? Assessment: * Assessment: 1.?Wedge compression fractur e of T11 vertebra - S22.080A (Primary)???Notes :Her pain has become minimally but it can be reproduced with percussion. No change in her regimen is needed.???2.?Former smoker - Z87.891???Notes :She is highly motivated not to smoke. We have discussed strategies for maintenance of abstinence in times of stress and illness.???3.?Overweight (BMI 25.0-29.9) - E66.3???Notes :Her body mass index is 26. We agreed to stabilize her weight at this level until the acute illness has resolved. The she will receive dietary counseling and we will try to reduce hher weight at a rate of one half of a pound per week.???4.?Hodgkins disease - C81.90???Notes :There is no adenopathy. She continues in a durable remission.???5.?Invasive ductal carcinoma of right breast - C50.911???Notes :The mastectomy site is free of any sign of relapse. The left breast is unremarkable.???6.?Pancreatic mass - K86.9???Notes :The CA-19-9 is fluctuating [...] may need to have surgery on the pancreas.???7.?Hypothyroid - E03.9???Notes :Her TSH has been slightly elevated. If it remains this way on repeat her dose will be adjusted.???8.?Atrial fibrillation - I48.91???Notes :She has been well controlled lately. She has been compliant with all of her medications. She was in a regular rhythm today???9.?Right knee DJD - M17.9???Notes :The pain in her right knee is mild to moderate and unchanged. No change in her regimen was needed.???10.?Osteopenia after menopause - M81.0???Notes :She will have periodic bone densities. I recommended Os-Samy 500 mg twice a day. The thousand units of vitamin D daily. She will be evaluated periodically for alendronate.???11.?S/P TAVR (transcatheter aortic valve replacement) - Z95.2???Notes :Her valve continues to work appropriately. No murmurs heard.???12.?Chronic congestive heart failure, unspecified heart failure type - I50.9???Notes :Her CHF is now well compensated and she is compliant with her medications. Cardiology follow-up has been arranged.???13.?Atrial fibrillation, unspecified - I48.91???Notes :Her heart rate is well controlled today on no change in her regimen was made.???14.?Sicca syndrome, unspecified - M35.00???Notes :The oral dryness remains unchanged. She has been compliant with frequent visits to her dentist.???15.?Early gastric cancer - C16.9???Notes :This was an incidental finding on upper endoscopy done and a biopsy a cystic pancreatic mass. She is going to arrange for resection with the surgeon next week.???16.?Malignant neoplasm of unspecified site of right female breast - C50.911???Notes :Is no sign of recurrence or relapse her new primary today.??? Plan: * Treatment: * Procedure Codes:?18538 SYNCH AUDIO-ONLY EST SF 10 * Preventive Medicine:? ??Counseling:?Care goal follow-up plan:?Counseling for abnormal BMI given?Yes ?Above Normal BMI Follow-up?Dietary management education, guidance, and counseling ?Smoking/Tobacco Use?Patient counseled on the dangers of tobacco use and urged to quit.?09/29/2024 * Follow Up:?1 Week (Reason: T [facility]) * Images: * Sign off status: Completed true * Provider:?Demetrius Cote MD Date:?09/04 Generated for Yoan moise/Kris/Chrisitting on:?10/05/2024 12:20 PM EDT History and Physical Notes * HPI (History of Present Illness) Category Sub-Category Detail Notes Telehealth Location of [facility] rendering services:: {...} [address] [place] [address] [place] [id number] Location of patient:: address listed in demographics for today's visit Patient identification confirmed using:: Name, Telehealth method:: Telephone only. Cinthia ent not visible to care provider. Consent:: Patient verbally c onsented to treatment, Patient verbally consented to billing insurance company, Patient informed of any privacy concerns related to method of visit Total time spent with patient (mins): 15
== END 2024-10-05 11:55 | disposition home or self-care (01) ==
LOC: HO.PMC 11:05
PROVIDERS: PCP Internal Medicine Medical Oncology; Referring Provider Internal Medicine Medical Oncology; Visit Provider Internal Medicine
DX: M51.369 Other intervertebral disc degeneration, lumbar region without mention of lumbar back pain or lower extremity pain (principal); M43.16 Spondylolisthesis, lumbar region; M81.0 Age-related osteoporosis without current pathological fracture
CPT/HCPCS: 99204

== ENCOUNTER → 2024-10-05 11:03 | Outpatient (BNVA) | payer MEDICARE, SELFPAY ==
[2023-01-14 15:19] VITALS: BP 130/62; BP 134/66; BP 138/70; BMI 33.3
== END ==
PROVIDERS: PCP Internal Medicine Medical Oncology; Referring Provider Internal Medicine Medical Oncology; Visit Provider Internal Medicine
DX: M51.369 Other intervertebral disc degeneration, lumbar region without mention of lumbar back pain or lower extremity pain (principal); M43.16 Spondylolisthesis, lumbar region; M81.0 Age-related osteoporosis without current pathological fracture
CPT/HCPCS: 99202

== ENCOUNTER 2024-10-23 08:50 | Outpatient (AMB) | payer MEDICARE, SELFPAY ==
[2023-01-14 15:19] VITALS: BP 130/62; BP 134/66; BP 138/70; BMI 33.3
--- OUTSIDE RECORDS SUMMARY | 2024-10-01 06:29 | XMS_ITS ---
Author Organization Demetrius Cote III, MD Address [address] [place] [address] [place] [address] Care Team Providers Care Tourist Adviser Name Role Phone Demetrius Cote Primary Care Provider REASON FOR VISIT message after surgery Social History Sex Assigned At : Social History Observation Description Sex Assigned At Female Encounters Encounter Location Date Provider Diagnosis Demetrius Cote III, MD [address] [place] [address] [place] [address] 10/01/2024 Demetrius Cote Plan Of Treatment Next Appt Details Provider Name:Demetrius Cote, 11/26/2024 09:30:00 AM, [address] [place] [address] [place], [address], Progress Notes * Kayla CHEUNGDOB:[birth year] (79 yo F)Acc No.[id number]:10/01/2024 Patient: Kenan Kayla AYALA :1945 A ge:79 Y S ex:Female Address:[address] [place], [place] [address] [address] * true * Date: Generated for Garretti suma/Kris/eTransmitting on: 0 10/23/2024 08:56 AM EDT
--- NOTE | 2024-10-23 09:07 | HO.SPINEOV ---
Intake Visit Reasons: endplate compression fracture L3 Intake Note: Mrs. Cheung is here today due to a compression fx. CT Scan done @ [facility] [place] Distance Education Teacher Required: No Allergies amoxicillin (AMOXICILLIN) Allergy (Severe, Verified 10/05/24 11:37) hives, anaphylaxis, hives Penicillins (PENICILLINS) Allergy (Mild, Verified 10/05/24 11:37) hives, itching Sulfa (Sulfonamide Antibiotics) (SULFA (SULFONAMIDE ANTIBIOTICS)) Allergy (Mild, Verified 10/05/24 11:37) HIVES, itching Assessment & Plan Assessment & Plan (1) History of compression fracture of spine: Comment: Thought to be due to radiation therapy Code(s): Z87.81 - Personal history of (healed) traumatic fracture Category: Medical Plan Dear colleague Thank you for referring Kayla Cheung to the office today with a chief complaint of right thigh pain. HPI: This 79-year-old female known with osteoporosis developed an L2 compression fracture approximately 3 months ago. She underwent kyphoplasty and afterwards she was complaining for pain radiating from her back down to the front of the thigh. The pain comes with walking and standing. Sitting alleviates his symptoms. Pain prevents her from lifting heavy objects. She is managing the pain without pain killers. The following conservative treatment options were tried without success antiinflammatories, tylenol, physician guided home exercise plan, cortisone shots PMH: Hypothyroidism, Splenectomy, Sjogren's disease, psoriasis, non-Hodgkin lymphoma, pacemaker placement with replacement pacemaker in 2019. Medications: Ferrous sulfate, levothyroxine, Eliquis, alendronate, trazodone, pantoprazole, metoprolol, simvastatin Allergies: Amoxicillin, penicillin, sulfa drugs Social history: Physical Exam: Pleasant female. Not in obvious agony. She is able to ambulate without assistance. Neurological exam. No motor or sensory deficits. No pathological reflexes. Radiological Studies: CT scan of the lumbar spine at [facility] on 09/12/2024 shows status post kyphoplasty T11, T12 and L2 with severe foraminal stenosis for the right L2 nerve root due to a unilateral collapse of the L2-3 disc space and a spondylolisthesis at this level. An x-ray confirms the CT findings Impression/Plan: This patient is suffering from lumbar radiculopathy following an L2 compression fracture. Unfortunately, decompressive surgery will not be beneficial in this patient. He will lead to more instability and a recollapse of the foramen. I advised the pain management to see if she is a candidate for a stimulator. Thank you for allowing me to participate in your patients care. total time spent was 50 minutes in counseling ,coordination of plan, personal review of imaging, surgical decision making and subsequent plan Samir Ryan MD, PhD Spine Fellowship Trained Neurosurgeon Director, [facility] Orders: Orders XR lumbar spine 1V Today Z87.81 - Personal history of (healed) traumatic fracture Coding Level of Care Code New Pt Level 4 (62434) Diagnoses History of compression fracture of spine Z87.81
== END 2024-10-23 10:22 | disposition home or self-care (01) ==
LOC: HO.HNS 08:50
PROVIDERS: PCP Internal Medicine Medical Oncology; Referring Provider Internal Medicine Medical Oncology; Visit Provider Neurological Surgery
DX: Z87.81 Personal history of (healed) traumatic fracture (principal)
CPT/HCPCS: 99204

== ENCOUNTER 2024-10-23 08:50 | Outpatient (REF) | payer MEDICARE, SELFPAY ==
[2023-01-14 15:19] VITALS: BP 130/62; BP 134/66; BP 138/70; BMI 33.3
--- NOTE | ~2024-10-23 | XR_ITS ---
EXAMINATION: XR LUMBOSACRAL SPINE CLINICAL INFORMATION: Z87.81 - Personal history of (healed) traumatic fracture COMPARISON: September 12, 2024 TECHNIQUE: AP and lateral views FINDINGS: Radiopaque material within the vertebral bodies of L2, T11 and T12 with similar old compression deformity volume loss. Grade 1 retrolisthesis L2-3. Levoconvex curvature of the lumbar spine apex at L2-3. Osteopenia versus osteoporosis. Electrode leads in the right heart chambers from a pacemaker no fully included in the [id number]. There is stent in the ascending thoracic aorta no fully included in the [id number]. There is residual oral contrast within the large intestine from prior imaging exam. Vascular calcifications, aorta. XR/XR lumbar spine 1V IMPRESSION: Grade 1 retrolisthesis L2-3 and levoconvex scoliosis, lumbar spine. Status post kyphoplasty/vertebroplasty procedure, T11, T12 and L2. Electronically signed by: Jean Kovacs MD 10/23/2024 09:48 AM EDT
== END 2024-10-23 08:51 | disposition home or self-care (01) ==
LOC: HO.HOSX 08:50
PROVIDERS: PCP Internal Medicine Medical Oncology; Referring Provider Internal Medicine Medical Oncology; Visit Provider Neurological Surgery
DX: Z87.81 Personal history of (healed) traumatic fracture (principal)
CPT/HCPCS: 72020; 99202

== ENCOUNTER → 2024-10-23 09:20 | Outpatient (BNV) | payer MEDICARE, SELFPAY ==
[2023-01-14 15:19] VITALS: BP 130/62; BP 134/66; BP 138/70; BMI 33.3
== END ==
PROVIDERS: PCP Internal Medicine Medical Oncology; Referring Provider Internal Medicine Medical Oncology; Visit Provider Radiology Diagnostic Radiology
DX: M43.16 Spondylolisthesis, lumbar region (principal)
CPT/HCPCS: 72020

== ENCOUNTER 2024-11-26 10:09 | Outpatient (REF) | payer MEDICARE, SELFPAY ==
[2023-01-14 15:19] VITALS: BP 130/62; BP 134/66; BP 138/70; BMI 33.3
--- OUTSIDE RECORDS SUMMARY | 2024-10-19 06:36 | XMS_ITS ---
Author Organization Demetrius Cote III, MD Address [address] [place] [address] [place] [address] Care Team Providers Care Flap Lining Binder Name Role Phone Demetrius Cote Primary Care Provider [phone] REASON FOR VISIT Needs call back from Social History Sex Assigned At : Social History Observation Description Sex Assigned At Female Encounters Encounter Location Date Provider Diagnosis Demetrius Cote III, MD [address] [place] [address] [place] [address] 10/19/2024 Demetrius Cote Plan Of Treatment Next Appt Details Provider Name:Demetrius Cote, 01/07/2025 09:45:00 AM, [address] [place] [address] [place], [address], Provider Name:Demetrius Cote, 11/30/2025 09:30:00 AM, [address] [place] [address] [place], [address], Progress Notes * Kayla CHEUNGDOB:[birth year] (79 yo F)Acc No.[id number]:10/19/2024 Patient: Kenan CASHSHIVLigiaKayla :1945 A ge:79 Y S ex:Female Address:[address] [place] [address] [facility] [address] * true * Date: Generated for Printi ng/Faxing/eTransmitting on: 0 11/26/2024 10:55 AM EDT
--- NOTE | ~2024-11-26 | MM_ITS ---
EXAMINATION: DXA BONE DENSITY AXIAL HISTORY: M81.0 AGE RELATED OSTEOPOROSIS TECHNIQUE: InVenture Dual energy absorptiometry (DEXA) of the lumbar spine, total left hip, and femoral neck was performed. COMPARISON: Comparison is made with the prior examination dated 10/08/2017. FINDINGS: The bone mineral density of the lumbar spine is 0.930 g/cm2, corresponding to a T-score of -2.0, and a Z-score of -0.2. This is indicative of osteopenia. This represents a BMD change of -4.0% compared to the prior exam. This is not statistically significant. The bone mineral density of the left total hip is 0.789 g/cm2, corresponding to a T-score of -1.7, and a Z-score of 0.1. This is indicative of osteopenia. This represents a BMD change of -0.4% compared to the prior exam. This is not statistically significant. The bone mineral density of the left femoral neck is 0.695 g/cm2, corresponding to a T-score of -2.5, and a Z-score of -0.4. This is indicative of osteoporosis. This represents a BMD change of -2.4% compared to the prior exam. MM/XR DEXA axial skeleton IMPRESSION: Based on bone mineral density, and according to World Health Organization (WHO) criteria, the diagnosis is consistent with osteoporosis. Statistically, 68% of repeat scans fall within 1 SD (+/- 0.010 g/cm2 for AP spine L1-L4) and 1 SD (+/- 0.012 g/cm2 for femur total) FRAX is a trademark of the [employer]'s [employer] Metabolic [employer] Disease, a World Health Organization (WHO) Collaborating Center. Electronically signed by: Demetrius Hager MD 11/26/2024 10:48 AM EDT
--- OUTSIDE RECORDS SUMMARY | 2024-11-26 10:55 | XMS_ITS | Clinical Summary ---
Author Organization 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
== END 2024-11-26 10:10 | disposition home or self-care (01) ==
LOC: HO.MAMMO 10:09
PROVIDERS: PCP Internal Medicine Medical Oncology; Visit Provider Internal Medicine Medical Oncology
DX: M81.0 Age-related osteoporosis without current pathological fracture (principal)
CPT/HCPCS: 77080

== ENCOUNTER → 2024-11-26 10:30 | Outpatient (BNV) | payer MEDICARE, SELFPAY ==
[2023-01-14 15:19] VITALS: BP 130/62; BP 134/66; BP 138/70; BMI 33.3
== END ==
PROVIDERS: PCP Internal Medicine Medical Oncology; Visit Provider Radiology Diagnostic Radiology
DX: E28.39 Other primary ovarian failure (principal)
CPT/HCPCS: 77080

== ENCOUNTER 2025-02-10 10:05 | Outpatient (REF) | payer MEDICARE, SELFPAY ==
--- NOTE | ~2025-02-10 | XR_ITS ---
EXAMINATION: XR CERVICAL SPINE CLINICAL INFORMATION: PAIN COMPARISON: None available. TECHNIQUE: 3 views of the cervical spine were obtained. FINDINGS: C2-3 through C4-5 demonstrates mild disc space narrowing. C4-5 demonstrates facet joint space narrowing and sclerosis. C5-6 demonstrated moderate loss of disc height with anterior osteophytes. C6-7: There is facet joint space narrowing and sclerosis. XR/XR cervical spine 3V IMPRESSION: Degenerative changes are most advanced at C5-6. Electronically signed by: Jersey Benavides MD 02/10/2025 10:42 AM EDT
--- NOTE | ~2025-02-10 | XR_ITS ---
EXAMINATION: XR THORACIC SPINE CLINICAL INFORMATION: COMPRESSION FX COMPARISON: None available. TECHNIQUE: 2 views of the thoracic spine were obtained. FINDINGS: Defibrillating pacemaker is noted with lead in right atrium and right ventricle and within the coronary sinus. There is a stent within the heart. There is possible mild concavity of the upper T6 vertebral body. Methacrylate is noted within T11, T12, and L2. The upper thoracic spine is obscured by overlapping bony and soft tissues. XR/XR thoracic spine 3V IMPRESSION: Due to overlapping bony structures and osteopenia, upper thoracic spine is not well-demonstrated. There is possible mild superior endplate compression fracture of T6, however the vertebral body is not well seen. Kyphoplasty at T11, T12, and L2. Electronically signed by: Jersey Benavides MD 02/10/2025 10:46 AM EDT
[2025-02-10 08:41] VITALS: BP 130/62; BP 134/66; BP 138/70; BMI 33.3
== END 2025-02-10 10:06 | disposition home or self-care (01) ==
LOC: HO.XRAY 10:05
PROVIDERS: PCP Internal Medicine Medical Oncology; Visit Provider Internal Medicine Medical Oncology
DX: M54.2 Cervicalgia (principal); G89.29 Other chronic pain; S32.020D Wedge compression fracture of second lumbar vertebra, subsequent encounter for fracture with routine healing; Z85.72 Personal history of non-Hodgkin lymphomas
CPT/HCPCS: 72040; 72072

== ENCOUNTER → 2025-02-10 10:19 | Outpatient (BNV) | payer MEDICARE, SELFPAY ==
[2025-02-10 08:41] VITALS: BP 130/62; BP 134/66; BP 138/70; BMI 33.3
== END ==
PROVIDERS: PCP Internal Medicine Medical Oncology; Visit Provider Radiology Diagnostic Radiology
DX: M50.322 Other cervical disc degeneration at C5-C6 level (principal); M85.80 Other specified disorders of bone density and structure, unspecified site
CPT/HCPCS: 72040; 72072

== ENCOUNTER 2025-02-26 14:21 | Outpatient (AMB) | payer MEDICARE, SELFPAY ==
[2023-01-14 15:19] VITALS: BP 130/62; BP 134/66; BP 138/70; BMI 33.3
--- OUTSIDE RECORDS SUMMARY | 2024-10-19 06:36 | XMS_ITS ---
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 Demetrius Cote III Primary Care Provider [phone] REASON FOR VISIT Needs call back from Social History Sex Assigned At : Social History Observation Description Sex Assigned At Female Encounters Encounter Location Date Provider Diagnosis Demetrius Cote III, MD [address] [place] [address] [place] [address] 10/19/2024 Demetrius Cote Plan Of Treatment Next Appt Details Provider Name:Demetrius Cote , 03/11/2025 10:45:00 AM, [address] [place] [address] [place], [address], Provider Name:Demetrius Cote , 11/30/2025 09:30:00 AM, [address] [place] [address] [place], [address], Progress Notes * Kayla CHEUNGDOB:[birth year] (79 yo F)Acc No.[id number]:10/19/2024 Patient: Kayla TORRES :1945 A ge:79 Y S ex:Female Address:[address] [place] [id number] * true * Date: Generated for Printi ng/Faxing/eTransmitting on: 04:16 PM EDT
--- OUTSIDE RECORDS SUMMARY | 2024-10-29 06:08 | XMS_ITS ---
Author Organization Demetrius Cote III, MD Address [address] [place] [address] Care Team Providers Care Unified Communications Engineer Name Role Phone Dr. Demetrius Cote III Primary Care Provider REASON FOR VISIT told patient to call Social History Sex Assigned At : Social History Observation Description Sex Assigned At Female Encounters Encounter Location Date Provider Diagnosis Demetrius Cote III, MD [address] [place] [address] [place] [address] 10/29/2024 Demetrius Cote Plan Of Treatment Next Appt Details Provider Name:Demetrius Cote , 03/11/2025 10:45:00 AM, [address] [place] [address] [place], [address], Provider Name:Demetrius Cote , 11/30/2025 09:30:00 AM, [address] [place] [address] [place], [address], Progress Notes * Kayla CHEUNGDOB:[birth year] (79 yo F)Acc No.[id number]:10/29/2024 Patient: Kayla TORRES :1945 A ge:79 Y S ex:Female Address:[address] [place] [phone] * true * Date: Generated for Printi ng/Faxing/eTransmitting on: 04:16 PM EDT
--- OUTSIDE RECORDS SUMMARY | 2024-11-26 05:30 | XMS_ITS ---
Author Organization Demetrius Cote III, MD Address [address] [place] [address] Care Team Providers Care Storage Facility Housekeeper Name Role Phone Dr. Demetrius Cote III Primary Care Provider [phone] Allergies Allergen (clinical drug ingredient) Drug/Non Drug Allergy documented on EMR Reaction Allergy Type Onset Date Status Penicillin Unknown Drug Allergy Active tramadol traMADol Unknown Drug Allergy Active No Known Food Allergy Unknown Drug Allergy Active sulfamethoxazole / trimethoprim Sulfamethoxazole-Tri methoprim hives Drug Allergy Active amoxicillin Amoxicillin hives Drug Allergy Act anmol REASON FOR VISIT Annual exam Medications Medication SIG (Take, Route, Frequency, Duration) Notes Start Date End Date Status Simvastatin 40 MG TAKE 1 TABLET EVERY EVENING Active Alendronate Sodium 70 MG TAKE 1 TABLET B Y MOUTH 1 TIME A WEEK 30 MINUTES BEFORE FIRST FOOD OR BEVERAGE OR MEDICINE OF THE DAY WITH WATER Active levoFLOXacin 500 MG 1 tablet Orally Once a day 09/10/2023 Active Melatonin 1 MG 1 tablet at bedtime as needed Orally Once a day Active Aspirin 81 81 MG 1 tablet Orally Once a day Active Gabapentin 300 MG 1 capsule Orally thr ee times a day 06/23/2024 Active dexAMETHasone 2 MG 1 tablet Orally twic e a day 06/23/2024 Active Calcium Carbonate 1500 (600 Ca) MG 1 tablet with food Orally Twice a day Active FeroSul 325 (65 Fe) MG TAKE 1 TABLET BY MOUTH EVERY DAY Active Levothyroxine Sodium 100 MCG TAKE 1 TABLET DAILY Active Amiodarone HCl 200 MG TAKE 2 TABLETS BY MOUTH TWICE DAILY FOR 12 DAYS THEN TAKE 1 TABLET BY MOUTH DAILY Oral Active Metoprolol Tartrate 25 MG TAKE 1 TABLET 2 TIMES DAILYWITH FOOD Active traZODone HCl 150 MG TAKE 1 TABLET BY MO UTH EVERY NIGHT AT BEDTIME Active Furosemide 20 MG TAKE 1 TABLET BY JOSÉ TH EVERY OTHER DAY Oral Active Eliquis 5 MG 1 tablet Orally Twic e a day Active D3-1000 25 MCG (1000 UT) 1 capsule Orall y Once a day Active Social History Tobacco Use: Social History Observation Description Date Details (start date - stop date) Former Smoker NA - NA Sex Assigned At : Social History Observation Description Sex Assigned At Female Tobacco Control (Standard) Question Answer Notes Tobacco use: Former smoker How long has it been since you last smoked? Grea ter than 10 years Additional Findings: Tobacco non-user Ex-cigaret te smoker AUDIT-C (Standard) Question Answer Notes Did you have a drink containing alcohol in the p ast year? 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 ; Sjoegren syndrome M35.00 ; 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 ; Atrial fibrillation I48.91 ; Hypothyroid E03.9 ; Pancreatic mass K86.9 ; Osteopenia after menopause M81.0 ; Nonrheumatic aortic valve stenosis I35.0 ; Anticoagulated Z79.01 ; Chronic congestive heart failure, unspecified heart failure type I50.9 ; Sicca syndrome, unspecified M35.00 ; Compression fracture of L2 vertebra, initial encounter S32.020A and Overweight (BMI 25.0-29.9) E66.3 Assessments Encounter Date Diagnosis (ICD Code) Assessment Notes T reatment Notes Treatment Clinical Notes 11/26/2024 Early gastric cancer (ICD-10 - C16.9) This was an incidental finding on upper endoscopy done and a biopsy a cystic pancreatic mass. She is going to arrange for resection with the surgeon next week.Currently undergoing staging. 11/26/2024 Invasive ductal carcinoma of right breast (ICD-10 - C50.911) The mastectomy site is free of any sign of relapse. The left breast is unremarkable. 11/26/2024 Former smoker (ICD-10 - Z87.891) She is highly motivated not to smoke. We have discussed strategies for maintenance of abstinence in times of stress and illness. 11/26/2024 Wedge compression fracture of T11 vertebra (ICD-10 - S22.080A) Her pain has become minimally but it can be reproduced with percussion. No change in her regimen is needed. 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 She continues in a durable remission 11/26/2024 Sjoegren syndrome (ICD-10 - M35.00) This problem is well controlled with oral medication. 11/26/2024 Right knee DJD (ICD-10 - M17.9) The pain in her right knee is mild to moderate and unchanged. No change in her regimen was needed. 11/26/2024 Atrial fibrillation (ICD-10 - I48.91) She has been well controlled lately. She has been compliant with all of her medications. She was in a regular rhythm today 11/26/2024 Hypothyroid (ICD-10 - E03.9) Her TSH has been slightly elevated. If it remains this way on repeat her dose will be adjusted. 11/26/2024 Pancreatic mass (ICD-10 - K86.9) The CA-19-9 [...] need to have surgery on the pancreas. 11/26/2024 Osteopenia after menopause (ICD-10 - M81.0) She will have periodic bone densities. I recommended Os-Samy 500 mg twice a day. The thousand units of vitamin D daily. She will be evaluated periodically for alendronate. 11/26/2024 Nonrheumatic aortic valve stenosis (ICD-10 - I35.0) Her exercise tolerance is improved and she has no long-term side effects from repair of the aortic valve. He is under the care of the operator catalyst concentration and compliant with her therapies. 11/26/2024 Anticoagulated (ICD-10 - Z79.01) . There is no contraindication to this patient remaining on anticoagulation during the procedure. I have spoken to the operating room surgical technician at the ophthalmologists office. They do not require the anticoagulation to be held. 11/26/2024 Chronic congestive heart failure, unspecified heart failure type (ICD-10 - I50.9) Her CHF is now well compensated and she is compliant with her medications. Cardiology follow-up has been arranged. 11/26/2024 Sicca syndrome, unspecified (ICD-10 - M35.00) The oral dryness remains unchanged. She has been compliant with frequent visits to her dentist. 11/26/2024 Compression fracture of L2 vertebra, initial encounter (ICD-10 - S32.020A) She is being referred to endocrinology and interventional radiology for vertebroplasty all 11/26/2024 Overweight (BMI 25.0-29.9) (ICD-10 - E66.3) Her body mass index is 26. We agreed to stabilize her weight at this level until the acute illness has resolved. The she will receive dietary counseling and we will try to reduce hher weight at a rate of one half of a pound per week. Plan Of Treatment Medication Medication Name Sig Start Date Stop Date Notes Simvastatin 40 MG TAKE 1 TABLET EVERY EVENING Alendronate Sodium 70 MG TAKE 1 TABLET B Y MOUTH 1 TIME A WEEK 30 MINUTES BEFORE FIRST FOOD OR BEVERAGE OR MEDICINE OF THE DAY WITH WATER levoFLOXacin 500 MG 1 tablet Orally Once a day 09/10/2023 Melatonin 1 MG 1 tablet at bedtime as needed Orally Once a day Aspirin 81 81 MG 1 tablet Orally Once a day Gabapentin 300 MG 1 capsule Orally thr ee times a day 06/23/2024 dexAMETHasone 2 MG 1 tablet Orally twice a day 06/23/2024 Calcium Carbonate 1500 (600 Ca) MG 1 tablet with food Orally Twice a day FeroSul 325 (65 Fe) MG TAKE 1 TABLET BY MOUTH EVERY DAY Levothyroxine Sodium 100 MCG TAKE 1 TABLET DAILY Amiodarone HCl 200 MG TAKE 2 TABLETS BY MOUTH TWICE DAILY FOR 12 DAYS THEN TAKE 1 TABLET BY MOUTH DAILY Oral Metoprolol Tartrate 25 MG TAKE 1 TABLET 2 TIMES DAILYWITH FOOD traZODone HCl 150 MG TAKE 1 TABLET BY MO UT EVERY NIGHT AT BEDTIME Furosemide 20 MG TAKE 1 TABLET BY JOSÉ TH EVERY OTHER DAY Oral Eliquis 5 MG 1 tablet Orally Twice a day D3-1000 25 MCG (1000 UT) 1 capsule Orally Once a day Next Appt Details Follow Up: 6 Weeks, Reason: OV Provider Name:Demetrius Cote , 03/11/2025 10:45:00 AM, [address], [place], [address], Provider Name:Demetrius Alvarado Cote , 11/30/2025 09:30:00 AM, [address] [place] [address] [address], [place], [address], Progress Notes * Kayla CHEUNGDOB:[birth year] (79 yo F)Acc No.[id number]:11/26/2024 Progress Notes Patient: Kayla TORRES Provider: Trinidad Cote MD :1945 A ge:79 Y S ex:Female Date:11/26/2024 Address:[address] [place] [id number] Subjective: * Chief Complaints: * A nnual exam * HPI: D epression Screening: She returns to the office for medical management and her annual physical examination T age of 79. She is currently being evaluated for treatment for her newly diagnosed cancer of the stomach. She has decided against potentially curative surgery in favor of a combination of chemotherapy and radiation. A an abnormality in the liver was recently biopsied by fine needle aspiration and shown to be benign. She has disease limited to the stomach and will receive cheemotherapy from Dr. Potter and then radiation from Dr. Peña all at the [facility]. PHQ-9 L ittle interest or pleasure in doing things?Not at all F eeling down, depressed, or hopeless N ot at all T rouble falling or staying asleep, or sleeping too much S everal days F eeling tired or having little energy S everal days P oor appetite or overeating N ot at all F eeling bad about yourself or that you are a failure, or have let yourself or your family down N ot at all T rouble concentrating on things, such as reading the newspaper or watching television N ot at all M oving or speaking so slowly that other people could have noticed; or the opposite, being so fidgety or restless that you have been moving around a lot more than usual N ot at all T houghts that you would be better off or of hurting yourself in some way N ot at all T otal Score 2 I nterpretation M inimal Depression C OVID-19 Screening: cassandra jean-baptiste surger and she declined, dr potter chemo and rt, dr peña., marie wants a stimulator after, saturday hasd lier bx back pain is same, bone density here today. Questions H ave you had any new onset fever, chills, cough, congestion, sore throat, shortness of breath, muscle aches? N o F all Risk Screening: Fall History H ave you had any falls with injury in the past year? N o H ave you had two or more falls in the past year? N o F all Risk Assessment: N o falls in the past year S BRISA Questions: SDOH Questions I n the past year have you been worried about losing your housing? N o I n the past year have you or any family members you live with been unable to get any of the following when it was really needed? Check all that apply: N one * ROS: G eneral/Constitutional: pain T 11, L2 compression fractures. C hills d enies. F atigue a dmits. F ever d enies. E NT: Decreased hearing d enies. R espiratory: Cough d enies. C ardiovascular: Chest pain with exertion d enies. D yspnea on exertion?denies. S hortness of breath d enies. G astrointestinal: Constipation o ccasional. D ecreased appetite d enies. D iarrhea d enies. H eartburn d enies. N ausea d enies. R ectal bleeding d enies. V omiting d enies. H ematology: bruising d enies. p etechiae d enies. S wollen glands n one have been noted. G enitourinary: Frequent urination a t night. M usculoskeletal: Muscle aches d enies. P ainful joints d enies. S ciatica d enies. W eakness t hat is generalized. S kin: Itching d enies. R stan d enies. S kin lesion(s)?denies. N eurologic: Difficulty speaking d enies. D izziness d enies.?Headache d enies. L ow back pain t hat is chronic. P sychiatric: Depressed mood w hich is mild. * Medical History: * Surgical History: p acermaker insertion 10/2011kyphoplasty 10/2014, 09/2017Mastectomy right breast 11/08/2014battery replacement in pacemaker 02/2020endoscopy at [facility] 01/2020Aorta Catherization 3catheter ablation by Dr Hector Thorne at [facility] 09/2023Liver Bx 11/23/24Spleen removed jorens 2000 * Hospitalization/Major Diagno stic Procedure: M killian * Family History: F ather: 77 yrs, cardiac complications, pacemaker and valve replacement, hypertension, diagnosed with HTN. M other: 92 yrs, kidney failure, cardiac disease, pacemaker. 4 brother(s) - healthy. . She has an adopted daughter and two brothers with hypertension. She is not aware of any inherited cancer family syndrome. She is not aware of any other cases of breast cancer or ovarian cancer or lymphoma in her family. She is not aware of any history of mental illness or substance use disorder or addiction. * Social History: T obacco Use: T obacco Control (Standard) T obacco use: F ormer smoker H ow long has it been since you last smoked??Greater than 10 years A dditional Findings: Tobacco non-user E x-cigarette smoker D rugs/Alcohol: D rugs H ave you used drugs other than those for medical reasons in the past 12 months? N o D rug/Alcohol: A BERNADETTE-C (Standard) D id you have a drink containing alcohol in the past year? N o P oints 0 I nterpretation N egative S he is with children. She is working. She is in remission from the Hodgkins disease for many years. She was born in [place], [place]. The patient lives with her daughter. She has been living in the same house for 45 years. She has a dog that is aging and having trouble. * Medications: T akingtraZODone HCl 150 MG Tablet TAKE 1 TABLET [...] MG Tablet TAKE 1 TABLET EVERY EVENING Alendronate Sodium 70 MG Tablet TAKE 1 [...] 1 TABLET BY MOUTH DAILY Oral Taking traZODone HCl 150 MG Tablet TAKE [...] Tablet TAKE 1 TABLET EVERY EVENING Taking Alendronate Sodium 70 MG Tablet TAKE [...] TAKE 1 TABLET BY MOUTH DAILY Oral DiscontinuedCyclobenzaprine HCl 10 MG Tablet 1 tablet Orally every 8 hours dexAMETHasone 2 MG Tablet 1 tablet Orally twice a day traMADol HCl 50 MG Tablet 1 tablet Orally three times a day Medication List reviewed and reconciled with the patientDiscontinued Cyclobenzaprine HCl 10 MG Tablet 1 tablet Orally every 8 hours Discontinued dexAMETHasone 2 MG Tablet 1 tablet Orally twice a day Discontinued traMADol HCl 50 MG Tablet 1 tablet Orally three times a day Medication List reviewed and reconciled with the patient * Allergies: A moxicillin: hivesSulfamethoxazole-Trimethoprim: hivesPenicillintraMADolNo Known Food Allergyno[Allergies Verified] Objective: * Vitals: H t: 63, Wt:146, BMI:25.86, Ht-cm: 160.02, Wt-k.22. * Examination: G eneral Examination: GENERAL APPEARANCE: p leasant, well nourished, well developed, in no acute distress, calm and relaxed: overweight: elderly woman. HEAD: a traumatic, normocephalic. EYES: e yeny, perrla, anicteric, conjugate. EARS: n ormal. NOSE: s eptum intact. ORAL CAVITY: . Mucous membranes slightly dry, no neoplastic lesion. NECK/THYROID: n o jugular venous distention, no carotid bruit, thyroid normal. LYMPH NODES: n o enlarged lymph nodes,spleen normal. SKIN: n o suspicious lesions, anicteric, Small patches of psoriasis. HEART: n o clicks, gallops, murmurs, or rubs, irregular rhythm, S1, S2 normal, no s3, or vascular bruits. LUNGS: c lear to auscultation . BREASTS: no masses palpable bilaterally, Surgical scars right breast with radiation markings and skin changes. ABDOMEN: b owel sounds normal, no ascites, no organomegaly, no mass: overweight, No palpable mass. RECTAL EXAM: n ot examined. MUSCULOSKELETAL: e xtremities unremarkable, no clubbing, cyanosis or edema, Pain to percussion of T11-L2, mild kyphoscoliosis, Mild pain to range of motion right knee. PERIPHERAL PULSES: n ormal. NEUROLOGIC: a lert and oriented, cranial nerves 2-12 grossly intact, deep tendon reflexes 2+ symmetrical, motor strength normal upper and lower extremities, sensory exam intact. PSYCH: a lert, oriented: thought process logical, goal directed: speech clear: mood/affect full range: judgement and insight good: good eye contact: cooperative with exam: cognitive function intact. Assessment: * Assessment: 1. E seferino gastric cancer - C16.9 (Primary) N otes :This was an incidental finding on upper endoscopy done and a biopsy a cystic pancreatic mass. She is going to arrange for resection with the surgeon next week.Currently undergoing staging. 2 . I nvasive ductal carcinoma of right breast - C50.911 N otes :The mastectomy site is free of any sign of relapse. The left breast is unremarkable. 3 . F ormer smoker - Z87.891 N otes :She is highly motivated not to smoke. We have discussed strategies for maintenance of abstinence in times of stress and illness. 4 . W edge compression fracture of T11 vertebra - S22.080A N otes :Her pain has become minimally but it can be reproduced with percussion. No change in her regimen is needed. 5 . M arginal zone lymphoma - C85.80 N otes :There was no enlargement of the salivary gland or adenopathy or splenomegaly. She continues in a durable remission 6 . S joegren syndrome - M35.00 N otes :This problem is well controlled with oral medication. 7 . R ight knee DJD - M17.9 N otes :The pain in her right knee is mild to moderate and unchanged. No change in her regimen was needed. 8 . A trial fibrillation - I48.91 N otes :She has been well controlled lately. She has been compliant with all of her medications. She was in a regular rhythm today 9 . H ypothyroid - E03.9 N otes :Her TSH has been slightly elevated. If it remains this way on repeat her dose will be adjusted. 1 0. P ancreatic mass - K86.9 N otes :The CA-19-9 is fluctuating but trending upward. On the current CT scan the pancreatic mass has become smaller and the nodules in the liver are stable. However, the pancreatic duct is dilated and there are dilated intrahepatic bile ducts associated with pancreatic atrophy. She will need referral to GI for evaluation and diagnosis. She may need to have surgery on the pancreas. 1 1. O steopenia after menopause - M81.0 N otes :She will have periodic bone densities. I recommended Os-Samy 500 mg twice a day. The thousand units of vitamin D daily. She will be evaluated periodically for alendronate. 1 2. N onrheumatic aortic valve stenosis - I35.0 N otes :Her exercise tolerance is improved and she has no long-term side effects from repair of the aortic valve. He is under the care of the operator catalyst concentration and compliant with her therapies. 1 3. A nticoagulated - Z79.01 N otes :. There is no contraindication to this patient remaining on anticoagulation during the procedure. I have spoken to the operating room surgical technician at the ophthalmologists office. They do not require the anticoagulation to be held. 1 4. C hronic congestive heart failure, unspecified heart failure type - I50.9? Notes :Her CHF is now well compensated and she is compliant with her medications. Cardiology follow-up has been arranged. 1 5. S icca syndrome, unspecified - M35.00 N otes :The oral dryness remains unchanged. She has been compliant with frequent visits to her dentist. 1 6. C ompression fracture of L2 vertebra, initial encounter - S32.020A ? N otes :She is being referred to endocrinology and interventional radiology for vertebroplasty all 1 7. O verweight (BMI 25.0-29.9) - E66.3 N otes :Her body mass index is 26. We agreed to stabilize her weight at this level until the acute illness has resolved. The she will receive dietary counseling and we will try to reduce hher weight at a rate of one half of a pound per week. Plan: * Treatment: * Procedure Codes: * Preventive Medicine: Counseling: C are goal follow-up plan: Counseling for abnormal BMI given Y es Above Normal BMI Follow-up D ietary management education, guidance, and counseling, Dietary needs education, Exercise promotion: strength training, Exercise promotion: stretching, Feeding regime, Giving encouragement to exercise, Lifestyle education regarding diet, Nutrition / feeding management, Nutrition therapy, Prescribed activity/exercise education, Prescribed diet education, Prescribed dietary intake, Special diet education, Weight monitoring , Intervention, Order not done: Medical or Other reason not done S moking/Tobacco Use Patient counseled on the dangers of tobacco use and urged to quit. 0 11/26/2024 * Follow Up: 6 Weeks (Reason: OV) * Images: * Sign off status: Completed true * Provider: Trinidad Cote MD Date: 0 11/26/2024 Generated for Garretti suma/Gustavog/eTransmitting on: 1 04:17 PM EDT History and Physical Notes * HPI (History of Present Illness) Category Sub-Category Detail Notes Depression Screening PHQ-9 Little inte rest or pleasure in doing things: Not at all Feeling down, depressed, or hopeless: No t at all Trouble falling or staying asleep, or sl eeping too much: Several days Feeling tired or having little energy: S everal days Poor appetite or overeating: Not at all Feeling bad about yourself o r that you are a failure, or have let yourself or your family down: Not at all Trouble concentrating on thi ngs, such as reading the newspaper or watching television: Not at all Moving or speaking so slowly that other people could have noticed; or the opposite, being so fidgety or restless that you have been moving around a lot more than usual: Not at all Thoughts that you would be b armando off or of hurting yourself in some way: Not at all Total Score: 2 Interpretation: Minimal Depression Fall Risk Screening Fall History Have you had any falls with injury in the past year?: No Have you had two or more falls in the year?: No Fall Risk Assessment:: No falls in the year COVID-19 Screening Questions Have you had any new onset fever, chills, cough, congestion, sore throat, shortness of breath, muscle aches?: No SDOH Questions SDOH Questions In the past year have you been worried about losing your housing?: No In the past year have you or any family members you live with been unable to get any of the following when it was really needed? Check all that apply:: None Examination Category Sub-Category Detail Notes General Examination GENERAL APPEARANCE: pleasant , well nourished, well developed, in no acute distress, calm and relaxed: overweight: elderly woman HEAD: atraumatic, normocep halic EYES: eomi, perrla, anicte beto, conjugate EARS: normal NOSE: septum intact NECK/THYROID: no jugular venous di stention, no carotid bruit, thyroid normal HEART: no clicks, gallops, murmurs, or rubs, irregular rhythm, S1, S2 normal, no s3, or vascular bruits LUNGS: clear to auscultatio n ABDOMEN: bowel sounds normal, no ascites, no organomegaly, no mass: overweight, No palpable mass NEUROLOGIC: alert and oriented, cranial nerves 2-12 grossly intact, deep tendon reflexes 2+ symmetrical, motor strength normal upper and lower extremities, sensory exam intact SKIN: no suspicious lesion s, anicteric, Small patches of psoriasis PERIPHERAL PULSES: normal BREASTS: no masses palpable b ilaterally, Surgical scars right breast with radiation markings and skin changes MUSCULOSKELETAL: extremities unremark able, no clubbing, cyanosis or edema, Pain to percussion of T11-L2, mild kyphoscoliosis, Mild pain to range of motion right knee LYMPH NODES: no enlarged lymph no maureen,spleen normal RECTAL EXAM: not examined PSYCH: alert, oriented: tho ught process logical, goal directed: speech clear: mood/affect full range: judgement and insight good: good eye contact: cooperative with exam: cognitive function intact ORAL CAVITY: . Mucous membranes s lightly dry, no neoplastic lesion
--- OUTSIDE RECORDS SUMMARY | 2024-11-30 10:20 | XMS_ITS ---
Author Organization Demetrius Cote III, MD Address [address] [place] [address] [place] [address] Care Team Providers Care Plant Physiology Teacher Name Role Phone Dr. Demetrius Cote III Primary Care Provider REASON FOR VISIT FYI only Social History Sex Assigned At : Social History Observation Description Sex Assigned At Female Encounters Encounter Location Date Provider Diagnosis Demetrius Cote III, MD [address] [place] [address] [place] [address] 11/30/2024 Demetrius Cote Plan Of Treatment Next Appt Details Provider Name:Demetrius Cote , 03/11/2025 10:45:00 AM, [address] [place] [address] [place], [address], Provider Name:Demetrius Cote , 11/30/2025 09:30:00 AM, [address] [place] [address] [place], [address], Progress Notes * Kayla CHEUNGDOB:[birth year] (79 yo F)Acc No.[id number]:11/30/2024 Patient: Kayla TORRES :1945 A ge:79 Y S ex:Female [facility] [facility] [place] [address] * true * Date: Generated for Printi ng/Faxing/eTransmitting on: 04:16 PM EDT
--- OUTSIDE RECORDS SUMMARY | 2025-01-07 07:00 | XMS_ITS ---
Author Organization Demetrius Cote III, MD Address [address] [place] [address] Care Team Providers Care Inspector Rag Sorting Name Role Phone Dr. Demetrius Cote III [...] Provider Diagnosis Demetrius Cote III, MD [address] [place] [address] [place] [address] 01/07/2025 Demetrius Cote 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 [...] - S32.020D) On July 20, 2024 at [facility] she underwent kyphoplasty for [...] the procedure. I have spoken to the education and training coordinator at the ophthalmologists office. They do not [...] Weeks, Reason: Telehealth Provider Name:Demetrius Cote , 03/11/2025 10:45:00 AM, [address] [place] [address] [address], [place], [address], Provider Name:Demetrius Cote , 11/30/2025 09:30:00 AM, [address] [place] [address] [address], [place], [address], Progress Notes * Kayla CHEUNGDOB:[birth year] (79 yo F)Acc No.[id number]:01/07/2025 Patient: Kayla TORRES Provider: Trinidad Cote MD :1945 A ge:79 Y S ex:Female Date:01/07/2025 Address:[address] [place], [place] [id number] Subjective: * Chief Complaints: * G astric cancerHistory of Hodgkin's diseaseMarginal zone lymphomaDuctal carcinoma right dpjlycN02 compression fractureSjogrens syndrome * HPI: C OVID-19 Screening: T his telehealth visit took place over 15 minutes with the patient at home and me in my office. She gave consent for billing. This visit was to monitor her medical issues and health during the treatment for gastric cancer. She is receiving chemoradiation. She is being treated at [facility] by Dr. Arndt of r adiation [...] of provider rendering services: { ...} [address] [facility] [address] L ocation of patient: cm lopezess listed [...] breast 11/08/2014battery replacement in pacemaker 02/2020endoscopy at [facility] 01/2020Aorta Catherization atheter ablation by Dr Hector Thorne at [facility] 09/2023Liver Bx 11/23/24Spleen removed jorens 2000 * [...] for many years. She was born in [place], [place]. The patient lives with her daughter. [...] N otes :On July 20, 2024 at [facility] she underwent kyphoplasty for [...] the procedure. I have spoken to the education and training coordinator at the ophthalmologists office. They do not [...] MD Date: 0 01/07/2025 Generated for Yoan moise/Faxing/eTransmitting on: 1 04:16 PM EDT History and Physical Notes * HPI (History of Present Illness) Category Sub-Category Detail Notes Telehealth [facility] ider rendering services:: {...} [address] [facility] [address] Location of patient:: address listed in demographics [...]
--- OUTSIDE RECORDS SUMMARY | 2025-02-05 07:30 | XMS_ITS ---
Author Organization Demetrius Cote III, MD Address [address] [place] [address] Care Team Providers Care Telesales Team Leader Name Role Phone Dr. Demetrius Cote III [...] Additional Findings: Tobacco non-user Ex-cigaret te smoker Problems Problem Type SNOMED Code ICD Code Onset Dates Problem Status W/U Status Risk Notes Problem [id number] Malignant neoplasm of body of stomach (C16.2) Active confirmed She has completed her radiation and will begin chemotherapy. She has opted out of surgery. She is feeling very tired and nauseous and has pain with swallowing from the radiation. Be followed carefully. She is also being followed by radiation oncology and medical oncology at [facility]. Encounters Encounter Location Date Provider Diagnosis Demetrius Cote III, MD [address] [place] [address] [address] [facility] [place] [address] 02/05/2025 Demetrius Cote Malignant neoplasm o f [...] by radiation oncology and medical oncology at [facility]. 02/05/2025 Former smoker (ICD-1 0 - Z87.891) [...] Up: 3 Weeks, Reason: OV Provider Name:Demetrius Christiano Kera , 03/11/2025 10:45:00 AM, [address] [place] [address] [address], [place], [address], Provider Name:Demetrius Christiano Kera , 11/30/2025 09:30:00 AM, [address] [place] [address] [address] [place], [address], Progress Notes * Kayla CHEUNGDOB:[birth year] (79 yo F)Acc No.[id number]:02/05/2025 Patient: Kayla TORRES Provider: Trinidad Cote MD :1945 A ge:79 Y S ex:Female Date:02/05/2025 Address:[address] [place] [id number] Subjective: * Chief Complaints: * R ight breast faayigToccxhdM96 compressionLymphomahistory of Hodgkins diseasePsoriasisSjogrens syndromePancreatic massHypothyroidAortic stenosis, [...] ocation of provider rendering services: { ...} [address] [place] [address] [address] [facility] [address] L ocation of patient: cm ddress listed in demographics for today's visit P atient identification confirmed using: KAREN Kumari ame elehealth method: T elephone only. Patient not [...] breast 11/08/2014battery replacement in pacemaker 02/2020endoscopy at [facility] 01/2020Aorta Catherization 3catheter ablation by Dr Hector Thorne at [facility] 09/2023Liver Bx 11/23/24Spleen removed 1987Sjorens 2000 * Hospitalization/Major Diagno stic Procedure: Denisha [...] for many years. She was born in [place], [place]. The patient lives with her daughter. [...] by radiation oncology and medical oncology at [facility]. 2 . F ormer smoker - Z87.891 [...] true * Provider: Trinidad Cote MD Date: Generated for Yoan moise/Kris/eTransmitting on: 04:17 PM EDT History and Physical Notes * HPI (History of Present Illness) Category Sub-Category Detail Notes Telehealth Location of [facility] rendering services:: {...} [address] [place] [address] [place] [address] Location of patient:: address listed in demographics [...]
--- OUTSIDE RECORDS SUMMARY | 2025-02-09 05:43 | XMS_ITS ---
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 Demetrius Cote III Primary Care Provider [phone] REASON FOR VISIT Needs call back from Social History Sex Assigned At : Social History Observation Description Sex Assigned At Female Encounters Encounter Location Date Provider Diagnosis Demetrius Cote III, MD [address] [place] [address] [place] [address] 02/09/2025 Demetrius Cote Plan Of Treatment Next Appt Details Provider Name:Demetrius Cote , 03/11/2025 10:45:00 AM, [address] [place] [address] [place], [address], Provider Name:Demetrius Cote , 11/30/2025 09:30:00 AM, [address] [place] [address] [place], [address], Progress Notes * Kayla CHEUNGDOB:[birth year] (79 yo F)Acc No.[id number]:02/09/2025 Patient: Kayla TORRES :1945 A ge:79 Y S ex:Female Address:[address] [place] [phone] * true * Date: Generated for Printi ng/Faxing/eTransmitting on: 04:16 PM EDT
--- OUTSIDE RECORDS SUMMARY | 2025-02-10 05:30 | XMS_ITS ---
Author Organization Demetrius Cote III, MD Address [address] [place] [address] [place] [address] Care Team Providers Care Rn Digestive Name Role Phone Dr. Demetrius Cote III Primary Care Provider [phone] Allergies Allergen (clinical drug ingredient) Drug/Non Drug [...] date:02/12/2025 06:22:18 AM Interpretation: Performing Lab: Notes/Report: [facility] [address] [place] [id number] XRay Report Signed Patient: Kayla Cheung MR#: [id number] : 1945 Acct:[id number] Age/Sex: 79 / F ADM Date: 02/10/25 Loc: HO.XRAY Attending Dr: Demetrius Cote MD Ordering Physician: Demetrius Cote MD Date of Service: 02/10/25 Procedure(s): XR thoracic spine 3V Accession Number(s): [id number] cc: Demetrius Cote MD Reason for Exam: [...] 02/10/25 1046 DD/ 1021 TD/TT: 02/10/25 1033 Mechanical Technician: [place] [id number] XRay Report Signed Patient: Rose Cheung MR#: [id number] : 1945 Acct:[id number] Age/Sex: 79 / F ADM Date: 02/10/25 Loc: PHILLIP Attending Dr: Demetrius Cote MD Ordering Physician: Demetrius Cote MD Date of Service: 02/10/25 Procedure(s): XR tho racic spine 3V Accession Number(s): [id number] cc: Demetrius Cote MD Reason for Exam: [...] 02/10/25 1046 DD/ 1021 TD/TT: 02/10/25 1033 Mechanical Technician: REASON FOR VISIT Acute severe neck pain, [...] Problem Status W/U Status Risk Notes Problem Neck pain (78953029) Neck pain (M54.2) Active confirmed During the radiation He currently painful area of her neck rested directly upon the edge of the radiation block. The radiation was completed late last week and the pain began yesterday. Review of the images done today shows severe disc disease between C5 and C6 but no obvious compression fracture. The bones are demineralized. Vital Signs Height 63 in 02/10/2025 Weight 133 lbs 02/10/2025 BMI 23.56 kg/m2 02/10/2025 Encounters Encounter Location Date Provider Diagnosis Demetrius Cote III, MD [address] [place] [address] [place] [address] 02/10/2025 Demetrius Cote Neck pain M54.2 ; Compression fracture [...] by radiation oncology and medical oncology at [facility]. 02/10/2025 Hypothyroid (ICD-10 - E03.9) Her [...] He is under the care of the senior front end web developer and compliant with her therapies. 02/10/2025 Anticoagulated (ICD-10 - Z79.01) . There is no contraindication to this patient remaining on anticoagulation during the procedure. I have spoken to the surgical appliance fitter at the ophthalmologists office. They do not [...] 3 Days, Reaso n: ov Provider Name:Demetrius Cote , 03/11/2025 10:45:00 AM, [address] [place] [address] [address], [place], [address], Provider Name:Demetrius Cote , 11/30/2025 09:30:00 AM, [address] [place] [address] [address], [place], [address], Progress Notes * Kayla CHEUNGDOB:[birth year] (79 yo F)Acc No.[id number]:02/10/2025 Progress Notes Patient: Kayla TORRES Provider: Trinidad Cote MD :1945 A ge:79 Y S ex:Female Date:02/10/2025 Address:[address] [place] [id number] Subjective: * Chief Complaints: * A cute [...] breast 11/08/2014battery replacement in pacemaker 02/2020endoscopy at [facility] 01/2020Aorta Catherization 3catheter ablation by Dr Hector Thorne at [facility] [place] 09/2023Liver Bx 11/23/24Spleen removed [...] for many years. She was born in [place], [place]. The patient lives with her daughter. [...] by radiation oncology and medical oncology at [facility]. 1 6. H ypothyroid - E03.9 [...] He is under the care of the senior front end web developer and compliant with her therapies. 1 9. A nticoagulated - Z79.01 N otes :. There is no contraindication to this patient remaining on anticoagulation during the procedure. I have spoken to the surgical appliance fitter at the ophthalmologists office. They do not [...] Date: 1 Generated for Yoan moise/Kris/Chrisitting on: 04:17 PM EDT History and Physical [...]
--- OUTSIDE RECORDS SUMMARY | 2025-02-16 06:20 | XMS_ITS ---
Author Organization Demetrius Cote III, MD Address [address] [place] [address] [place] [address] Care Team Providers Care Acid Condenser Name Role Phone Dr. Demetrius Cote III Primary Care Provider REASON FOR VISIT Regarding Neck Social History Sex Assigned At : Social History Observation Description Sex Assigned At Female Encounters Encounter Location Date Provider Diagnosis Demetrius Cote III, MD [address] [place] [address] [address] [facility] [place] [address] 02/16/2025 Demetrius Cote Plan Of Treatment Next Appt Details Provider Name:Demetrius Cote , 03/11/2025 10:45:00 AM, [address] [place] [address] [place], [address], Provider Name:Demetrius Cote , 11/30/2025 09:30:00 AM, [address] [place] [address] [place], [address], Progress Notes * Kayla CHEUNGDOB:[birth year] (79 yo F)Acc No.[id number]:02/16/2025 Patient: Kenan CASHSHIVKayla :1945 A ge:79 Y S ex:Female Address:[address] [place] [address] [facility] [place] [address] * * Date:
--- OUTSIDE RECORDS SUMMARY | 2025-02-26 07:15 | XMS_ITS ---
Author Organization Demetrius Cote III, MD Address [address] [place] [address] Care Team Providers Care Online Merchandising Specialist Name Role Phone Dr. Demetrius Cote III Primary Care Provider [phone] Allergies Allergen (clinical drug ingredient) Drug/Non Drug Allergy documented on EMR Reaction Allergy Type Onset Date Status Penicillin Unknown Drug Allergy Active tramadol traMADol Unknown Drug Allergy Active No Known Food Allergy Unknown Drug Allergy Active sulfamethoxazole / trimethoprim Sulfamethoxazole-Tri methoprim hives Drug Allergy Active amoxicillin Amoxicillin hives Drug Allergy Act anmol REASON FOR VISIT Follow up Medications Medication SIG (Take, Route, Frequency, Duration) [...] HCl 150 MG TAKE 1 TABLET BY [facility] EVERY NIGHT AT BEDTIME Active Metoprolol Tartrate [...] Tobacco non-user Ex-cigaret te smoker Vital Signs Temperature 98.6 degrees Fahrenheit 02/27/20 25 Blood pressure systolic 139 mm Hg 02/27/20 25 Blood pressure diastolic 71 mm Hg 025 Heart Rate 88 /min 02/26/2025 Height 63 in 02/26/2025 Weight 134 lbs 02/26/2025 BMI 23.73 kg/m2 02/26/2025 Encounters Encounter Location Date Provider Diagnosis Demetrius Cote III, MD [address] [place] [address] DR ACEVEDO [address] [place] [address], [place] [address] 02/26/2025 Demetrius Cote Neck pain M54.2 Assessments Encounter Date Diagnosis (ICD Code) Assessment Notes Treatment Notes Treatment Clinical Notes 02/26/2025 Neck pain (ICD-10 - M54.2) During the radiation He currently painful area of her neck rested directly upon the edge of the radiation block. The radiation was completed late last week and the pain began yesterday. Review of the images done today shows severe disc disease between C5 and C6 but no obvious compression fracture. The bones are demineralized. Plan Of Treatment Medication Medication Name Sig [...] Provider Name:Demetrius Cote , 03/11/2025 10:45:00 AM, [address] [place] [address] [address] [place], [place], [address], Provider Name:Demetrius Cote , 11/30/2025 09:30:00 AM, [address] [place] [address] [place], [place], [address], Progress Notes * Kayla CHEUNGDOB:[birth year] (79 yo F)Acc No.[id number]:02/26/2025 Progress Notes Patient: Kayla TORRES Provider: Trinidad Cote MD :1945 A ge:79 Y S ex:Female Date:02/26/2025 Address:[address] [place], [place] [id number] Subjective: * Chief Complaints: * 1 . Follow up. * HPI: C OVID-19 Screening: Questions H ave you had any new onset fever, chills, cough, congestion, sore throat, shortness of breath, muscle aches? N o * ROS: G eneral/Constitutional: pain o nly normal aches and pains. C hills d enies.?Fatigue a dmits. F ever d enies. E NT: Decreased hearing d enies. R espiratory: Cough d enies. C ardiovascular: Chest pain with exertion d enies. D yspnea on exertion?denies. S hortness of breath d enies. G astrointestinal: Constipation d enies. D ecreased appetite d enies.?Diarrhea d enies. H eartburn d enies. N ausea d enies. R ectal bleeding?denies. V omiting d enies. H ematology: bruising d enies. p etechiae d enies. S wollen glands n one have been noted. G enitourinary: Frequent urination d enies. M usculoskeletal: Muscle aches d enies. P ainful joints d enies. S ciatica d enies. W eakness d enies. S kin: Itching d enies. R stan d enies. S kin lesion(s)?denies. N eurologic: Difficulty speaking d enies. D izziness d enies.?Headache d enies. L ow back pain d enies. P sychiatric: Depressed mood d enies. * Medical History: N ulliparous, Psoriasis, Hodgkins [id number], Sjogren's syndrome 2000, Insomnia, Hypothyroidism, DJD of the right knee, Marginal zone lymphoma 2005, Tia 10/2011, Bradycardia 10/2011, Afib, last mammogram @[facility], compression fracture vertebral body T11,T12, [id number] carcinoma of the right breast June,, Former smoker, April 2015 cystic lesion of pancreas, Cholelithiasis, Paroxysmal atrial fibrillation, pacemaker, high degree AV block, Aortic stenosis December 01, 2021, valve area 0.9 cm2, Aortic regurgitation, Tricuspid regurgitation, The patient has a history of back [...] levels are good. Her pancreas is being monitored.. * Surgical History: p acermaker insertion 10/2011, kyphoplasty 10/2014, 09/2017, Mastectomy right breast 11/08/2014, battery replacement in pacemaker 02/2020, endoscopy at [facility] 01/2020, Aorta Catherization 08/2022, [place] H[place] [facility] [place] [facility], Liver Bx 11/23/24, Spleen removed 1987, Sjorens 2000. * Hospitalization/Major Diagno stic Procedure: Denisha daily . * Family History: F ather: 77 yrs, [...] for many years. She was born in [place], [place]. The patient lives with her daughter. She has been living in the same house for 45 years. She has a dog that is aging and having trouble. * Medications: T aking Levothyroxine Sodium 100 MCG Tablet TAKE 1 TABLET DAILY , Taking Simvastatin 40 MG Tablet TAKE 1 TABLET EVERY EVENING , Taking Alendronate Sodium 70 MG Tablet TAKE 1 TABLET BY MOUTH 1 TIME A WEEK 30 MINUTES BEFORE FIRST FOOD OR BEVERAGE OR MEDICINE OF THE DAY WITH WATER , Taking traZODone HCl 150 MG Tablet TAKE 1 TABLET BY MOUTH EVERY NIGHT AT BEDTIME , Taking Metoprolol Tartrate 25 MG Tablet TAKE 1 TABLET 2 TIMES DAILYWITH FOOD , Taking Calcium Carbonate 1500 (600 Ca) MG Tablet 1 tablet with food Orally Twice a day , Taking Gabapentin 300 MG Capsule 1 capsule Orally three times a day , Taking dexAMETHasone 2 MG Tablet 1 tablet Orally twice a day , Taking FeroSul 325 (65 Fe) MG Tablet TAKE 1 TABLET BY MOUTH EVERY DAY , Taking levoFLOXacin 500 MG Tablet 1 tablet Orally Once a day , Taking Melatonin 1 MG Tablet 1 tablet at bedtime as needed Orally Once a day , Taking Aspirin 81 81 MG Tablet Delayed Release 1 tablet Orally Once a day , Taking Eliquis 5 MG Tablet 1 tablet Orally Twice a day , Taking D3-1000 25 MCG (1000 UT) Capsule 1 capsule Orally Once a day , Taking Furosemide 20 MG Tablet TAKE 1 TABLET BY MOUTH EVERY OTHER DAY Oral , Taking Amiodarone HCl 200 MG Tablet TAKE 2 TABLETS BY MOUTH TWICE DAILY FOR 12 DAYS THEN TAKE 1 TABLET BY MOUTH DAILY Oral , Medication List reviewed and reconciled with the patient * Allergies: A moxicillin: hives, Sulfamethoxazole-Trimethoprim: hives, Penicillin, traMADol, No Known Food Allergy. Objective: * Vitals: H t: 63, Wt:134, BMI:23.73, BP:139/71, HR:88, Temp:98.6, Ht-cm: 160.02, Wt-k.78. * Examination: G eneral Examination: GENERAL APPEARANCE: p leasant, well nourished, well developed, in no acute distress, calm and relaxed. HEAD: a traumatic, normocephalic. EYES: e yeny, [...] extremities, sensory exam intact. PSYCH: a lert, oriented. Assessment: * Assessment: 1. N flaco pain - M54.2 N otes :During the radiation He currently painful area of her neck rested directly upon the edge of the radiation block. The radiation was completed late last week and the pain began yesterday. Review of the images done today shows severe disc disease between C5 and C6 but no obvious compression fracture. The bones are demineralized. Plan: * Treatment: * Follow Up: 2 Weeks (Reason: OV) * Images: * The named appointment provid er may or may not be the originator of this progress note, and it is not deemed complete until electronically signed by the appointment provider. Sign off status: Pending * Provider: Trinidad Cote MD Date: Generated for Garretti ng/Kris/eTransmitting on: 04:18 PM EDT History and Physical Notes * HPI (History of Present Illness) Category Sub-Category Detail Notes COVID-19 Screening Questions Have you had any new onset fever, chills, cough, congestion, sore throat, shortness of breath, muscle aches?: No Examination Category Sub-Category Detail Notes General Examination GENERAL APPEARANCE: pleasant , well nourished, well developed, in no acute distress, calm and relaxed HEAD: atraumatic, normocep halic EYES: eomi, perrla, [...] BREASTS: no masses palpable b ilaterally MUSCULOSKELETAL: extremities unremark able, no clubbing, cyanosis or edema LYMPH NODES: no enlarged lymph no maureen,spleen normal RECTAL EXAM: not examined PSYCH: alert, oriented ORAL CAVITY: normal, unremarkable
--- NOTE | 2025-02-26 14:24 | A.SPINEOV_ITS ---
Intake Visit Reasons: neck pain Intake Note: Mrs. Cheung is here today c/o new symptoms of neck pain. 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: No Allergies amoxicillin (AMOXICILLIN) Allergy (Severe, Verified 02/26/25 14:25) hives, anaphylaxis, hives Penicillins (PENICILLINS) Allergy (Mild, Verified 02/26/25 14:25) hives, itching Sulfa (Sulfonamide Antibiotics) (SULFA (SULFONAMIDE ANTIBIOTICS)) Allergy (Mild, Verified 02/26/25 14:25) HIVES, itching Assessment & Plan Assessment & Plan (1) Osteoporosis: Code(s): M81.0 - Age-related osteoporosis without current pathological fracture Category: Medical (2) Acute neck pain: Code(s): M54.2 - Cervicalgia Category: Medical Plan: Dear colleague, On 02/26/2025 I saw Kayla Nick for acute neck pain. This 79-year-old female underwent radiation therapy for stomach cancer. She said the put some form of pillow behind her neck after which she developed acute neck pain. Pain is located in the posterior neck in his nonradiating. No weakness or numbness. The pain is not improving. The patient has osteoporosis On exam, she is able to move her neck in all directions without significant discomfort. Axial loading is nonpainful. No upper extremity symptoms of weakness or numbness. An x-ray of the cervical spine shows degenerative disc disease C5-6. I explained to the patient that the degenerative disc disease this is a chronic condition most likely not responsible 40 acute neck pain. I would like to obtain an MRI of the cervical spine to make sure that she did not suffer a mild compression fracture or if there sign of an inflammatory response in his cervical spine. I will see her after the MRIs done. I spent 20 consult for history and discussing plan of care. Samir Ryan MD, PhD Spine Fellowship Trained Neurosurgeon Director, [facility] Plan h Orders: Orders MR cervical spine wo con 3 Weeks M54.2 - Cervicalgia, M81.0 - Age-related osteoporosis without current pathological fracture Coding Level of Care Code Est Pt Level 3 (07112) Diagnoses Osteoporosis M81.0 Acute neck pain M54.2
--- OUTSIDE RECORDS SUMMARY | 2025-02-26 16:17 | XMS_ITS | Clinical Summary ---
Author Organization [facility] Address [address] [place] [address] Care Team Providers Care Blasting Helper Name Role Phone Unavailable Primary Care Provider [...]
--- OUTSIDE RECORDS SUMMARY | 2025-02-26 16:18 | XMS_ITS | Patient Health Record ---
Author Organization Demetrius Cote III, MD Address [address] [place] [address] [place] [address] Care Team Providers Care Apple Checker Name Role Phone Dr. Demetrius Cote III [...] date:02/12/2025 06:22:18 AM Interpretation: Performing Lab: Notes/Report: [address] [address] XRay Report Signed Patient: Kayla Cheung MR#: [id number] : 1945 Acct:[id number] Age/Sex: 79 / F ADM Date: 02/10/25 Loc: HO.NEETAAY Attending Dr: Demetrius Cote MD Ordering Physician: Demetrius Cote MD Date of Service: 02/10/25 Procedure(s): XR thoracic spine 3V Accession Number(s): [id number] cc: Demetrius Cote MD Reason for Exam: [...] 02/10/25 1046 DD/ 1021 TD/TT: 02/10/25 1033 Steamtable Worker: [place] [address] XRay Report Signed Patient: Kayla Cheung MR#: [id number] : 1945 Acct:[id number] Age/Sex: 79 / F ADM Date: 02/10/25 Loc: PHILLIP Attending Dr: Demetrius Cote MD Ordering Physician: Demetrius Cote MD Date of Service: 02/10/25 Procedure(s): XR thoracic spine 3V Accession Number(s): [id number] cc: Demetrius Cote MD Reason for Exam: COMPRESSION FX EXAMINATION: XR THORACIC SPINE CLINICAL INFORMATION: COMPRESSION FX COMPARISON: None available. TECHNIQUE: 2 views of the thora cic spine were obtained. FINDINGS: Defibrillating pacemaker is [...] 02/10/25 1046 DD/ 1021 TD/TT: 02/10/25 1033 Steamtable Worker: NM bone scan limited area Reviewed date:07/09/2024 08:39:37 PM Interpretation: Performing Lab: Notes/Report: [address] [address] Nuclear Medicine Report Signed Patient: Kayla Cheung MR#: [id number] : 1945 Acct:[id number] Age/Sex: 79 / F ADM Date: 07/09/24 Loc: CELINA Attending Dr: Demetrius Cote MD Ordering Physician: Demetrius Cote MD Date of Service: 07/09/24 Procedure(s): NM bone scan limited area Accession Number(s): [id number] cc: Demetrius Cote MD EXAMINATION: BONE SCAN [...] signed by Idris Perez MD in OV> 07/09/241452 DD/ 1015 TD/TT: 07/09/24 1400 Steamtable Worker: [address] [address] Nuclear Medicine Report Signed Patient: Kayla Cheung MR#: [id number] : 1945 Acct:[id number] Age/Sex: 79 / F ADM Date: 07/09/24 Loc: CELINA Attending Dr: Demetrius Cote MD Ordering Physician: Demetrius Cote MD Date of Service: 07/09/24 Procedure(s): NM bon e scan limited area Accession Number(s): [id number] cc: Demetrius Cote MD EXAMINATION: BONE SCAN [...] by: Idris Perez MD 07/09/2024 02:53 PM [facility] Dictated By: Idris Perez MD Signed By: <Electronically signed by Idris Perez MD in OV> 07/09/241452 DD/ 1015 TD/TT: 07/09/24 1400 Steamtable Worker: TRUPTI Complete Blood Count Auto Di ff Reviewed date:03/24/2024 06:03:54 AM Interpretation: Performing Lab:[facility], [address] [place] [address] Notes/Report: White Blood Count 8.0 4.8-10.8 X10*3/uL [...] NRBC Abs Auto 0.000 0.0-0.012 X10*3/uL Comprehensive [place]. Panel Fa st Reviewed date:03/24/2024 06:03:54 AM Interpretation: Performing Lab:[facility], [address] [place] [address] Notes/Report: Sodium 139 135-145 mmol/L Potassium 4.9 [...] Panel Reviewed date:03/24/2024 06:03:54 AM Interpretation: Performing Lab:[address] [address] Notes/Report: Triglycerides 45 <150 mg/dL Desirable Triglyceride: [...] 19-9 Reviewed date:03/30/2024 10:13:09 AM Interpretation: Performing Lab:[address] [address] Notes/Report: Carbohydrate Antigen 19-9 54 <34 U/mL This test was performed using the Siemens chemiluminescent method. Values obtained from different assay methods cannot be used interchangeably. CA 19-9 levels, regardless of value, should not be interpreted as absolute evidence of the presence or absence of disease. THIS TEST WAS PERFORMED AT: [facility] [address] [place] [phone] ANNAMARIA EVANS MD Complete Blood Count Auto Di ff Reviewed date:04/24/2024 11:20:45 AM Interpretation: Performing Lab:[facility], [address] [place] [address] Notes/Report: White Blood Count 5.7 4.8-10.8 X10*3/uL [...] Panel Reviewed date:04/24/2024 11:20:45 AM Interpretation: Performing Lab:[facility], [address] [place] [address] Notes/Report: Sodium 141 135-145 mmol/L Potassium 4.7 [...] 19-9 Reviewed date:04/24/2024 11:20:45 AM Interpretation: Performing Lab:[address] [address] Notes/Report: Carbohydrate Antigen 19-9 49 <34 U/mL This test was performed using the Siemens chemiluminescent method. Values obtained from different assay methods cannot be used interchangeably. CA 19-9 levels, regardless of value, should not be interpreted as absolute evidence of the presence or absence of disease. THIS TEST WAS PERFORMED AT: [facility] [address] [address] abdomen w con Reviewed date:04/24/2024 11:20:45 AM Interpretation: Performing Lab: Notes/Report: [address] [address] [address] Scan Report Signed Patient: Kayla Cheung MR#: [id number] : 1945 Acct:[id number] Age/Sex: 78 / F ADM Date: 04/16/24 Loc: HO.CT Attending Dr: Demetrius Cote MD Ordering Physician: Demetrius Cote MD Date of Service: 04/16/24 Procedure(s): CT abdomen w IV con Accession Number(s): [id number] cc: Demetrius Cote MD EXAMINATION: CT ABDOMEN [...] 04/17/24 1450 DD/ 1508 TD/TT: 04/16/24 1525 Steamtable Worker: BERT [address] [address] [address] Scan Report Signed Patient: Kayla Cheung MR#: [id number] : 1945 Acct:[id number] Age/Sex: 78 / F ADM Date: 04/16/24 Loc: HO.CT Attending Dr: Demetrius Cote MD Ordering Physician: Demetrius Cote MD Date of Service: 04/16/24 Procedure(s): CT abdomen w IV con Accession Number(s): [id number] cc: Demetrius Cote MD EXAMINATION: CT ABDOMEN [...] 04/17/24 1450 DD/ 1508 TD/TT: 04/16/24 1525 Steamtable Worker: BERT XR lumbar spine 2-3V Reviewed date:06/24/2024 03:42:39 PM Interpretation: Performing Lab: Notes/Report: [address] [address] XRay Report Signed Patient: Kayla Cheung MR#: [id number] : 1945 Acct:[id number] Age/Sex: 79 / F ADM Date: 06/24/24 Loc: .ED Attending Dr: Ordering Physician: Generic ED Physician Date of Service: 06/24/24 Procedure(s): XR lumbar spine 2-3V Accession Number(s): [id number] cc: Demetrius Cote MD; Generic ED Physician [...] signed by Tristin Posadas MD in OV> 06/24/24927 DD/ 3 TD/TT: 06/24/24913 Steamtable Worker: [place] [address] XRay Report Signed Patient: Kayla Cheung MR#: [id number] : 1945 Acct:[id number] Age/Sex: 79 / F ADM Date: 06/24/24 Loc: HO.ED Attending Dr: Ordering Physician: Generic ED Physician Date of Service: 06/24/24 Procedure(s): XR lum bar spine 2-3V Accession Number(s): [id number] cc: Demetrius Cote MD; Generic ED Physician [...] Tristin Posadas MD 06/24/2024 09:28 AM EST RP Dictated By: Tristin Posadas MD Signed By: <Electronically signed by Tristin Posadas MD in OV> 06/24/24927 DD/ 3 TD/TT: 06/24/24913 Steamtable Worker: XR sacrum coccyx min 2V Reviewed date:06/24/2024 03:42:39 PM Interpretation: Performing Lab: Notes/Report: [address] [address] XRay Report Signed Patient: Kayla Cheung MR#: [id number] : 1945 Acct:[id number] Age/Sex: 79 / F ADM Date: 06/24/24 Loc: .ED Attending Dr: Ordering Physician: Generic ED Physician Date of Service: 06/24/24 Procedure(s): XR sacrum coccyx min 2V Accession Number(s): [id number] cc: Demetrius Cote MD; Generic ED Physician [...] in OV> 06/24/24921 DD/ 3 TD/TT: 06/24/24913 Steamtable Worker: [address] [address] XRay Report Signed Patient: Kayla Cheung MR#: [id number] : 1945 Acct:[id number] Age/Sex: 79 / F ADM Date: 06/24/24 Loc: HO.ED Attending Dr: Ordering Physician: Generic ED Physician Date of Service: 06/24/24 Procedure(s): XR sac rum coccyx min 2V Accession Number(s): [id number] cc: Demetrius Cote MD; Generic ED Physician [...] by: Tristin Posadas MD 06/24/2024 09:22 AM [facility] Dictated By: Tristin Posadas MD Signed By: <Electronically signed by Tristin Posadas MD in OV> 06/24/24921 DD/ 3 TD/TT: 06/24/24913 Steamtable Worker: Complete Blood Count Auto Di ff Reviewed date:07/21/2024 12:18:28 PM Interpretation: Performing Lab:[facility], [address] [place] [address] Notes/Report: White Blood Count 7.5 4.8-10.8 X10*3/uL [...] INR Reviewed date:07/21/2024 12:18:28 PM Interpretation: Performing Lab:[address] [address] Notes/Report: Prothrombin Time 12.2 10.9-12.4 [employer] [...] Time Reviewed date:07/21/2024 12:18:28 PM Interpretation: Performing Lab:[address] [address] Notes/Report: Partial Thromboplastin Time 28.9 26.0-36.8 SEC For information regarding the monitoring of direct thrombin inhibitors, please refer to Pharmacy. Basic Metabolic Panel Reviewed date:07/21/2024 12:18:28 PM Interpretation: Performing Lab:[facility], [address] [place] [address] Notes/Report: Sodium 132 135-145 mmol/L Potassium 4.2 [...] date:07/22/2024 08:48:26 PM Interpretation: Performing Lab: Notes/Report: [address] [address] Interventional Radiology Rpt Signed Patient: Kayla Cheung MR#: [id number] : 1945 Acct:[id number] Age/Sex: 79 / F ADM Date: 07/20/24 Loc: HO.[facility] Attending Dr: Demetrius Cote MD Ordering Physician: Demetrius Cote MD Date of Service: 07/20/24 Procedure(s): IR kyphoplasty lumbar Accession Number(s): [id number] cc: Demetrius Cote MD; Physician,Unknown Examination: L2 [...] Idris Perez MD 07/22/2024 03:26 PM EDT Dictated By: Idris Perez MD Signed By: <Electronically signed by Idris Perez MD in OV> 07/22/24 1526 DD/ 1330 TD/TT: 07/20/24 1549 Steamtable Worker: [place] [address] Interventional Radiology Rpt Signed Patient: Kayla Cheung MR#: [id number] : 1945 Acct:[id number] Age/Sex: 79 / F ADM Date: 07/20/24 Loc: HO.SSS Attending Dr: Demetrius Cote MD Ordering Physician: Demetrius Cote MD Date of Service: 07/20/24 Procedure(s): IR kyphoplasty lumbar Accession Number(s): [id number] cc: Demetrius Cote MD; Physician,Unknown Examination: L2 [...] Idris Perez MD 07/22/2024 03:26 PM EDT Dictated By: Idris Perez MD Signed By: <Electronically signed by Idris Perez MD in OV> 07/22/24 1526 DD/ 1330 TD/TT: 07/20/24 1549 Steamtable Worker: [facility] MM tomosynthesis screening L T Reviewed date:10/04/2024 08:13:31 PM Interpretation: Performing Lab: Notes/Report: [place] [facility] [address] [place] [address] Mammography Report Signed Patient: Kayla Cheung MR#: [id number] : 1945 Acct:[id number] Age/Sex: 79 / F ADM Date: 08/17/24 Loc: HO.MAMMO Attending Dr: Demetrius Cote MD Ordering Physician: Demetrius Cote MD Results: 1Negativ e Date of Service: 08/17/24 Follow Up: 1 Year From [facility] Mammogram Procedure(s): MM tomosynthesis screening LT Accession Number(s): [id number] cc: Demetrius Cote MD EXAMINATION: MM SCREENING DIGITAL BREAST TOMOSYNTHESIS, BILATERAL CLINICAL INFORMATION: Screening. Asymptomatic. Right Mastectomy 2016. COMPARISON: Mammography: This study is compared [...] 08/25/24 1459 DD/ 0850 TD/TT: 08/17/24 0908 Steamtable Worker: [place] [facility] [address] [place], [place] [address] Mammography Report Signed Patient: Kayla Cheung MR#: [id number] : 1945 Acct:[id number] Age/Sex: 79 / F ADM Date: 08/17/24 Loc: HO.MAMMO Attending Dr: Demetrius Cote MD Ordering Physician: Demetrius Cote MD Results: 1Negativ e Date of Service: 08/17/24 Follow Up: 1 Year From Orig ina Mammogram Procedure(s): MM tomosynthesis screening LT Accession Number(s): [id number] cc: Demetrius Cote MD EXAMINATION: MM SCREENING DIGITAL BREAST TOMOSYNTHESIS, BILATERAL CLINICAL INFORMATION: Screening. Asymptomatic. Right Mastectomy 2016. COMPARISON: Mammography: This st udy is compared [...] 08/25/24 1459 DD/ 0850 TD/TT: 08/17/24 0908 Steamtable Worker: MAMMOGRAM DIGITAL BILATERAL SCREEN Reviewed date:11/26/2024 09:26:11 AM Interpretation:undefined Performing Lab: Notes/Report: undefined CT bony pelvis Reviewed date:10/04/2024 08:13:31 PM Interpretation: Performing Lab: Notes/Report: [address] [address] [address] Scan Report Signed Patient: Kayla Cheung MR#: [id number] : 1945 Acct:[id number] Age/Sex: 79 / F ADM Date: 09/12/24 Loc: .ED Attending Dr: Ordering Physician: Ana Moreira Date of Service: 09/12/24 Procedure(s): CT bony pelvis Accession Number(s): [id number] cc: Demetrius Cote MD; Ana Moreira Report Number: [id number]: Total DLP = 0.00 mGy-cm CLINICAL HISTORY: pain CT pelvis without contrast Comparison: None Findings: Fecal retention again noted throughout the colon. There is diverticulosis present and there is faint stranding about the sigmoid colon, axial images 197 -205. The sacrum is intact. Xxcn-wc-bcabmkij degenerative changes seen at both hips. The bony pelvis is intact. Impression: Possible mild diverticulitis. Mild stranding about the distal sigmoid colon as detailed. The bony pelvis is intact with degenerative changes. This document has been electronically signed by: Blue Carlin MD on 09/12/2024 10:17:04 Dictated By: Blue Carlin MD Signed By: <Electronically signed by Blue Carlin MD in OV> 09/12/24 1017 DD/ 1017 TD/TT: 09/12/24 1017 Steamtable Worker: [address] [address] [address] Scan Report Signed Patient: Kayla Cheung MR#: [id number] : 1945 Acct:[id number] Age/Sex: 79 / F ADM Date: 09/12/24 Loc: .ED Attending Dr: Ordering Physician: Ana Moreira Date of Service: 09/12/24 Procedure(s): CT bon y pelvis Accession Number(s): [id number] cc: Demetrius Cote MD; Ana Moreira Report Number: [id number]: Total DLP = 0.00 mGy-cm CLINICAL HISTORY: pain CT pelvis without contrast Comparison: None Findings: Fecal retention agai n noted throughout the colon. There is diverticulo sis present and there is faint stranding about the sigmoid colon, axial images 197 -205. The sacrum is intact. Vbyv-fw-vqthxera degenerative changes seen at both hips. The bony pelvis is intact. Impression: Possible mild diverticulitis. Mild stranding about the distal sigmoid colon as detailed. The bony pelvis is intact with degenerative changes. This document has be en electronically signed by: Blue Carlin MD on 09/12/2024 10:17:04 Dictated By: Blue Carlin MD Signed By: <Electronically signed by Blue Carlin MD in OV> 09/12/24 1017 DD/ 1017 TD/TT: 09/12/24 1017 Steamtable Worker: CT lumbar spine wo con Reviewed date:10/04/2024 08:13:31 PM Interpretation: Performing Lab: Notes/Report: [address] [address] [address] Scan Report Signed Patient: Kayla Cheung MR#: [id number] : 1945 Acct:[id number] Age/Sex: 79 / F ADM Date: 09/12/24 Loc: .ED Attending Dr: Ordering Physician: Ana Moreira Date of Service: 09/12/24 Procedure(s): CT lumbar spine wo IV con Accession Number(s): [id number] cc: Demetrius Cote MD; Ana Moreira Report Number: [id number]: Total DLP = 625.47 mGy-cm CLINICAL HISTORY: hx of malignancy, back pain CT lumbar spine without contrast Comparison: CT/ID/SR - CT LUMBAR SPINE POST VERT - 07/20/24 15:46 EDT Findings: Kyphoplasty cement again noted within T11, T12 and L2. There is minimal anterior superior endplate height loss at L3 which is new from prior. Complete disc space loss at L3-L4 with moderately severe central canal stenosis at this level, axial 209, series 5. There is also moderately severe central canal stenosis at L4-L5, axial 350, series 6. Diffuse fecal retention within the colon. Moderate atherosclerotic disease. Impression: There is a mild anterior superior endplate compression fracture L3 which is new since the comparison CT in July. Otherwise moderately severe degenerative and post kyphoplasty changes. This document has been electronically signed by: Blue Carlin MD on 09/12/2024 10:14:43 Dictated By: Blue Carlin MD Signed By: <Electronically signed by Blue Carlin MD in OV> 09/12/24 1016 DD/ 1014 TD/TT: 09/12/24 1014 Steamtable Worker: [place] [address] CT Scan Report Signed Patient: Kayla Cheung MR#: [id number] : 1945 Acct:[id number] Age/Sex: 79 / F ADM Date: 09/12/24 Loc: HO.ED Attending Dr: Ordering Physician: Ana Moreira Date of Service: 09/12/24 Procedure(s): CT lum bar spine wo IV con Accession Number(s): [id number] cc: Demetrius Cote MD; Ana Moreira Report Number: [id number]: Total DLP = 625.47 mGy-cm CLINICAL HISTORY: hx of malignancy, back pain CT lumbar spine with out contrast Comparison: CT/ID/SR - CT LUMBAR SPINE POST VERT - 07/20/24 15:46 EDT Findings: Kyphoplasty cement again noted within T11, T12 and L2. There is minimal anterior superior endplate height loss at L3 which is new from prior. Complete disc space loss at L3-L4 with moderately severe central canal stenosis at this lev el, axial 209, series 5. There is also moderately severe central canal stenosis at L4-L5, axial 350, series 6. Diffuse fecal retent ion within the colon. Moderate atherosclerotic disease. Impression: There is a mild anterior superior endplate compression fracture L3 which is new since the comparison CT in July. Otherwise moderately severe degenerative and post kyphoplasty changes. This document has be en electronically signed by: Blue Carlin MD on 09/12/2024 10:14:43 Dictated By: Blue Carlin MD Signed By: <Electronically signed by Blue Carlin MD in OV> 09/12/24 1016 DD/ 1014 TD/TT: 09/12/24 1014 Steamtable Worker: XR sacroiliac joint min 3V Reviewed date:10/04/2024 08:13:31 PM Interpretation: Performing Lab: Notes/Report: [address] [address] XRay Report Signed Patient: Kayla Cheung MR#: [id number] : 1945 Acct:[id number] Age/Sex: 79 / F ADM Date: 09/12/24 Loc: HO.ED Attending Dr: Ordering Physician: Ana Moreira Date of Service: 09/12/24 Procedure(s): XR sacroiliac joint min 3V Accession Number(s): [id number] cc: Demetrius Cote MD; Ana Moreira CLINICAL HISTORY: pain 3 views sacroiliac joints Comparison: None Findings No acute fractures. Moderate degenerative changes of the sacroiliac joints and bilateral hips, rero-sneeipw-inzo-right. Diffuse fecal retention within the colon. IMPRESSION: No evidence of fracture or acute malalignment. This document has been electronically signed by: Blue Carlin MD on 09/12/2024 09:12:10 Dictated By: Blue Carlin MD Signed By: <Electronically signed by Blue Carlin MD in OV> 09/12/24 0912 DD/ 0912 TD/TT: 09/12/24 0912 Steamtable Worker: [address] [address] XRay Report Signed Patient: Kayla Cheung MR#: [id number] : 1945 Acct:[id number] Age/Sex: 79 / F ADM Date: 09/12/24 Loc: HO.ED Attending Dr: Ordering Physician: Ana Moreira Date of Service: 09/12/24 Procedure(s): XR sacroiliac joint min 3V Accession Number(s): [id number] cc: Demetrius Cote MD; Ana Moreira CLINICAL HISTORY: pain 3 views sacroiliac joints Comparison: None Findings No acute fractures. Moderate degenerativ e changes of the sacroiliac joints and bilateral hips, zasv-wnqrfox-oyjv-ri ght . Diffuse fecal retent ion within the colon. IMPRESSION: No evidence of fract ure or acute malalignment. This document has be en electronically signed by: Blue Carlin MD on 09/12/2024 09:12:10 Dictated By: Blue Carlin MD Signed By: <Electronically signed by Blue Carlin MD in OV> 09/12/24911 DD/ 1 TD/TT: 09/12/24911 Steamtable Worker: XR lumbar spine 2-3V Reviewed date:10/04/2024 08:13:31 PM Interpretation: Performing Lab: Notes/Report: [address] [address] XRay Report Signed Patient: Kayla Cheung MR#: [id number] : 1945 Acct:[id number] Age/Sex: 79 / F ADM Date: 09/12/24 Loc: .ED Attending Dr: Ordering Physician: Ana Moreira Date of Service: 09/12/24 Procedure(s): XR lumbar spine 2-3V Accession Number(s): [id number] cc: Demetrius Cote MD; Ana Moreira CLINICAL HISTORY: back pain 3 views lumbar spine Comparison: CT/ID/SR - CT LUMBAR SPINE POST VERT - 07/20/24 15:46 EDT Findings: Kyphoplasty cement noted within fractures at T11, T12 and L2. No definite acute compression fracture. Complete disc space loss at L3-L4. Facet hypertrophy within the lower lumbar spine noted. Diffuse fecal retention throughout the colon. IMPRESSION: Advanced chronic changes. No definite acute compression fracture. Multilevel kyphoplasty cement as detailed. Diffuse fecal retention throughout the colon. This document has been electronically signed by: Blue Carlin MD on 09/12/2024 09:09:48 Dictated By: Blue Carlin MD Signed By: <Electronically signed by Blue Carlin MD in OV> 09/12/24909 DD/ 8 TD/TT: 09/12/24908 Steamtable Worker: [address] [address] XRay Report Signed Patient: Kayla Cheung MR#: [id number] : 1945 Acct:[id number] Age/Sex: 79 / F ADM Date: 09/12/24 Loc: HO.ED Attending Dr: Ordering Physician: Ana Moreira Date of Service: 09/12/24 Procedure(s): XR lum bar spine 2-3V Accession Number(s): [id number] cc: Demetrius Cote MD; Ana Moreira CLINICAL HISTORY: ba ck pain 3 views lumbar spine Comparison: CT/ID/SR - CT LUMBAR SPINE POST VERT - 07/20/24 15:46 EDT Findings: Kyphoplasty cement noted within fractures at T11, T12 and L2. No definite acute compression fracture. Complete disc space loss at L3-L4. Facet hypertrophy within the lower lumbar spine noted. Diffuse fecal retent ion throughout the colon. IMPRESSION: Advanced chronic changes. No definite acute compression fracture. Multilevel kyphoplas ty cement as detailed. Diffuse fecal retent ion throughout the colon. This document has be en electronically signed by: Blue Carlin MD on 09/12/2024 09:09:48 Dictated By: Blue Carlin MD Signed By: <Electronically signed by Blue Carlin MD in OV> 09/12/24909 DD/ 8 TD/TT: 09/12/24908 Steamtable Worker: XR lumbar spine 1V Reviewed date:10/23/2024 01:45:21 PM Interpretation: Performing Lab: Notes/Report: [facility] [address] [place] [address] XRay Report Signed Patient: Kayla Cheung MR#: [id number] : 1945 Acct:[id number] Age/Sex: 79 / F ADM Date: 10/23/24 Loc: [facility] Attending Dr: Samir Wilson MD, PhD Ordering Physician: Samir Wilson MD, PhD Date of Service: 10/23/24 Procedure(s): XR lumbar spine 1V Accession Number(s): [id number] cc: Demetrius Cote MD; Samir Wilson MD, PhD EXAMINATION: XR LUMBOSACRAL SPINE CLINICAL INFORMATION: Z87.81 - Personal history of (healed) traumatic fracture COMPARISON: September 12, 2024 TECHNIQUE: AP and lateral views FINDINGS: Radiopaque material within the vertebral bodies of L2, T11 and T12 with similar old compression deformity volume loss. Grade 1 retrolisthesis L2-3. Levoconvex curvature of the lumbar spine apex at L2-3. Osteopenia versus osteoporosis. Electrode leads in the right heart chambers from a pacemaker no fully included in the uqhwm-zb-qhwo. There is stent in the ascending thoracic aorta no fully included in the kjhdd-hy-eiiu. There is residual oral contrast within the large intestine from prior imaging exam. Vascular calcifications, aorta. XR/XR lumbar spine 1V IMPRESSION: Grade 1 retrolisthesis L2-3 and levoconvex scoliosis, lumbar spine. Status post kyphoplasty/vertebroplasty procedure, T11, T12 and L2. Electronically signed by: Jean Kovacs MD 10/23/2024 09:48 AM EDT Dictated By: Jean Quesada MD Signed By: <Electronically signed by Jean Christina MD in OV> 10/23/24 0948 DD/ 0820 TD/TT: 10/23/24824 Steamtable Worker: [facility] [address] [place] [address] [place] [address] XRay Report Signed Patient: Kayla Cheung MR#: [id number] : 1945 Acct:[id number] Age/Sex: 79 / F ADM Date: 10/23/24 Loc: [facility] Attending Dr: Rhett Wilson MD, PhD Ordering Physician: Samir Wilson MD, PhD Date of Service: 10/23/24 Procedure(s): XR lum bar spine 1V Accession Number(s): [id number] cc: Demetrius Cote MD; Samir Wilson MD, PhD EXAMINATION: XR LUMBOSACRAL SPINE CLINICAL INFORMATION: Z87.81 - Personal history of (healed) traumatic fracture COMPARISON: September 12, 2024 TECHNIQUE: AP and lateral views FINDINGS: Radiopaque material within the vertebral bodies of L2, T11 and T12 with similar old compress ion deformity volume loss. Grade 1 retrolisthes is L2-3. Levoconvex curvature of the lumbar spine apex at L2-3. Osteopenia versus osteoporosis. Electrode leads in t he right heart chambers from a pacemaker no fully included in the fdptr-pq-tppg. There is stent in the ascending thoracic aorta no fully inclu ded in the hekty-yl-jtde. There is residual or al contrast within the large intestine from prior imaging exam. Vascular calcifications, aorta. XR/XR lumbar spine 1V IMPRESSION: Grade 1 retrolisthes is L2-3 and levoconvex scoliosis, lumbar spine. Status post kyphoplasty/vertebropla sty procedure, T11, T12 and L2. Electronically hamida d by: Jean Kovacs MD 10/23/2024 09:48 AM EDT Dictated By: Jean Russell MD Signed By: <Electronically signed by Jean Christina MD in OV> 10/23/2448 DD/ 0820 TD/TT: 10/23/24 08 Steamtable Worker: XR DEXA axial skeleton Reviewed date:02/12/2025 06:22:18 AM Interpretation: Performing Lab: Notes/Report: [facility] [address] [place], [place] [address] Mammography Report Signed Patient: Kayla Cheung MR#: [id number] : 1945 Acct:[id number] Age/Sex: 79 / F ADM Date: 11/26/24 Loc: HO.MAMMO Attending Dr: Demetrius Cote MD Ordering Physician: Demetrius Cote MD Results: Date of Service: 11/26/24 Follow Up: Procedure(s): XR DEXA axial skeleton Accession Number(s): [id number] cc: Demetrius Cote MD EXAMINATION: DXA BONE DENSITY AXIAL HISTORY: M81.0 AGE RELATED OSTEOPOROSIS TECHNIQUE: Colovore Dual energy absorptiometry (DEXA) of the lumbar spine, total left hip, and femoral neck was performed. COMPARISON: Comparison is made with the prior examination dated 10/08/2017. FINDINGS: The bone mineral density of the lumbar spine is 0.930 g/cm2, corresponding to a T-score of -2.0, and a Z-score of -0.2. This is indicative of osteopenia. This represents a BMD change of -4.0% compared to the prior exam. This is not statistically significant. The bone mineral density of the left total hip is 0.789 g/cm2, corresponding to a T-score of -1.7, and a Z-score of 0.1. This is indicative of osteopenia. This represents a BMD change of -0.4% compared to the prior exam. This is not statistically significant. The bone mineral density of the left femoral neck is 0.695 g/cm2, corresponding to a T-score of -2.5, and a Z-score of -0.4. This is indicative of osteoporosis. This represents a BMD change of -2.4% compared to the prior exam. MM/XR DEXA axial skeleton IMPRESSION: Based on bone mineral density, and according to World Health Organization (WHO) criteria, the diagnosis is consistent with osteoporosis. Statistically, 68% of repeat scans fall within 1 SD (+/- 0.010 g/cm2 for AP spine L1-L4) and 1 SD (+/- 0.012 g/cm2 for femur total) FRAX is a trademark of the [employer] [place] for Metabolic Bone Disease, a World Health Organization (WHO) Collaborating Center. Electronically signed by: Demetrius Hager MD 11/26/2024 10:48 AM EDT Dictated By: Demetrius Hager MD Signed By: <Electronically signed by Demetrius Hager MD in OV> 11/26/24 1048 DD/ 1015 TD/TT: 11/26/24 1036 Steamtable Worker: [facility] [address] [place], [place] [address] Mammography Report Signed Patient: Kayla Cheung MR#: [id number] : 1945 Acct:[id number] Age/Sex: 79 / F ADM Date: 11/26/24 Loc: HO.MAMMO Attending Dr: Demetrius Cote MD Ordering Physician: Demetrius Cote MD Results: Date of Service: 11/26/24 Follow Up: Procedure(s): XR DEX A axial skeleton Accession Number(s): [id number] cc: Demetrius Cote MD EXAMINATION: DXA BON E DENSITY AXIAL HISTORY: M81.0 AGE RELATED OSTEOPOROSIS TECHNIQUE: Colovore Dual energy absorptiometry (DEXA) of the lumbar spine, total left hip, and femoral neck was performed. COMPARISON: Comparis on is made with the prior examination dated 10/08/2017. FINDINGS: The bone mineral density of the lumbar spine is 0.930 g/cm2, corresponding to a T-score of -2.0, and a Z-score of -0.2. This is indicative of osteopenia. This represents a BM D change of -4.0% compared to the prior exam. This is not statistically significant. The bone mineral density of the left total hip is 0.789 g/cm2, corresponding to a T-score of -1.7, and a Z-score of 0.1. This is indicative of osteopenia. This represents a BM D change of -0.4% compared to the prior exam. This is not statistically significant. The bone mineral density of the left femoral neck is 0.695 g/cm2, corresponding to a T-score of -2.5, and a Z-score of -0.4. This is indicative of osteoporosis. This represents a BM D change of -2.4% compared to the prior exam. ___ MM/XR DEXA axial skeleton IMPRESSION: Based on bone minera l density, and according to World Health Organization (WHO) criteria, the diagnosis is consistent with osteoporosis. Statistically, 68% o f repeat scans fall within 1 SD (+/- 0.010 g/cm2 for AP spine L1-L4) and 1 SD (+/- 0.012 g/cm2 for femur total) FRAX is a trademark of the [employer] [place] for Metabolic Bone Disease, a World Health Organization (WHO) Collaborating Center. Electronically hamida d by: Demetrius Hager MD 11/26/2024 10:48 AM EDT RP Dictated By: Demetrius Hager MD Signed By: <Electronically signed by Demetrius Hager MD in OV> 11/26/24 1048 DD/ 1015 TD/TT: 11/26/24 1036 Steamtable Worker: XR cervical spine 3V Reviewed date:02/12/2025 06:22:18 AM Interpretation: Performing Lab: Notes/Report: [address] [address] XRay Report Signed Patient: Kayla Cheung MR#: [id number] : 1945 Acct:[id number] Age/Sex: 79 / F ADM Date: 02/10/25 Loc: HO.XRAY Attending Dr: Demetrius Cote MD Ordering Physician: Demetrius Cote MD Date of Service: 02/10/25 Procedure(s): XR cervical spine 3V Accession Number(s): [id number] cc: Demetrius Cote MD Reason for Exam: PAIN EXAMINATION: XR CERVICAL SPINE CLINICAL INFORMATION: PAIN COMPARISON: None available. TECHNIQUE: 3 views of the cervical spine were obtained. FINDINGS: C2-3 through C4-5 demonstrates mild disc space narrowing. C4-5 demonstrates facet joint space narrowing and sclerosis. C5-6 demonstrated moderate loss of disc height with anterior osteophytes. C6-7: There is facet joint space narrowing and sclerosis. XR/XR cervical spine 3V IMPRESSION: Degenerative changes are most advanced at C5-6. Electronically signed by: Jersey Benavides MD 02/10/2025 10:42 AM EDT RP Dictated By: Jersey Benavides MD Signed By: <Electronically signed by Jersey Benavides MD in OV> 02/10/25 1042 DD/ 1019 TD/TT: 02/10/25 1033 Steamtable Worker: [place] [id number] XRay Report Signed Patient: Kayla Cheung MR#: [id number] : 1945 Acct:[id number] Age/Sex: 79 / F ADM Date: 02/10/25 Loc: PHILLIP Attending Dr: Demetrius Cote MD Ordering Physician: Demetrius Cote MD Date of Service: 02/10/25 Procedure(s): XR cervical spine 3V Accession Number(s): [id number] cc: Demetrius Cote MD Reason for Exam: PAIN EXAMINATION: XR CERVICAL SPINE CLINICAL INFORMATION: PAIN COMPARISON: None available. TECHNIQUE: 3 views of the cervi samy spine were obtained. FINDINGS: C2-3 through C4-5 demonstrates mild disc space narrowing. C4-5 demonstrates fa cet joint space narrowing and sclerosis. C5-6 demonstrated moderate loss of disc height with anterior osteophytes. C6-7: There is facet joint space narrowing and sclerosis. XR/XR cervical spine 3V IMPRESSION: Degenerative changes are most advanced at C5-6. Electronically hamida d by: Jersey Benavides MD 02/10/2025 10:42 AM EDT RP Dictated By: Jersey Benavides MD Signed By: <Electronically signed by Jersey Benavides MD in OV> 02/10/25 1042 DD/ 1019 TD/TT: 02/10/25 1033 Steamtable Worker: Reason For Referral Reason mass head of pancrea s pancreatic atrophy new dilation of pancreatic duct evaluate and treat Diagnosis 1 Pancreatic mass (K86 .9) Referral Organization Demetrius Cote III, MD Referring Provider First Name Demetrius Referring Provider Last Name Kera Referring Provider Speciality Internal M edicine Referred Organization [facility] Address [address] [place] [address], [place], [place],[id number] Referred Provider Specialty Gastroentero logy General Notes Magdalena Greenwood CMA 04/27 04:21:07 PM >ref/demo/progress notes/labs/x rays faxed to Dr Oseguera office at [phone] per Candido at the office ., Shana Archuleta 05/01/2024 02:51:36 PM > Spoke with Cayla at [facility], she stated they did receive the [...] they needed this faxed to them at [phone]. This was done today . ATTN: Timo [...] M edicine Referred Provider [facility] Referred Provider Specialty Unknown General Notes [...] Last Name Kera Referring Provider Speciality Internal edicine Referred Provider [facility] er, Pain Management Referred Provider Specialty Pain Medicin e General Notes Timo Magdalenajadyn SAWYER 09/09 01:17:42 PM > referral ,progress note, x ray reports faxed to [place] [facility] . I called they stated they will review the referral and call patient to set up appt, Shana Archuleta 09/23/2024 11:29:43 AM > Spoke with Tanvir he stated patient has not been scheduled at this time. Also stated that he does not see the referral and asked for it to be refaxed. Referral faxed Referral Priority Routine Referral Appointment Date 10/05/2024 Reason Urgent Request Chantel luate and Treat endplate compression fracture L3 Diagnosis 1 Compression fracture of L3 vertebra with delayed healing, subsequent encounter (S32.030G) Diagnosis 2 Non-traumatic compre ssion fracture of L2 lumbar vertebra with routine healing, subsequent encounter (M48.56XD) Referral Organization Demetrius Cote III, MD Referring Provider First Name Demetrius Referring Provider Last Name Kera Referring Provider Speciality Internal edcommunity health Referred Provider SAMIR WILSON Referred Provider Specialty Neurosurgery General Notes Shana Archuleta 09/23/2024 11:42:23 AM > referral faxed with progress notes, xr and recent CT, Shana Archuleta 09/23/2024 01:32:39 PM > Referral was received by office it is currenting being triaged by the nurse., Shana Archuleta 09/29/2024 11:05:55 AM > Spoke with Ann Marie at Dr. Wilson office. Stated the PA is reviewing it and the patient should be receiving a call today to schedule an appointment, Shana Archuleta 09/29/2024 03:54:11 PM > patient was contacted by Dr. Wilson office and scheduled an appointment for 10/23/24 @ 9am Referral Priority Urgent Referral Appointment Date 10/23/2024 Medications Medication SIG (Take, Route, Frequency, Duration) Notes Start Date End Date Status dexAMETHasone 2 MG 1 tablet Orally twic e a day 06/23/2024 Active FeroSul 325 (65 Fe) MG TAKE 1 TABLET BY MOUTH EVERY DAY Active levoFLOXacin 500 MG 1 tablet Orally Once a day 09/10/2023 Active Melatonin 1 MG 1 tablet at bedtime as needed Orally Once a day Active Levothyroxine Sodium 100 MCG TAKE 1 TABLET DAILY Active Aspirin 81 81 MG 1 tablet Orally Once a day Active Simvastatin 40 MG TAKE 1 TABLET EVERY EVENING Active Eliquis 5 MG 1 tablet Orally Twic e a day Active Alendronate Sodium 70 MG TAKE 1 TABLET B Y MOUTH 1 TIME A WEEK 30 MINUTES BEFORE FIRST FOOD OR BEVERAGE OR MEDICINE OF THE DAY WITH WATER Active D3-1000 25 MCG (1000 UT) 1 capsule Orall y Once a day Active traZODone HCl 150 MG TAKE 1 TABLET BY MO UTH EVERY NIGHT AT BEDTIME Active Furosemide 20 MG TAKE 1 TABLET BY JOSÉ TH EVERY OTHER DAY Oral Active Metoprolol Tartrate 25 MG TAKE 1 TABLET 2 TIMES DAILYWITH FOOD Active Amiodarone HCl 200 MG TAKE 2 TABLETS BY MOUTH TWICE DAILY FOR 12 DAYS THEN TAKE 1 TABLET BY MOUTH DAILY Oral Active Calcium Carbonate 1500 (600 Ca) MG [...] Vaccine IM Intramuscular 03/10/2021 Administered covid vaccine COVID PFIZER Unknown 06/07/2020 Administered PCV20 Unknown 02/11/2023 Administered COVID PFIZER Unknown 03/09/2021 Administered COVID PFIZER Unknown 06/28/2020 Administered Influenza-iiv4 p-free high dose Unknown 02/25/2021 Administered Social History Tobacco Use: Social History Observation [...] Problem Status W/U Status Risk Notes Problem 0998833 Former smoker (Z87.891) Active confirmed She is highly motivated not to smoke. We have discussed strategies for maintenance of abstinence in times of stress and illness. Problem 861316266 Overweight (BMI 25.0-29.9) (E66.3) Active confirmed Her body mass index is 26. We agreed to stabilize her weight at this level until the acute illness has resolved. The she will receive dietary counseling and we will try to reduce hher weight at a rate of one half of a pound per week. Problem 126270167 Obesity (E66.9) Active confirmed She has continue her efforts at weight loss and gain prevention. We reviewed her weight loss strategy today. 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 She has opted out of surgery. She is feeling very tired and nauseous and has pain with swallowing from the radiation. Be followed carefully. She is also being followed by radiation oncology and medical oncology at [facility]. Problem Malignant neoplasm of female breast (933660039) Malignant neoplasm of unspecified site of right female breast (C50.911) Active confirmed Is no sign of recurrence or relapse her new primary today. Problem Hypothyroidism (21534870) Hypothyroidism, unspecified (E03.9) Active confirmed She has been compliant with her medication. She appears to be euthyroid today. No change in her regimen was made. Problem 70838351 Other chronic pain (G89.29) Active confirmed There is virtually no disc space between L3 and L4 and she has appointment with a neurosurgeon in a couple of weeks. She was continued on her current analgesic regimen.She has had a compression fracture of the thoracic spine as well as the lumbar spine as well. Problem 438529997 Calculus of gallbladder without cholecystitis without obstruction (K80.20) Active confirmed Her gallstones were asymptomatic and now is no sign of cholecystitis today. She will be observed cautiously. Problem Sicca syndrome (90476927) Sicca syndrome, unspecified (M35.00) Active confirmed The oral drynes s remains unchanged. She has been compliant with frequent visits to her dentist. Problem Atrial fibrillation (28788681) Atrial fibrillation, unspecified (I48.91) Active confirmed Her heart rate is well controlled today on no change in her regimen was made. Problem 650829581 Anticoagulated (Z79.01) Active confirmed . There is no contraindication to this patient remaining on anticoagulation during the procedure. I have spoken to the surgical instrument maker at the ophthalmologists office. They do not require the anticoagulation to be held. Problem 070243045 Hyperlipidemia type II (E78.0) Active confirmed Her lipids h ave been well controlled. Her fasting lipid profile will be ordered periodically. No change in her regimen was needed today. Problem 19418087 Atrial fibrillation (I48.91) Active confirmed She has been well controlled lately. She has been compliant with all of her medications. She was in a regular rhythm today Problem 622883976 Hodgkins disease (C81.90) Active confirmed There is no adenopathy. She continues in a durable remission. Problem 6999294 Psoriasis (L40.9) Active confirmed Her psoriasis i s very mild and does not require treatment at this time. Problem 903942116 Nonrheumatic aortic valve stenosis (I35.0) Active confirmed Her exercise tolerance is improved and she has no long-term side effects from repair of the aortic valve. He is under the care of the transaction manager and compliant with her therapies. Problem 35122733 Hypothyroid (E03.9) Active confirmed Her TSH has bee n slightly elevated. If it remains this way on repeat her dose will be adjusted. Problem 309817687 Wedge compression fracture of T11 vertebra (S22.080A) Active confirmed Her pain has become minimally but it can be reproduced with percussion. No change in her regimen is needed. Problem 621957072 Marginal zone lymphoma (C85.80) Active confirmed There was no enlargement of the salivary gland or adenopathy or splenomegaly. She continues in a durable remission Problem 07810992 Sjoegren syndrome (M35.00) Active confirmed This problem is well controlled with oral medication. 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 No change in her regimen was needed. 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 The left breast is unremarkable. Problem Coagulopathy (05376381) Coagulopathy (D68.9) Active confirmed She has a history of pulmonary embolism and atrial fibrillation and is chronically anticoagulated. She has had no episodes of bleeding. She has had no further episodes of arterial clotting or venous thromboembolism. 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 A small hypodense lesion is seen measuring 1.8 x 1.1 cm which is unchanged. It will be followed radiographically at this time. Problem Neck pain (11035286) Neck pain (M54.2) Active confirmed During the radiation He currently painful area of her neck rested directly upon the edge of the radiation block. The radiation was completed late last week and the pain began yesterday. Review of the images done today shows severe disc disease between C5 and C6 but no obvious compression fracture. The bones are demineralized. Problem Pancreatic mass (405027363) Pancreatic mass (K86.9) Active confirmed The CA-19-9 [...] on the pancreas. Problem Pure hypercholesterole tha (563705931) Hyperlipidemia type II (E78.01) Active confirmed Her most recent fasting lipid profile shows good control of her lipids. No change in her regimen as needed. Problem 325398494 Osteopenia after menopause (M81.0) Active confirmed She will have periodic bone densities. I recommended Os-Samy 500 mg twice a day. The thousand units of vitamin D daily. She will be evaluated periodically for alendronate. Problem hypercholesterole tha (disorder) (85859744) Hypercholestere tha (E78.00) Active confirmed Current fasting lipid profile shows good control of her lipids. Problem 71846294 Chronic congestive heart failure, unspecified heart failure type (I50.9) Active confirmed Her CHF is now well compensated and she is compliant with her medications. Cardiology follow-up has been arranged. Problem Compression fracture of L3 vertebra with delayed healing, subsequent encounter (S32.030G) Active confirmed The degree of compression is minimal. There is loss of disc space between L3 and L4 which is likely causing the pain. She has an appointment with pain management and neurosurgery. Problem 1313749121378 S/P TAVR (transcatheter aortic valve replacement) (Z95.2) Active confirmed Her valve continues to work appropriately. No murmurs heard. 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 She is going to arrange for resection with the surgeon next week.Currently undergoing staging. Problem 64293938343336751 Compression fracture of L2 vertebra with routine healing, subsequent encounter (S32.020D) Active confirmed On July 20, 2024 at [facility] she underwent kyphoplasty for an L2 compression fracture. Over the last 2 weeks she has developed severe pain in her lumbar spine a radiates down her right leg into her knee. I have Given her tramadol 50 mg every 8 hours with a followup visit in 48 hours.I have referred her to pain management. Further imaging and neurosurgery may be necessary. Problem 95994858665107792 Non-traumatic compression fracture of L2 lumbar vertebra with routine healing, subsequent encounter (M48.56XD) Active confirmed She continues t o have 8/10 pain. The 100 mg dose of tramadol is slightly better than the 50 mg dose.She did not want a stronger medication such as codeine for oxycodone. We're waiting for pain management, to give her an appointment. Vital Signs Heart Rate 88 /min 02/26/2025 Temperature 98.6 degrees Fahrenheit 02/26/2025 Blood pressure diastolic 71 mm Hg 02/26/2025 Height 63 in 02/26/2025 Blood pressure systolic 139 mm Hg 02/26/2025 Weight 134 lbs 02/26/2025 BMI 23.73 kg/m2 02/26/2025 Encounters Encounter Location Date Provider Diagnosis Demetrius Cote III, MD [address] [place] [address] [place] [address] 02/26/2025 Demetrius Cote Neck pain M54.2 Demetrius Cote III, MD [address] [place] [address] [place] [address] 03/30/2024 Demetrius Browningrne Hodgkins disease C81 .90 ; Chronic congestive [...] and Anticoagulated Z79.01 Demetrius Cote III, MD [address] [place] [address] [place] [address] 04/24/2024 Demetrius Browningrne Hodgkins disease C81 .90 ; Pancreatic mass K86.9 ; Former smoker Z87.891 ; Obesity E66.9 ; 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 ; Atrial fibrillation I48.91 ; Hypothyroid E03.9 ; Wedge compression fracture of T11 vertebra S22.080A ; 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 ; Sjoegren syndrome M35.00 and 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 Demetrius Cote III, MD [address] [place] [address] [place] [address] 09/04/2024 Demetrius Lynchne Hodgkins disease C81 .90 ; Compression fracture [...] Former smoker Z87.891 Demetrius Cote III, MD [address] [place] [address] [place] [address] 09/07/2024 Demetrius Cote Compression fracture of L2 [...] Former smoker Z87.891 Demetrius Cote III, MD [address] [place] [address] [place] [address] 09/09/2024 Demetrius Cote Non-traumatic compression fracture of L2 lumbar vertebra with routine healing, subsequent encounter M48.56XD ; Former smoker Z87.891 ; Pancreatic mass K86.9 ; Obesity E66.9 ; 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 ; Atrial fibrillation I48.91 ; Wedge compression fracture of T11 vertebra S22.080A ; Hypothyroid E03.9 and 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 Demetrius Cote III, MD [address] [place] [address] [place] [address] 09/16/2024 Demetrius Cote Compression fracture of L2 vertebra, initial encounter S32.020A ; 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 ; Former smoker Z87.891 ; Wedge compression fracture of T11 vertebra S22.080A ; Hodgkins disease C81.90 ; Atrial fibrillation I48.91 ; Hypothyroid E03.9 ; Hyperlipidemia type II E78.0 ; 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 ; Sjoegren syndrome M35.00 ; Coagulopathy D68.9 ; Nonrheumatic aortic valve stenosis I35.0 ; Chronic congestive heart failure, unspecified heart failure type I50.9 ; Overweight (BMI 25.0-29.9) E66.3 and 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 Demetrius oCte III, MD [address] [place] [address] [place] [address] 09/22/2024 Demetrius Cote Compression fracture of L3 vertebra with delayed healing, subsequent encounter S32.030G ; 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 ; Former smoker Z87.891 ; Wedge compression fracture of T11 vertebra S22.080A ; 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 ; Sjoegren syndrome M35.00 ; Atrial fibrillation I48.91 ; Hyperlipidemia type II E78.0 ; Pancreatic mass K86.9 and Osteopenia after menopause M81.0 Demetrius Cote III, MD [address] [place] [address] [place] [address] 09/29/2024 Demetrius Cote Former smoker Z87.89 1 [...] unspecified site of right female breast C50.911 Demetrius Cote III, MD [address] [place] [address] [place] [address] 10/09/2024 Demetrius Cote 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 ; Former smoker Z87.891 ; Wedge compression fracture of T11 vertebra S22.080A ; Sjoegren syndrome M35.00 ; 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 ; Atrial fibrillation I48.91 ; Hypothyroid E03.9 ; Pancreatic mass K86.9 ; Anticoagulated Z79.01 ; Chronic congestive heart failure, unspecified heart failure type I50.9 ; Overweight (BMI 25.0-29.9) E66.3 ; Other chronic pain G89.29 and 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 Demetrius Cote III, MD [address] [place] [address] [place] [address] 11/26/2024 Demetrius Cote 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 [...] encounter S32.020A and Overweight (BMI 25.0-29.9) E66.3 Demetrius Cote III, MD [address] [place] [address] [place] [address] 01/07/2025 Demetrius Cote 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 [...] heart failure type I50.9 and Anticoagulated Z79.01 Demetrius Cote III, MD [address] [place] [address] [place] [address] 02/05/2025 Demetrius Cote Malignant neoplasm o f [...] after menopause M81.0 and Hypothyroidism, unspecified E03.9 Demetrius Cote III, MD [address] [place] [address] [place] [phone] 02/10/2025 Demetrius Cote Neck pain M54.2 ; [...] aortic valve stenosis I35.0 and Anticoagulated Z79.01 Demetrius Cote III, MD [address] [place] [address] [place] [address] 02/16/2025 Demetrius Cote III, MD [address] [place] [address] [place] [address] 04/27/2024 Demetrius Cote III, MD [address] [place] [address] [place] [address] 05/01/2024 Demetrius Cote III, MD [address] [place] [address] [place] [address] 06/08/2024 Demetrius Cote III, MD [address] [place] [address] [place] [address] 06/23/2024 Demetrius Cote III, MD [address] [place] [address] [place] [address] 06/23/2024 Demetrius Cote III, MD [address] [place] [address] [place] [address] 06/25/2024 Demetrius Cote III, MD [address] [place] [address] [place] [address] 07/01/2024 Demetrius Cote Wedge compression fracture of T11 vertebra S22.080A ; Compression fracture of L2 vertebra, initial encounter S32.020A and History of osteopenia Z87.39 Demetrius Cote III, MD [address] [place] [address] [place] [address] 07/02/2024 Demetrius Cote III, MD [address] [place] [address] [place] [address] 07/03/2024 Demetrius Cote III, MD [address] [place] [address] [place] [address] 07/07/2024 Demetrius Cote Compression fracture of L2 vertebra, initial encounter S32.020A Demetrius Cote III, MD [address] [place] [address] [place] [address] 07/21/2024 Demetrius Cote III, MD [address] [place] [address] [place] [address] 09/04/2024 Demetrius Cote III, MD [address] [place] [address] [place] [address] 09/11/2024 Demetrius Cote III, MD [address] [place] [address] [place] [address] 10/01/2024 Demetrius Cote III, MD [address] [place] [address] [place] [address] 10/19/2024 Demetrius Cote III, MD [address] [place] [address] [place] [address] 10/29/2024 Demetrius Cote III, MD [address] [place] [address] [place] [address] 11/30/2024 Demetrius Cote III, MD [address] [place] [address] [place] [address] 02/09/2025 Demetrius Cote Assessments Encounter Date Diagnosis (ICD Code) Assessment Notes T reatment Notes Treatment Clinical Notes 02/26/2025 Neck pain [...] obvious compression fracture. The bones are demineralized. 03/30/2024 Hodgkins disease (ICD-10 - C81.90) There [...] in a durable remission. 04/24/2024 Pancreatic mass (ICD-10 - K86.9) The CA-19-9 [...] - S32.020D) On July 20, 2024 at [facility] she underwent kyphoplasty or and L2 compression [...] - S32.020D) On July 20, 2024 at [facility] she underwent kyphoplasty for an L2 [...] neurosurgery may be necessary. 09/09/2024 Former smoker (ICD-10 - Z87.891) She is [...] pain management, to give her an appointment. 09/16/2024 Invasive ductal carcinoma of right breast (ICD-10 - C50.911) The mastectomy site is free of any sign of relapse. The left breast is unremarkable. 09/16/2024 Compression fracture of L2 vertebra, initial encounter (ICD-10 - S32.020A) She is being referred to endocrinology and interventional radiology for vertebroplasty all 09/22/2024 Invasive ductal carcinoma of right breast (ICD-10 - C50.911) The mastectomy site is free of any sign of relapse. The left breast is unremarkable. 09/22/2024 Compression fracture of L3 vertebra with delayed healing, subsequent encounter (ICD-10 - S32.030G) The degree of compression is minimal. There is loss of disc space between L3 and L4 which is likely causing the pain. She has an appointment with pain management and neurosurgery. 09/29/2024 Former smoker (ICD-10 - Z87.891) She is highly motivated not to smoke. We have discussed strategies for maintenance of abstinence in times of stress and illness. 09/29/2024 Wedge compression fracture of T11 vertebra (ICD-10 - S22.080A) Her pain has become minimally but it can be reproduced with percussion. No change in her regimen is needed. 10/09/2024 Former smoker (ICD-10 - Z87.891) She is highly motivated not to smoke. We have discussed strategies for maintenance of abstinence in times of stress and illness. 10/09/2024 Invasive ductal carcinoma of right breast (ICD-10 - C50.911) The mastectomy site is free of any sign of relapse. The left breast is unremarkable. 11/26/2024 Invasive ductal carcinoma of right breast (ICD-10 - C50.911) The mastectomy site is free of any sign of relapse. The left breast is unremarkable. 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 She is going to arrange for resection with the surgeon next week.Currently undergoing staging. 02/05/2025 Former smoker (ICD-10 - Z87.891) She is highly motivated not to smoke. We have discussed strategies for maintenance of abstinence in times of stress and illness. 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 She has opted out of surgery. She is feeling very tired and nauseous and has pain with swallowing from the radiation. Be followed carefully. She is also being followed by radiation oncology and medical oncology at [facility]. 02/10/2025 Neck pain (ICD-10 - M54.2) During [...] routine healing, subsequent encounter (ICD-10 - S32.020D) 07/01/2024 Wedge compression fracture of T11 vertebra (ICD-10 - S22.080A) 07/07/2024 Compression fracture of L2 vertebra, initial encounter (ICD-10 - S32.020A) 03/30/2024 Marginal zone lymphoma (ICD-10 - C85.80) There was no enlargement of the salivary gland or adenopathy or splenomegaly. She continues in a durable remission 04/24/2024 Former smoker (ICD-10 - Z87.891) She is highly motivated not to smoke. We have discussed strategies for maintenance of abstinence in times of stress and illness. 09/04/2024 Invasive ductal carcinoma of right breast (ICD-10 - C50.911) The mastectomy site is free of any sign of relapse. The left breast is unremarkable. 09/07/2024 Malignant neoplasm of unspecified site of right female breast (ICD-10 - C50.911) Is no sign of recurrence or relapse her new primary today. 09/09/2024 Pancreatic mass (ICD-10 - K86.9) The CA-19-9 [...] need to have surgery on the pancreas. 09/16/2024 Former smoker (ICD-10 - Z87.891) She is highly motivated not to smoke. We have discussed strategies for maintenance of abstinence in times of stress and illness. 09/22/2024 Former smoker (ICD-10 - Z87.891) She is highly motivated not to smoke. We have discussed strategies for maintenance of abstinence in times of stress and illness. 09/29/2024 Overweight (BMI 25.0-29.9) (ICD-10 - E66.3) Her body mass index is 26. We agreed to stabilize her weight at this level until the acute illness has resolved. The she will receive dietary counseling and we will try to reduce hher weight at a rate of one half of a pound per week. 10/09/2024 Wedge compression fracture of T11 vertebra (ICD-10 - S22.080A) Her pain has become minimally but it can be reproduced with percussion. No change in her regimen is needed. 11/26/2024 Former smoker (ICD-10 - Z87.891) She is highly motivated not to smoke. We have discussed strategies for maintenance of abstinence in times of stress and illness. 01/07/2025 Wedge compression fracture of T11 vertebra (ICD-10 - S22.080A) Her pain has become minimally but it can be reproduced with percussion. No change in her regimen is needed. 02/05/2025 Overweight (BMI 25.0-29.9) (ICD-10 - E66.3) Her body mass index is 26. We agreed to stabilize her weight at this level until the acute illness has resolved. The she will receive dietary counseling and we will try to reduce hher weight at a rate of one half of a pound per week. 02/10/2025 Wedge compression fracture of T11 vertebra (ICD-10 - S22.080A) Her pain has become minimally but it can be reproduced with percussion. No change in her regimen is needed. 07/01/2024 Compression fracture of L2 vertebra, initial encounter (ICD-10 - S32.020A) 03/30/2024 Pancreatic mass (ICD-10 - K86.9) The abdominal examination was unremarkable. [...] We reviewed her weight loss strategy today. 09/16/2024 Wedge compression fracture of T11 vertebra (ICD-10 - S22.080A) Her pain has become minimally but it can be reproduced with percussion. No change in her regimen is needed. 09/22/2024 Wedge compression fracture of T11 vertebra (ICD-10 - S22.080A) Her pain has become minimally but it can be reproduced with percussion. No change in her regimen is needed. 09/29/2024 Hodgkins disease (ICD-10 - C81.90) There is no adenopathy. She continues in a durable remission. 10/09/2024 Sjoegren syndrome (ICD-10 - M35.00) This problem is well controlled with oral medication. 11/26/2024 Wedge compression fracture of T11 vertebra (ICD-10 - S22.080A) Her pain has become minimally but it can be reproduced with percussion. No change in her regimen is needed. 01/07/2025 Compression fracture of L2 vertebra with routine healing, subsequent encounter (ICD-10 - S32.020D) On July 20, 2024 at [facility] she underwent kyphoplasty for an L2 compression fracture. Over the last 2 weeks she has developed severe pain in her lumbar spine a radiates down her right leg into her knee. I have Given her tramadol 50 mg every 8 hours with a followup visit in 48 hours.I have referred her to pain management. Further imaging and neurosurgery may be necessary. 02/05/2025 Compression fracture of L3 vertebra with delayed healing, subsequent encounter (ICD-10 - S32.030G) The degree of compression is minimal. There is loss of disc space between L3 and L4 which is likely causing the pain. She has an appointment with pain management and neurosurgery. 02/10/2025 Former smoker (ICD-10 - Z87.891) She is highly motivated not to smoke. We have discussed strategies for maintenance of abstinence in times of stress and illness. 07/01/2024 History of osteopenia (ICD-10 - Z87.39) 03/30/2024 Former smoker (ICD-10 - Z87.891) She is highly motivated not to smoke. We have discussed strategies for maintenance of abstinence in times of stress and illness. 04/24/2024 Marginal zone lymphoma (ICD-10 - C85.80) There [...] her regimen was made. 09/09/2024 Marginal zone lymphoma (ICD-10 - C85.80) There was no enlargement of the salivary gland or adenopathy or splenomegaly. She continues in a durable remission 09/16/2024 Hodgkins disease (ICD-10 - C81.90) There is no adenopathy. She continues in a durable remission. 09/22/2024 Marginal zone lymphoma (ICD-10 - C85.80) There was no enlargement of the salivary gland or adenopathy or splenomegaly. She continues in a durable remission 09/29/2024 Invasive ductal carcinoma of right breast (ICD-10 - C50.911) The mastectomy site is free of any sign of relapse. The left breast is unremarkable. 10/09/2024 Marginal zone lymphoma (ICD-10 - C85.80) There was no enlargement of the salivary gland or adenopathy or splenomegaly. She continues in a durable remission 11/26/2024 Marginal zone lymphoma (ICD-10 - C85.80) There was no enlargement of the salivary gland or adenopathy or splenomegaly. She continues in a durable remission 01/07/2025 Overweight (BMI 25.0-29.9) (ICD-10 - E66.3) Her body mass index is 26. We agreed to stabilize her weight at this level until the acute illness has resolved. The she will receive dietary counseling and we will try to reduce hher weight at a rate of one half of a pound per week. 02/05/2025 Invasive ductal carcinoma of right breast (ICD-10 - C50.911) The mastectomy site is free of any sign of relapse. The left breast is unremarkable. 02/10/2025 Pancreatic mass (ICD-10 - K86.9) The [...] need to have surgery on the pancreas. 03/30/2024 Psoriasis (ICD-10 - L40.9) Her psoriasis [...] She was in a regular rhythm today 09/16/2024 Atrial fibrillation (ICD-10 - I48.91) She has been well controlled lately. She has been compliant with all of her medications. She was in a regular rhythm today 09/22/2024 Sjoegren syndrome (ICD-10 - M35.00) This problem is well controlled with oral medication. 09/29/2024 Pancreatic mass (ICD-10 - K86.9) The [...] need to have surgery on the pancreas. 10/09/2024 Atrial fibrillation (ICD-10 - I48.91) She has been well controlled lately. She has been compliant with all of her medications. She was in a regular rhythm today 11/26/2024 Sjoegren syndrome (ICD-10 - M35.00) This problem is well controlled with oral medication. 01/07/2025 Invasive ductal carcinoma of right breast (ICD-10 - C50.911) The mastectomy site is free of any sign of relapse. The left breast is unremarkable. 02/05/2025 Wedge compression fracture of T11 vertebra (ICD-10 - S22.080A) Her pain has become minimally but it can be reproduced with percussion. No change in her regimen is needed. 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 She continues in a durable remission 03/30/2024 Osteopenia after menopause (ICD-10 - M81.0) She will have periodic bone densities. I recommended Os-Samy 500 mg twice a day. The thousand units of vitamin D daily. She will be evaluated periodically for alendronate. 04/24/2024 Hypothyroid (ICD-10 - E03.9) Her TSH has been slightly elevated. If it remains this way on repeat her dose will be adjusted. 09/04/2024 Right knee DJD (ICD-10 - M17.9) The pain in her right knee is mild to moderate and unchanged. No change in her regimen was needed. 09/07/2024 Anticoagulated (ICD-10 - Z79.01) . There is no contraindication to this patient remaining on anticoagulation during the procedure. I have spoken to the surgical instrument maker at the ophthalmologists office. They do not require the anticoagulation to be held. 09/09/2024 Wedge compression fracture of T11 vertebra (ICD-10 - S22.080A) Her pain has become minimally but it can be reproduced with percussion. No change in her regimen is needed. 09/16/2024 Hypothyroid (ICD-10 - E03.9) Her TSH has been slightly elevated. If it remains this way on repeat her dose will be adjusted. 09/22/2024 Atrial fibrillation (ICD-10 - I48.91) She has been well controlled lately. She has been compliant with all of her medications. She was in a regular rhythm today 09/29/2024 Hypothyroid (ICD-10 - E03.9) Her TSH has been slightly elevated. If it remains this way on repeat her dose will be adjusted. 10/09/2024 Hypothyroid (ICD-10 - E03.9) Her TSH has been slightly elevated. If it remains this way on repeat her dose will be adjusted. 11/26/2024 Right knee DJD (ICD-10 - M17.9) The pain in her right knee is mild to moderate and unchanged. No change in her regimen was needed. 01/07/2025 Hodgkins disease (ICD-10 - C81.90) There is no adenopathy. She continues in a durable remission. 02/05/2025 Hodgkins disease (ICD-10 - C81.90) There is no adenopathy. She continues in a durable remission. 02/10/2025 Hodgkins disease (ICD-10 - C81.90) There is no adenopathy. She continues in a durable remission. 03/30/2024 Sicca syndrome, unspecified (ICD-10 - M35.00) The oral dryness remains unchanged. She has been compliant with frequent visits to her dentist. 04/24/2024 Wedge compression fracture of T11 vertebra (ICD-10 - S22.080A) Her pain has become minimally but it can be reproduced with percussion. No change in her regimen is needed. 09/04/2024 Marginal zone lymphoma (ICD-10 - C85.80) There was no enlargement of the salivary gland or adenopathy or splenomegaly. She continues in a durable remission 09/07/2024 Pancreatic mass (ICD-10 - K86.9) The [...] on repeat her dose will be adjusted. 09/16/2024 Hyperlipidemia type II (ICD-10 - E78.0) Her lipids have been well controlled. Her fasting lipid profile will be ordered periodically. No change in her regimen was needed today. 09/22/2024 Hyperlipidemia type II (ICD-10 - E78.0) Her lipids have been well controlled. Her fasting lipid profile will be ordered periodically. No change in her regimen was needed today. 09/29/2024 Atrial fibrillation (ICD-10 - I48.91) She has been well controlled lately. She has been compliant with all of her medications. She was in a regular rhythm today 10/09/2024 Pancreatic mass (ICD-10 - K86.9) The CA-19-9 [...] to have surgery on the pancreas. 11/26/2024 Atrial fibrillation (ICD-10 - I48.91) She has been well controlled lately. She has been compliant with all of her medications. She was in a regular rhythm today 01/07/2025 Atrial fibrillation (ICD-10 - I48.91) She has been well controlled lately. She has been compliant with all of her medications. She was in a regular rhythm today 02/05/2025 Marginal zone lymphoma (ICD-10 - C85.80) There was no enlargement of the salivary gland or adenopathy or splenomegaly. She continues in a durable remission 02/10/2025 Invasive ductal carcinoma of right breast (ICD-10 - C50.911) The mastectomy site is free of any sign of relapse. The left breast is unremarkable. 03/30/2024 Hypothyroidism, unspecified (ICD-10 - E03.9) She [...] of relapse. The left breast is unremarkable. 09/16/2024 Right knee DJD (ICD-10 - M17.9) The pain in her right knee is mild to moderate and unchanged. No change in her regimen was needed. 09/22/2024 Pancreatic mass (ICD-10 - K86.9) The CA-19-9 [...] to have surgery on the pancreas. 09/29/2024 Right knee DJD (ICD-10 - M17.9) The pain in her right knee is mild to moderate and unchanged. No change in her regimen was needed. 10/09/2024 Anticoagulated (ICD-10 - Z79.01) . There is no contraindication to this patient remaining on anticoagulation during the procedure. I have spoken to the surgical instrument maker at the ophthalmologists office. They do not require the anticoagulation to be held. 11/26/2024 Hypothyroid (ICD-10 - E03.9) Her TSH has been slightly elevated. If it remains this way on repeat her dose will be adjusted. 01/07/2025 Hyperlipidemia type II (ICD-10 - E78.0) Her lipids have been well controlled. Her fasting lipid profile will be ordered periodically. No change in her regimen was needed today. 02/05/2025 Sjoegren syndrome (ICD-10 - M35.00) This problem is well controlled with oral medication. 02/10/2025 Sjoegren syndrome (ICD-10 - M35.00) This problem is well controlled with oral medication. 03/30/2024 Malignant neoplasm of unspecified site of right female breast (ICD-10 - C50.911) Is no sign of recurrence or relapse her new primary today. 04/24/2024 Sjoegren syndrome (ICD-10 - M35.00) This problem is well controlled with oral medication. 09/04/2024 Pancreatic mass (ICD-10 - K86.9) The CA-19-9 [...] adenopathy. She continues in a durable remission. 09/16/2024 Sjoegren syndrome (ICD-10 - M35.00) This problem is well controlled with oral medication. 09/22/2024 Osteopenia after menopause (ICD-10 - M81.0) She will have periodic bone densities. I recommended Os-Samy 500 mg twice a day. The thousand units of vitamin D daily. She will be evaluated periodically for alendronate. 09/29/2024 Osteopenia after menopause (ICD-10 - M81.0) She will have periodic bone densities. I recommended Os-Samy 500 mg twice a day. The thousand units of vitamin D daily. She will be evaluated periodically for alendronate. 10/09/2024 Chronic congestive heart failure, unspecified heart failure type (ICD-10 - I50.9) Her CHF is now well compensated and she is compliant with her medications. Cardiology follow-up has been arranged. 11/26/2024 Pancreatic mass (ICD-10 - K86.9) The [...] to have surgery on the pancreas. 01/07/2025 Pancreatic mass (ICD-10 - K86.9) The [...] to have surgery on the pancreas. 02/05/2025 Right knee DJD (ICD-10 - M17.9) The pain in her right knee is mild to moderate and unchanged. No change in her regimen was needed. 02/10/2025 Psoriasis (ICD-10 - L40.9) Her psoriasis is very mild and does not require treatment at this time. 03/30/2024 Atrial fibrillation, unspecified (ICD-10 - I48.91) Her heart rate is well controlled today on no change in her regimen was made. 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 No change in her regimen was needed. 09/04/2024 Nonrheumatic aortic valve stenosis (ICD-10 - I35.0) Her exercise tolerance is improved and she has no long-term side effects from repair of the aortic valve. He is under the care of the transaction manager and compliant with her therapies. 09/07/2024 Former smoker (ICD-10 - Z87.891) She is highly motivated not to smoke. We have discussed strategies for maintenance of abstinence in times of stress and illness. 09/16/2024 Coagulopathy (ICD-10 - D68.9) She has a history of pulmonary embolism and atrial fibrillation and is chronically anticoagulated. She has had no episodes of bleeding. She has had no further episodes of arterial clotting or venous thromboembolism. 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 No murmurs heard. 10/09/2024 Overweight (BMI 25.0-29.9) (ICD-10 - E66.3) Her body mass index is 26. We agreed to stabilize her weight at this level until the acute illness has resolved. The she will receive dietary counseling and we will try to reduce hher weight at a rate of one half of a pound per week. 11/26/2024 Osteopenia after menopause (ICD-10 - M81.0) She will have periodic bone densities. I recommended Os-Samy 500 mg twice a day. The thousand units of vitamin D daily. She will be evaluated periodically for alendronate. 01/07/2025 Chronic congestive heart failure, unspecified heart failure type (ICD-10 - I50.9) Her CHF is now well compensated and she is compliant with her medications. Cardiology follow-up has been arranged. 02/05/2025 Atrial fibrillation (ICD-10 - I48.91) She has been well controlled lately. She has been compliant with all of her medications. She was in a regular rhythm today 02/10/2025 Hyperlipidemia type II (ICD-10 - E78.0) Her lipids have been well controlled. Her fasting lipid profile will be ordered periodically. No change in her regimen was needed today. 03/30/2024 S/P TAVR (transcatheter aortic valve replacement) (ICD-10 - Z95.2) Her valve continues to work appropriately. No murmurs heard. 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 No murmurs heard. 09/16/2024 Nonrheumatic aortic valve stenosis (ICD-10 - I35.0) Her exercise tolerance is improved and she has no long-term side effects from repair of the aortic valve. He is under the care of the transaction manager and compliant with her therapies. 09/29/2024 Chronic congestive heart failure, unspecified heart failure type (ICD-10 - I50.9) Her CHF is now well compensated and she is compliant with her medications. Cardiology follow-up has been arranged. 10/09/2024 Other chronic pain (ICD-10 - G89.29) There is virtually no disc space between L3 and L4 and she has appointment with a neurosurgeon in a couple of weeks. She was continued on her current analgesic regimen.She has had a compression fracture of the thoracic spine as well as the lumbar spine as well. 11/26/2024 Nonrheumatic aortic valve stenosis (ICD-10 - I35.0) Her exercise tolerance is improved and she has no long-term side effects from repair of the aortic valve. He is under the care of the transaction manager and compliant with her therapies. 01/07/2025 Anticoagulated (ICD-10 - Z79.01) . There is no contraindication to this patient remaining on anticoagulation during the procedure. I have spoken to the surgical instrument maker at the ophthalmologists office. They do not require the anticoagulation to be held. 02/05/2025 Hypothyroid (ICD-10 - E03.9) Her TSH has been slightly elevated. If it remains this way on repeat her dose will be adjusted. 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 No murmurs heard. 03/30/2024 Anticoagulated (ICD-10 - Z79.01) . There is no contraindication to this patient remaining on anticoagulation during the procedure. I have spoken to the surgical instrument maker at the ophthalmologists office. They do not require the anticoagulation to be held. 09/04/2024 Anticoagulated (ICD-10 - Z79.01) . There is no contraindication to this patient remaining on anticoagulation during the procedure. I have spoken to the surgical instrument maker at the ophthalmologists office. They do not require the anticoagulation to be held. 09/16/2024 Chronic congestive heart failure, unspecified heart failure type (ICD-10 - I50.9) Her CHF is now well compensated and she is compliant with her medications. Cardiology follow-up has been arranged. 09/29/2024 Atrial fibrillation, unspecified (ICD-10 - I48.91) Her heart rate is well controlled today on no change in her regimen was made. 10/09/2024 Early gastric cancer (ICD-10 - C16.9) This was an incidental finding on upper endoscopy done and a biopsy a cystic pancreatic mass. She is going to arrange for resection with the surgeon next week.Currently undergoing staging. 11/26/2024 Anticoagulated (ICD-10 - Z79.01) . There is no contraindication to this patient remaining on anticoagulation during the procedure. I have spoken to the surgical instrument maker at the ophthalmologists office. They do not require the anticoagulation to be held. 02/05/2025 Hyperlipidemia type II (ICD-10 - E78.0) Her lipids have been well controlled. Her fasting lipid profile will be ordered periodically. No change in her regimen was needed today. 02/10/2025 Chronic congestive heart failure, unspecified heart failure type (ICD-10 - I50.9) Her CHF is now well compensated and she is compliant with her medications. Cardiology follow-up has been arranged. 09/04/2024 Chronic congestive heart failure, unspecified heart failure type (ICD-10 - I50.9) Her CHF is now well compensated and she is compliant with her medications. Cardiology follow-up has been arranged. 09/16/2024 Overweight (BMI 25.0-29.9) (ICD-10 - E66.3) Her body mass index is 26. We agreed to stabilize her weight at this level until the acute illness has resolved. The she will receive dietary counseling and we will try to reduce hher weight at a rate of one half of a pound per week. 09/29/2024 Sicca syndrome, unspecified (ICD-10 - M35.00) The oral dryness remains unchanged. She has been compliant with frequent visits to her dentist. 11/26/2024 Chronic congestive heart failure, unspecified heart failure type (ICD-10 - I50.9) Her CHF is now well compensated and she is compliant with her medications. Cardiology follow-up has been arranged. 02/05/2025 Pancreatic mass (ICD-10 - K86.9) The [...] to have surgery on the pancreas. 02/10/2025 Atrial fibrillation, unspecified (ICD-10 - I48.91) Her heart rate is well controlled today on no change in her regimen was made. 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 She is going to arrange for resection with the surgeon next week. 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 She is going to arrange for resection with the surgeon next week. 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 She is going to arrange for resection with the surgeon next week. 11/26/2024 Sicca syndrome, unspecified (ICD-10 - M35.00) The oral dryness remains unchanged. She has been compliant with frequent visits to her dentist. 02/05/2025 Osteopenia after menopause (ICD-10 - M81.0) She will have periodic bone densities. I recommended Os-Samy 500 mg twice a day. The thousand units of vitamin D daily. She will be evaluated periodically for alendronate. 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 She has opted out of surgery. She is feeling very tired and nauseous and has pain with swallowing from the radiation. Be followed carefully. She is also being followed by radiation oncology and medical oncology at [facility]. 09/04/2024 Former smoker (ICD-10 - Z87.891) She is highly motivated not to smoke. We have discussed strategies for maintenance of abstinence in times of stress and illness. 09/29/2024 Malignant neoplasm of unspecified site of right female breast (ICD-10 - C50.911) Is no sign of recurrence or relapse her new primary today. 11/26/2024 Compression fracture of L2 vertebra, initial encounter (ICD-10 - S32.020A) She is being referred to endocrinology and interventional radiology for vertebroplasty all 02/05/2025 Hypothyroidism, unspecified (ICD-10 - E03.9) She has been compliant with her medication. She appears to be euthyroid today. No change in her regimen was made. 02/10/2025 Hypothyroid (ICD-10 - E03.9) Her TSH has been slightly elevated. If it remains this way on repeat her dose will be adjusted. 11/26/2024 Overweight (BMI 25.0-29.9) (ICD-10 - E66.3) Her body mass index is 26. We agreed to stabilize her weight at this level until the acute illness has resolved. The she will receive dietary counseling and we will try to reduce hher weight at a rate of one half of a pound per week. 02/10/2025 Osteopenia after menopause (ICD-10 - M81.0) [...] He is under the care of the transaction manager and compliant with her therapies. 02/10/2025 Anticoagulated (ICD-10 - Z79.01) . There is no contraindication to this patient remaining on anticoagulation during the procedure. I have spoken to the surgical instrument maker at the ophthalmologists office. They do not require the anticoagulation to be held. Plan Of Treatment Pending Test Test Name [...] C) 05/27/2018 PROFILE, FASTING (COMPREHENSIVE METABOLI C) 09/09/2023 PROFILE, FASTING (COMPREHENSIVE METABOLI C) 10/28/2019 PROFILE, FASTING (COMPREHENSIVE METABOLI C) 02/02/2022 PROFILE, FASTING (COMPREHENSIVE METABOLI C) 02/06/2023 PROFILE, RANDOM (COMPREHENSIVE METABOLIC ) 11/04/2018 PROFILE, RANDOM (COMPREHENSIVE METABOLIC ) 12/20/2021 PROFILE, RANDOM (COMPREHENSIVE METABOLIC ) 09/22/2020 PROFILE, RANDOM (COMPREHENSIVE METABOLIC ) 06/02/2020 PROFILE, RANDOM (COMPREHENSIVE METABOLIC ) 03/10/2020 PROFILE, RANDOM (COMPREHENSIVE METABOLIC ) 07/08/2019 PROFILE, RANDOM (COMPREHENSIVE METABOLIC ) 04/08/2019 PROFILE, RANDOM (COMPREHENSIVE METABOLIC ) 09/20/2020 PROFILE, RANDOM (COMPREHENSIVE METABOLIC ) 02/07/2024 AMYLASE 09/22/2020 LIPASE 09/22/2020 LIPID PANEL 02/02/2022 [...] T4 (FT4) 05/27/2018 TSH (THYROID STIMULATING HORMONE) 2023 TSH (THYROID STIMULATING HORMONE) 2020 TSH (THYROID [...] FERRITIN 09/20/2020 CEA 06/05/2021 CBC w DIFF 10/28/2019 CBC w DIFF 02/07/2024 CBC w DIFF 11/04/2018 CBC w DIFF 06/02/2020 CBC w DIFF 07/17/2017 CBC w DIFF 03/10/2020 CBC w DIFF 08/20/2018 CBC w DIFF 05/27/2018 CBC w DIFF 07/08/2019 CBC w DIFF 09/20/2020 CBC w DIFF 12/20/2021 CBC w DIFF 04/08/2019 CBC w DIFF 06/05/2021 CBC w DIFF 01/15/2019 CBC w DIFF 11/19/2022 CBC w DIFF 11/25/2023 CBC w DIFF 03/13/2017 CBC w DIFF 02/02/2022 CBC w DIFF 02/06/2023 CBC w DIFF 12/12/2016 SED RATE (ESR) 02/06/2023 SED RATE (ESR) 09/09/2023 SED RATE (ESR) 09/22/2020 SED RATE (ESR) 10/28/2019 SED RATE (ESR) 07/17/2017 SED RATE (ESR) 07/08/2019 SED RATE (ESR) 11/19/2022 SED RATE (ESR) 03/13/2017 SED RATE (ESR) 02/02/2022 HEPATITIS A,B,C PROFILE 09/20/2020 ALPHA-FETOPROTEIN,TUMOR MARKER CARBOHYDRATE ANTIGEN 19-9 (CA 19-9) 09/2023 CARBOHYDRATE ANTIGEN 19-9 (CA 19-9) 1008/2022 CA 27.29 03/13/2017 CA 27.29 09/22/2020 CA 27.29 11/04/2018 CA 27.29 08/20/2018 LYME DISEASE IgG/IgM WB 08/20/2018 CT ABD WITH CONTRAST 09/26/2022 CT ABD WITH CONTRAST 12/20/2021 XR CERVICAL SPINE 2-3 VIEWS 02/10/2025 XR LUMBAR SPINE 09/26/2022 XR PELVIS 09/26/2022 BONE DENSITY DEXA 09/22/2024 MAMMOGRAM DIGITAL UNILATERAL MANUELITO LT 06/07 VITAMIN D 25-OH TOTAL 02/02/2022 VITAMIN D 25-OH TOTAL 08/20/2018 CBC WITH AUTO DIFF 09/09/2023 CBC WITH AUTO DIFF 06/10/2023 Lipid Panel 06/10/2023 Lipid Panel 06/05/2021 Lipid Panel 11/25/2023 Lipase 06/05/2021 Carbohydrate Antigen 19-9 11/25/2023 Carbohydrate Antigen 19-9 02/02/2022 Carbohydrate Antigen 19-9 12/20/2021 Next Appt Details Provider Name:Demetrius Cote , 03/11/2025 10:45:00 AM, [address] [place] [address] [address], [place], [phone], Provider Name:Demetrius Cote , 11/30/2025 09:30:00 AM, [address] [place] [address] [address], [place], [phone], Insurance Providers Payer Name Payer Address Payer Phone Subscriber Number Group Number Insured Name Patient Relationship to Insured Coverage Start Date Coverage End Date MEDICARE NGS [address] [place] [address] [id number] Kayla Cheung Self - patient is the insured [facility] [address] [place], [place] [phone] [id number] Kayla Cheung Self - patient is the insured Medical (General) History Medical History History ICD Code nulliparous psoriasis hodgkins [id number] sjogren's syndrome 2000 insomnia Hypothyroidism 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 Surgical History Surgery Date(Month/Year) Ai 2000 Spleen removed 1987 Liver Bx 11/23/[address] Hector Thorne [place] [facility] [place] 09/2023 Aorta Catherization 08/2022 endoscopy at [facility] 01/2020 battery replacement in pacemaker 02/2020 Mastectomy right breast 11/08/2014 kyphoplasty 10/2014, 09/2017 pacermaker insertion 10/2011 Hospitalization History Reason Date(Month/Year) Multiple
== END 2025-02-26 15:26 | disposition home or self-care (01) ==
LOC: HO.HNS 14:21
PROVIDERS: PCP Internal Medicine Medical Oncology; Visit Provider Neurological Surgery
DX: M81.0 Age-related osteoporosis without current pathological fracture (principal); M54.2 Cervicalgia
CPT/HCPCS: 99213

== ENCOUNTER → 2025-02-26 14:21 | Outpatient (BNVA) | payer MEDICARE, SELFPAY ==
[2025-02-10 08:41] VITALS: BP 130/62; BP 134/66; BP 138/70; BMI 33.3
== END ==
PROVIDERS: PCP Internal Medicine Medical Oncology; Visit Provider Neurological Surgery
DX: M81.0 Age-related osteoporosis without current pathological fracture (principal); M54.2 Cervicalgia
CPT/HCPCS: 99212

== ENCOUNTER 2025-04-08 07:26 | Outpatient (REF) | payer MEDICARE, SELFPAY ==
--- OUTSIDE RECORDS SUMMARY | 2025-01-07 06:00 | XMS_ITS ---
Author Organization Demetrius Cote III, MD Address [address] [address] Care Team Providers Care Seat Cover Cutter Name Role Phone Dr. Demetrius Cote III Primary Care Provider Allergies Allergen (clinical drug ingredient) Drug/Non Drug Allergy documented on EMR Reaction Allergy Type Onset Date Status Penicillin Unknown Drug Allergy Active tramadol traMADol Unknown Drug Allergy Active No Known Food Allergy Unknown Drug Allergy Active sulfamethoxazole / trimethoprim Sulfamethoxazole-Tri methoprim hives Drug Allergy Active amoxicillin Amoxicillin hives Drug Allergy Act anmol REASON FOR VISIT Gastric cancer, History of Hodgkin's disease, Marginal zone lymphoma, Ductal carcinoma right breast, T11 compression fracture, Sjogrens syndrome Medications Medication SIG (Take, Route, Frequency, Duration) Notes Start Date End Date Status traZODone HCl 150 MG TAKE 1 TABLET BY MO UTH EVERY NIGHT AT BEDTIME Active Metoprolol Tartrate 25 MG TAKE 1 TABLET 2 TIMES DAILYWITH FOOD Active Amiodarone HCl 200 MG TAKE 2 TABLETS BY MOUTH TWICE DAILY FOR 12 DAYS THEN TAKE 1 TABLET BY MOUTH DAILY Oral Active Simvastatin 40 MG TAKE 1 TABLET EVERY EVENING Active Alendronate Sodium 70 MG TAKE 1 TABLET B Y MOUTH 1 TIME A WEEK 30 MINUTES BEFORE FIRST FOOD OR BEVERAGE OR MEDICINE OF THE DAY WITH WATER Active D3-1000 25 MCG (1000 UT) 1 capsule Orall y Once a day Active Furosemide 20 MG TAKE 1 TABLET BY JOSÉ TH EVERY OTHER DAY Oral Active Melatonin 1 MG 1 tablet at bedtime as needed Orally Once a day Active Aspirin 81 81 MG 1 tablet Orally Once a day Active Eliquis 5 MG 1 tablet Orally Twic e a day Active Gabapentin 300 MG 1 capsule Orally thr ee times a day 06/23/2024 Active dexAMETHasone 2 MG 1 tablet Orally twic e a day 06/23/2024 Active FeroSul 325 (65 Fe) MG TAKE 1 TABLET BY MOUTH EVERY DAY Active Levothyroxine Sodium 100 MCG TAKE 1 TABLET DAILY Active levoFLOXacin 500 MG 1 tablet Orally Once a day 09/10/2023 Active Calcium Carbonate 1500 (600 Ca) MG 1 tablet with food Orally Twice a day Active Social History Tobacco Use: [...] Additional Findings: Tobacco non-user Ex-cigaret te smoker Encounters Encounter Location Date Provider Diagnosis Demetrius Cote III, MD [address] [place] [address] [place] [address] 01/07/2025 Demetrius Cote 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 ; Former smoker Z87.891 ; Wedge compression fracture of T11 vertebra S22.080A ; Compression fracture of L2 vertebra with routine healing, subsequent encounter S32.020D ; Overweight (BMI 25.0-29.9) E66.3 ; 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 ; Hodgkins disease C81.90 ; Atrial fibrillation I48.91 ; Hyperlipidemia type II E78.0 ; Pancreatic mass K86.9 ; Chronic congestive heart failure, unspecified heart failure type I50.9 and Anticoagulated Z79.01 Assessments Encounter Date Diagnosis (ICD Code) Assessment Notes T reatment Notes Treatment Clinical Notes 01/07/2025 Early gastric cancer (ICD-10 - C16.9) This was an incidental finding on upper endoscopy done and a biopsy a cystic pancreatic mass. She is going to arrange for resection with the surgeon next week.Currently undergoing staging. 01/07/2025 Former smoker (ICD-10 - Z87.891) She is highly motivated not to smoke. We have discussed strategies for maintenance of abstinence in times of stress and illness. 01/07/2025 Wedge compression fracture of T11 vertebra (ICD-10 - S22.080A) Her pain has become minimally but it can be reproduced with percussion. No change in her regimen is needed. 01/07/2025 Compression fracture of L2 vertebra with routine healing, subsequent encounter (ICD-10 - S32.020D) On July 20, 2024 at [facility] she underwent kyphoplasty for an L2 compression fracture. Over the last 2 weeks she has developed severe pain in her lumbar spine a radiates down her right leg into her knee. I have Given her tramadol 50 mg every 8 hours with a followup visit in 48 hours.I have referred her to pain management. Further imaging and neurosurgery may be necessary. 01/07/2025 Overweight (BMI 25.0-29.9) (ICD-10 - E66.3) Her body mass index is 26. We agreed to stabilize her weight at this level until the acute illness has resolved. The she will receive dietary counseling and we will try to reduce hher weight at a rate of one half of a pound per week. 01/07/2025 Invasive ductal carcinoma of right breast (ICD-10 - C50.911) The mastectomy site is free of any sign of relapse. The left breast is unremarkable. 01/07/2025 Hodgkins disease (ICD-10 - C81.90) There is no adenopathy. She continues in a durable remission. 01/07/2025 Atrial fibrillation (ICD-10 - I48.91) She has been well controlled lately. She has been compliant with all of her medications. She was in a regular rhythm today 01/07/2025 Hyperlipidemia type II (ICD-10 - E78.0) Her lipids have been well controlled. Her fasting lipid profile will be ordered periodically. No change in her regimen was needed today. 01/07/2025 Pancreatic mass (ICD-10 - K86.9) The CA-19-9 [...] need to have surgery on the pancreas. 01/07/2025 Chronic congestive heart failure, unspecified heart failure type (ICD-10 - I50.9) Her CHF is now well compensated and she is compliant with her medications. Cardiology follow-up has been arranged. 01/07/2025 Anticoagulated (ICD-10 - Z79.01) . There is no contraindication to this patient remaining on anticoagulation during the procedure. I have spoken to the surgical rn at the ophthalmologists office. They do not require the anticoagulation to be held. Plan Of Treatment Medication Medication Name Sig Start Date Stop Date Notes traZODone HCl 150 MG TAKE 1 TABLET BY MO UTH EVERY NIGHT AT BEDTIME Metoprolol Tartrate 25 MG TAKE 1 TABLET 2 TIMES DAILYWITH FOOD Amiodarone HCl 200 MG TAKE 2 TABLETS BY MOUTH TWICE DAILY FOR 12 DAYS THEN TAKE 1 TABLET BY MOUTH DAILY Oral Simvastatin 40 MG TAKE 1 TABLET EVERY EVENING Alendronate Sodium 70 MG TAKE 1 TABLET B Y MOUTH 1 TIME A WEEK 30 MINUTES BEFORE FIRST FOOD OR BEVERAGE OR MEDICINE OF THE DAY WITH WATER D3-1000 25 MCG (1000 UT) 1 capsule Orally Once a day Furosemide 20 MG TAKE 1 TABLET BY JOSÉ TH EVERY OTHER DAY Oral Melatonin 1 MG 1 tablet at bedtime as needed Orally Once a day Aspirin 81 81 MG 1 tablet Orally Once a day Eliquis 5 MG 1 tablet Orally Twice a day Gabapentin 300 MG 1 capsule Orally thr ee times a day 06/23/2024 dexAMETHasone 2 MG 1 tablet Orally twice a day 06/23/2024 FeroSul 325 (65 Fe) MG TAKE 1 TABLET BY MOUTH EVERY DAY Levothyroxine Sodium 100 MCG TAKE 1 TABLET DAILY levoFLOXacin 500 MG 1 tablet Orally Once a day 09/10/2023 Calcium Carbonate 1500 (600 Ca) MG 1 tablet with food Orally Twice a day Next Appt Details Follow Up: 4 Weeks, Reason: Telehealth Provider Name:Demetrius Cote , 04/19/2025 10:30:00 AM, [address] [place] [address] [address] [place], [place], [address], Provider Name:Demetrius Cote , 11/30/2025 09:30:00 AM, [address] [place] [address] [address] [place], [place], [address], Progress Notes * Kayla CHEUNGDOB:[birth year] (79 yo F)Acc No.[id number]:01/07/2025 Patient: Kayla TORRES Provider: Trinidad Cote MD :1945 A ge:79 Y S ex:Female Date:01/07/2025 Address:[address] [place], [place] [id number] Subjective: * Chief Complaints: * G astric cancerHistory of Hodgkin's diseaseMarginal zone lymphomaDuctal carcinoma right ptsjffL19 compression fractureSjogrens syndrome * HPI: C OVID-19 Screening: T his telehealth visit took place over 15 minutes with the patient at home and me in my office. She gave consent for billing. This visit was to monitor her medical issues and health during the treatment for gastric cancer. She is receiving chemoradiation. She is being treated at [facility] by Dr. Arndt of r adiation therapy and Dr. Potter of medical oncology. He is treating her with radiation sensitizing capecitabine.He is tolerating it well so far. She is maintaining her weight. Questions H ave you had any new onset fever, chills, cough, congestion, sore throat, shortness of breath, muscle aches? N o * : Telehealth L ocation of provider rendering services: { ...} [address] [facility] [address] L ocation of patient: cm lopezess listed in demographics for today's visit P atient identification confirmed using: KAREN Kumari ame T elehealth method: T elephone only. Patient not visible to care provider. C onsent: P atient verbally consented to treatment, Patient verbally consented to billing insurance company, Patient informed of any privacy concerns related to method of visit T otal time spent with patient (mins) 2 2 * ROS: G eneral/Constitutional: pain o nly normal aches and pains, only normal aches and pains. C hills d enies, denies. F atigue a dmits, admits. F ever d enies, denies. E NT: Decreased hearing d enies, denies. R espiratory: Cough d enies, denies. C ardiovascular: Chest pain with exertion d enies, denies. D yspnea on exertion d enies, denies. S hortness of breath d enies, denies. G astrointestinal: Constipation o ccasional, denies. D ecreased appetite?denies, denies. D iarrhea N o diarrhea so far, denies. H eartburn d enies, denies. N ausea d enies, denies. R ectal bleeding d enies, denies. V omiting d enies, denies. H ematology: bruising d enies, denies. p etechiae d enies, denies. S wollen glands n one have been noted, none have been noted. G enitourinary: Frequent urination d enies, denies. M usculoskeletal: Muscle aches d enies, denies. P ainful joints d enies, denies. S ciatica d enies, denies. W eakness d enies, denies. S kin: Itching d enies, denies. R stan d enies, denies.?Skin lesion(s) d enies, denies. N eurologic: Difficulty speaking d enies, denies. D izziness d enies, denies. H eadache d enies, denies. L ow back pain d enies, denies. ? P sychiatric: Depressed mood d enies, denies. * Medical History: * Surgical History: p acermaker insertion 10/2011kyphoplasty 10/2014, 09/2017Mastectomy right breast 11/08/2014battery replacement in pacemaker 02/2020endoscopy at [facility] 01/2020Aorta Catherization atheter [place] Dr Hector [place] [facility] [place]/2023Liver Bx 11/23/24Spleen removed jorens 2000 * Hospitalization/Major Diagno stic Procedure: Denisha daily * Family History: F ather: 78 yrs, [...] dditional Findings: Tobacco non-user E x-cigarette smoker S he is with children. She is working. She is in remission from the Hodgkins disease for many years. She was born in [place], [place]. The patient lives with her daughter. [...] 100 MCG Tablet TAKE 1 TABLET DAILY levoFLOXacin 500 MG Tablet 1 tablet Orally [...] TAKE 1 TABLET BY MOUTH DAILY Oral Alendronate Sodium 70 MG Tablet TAKE 1 TABLET BY MOUTH 1 TIME A WEEK 30 MINUTES BEFORE FIRST FOOD OR BEVERAGE OR MEDICINE OF THE DAY WITH WATER Simvastatin 40 MG Tablet TAKE 1 TABLET EVERY EVENING Medication List reviewed and reconciled with the patientTaking traZODone HCl 150 MG Tablet TAKE 1 [...] MCG Tablet TAKE 1 TABLET DAILY Taking levoFLOXacin 500 MG Tablet 1 tablet [...] 1 TABLET BY MOUTH DAILY Oral Taking Alendronate Sodium 70 MG Tablet TAKE 1 TABLET BY MOUTH 1 TIME A WEEK 30 MINUTES BEFORE FIRST FOOD OR BEVERAGE OR MEDICINE OF THE DAY WITH WATER Taking Simvastatin 40 MG Tablet TAKE 1 TABLET EVERY EVENING Medication List reviewed and reconciled with the patient * Allergies: A moxicillin: hivesSulfamethoxazole-Trimethoprim: hivesPenicillintraMADolNo Known Food Allergyno[Allergies Verified] Objective: * Vitals: * P ast Orders: I maging:XR lumbar spine 1V (Order Date - 10/23/2024) (Performed Date - 10/23/2024) Assessment: * Assessment: 1. E seferino gastric cancer - C16.9 (Primary) N otes :This was an incidental finding on upper endoscopy done and a biopsy a cystic pancreatic mass. She is going to arrange for resection with the surgeon next week.Currently undergoing staging. 2 . F ormer smoker - Z87.891 N otes :She is highly motivated not to smoke. We have discussed strategies for maintenance of abstinence in times of stress and illness. 3 . W edge compression fracture of T11 vertebra - S22.080A N otes :Her pain has become minimally but it can be reproduced with percussion. No change in her regimen is needed. 4 . C ompression fracture of L2 vertebra with routine healing, subsequent encounter - S32.020D N otes :On July 20, 2024 at [facility] she underwent kyphoplasty for an L2 compression fracture. Over the last 2 weeks she has developed severe pain in her lumbar spine a radiates down her right leg into her knee. I have Given her tramadol 50 mg every 8 hours with a followup visit in 48 hours.I have referred her to pain management. Further imaging and neurosurgery may be necessary. 5 . O verweight (BMI 25.0-29.9) - E66.3 N otes :Her body mass index is 26. We agreed to stabilize her weight at this level until the acute illness has resolved. The she will receive dietary counseling and we will try to reduce hher weight at a rate of one half of a pound per week. 6 . I nvasive ductal carcinoma of right breast - C50.911 N otes :The mastectomy site is free of any sign of relapse. The left breast is unremarkable. 7 . H odgkins disease - C81.90 N otes :There is no adenopathy. She continues in a durable remission. 8 . A trial fibrillation - I48.91 N otes :She has been well controlled lately. She has been compliant with all of her medications. She was in a regular rhythm today 9 . H yperlipidemia type II - E78.0 N otes :Her lipids have been well controlled. Her fasting lipid profile will be ordered periodically. No change in her regimen was needed today. 1 0. P ancreatic mass - K86.9 [...] have surgery on the pancreas. 1 1. C hronic congestive heart failure, unspecified heart failure type - I50.9? Notes :Her CHF is now well compensated and she is compliant with her medications. Cardiology follow-up has been arranged. 1 2. A nticoagulated - Z79.01 N otes :. There is no contraindication to this patient remaining on anticoagulation during the procedure. I have spoken to the surgical rn at the ophthalmologists office. They do not require the anticoagulation to be held. Plan: * Treatment: * Procedure Codes: 9 8012 SYNCH AUDIO-ONLY EST SF 10 * Preventive Medicine: Counseling: C are goal follow-up plan: Counseling for abnormal BMI given Y es Above Normal BMI Follow-up D ietary management education, guidance, and counseling * Follow Up: 4 Weeks (Reason: Telehealth) * Images: * Sign off status: Completed true * Provider: Trinidad Cote MD Date: 0 01/07/2025 Generated for Yoan moise/Kris/eTransmitting on: 1 06/09/2024 07:32 AM EST History and Physical Notes * HPI (History of Present Illness) Category Sub-Category Detail Notes Telehealth Location of [facility] ider rendering services:: {...} [address] [facility] [address] Location of patient:: address listed in demographics for today's visit Patient identification confirmed using:: Name, Telehealth method:: Telephone only. Cinthia ent not visible to care provider. Consent:: Patient verbally c onsented to treatment, Patient verbally consented to billing insurance company, Patient informed of any privacy concerns related to method of visit Total time spent with patient (mins): 22 COVID-19 Screening Questions Have you had any new onset fever, chills, cough, congestion, sore throat, shortness of breath, muscle aches?: No
--- OUTSIDE RECORDS SUMMARY | 2025-02-05 06:30 | XMS_ITS ---
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 Demetrius Cote III Primary Care Provider [phone] Allergies Allergen (clinical drug ingredient) Drug/Non Drug Allergy documented on EMR Reaction Allergy Type Onset Date Status Penicillin Unknown Drug Allergy Active tramadol traMADol Unknown Drug Allergy Active No Known Food Allergy Unknown Drug Allergy Active sulfamethoxazole / trimethoprim Sulfamethoxazole-Tri methoprim hives Drug Allergy Active amoxicillin Amoxicillin hives Drug Allergy Act anmol REASON FOR VISIT right breast cancer, obesity, T11 compression, lymphoma, history of Hodgkins disease, psoriasis, Sjogrens syndrome, Pancreatic mass, Hypothyroid, Aortic stenosis, repaired with TAVR, Congestive heartfailure, Anticoagulated Medications Medication SIG (Take, Route, Frequency, Duration) Notes Start Date End Date Status Simvastatin 40 MG TAKE 1 TABLET EVERY EVENING Active Alendronate Sodium 70 MG TAKE 1 TABLET B Y MOUTH 1 TIME A WEEK 30 MINUTES BEFORE FIRST FOOD OR BEVERAGE OR MEDICINE OF THE DAY WITH WATER Active traZODone HCl 150 MG TAKE 1 TABLET BY MO UTH EVERY NIGHT AT BEDTIME Active Metoprolol Tartrate 25 MG TAKE 1 TABLET 2 TIMES DAILYWITH FOOD Active Levothyroxine Sodium 100 MCG TAKE 1 TABLET DAILY Active Eliquis 5 MG 1 tablet Orally Twic e a day Active D3-1000 25 MCG (1000 UT) 1 capsule Orall y Once a day Active Furosemide 20 MG TAKE 1 TABLET BY JOSÉ TH EVERY OTHER DAY Oral Active Amiodarone HCl 200 MG TAKE 2 TABLETS BY MOUTH TWICE DAILY FOR 12 DAYS THEN TAKE 1 TABLET BY MOUTH DAILY Oral Active Aspirin 81 81 MG 1 tablet Orally Once a day Active FeroSul 325 (65 Fe) MG TAKE 1 TABLET BY MOUTH EVERY DAY Active levoFLOXacin 500 MG 1 tablet Orally Once a day 09/10/2023 Active Melatonin 1 MG 1 tablet at bedtime as needed Orally Once a day Active Gabapentin 300 [...] has it been since you last smoked? 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 C16.2 ; Former smoker Z87.891 ; Overweight (BMI 25.0-29.9) E66.3 ; Compression fracture of L3 vertebra with delayed healing, subsequent encounter S32.030G ; 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 ; Wedge compression fracture of T11 vertebra S22.080A ; Hodgkins disease C81.90 ; 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 She has opted out of surgery. She is feeling very tired and nauseous and has pain with swallowing from the radiation. Be followed carefully. She is also being followed by radiation oncology and medical oncology at [facility]. 02/05/2025 Former smoker (ICD-1 0 - Z87.891) She is highly motivated not to smoke. We have discussed strategies for maintenance of abstinence in times of stress and illness. 02/05/2025 Overweight (BMI 25.0-29.9) (ICD-10 - E66.3) Her body mass index is 26. We agreed to stabilize her weight at this level until the acute illness has resolved. The she will receive dietary counseling and we will try to reduce hher weight at a rate of one half of a pound per week. 02/05/2025 Compression fracture of L3 vertebra with delayed healing, subsequent encounter (ICD-10 - S32.030G) The degree of compression is minimal. There is loss of disc space between L3 and L4 which is likely causing the pain. She has an appointment with pain management and neurosurgery. 02/05/2025 Invasive ductal carcinoma of right breast (ICD-10 - C50.911) The mastectomy site is free of any sign of relapse. The left breast is unremarkable. 02/05/2025 Wedge compression fracture of T11 vertebra (ICD-10 - S22.080A) Her pain has become minimally but it can be reproduced with percussion. No change in her regimen is needed. 02/05/2025 Hodgkins disease (ICD-10 - C81.90) There is no adenopathy. She continues in a durable remission. 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 She continues in a durable remission 02/05/2025 Sjoegren syndrome (ICD-10 - M35.00) This problem is well controlled with oral medication. 02/05/2025 Right knee DJD (ICD-10 - M17.9) The pain in her right knee is mild to moderate and unchanged. No change in her regimen was needed. 02/05/2025 Atrial fibrillation (ICD-10 - I48.91) She has been well controlled lately. She has been compliant with all of her medications. She was in a regular rhythm today 02/05/2025 Hypothyroid (ICD-10 - E03.9) Her TSH has been slightly elevated. If it remains this way on repeat her dose will be adjusted. 02/05/2025 Hyperlipidemia type II (ICD-10 - E78.0) Her lipids have been well controlled. Her fasting lipid profile will be ordered periodically. No change in her regimen was needed today. 02/05/2025 Pancreatic mass (ICD-10 - K86.9) The CA-19-9 [...] need to have surgery on the pancreas. 02/05/2025 Osteopenia after menopause (ICD-10 - M81.0) She will have periodic bone densities. I recommended Os-Samy 500 mg twice a day. The thousand units of vitamin D daily. She will be evaluated periodically for alendronate. 02/05/2025 Hypothyroidism, unspecified (ICD-10 - E03.9) She has been compliant with her medication. She appears to be euthyroid today. No change in her regimen was made. Plan Of Treatment Medication Medication Name Sig Start Date Stop Date Notes Simvastatin 40 MG TAKE 1 TABLET EVERY EVENING Alendronate Sodium 70 MG TAKE 1 TABLET B Y MOUTH 1 TIME A WEEK 30 MINUTES BEFORE FIRST FOOD OR BEVERAGE OR MEDICINE OF THE DAY WITH WATER traZODone HCl 150 MG TAKE 1 TABLET BY MO UTH EVERY NIGHT AT BEDTIME Metoprolol Tartrate 25 MG TAKE 1 TABLET 2 TIMES DAILYWITH FOOD Levothyroxine Sodium 100 MCG TAKE 1 TABLET DAILY Eliquis 5 MG 1 tablet Orally Twice a day D3-1000 25 MCG (1000 UT) 1 capsule Orally Once a day Furosemide 20 MG TAKE 1 TABLET BY JOSÉ TH EVERY OTHER DAY Oral Amiodarone HCl 200 MG TAKE 2 TABLETS BY MOUTH TWICE DAILY FOR 12 DAYS THEN TAKE 1 TABLET BY MOUTH DAILY Oral Aspirin 81 81 MG 1 tablet Orally Once a day FeroSul 325 (65 Fe) MG TAKE 1 TABLET BY MOUTH EVERY DAY levoFLOXacin 500 MG 1 tablet Orally Once a day 09/10/2023 Melatonin 1 MG 1 tablet at bedtime as needed Orally Once a day Gabapentin 300 MG 1 capsule Orally thr ee times a day 06/23/2024 dexAMETHasone 2 MG 1 tablet Orally twice a day 06/23/2024 Calcium Carbonate 1500 (600 Ca) MG 1 tablet with food Orally Twice a day Next Appt Details Follow Up: 3 Weeks, Reason: OV Provider Name:Demetrius Cote , 04/19/2025 10:30:00 AM, [address] [place] [address] [address] [place], [address], Provider Name:Demetrius Cote , 11/30/2025 09:30:00 AM, [address] [place] [address] [address], [place], [phone], Progress Notes * Kayla CHEUNGDOB:[birth year] (79 yo F)Acc No.[id number]:02/05/2025 Patient: Kayla TORRES Provider: Trinidad Cote MD :1945 A ge:79 Y S ex:Female Date:02/05/2025 Address:[address] [place] [address] KEVIN [place], [id number] Subjective: * Chief Complaints: * R ight breast twrwefDafqwtwE60 compressionLymphomahistory of Hodgkins diseasePsoriasisSjogrens syndromePancreatic massHypothyroidAortic stenosis, repaired with TAVRCongestive heart failureAnticoagulated * HPI: * : S he returns for management of her numerous medical issues. Her main complaint is pain with swallowing lack of appetite energy dysphagia. He recently had an endoscopy and a small gastric cancer was found. She was offered surgery or a combination of radiation and chemotherapy. She chose the latter. She finished her course of radiation therapy yesterday morning. Continues to have radiation toxicity with swallowing. Is going to see medical oncology near future. She is using nystatin on a rash on her abdomen below her breasts that secondary to irradiation.She has an appointment with her radiation oncologist, Dr. Infante March 22, 2025. Telehealth L ocation of provider rendering services: { ...} [address] [place] [address] L ocation of patient: a ddress listed in demographics for today's visit P atient identification confirmed using: Kenyetta verdugo T elehealth method: T elephone only. Patient not visible to care provider. C onsent: P atient verbally consented to treatment, Patient verbally consented to billing insurance company, Patient informed of any privacy concerns related to method of visit T otal time spent with patient (mins) 2 2 * ROS: G eneral/Constitutional: pain P ainful skin within the radiation field, odynophagia.?Chills d enies. F atigue a dmits. F ever d enies. E NT: Decreased hearing m ild. R espiratory: Cough d enies. C ardiovascular: Chest pain with exertion d enies. D yspnea on exertion?denies. S hortness of breath d enies. G astrointestinal: Constipation o ccasional. D ecreased appetite t hat is not associated with weight loss. D iarrhea d enies. H eartburn d enies. N ausea f requent. R ectal bleeding d enies. V omiting [...] enies.?Headache d enies. L ow back pain d enies. P sychiatric: Depressed mood w hich is mild. * Medical History: * Surgical History: p acermaker insertion 10/2011kyphoplasty 10/2014, 09/2017Mastectomy right breast 11/08/2014battery replacement in pacemaker 02/2020endoscopy at [facility] 01/2020Aorta Catherization atheter ablation by Dr Hector Thorne at [facility] 09/2023Liver Bx 11/23/24Spleen removed jorens 2000 * Hospitalization/Major Diagno stic Procedure: Denisha killian * Family History: F ather: 78 [...] for many years. She was born in [place], [place]. The patient lives with her daughter. She has been living in the same house for 45 years. She has a dog that is aging and having trouble. * Medications: T akingSimvastatin 40 MG Tablet TAKE 1 TABLET EVERY EVENING Alendronate Sodium 70 MG Tablet TAKE 1 TABLET BY MOUTH 1 TIME A WEEK 30 MINUTES BEFORE FIRST FOOD OR BEVERAGE OR MEDICINE OF THE DAY WITH WATER traZODone HCl 150 MG Tablet TAKE 1 [...] TAKE 1 TABLET BY MOUTH EVERY DAY levoFLOXacin 500 MG Tablet 1 tablet Orally [...] TAKE 1 TABLET BY MOUTH DAILY Oral Levothyroxine Sodium 100 MCG Tablet TAKE 1 TABLET DAILY Medication List reviewed and reconciled with the patientTaking Simvastatin 40 MG Tablet TAKE 1 TABLET EVERY EVENING Taking Alendronate Sodium 70 MG Tablet TAKE 1 TABLET BY MOUTH 1 TIME A WEEK 30 MINUTES BEFORE FIRST FOOD OR BEVERAGE OR MEDICINE OF THE DAY WITH WATER Taking traZODone HCl 150 MG Tablet TAKE [...] 1 TABLET BY MOUTH EVERY DAY Taking levoFLOXacin 500 MG Tablet 1 tablet [...] 1 TABLET BY MOUTH DAILY Oral Taking Levothyroxine Sodium 100 MCG Tablet TAKE 1 TABLET DAILY Medication List reviewed and reconciled with the patient * Allergies: A moxicillin: hivesSulfamethoxazole-Trimethoprim: hivesPenicillintraMADolNo Known Food Allergyno[Allergies Verified] Objective: * Vitals: Assessment: * Assessment: 1. M alignant neoplasm of body of stomach - C16.2 (Primary) N otes :She has completed her radiation and will begin chemotherapy. She has opted out of surgery. She is feeling very tired and nauseous and has pain with swallowing from the radiation. Be followed carefully. She is also being followed by radiation oncology and medical oncology at [facility]. 2 . F ormer smoker - Z87.891 N otes :She is highly motivated not to smoke. We have discussed strategies for maintenance of abstinence in times of stress and illness. 3 . O verweight (BMI 25.0-29.9) - E66.3 N otes :Her body mass index is 26. We agreed to stabilize her weight at this level until the acute illness has resolved. The she will receive dietary counseling and we will try to reduce hher weight at a rate of one half of a pound per week. 4 . C ompression fracture of L3 vertebra with delayed healing, subsequent encounter - S32.030G N otes :The degree of compression is minimal. There is loss of disc space between L3 and L4 which is likely causing the pain. She has an appointment with pain management and neurosurgery. 5 . I nvasive ductal carcinoma of right breast - C50.911 N otes :The mastectomy site is free of any sign of relapse. The left breast is unremarkable. 6 . W edge compression fracture of T11 vertebra - S22.080A N otes :Her pain has become minimally but it can be reproduced with percussion. No change in her regimen is needed. 7 . H odgkins disease - C81.90 N otes :There is no adenopathy. She continues in a durable remission. 8 . M arginal zone lymphoma - C85.80 N otes :There was no enlargement of the salivary gland or adenopathy or splenomegaly. She continues in a durable remission 9 . S joegren syndrome - M35.00 N otes :This problem is well controlled with oral medication. 1 0. R ight knee DJD - M17.9 N otes :The pain in her right knee is mild to moderate and unchanged. No change in her regimen was needed. 1 1. A trial fibrillation - I48.91 N otes :She has been well controlled lately. She has been compliant with all of her medications. She was in a regular rhythm today 1 2. H ypothyroid - E03.9 N otes :Her TSH has been slightly elevated. If it remains this way on repeat her dose will be adjusted. 1 3. H yperlipidemia type II - E78.0 N otes :Her lipids have been well controlled. Her fasting lipid profile will be ordered periodically. No change in her regimen was needed today. 1 4. P ancreatic mass - K86.9 N otes [...] to have surgery on the pancreas. 1 5. O steopenia after menopause - M81.0 N otes :She will have periodic bone densities. I recommended Os-Samy 500 mg twice a day. The thousand units of vitamin D daily. She will be evaluated periodically for alendronate. 1 6. H ypothyroidism, unspecified - E03.9 N otes :She has been compliant with her medication. She appears to be euthyroid today. No change in her regimen was made. Plan: * Treatment: * Procedure Codes: 9 8012 SYNCH AUDIO-ONLY EST SF 10 * Preventive Medicine: Counseling: C are goal follow-up plan: Counseling for abnormal BMI given Y es Above Normal BMI Follow-up D ietary needs education * Follow Up: 3 Weeks (Reason: OV) * Images: * Sign off status: Completed true * Provider: Trinidad Cote MD Date: 1 Generated for Yoan moise/Kris/Chrisitting on: 06/09/2024 07:33 AM EST History and Physical Notes * HPI (History of Present Illness) Category Sub-Category Detail Notes Telehealth Location of [facility] rendering services:: {...} [address] [place] [id number] Location of patient:: address listed in demographics [...]
--- OUTSIDE RECORDS SUMMARY | 2025-02-09 04:43 | XMS_ITS ---
Author Organization Demetrius Cote III, MD Address [address] [place] [address] [place] [address] Care Team Providers Care Food Counselor Name Role Phone Dr. Demetrius Cote III Primary Care Provider REASON FOR VISIT Needs call back from Social History Sex Assigned At : Social History Observation Description Sex Assigned At Female Encounters Encounter Location Date Provider Diagnosis Demetrius Cote III, MD [address] [place] [address] [place] [address] 02/09/2025 Demetrius Cote Plan Of Treatment Next Appt Details Provider Name:Demetrius Cote , 04/19/2025 10:30:00 AM, [address] [place] [address] [place], [phone], Provider Name:Demetrius Cote , 11/30/2025 09:30:00 AM, [address] [place] [address] [place], [address], Progress Notes * Kayla CHEUNGDOB:[birth year] (79 yo F)Acc No.[id number]:02/09/2025 Patient: Kayla TORRES :1945 A ge:79 Y S ex:Female Address:[address] [place] [phone] * true * Date: Generated for Printi ng/Faxing/eTransmitting on: 06/09/2024 07:32 AM EST
--- OUTSIDE RECORDS SUMMARY | 2025-02-10 04:30 | XMS_ITS ---
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 Demetrius Cote III [...] anmol Results Component Value Reference Range Notes XR thoracic spine 3V Reviewed date:02/12/2025 06:22:18 AM Interpretation: Performing Lab: Notes/Report: [facility] [address] [place] [id number] XRay Report Signed Patient: Kayla Cheung MR#: [id number] : 1945 Acct:[id number] Age/Sex: 79 / F ADM Date: 02/10/25 Loc: HO.XRAY Attending Dr: Demetrius Cote MD Ordering Physician: Demetrius Cote MD Date of Service: 02/10/25 Procedure(s): XR thoracic spine 3V Accession Number(s): [id number] cc: Demetrius Cote MD Reason for Exam: COMPRESSION FX EXAMINATION: XR THORACIC SPINE CLINICAL INFORMATION: COMPRESSION FX COMPARISON: None available. TECHNIQUE: 2 views of the thoracic spine were obtained. FINDINGS: Defibrillating pacemaker is noted with lead in right atrium and right ventricle and within the coronary sinus. There is a stent within the heart. There is possible mild concavity of the upper T6 vertebral body. Methacrylate is noted within T11, T12, and L2. The upper thoracic spine is obscured by overlapping bony and soft tissues. XR/XR thoracic spine 3V IMPRESSION: Due to overlapping bony structures and osteopenia, upper thoracic spine is not well-demonstrated. There is possible mild superior endplate compression fracture of T6, however the vertebral body is not well seen. Kyphoplasty at T11, T12, and L2. 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 TECHNIQUE: 2 views of the thora cic spine were obtained. FINDINGS: Defibrillating pacem dony is noted with lead in right atrium and right ventricle and within the coronary sinus. There is a stent wit hin the heart. There is possible mi ld concavity of the upper T6 vertebral body. Methacrylate is note d within T11, T12, and L2. The upper thoracic s pine is obscured by overlapping bony and soft tissues. X R/XR thoracic spine 3V IMPRESSION: Due to overlapping b juancarlos structures and osteopenia, upper thoracic spine is not well-demonstr ated. There is possible mild superior endplate compression fracture of T6, however the vertebral body is not well seen. Kyphoplasty at T11, T12, and L2. 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: REASON FOR VISIT Acute severe neck pain, History of compression fractures, Cancer of the stomach, Lymphoma, Breast cancer Medications Medication SIG (Take, Route, Frequency, Duration) Notes Start Date End Date Status Calcium Carbonate 1500 (600 Ca) MG 1 tablet with food Orally Twice a day Active Metoprolol Tartrate 25 MG TAKE 1 TABLET 2 TIMES DAILYWITH FOOD Active Morphine Sulfate 15 MG 1 tablet as neede d Orally every 12 hrs for 10 days Partial Fill upon Patient Request 02/10/2025 02/20/2025 Active Alendronate Sodium 70 MG TAKE 1 TABLET BY MOUTH 1 TIME A WEEK 30 MINUTES BEFORE FIRST FOOD OR BEVERAGE OR MEDICINE OF THE DAY WITH WATER Active traZODone HCl 150 MG TAKE 1 TABLET BY MOUTH EVERY NIGHT AT BEDTIME Active Furosemide 20 MG TAKE 1 TABLET BY MOUTH EVERY OTHER DAY Oral Active Amiodarone HCl 200 MG TAKE 2 TABLETS BY MOUTH TWICE DAILY FOR 12 DAYS THEN TAKE 1 TABLET BY MOUTH DAILY Oral Active D3-1000 25 MCG (1000 UT) 1 capsule Orally Once a day Active Levothyroxine Sodium 100 MCG TAKE 1 TABLET DAILY Active Simvastatin 40 MG TAKE 1 TABLET EVERY EVENING Active FeroSul 325 (65 Fe) MG TAKE 1 TABLET BY MOUTH EVERY DAY Active Aspirin 81 81 MG 1 tablet Orally Once a day Active Eliquis 5 MG 1 tablet Orally Twice a day Active levoFLOXacin 500 MG 1 tablet Orally Once a day 09/10/2023 Active Melatonin 1 MG 1 tablet at bedtime as needed Orally Once a day Active dexAMETHasone 2 MG 1 tablet Orally twice a day 06/23/2024 Active Gabapentin 300 MG 1 capsule Orally three times a day 06/23/2024 Active Social History Tobacco Use: Social History Observation Description Date Details (start date - stop date) Former Smoker NA - NA Sex Assigned At : Social History Observation Description Sex Assigned At Female Tobacco Control (Standard) Question Answer Notes Tobacco use: Former smoker How long has it been since you last smoked? 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 ; Hodgkins disease C81.90 ; 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 ; Sjoegren syndrome M35.00 ; Psoriasis L40.9 ; Hyperlipidemia type II E78.0 ; S/P TAVR (transcatheter aortic valve replacement) Z95.2 ; Chronic congestive heart failure, unspecified heart failure type I50.9 ; Atrial fibrillation, unspecified I48.91 ; Malignant neoplasm of body of stomach C16.2 ; Hypothyroid E03.9 ; Osteopenia after menopause M81.0 ; Nonrheumatic aortic valve stenosis I35.0 and Anticoagulated Z79.01 Assessments Encounter Date Diagnosis (ICD Code) Assessment Notes T reatment Notes Treatment Clinical Notes 02/10/2025 Neck pain (ICD-10 - M54.2) During the radiation He currently painful area of her neck rested directly upon the edge of the radiation block. The radiation was completed late last week and the pain began yesterday. Review of the images done today shows severe disc disease between C5 and C6 but no obvious compression fracture. The bones are demineralized. 02/10/2025 Compression fracture of L2 vertebra with routine healing, subsequent encounter (ICD-10 - S32.020D) 02/10/2025 Wedge compression fracture of T11 vertebra (ICD-10 - S22.080A) Her pain has become minimally but it can be reproduced with percussion. No change in her regimen is needed. 02/10/2025 Former smoker (ICD-10 - Z87.891) She is highly motivated not to smoke. We have discussed strategies for maintenance of abstinence in times of stress and illness. 02/10/2025 Pancreatic mass (ICD-10 - K86.9) The CA-19-9 [...] need to have surgery on the pancreas. 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 She continues in a durable remission 02/10/2025 Hodgkins disease (ICD-10 - C81.90) There is no adenopathy. She continues in a durable remission. 02/10/2025 Invasive ductal carcinoma of right breast (ICD-10 - C50.911) The mastectomy site is free of any sign of relapse. The left breast is unremarkable. 02/10/2025 Sjoegren syndrome (ICD-10 - M35.00) This problem is well controlled with oral medication. 02/10/2025 Psoriasis (ICD-10 - L40.9) Her psoriasis is very mild and does not require treatment at this time. 02/10/2025 Hyperlipidemia type II (ICD-10 - E78.0) Her lipids have been well controlled. Her fasting lipid profile will be ordered periodically. No change in her regimen was needed today. 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 No murmurs heard. 02/10/2025 Chronic congestive heart failure, unspecified heart failure type (ICD-10 - I50.9) Her CHF is now well compensated and she is compliant with her medications. Cardiology follow-up has been arranged. 02/10/2025 Atrial fibrillation, unspecified (ICD-10 - I48.91) Her heart rate is well controlled today on no change in her regimen was made. 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 She has opted out of surgery. She is feeling very tired and nauseous and has pain with swallowing from the radiation. Be followed carefully. She is also being followed by radiation oncology and medical oncology at [facility]. 02/10/2025 Hypothyroid (ICD-10 - E03.9) Her TSH has been slightly elevated. If it remains this way on repeat her dose will be adjusted. 02/10/2025 Osteopenia after menopause (ICD-10 - M81.0) She will have periodic bone densities. I recommended Os-Samy 500 mg twice a day. The thousand units of vitamin D daily. She will be evaluated periodically for alendronate. 02/10/2025 Nonrheumatic aortic valve stenosis (ICD-10 - I35.0) Her exercise tolerance is improved and she has no long-term side effects from repair of the aortic valve. He is under the care of the linux server administrator and compliant with her therapies. 02/10/2025 Anticoagulated (ICD-10 - Z79.01) . There is no contraindication to this patient remaining on anticoagulation during the procedure. I have spoken to the surgical garment assembler at the ophthalmologists office. They do not require the anticoagulation to be held. Plan Of Treatment Medication Medication Name Sig Start Date Stop Date Notes Calcium Carbonate 1500 (600 Ca) MG 1 tablet with food Orally Twice a day Metoprolol Tartrate 25 MG TAKE 1 TABLET 2 TIMES DAILYWITH FOOD Morphine Sulfate 15 MG 1 tablet as neede d Orally every 12 hrs for 10 days 02/10/2025 02/20/2025 Partial Fill upon Patient Request Alendronate Sodium 70 MG TAKE 1 TABLET B Y MOUTH 1 TIME A WEEK 30 MINUTES BEFORE FIRST FOOD OR BEVERAGE OR MEDICINE OF THE DAY WITH WATER traZODone HCl 150 MG TAKE 1 TABLET BY MOUTH EVERY NIGHT AT BEDTIME Furosemide 20 MG TAKE 1 TABLET BY MOUTH EVERY OTHER DAY Oral Amiodarone HCl 200 MG TAKE 2 TABLETS BY MOUTH TWICE DAILY FOR 12 DAYS THEN TAKE 1 TABLET BY MOUTH DAILY Oral D3-1000 25 MCG (1000 UT) 1 capsule Orall y Once a day Levothyroxine Sodium 100 MCG TAKE 1 TABLET DAILY Simvastatin 40 MG TAKE 1 TABLET EVERY EVENING FeroSul 325 (65 Fe) MG TAKE 1 TABLET BY MOUTH EVERY DAY Aspirin 81 81 MG 1 tablet Orally Once a day Eliquis 5 MG 1 tablet Orally Twice a day levoFLOXacin 500 MG 1 tablet Orally Once a day 09/10/2023 Melatonin 1 MG 1 tablet at bedtime as needed Orally Once a day dexAMETHasone 2 MG 1 tablet Orally twice a day 06/23/2024 Gabapentin 300 MG 1 capsule Orally three times a day 06/23/2024 Pending Test Test Name Order Date XR CERVICAL SPINE 2-3 VIEWS 02/10/2025 Next Appt Details Follow Up: 2 - 3 Days, Reaso n: ov Provider Name:Demetrius Lynchne , 04/19/2025 10:30:00 AM, [address] [place] [address] [address], [place], [phone], Provider Name:Demetrius Cote , 11/30/2025 09:30:00 AM, [address] [place] [address] [address], [place], [phone], Progress Notes * Kayla CHEUNGDOB:[birth year] (79 yo F)Acc No.[id number]:02/10/2025 Progress Notes Patient: Kayla TORRES Provider: Trinidad Cote MD :1945 A ge:79 Y S ex:Female Date:02/10/2025 Address:[address] [place] [address], [id number] Subjective: * Chief Complaints: * A cute severe neck painHistory of compression fracturesCancer of the stomachLymphomaBreast cancer * HPI: C OVID-19 Screening: She comes in today because she has developed a 10 out of 10 severe pain in the lower neck and upper thoracic spine posteriorly. This developed at the end of her recent radiation therapy. Last week she completed a course of radiation therapy to a newly diagnosed gastric carcinoma. She had to lie flat on the radiation table with a wooden frame around her head and neck the rested on the area that is now painful. A herniated disc or a new compression fracture is suspected.? She was sent for x-rays of the cervical and thoracic spine. If necessary MRI will be done. I have given her prescription for morphine 15 mg which she is going to break into quarters and take 4 times a day.She finds this relieves her pain better than any other medication. She does not tolerate tramadol and finds oxycodone ineffective. She was in severe pain in the office today. Questions H ave you had any new onset fever, chills, cough, congestion, sore throat, shortness of breath, muscle aches? N o * ROS: G eneral/Constitutional: pain 1 0/10 Pain lower cervical and upper thoracic spine.?Chills d enies. F atigue a dmits. F ever d enies. E NT: Decreased hearing m ild. R espiratory: Cough d enies. C ardiovascular: Chest pain with exertion d enies. D yspnea on exertion?denies. S hortness of breath d enies. G astrointestinal: Constipation o ccasional. D ecreased appetite d enies. D iarrhea d enies. H eartburn d enies. N ausea i ntermittent. R ectal bleeding d enies. V omiting d enies. H ematology: bruising d enies. p etechiae d enies. S wollen glands n one have been noted. G enitourinary: Frequent urination a dmits. M usculoskeletal: Muscle aches d enies. P ainful joints d enies. S ciatica d enies. W eakness t hat is generalized. S kin: Itching d enies. R stan d enies. S kin lesion(s)?denies. N eurologic: Difficulty speaking d enies. D izziness d enies.?Headache d enies. L ow back pain d enies. P sychiatric: Depressed mood w hich is moderate. * Medical History: * Surgical History: p acermaker insertion 10/2011kyphoplasty 10/2014, 09/2017Mastectomy right breast 11/08/2014battery replacement in pacemaker 02/2020endoscopy at [facility] 01/2020Aorta Catherization [place] [facility] [place]Liver Bx 11/23/24Spleen removed [...] for many years. She was born in [place], [place]. The patient lives with her daughter. She has been living in the same house for 45 years. She has a dog that is aging and having trouble. * Medications: T akingLevothyroxine Sodium 100 MCG Tablet TAKE 1 TABLET [...] TAKE 1 TABLET BY MOUTH DAILY Oral Medication List reviewed and reconciled with the patientTaking Levothyroxine Sodium 100 MCG Tablet TAKE 1 [...] TAKE 1 TABLET BY MOUTH DAILY Oral Medication List reviewed and reconciled with the patient * Allergies: A moxicillin: hivesSulfamethoxazole-Trimethoprim: hivesPenicillintraMADolNo Known Food Allergyno[Allergies Verified] Objective: * Vitals: H t: 63, Wt:133, BMI:23.56, Ht-cm: 160.02, Wt-k.33. * Examination: G eneral Examination: GENERAL APPEARANCE: W ell-developed woman very anxious cheerful complaining of severe pain in her neck walking was difficulty. HEAD: a traumatic, normocephalic. EYES: e yeny, perrla, anicteric, conjugate. EARS: n ormal. NOSE: s eptum intact. ORAL CAVITY: n ormal, unremarkable. NECK/THYROID: n o jugular venous distention, no carotid bruit, thyroid normal, There was no pain to range of motion of the neck, Severe pain to percussion of C7. LYMPH NODES: n o enlarged lymph nodes,spleen normal. SKIN: n o suspicious lesions, anicteric. HEART: n o clicks, gallops, murmurs, or rubs, irregular rhythm, S1, S2 normal, no s3, or vascular bruits. LUNGS: c lear to auscultation . BREASTS: N ot examined. ABDOMEN: b owel sounds normal, no ascites, no organomegaly, no mass, Radiation markings, no palpable tumor. RECTAL EXAM: n ot examined. MUSCULOSKELETAL: e xtremities unremarkable, no clubbing, cyanosis or edema. PERIPHERAL PULSES: n ormal. NEUROLOGIC: a lert and oriented, cranial nerves 2-12 grossly intact, deep tendon reflexes 2+ symmetrical, motor strength normal upper and lower extremities, sensory exam intact, Antalgic gait, in severe discomfort. PSYCH: a lert, oriented. Assessment: * Assessment: 1. N flaco pain - M54.2 (Primary) N otes :During the radiation He currently painful area of her neck rested directly upon t he edge of the radiation block. The radiation was completed late last week and the pain began yesterday. Review of the images done today shows severe disc disease between C5 and C6 but no obvious compression fracture. The bones are demineralized. 2 . C ompression fracture of L2 vertebra with routine healing, subsequent encounter - S32.020D 3 . W edge compression fracture of T11 vertebra - S22.080A N otes :Her pain has become minimally but it can be reproduced with percussion. No change in her regimen is needed. 4 . F ormer smoker - Z87.891 N otes :She is highly motivated not to smoke. We have discussed strategies for maintenance of abstinence in times of stress and illness. 5 . P ancreatic mass - K86.9 N otes [...] need to have surgery on the pancreas. 6 . M arginal zone lymphoma - C85.80 N otes :There was no enlargement of the salivary gland or adenopathy or splenomegaly. She continues in a durable remission 7 . H odgkins disease - C81.90 N otes :There is no adenopathy. She continues in a durable remission. 8 . I nvasive ductal carcinoma of right breast - C50.911 N otes :The mastectomy site is free of any sign of relapse. The left breast is unremarkable. 9 . S joegren syndrome - M35.00 N otes :This problem is well controlled with oral medication. 1 0. P soriasis - L40.9 N otes :Her psoriasis is very mild and does not require treatment at this time. 1 1. H yperlipidemia type II - E78.0 N otes :Her lipids have been well controlled. Her fasting lipid profile will be ordered periodically. No change in her regimen was needed today. 1 2. S /P TAVR (transcatheter aortic valve replacement) - Z95.2 ?Notes :Her valve continues to work appropriately. No murmurs heard. 1 3. C hronic congestive heart failure, unspecified heart failure type - I50.9? Notes :Her CHF is now well compensated and she is compliant with her medications. Cardiology follow-up has been arranged. 1 4. A trial fibrillation, unspecified - I48.91 N otes :Her heart rate is well controlled today on no change in her regimen was made. 1 5. M alignant neoplasm of body of stomach - C16.2 N otes :She has completed her radiation and will begin chemotherapy. She has opted out of surgery. She is feeling very tired and nauseous and has pain with swallowing from the radiation. Be followed carefully. She is also being followed by radiation oncology and medical oncology at [facility]. 1 6. H ypothyroid - E03.9 N otes :Her TSH has been slightly elevated. If it remains this way on repeat her dose will be adjusted. 1 7. O steopenia after menopause - M81.0 N otes :She will have periodic bone densities. I recommended Os-Samy 500 mg twice a day. The thousand units of vitamin D daily. She will be evaluated periodically for alendronate. 1 8. N onrheumatic aortic valve stenosis - I35.0 N otes :Her exercise tolerance is improved and she has no long-term side effects from repair of the aortic valve. He is under the care of the linux server administrator and compliant with her therapies. 1 9. A nticoagulated - Z79.01 N otes :. There is no contraindication to this patient remaining on anticoagulation during the procedure. I have spoken to the surgical garment assembler at the ophthalmologists office. They do not require the anticoagulation to be held. Plan: * Treatment: 2. C ompression fracture of L2 vertebra with routine healing, subsequent encounter I maging: XR CERVICAL SPINE 2-3 VIEWS I maging: XR thoracic spine 3V (Performed Date - 02/10/2025) 3. O thers Start Morphine Sulfate Tablet, 15 MG, 1 tablet as needed, Orally, every 12 hrs, 10 days, 20 Tablet, Refills 0, Notes to Pharmacist: Partial Fill upon Patient Request. * Procedure Codes: * Preventive Medicine: Counseling: S moking/Tobacco Use Patient counseled on the dangers of tobacco use and urged to quit. 1 * Follow Up: 2 - 3 Days (Reason: ov) * Images: * Sign off status: Completed true * Provider: Trinidad Cote MD Date: 1 Generated for Yoan moise/Kris/Chrisitting on: 1 06/09/2024 07:32 AM EST History and Physical Notes * HPI (History of Present Illness) Category Sub-Category Detail Notes COVID-19 Screening Questions Have you had any new onset fever, chills, cough, congestion, sore throat, shortness of breath, muscle aches?: No Examination Category Sub-Category Detail Notes General Examination GENERAL APPEARANCE: Well-dev eloped woman very anxious cheerful complaining of severe pain in her neck walking was difficulty HEAD: atraumatic, normocep halic EYES: eomi, perrla, anicte beto, conjugate EARS: normal NOSE: septum intact NECK/THYROID: no jugular venous di stention, no carotid bruit, thyroid normal, There was no pain to range of motion of the neck, Severe pain to percussion of C7 HEART: no clicks, gallops, murmurs, or rubs, irregular rhythm, S1, S2 normal, no s3, or vascular bruits LUNGS: clear to auscultatio n ABDOMEN: bowel sounds normal, no ascites, no organomegaly, no mass, Radiation markings, no palpable tumor NEUROLOGIC: alert and oriented, cranial nerves 2-12 grossly intact, deep tendon reflexes 2+ symmetrical, motor strength normal upper and lower extremities, sensory exam intact, Antalgic gait, in severe discomfort SKIN: no suspicious lesion s, anicteric PERIPHERAL PULSES: normal BREASTS: Not examined MUSCULOSKELETAL: extremities unremark able, no clubbing, cyanosis or edema LYMPH NODES: no enlarged lymph no maureen,spleen normal RECTAL EXAM: not examined PSYCH: alert, oriented ORAL CAVITY: normal, unremarkable
--- OUTSIDE RECORDS SUMMARY | 2025-02-16 05:20 | XMS_ITS ---
Author Organization Demetrius Cote III, MD Address [address] [place] [address] [place] [address] Care Team Providers Care Shell Machine Operator Name Role Phone Dr. Demetrius Cote III Primary Care Provider REASON FOR VISIT Regarding Neck Social History Sex Assigned At : Social History Observation Description Sex Assigned At Female Encounters Encounter Location Date Provider Diagnosis Demetrius Cote III, MD [address] [place] [address] [place] [address] 02/16/2025 Demetrius Cote Plan Of Treatment Next Appt Details Provider Name:Demetrius Cote , 04/19/2025 10:30:00 AM, [address] [place] [address] [place], [phone], Provider Name:Demetrius Cote , 11/30/2025 09:30:00 AM, [address] [place] [address] [place], [phone], Progress Notes * Kayla CHEUNGDOB:[birth year] (79 yo F)Acc No.[id number]:02/16/2025 Patient: Kayla TORRES :1945 A ge:79 Y S ex:Female [address] [facility] [facility] [place] [address] * true * Date: Generated for Printi ng/Faxing/eTransmitting on: 1 06/09/2024 07:32 AM EST
--- OUTSIDE RECORDS SUMMARY | 2025-02-26 06:15 | XMS_ITS ---
Author Organization Demetrius Cote III, MD Address [address] [place] [address] Care Team Providers Care Core Shaper Sides Name Role Phone Dr. Demetrius Cote III [...] Drug Allergy Act anmol REASON FOR VISIT Cervical radiculopathy, Gastric cancer, Invasive ductal carcinoma of the right breast, Marginal zone lymphoma, Multiple spine compression fractures, Obesity, Sjogren's syndrome, Atrial fibrillation, Hypothyroid, Creatinine mass, Repair of aortic stenosis, Congestive heart failure Medications Medication SIG (Take, Route, Frequency, Duration) Notes Start Date End Date Status FeroSul 325 (65 Fe) MG TAKE 1 TABLET BY MOUTH EVERY DAY Active levoFLOXacin 500 MG 1 tablet Orally Once a day 09/10/2023 Active Melatonin 1 MG 1 tablet at bedtime as needed Orally Once a day Active Aspirin 81 81 MG 1 tablet Orally Once a day Active Eliquis 5 MG 1 tablet Orally Twic e a day Active dexAMETHasone 2 MG 1 tablet Orally twic e a day 06/23/2024 Active traZODone HCl 150 MG TAKE 1 TABLET BY MO [facility] EVERY NIGHT AT BEDTIME Active Metoprolol Tartrate 25 MG TAKE 1 TABLET 2 TIMES DAILYWITH FOOD Active Calcium Carbonate 1500 (600 Ca) MG 1 tablet with food Orally Twice a day Active Gabapentin 300 MG 1 capsule Orally thr ee times a day 06/23/2024 Active Levothyroxine Sodium 100 MCG TAKE 1 TABLET DAILY Active Simvastatin 40 MG TAKE 1 TABLET EVERY EVENING Active Alendronate Sodium 70 MG TAKE 1 TABLET B Y MOUTH 1 TIME A WEEK 30 MINUTES BEFORE FIRST FOOD OR BEVERAGE OR MEDICINE OF THE DAY WITH WATER Active Furosemide 20 MG TAKE 1 TABLET [...] Problem Status W/U Status Risk Notes Problem [id number] Cervical radiculopathy (M54.12) Active confirmed Surgery has agreed to surgery on the neck. We are waiting for a monitored MRI 8 because of the presence of a pacemaker. Vital Signs Temperature 98.6 degrees Fahrenheit 02/27/20 25 Blood pressure systolic 139 mm Hg 02/27/20 25 Blood pressure diastolic 71 mm Hg 025 Heart Rate 88 /min 02/26/2025 Height 63 in 02/26/2025 Weight 134 lbs 02/26/2025 BMI 23.73 kg/m2 02/26/2025 Encounters Encounter Location Date Provider Diagnosis Demetrius Cote III, MD [address] [place] [address] [place] [address] 02/26/2025 Demetrius Cote Former smoker Z87.89 1 ; Cervical radiculopathy M54.12 ; Compression fracture of L2 vertebra, initial encounter S32.020A ; 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 ; Sicca syndrome, unspecified M35.00 ; Anticoagulated Z79.01 ; Nonrheumatic aortic valve stenosis I35.0 ; Hypothyroid E03.9 ; Psoriasis L40.9 and Wedge compression fracture of T11 vertebra S22.080A Assessments Encounter Date Diagnosis (ICD Code) Assessment Notes T reatment Notes Treatment Clinical Notes 02/26/2025 Former smoker (ICD-10 - Z87.891) She is highly motivated not to smoke. We have discussed strategies for maintenance of abstinence in times of stress and illness. 02/26/2025 Cervical radiculopathy (ICD-10 - M54.12) He remains in severe pain. She is going to see neurosurgery this afternoon. She has a supply of morphine if she needs it. It is likely an MRI will be scheduled. 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 She is going to arrange for resection with the surgeon next week.Currently undergoing staging. 02/26/2025 Sicca syndrome, unspecified (ICD-10 - M35.00) The oral dryness remains unchanged. She has been compliant with frequent visits to her dentist. 02/26/2025 Anticoagulated (ICD-10 - Z79.01) . There is no contraindication to this patient remaining on anticoagulation during the procedure. I have spoken to the surgical lead at the ophthalmologists office. They do not require the anticoagulation to be held. 02/26/2025 Nonrheumatic aortic valve stenosis (ICD-10 - I35.0) Her exercise tolerance is improved and she has no long-term side effects from repair of the aortic valve. He is under the care of the drycleaner and compliant with her therapies. 02/26/2025 Hypothyroid (ICD-10 - E03.9) Her TSH has been slightly elevated. If it remains this way on repeat her dose will be adjusted. 02/26/2025 Psoriasis (ICD-10 - L40.9) Her psoriasis is very mild and does not require treatment at this time. 02/26/2025 Wedge compression fracture of T11 vertebra (ICD-10 - S22.080A) Her pain has become minimally but it can be reproduced with percussion. No change in her regimen is needed. Plan Of Treatment Medication Medication Name Sig Start Date Stop Date Notes FeroSul 325 (65 Fe) MG TAKE 1 TABLET BY MOUTH EVERY DAY levoFLOXacin 500 MG 1 tablet Orally Once a day 09/10/2023 Melatonin 1 MG 1 tablet at bedtime as needed Orally Once a day Aspirin 81 81 MG 1 tablet Orally Once a day Eliquis 5 MG 1 tablet Orally Twice a day dexAMETHasone 2 MG 1 tablet Orally twice a day 06/23/2024 traZODone HCl 150 MG TAKE 1 TABLET BY MO [facility] EVERY NIGHT AT BEDTIME Metoprolol Tartrate 25 MG TAKE 1 TABLET 2 TIMES DAILYWITH FOOD Calcium Carbonate 1500 (600 Ca) MG 1 tablet with food Orally Twice a day Gabapentin 300 MG 1 capsule Orally thr ee times a day 06/23/2024 Levothyroxine Sodium 100 MCG TAKE 1 TABLET DAILY Simvastatin 40 MG TAKE 1 TABLET EVERY EVENING Alendronate Sodium 70 MG TAKE 1 TABLET B Y MOUTH 1 TIME A WEEK 30 MINUTES BEFORE FIRST FOOD OR BEVERAGE OR MEDICINE OF THE DAY WITH WATER Furosemide 20 MG TAKE 1 TABLET BY JOSÉ TH EVERY OTHER DAY Oral Amiodarone HCl 200 MG TAKE 2 TABLETS BY MOUTH TWICE DAILY FOR 12 DAYS THEN TAKE 1 TABLET BY MOUTH DAILY Oral D3-1000 25 MCG (1000 UT) 1 capsule Orally Once a day Next Appt Details Follow Up: 2 Weeks, Reason: OV Provider Name:Demetrius Cote , 04/19/2025 10:30:00 AM, [address] [place] [address] [address], [place], [address], Provider Name:Demetrius Cote , 11/30/2025 09:30:00 AM, [address] [place] [address] [address], [place], [address], Progress Notes * Kayla CHEUNGDOB:[birth year] (79 yo F)Acc No.[id number]:02/26/2025 Progress Notes Patient: Kayla TORRES Provider: Trinidad Cote MD :1945 A ge:79 Y S ex:Female Date:02/26/2025 Address:[address] [place] [phone] Subjective: * Chief Complaints: * C ervical radiculopathyGastric cancerInvasive ductal carcinoma of the right breastMarginal zone lymphomaMultiple spine compression fracturesObesitySjogren's syndromeAtrial fibrillationHypothyroidCreatinine massRepair of aortic stenosisCongestive heart failure * HPI: C OVID-19 Screening: She returns to the office for further management of the severe new onset neck pain. She reports that when she was lying down on the table to receive the radiation therapy was a recently diagnosed cancer of the stomach that her neck breast on a frame and resulted in severe neck pain. She rreports 10 out of 10 pain when she moves her neck on either side. Plain films of the neck have shown significant loss of disc space in the lower cervical spine. She has an appointment this afternoon with Dr. Romano, her neurosurgeon to discuss this. I have given her a supply of morphine tablets. She finds that she does not receive relief and has significant side effects from codeine oxycodone and tramadol. Is taking only a couple of these tablets for severe pain mostly at night to help her sleep. There was no sign of progression of the marginal zone lymphoma today.Her vital signs are stable and her body mass index is 23. 3 small meals. Questions H ave you had any new onset fever, chills, cough, congestion, sore throat, shortness of breath, muscle aches? N o * ROS: G eneral/Constitutional: pain 1 0 out of 10 neck pain, chronic thoracolumbar spine..?Chills d enies. F atigue a dmits. F ever d enies. E NT: Decreased hearing d enies. R espiratory: Cough d enies. C ardiovascular: Chest pain with exertion d enies. D yspnea on exertion?with prolonged activity. S hortness of breath t hat is mild. G astrointestinal: Constipation o ccasional. D ecreased appetite t hat is associated with weight loss. D iarrhea d enies. H eartburn d enies. N ausea?denies. R ectal bleeding d enies. V omiting [...] hat is chronic. P sychiatric: Depressed mood d enies. * Medical History: * Surgical History: p acermaker insertion 10/2011kyphoplasty 10/2014, 09/2017Mastectomy right breast 11/08/2014battery replacement in pacemaker 02/2020endoscopy at [facility] 01/2020Aorta Catherization atheter ablation by Dr Hector Thorne at [facility] [place] 09/2023Liver Bx 11/23/24Spleen removed jorens 2000 * [...] for many years. She was born in [place], [place]. The patient lives with her daughter. [...] Verified] Objective: * Vitals: H t: 63, Wt:134, BMI:23.73, BP:139/71, HR:88, Temp:98.6, Ht-cm: 160.02, Wt-k.78. * Examination: G eneral Examination: GENERAL APPEARANCE: p leasant, well nourished, well developed, Elderly woman in moderate pain with motion. HEAD: a traumatic, normocephalic. EYES: e yeny, perrla, anicteric, conjugate. EARS: n ormal. NOSE: s eptum intact. ORAL CAVITY: D rains dry. NECK/THYROID: n o jugular venous distention, no carotid bruit, thyroid normal, Severe pain with range of motion of the neck in any direction. LYMPH NODES: n o enlarged lymph nodes,spleen normal. SKIN: n o suspicious lesions, anicteric. HEART: n o clicks, gallops, murmurs, or rubs, regular rhythm, S1, S2 normal, no s3, or vascular bruits. LUNGS: c lear to auscultation . BREASTS: no masses palpable bilaterally. ABDOMEN: b owel sounds normal, no ascites, no organomegaly, no mass. RECTAL EXAM: n ot examined. MUSCULOSKELETAL: S evere pain to range of motion. PERIPHERAL PULSES: n ormal. NEUROLOGIC: a lert and oriented, cranial nerves 2-12 grossly intact, deep tendon reflexes 2+ symmetrical, motor strength normal upper and lower extremities, sensory exam intact. PSYCH: a lert, oriented: mood depressed: anxious appearing.? Assessment: * Assessment: 1. C ervical radiculopathy - M54.12 (Primary) N otes :He remains in severe pain. She is going to see neurosurgery this afternoon. She has a supply of morphine if she needs it. It is likely an MRI will be scheduled. 2 . F ormer smoker - Z87.891 N otes :She is highly motivated not to smoke. We have discussed strategies for maintenance of abstinence in times of stress and illness. 3 . C ompression fracture of L2 vertebra, initial encounter - S32.020A ? N otes :She is being referred to endocrinology and interventional radiology for vertebroplasty all 4 . E seferino gastric cancer - C16.9 N otes :This was an incidental finding on upper endoscopy done and a biopsy a cystic pancreatic mass. She is going to arrange for resection with the surgeon next week.Currently undergoing staging. 5 . S icca syndrome, unspecified - M35.00 N otes :The oral dryness remains unchanged. She has been compliant with frequent visits to her dentist. 6 . A nticoagulated - Z79.01 N otes :. There is no contraindication to this patient remaining on anticoagulation during the procedure. I have spoken to the surgical lead at the ophthalmologists office. They do not require the anticoagulation to be held. 7 . N onrheumatic aortic valve stenosis - I35.0 N otes :Her exercise tolerance is improved and she has no long-term side effects from repair of the aortic valve. He is under the care of the drycleaner and compliant with her therapies. 8 . H ypothyroid - E03.9 N otes :Her TSH has been slightly elevated. If it remains this way on repeat her dose will be adjusted. 9 . P soriasis - L40.9 N otes :Her psoriasis is very mild and does not require treatment at this time. 1 0. W edge compression fracture of T11 vertebra - S22.080A N otes :Her pain has become minimally but it can be reproduced with percussion. No change in her regimen is needed. Plan: * Treatment: * Procedure Codes: * Preventive Medicine: Counseling: S moking/Tobacco Use Patient counseled on the dangers of tobacco use and urged to quit. 1 * Follow Up: 2 Weeks (Reason: OV) * Images: * Sign off status: Completed true * Provider: Trinidad Cote MD Date: Generated for Yoan moise/Kris/Jhonnysmitting on: 06/09/2024 07:34 AM EST History and Physical Notes * HPI (History of Present Illness) Category Sub-Category Detail Notes COVID-19 Screening Questions Have you had any new onset fever, chills, cough, congestion, sore throat, shortness of breath, muscle aches?: No Examination Category Sub-Category Detail Notes General Examination GENERAL APPEARANCE: pleasant , well nourished, well developed, Elderly woman in moderate pain with motion HEAD: atraumatic, normocep halic EYES: eomi, perrla, anicte beto, conjugate EARS: normal NOSE: septum intact NECK/THYROID: no jugular venous di stention, no carotid bruit, thyroid normal, Severe pain with range of motion of the neck in any direction HEART: no clicks, gallops, murmurs, or rubs, regular rhythm, S1, S2 normal, no s3, or vascular bruits LUNGS: clear to auscultatio n ABDOMEN: bowel sounds normal, no ascites, no organomegaly, no mass NEUROLOGIC: alert and oriented, cranial nerves 2-12 grossly intact, deep tendon reflexes 2+ symmetrical, motor strength normal upper and lower extremities, sensory exam intact SKIN: no suspicious lesion s, anicteric PERIPHERAL PULSES: normal BREASTS: no masses palpable b ilaterally MUSCULOSKELETAL: Severe pain to range of motion LYMPH NODES: no enlarged lymph no maureen,spleen normal RECTAL EXAM: not examined PSYCH: alert, oriented: moo d depressed: anxious appearing ORAL CAVITY: Drains dry
--- OUTSIDE RECORDS SUMMARY | 2025-03-01 05:52 | XMS_ITS ---
Author Organization Demetrius Cote III, MD Address [address] [place] [address] Care Team Providers Care Bundle Tier And Labeler Name Role Phone Dr. Demetrius Cote III Primary Care Provider REASON FOR VISIT told patient to call Social History Sex Assigned At : Social History Observation Description Sex Assigned At Female Encounters Encounter Location Date Provider Diagnosis Demetrius Cote III, MD [address] [place] [address] [place] [address] 03/01/2025 Demetrius Cote Plan Of Treatment Next Appt Details Provider Name:Demetrius Cote , 04/19/2025 10:30:00 AM, [address] [place] [address] [place], [phone], Provider Name:Demetrius Cote , 11/30/2025 09:30:00 AM, [address] [place] [address] [place], [address], Progress Notes * Kayla CHEUNGDOB:[birth year] (79 yo F)Acc No.[id number]:03/01/2025 Patient: Kayla TORRES :1945 A ge:79 Y S ex:Female Address:[address] [place] [phone] * true * Date: Generated for Printi ng/Faxing/eTransmitting on: 06/09/2024 07:33 AM EST
--- OUTSIDE RECORDS SUMMARY | 2025-03-04 05:54 | XMS_ITS ---
Author Organization Demetrius Cote III, MD Address [address] [place] [address] Care Team Providers Care Inseam Trimming Machine Operator Name Role Phone Dr. Demetrius Cote III Primary Care Provider [phone] REASON FOR VISIT told patient to call Social History Sex Assigned At : Social History Observation Description Sex Assigned At Female Encounters Encounter Location Date Provider Diagnosis Demetrius Cote III, MD [address] [place] [address] [place] [phone] 03/04/2025 Demetrius Cote Plan Of Treatment Next Appt Details Provider Name:Demetrius Cote , 04/19/2025 10:30:00 AM, [address] [place] [address] [place], [phone], Provider Name:Demetrius Cote , 11/30/2025 09:30:00 AM, [address] [place] [address] [place], [phone], Progress Notes * Kayla CHEUNGDOB:[birth year] (79 yo F)Acc No.[id number]:03/04/2025 Patient: Kayla TORRES :1945 A ge:79 Y S ex:Female Address:[address] [place] [phone] * true * Date: Generated for Printi ng/Faxing/eTransmitting on: 06/09/2024 07:33 AM EST
--- OUTSIDE RECORDS SUMMARY | 2025-03-11 05:45 | XMS_ITS ---
Author Organization Demetrius Cote III, MD Address [address] [place] [address] Care Team Providers Care Teradata Solution Architect Name Role Phone Dr. Demetrius Cote III Primary Care Provider [phone] Allergies Allergen (clinical drug ingredient) Drug/Non Drug Allergy documented on EMR Reaction Allergy Type Onset Date Status Penicillin Unknown Drug Allergy Active tramadol traMADol Unknown Drug Allergy Active No Known Food Allergy Unknown Drug Allergy Active sulfamethoxazole / trimethoprim Sulfamethoxazole-Tri methoprim hives Drug Allergy Active amoxicillin Amoxicillin hives Drug Allergy Act anmol REASON FOR VISIT Cervical radiculopathy, Breast cancer, Marginal zone lymphoma, Gastric cancer, Multiple compressionfractures thoracolumbar spine, Pancreatic mass, Repaired aortic stenosis Medications Medication SIG (Take, Route, Frequency, Duration) Notes Start Date End Date Status dexAMETHasone 2 MG 1 tablet Orally twice a day 06/23/2024 Active Melatonin 1 MG 1 tablet at [...] Orally three times a day 06/23/2024 Active traZODone HCl 150 MG TAKE 1 TABLET BY MOUTH EVERY NIGHT AT BEDTIME Active Metoprolol Tartrate 25 MG TAKE 1 TABLET 2 TIMES DAILYWITH FOOD Active Alendronate Sodium 70 MG TAKE 1 TABLET BY MOUTH 1 TIME A WEEK 30 MINUTES BEFORE FIRST FOOD OR BEVERAGE OR MEDICINE OF THE DAY WITH WATER Active Morphine Sulfate 15 MG 1 tablet if neede d Orally every 12 hours i for 10 days Partial Fill upon Patient Request 03/11/2025 03/21/2025 Active Levothyroxine Sodium 100 MCG TAKE 1 [...] 1 tablet Orally Twice a day Active D3-1000 25 MCG (1000 UT) 1 capsule Orally Once a day Active Social History Tobacco [...] non-user Ex-cigaret te smoker Vital Signs Temperature 97.3 degrees Fahrenheit 03/11/20 25 Blood pressure systolic 134 mm Hg 03/11/20 25 Blood pressure diastolic 72 mm Hg 025 Heart Rate 87 /min 03/11/2025 Height 63 in 03/11/2025 Weight 137 lbs 03/11/2025 BMI 24.27 kg/m2 03/11/2025 Encounters Encounter Location Date Provider Diagnosis Demetrius Cote III, MD [address] [place] [address] [address] [facility] [place] [address] 03/11/2025 Demetrius Cote Former smoker Z87.89 1 ; Cervical radiculopathy M54.12 ; 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 ; Hodgkins disease C81.90 ; Pancreatic mass K86.9 ; Hypothyroid E03.9 ; Atrial fibrillation I48.91 ; Sjoegren syndrome M35.00 ; 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 ; 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 and Compression fracture of L2 vertebra with routine healing, subsequent encounter S32.020D Assessments Encounter Date Diagnosis (ICD Code) Assessment Notes Treat ment Notes Treatment Clinical Notes 03/11/2025 Former smoker (ICD-10 - Z87.891) She is highly motivated not to smoke. We have discussed strategies for maintenance of abstinence in times of stress and illness. 03/11/2025 Cervical radiculopathy (ICD-10 - M54.12) Surgery has agreed to surgery on the neck. We are waiting for a monitored MRI 8 because of the presence of a pacemaker. 03/11/2025 Invasive ductal carcinoma of right breast (ICD-10 - C50.911) The mastectomy site is free of any sign of relapse. The left breast is unremarkable. 03/11/2025 Hodgkins disease (ICD-10 - C81.90) There is no adenopathy. She continues in a durable remission. 03/11/2025 Pancreatic mass (ICD-10 - K86.9) The CA-19-9 [...] need to have surgery on the pancreas. 03/11/2025 Hypothyroid (ICD-10 - E03.9) Her TSH has been slightly elevated. If it remains this way on repeat her dose will be adjusted. 03/11/2025 Atrial fibrillation (ICD-10 - I48.91) She has been well controlled lately. She has been compliant with all of her medications. She was in a regular rhythm today 03/11/2025 Sjoegren syndrome (ICD-10 - M35.00) This problem is well controlled with oral medication. 03/11/2025 Right knee DJD (ICD-10 - M17.9) The pain in her right knee is mild to moderate and unchanged. No change in her regimen was needed. 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 She decided against surgery. She has had chemotherapy and radiation. 03/11/2025 Compression fracture of L2 vertebra with routine healing, subsequent encounter (ICD-10 - S32.020D) On July 20, 2024 at [facility] she underwent kyphoplasty for an L2 compression fracture. Over the last 2 weeks she has developed severe pain in her lumbar spine a radiates down her right leg into her knee. I have Given her tramadol 50 mg every 8 hours with a followup visit in 48 hours.I have referred her to pain management. Further imaging and neurosurgery may be necessary. Plan Of Treatment Medication Medication Name Sig Start Date Stop Date Notes dexAMETHasone 2 MG 1 tablet Orally twice a day 06/23/2024 Melatonin 1 MG 1 tablet at bedtime [...] day Gabapentin 300 MG 1 capsule Orally three times a day 06/23/2024 traZODone HCl 150 MG TAKE 1 TABLET BY MOUTH EVERY NIGHT AT BEDTIME Metoprolol Tartrate 25 MG TAKE 1 TABLET 2 TIMES DAILYWITH FOOD Alendronate Sodium 70 MG TAKE 1 TABLET B Y MOUTH 1 TIME A WEEK 30 MINUTES BEFORE FIRST FOOD OR BEVERAGE OR MEDICINE OF THE DAY WITH WATER Morphine Sulfate 15 MG 1 tablet if neede d Orally every 12 hours i for 10 days 03/11/2025 03/21/2025 Partial Fill upon Patient Request Levothyroxine Sodium 100 MCG TAKE 1 TABLET DAILY Furosemide 20 MG TAKE 1 TABLET BY MOUTH EVERY OTHER DAY Oral Amiodarone HCl 200 MG TAKE 2 TABLETS BY MOUTH TWICE DAILY FOR 12 DAYS THEN TAKE 1 TABLET BY MOUTH DAILY Oral Simvastatin 40 MG TAKE 1 TABLET EVERY EVENING Eliquis 5 MG 1 tablet Orally Twice a day D3-1000 25 MCG (1000 UT) 1 capsule Orall y Once a day Next Appt Details Follow Up: 4 Weeks, Reason: OV Provider Name:Demetrius Cote , 04/19/2025 10:30:00 AM, [address] [place] [address] [address], [place], [address], Provider Name:Demetrius Cote , 11/30/2025 09:30:00 AM, [address] [place] [address] [address], [place], [address], Progress Notes * Ligia CHEUNGhudsonDOB:[birth year] (79 yo F)Acc No.[id number]:03/11/2025 Progress Notes Patient: Kayla TORRES Provider: Trinidad Cote MD :1945 A ge:79 Y S ex:Female Date:03/11/2025 Address:[address] [place], [place] [id number] Subjective: * Chief Complaints: * C ervical radiculopathyBreast cancerMarginal zone lymphomaGastric cancerMultiple compression fractures thoracolumbar spinePancreatic massRepaired aortic stenosis * HPI: C OVID-19 Screening: She returns for medical management of numerous issues. Her main problem now is severe pain in the neck from disc space narrowing. The neurosurgeon has agreed to operate but an MRI has been requested and a promotions representative most monitor the MRI because she has a pacemaker. I have refilled her supply of morphine 15 mg tablets as she has only 4 left. This was originally filled in December. She is reluctant to take pain medication and we have discussed this issue. Her examination showed no sign of muscle weakness but she does have pain with range of motion of the neck. Questions H ave you had any new onset fever, chills, cough, congestion, sore throat, shortness of breath, muscle aches? N o * ROS: G eneral/Constitutional: pain N flaco with movement. C hills d enies. F atigue a dmits. F ever d enies. E NT: Decreased hearing d enies. R espiratory: Cough d enies. C ardiovascular: Chest pain with exertion d enies. D yspnea on exertion?with moderate activity. S hortness of breath w ith exertion. G astrointestinal: Constipation W hen she takes narcotic analgesics. D ecreased appetite d enies. D iarrhea d enies. H eartburn d enies. N ausea d enies. R ectal bleeding d enies. V omiting d enies. H ematology: bruising d enies. p etechiae d enies. S wollen glands n one have been noted. G enitourinary: Frequent urination d enies. M usculoskeletal: Muscle aches d enies. P ainful joints C ervical spine. S ciatica d enies. W eakness d [...] breast 11/08/2014battery replacement in pacemaker 02/2020endoscopy at [facility] 01/2020Aorta Catherization atheter ablation by Dr Hector Thorne at [facility] 09/2023Liver Bx 11/23/24Spleen removed [id number] * Hospitalization/Major Diagno stic Procedure: M ultiple * Family History: F ather: 77 yrs, [...] for many years. She was born in [place], [place]. The patient lives with her daughter. [...] tablet with food Orally Twice a day Melatonin 1 MG Tablet 1 tablet at bedtime as needed Orally Once a day Aspirin 81 81 MG Tablet Delayed Release 1 tablet Orally Once a day Eliquis 5 MG Tablet 1 tablet Orally Twice a day D3-1000 25 MCG (1000 UT) Capsule 1 capsule Orally Once a day Taking Levothyroxine Sodium 100 MCG Tablet TAKE [...] with food Orally Twice a day Taking Melatonin 1 MG Tablet 1 tablet at bedtime as needed Orally Once a day Taking Aspirin 81 81 MG Tablet Delayed Release 1 tablet Orally Once a day Taking Eliquis 5 MG Tablet 1 tablet Orally Twice a day Taking D3-1000 25 MCG (1000 UT) Capsule 1 capsule Orally Once a day Not-Taking/PRNGabapentin 300 MG Capsule 1 capsule Orally three times a day dexAMETHasone 2 MG Tablet 1 tablet Orally twice a day FeroSul 325 (65 Fe) MG Tablet TAKE 1 TABLET BY MOUTH EVERY DAY levoFLOXacin 500 MG Tablet 1 tablet Orally Once a day Furosemide 20 MG Tablet TAKE 1 TABLET BY MOUTH EVERY OTHER DAY Oral Amiodarone HCl 200 MG Tablet TAKE 2 TABLETS BY MOUTH TWICE DAILY FOR 12 DAYS THEN TAKE 1 TABLET BY MOUTH DAILY Oral Medication List reviewed and reconciled with the patientNot-Taking/PRN Gabapentin 300 MG Capsule 1 capsule Orally three times a day Not-Taking/PRN dexAMETHasone 2 MG Tablet 1 tablet Orally twice a day Not-Taking/PRN FeroSul 325 (65 Fe) MG Tablet TAKE 1 TABLET BY MOUTH EVERY DAY Not-Taking/PRN levoFLOXacin 500 MG Tablet 1 tablet Orally Once a day Not- Taking/PRN Furosemide 20 MG Tablet TAKE 1 TABLET BY MOUTH EVERY OTHER DAY Oral Not- Taking/PRN Amiodarone HCl 200 MG Tablet TAKE 2 TABLETS BY MOUTH TWICE DAILY FOR 12 DAYS THEN TAKE 1 TABLET BY MOUTH DAILY Oral Medication List reviewed and reconciled with the patient * Allergies: A moxicillin: hivesSulfamethoxazole-Trimethoprim: hivesPenicillintraMADolNo Known Food Allergyno[Allergies Verified] Objective: * Vitals: H t: 63, Wt:137, BMI:24.27, BP:134/72, HR:87, Temp:97.3, Ht-cm: 160.02, Wt-k.14. * P ast Orders: I maging:XR thoracic spine 3V (Order Date - 02/10/2025) (Performed Date - 02/10/2025) I maging:XR cervical spine 3V (Order Date - 02/10/2025) (Performed Date - 02/10/2025) * Examination: G eneral Examination: GENERAL APPEARANCE: p leasant, well nourished, well developed, in no acute distress, calm and relaxed: elderly woman. HEAD: a traumatic, normocephalic. EYES: e yeny, perrla, anicteric, conjugate. EARS: n ormal. NOSE: s eptum intact. ORAL CAVITY: n ormal, unremarkable. NECK/THYROID: n o jugular venous distention, no carotid bruit, thyroid normal, Limited range of motion, pain with range of motion. LYMPH NODES: n o enlarged lymph nodes,spleen normal. SKIN: n o suspicious lesions, anicteric. HEART: n o clicks, gallops, murmurs, or rubs, regular rhythm, S1, S2 normal, no s3, or vascular bruits. LUNGS: c lear to auscultation . BREASTS: R ight mastectomy well healed with no sign of relapse, left breast has no masses, healed incision. ABDOMEN: b owel sounds normal, no ascites, no organomegaly, no mass. RECTAL EXAM: n ot examined. MUSCULOSKELETAL: e xtremities unremarkable, no clubbing, cyanosis or edema. PERIPHERAL PULSES: n ormal. NEUROLOGIC: a lert and oriented, cranial nerves 2-12 grossly intact, deep tendon reflexes 2+ symmetrical, motor strength normal upper and lower extremities, sensory exam intact. PSYCH: a lert, oriented. Assessment: * Assessment: 1. C ervical radiculopathy - M54.12 (Primary) N otes :Surgery has agreed to surgery on the neck. We are waiting for a monitored MRI 8 because of the presence of a pacemaker. 2 . F ormer smoker - Z87.891 N otes :She is highly motivated not to smoke. We have discussed strategies for maintenance of abstinence in times of stress and illness. 3 . I nvasive ductal carcinoma of right breast - C50.911 N otes :The mastectomy site is free of any sign of relapse. The left breast is unremarkable. 4 . H odgkins disease - C81.90 N otes :There is no adenopathy. She continues in a durable remission. 5 . P ancreatic mass - K86.9 [...] have surgery on the pancreas. 6 . H ypothyroid - E03.9 N otes :Her TSH has been slightly elevated. If it remains this way on repeat her dose will be adjusted. 7 . A trial fibrillation - I48.91 N otes :She has been well controlled lately. She has been compliant with all of her medications. She was in a regular rhythm today 8 . S joegren syndrome - M35.00 N otes :This problem is well controlled with oral medication. 9 . R ight knee DJD - M17.9 N otes :The pain in her right knee is mild to moderate and unchanged. No change in her regimen was needed. 1 0. E seferino gastric cancer - C16.9 N otes :This was an incidental finding on upper endoscopy done and a biopsy a cystic pancreatic mass. She decided against surgery. She has had chemotherapy and radiation. 1 1. C ompression fracture of L2 vertebra with routine healing, subsequent encounter - S32.020D N otes :On July 20, 2024 at [facility] she underwent kyphoplasty for an L2 compression fracture. Over the last 2 weeks she has developed severe pain in her lumbar spine a radiates down her right leg into her knee. I have Given her tramadol 50 mg every 8 hours with a followup visit in 48 hours.I have referred her to pain management. Further imaging and neurosurgery may be necessary. Plan: * Treatment: * Procedure Codes: * Preventive Medicine: Counseling: S moking/Tobacco Use Patient counseled on the dangers of tobacco use and urged to quit. 1 05/18/2024 * Follow Up: 4 Weeks (Reason: OV) * Images: * Sign off status: Completed true * Provider: Trinidad Cote MD Date: 05/11/2024 Generated for Yoan moise/Kris/Lindseyransmitting on: 06/09/2024 07:33 AM EST History and Physical Notes * HPI (History of Present Illness) Category Sub-Category Detail Notes COVID-19 Screening Questions Have you had any new onset fever, chills, cough, congestion, sore throat, shortness of breath, muscle aches?: No Examination Category Sub-Category Detail Notes General Examination GENERAL APPEARANCE: pleasant , well nourished, well developed, in no acute distress, calm and relaxed: elderly woman HEAD: atraumatic, normocep halic EYES: eomi, perrla, anicte beto, conjugate EARS: normal NOSE: septum intact NECK/THYROID: no jugular venous di stention, no carotid bruit, thyroid normal, Limited range of motion, pain with range of motion HEART: no clicks, gallops, murmurs, or rubs, [...] lesion s, anicteric PERIPHERAL PULSES: normal BREASTS: Right mastectomy wel l healed with no sign of relapse, left breast has no masses, healed incision MUSCULOSKELETAL: extremities unremark able, no clubbing, cyanosis or edema LYMPH NODES: no enlarged lymph no maureen,spleen normal RECTAL EXAM: not examined PSYCH: alert, oriented ORAL CAVITY: normal, unremarkable
--- NOTE | ~2025-04-08 | MR_ITS ---
EXAMINATION: MR CERVICAL SPINE WITHOUT CONTRAST CLINICAL INFORMATION: M 55.2. Cervicalgia. Osteoporosis. COMPARISON: Correlated to x-ray dated February 10, 2025. TECHNIQUE: MRI of the cervical spine was obtained using routine sequences without contrast. FINDINGS: Craniocervical junction is intact. Normal position of the cerebellar tonsils. No bone marrow STIR signal abnormality. Marginal osteophyte formation and disc desiccation at C5-6 and to a lesser extent C4-5 and C6-7 levels. Grade 1 anterolisthesis C4-5 and C5-6 levels. 1 mm anterolisthesis C6-7 and C7-T1. Cervical spinal cord signal is normal. Questionable hyperintense T2 signal in the madiha. C2-3: No disc herniation. No neuroforamina stenosis. C3-4: Central disc osteophyte compresses formation. No central spinal canal or neuroforamina stenosis. C4-5: Broad-based disc osteophyte compresses formation. Ventral deformity of the thecal sac without cord compression. No neuroforamina stenosis. C5-6: Left-sided disc osteophyte consummation resulting in ventral deformity of the spinal cord. No cord compression. Right neuroforamina narrowing on a degenerative basis. C6-7: Broad-based disc osteophyte consummation resulting in ventral deformity of the thecal sac. No cord compression. Bilateral right greater than left neuroforamina narrowing. Bilateral small perineural cysts. C7-T1: Broad-based disc osteophyte consummation resulting in ventral deformity of the thecal sac. No cord compression. Left neuroforamina narrowing. Right vertebral cyst. No prevertebral compartment hematoma, mass or fluid collection. Flow-void signal within the mean vessels is normal. Codominant vertebral arteries. There is a 1.5 cm hyperintense T2 heterogeneous nodule in the posterior left thyroid lobe. MR/MR cervical spine wo con IMPRESSION: Multilevel cervical spondylosis pronounced at C5-6 and grade 1 anterolisthesis C4-5, C5-6 resulting in central spinal canal stenosis without cord compression, cord edema and or myelopathy at C5-6 and to a lesser extent C4-5 and C6-7 levels. Electronically signed by: Jean Kovacs MD 04/08/2025 09:11 AM EST
--- OUTSIDE RECORDS SUMMARY | 2025-04-08 07:33 | XMS_ITS | Clinical Summary ---
Author Organization [facility] Address [address] [place] [address] Care Team Providers Care Supervisor Landscape Name Role Phone Unavailable Primary Care Provider [...] - 1-dose 75+ series) 2021 COVID-19 Vaccine (2024- season) 2025
--- OUTSIDE RECORDS SUMMARY | 2025-04-08 07:34 | XMS_ITS | Patient Health Record ---
Author Organization Demetrius Cote III, MD Address [address] [place] [address] [place] [address] Care Team Providers Care Expander Name Role Phone Dr. Demetrius Cote III Primary Care Provider [phone] Allergies Allergen (clinical drug ingredient) Drug/Non Drug [...] date:02/12/2025 06:22:18 AM Interpretation: Performing Lab: Notes/Report: [address] [address] XRay Report Signed Patient: Kayla Cheung MR#: [id number] : 1945 Acct:[id number] Age/Sex: 79 / F ADM Date: 02/10/25 Loc: HO.NEETAAY Attending Dr: Demetrius Cote MD Ordering Physician: Demetrius Cote MD Date of Service: 02/10/25 Procedure(s): XR thoracic spine 3V Accession Number(s): [id number] cc: Demetrius Cote MD Reason for Exam: [...] 02/10/25 1046 DD/ 1021 TD/TT: 02/10/25 1033 [employer] [facility]: [place] [address] XRay Report Signed Patient: Rose Cheung MR#: [id number] : 1945 Acct:[id number] Age/Sex: 79 / F ADM Date: 02/10/25 Loc: PHILLIP Attending Dr: Demetrius Cote MD Ordering Physician: Demetrius Cote MD Date of Service: 02/10/25 Procedure(s): XR thoracic spine 3V Accession Number(s): [id number] cc: Demetrius Cote MD Reason for Exam: [...] 02/10/25 1046 DD/ 1021 TD/TT: 02/10/25 1033 [employer] [facility]: NM bone scan limited area Reviewed date:07/09/2024 08:39:37 PM Interpretation: Performing Lab: Notes/Report: [address] [address] Nuclear Medicine Report Signed Patient: Kayla Cheung MR#: [id number] : 1945 Acct:[id number] Age/Sex: 79 / F ADM Date: 07/09/24 Loc: CELINA Attending Dr: Demetrius Cote MD Ordering Physician: Demetrius Cote MD Date of Service: 07/09/24 Procedure(s): NM bone scan limited area Accession Number(s): [id number] cc: Demetrius Cote MD EXAMINATION: BONE SCAN [...] by Idris Perez MD in OV> 07/09/24 145 DD/ 1015 TD/TT: 07/09/24 1400 [employer] [facility]: [facility] [address] [address] Nuclear Medicine Report Signed Patient: Rose Cheung MR#: [id number] : 1945 Acct:[id number] Age/Sex: 79 / F ADM Date: 07/09/24 Loc: CELINA Attending Dr: Demetrius Cote MD Ordering Physician: Demetrius Cote MD Date of Service: 07/09/24 Procedure(s): NM bon e scan limited area Accession Number(s): [id number] cc: Demetrius Cote MD EXAMINATION: BONE SCAN [...] MD 07/09/2024 02:53 PM EST Dictated By: Mr kaci Perez MD Signed By: <Electronically signed by Idris Perez MD in OV> 07/09/24 1453 DD/ 1015 TD/TT: 07/09/24 1400 [employer] [facility]oser: [facility] Complete Blood Count Auto Di ff Reviewed date:04/24/2024 11:20:45 AM Interpretation: Performing Lab:[facility], [address] [place] [address] Notes/Report: White Blood Count 5.7 4.8-10.8 X10*3/uL [...] Panel Reviewed date:04/24/2024 11:20:45 AM Interpretation: Performing Lab:[facility], [address] [place] [address] Notes/Report: Sodium 141 135-145 mmol/L Potassium 4.7 [...] 19-9 Reviewed date:04/24/2024 11:20:45 AM Interpretation: Performing Lab:[facility], [address] [place] [address] Notes/Report: Carbohydrate Antigen 19-9 49 <34 U/mL This test was performed using the Siemens chemiluminescent method. Values obtained from different assay methods cannot be used interchangeably. CA 19-9 levels, regardless of value, should not be interpreted as absolute evidence of the presence or absence of disease. THIS TEST WAS PERFORMED AT: [employer] [address] [place] [phone] abdomen w con Reviewed date:04/24/2024 11:20:45 AM Interpretation: Performing Lab: Notes/Report: [address] [address] [address] Scan Report Signed Patient: Kayla Cheung MR#: [id number] : 1945 Acct:[id number] Age/Sex: 78 / F ADM Date: 04/16/24 Loc: HO.CT Attending Dr: Demetrius Cote MD Ordering Physician: Demetrius Cote MD Date of Service: 04/16/24 Procedure(s): CT abdomen w IV con Accession Number(s): [id number] cc: Demetrius Cote MD EXAMINATION: CT ABDOMEN [...] by: Horace Park DO 04/17/2024 02:50 PM [facility] [place] [place] Dictated By: Horace Park Jr, DO Signed By: <Electronically signed by Horace Park Jr, DO in OV> 04/17/24 1450 DD/ 1508 TD/TT: 04/16/24 1525 [employer] Closer: [address] [address] [address] Scan Report Signed Patient: Rose Cheung MR#: [id number] : 1945 Acct:[id number] Age/Sex: 78 / F ADM Date: 04/16/24 Loc: HO.CT Attending Dr: Demetrius Cote MD Ordering Physician: Demetrius Cote MD Date of Service: 04/16/24 Procedure(s): CT abd omen w IV con Accession Number(s): [id number] cc: Demetrius Cote MD EXAMINATION: CT ABDOMEN [...] following: *Automated exposure control *Adjustment of mA an d/or kV according to patient size (this includes [...] There is kyphotic deformity at this level. C T/CT abdomen w IV con IMPRESSION: 1. There [...] lower lobe seen best on image #3, se rafi #7. There is a 5 mm nodule within the left lower lobe seen best on image #21, series #6. This nodule appears similar to that seen on the October 14, 2019 CT abdomen. According to the UPD ATED 2017 Fleischner Society recommendations, the advised follow-up imaging for a single subsolid nodule <6 mm is: No routine follow-up is needed. Fleischner guideline s were followed. Electronically hamida d by: Horace Park DO 04/17/2024 02:50 PM EST Dictated By: Horace Park Jr, DO Signed By: <Electronically signed by Horace Park Jr, DO in OV> 04/17/24 1450 DD/ 1508 TD/TT: 04/16/24 1525 [employer] [facility]: [facility] XR lumbar spine 2-3V Reviewed date:06/24/2024 03:42:39 PM Interpretation: Performing Lab: Notes/Report: [place] [address] XRay Report Signed Patient: Kayla Cheung MR#: [id number] : 1945 Acct:[id number] Age/Sex: 79 / F ADM Date: 06/24/24 Loc: HO.ED Attending Dr: Ordering Physician: Generic ED Physician Date of Service: 06/24/24 Procedure(s): XR lumbar spine 2-3V Accession Number(s): [id number] cc: Demetrius Cote MD; Generic ED Physician [...] in OV> 06/24/2428 DD/ 3 TD/TT: 06/24/24913 [employer] [facility]: [place] [address] XRay Report Signed Patient: Rose Cheung MR#: [id number] : 1945 Acct:[id number] Age/Sex: 79 / F ADM Date: 06/24/24 Loc: HO.ED Attending Dr: Ordering Physician: Generic ED Physician Date of Service: 06/24/24 Procedure(s): XR lum bar spine 2-3V Accession Number(s): [id number] cc: Demetrius Cote MD; Generic ED Physician [...] of L 3 on L4. Severe disc degenera tion L3-4. There is otherwise mild to moderate disc degeneration. Facet degeneration m ost significant spanning L3-S1. X R/XR lumbar spine 2-3V IMPRESSION: 1. Superior endplate [...] Tristin Posadas MD in OV> 06/24/24927 DD/ TD/TT: 06/24/24913 [employer] [facility]: XR sacrum coccyx min 2V Reviewed date:06/24/2024 03:42:39 PM Interpretation: Performing Lab: Notes/Report: [address] [address] XRay Report Signed Patient: Kayla Cheung MR#: [id number] : 1945 Acct:[id number] Age/Sex: 79 / F ADM Date: 06/24/24 Loc: .ED Attending Dr: Ordering Physician: Generic ED Physician Date of Service: 06/24/24 Procedure(s): XR sacrum coccyx min 2V Accession Number(s): [id number] cc: Demetrius Cote MD; Generic ED Physician [...] in OV> 06/24/24921 DD/ 3 TD/TT: 06/24/24913 [employer] [facility]: [address] [address] XRay Report Signed Patient: Rose Cheung MR#: [id number] : 1945 Acct:[id number] Age/Sex: 79 / F ADM Date: 06/24/24 Loc: HO.ED Attending Dr: Ordering Physician: Generic ED Physician Date of Service: 06/24/24 Procedure(s): XR sac rum coccyx min 2V Accession Number(s): [id number] cc: Demetrius Cote MD; Generic ED Physician [...] degree of anatomic variability in this region. X R/XR sacrum coccyx min 2V IMPRESSION: Normal sacrum and coccyx. 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 Electronically hamida d by: Tristin Posadas MD 06/24/2024 09:22 AM [facility] [place], [place] Dictated By: Tristin Posadas MD Signed By: <Electronically signed by Tristin Posadas MD in OV> 06/24/[address] DD/ 3 TD/TT: 06/24/24913 [employer] [facility]: Complete Blood Count Auto Di ff Reviewed date:07/21/2024 12:18:28 PM Interpretation: Performing Lab:[facility], [address] [place] [address] Notes/Report: White Blood Count 7.5 4.8-10.8 X10*3/uL [...] INR Reviewed date:07/21/2024 12:18:28 PM Interpretation: Performing Lab:[address] [address] Notes/Report: Prothrombin Time 12.2 10.9-12.4 [employer] [...] Time Reviewed date:07/21/2024 12:18:28 PM Interpretation: Performing Lab:[address] [address] Notes/Report: Partial Thromboplastin Time 28.9 26.0-36.8 SEC For information regarding the monitoring of direct thrombin inhibitors, please refer to Pharmacy. Basic Metabolic Panel Reviewed date:07/21/2024 12:18:28 PM Interpretation: Performing Lab:[facility], [address] [place] [address] Notes/Report: Sodium 132 135-145 mmol/L Potassium 4.2 [...] date:07/22/2024 08:48:26 PM Interpretation: Performing Lab: Notes/Report: [address] [address] Interventional Radiology Rpt Signed Patient: Kayla Cheung MR#: [id number] : 1945 Acct:[id number] Age/Sex: 79 / F ADM Date: 07/20/24 Loc: .[facility] Attending Dr: Demetrius Cote MD Ordering Physician: Demetrius Cote MD Date of Service: 07/20/24 Procedure(s): IR kyphoplasty lumbar Accession Number(s): [id number] cc: Demetrius Cote MD; Physician,Unknown Examination: L2 [...] 07/22/24 1526 DD/ 1330 TD/TT: 07/20/24 1549 [employer] Cl[facility]: [address] [address] Interventional Radio logy Rpt Signed Patient: Rose Cheung MR#: [id number] : 1945 Acct:[id number] Age/Sex: 79 / F ADM Date: 07/20/24 Loc: .[facility] Attending Dr: Demetrius Cote MD Ordering Physician: Demetrius Cote MD Date of Service: 07/20/24 Procedure(s): IR kyphoplasty lumbar Accession Number(s): [id number] cc: Demetrius Cote MD; Physician,Unknown Examination: L2 kyphoplasty. CLINICAL INDICATION: Acute L2 compression fracture with significant pain ambulating. Osteopenia. COMPARISON: Bone sca n 07/09/2024 and lumbar spine 06/24/2024. TECHNIQUE: Following explaining fluoroscopy-guided L2 kyphoplasty detail procedure, benefits in risk aerated and consent was obtained. Patient was placed p nery on the fluoroscopy IR table and L2 [...] puncture site. 1 to 2 mL of b lood loss was noted. Conscious sedation was given during the exam. Pat ient was monitored by our IR nursing and IR physician during the exam. FINDINGS/ I R/IR kyphoplasty lumbar IMPRESSION: There is moderate L2 compression fractures with loss of 25- 30% of vertebral hei ght. There is old T12 and T11 wedge [...] 07/22/24 1526 DD/ 1330 TD/TT: 07/20/24 1549 [employer] [facility]: [facility] MM tomosynthesis screening L T Reviewed date:10/04/2024 08:13:31 PM Interpretation: Performing Lab: Notes/Report: [facility] [address] [place] [address] Mammography Report Signed Patient: Kayla Cheung MR#: [id number] : 1945 Acct:[id number] Age/Sex: 79 / F ADM Date: 08/17/24 Loc: HO.MAMMO Attending Dr: Demetrius Cote MD Ordering Physician: Demetrius Cote MD Results: 1Negativ e Date of Service: 08/17/24 Follow Up: 1 Year From [facility] Mammogram Procedure(s): MM tomosynthesis screening LT Accession Number(s): [id number] cc: Demetrius Cote MD EXAMINATION: MM SCREENING [...] 08/25/24 1459 DD/ 0850 TD/TT: 08/17/24 0908 [employer] [facility] Closer: [facility] [address] [place] [address] [place] [address] Mammography Report Signed Patient: Rose Cheung MR#: [id number] : 1945 Acct:[id number] Age/Sex: 79 / F ADM Date: 08/17/24 Loc: HO.MAMMO Attending Dr: Demetrius Cote MD Ordering Physician: Demetrius Cote MD Results: 1Negativ e Date of Service: 08/17/24 Follow Up: 1 Year From [facility] Mammogram Procedure(s): MM tomosynthesis screening LT Accession Number(s): [id number] cc: Demetrius Cote MD EXAMINATION: MM SCREENING DIGITAL BREAST TOMOSYNTHESIS, BILATERAL CLINICAL INFORMATION: Screening. Asymptoma tic. Right Mastectomy 2016. COMPARISON: Mammography: This st udy is compared with prior exams dating back to TECHNIQUE: Digital breast tomosynthesis is performed in both the craniocaudal and mediolateral oblique views along with computer-aided detection (CAD). Synthesized 2D image s are generated from the tomosynthesis. FINDINGS: There are scattered areas of fibroglandular density (ACR BI-RADS breast composition Category b). There are no signifi cant masses, abnormal calcifications, or other abnormalities. M M/MM tomosynthesis screening LT IMPRESSION: No mammographic evid ence of malignancy. ASSESSMENT: BI-RADS BI-RADS 1 - [...] 08/25/24 1459 DD/ 0850 TD/TT: 08/17/24 0908 [employer] Closer: MAMMOGRAM DIGITAL BILATERAL SCREEN Reviewed date:11/26/2024 09:26:11 AM Interpretation:undefined Performing Lab: Notes/Report: undefined CT bony pelvis Reviewed date:10/04/2024 08:13:31 PM Interpretation: Performing Lab: Notes/Report: [address] [address] [address] Scan Report Signed Patient: Kayla Cheung MR#: [id number] : 1945 Acct:[id number] Age/Sex: 79 / F ADM Date: 09/12/24 Loc: HO.ED Attending Dr: Ordering Physician: Ana Moreira Date of Service: 09/12/24 Procedure(s): CT bony pelvis Accession Number(s): [id number] cc: Demetrius Cote MD; Ana Moreira Report Number: [id number]: Total DLP = 0.00 mGy-cm CLINICAL HISTORY: pain CT pelvis without contrast Comparison: None Findings: Fecal retention again noted throughout the colon. There is diverticulosis present and there is faint stranding about the sigmoid colon, axial images 197 -205. The sacrum is intact. Xxom-vd-hwtosmyc degenerative changes seen at both hips. The [...] 09/12/24 1017 DD/ 1017 TD/TT: 09/12/24 1017 [employer] [facility]: [address] [address] [address] Scan Report Signed Patient: Rose Cheung MR#: [id number] : 1945 Acct:[id number] Age/Sex: 79 / F ADM Date: 09/12/24 Loc: HO.ED Attending Dr: Ordering Physician: Ana Moreira Date of Service: 09/12/24 Procedure(s): CT bon y pelvis Accession Number(s): [id number] cc: Demetrius Cote MD; Ana Moreira Report Number: [id number]: Total DLP = 0.00 mGy-cm CLINICAL HISTORY: pain CT pelvis without contrast Comparison: None Findings: Fecal retention agai n noted throughout the colon. There is diverticulo sis present and there is faint stranding about the sigmoid colon, axial images 197 -205. The sacrum is intact. Pflj-bb-yjmxdxiv degenerative changes seen at both hips. The [...] 09/12/24 1017 DD/ 1017 TD/TT: 09/12/24 1017 [employer] Closer: CT lumbar spine wo con Reviewed date:10/04/2024 08:13:31 PM Interpretation: Performing Lab: Notes/Report: [address] [address] [address] Scan Report Signed Patient: Kayla Cheung MR#: [id number] : 1945 Acct:[id number] Age/Sex: 79 / F ADM Date: 09/12/24 Loc: HO.ED Attending Dr: Ordering Physician: Ana Moreira Date of Service: 09/12/24 Procedure(s): CT lumbar spine wo IV con Accession Number(s): [id number] cc: Demetrius Cote MD; Ana Moreira Report Number: [id number]: Total DLP = 625.47 mGy-cm CLINICAL HISTORY: hx of malignancy, back pain CT lumbar spine without contrast Comparison: CT/CT/SR - CT LUMBAR SPINE POST VERT - [...] 09/12/24 1016 DD/ 1014 TD/TT: 09/12/24 1014 [employer] Closer: [place] [address] CT Scan Report Signed Patient: Rose Cheung MR#: [id number] : 1945 Acct:[id number] Age/Sex: 79 / F ADM Date: 09/12/24 Loc: .ED Attending Dr: Ordering Physician: Ana Moreira Date of Service: 09/12/24 Procedure(s): CT lum bar spine wo IV con Accession Number(s): [id number] cc: Demetrius Cote MD; Ana Moreira Report Number: [id number]: Total DLP = 625.47 mGy-cm CLINICAL HISTORY: hx of malignancy, back pain CT lumbar spine with out contrast Comparison: CT/CT/SR - CT LUMBAR SPINE POST VERT - 07/20/24 15:46 EDT Findings: Kyphoplasty cement a gain noted within T11, T12 and L2. There is minimal anterior superior endplate height loss at L3 which is new from prior. Complete disc space loss at L3-L4 with moderately severe central canal stenosis at this lev el, axial 209, series 5. There is also modera tely severe central canal stenosis at L4-L5, axial 350, series 6. Diffuse fecal retent ion within the colon. Moderate atheroscler otic disease. Impression: There is a mild ante rior superior endplate compression fracture L3 which is new since the comparison CT in July. Otherwise moderately severe degenerative and post kyphoplasty changes. This document has be en electronically signed by: Blue Cralin MD on 09/12/2024 10:14:43 Dictated By: Blue Carlin MD Signed By: <Electronically signed by Blue Carlin MD in OV> 09/12/24 1016 DD/ 1014 TD/TT: 09/12/24 1014 [employer] Closer: XR sacroiliac joint min 3V Reviewed date:10/04/2024 08:13:31 PM Interpretation: Performing Lab: Notes/Report: [address] [address] XRay Report Signed Patient: Kayla Cheung MR#: [id number] : 1945 Acct:[id number] Age/Sex: 79 / F ADM Date: 09/12/24 Loc: HO.ED Attending Dr: Ordering Physician: Ana Moreira Date of Service: 09/12/24 Procedure(s): XR sacroiliac joint min 3V Accession Number(s): [id number] cc: Demetrius Cote MD; Ana Moreira CLINICAL HISTORY: pain 3 views sacroiliac joints Comparison: None Findings No acute fractures. Moderate degenerative changes of the sacroiliac joints and bilateral hips, bkcs-utxgcyf-kvwd-right. Diffuse fecal retention within the colon. IMPRESSION: No evidence of fracture or acute malalignment. This document has been electronically signed by: Blue Carlin MD on 09/12/2024 09:12:10 Dictated By: Blue Carlin MD Signed By: <Electronically signed by Blue Carlin MD in OV> 09/12/24 0912 DD/ 0912 TD/TT: 09/12/2412 [employer] Closer: [address] [address] XRay Report Signed Patient: Rose Cheung MR#: [id number] : 1945 Acct:[id number] Age/Sex: 79 / F ADM Date: 09/12/24 Loc: HO.ED Attending Dr: Ordering Physician: Ana Moreira Date of Service: 09/12/24 Procedure(s): XR sacroiliac joint min 3V Accession Number(s): [id number] cc: Demetrius Cote MD; Ana Moreira CLINICAL HISTORY: pain 3 views sacroiliac joints Comparison: None Findings No acute fractures. Moderate degenerativ e changes of the sacroiliac joints and bilateral hips, arcv-yvhcfmf-qdqf-right. Diffuse fecal retent ion within the colon. IMPRESSION: No evidence of fract ure or acute malalignment. This document has be en electronically signed by: Blue Carlin MD on 09/12/2024 09:12:10 Dictated By: Blue Carlin MD Signed By: <Electronically signed by Blue Carlin MD in OV> 09/12/24911 DD/ 1 TD/TT: 09/12/24911 [employer] Closer: XR lumbar spine 2-3V Reviewed date:10/04/2024 08:13:31 PM Interpretation: Performing Lab: Notes/Report: [address] [address] XRay Report Signed Patient: Kayla Cheung MR#: [id number] : 1945 Acct:[id number] Age/Sex: 79 / F ADM Date: 09/12/24 Loc: .ED Attending Dr: Ordering Physician: Ana Moreira Date of Service: 09/12/24 Procedure(s): XR lumbar spine 2-3V Accession Number(s): [id number] cc: Demetrius Cote MD; Ana Moreira CLINICAL HISTORY: back pain 3 views lumbar spine Comparison: CT/CT/SR - CT LUMBAR SPINE POST VERT - [...] in OV> 09/12/24909 DD/ 8 TD/TT: 09/12/24908 [employer] Closer: [address] [address] XRay Report Signed Patient: Rose Cheung MR#: [id number] : 1945 Acct:[id number] Age/Sex: 79 / F ADM Date: 09/12/24 Loc: HO.ED Attending Dr: Ordering Physician: Ana Moreira Date of Service: 09/12/24 Procedure(s): XR lum bar spine 2-3V Accession Number(s): [id number] cc: Demetrius Cote MD; Ana Moreira CLINICAL HISTORY: ba ck pain 3 views lumbar spine Comparison: CT/CT/SR - CT LUMBAR SPINE POST VERT - 07/20/24 15:46 EDT Findings: Kyphoplasty cement n oted within fractures at T11, T12 and L2. No definite acute compression fracture. Complete disc space loss at L3-L4. Facet hypertrophy wi thin the lower lumbar spine noted. Diffuse fecal [...] in OV> 09/12/24909 DD/ 8 TD/TT: 09/12/24908 [employer] Closer: XR lumbar spine 1V Reviewed date:10/23/2024 01:45:21 PM Interpretation: Performing Lab: Notes/Report: [facility] [address] [place] [address] XRay Report Signed Patient: Kayla Cheung MR#: [id number] : 1945 Acct:[id number] Age/Sex: 79 / F ADM Date: 10/23/24 Loc: FCO Attending Dr: Samir Wilson MD, PhD Ordering Physician: Samir Wilson MD, PhD Date of Service: 10/23/24 Procedure(s): XR lumbar spine 1V Accession Number(s): [id number] cc: Demetrius Cote MD; Samir Wilson MD, [...] a pacemaker no fully included in the wkrjq-og-jabt. There is stent in the ascending thoracic aorta no fully included in the aeogh-wi-fuoj. There is residual oral contrast within the [...] Jean Christina MD in OV> 10/23/2448 DD/ 9 TD/TT: 10/23/24824 Commercial [facility] Closer: [facility] [address] [place] [address] XRay Report Signed Patient: Rose Cheung MR#: [id number] : 1945 Acct:[id number] Age/Sex: 79 / F ADM Date: 10/23/24 Loc: HO.HOSX Attending Dr: Rhett Wilson MD, PhD Ordering Physician: Samir Wilson MD, PhD Date of Service: 10/23/24 Procedure(s): XR lum bar spine 1V Accession Number(s): [id number] cc: Demetrius Cote MD; Samir Wilson MD, [...] a pacemaker no fully included in the jrwid-ut-nslr. There is stent in the ascending thoracic aorta no fully inclu ded in the kobht-wu-otdg. There is residual or al contrast within the large intestine from prior imaging exam. Vascular calcificati ons, aorta. X R/XR lumbar spine 1V IMPRESSION: Grade 1 retrolisthes is L2-3 and levoconvex scoliosis, lumbar spine. Status post kyphoplasty/vertebroplas ty procedure, T11, T12 and L2. Electronically hamida d by: Jean Kovacs MD 10/23/2024 09:48 AM EDT Dictated By: Jean Russell MD Signed By: <Electronically signed by Jean Christina MD in OV> 10/23/24 0948 DD/ 0820 TD/TT: 10/23/24 0825 [employer] Cl[facility]: XR DEXA axial skeleton Reviewed date:02/12/2025 06:22:18 AM Interpretation: Performing Lab: Notes/Report: [facility] [address] [place], [place] [address] Mammography Report Signed Patient: Kayla Cheung MR#: [id number] : 1945 Acct:[id number] Age/Sex: 79 / F ADM Date: 11/26/24 Loc: HO.MAMMO Attending Dr: Demetrius Cote MD Ordering Physician: Demetrius Cote MD Results: Date of Service: 11/26/24 Follow Up: Procedure(s): XR DEXA axial skeleton Accession Number(s): [id number] cc: Demetrius Cote MD EXAMINATION: DXA BONE DENSITY AXIAL HISTORY: M81.0 AGE RELATED OSTEOPOROSIS TECHNIQUE: [employer] Dual energy absorptiometry (DEXA) of the lumbar [...] is a trademark of the [employer]'s [place] for Metabolic Bone Disease, a World Health Organization (WHO) Collaborating Center. Electronically signed by: Demetrius Hager MD 11/26/2024 10:48 AM EDT Dictated By: Demetrius Hager MD Signed By: <Electronically signed by Demetrius Hager MD in OV> 11/26/24 1048 DD/ 1015 TD/TT: 11/26/24 1036 Commercial [facility] Closer: [facility] [address] [place] [address] Mammography Report Signed Patient: Rose Cheung MR#: [id number] : 1945 Acct:[id number] Age/Sex: 79 / F ADM Date: 11/26/24 Loc: HO.MAMMO Attending Dr: Demetrius Cote MD Ordering Physician: Demetrius Cote MD Results: Date of Service: 11/26/24 Follow Up: Procedure(s): XR DEX A axial skeleton Accession Number(s): [id number] cc: Demetrius Cote MD EXAMINATION: DXA BON E DENSITY AXIAL HISTORY: M81.0 AGE RELATED OSTEOPOROSIS TECHNIQUE: [employer] Dual energy absorptiometry (DEXA) of the lumbar spine, total left hip, and femoral neck was performed. COMPARISON: Comparis on is made with the prior examination dated 10/08/2017. FINDINGS: The bone mineral den sity of the lumbar spine is 0.930 g/cm2, corresponding to a T-score of -2.0, and a Z-score of -0.2. This is indicative of osteopenia. This represents a BM D change of -4.0% compared to the prior exam. This is not statistically significant. The bone mineral den sity of the left total hip is 0.789 g/cm2, corresponding to a T-score of -1.7, and a Z-score of 0.1. This is indicative of osteopenia. This represents a BM D change of -0.4% compared to the prior exam. This is not statistically significant. The bone mineral den sity of the left femoral neck is 0.695 g/cm2, corresponding to a T-score of -2.5, and a Z-score of -0.4. This is indicative of osteoporosis. This represents a BM D change of -2.4% compared to the prior exam. ____ M M/XR DEXA axial skeleton IMPRESSION: Based on bone minera l density, and according to World Health Organization (WHO) criteria, the diagnosis is consistent with osteoporosis. Statistically, 68% o f repeat scans fall within 1 SD (+/- 0.010 g/cm2 for AP spine L1-L4) and 1 SD (+/- 0.012 g/cm2 for femur total) FRAX is a trademark of the [employer]'s [place] [facility] Metabolic Bone Disease, a World Health Organization (WHO) Collaborating Center. Electronically hamida d by: Demetrius Hager MD 11/26/2024 10:48 AM EDT RP Dictated By: Demetrius Hager MD Signed By: <Electronically signed by Demetrius Hager MD in OV> 11/26/24 1048 DD/ 1015 TD/TT: 11/26/24 1036 [employer] Closer: XR cervical spine 3V Reviewed date:02/12/2025 06:22:18 AM Interpretation: Performing Lab: Notes/Report: [address] [address] XRay Report Signed Patient: Kayla Cheung MR#: [id number] : 1945 Acct:[id number] Age/Sex: 79 / F ADM Date: 02/10/25 Loc: [facility] Attending Dr: Demetrius Cote MD Ordering Physician: Demetrius Cote MD Date of Service: 02/10/25 Procedure(s): XR cervical spine 3V Accession Number(s): [id number] cc: Demetrius Cote MD Reason for Exam: [...] 02/10/25 1042 DD/ 1019 TD/TT: 02/10/25 1033 [employer] Closer: [address] [address] XRay Report Signed Patient: Rose Cheung MR#: [id number] : 1945 Acct:[id number] Age/Sex: 79 / F ADM Date: 02/10/25 Loc: HO.XRAY Attending Dr: Demetrius Cote MD Ordering Physician: Demetrius Cote MD Date of Service: 02/10/25 Procedure(s): XR cervical spine 3V Accession Number(s): [id number] cc: Demetrius Cote MD Reason for Exam: [...] is facet joint space narrowing and sclerosis. X R/XR cervical spine 3V IMPRESSION: Degenerative changes are most advanced at C5-6. Electronically hamida d by: Jersey Benavides MD 02/10/2025 10:42 AM EDT RP Dictated By: Jersey Benavides MD Signed By: <Electronically signed by Jersey Benavides MD in OV> 02/10/25 1042 DD/ 1019 TD/TT: 02/10/25 1033 [employer] Closer: Reason For Referral Reason mass head of pancrea s pancreatic atrophy new dilation of pancreatic duct evaluate and treat Diagnosis 1 Pancreatic mass (K86 .9) Referral Organization Demetrius Cote III, MD Referring Provider First Name Demetrius Referring Provider Last Name Cote Referring Provider Speciality Internal M edicine Referred Organization [facility] Address [address] [facility] [facility], [place], [id number] Referred Provider Specialty Gastroentero logy General Notes Magdalena Greenwood CMA 04/27 04:21:07 PM >ref/demo/progress notes/labs/x rays faxed to Dr Oseguera office at [phone] per Candido at the office ., Shana Archuleta 05/01/2024 02:51:36 PM > Spoke with Cayla at [facility], she stated they did receive [...] they needed this faxed to them at [phone]. This was done today . ATTN: Timo [...] First Name Demetrius Referring Provider Last Name Cote Referring Provider Speciality Internal M edicine [facility] Provider Specialty Unknown General Notes [...] First Name Demetrius Referring Provider Last Name Cote Referring Provider Speciality Internal edicine Referred Provider [facility], Pain Management Referred Provider Specialty Pain Medicin e General Notes Magdalena Greenwood [employer] 09/09 01:17:42 PM > referral ,progress note, x ray reports faxed to [facility] . I called they stated they will [...] First Name Demetrius Referring Provider Last Name Cote Referring Provider Speciality [facility] ed[facility] Referred Provider SAMIR WILSON Referred Provider Specialty [...] Orally twic e a day 06/23/2024 Active Melatonin 1 MG 1 tablet at bedtime as needed Orally Once a day Active Levothyroxine Sodium 100 MCG TAKE 1 TABLET DAILY Active Aspirin 81 81 MG 1 tablet Orally Once a day Active FeroSul 325 (65 Fe) MG TAKE 1 TABLET BY MOUTH EVERY DAY Active levoFLOXacin 500 MG 1 tablet Orally Once a day 09/10/2023 Active traZODone HCl 150 MG TAKE 1 [...] Problem Status W/U Status Risk Notes Problem 8027921 Former smoker (Z87.891) Active confirmed She is highly motivated not to smoke. We have discussed strategies for maintenance of abstinence in times of stress and illness. Problem Malignant neoplasm of female breast (685529317) Malignant neoplasm of unspecified site of right female breast (C50.911) Active confirmed Is no sign of recurrence or relapse her new primary today. Problem Hypothyroidism (17936936) Hypothyroidism, unspecified (E03.9) Active confirmed She has been compliant with her medication. She appears to be euthyroid today. No change in her regimen was made. Problem 378642197 Calculus of gallbladder without cholecystitis without obstruction (K80.20) Active confirmed Her gallstones were asymptomatic and now is no sign of cholecystitis today. She will be observed cautiously. Problem Sicca syndrome (02496924) Sicca syndrome, unspecified (M35.00) Active confirmed The oral drynes s remains unchanged. She has been compliant with frequent visits to her dentist. Problem Atrial fibrillation (80989864) Atrial fibrillation, unspecified (I48.91) Active confirmed Her heart rate is well controlled today on no change in her regimen was made. Problem 285942690 Anticoagulated (Z79.01) Active confirmed . There is no contraindication to this patient remaining on anticoagulation during the procedure. I have spoken to the surgical first assistant at the ophthalmologists office. They do not require the anticoagulation to be held. Problem 42007681 Cervical radiculopathy (M54.12) Active confirmed Surgery has agreed to surgery on the neck. We are waiting for a monitored MRI 8 because of the presence of a pacemaker. Problem 561552824 Hyperlipidemia type II (E78.0) Active confirmed Her lipids h ave been well controlled. Her fasting lipid profile will be ordered periodically. No change in her regimen was needed today. Problem 63238516 Atrial fibrillation (I48.91) Active confirmed She has been well controlled lately. She has been compliant with all of her medications. She was in a regular rhythm today Problem 127318093 Hodgkins disease (C81.90) Active confirmed There is no adenopathy. She continues in a durable remission. Problem 4733154 Psoriasis (L40.9) Active confirmed Her psoriasis i s very mild and does not require treatment at this time. Problem 707792962 Nonrheumatic aortic valve stenosis (I35.0) Active confirmed Her exercise tolerance is improved and she has no long-term side effects from repair of the aortic valve. He is under the care of the public welfare worker and compliant with her therapies. Problem 19266210 Hypothyroid (E03.9) Active confirmed Her TSH has bee n slightly elevated. If it remains this way on repeat her dose will be adjusted. Problem 269264229 Wedge compression fracture of T11 vertebra (S22.080A) Active confirmed Her pain has become minimally but it can be reproduced with percussion. No change in her regimen is needed. Problem 825862763 Marginal zone lymphoma (C85.80) Active confirmed There was no enlargement of the salivary gland or adenopathy or splenomegaly. She continues in a durable remission Problem 19445763 Sjoegren syndrome (M35.00) Active confirmed This problem is well controlled with oral medication. 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 No change in her regimen was needed. 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 The left breast is unremarkable. Problem Coagulopathy (92824707) Coagulopathy (D68.9) Active confirmed She has a history of pulmonary embolism and atrial fibrillation and is chronically anticoagulated. She has had no episodes of bleeding. She has had no further episodes of arterial clotting or venous thromboembolism. 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 A small hypodense lesion is seen measuring 1.8 x 1.1 cm which is unchanged. It will be followed radiographically at this time. Problem Pancreatic mass (221675196) Pancreatic mass (K86.9) Active confirmed The CA-19-9 [...] to have surgery on the pancreas. Problem 569520765 Osteopenia after menopause (M81.0) Active confirmed She will have periodic bone densities. I recommended Os-Samy 500 mg twice a day. The thousand units of vitamin D daily. She will be evaluated periodically for alendronate. Problem hypercholesterole tha (disorder) (97399487) Hypercholestere tha (E78.00) Active confirmed Current fasting lipid profile shows good control of her lipids. Problem 15306835 Chronic congestive heart failure, unspecified heart failure type (I50.9) Active confirmed Her CHF is now well compensated and she is compliant with her medications. Cardiology follow-up has been arranged. 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 No murmurs heard. 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 She decided against surgery. She has had chemotherapy and radiation. Problem 04650968077375117 Compression fracture of L2 vertebra with routine healing, subsequent encounter (S32.020D) Active confirmed On July 20, 2024 at [facility] she underwent kyphoplasty for an L2 compression fracture. Over the last 2 weeks she has developed severe pain in her lumbar spine a radiates down her right leg into her knee. I have Given her tramadol 50 mg every 8 hours with a followup visit in 48 hours.I have referred her to pain management. Further imaging and neurosurgery may be necessary. Problem [id number] Non-traumatic compression fracture of L2 lumbar vertebra with routine healing, subsequent encounter (M48.56XD) Active confirmed She continues t o have 8/10 pain. The 100 mg dose of tramadol is slightly better than the 50 mg dose.She did not want a stronger medication such as codeine for oxycodone. We're waiting for pain management, to give her an appointment. Vital Signs Heart Rate 87 /min 03/11/2025 Temperature 97.3 degrees Fahrenheit 03/11/2025 Blood pressure diastolic 72 mm Hg 03/11/2025 Height 63 in 03/11/2025 Blood pressure systolic 134 mm Hg 03/11/2025 Weight 137 lbs 03/11/2025 BMI 24.27 kg/m2 03/11/2025 Encounters Encounter Location Date Provider Diagnosis Demetrius Cote III, MD [address] [place] [address] [place] [address] 04/24/2024 Demetrius Cote Hodgkins disease C81 .90 ; Pancreatic mass K86.9 ; Former smoker Z87.891 ; Obesity E66.9 ; 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 ; Atrial fibrillation I48.91 ; Hypothyroid E03.9 ; Wedge compression fracture of T11 vertebra S22.080A ; 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 ; Sjoegren syndrome M35.00 and 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 Demetrius Cote III, MD [address] [place] [address] [place] [address] 09/04/2024 Demetrius Cote Hodgkins disease C81 .90 [...] Former smoker Z87.891 Demetrius Cote III, MD [address] [place] [address] [place] [address] 09/07/2024 Demetrius Cote Compression fracture of L2 [...] Former smoker Z87.891 Demetrius Cote III, MD [address] [place] [address] [place] [address] 09/09/2024 Demetrius Cote Non-traumatic compression fracture of L2 lumbar vertebra with routine healing, subsequent encounter M48.56XD ; Former smoker Z87.891 ; Pancreatic mass K86.9 ; Obesity E66.9 ; 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 ; Atrial fibrillation I48.91 ; Wedge compression fracture of T11 vertebra S22.080A ; Hypothyroid E03.9 and 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 Demetrius Cote III, MD [address] [place] [address] [place] [address] 09/16/2024 Demetrius Cote Compression fracture of L2 [...] E66.3 and 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 Demetrius Cote III, MD [address] [place] [address] [place] [address] 09/22/2024 Demetrius Cote Compression fracture of L3 [...] after menopause M81.0 Demetrius Cote III, MD [address] [place] [address] [place] [address] 09/29/2024 Demetrius Cote Former smoker Z87.89 1 [...] female breast C50.911 Demetrius Cote III, MD [address] [place] [address] [place] [address] 10/09/2024 Demetrius Cote Invasive ductal carcinoma of [...] gastric cancer C16.9 Demetrius Cote III, MD [address] [place] [address] [place] [address] 11/26/2024 Demetrius Cote 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 [...] (BMI 25.0-29.9) E66.3 Demetrius Cote III, MD [address] [place] [address] [address] [place] [address] 01/07/2025 Demetrius Cote 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 [...] and Anticoagulated Z79.01 Demetrius Cote III, MD [address] [place] [address] [place] [address] 02/05/2025 Demetrius Cote Malignant neoplasm o f [...] Hypothyroidism, unspecified E03.9 Demetrius Cote III, MD [address] [place] [address] [place] [address] 02/10/2025 Demetrius Cote Neck pain M54.2 ; [...] and Anticoagulated Z79.01 Demetrius Cote III, MD [address] [place] [address] [place] [address] 02/26/2025 Demetrius Cote Former smoker Z87.89 1 ; Cervical radiculopathy M54.12 ; Compression fracture of L2 vertebra, initial encounter S32.020A ; 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 ; Sicca syndrome, unspecified M35.00 ; Anticoagulated Z79.01 ; Nonrheumatic aortic valve stenosis I35.0 ; Hypothyroid E03.9 ; Psoriasis L40.9 and Wedge compression fracture of T11 vertebra S22.080A Demetrius Cote III, MD [address] [place] [address] [place] [address] 03/11/2025 Demetrius Cote Former smoker Z87.89 1 ; Cervical radiculopathy M54.12 ; 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 ; Hodgkins disease C81.90 ; Pancreatic mass K86.9 ; Hypothyroid E03.9 ; Atrial fibrillation I48.91 ; Sjoegren syndrome M35.00 ; 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 ; 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 and Compression fracture of L2 vertebra with routine healing, subsequent encounter S32.020D Demetrius Cote III, MD [address] [place] [address] [place] [address] 04/27/2024 Demetrius Cote III, MD [address] [place] [address] [place] [address] 05/01/2024 Demetrius Cote III, MD [address] [place] [address] [place] [address] 06/08/2024 Demetrius Cote III, MD [address] [place] [address] [place] [address] 06/23/2024 Demetrius Cote III, MD [address] [place] [address] [place] [address] 06/23/2024 Demetrius Cote III, MD [address] [place] [address] [place] [address] 06/25/2024 Demetrius Cote III, MD [address] [place] [address] [place] [address] 07/01/2024 Demetrius Cote Wedge compression fracture of T11 vertebra S22.080A ; Compression fracture of L2 vertebra, initial encounter S32.020A and History of osteopenia Z87.39 Demetrius Cote III, MD [address] [place] [address] [place] [address] 07/02/2024 Demetrius Cote III, MD [address] [place] [address] [place] [address] 07/03/2024 Demetrius Cote III, MD [address] [place] [address] [place] [address] 07/07/2024 Demetrius Cote Compression fracture of L2 vertebra, initial encounter S32.020A Demetrius Cote III, MD [address] [place] [address] [place] [address] 07/21/2024 Demetrius Cote III, MD [address] [place] [address] [place] [address] 09/04/2024 Demetrius Cote III, MD [address] [place] [address] [place] [address] 09/11/2024 Demetrius Cote III, MD [address] [place] [address] [place] [address] 10/01/2024 Demetrius Cote III, MD [address] [place] [address] [place] [address] 10/19/2024 Demetrius Cote III, MD [address] [place] [address] [place] [address] 10/29/2024 Demetrius Cote III, MD [address] [place] [address] [place] [address] 11/30/2024 Demetrius Cote III, MD [address] [place] [address] [place] [address] 02/09/2025 Demetrius Cote III, MD [address] [place] [address] [place] [address] 02/16/2025 Demetrius Cote III, MD [address] [place] [address] [address] [place], [place] [address] 03/01/2025 Demetrius Cote III, MD [address] [place] [address] [place] [address] 03/04/2025 Demetrius Cote Assessments Encounter Date Diagnosis (ICD Code) Assessment Notes T reatment Notes Treatment Clinical Notes 04/24/2024 Hodgkins disease (ICD-10 - C81.90) There [...] - S32.020D) On July 20, 2024 at [facility] she underwent kyphoplasty or and L2 [...] - S32.020D) On July 20, 2024 at [facility] she underwent kyphoplasty for an L2 [...] by radiation oncology and medical oncology at [facility]. 02/10/2025 Neck pain (ICD-10 - M54.2) During [...] routine healing, subsequent encounter (ICD-10 - S32.020D) 02/26/2025 Former smoker (ICD-10 - Z87.891) She [...] is likely an MRI will be scheduled. 03/11/2025 Former smoker (ICD-10 - Z87.891) She is highly motivated not to smoke. We have discussed strategies for maintenance of abstinence in times of stress and illness. 03/11/2025 Cervical radiculopathy (ICD-10 - M54.12) Surgery has agreed to surgery on the neck. We are waiting for a monitored MRI 8 because of the presence of a pacemaker. 07/01/2024 Wedge compression fracture of T11 vertebra (ICD-10 - S22.080A) 07/07/2024 Compression fracture of L2 vertebra, initial encounter (ICD-10 - S32.020A) 04/24/2024 Former smoker (ICD-10 - Z87.891) She [...] No change in her regimen is needed. 02/26/2025 Compression fracture of L2 vertebra, initial encounter (ICD-10 - S32.020A) She is being referred to endocrinology and interventional radiology for vertebroplasty all 03/11/2025 Invasive ductal carcinoma of right breast (ICD-10 - C50.911) The mastectomy site is free of any sign of relapse. The left breast is unremarkable. 07/01/2024 Compression fracture of L2 vertebra, initial encounter (ICD-10 - S32.020A) 04/24/2024 Obesity (ICD-10 - E66.9) She has [...] - S32.020D) On July 20, 2024 at [facility] she underwent kyphoplasty for an L2 [...] in times of stress and illness. 02/26/2025 Early gastric cancer (ICD-10 - C16.9) This was an incidental finding on upper endoscopy done and a biopsy a cystic pancreatic mass. She is going to arrange for resection with the surgeon next week.Currently undergoing staging. 03/11/2025 Hodgkins disease (ICD-10 - C81.90) There is no adenopathy. She continues in a durable remission. 07/01/2024 History of osteopenia (ICD-10 - Z87.39) 04/24/2024 Marginal zone lymphoma (ICD-10 - C85.80) [...] need to have surgery on the pancreas. 02/26/2025 Sicca syndrome, unspecified (ICD-10 - M35.00) The oral dryness remains unchanged. She has been compliant with frequent visits to her dentist. 03/11/2025 Pancreatic mass (ICD-10 - K86.9) The [...] need to have surgery on the pancreas. 04/24/2024 Atrial fibrillation (ICD-10 - I48.91) She [...] splenomegaly. She continues in a durable remission 02/26/2025 Anticoagulated (ICD-10 - Z79.01) . There is no contraindication to this patient remaining on anticoagulation during the procedure. I have spoken to the surgical first assistant at the ophthalmologists office. They do not require the anticoagulation to be held. 03/11/2025 Hypothyroid (ICD-10 - E03.9) Her TSH has been slightly elevated. If it remains this way on repeat her dose will be adjusted. 04/24/2024 Hypothyroid (ICD-10 - E03.9) Her TSH [...] procedure. I have spoken to the surgical first assistant at the ophthalmologists office. They do not [...] adenopathy. She continues in a durable remission. 02/26/2025 Nonrheumatic aortic valve stenosis (ICD-10 - I35.0) Her exercise tolerance is improved and she has no long-term side effects from repair of the aortic valve. He is under the care of the public welfare worker and compliant with her therapies. 03/11/2025 Atrial fibrillation (ICD-10 - I48.91) She has been well controlled lately. She has been compliant with all of her medications. She was in a regular rhythm today 04/24/2024 Wedge compression fracture of T11 vertebra [...] of relapse. The left breast is unremarkable. 02/26/2025 Hypothyroid (ICD-10 - E03.9) Her TSH has been slightly elevated. If it remains this way on repeat her dose will be adjusted. 03/11/2025 Sjoegren syndrome (ICD-10 - M35.00) This problem is well controlled with oral medication. 04/24/2024 Invasive ductal carcinoma of right breast [...] procedure. I have spoken to the surgical first assistant at the ophthalmologists office. They do not [...] problem is well controlled with oral medication. 02/26/2025 Psoriasis (ICD-10 - L40.9) Her psoriasis is very mild and does not require treatment at this time. 03/11/2025 Right knee DJD (ICD-10 - M17.9) The pain in her right knee is mild to moderate and unchanged. No change in her regimen was needed. 04/24/2024 Sjoegren syndrome (ICD-10 - M35.00) This [...] No change in her regimen is needed. 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 She decided against surgery. She has had chemotherapy and radiation. 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 No change in her regimen was needed. 09/04/2024 Nonrheumatic aortic valve stenosis (ICD-10 - I35.0) Her exercise tolerance is improved and she has no long-term side effects from repair of the aortic valve. He is under the care of the public welfare worker and compliant with her therapies. 09/07/2024 Former [...] change in her regimen was needed today. 03/11/2025 Compression fracture of L2 vertebra with routine healing, subsequent encounter (ICD-10 - S32.020D) On July 20, 2024 at [facility] she underwent kyphoplasty for an L2 compression fracture. Over the last 2 weeks she has developed severe pain in her lumbar spine a radiates down her right leg into her knee. I have Given her tramadol 50 mg every 8 hours with a followup visit in 48 hours.I have referred her to pain management. Further imaging and neurosurgery may be necessary. 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 No murmurs heard. 09/16/2024 Nonrheumatic aortic valve stenosis (ICD-10 - I35.0) Her exercise tolerance is improved and she has no long-term side effects from repair of the aortic valve. He is under the care of the public welfare worker and compliant with her therapies. 09/29/2024 Chronic [...] He is under the care of the public welfare worker and compliant with her therapies. 01/07/2025 Anticoagulated (ICD-10 - Z79.01) . There is no contraindication to this patient remaining on anticoagulation during the procedure. I have spoken to the surgical first assistant at the ophthalmologists office. They do not require the anticoagulation to be held. 02/05/2025 Hypothyroid (ICD-10 - E03.9) Her TSH has been slightly elevated. If it remains this way on repeat her dose will be adjusted. 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 No murmurs heard. 09/04/2024 Anticoagulated (ICD-10 - Z79.01) . There is no contraindication to this patient remaining on anticoagulation during the procedure. I have spoken to the surgical first assistant at the ophthalmologists office. They do not [...] procedure. I have spoken to the surgical first assistant at the ophthalmologists office. They do not [...] by radiation oncology and medical oncology at [facility]. 09/04/2024 Former smoker (ICD-10 - Z87.891) She [...] He is under the care of the public welfare worker and compliant with her therapies. 02/10/2025 Anticoagulated (ICD-10 - Z79.01) . There is no contraindication to this patient remaining on anticoagulation during the procedure. I have spoken to the surgical first assistant at the ophthalmologists office. They do not [...] Provider Name:Demetrius Cote , 04/19/2025 10:30:00 AM, [address] [place] [address] [address], [place], [phone], Provider Name:Demetrius Cote , 11/30/2025 09:30:00 AM, [address] [place] [address] [address], [place], [phone], Insurance Providers Payer Name Payer Address Payer Phone Subscriber Number Group Number Insured Name Patient Relationship to Insured Coverage Start Date Coverage End Date MEDICARE NGS [address] [place] [phone] [id number] Kayla Cheung Self - patient is the insured [facility] [address] [place], [place] [id number] [phone] [id number] Kayla Cheung Self - patient is the insured Medical (General) History Medical History History ICD Code nulliparous psoriasis hodgkins [id number] sjogren's syndrome 2000 insomnia Hypothyroidism DJD of the right knee marginal zone lymphoma 2006 tia 10/2011 bradycardia 10/2011 afib last mammogram @[facility] [place] compression fracture vertebral body T11, T12 [id number] carcinoma of the right breast Fe bruary, 2014 former smoker April 2015 cystic lesion of pancreas cholelithiasis paroxysmal atrial fibrillation pacemaker, high degree AV block Aortic stenosis December 01, 2021, valve are a 0.9 cm2 Aortic regurgitation Tricuspid regurgitation breast cancer right Surgical History Surgery Date(Month/Year) Ai 2000 Spleen removed 1987 Liver Bx 11/23/[address] Hector Thorne at [facility] [place] 09/2023 Aorta Catherization 08/2022 endoscopy at [facility] 01/2020 battery replacement in pacemaker 02/2020 Mastectomy right breast 11/08/2014 kyphoplasty 10/2014, 09/2017 pacermaker insertion 10/2011 Hospitalization History Reason Date(Month/Year) Multiple
--- NOTE | 2025-04-08 08:46 | PC.NURSE ---
IR RN: pt tolerated MRI without difficulty; SR 84 throughout procedure with pacemaker in MRI mode; [employer] rep Kaykay Samuel on site with this RN
--- OUTSIDE RECORDS SUMMARY | 2025-04-08 12:00 | XMS_ITS ---
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 Demetrius Cote III Primary Care Provider REASON FOR VISIT Follow up Social History Sex Assigned At : Social History Observation Description Sex Assigned At Female Encounters Encounter Location Date Provider Diagnosis Demetrius Cote III, MD [address] [place] [address] [address] [facility] [place] [address] 04/08/2025 Demetrius Cote Plan Of Treatment Next Appt Details Provider Name:Demetrius Cote , 04/19/2025 10:30:00 AM, [address] [place] [address] [place], [address], Provider Name:Demetrius Cote , 11/30/2025 09:30:00 AM, [address] [place] [address] [address] [facility] [place], [phone], Progress Notes * EDILSONCarlos CHANEYrenaDOB:[birth year] (79 yo F)Acc No.[id number]:04/08/2025 Progress Notes Patient: Kayla TORRES Provider: Trinidad Cote MD :1945 A ge:79 Y S ex:Female Date:04/08/2025 Address:[address] [place] [address], [id number] Subjective: * Chief Complaints: * 1 . Follow up. * Medical History: Objective: * Vitals: Assessment: Plan: * Treatment: * Images: * The named appointment provid er may or may not be the originator of this progress note, and it is not deemed complete until electronically signed by the appointment provider. Sign off status: Pending * Provider: Trinidad Cote MD Date: 06/09/2024 Generated for Yoan moise/Kris/Chrisitting on: 06/09/2024 07:33 AM EST
== END 2025-04-08 07:27 | disposition home or self-care (01) ==
LOC: HO.MRI 07:26
PROVIDERS: PCP Internal Medicine Medical Oncology; Visit Provider Neurological Surgery
DX: M54.2 Cervicalgia (principal); M81.0 Age-related osteoporosis without current pathological fracture
CPT/HCPCS: 72141

== ENCOUNTER → 2025-04-08 07:26 | Outpatient (BNV) | payer MEDICARE, SELFPAY | PROVIDERS: PCP Internal Medicine Medical Oncology; Visit Provider Radiology Diagnostic Radiology | DX: M47.812 Spondylosis without myelopathy or radiculopathy, cervical region (principal); M48.02 Spinal stenosis, cervical region | CPT/HCPCS: 72141 ==